=== PATIENT | male | born 1950 | race Caucasian/White ===

== ENCOUNTER 2020-08-23 10:49 | Inpatient (IN) ==
[2020-08-23] MEDS ORDERED: ONDANSETRON INJ 2 MG/ML 2 ML VIAL IV STA (11:10)
[2020-08-23] MEDS ORDERED: MoRPHine SULFATE 4 MG/ML 1 ML CARP\\VIAL IV PRN (11:10)
[2020-08-23] MEDS ORDERED: SODIUM CHLORIDE 0.9% 500 ML IV SCH (11:15)
[2020-08-23 11:34] LABS: Hematocrit (blood only) 40.5 % (42-52); Hemoglobin 13.4 g/dL (14.0-18.0); Mean Corpuscular Hemoglobin 30.3 pg (25-34); Mean Corpuscular Hgb Conc 33.1 g/dL (32-36); Mean Corpuscular Volume 91.6 fL (80-100); RDW Coefficient of Variation 16.9 % (11.5-14.5); RDW Standard Deviation 56.5 fL (36.4-46.3); Red Blood Count 4.42 M/uL (4.7-6.1); White Blood Count 6.78 K/uL (4.8-10.8)
[2020-08-23 11:43] LABS: iSTAT Creatinine 1.2 mg/dl (0.6-1.3); iSTAT Hemoglobin 12.9 g/dl (14.0-18.0); iSTAT Ionized Calcium 1.19 mmol/l (1.12-1.32); iSTAT Potassium 3.8 mmol/L (3.3-5.0)
--- NOTE | 2020-08-23 11:44 | Emergency Department Note ---
Impression & Plan Abdominal pain, Esophageal varices, Portal vein thrombosis, Acute upper gastrointestinal bleeding, Colitis ED Provider Note NAME: EARNEST POOL AGE: 70 SEX: M : 1950 ARRIVES VIA: Ambulance INFORMANT: Patient, ED PROVIDER(S): Jonh Karimi DO CHIEF COMPLAINT: Abdominal pain HPI: The patient is a 70-year-old male who presented to the emergency department for an evaluation of abdominal pain. The patient has had ongoing abdominal pain for the last 6 to 8 weeks. He has been seen in our facility as well as [facility] in [place]. He states that no specific diagnosis was made but at one time he was found to have a bowel obstruction. He denies having any nausea or vomiting but does complain of dark stool. He does not have a history of alcoholism but does have a history of esophageal varices and hepatitis C. He states his pain is moderate to severe. He was managed with outpatient pain medication but it does not appear to be helping at this time. He denies having any recent travel. He denies having any falls. He has not been seen by his primary care physician. He denies having any hematuria or flank pain. He states his pain is moderate to severe at this time. Worsened with any movement. ROS: See above HPI for pertinent positives & negatives. A total of 10 systems reviewed and were otherwise negative. PAST MEDICAL HISTORY: See Below PAST SURGICAL HISTORY: See Below FAMILY HISTORY: See Below SOCIAL HISTORY: See Below HOME MEDICATIONS: See Below ALLERGIES: See Below VITALS: See Below PHYSICAL EXAMINATION: GENERAL: Patient is awake alert in no acute distress patient is resting comfortably and showing no signs of anxiety EYES: The conjunctivae are clear. The pupils are round and reactive. EARS, NOSE, MOUTH AND THROAT: The nose is without any evidence of any deformity. Mucous membranes are moist. Tongue is midline. NECK: The neck is nontender and supple. RESPIRATORY: Normal respiratory effort is noted there is no evidence of wheezing rhonchi or rales CARDIOVASCULAR: Regular rate and rhythm noted there no murmurs rubs or gallops normal S1 normal S2. GASTROINTESTINAL: The abdomen is moderately distended diffusely tender. There is specific tenderness in the right lower quadrant. There is no guarding rigidity. Rectal exam revealed dark stool that was heme positive MUSCULOSKELETAL/EXTREMITIES: There is no evidence of gross deformity full range of motion is noted in the hips and shoulders. SKIN: There is no obvious evidence of any rash. There are no petechiae, pallor or cyanosis noted. NEUROLOGIC: Patient is awake alert and oriented x3 strength is symmetric patellar reflexes are 2+ bilaterally MEDICAL DECISION MAKING: The patient is a 70-year-old male who presented to the emergency department with multiple complaints including abdominal pain. The patient was having right lower quadrant abdominal pain. He had very severe pain on physical exam. I discussed the patient's laboratory and radiographic studies with him. He was found to have signs of upper GI bleeding and has a history of varices. He was treated with proton pump inhibitor. He was also treated with IV pain medication IV fluids. He was found to have signs of a nonocclusive portal vein thrombosis. Given the patient's history and findings I discussed his case with the on-call [facility] hospitalist. They have agreed to evaluate the patient in the emergency department for further management and disposition. At this time I do not feel the patient would do well with blood thinners given his mayo mitten GI bleeding. Triage Nursing notes reviewed. Prior medical records reviewed Vital Signs: reviewed and remarkable for elevated blood pressure Differential diagnosis: Etiologies such as appendicitis, diverticulitis, obstruction, inflammatory bowel disease, renal colic, PUD, biliary pathology, pancreatitis, mesenteric ischemia, aortic pathology, infections, genitourinary, UTI, perforated viscus, as well as others were entertained. ER treatment provided: See below Diagnostics interpreted by me: ECG: EKG was obtained in the emergency department. My interpretation is normal sinus rhythm at 76 bpm. There is no ectopy. There is no acute ST segment abnormalities noted. This was compared to a tracing from August 142019. No significant changes were noted. Cardiac Monitoring: An order was placed for continuous cardiac monitoring. The monitor shows a rate of 82 bpm with sinus rhythm. Laboratory studies: As stated above and show below. Imaging studies: See below Consultation(s): 1335: I discussed this case with Dr. Ceja. He will evaluate the patient in the emergency department for further management and disposition. Past Med/Surg History Medical History CAD (coronary artery disease) CVA (cerebral vascular accident) Surgical History H/O heart artery stent H/O inguinal hernia repair History of cholecystectomy Social History Smoking Status: Current every day smoker Tobacco Type: Cigarettes Preferred Language: Grenadian Feels Safe at Home: Yes Allergies Allergies Allergy/AdvReac Type Severity Reaction Status Date / Time fentanyl Allergy Severe WENT Verified 08/23/20 12:10 CRAZY, HALLUCINATIONS, BIZARRE BEHAVIOR Home Meds Home Medications Medication Instructions Recorded Confirmed cyanocobalamin (vitamin B-12) 500 mcg PO QAM 08/14/20 08/23/20 [Vitamin B-12] ferrous sulfate 325 mg PO QAM 08/14/20 08/23/20 finasteride [Proscar] 5 mg PO QAM 08/14/20 08/23/20 folic acid 1 mg PO QAM 08/14/20 08/23/20 metformin 500 mg PO BID 08/14/20 08/23/20 pantoprazole 40 mg PO QAM 08/14/20 08/23/20 tamsulosin 0.4 mg PO QAM 08/14/20 08/23/20 tiotropium bromide [Spiriva 2 puff INHALATION QAM 08/14/20 08/23/20 Respimat] atorvastatin 20 mg PO DAILY 08/23/20 08/23/20 budesonide-formoterol 2 puff INHALATION BID 08/23/20 08/23/20 cyclobenzaprine 5 mg PO BID PRN 08/23/20 08/23/20 furosemide 20 mg PO DAILY 08/23/20 08/23/20 gabapentin 600 mg PO TID 08/23/20 08/23/20 insulin aspart U-100 20 unit SUBCUT TIDM 08/23/20 08/23/20 insulin glargine 60 unit SUBCUT HS 08/23/20 08/23/20 magnesium oxide 420 mg PO DAILY 08/23/20 08/23/20 meclizine 12.5 mg PO TID PRN 08/23/20 08/23/20 melatonin 3 mg PO HS PRN 08/23/20 08/23/20 multivitamin with minerals 1 tab PO DAILY 08/23/20 08/23/20 [Multiple Vitamin-Minerals] Results & Data (ED) Vital Signs Vital Signs - 24 hr 08/23/20 10:44 08/23/20 11:00 08/23/20 11:02 Temperature 37 C Temperature Source Oral Pulse Rate 82 76 79 Pulse Rate from SpO2 Sensor 76 78 Pulse Rhythm Regular Pulse Strength Normal Respiratory Rate 22 17 19 Respiratory Effort / Characteristics Non-Labored Spontaneous Respiratory Depth Normal Respiratory Pattern Regular Blood Pressure 174/109 H 176/100 H Blood Pressure Mean 130 125 Blood Pressure Position Lying Pulse Oximetry 96 96 97 Oxygen Delivery Method Room Air Sepsis Recent Fever Within 48 Hours No Sepsis New/Unexplained Change in Mental Status No Sepsis Action Taken by Nursing No Action Required 08/23/20 11:30 08/23/20 11:32 08/23/20 12:01 Temperature Temperature Source Pulse Rate 91 H 82 Pulse Rate from SpO2 Sensor 81 81 Pulse Rhythm Pulse Strength Respiratory Rate 23 20 Respiratory Effort / Characteristics Respiratory Depth Respiratory Pattern Blood Pressure 180/117 H 194/109 H Blood Pressure Mean 148 137 Blood Pressure Position Pulse Oximetry 97 96 Oxygen Delivery Method Room Air Sepsis Recent Fever Within 48 Hours Sepsis New/Unexplained Change in Mental Status Sepsis Action Taken by Nursing 08/23/20 12:02 08/23/20 12:30 08/23/20 13:00 Temperature Temperature Source Pulse Rate 77 78 78 Pulse Rate from SpO2 Sensor 77 78 78 Pulse Rhythm Pulse Strength Respiratory Rate 22 14 14 Respiratory Effort / Characteristics Respiratory Depth Respiratory Pattern Blood Pressure 172/96 H 166/100 H Blood Pressure Mean 114 112 Blood Pressure Position Pulse Oximetry 97 94 94 Oxygen Delivery Method Sepsis Recent Fever Within 48 Hours Sepsis New/Unexplained Change in Mental Status Sepsis Action Taken by Nursing 08/23/20 13:30 08/23/20 14:00 08/23/20 14:30 Temperature Temperature Source Pulse Rate 79 79 81 Pulse Rate from SpO2 Sensor Pulse Rhythm Pulse Strength Respiratory Rate 12 16 18 Respiratory Effort / Characteristics Respiratory Depth Respiratory Pattern Blood Pressure 164/99 H 190/103 H 159/107 H Blood Pressure Mean 114 155 113 Blood Pressure Position Pulse Oximetry Oxygen Delivery Method Sepsis Recent Fever Within 48 Hours Sepsis New/Unexplained Change in Mental Status Sepsis Action Taken by [facility] Medications Current Medication List: was personally reviewed by me Laboratory Data Attestation: I reviewed the patient's lab results. Result diagrams: 08/23/20 11:22 08/23/20 11:22 Lab Results 08/23/20 08/23/20 08/23/20 Range/Units 11:22 11:22 11:22 WBC 6.78 (4.8-10.8) K/uL RBC 4.42 L (4.7-6.1) M/uL Hgb 13.4 L (14.0-18.0) g/dL POC Hgb (14.0-18.0) g/dl Hct 40.5 L (42-52) % POC Hct (42-52) % MCV 91.6 (80-100) fL MCH 30.3 (25-34) pg MCHC 33.1 (32-36) g/dL RDW Std Deviation 56.5 H (36.4-46.3) fL RDW Coeff of Anderson 16.9 H (11.5-14.5) % Plt Count 93 L (130-400) K/uL MPV 11.2 H (7.4-10.4) fL Immature Gran % (Auto) 0.3 % Neut % (Auto) 56.7 % Lymph % (Auto) 12.2 % Fillmore % (Auto) 9.3 % Eos % (Auto) 20.6 % Baso % (Auto) 0.9 % Neut # (Auto) 3.84 (1.4-6.5) K/uL Lymph # (Auto) 0.83 L (1.2-3.4) K/uL Fillmore # (Auto) 0.63 H (0.11-0.59) K/uL Eos # (Auto) 1.40 H (0-0.5) K/uL Baso # (Auto) 0.06 (0-0.2) K/uL Immature Gran # (Auto) 0.02 (0.00-0.02) K/uL Platelet Estimate Decreased L (Normal) PT 12.2 H (9.0-12.0) Seconds INR 1.2 H (0.9-1.1) APTT 28.8 (21.0-31.0) Seconds PTT Ratio 1.0 POC Sodium (135-144) mmol/L Sodium 140 (136-145) mmol/L POC Potassium (3.3-5.0) mmol/L Potassium 3.7 (3.5-5.1) mmol/L POC Chloride (101-112) mmol/L Chloride 112 H (98-107) mmol/L Carbon Dioxide 19 L (21-32) mmol/L POC Total CO2 (24-31) mmol/L Anion Gap 10.0 (3-11) POC Anion Gap (16-25) mmol/L POC BUN (7-18) mg/dl BUN 13 (7-18) mg/dl Creatinine 1.41 H (0.6-1.4) mg/dl POC Creatinine (0.6-1.3) mg/dl Est Cr Clr Drug Dosing 59.4 ml/min Est GFR ( Amer) 58.1 Est GFR (Non-Af Amer) 50.1 BUN/Creatinine Ratio 9.4 L (10-20) Glucose 128 H (70-99) mg/dl POC Glucose (other) (70-99) mg/dl Calcium 9.4 (8.5-10.1) mg/dl POC Ioniz Calcium Dirk (1.12-1.32) mmol/l Total Bilirubin 2.7 H (0.2-1) mg/dl AST 102 H (15-37) U/L ALT 49 (12-78) U/L Alkaline Phosphatase 149 H (45-117) U/L Troponin I < 0.015 (0-0.045) ng/ml Total Protein 7.9 (6.4-8.2) gm/dl Albumin 3.1 L (3.4-5.0) gm/dl Globulin 4.8 H (2.5-4.0) gm/dl Albumin/Globulin Ratio 0.7 L (0.9-2) Lipase 218 (73-393) U/L 08/23/20 Range/Units 11:30 WBC (4.8-10.8) K/uL RBC (4.7-6.1) M/uL Hgb (14.0-18.0) g/dL POC Hgb 12.9 L (14.0-18.0) g/dl Hct (42-52) % POC Hct 38 L (42-52) % MCV (80-100) fL MCH (25-34) pg MCHC (32-36) g/dL RDW Std Deviation (36.4-46.3) fL RDW Coeff of Anderson (11.5-14.5) % Plt Count (130-400) K/uL MPV (7.4-10.4) fL Immature Gran % (Auto) % Neut % (Auto) % Lymph % (Auto) % Fillmore % (Auto) % Eos % (Auto) % Baso % (Auto) % Neut # (Auto) (1.4-6.5) K/uL Lymph # (Auto) (1.2-3.4) K/uL Fillmore # (Auto) (0.11-0.59) K/uL Eos # (Auto) (0-0.5) K/uL Baso # (Auto) (0-0.2) K/uL Immature Gran # (Auto) (0.00-0.02) K/uL Platelet Estimate (Normal) PT (9.0-12.0) Seconds INR (0.9-1.1) APTT (21.0-31.0) Seconds PTT Ratio POC Sodium 142 (135-144) mmol/L Sodium (136-145) mmol/L POC Potassium 3.8 (3.3-5.0) mmol/L Potassium (3.5-5.1) mmol/L POC Chloride 111 (101-112) mmol/L Chloride (98-107) mmol/L Carbon Dioxide (21-32) mmol/L POC Total CO2 18 L (24-31) mmol/L Anion Gap (3-11) POC Anion Gap 19.0 (16-25) mmol/L POC BUN 12 (7-18) mg/dl BUN (7-18) mg/dl Creatinine (0.6-1.4) mg/dl POC Creatinine 1.2 (0.6-1.3) mg/dl Est Cr Clr Drug Dosing ml/min Est GFR ( Amer) Est GFR (Non-Af Amer) BUN/Creatinine Ratio (10-20) Glucose (70-99) mg/dl POC Glucose (other) 131 H (70-99) mg/dl Calcium (8.5-10.1) mg/dl POC Ioniz Calcium Dirk 1.19 (1.12-1.32) mmol/l Total Bilirubin (0.2-1) mg/dl AST (15-37) U/L ALT (12-78) U/L Alkaline Phosphatase (45-117) U/L Troponin I (0-0.045) ng/ml Total Protein (6.4-8.2) gm/dl Albumin (3.4-5.0) gm/dl Globulin (2.5-4.0) gm/dl Albumin/Globulin Ratio (0.9-2) Lipase (73-393) U/L Administered Medications Discontinued Medications Sodium Chloride (Nss) 500 mls @ 999 mls/hr IV .Q31M ELGIN Stop: 08/23/20 11:45 Last Infusion: 08/23/20 12:27 Dose: 0 mls/hr Documented by: [id number] Admin: 08/23/20 11:33 Dose: 999 mls/hr Documented by: [id number] Pantoprazole Sodium 40 mg/ (Syringe) 10 mls @ 5 mls/min IV NOW ONE Stop: 08/23/20 13:07 Last Admin: 08/23/20 14:15 Dose: 5 mls/min Documented by: [id number] Famotidine (Pepcid 20mg Iv Push) 20 mg in 5 mls @ 2.5 mls/min IV NOW STA Stop: 08/23/20 13:07 Last Admin: 08/23/20 13:25 Dose: 2.5 mls/min Documented by: [id number] Ioversol (Ioversol 100ml) 94 ml IV ONCE ONE Stop: 08/23/20 11:47 Last Admin: 08/23/20 11:47 Dose: 94 ml Documented by: [id number] Morphine Sulfate (Morphine Sulfate 4 Mg/Ml 1 Ml Carp\Vial) 4 mg IV Q15M PRN PRN Reason: Pain Stop: 09/06/20 11:09 Last Admin: 08/23/20 11:33 Dose: 4 mg Documented by: [id number] Ondansetron HCl (Ondansetron Inj 2 Mg/Ml 2 Ml Vial) 4 mg IV NOW STA Stop: 08/23/20 11:11 Last Admin: 08/23/20 11:33 Dose: 4 mg Documented by: [id number] Imaging Data Radiologist's Impression: Patient: EARNEST POOL Admit Date: 08/23/20 MR#: [id number] Address1: [address] [place] [address] Acct ID:[id number] Address2: Date: 1950 [facility] Zip: [place] [address] Age: 70 Location: ED Sex: M Room/Bed: Att Phy: Diagnosis: ABD PAIN Marialuisa Phy: Osmany Molina MD Service Date: 08/23/20 [facility] Phy: Interpreting Phy: James Reyna Admit Phy: Ordering Phy: Jonh Karimi DO cc: ~ ABDOMEN AND PELVIS CT WITH IV CONTRAST CT DOSE: 973.46 mGycm HISTORY: Acute generalized abdominal pain. pain, hx of SBO TECHNIQUE: Multiaxial CT images of the abdomen and pelvis were performed following the IV administration of 94 cc of Optiray 320, A dose lowering technique was utilized adhering to the principles of ALARA. COMPARISON STUDY: CT abdomen and pelvis 08/14/2020 FINDINGS: Clear lung bases. No pneumatosis or pneumoperitoneum. Imaged inferior cardiac chambers are unremarkable with coronary artery calcifications. Mild/moderate splenomegaly. Mild generalized pancreatic atrophy. Unremarkable adrenal glands. Cholecystectomy. Cirrhotic liver disease without focal hepatic mass lesion identified. Upper abdominal varices. 2.9 cm partially occlusive filling defect involves the main portal vein. Unremarkable right kidney. 1.2 cm hypodense lesion of the interpolar left kidney suggest probable cyst. Prostamegaly with moderate urinary bladder wall thickening suggestive of chronic bladder outlet obstruction. Small fat and fluid filled left inguinal hernia. Mild to moderate abdominopelvic ascites. 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 Unchanged mildly prominent retroperitoneal lymph nodes measure up to 7 mm. Periesophageal varices with distal esophageal wall thickening. Duodenal diverticulum. Mild the prominent small bowel loops measure up to 2.8 cm. Several loops of small bowel are fluid-filled. No bowel obstruction. There is mild wall thickening involving the ascending colon, hep atic flexure and proximal transverse colon. Mild wall thickening of the terminal ileum. Visualized appendix appears noninflamed. Unremarkable soft tissues. Bones appear intact. Degenerative changes of the spine, pelvis and hips. IMPRESSION: 1. Cirrhotic liver disease with stigmata of portal venous hypertension including splenomegaly with upper abdominal varices and mild to moderate splenomegaly. 2. 3 cm partially occlusive thrombus of the main portal vein. 3. Wall thickening of the ascending colon, hepatic flexure and proximal transverse colon is suggestive of portal colopathy. An infectious or inflammatory colitis is considered less likely. Mild wall thickening of the terminal ileum is also likely secondary to fluid overload with cirrhotic liver disease, enteritis considered less likely. 4. The visualized appendix appears noninflamed. 5. No bowel obstruction. ACT 112: Negative or not required by law. The above report was generated using voice recognition software. It may contain grammatical, syntax or spelling errors. Electronically signed by: Cesar Reyna M.D. 08/23/2020 12:18 PM Dictated: 08/23/20 1203 Transcribed: 08/23/201202 Blood Pressure Blood Pressure Findings: Elevated blood pressure Blood Pressure Disposition: further management by hospitalist Discharge Plan Visit Data Chief Complaint: Abdominal Pain ED Provider: Jonh Karimi Discharge Problem: Abdominal pain, Esophageal varices, Portal vein thrombosis, Acute upper gastrointestinal bleeding, Colitis Patient Disposition: Admitted As Inpatient Discharge Instructions Interventions: ED Discharge Assessment Last Done: 08/23/20 16:00 Discharge Problem: Abdominal pain Qualifiers: Abdominal location: right lower quadrant Qualified Code(s): R10.31 - Right lower quadrant pain Esophageal varices Qualifiers: Esophageal varices type: unspecified type Esophageal varices bleeding: without bleeding Qualified Code(s): I85.00 - Esophageal varices without bleeding
[2020-08-23 11:46] LABS: INR 1.2 (0.9-1.1); Partial Thromboplastin Time 28.8 Seconds (21.0-31.0); Prothrombin Time 12.2 Seconds (9.0-12.0)
[2020-08-23] MEDS ORDERED: IOVERSOL 100ml IV ONE (11:46)
[2020-08-23 11:51] LABS: Alanine Aminotransferase 49 U/L (12-78); Albumin Level 3.1 gm/dl (3.4-5.0); Aspartate Aminotransferase 102 U/L (15-37); BUN Creatinine Ratio 9.4 (10-20); Blood Urea Nitrogen 13 mg/dl (7-18); Calcium 9.4 mg/dl (8.5-10.1); Carbon Dioxide 19 mmol/L (21-32); Chloride 112 mmol/L (98-107); Creatinine Clr Calc Pharmacy 59.4 ml/min; Est GFR (African American) 58.1; Est GFR (Non-African American) 50.1; Glucose 128 mg/dl (70-99); Lipase 218 U/L (73-393); Potassium 3.7 mmol/L (3.5-5.1); Sodium 140 mmol/L (136-145)
[2020-08-23 11:53] LABS: Basophils # (auto) 0.06 K/uL (0-0.2); Basophils % (auto) 0.9 %; Eosinophils % (auto) 20.6 %; Immature Granulocytes # (auto) 0.02 K/uL (0.00-0.02); Immature Granulocytes % (auto) 0.3 %; Lymphocytes # (auto) 0.83 K/uL (1.2-3.4); Lymphocytes % (auto) 12.2 %; Mean Platelet Volume 11.2 fL (7.4-10.4); Monocytes # (auto) 0.63 K/uL (0.11-0.59); Monocytes % (auto) 9.3 %; Neutrophils # (auto) 3.84 K/uL (1.4-6.5); Neutrophils % (auto) 56.7 %; Platelet Count 93 K/uL (130-400); Platelet Estimate Decreased (Normal)
[2020-08-23 11:56] LABS: Albumin Globulin Ratio 0.7 (0.9-2); Alkaline Phosphatase 149 U/L (45-117); Bilirubin,Total 2.7 mg/dl (0.2-1); Globulin 4.8 gm/dl (2.5-4.0); Total Protein 7.9 gm/dl (6.4-8.2); Troponin I < 0.015 ng/ml (0-0.045)
--- NOTE | 2020-08-23 11:57 | Electrocardiogram Report ---
Test Reason : Blood Pressure : / mmHG Vent. Rate : 076 BPM Atrial Rate : 076 BPM P-R Int : 170 ms QRS Dur : 096 ms QT Int : 426 ms P-R-T Axes : 071 043 045 degrees QTc Int : 479 ms Poor data quality, interpretation may be adversely affected Normal sinus rhythm Normal ECG When compared with ECG of 14-AUG-2020 18:12, No significant change was found Confirmed by Jaun Guerrero ([id number]) on 08/23/2020 11:56:35 AM Referred By: ED Confirmed By:Jose Guerrero
--- NOTE | 2020-08-23 12:19 | CT Scan Report ---
ABDOMEN AND PELVIS CT WITH IV CONTRAST CT DOSE: 973.46 mGycm HISTORY: Acute generalized abdominal pain. pain, hx of SBO TECHNIQUE: Multiaxial CT images of the abdomen and pelvis were performed following the IV administrat ion of 94 cc of Optiray 320, A dose lowering technique was utilized adhering to the principles of AL MIKE. COMPARISON STUDY: CT abdomen and pelvis 08/14/2020 FINDINGS: Clear lung bases. No pneumatosis or pneumoperitoneum. Imaged inferior cardiac chambers are unremarkable with coronary artery calcifications. Mild/moderate splenomegaly. Mild generalized pancre atic atrophy. Unremarkable adrenal glands. Cholecystectomy. Cirrhotic liver disease without focal hep atic mass lesion identified. Upper abdominal varices. 2.9 cm partially occlusive filling defect invol ves the main portal vein. Unremarkable right kidney. 1.2 cm hypodense lesion of the interpolar left k idney suggest probable cyst. Prostamegaly with moderate urinary bladder wall thickening suggestive of chronic bladder outlet obstruction. Small fat and fluid filled left inguinal hernia. Mild to moderat e abdominopelvic ascites. 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 Unchanged mildly prominent retroperitoneal lymph nodes measure up to 7 mm. Periesophag eal varices with distal esophageal wall thickening. Duodenal diverticulum. Mild the prominent small b owel loops measure up to 2.8 cm. Several loops of small bowel are fluid-filled. No bowel obstruction. There is mild wall thickening involving the ascending colon, hepatic flexure and proximal transverse colon. Mild wall thickening of the terminal ileum. Visualized appendix appears noninflamed. Unremark able soft tissues. Bones appear intact. Degenerative changes of the spine, pelvis and hips. IMPRESSION: 1. Cirrhotic liver disease with stigmata of portal venous hypertension including splenomegaly with up per abdominal varices and mild to moderate splenomegaly. 2. 3 cm partially occlusive thrombus of the main portal vein. 3. Wall thickening of the ascending colon, hepatic flexure and proximal transverse colon is suggestiv e of portal colopathy. An infectious or inflammatory colitis is considered less likely. Mild wall thi ckening of the terminal ileum is also likely secondary to fluid overload with cirrhotic liver disease , enteritis considered less likely. 4. The visualized appendix appears noninflamed. 5. No bowel obstruction. ACT 112: Negative or not required by law. The above report was generated using voice recognition software. It may contain grammatical, syntax o r spelling errors. Electronically signed by: Cesar Reyna M.D. 08/23/2020 12:18 PM
[2020-08-23] MEDS ORDERED: FAMOTIDINE 20MG IV PUSH 20 MG/5 ML SYR IV STA (13:06)
[2020-08-23] MEDS ORDERED: PANTOprazole 40 MG in SYRINGE 0 ML IV ONE (13:06)
--- NOTE | 2020-08-23 14:48 | History & Physical Report ---
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 Patient is a moderately poor historian, clarification of his medications and medical condition is pending records from multiple hospital systems. RLQ Ab Pain, multifactorial. Developed about 7 weeks ago while in the [facility] for treatment of hepatic encephalopathy Was treated for small bowel obstruction in [facility] with some improvement, but incomplete resolution followed by recurrence of symptoms Complex abdominal history including cirrhotic ascites, multiple left-sided hernia repairs, congenital repair of esophagus and distant cholecystectomy resulting in adhesions, and recent melena CT abdomen shows ascending colon thickening, cirrhotic liver, portal hypertension, splenomegaly Melena treatment as below as below Diagnostic paracentesis to evaluate for SBP and cytology pending. Does not appear patient has had a SAAG or prior tap. Defer antibiotics at this time. No leukocytosis or fever. Stool studies pending. Given loose bowels with colon thickening C. difficile ordered Hydromorphone 0.25/0.5 scaled analgesia for breakthrough pain Melena - GI Consult Pending - Protonix IV - NPO - Hemoglobin 13.4 Liver cirrhosis 2/2 hepatitis C complicated by esophageal varices and prior hepatic encephalopathy Patient reports he was hep C positive between and the Received hep C treatment, recurred after 2 years, and then received 6 weeks of additional treatment and was told he was cured Patient reportedly treated at [facility] approximately 7 weeks ago for hepatic encephalopathy. Per assisted reconciliation patient not on rifaximin/lactulose since arriving there last week. Defer at this time, ammonia pending. Mentation normal at time of visit. - Nadolol 40mg x1 started for hx varices and HTN on admission Portal vein thrombosis Patient with portal vein thrombosis, seen on CTabdomen 3 cm without mesenteric extension. Discussed with radiology, also seen on 08/14 CT. Suspect slow progression Patient reports a history of esophageal varices with recurrent bleeding and current melena. Defer anticoagulation in the setting of potential active GI bleed with management as above GI consulted Coronary artery disease Last records available from [facility] 07/22/2019 office visit. Patient missed 2019 follow-up Patient with cardiac cath 01/04 with stenting to LAD. Patient not on beta- klaudia, aspirin, or Plavix at last cardiology follow-up. 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 Nadolol as above. Type 2 diabetes mellitus PRACTICE BILLING ASSOCIATE metformin held Insulin weight-based Glucose checks AC/at bedtime BMP daily A1c pending DVT prophylaxis: SCDs. Defer pharmacal prophylaxis in the setting of potential GI bleed Diet: N.p.o. Disposition: Medical/surgical with telemetry CODE STATUS: Conditional code. No compressions, okay with trial of intubation, medications, and shock. Discussed with patient at bedside. (2) Esophageal varices: (3) Acute upper gastrointestinal bleeding: (4) Colitis: (5) Liver cirrhosis: (6) Diabetes: (7) Hypertension: History of Present Illness Chief Complaint: Abdominal pain Primary Care Provider: Osmany Molina MD 70-year-old male with a past medical history of liver cirrhosis with varices due to hep C, diabetes, coronary artery disease, hypertension who presents with continued unresolving abdominal pain Husam reports that his abdominal pain began 7 weeks ago while he was hospitalized in [facility] for confusion due to his liver disease. He reports that he had been experiencing hand tremors/shakes and confusion which caused him to be admitted to the hospital and treated for hepatic encephalopathy. At that time he developed right lower quadrant pain which continued through admission and was present after discharge. His pain gradually increase over 24 hours once he was discharged home after approximately a week or 2 in the hospital and he called EMS who transported him to [facility]. At that time he reports that imaging was done and he was told he had a softball sized small bowel obstruction. He was treated conservatively with oral laxatives, rectal laxatives, and n.p.o. status and gradually got better. He reports his pain improved to a 2/10 in intensity but never completely went away. He was discharged to [facility] where he felt okay before the pain started come back and he presented by EMS to [facility] on 08/14. At that time CT scan did not show any small bowel obstruction, and he was discharged home. He re-presents with worsening abdominal pain and is found to have a portal vein thrombosis. Alfredo endorses his pain is in the right lower quadrant, with some radiation to the right upper quadrant. It fluctuates from a 2 out of 10 to excruciating 8/10 "only not a 10 because it is not as bad as kidney stones ". He has had soft non-liquid bowel movements which are black. He takes iron supplements. His pain does not radiate over to the left side. Movement and deep breaths causes pain to worsen. His right lower quadrant is extremely sensitive to the touch. He does not notice any significant change with meals. He reports a history of congenital esophagus surgery and a cholecystostomy. Prior small bowel obstruction as noted above. Medical history: Patient is a very poor historian of his past medical history. He reports that his most accurate records are from [facility] and Dr. Rebecca Aguila cardiology. His prior PCP is [facility], but he reports he does not follow-up with them and has been frustrated with his care in the past. Otherwise endorses medical history as noted above. Surgical history: Reviewed Medications: Patient is a poor historian is not able to name his meds. Is pending from outpatient providers. Allergies: Reports confusion to fentanyl Social: Currently living at [facility] in [place]. 60-year tobacco history, currently smokes a few cigarettes per day. Denies recent alcohol use, minimal past use. Occasional recreational marijuana use, none in 6 years. CODE STATUS: Conditional code. No compressions. Okay with trial of intubation, medications, and shock. Discussed and confirmed with patient at bedside. Allergies Allergy/AdvReac Type Severity Reaction Status Date / Time fentanyl Allergy Severe WENT Verified 08/23/20 12:10 CRAZY, HALLUCINATIONS, BIZARRE BEHAVIOR Home Medications Home Medications Medication Instructions Recorded Confirmed Type cyanocobalamin (vitamin B-12) 500 mcg PO QAM 08/14/20 08/23/20 History [Vitamin B-12] ferrous sulfate 325 mg PO QAM 08/14/20 08/23/20 History finasteride [Proscar] 5 mg PO QAM 08/14/20 08/23/20 History folic acid 1 mg PO QAM 08/14/20 08/23/20 History metformin 500 mg PO BID 08/14/20 08/23/20 History pantoprazole 40 mg PO QAM 08/14/20 08/23/20 History tamsulosin 0.4 mg PO QAM 08/14/20 08/23/20 History tiotropium bromide [Spiriva 2 puff INHALATION QAM 08/14/20 08/23/20 History Respimat] atorvastatin 20 mg PO DAILY 08/23/20 08/23/20 History budesonide-formoterol 2 puff INHALATION BID 08/23/20 08/23/20 History cyclobenzaprine 5 mg PO BID PRN 08/23/20 08/23/20 History furosemide 20 mg PO DAILY 08/23/20 08/23/20 History gabapentin 600 mg PO TID 08/23/20 08/23/20 History insulin aspart U-100 20 unit SUBCUT TIDM 08/23/20 08/23/20 History insulin glargine 60 unit SUBCUT HS 08/23/20 08/23/20 History magnesium oxide 420 mg PO DAILY 08/23/20 08/23/20 History meclizine 12.5 mg PO TID PRN 08/23/20 08/23/20 History melatonin 3 mg PO HS PRN 08/23/20 08/23/20 History multivitamin with minerals 1 tab PO DAILY 08/23/20 08/23/20 History [Multiple Vitamin-Minerals] Past Med/Surg History Medical History (Updated 08/24/20 @ 10:48 by Chris Ceja) CAD (coronary artery disease) CVA (cerebral vascular accident) Diabetes Esophageal varices Hepatic encephalopathy history of - 2019 History of hepatitis C Hypertension Liver cirrhosis Surgical History (Updated 08/24/20 @ 10:48 by Chris Ceja) H/O heart artery stent LAD stent - 2017 H/O inguinal hernia repair left side History of cholecystectomy Family History Other Family history non-contributory Social History Smoking Status: Current some day smoker Tobacco Type: Cigarettes Do You Dip or Chew Tobacco: No; Hx Alcohol Use: No Hx Substance Use: No Preferred Language: [employer] Required: No Beliefs That Will Affect Care: Sabianist Sabianist Beliefs: HOLINESS Current Living Situation: Personal Care Facility Current Living Situation Comment: ASSISTED LIVING Feels Safe at Home: Yes Safety Concerns: Feels Safe At This Time Assistive Devices: Glasses Review of Systems Review of Systems: Constitutional: Denies fever, chills, malaise. Endorses 20 pounds weight gain in several months. Eyes: Denies double vision, vision change, eye pain ENT: Denies ear pain, sore throat, sinus pain Cardiovascular: Denies Chest pain, chest pressure, palpitations. Endorses intermittent extremity swelling, extremities currently at baseline Respiratory: Dors is s versus intermittent cough, none recently. No difficulty breathing Gastrointestinal: See HPI Genitourinary: Denies pain with urination, urinary urgency, urinary frequency Musculoskeletal: Denies acute weakness/joint aches Integumentary:Denies rash, lesions, bruising Neurological: Denies headache, numbness, tingling, focal weakness Physical Exam Physical Exam: General: A&Ox3. NAD. Cooperative. HEENT: Atraumatic, normocephalic. Pupils equal and reactive to light accom modation. [place] acuity grossly intact, hearing grossly intact. Pulm: CTAB A&P. -wheezes, -rales, -rhonchi. Symmetrical chest rise. No increase work of breathing. No respiratory distress. Cardiac: RRR, -mrg. Radial pulses intact and symmetrical. Abdominal: Mildly distended, exquisitely tender in the right lower quadrant with some radiation of pain to the right upper quadrant on palpation. No involuntary guarding. Minimal left lower quadrant tenderness. [place] dependent dullness to percussion. Midline scar, post cholecystectomy scar present. Bowel sounds intact. Extremities: PT pulse intact bilaterally, trace ankle edema bilaterally. Results & Data Results & Data ([facility]) Vital Signs (Past 12 Hours) Vital Signs Temp Pulse Resp BP Pulse Ox 08/23/20 14:00 79 16 190/103 H 08/23/20 13:30 79 12 164/99 H 08/23/20 13:00 78 14 166/100 H 94 08/23/20 12:30 78 14 172/96 H 94 08/23/20 12:02 77 22 97 08/23/20 12:01 82 20 194/109 H 96 08/23/20 11:30 91 H 23 180/117 H 97 08/23/20 11:02 79 19 97 08/23/20 11:00 76 17 176/100 H 96 08/23/20 10:44 37 C 82 22 174/109 H 96 Supervising Physician Co-Signing Physician Notes Attending Attestation & Admission Note: Pt seen/examined, chart reviewed, admission care plan d/w PGY3 Dr Ham Mallory. I agree w/ the ivy components of his admission documentation. 70yo male with prior h/o Hepatitis C s/p treatment (eradicated??) but unfortunately development of cirrhosis who presents with RLQ abdominal pain. Present for at least 4 weeks if not longer. Initially pain may have been associated with eating but at this point the pain can be at any time. Movement and twisting makes the pain worse. Having a bowel movement neither makes it better nor makes it worse. He does report frequent "pudding-like", black stools for weeks. "It just pours out of me." Pt's recent history is complicated - had 2 lengthy hospital stays with first being at [facility] in [place] for hepatic encephalopathy. 2nd stay was at [facility] for ?SBO. Records are not available from those stays at the time of my admission assessment. PMH, PSH, allergies, meds, sochx - reviewed BPs elevated ow stable vitals gen - NAD skin - no jaundice mouth - MMM heart - RRR, s1 s2 lungs - CTA b/l abd - marked distension, probable ascites, RLQ tenderness but also tender over epigastric region, multiple scars on abd wall; no inguinal hernia on right; left-sided inguinal hernia - reducible rectal deferred ext - trace edema b/l labs reviewed mildly elevated LFTs CT abd/pelvis reviewed A/P: 1. RLQ abdominal pain of several weeks duration; etiology uncertain. CT with multiple bowel findings none of which perfectly explains the pain. Differential - SBP vs colitis vs small bowel ischemia (mesenteric ischemia) vs infectious process (c diff, etc) vs non-GI (musculoskeletal, etc) vs UTI vs other Plan - diagnostic/therapeutic paracentesis; r/o SBP u/a c diff and stool cx consider mesenteric dopplers 2. report of melena stools - hemoccult test; H/H serially; PPI; GI consultation requested for #1 and #2 3. DM 4. cirrhosis w/ h/o hepatic encephalopathy - cont rifaximin; may need to reduce or hold lactulose due to frequent loose stools no signs of hyperammonemia clinically f 5. PVT - until status of upper GI tract is known and once GI bleeding is ruled out only then consider anticoagulation. other plans per Dr Mallory. Chris Ceja MD Resident Activity Tracking Resident Involvement: Resident Care Provided Care Provided: Adult Hospital Medicine (1) Esophageal varices Esophageal varices bleeding: without bleeding Esophageal varices type: unspecified type Qualified Code(s): I85.00 - Esophageal varices without bleeding (2) Abdominal pain Abdominal location: generalized Qualified Code(s): R10.84 - Generalized abdominal pain
--- NOTE | 2020-08-23 16:08 | Ultrasound Report ---
PARACENTESIS UNDER ULTRASOUND GUIDANCE CLINICAL HISTORY: Cirrhosis and ascites. COMPARISON STUDY: Abdominal CT dated 08/23/2020. PROCEDURE: The risks, benefits, and alternatives to the procedure were discussed with the patient who voiced understanding. Written informed consent was obtained. Following real-time ultrasound localiza tion of a suitable pocket of fluid in the left lower quadrant, the abdomen was prepped and draped in the usual sterile fashion. The skin and soft tissues were anesthetized with 1% lidocaine. The sheathe d paracentesis needle was inserted under ultrasound guidance and approximately 2.3 liters of straw- c olored ascitic fluid was removed by vacuum suction. The procedure was well tolerated and without imme diate complication. A sample was sent for laboratory analysis. The patient left the department in sat isfactory condition and was returned to the emergency department for further observation. IMPRESSION: Successful ultrasound-guided paracentesis with removal of approximately 2.3 liters of asc itic fluid. ACT 112: Negative or not required by law. Electronically signed by: Titi Jara M.D. 08/23/2020 4:06 PM
[2020-08-23 16:47] LABS: Albumin Peritoneal Fluid < 0.6 g/dl; Glucose Peritoneal Fluid 120 mg/dl
[2020-08-23 16:54] LABS: Amylase Peritoneal Fluid 23 U/L; LDH Peritoneal Fluid 36 U/L; Lipase Peritoneal Fluid 261 U/L; Total Protein Peritoneal Fluid 0.5 g/dl; Triglyceride Peritoneal Fluid 21 mg/dl
[2020-08-23] MEDS ORDERED: INSULIN ASPART 100 UNITS/ML 3 ML PEN SC SCH (16:59)
[2020-08-23] MEDS ORDERED: CARBOHYDRATES FOR HYPOGLYCEMIA PO PRN (16:59)
[2020-08-23] MEDS ORDERED: GLUCAGON FOR INJ 1 MG VIAL SQ PRN (16:59)
[2020-08-23] MEDS ORDERED: DEXTROSE 50% 50 ML SYRINGE IV PRN (16:59)
[2020-08-23] MEDS ORDERED: GLUCOSE 40% GEL 15 GM TUBE PO PRN (16:59)
[2020-08-23] MEDS ORDERED: POLYETHYLENE (MIRALAX) 17 GM PACK PO PRN (16:59)
[2020-08-23] MEDS ORDERED: ONDANSETRON INJ 2 MG/ML 2 ML VIAL IV PRN (16:59)
[2020-08-23] MEDS ORDERED: GLUCOSE 10 TABS/TUBE PO PRN (16:59)
[2020-08-23] MEDS ORDERED: HYDROmorphone INJ 0.5 MG/0.5 ML SYR IV PRN ×2 (16:59)
[2020-08-23 17:29] LABS: Appearance Peritoneal Fluid CLEAR; Basophils, Fluid 0 %; Color Peritoneal Fluid YELLOW; Eosinophils, Fluid 1 %; Lymphocytes, Fluid 18 %; Mono,Macrophage,Mesothelial 77 %; Neutrophils, Fluid 4 %; RBC Peritoneal Fluid (A) < 3000 /uL; WBC Peritoneal Fluid (A) 122 /ul (0-300)
[2020-08-23] MEDS: nadoloL 40 MG TAB PO SCH (18:04)
[2020-08-23] MEDS: NSS + 20MEQ KCL 20 MEQ/1,000 ML BAG IV SCH (18:04)
[2020-08-23] MEDS: PANTOprazole 40 MG in DEXTROSE 5% 100 ML IV SCH ×2 (18:04→22:33)
[2020-08-23 20:31] LABS: Appearance Urine Clear (Clear); Bacteria Urine Automated Negative (Negative); Bilirubin Urine Negative (Negative); Blood Urine 2+ (Negative); Color Urine Yellow; Epithelial Cell Urine Auto 0-5 /lpf (0-5); Glucose Urine UA Negative (Negative); Ketones Urine Negative (Negative); Leukocyte Esterase Urine Negative (Negative); Nitrite Urine Negative (Negative); Protein Urine 2+ (Negative); RBC Urine Automated 0-4 /hpf (0-4); Urobilinogen Urine Negative (Negative); pH Urine 5.5 (4.5-7.5)
[2020-08-23] MEDS: INSULIN GLARGINE SOLOSTAR 100 UNITS/ML 3 ML PEN SC SCH (21:18)
[2020-08-24] MEDS: INSULIN ASPART 100 UNITS/ML 3 ML PEN SC SCH ×5 (00:13→21:17)
[2020-08-24] MEDS: PANTOprazole 40 MG in DEXTROSE 5% 100 ML IV SCH ×3 (03:23→13:23)
[2020-08-24] MEDS: NSS + 20MEQ KCL 20 MEQ/1,000 ML BAG IV SCH (05:55)
[2020-08-24 06:59] LABS: Hematocrit (blood only) 35.2 % (42-52); Mean Corpuscular Hemoglobin 31.4 pg (25-34); Mean Corpuscular Hgb Conc 34.1 g/dL (32-36); Mean Corpuscular Volume 92.1 fL (80-100); RDW Coefficient of Variation 16.7 % (11.5-14.5); RDW Standard Deviation 55.8 fL (36.4-46.3); Red Blood Count 3.82 M/uL (4.7-6.1); White Blood Count 4.66 K/uL (4.8-10.8)
[2020-08-24 07:09] LABS: Mean Platelet Volume 10.4 fL (7.4-10.4); Platelet Count 69 K/uL (130-400)
[2020-08-24 07:24] LABS: Albumin Level 2.4 gm/dl (3.4-5.0); BUN Creatinine Ratio 8.3 (10-20); Calcium 8.4 mg/dl (8.5-10.1); Creatinine Clr Calc Pharmacy 68.8 ml/min; Est GFR (African American) 70.6; Est GFR (Non-African American) 60.9; Potassium 3.9 mmol/L (3.5-5.1)
[2020-08-24 07:33] LABS: Albumin Globulin Ratio 0.6 (0.9-2); Basophils # (auto) 0.08 K/uL (0-0.2); Basophils % (auto) 1.7 %; Bilirubin,Total 2.3 mg/dl (0.2-1); Eosinophils # (auto) 1.39 K/uL (0-0.5); Eosinophils % (auto) 29.8 %; Globulin 3.7 gm/dl (2.5-4.0); Immature Granulocytes # (auto) 0.01 K/uL (0.00-0.02); Immature Granulocytes % (auto) 0.2 %; Lymphocytes # (auto) 0.74 K/uL (1.2-3.4); Lymphocytes % (auto) 15.9 %; Monocytes # (auto) 0.47 K/uL (0.11-0.59); Monocytes % (auto) 10.1 %; Neutrophils # (auto) 1.97 K/uL (1.4-6.5); Neutrophils % (auto) 42.3 %; Total Protein 6.1 gm/dl (6.4-8.2)
[2020-08-24 08:19] LABS: Estimated Average Glucose 94 mg/dl; Hemoglobin A1C 4.9 % (4.5-5.6)
[2020-08-24] MEDS: INSULIN GLARGINE SOLOSTAR 100 UNITS/ML 3 ML PEN SC SCH ×3 (08:35→21:18)
[2020-08-24] MEDS: ATORVASTATIN 20 MG TAB PO SCH (08:36)
[2020-08-24] MEDS: nadoloL 40 MG TAB PO SCH (08:36)
--- NOTE | 2020-08-24 08:48 | Billing Data ---
Date of Service August 23, 2020 Coding Level of Care Code 58981 Initial Inpt Care Lvl 3
--- NOTE | 2020-08-24 08:51 | Gastrointestinal Consultation ---
Date of Consultation August 24, 2020 Assessment & Plan (1) Abdominal pain: Pt is a difficult historian and has had at least 2 outside hospital admissions recently. Need to get [facility], [facility] and [facility] records to help guide treatment. He could have some chronic ischemia causing this given AAA so that is in the differential. With loose stools and thickening of TI and R colon, Cdiff also in the differential and that is pending. black, heme postive stools---he is on Fe which can contribute to dark stools but recommend EGD this admission. He does not appear to be having brisk bleeding given chronicity. Thickened TI and colon on CT as above--will see in records if/when he had colonsocopy Diarrhea--Cdiff and o/p pending--he is on Mag oxide as outpt so that can contribute elevated ammonia---62 is elevated but not in range would expect to affect much clinically. Will follow for now. Ascites--no evidence of SBP cirrhosis--possibly from hep C but would like to review outside records. Discussed with DR Uriarte History of Present Illness Reason for Consultation: melena, cirrhosis Requesting Physician: DR Ham Mallory Attending Physician: Xiang Uriarte MD History of Present Illness CC RLQ pain HPI--Pt states was living at facility in [place] and most recently at [facility] in [place]. He states he has had a lot of care at [facility]. He is a difficult historian. Apparently he has hx of hep C and cirrhosis. He states was in [facility] in last couple months for pneumonia then [facility] subequently for RLQ pain. He states he was given laxatives at [facility] but despite no specific laxtives he was continuing to have diarrhea on DC up to 5-7 per day. He states stools have been black for weeks but on Fe. He was seen in this ER 08/[address] a/p showing portal HTN and cirrhosis, ascites. . He cam e to ER again for RLQ pain and admitted. He states RLQ pain better than it has been in weeks this am. On CT a/p this admit he had splenomegaly pancreas atropy, s/p carlos a, cirrhosis, varices, partially occluding PV thrombus, mild to mod ascites, AAA 3.1 cm, esoph varices, esoph thickening, mild wall thickening of TI, AC, HF, prox TC. Hgb on admit 13.4 (12.4 08/14/2020) and 12 this am. LFTS elevated vs 08/14/2020 but better today. He had paracentesis done yesterday with WBC 122 so no SBP and SAAG >2.5 c/w portal HTN with cx and cytology pending. No stools today per patient report. Rectal in ER reported as dark and heme positive. Ammonia 62 this am. Fhx non contibutory Allergies Allergy/AdvReac Type Severity Reaction Status Date / Time fentanyl Allergy Severe WENT Verified 08/23/20 12:10 CRAZY, HALLUCINATIONS, BIZARRE BEHAVIOR Home Medications Home Medications Medication Instructions Recorded Confirmed Type cyanocobalamin (vitamin B-12) 500 mcg PO QAM 08/14/20 08/23/20 History [Vitamin B-12] ferrous sulfate 325 mg PO QAM 08/14/20 08/23/20 History finasteride [Proscar] 5 mg PO QAM 08/14/20 08/23/20 History folic acid 1 mg PO QAM 08/14/20 08/23/20 History metformin 500 mg PO BID 08/14/20 08/23/20 History pantoprazole 40 mg PO QAM 08/14/20 08/23/20 History tamsulosin 0.4 mg PO QAM 08/14/20 08/23/20 History tiotropium bromide [Spiriva 2 puff INHALATION QAM 08/14/20 08/23/20 History Respimat] atorvastatin 20 mg PO DAILY 08/23/20 08/23/20 History budesonide-formoterol 2 puff INHALATION BID 08/23/20 08/23/20 History cyclobenzaprine 5 mg PO BID PRN 08/23/20 08/23/20 History furosemide 20 mg PO DAILY 08/23/20 08/23/20 History gabapentin 600 mg PO TID 08/23/20 08/23/20 History insulin aspart U-100 20 unit SUBCUT TIDM 08/23/20 08/23/20 History insulin glargine 60 unit SUBCUT HS 08/23/20 08/23/20 History magnesium oxide 420 mg PO DAILY 08/23/20 08/23/20 History meclizine 12.5 mg PO TID PRN 08/23/20 08/23/20 History melatonin 3 mg PO HS PRN 08/23/20 08/23/20 History multivitamin with minerals 1 tab PO DAILY 08/23/20 08/23/20 History [Multiple Vitamin-Minerals] Patient History Medical History CAD (coronary artery disease) CVA (cerebral vascular accident) Surgical History H/O heart artery stent H/O inguinal hernia repair History of cholecystectomy Social History Smoking Status: Current some day smoker Tobacco Type: Cigarettes Do You Dip or Chew Tobacco: No; Hx Alcohol Use: No Hx Substance Use: No Preferred Language: Citizen Of [place] [employer] Manager Required: No Beliefs That Will Affect Care: Yarsanism Yarsanism Beliefs: JAIN Current Living Situation: Personal Care Facility Current Living Situation Comment: ASSISTED LIVING Feels Safe at Home: Yes Safety Concerns: Feels Safe At This Time Assistive Devices: Glasses Review of Systems Review of Systems: All systems reviewed & are unremarkable except as noted in HPI & below Physical Exam Constitutional: WD/WN, vitals as above Eyes: PERRL, conjunctivae normal, anicteric sclerae Neck: normal visual inspection and trachea midline Respiratory: normal respiratory effort, lungs clear to auscultation Cardiovascular: RRR, no murmur, no edema Gastrointestinal (Abdomen): postive bowel sounds soft, mild guarding RLQ, no rebound Skin: warm and dry Neurologic: PERRL, EOMI, accommodation nl, no face palsy, no dysarthria Psychiatric: A+Ox3, euthymic affect Results & Data ([facility]) Vital Signs (Past 12 Hours) Vital Signs Temp Pulse Pulse Resp BP Pulse Ox 08/24/20 07:35 37.2 C 64 18 136/71 93 08/24/20 07:06 59 L 08/24/20 03:21 37.3 C 64 16 131/78 90 08/23/20 23:29 37.0 C 65 20 152/90 H 92 08/23/20 23:28 67 (1) Abdominal pain Abdominal location: generalized Qualified Code(s): R10.84 - Generalized abdominal pain
--- NOTE | 2020-08-24 12:19 | Hospitalist Progress Note ---
Date of Service August 24, 2020 Assessment & Plan (1) Abdominal pain: Unclear cause. GI considering ischemic colitis. Has been going on for at least 6 weeks. - Attempting to obtain records as he has been at [facility] & [place] both within the last 6 weeks. (2) Acute upper gastrointestinal bleeding: Reports melenic stools. However, given stable hgb and vital signs, acute GI bleed less likely than some sort of chronic issue. - Continue PPI gtt - GI consulted -> Plan for EGD today. Discussed with Dr. Estrada. Given variceal bleed seems quite unlikely, we will NOT do octreotide or ceftriaxone at this time. (3) Colitis: CT a/p on 08/23 showed colitis in the ascending colon, hepatic flexure and proximal transverse colon is suggestive of portal colopathy. - Concern by GI for C. diff -> pending - If negative, can consider Imodium. (4) Esophageal varices: Reportedly, though no firm outside records. - EGD today - Continue beta-klaudia for now - Will stop in case of variceal bleed given increased mortality. (5) Liver cirrhosis: Presumed due to hepatitic C. Has received 2 courses of treatment and is now cured per patient. - Await records. (6) Diabetes: A1c is 4.9% this admission. - Hold oral meds - Continue glargine 9 units SQ BID - Sliding scale insulin - Blood sugars generally ~100 today while NPO. Will continue to monitor. (7) Hypertension: BP is 170/80 today. - Continue beta-klaudia (8) BPH (benign prostatic hyperplasia): No LUTS at present. - Continue tamsulosin and finasteride (9) DVT prophylaxis: SCDs - Concern for bleeding; no heparin. Admission and Anticipated Discharge Date Admission Date: August 23, 2020 Subjective Continued pain in the RLQ, though improved compared to before his paracentesis. Reports no fevers/chills, chest pain, shortness of breath, abdominal pain, nausea, or vomiting. Physical Exam Constitutional: WD/WN, vitals as above Eyes: EOM intact bilaterally; no conjunctival abnormality ENMT: external ear and nose normal, oropharynx normal Neck: trachea midline, no thyromegaly normal visual inspection Respiratory: normal respiratory effort, lungs clear to auscultation no respiratory distress Cardiovascular: RRR, no murmur, no edema Gastrointestinal (Abdomen): Inspection/Auscultation: abdomen normal to inspection; abdomen not distended Musculoskeletal: no cyanosis or clubbing, extremities motor strength 5/5 Skin: no rashes, warm and dry Neurologic: moves all extremities and awake Psychiatric: Orientation: alert, oriented to person and cooperative Results & Data Results & Data ([facility]) Vital Signs (Past 12 Hours) Vital Signs Temp Pulse Pulse Resp BP Pulse Ox 08/24/20 11:19 36.5 C 56 L 18 168/78 H 96 08/24/20 07:35 37.2 C 64 18 136/71 93 08/24/20 07:06 59 L 08/24/20 03:21 37.3 C 64 16 131/78 90 PG Care Time/CCT Total # of Minutes Spent Total Time Spent with Patient: Total time spent is greater than 50% in coordination of care (as documented) at patient's floor/unit and/or counseling patient: Coding Level of Care Code 23891 Subseq Hosp Care Lvl 3 Diagnoses Abdominal pain R10.84 Abdominal location: generalized Acute upper gastrointestinal bleeding K92.2 Colitis K52.9 Esophageal varices I85.00 Esophageal varices bleeding: without bleeding Esophageal varices type: unspecified type Liver cirrhosis K74.60 Diabetes E11.9 Hypertension I10 BPH (benign prostatic hyperplasia) N40.0 DVT prophylaxis Z29.9 (1) Abdominal pain Abdominal location: generalized Qualified Code(s): R10.84 - Generalized abdominal pain (2) Esophageal varices Esophageal varices bleeding: without bleeding Esophageal varices type: unsp ecified type Qualified Code(s): I85.00 - Esophageal varices without bleeding
--- NOTE | 2020-08-24 15:00 | Anesthesiology Consultation ---
Date of Service August 24, 2020 Assessment & Plan (1) Encounter for pre-operative examination: Chart Review Chart Review: Acceptable Risk for Surgery Consults Requested none Proposed Anesthesia Risk / Benefits Reviewed With: PT / POA / Parent / Guardian, Accepts Plan and Informed Consent Obtained History Surgery Operation Date: 08/24/20 16:30 Proposed Procedures p Esophagogastroduodenoscopy Dr Estrada - Kolby Estrada Height/Weight Height: 6 ft Weight: 95.8 kg Allergies Allergy/AdvReac Type Severity Reaction Status Date / Time fentanyl Allergy Severe WENT Verified 08/24/20 15:31 CRAZY, HALLUCINATIONS, BIZARRE BEHAVIOR Medications Home Medications Medication Instructions Recorded Confirmed Last Taken cyanocobalamin (vitamin B-12) 500 mcg PO QAM 08/14/20 08/23/20 08/14/20 [Vitamin B-12] ferrous sulfate 325 mg PO QAM 08/14/20 08/23/20 08/14/20 finasteride [Proscar] 5 mg PO QAM 08/14/20 08/23/20 08/14/20 folic acid 1 mg PO QAM 08/14/20 08/23/20 08/14/20 metformin 500 mg PO BID 08/14/20 08/23/20 08/14/20 pantoprazole 40 mg PO QAM 08/14/20 08/23/20 08/14/20 tamsulosin 0.4 mg PO QAM 08/14/20 08/23/20 08/14/20 tiotropium bromide [Spiriva 2 puff INHALATION QAM 08/14/20 08/23/20 08/14/20 Respimat] atorvastatin 20 mg PO DAILY 08/23/20 08/23/20 Unknown budesonide-formoterol 2 puff INHALATION BID 08/23/20 08/23/20 Unknown cyclobenzaprine 5 mg PO BID PRN 08/23/20 08/23/20 Unknown furosemide 20 mg PO DAILY 08/23/20 08/23/20 Unknown gabapentin 600 mg PO TID 08/23/20 08/23/20 Unknown insulin aspart U-100 20 unit SUBCUT TIDM 08/23/20 08/23/20 Unknown insulin glargine 60 unit SUBCUT HS 08/23/20 08/23/20 Unknown magnesium oxide 420 mg PO DAILY 08/23/20 08/23/20 Unknown meclizine 12.5 mg PO TID PRN 08/23/20 08/23/20 Unknown melatonin 3 mg PO HS PRN 08/23/20 08/23/20 Unknown multivitamin with minerals 1 tab PO DAILY 08/23/20 08/23/20 Unknown [Multiple Vitamin-Minerals] Active Medications Generic Name Dose Route Start Last Admin Trade Name Freq PRN Reason Stop Dose Admin Atorvastatin Calcium 20 mg 08/24/20 09:00 08/24/20 08:36 Atorvastatin 20 Mg Tab PO 09/23/20 08:59 20 mg QAM ELGIN Administration Potassium Chloride/Sodium Chloride 20 meq in 1,000 mls @ 80 mls/hr 08/23/20 17:30 08/24/20 05:55 Normal Saline W/20 Meq Kcl IV 09/22/20 16:58 80 mls/hr .[id number] ELGIN Administration Pantoprazole Sodium 40 mg/ 100 mls @ 20 mls/hr 08/23/20 17:15 08/24/20 13:23 Dextrose IV 09/22/20 17:14 8 mg/hr Q5H ELGIN 20 mls/hr Administration 8 MG/HR Insulin Aspart 0 units 08/24/20 00:00 08/24/20 12:11 Insulin Aspart 100 Units/Ml 3 Ml Pen SC 09/23/20 00:00 Not Given Q6 ELGIN Insulin Glargine 9 units 08/23/20 21:00 08/24/20 08:50 Insulin Glargine Solostar 100 Units/Ml 3 Ml Pen SC 09/22/20 20:59 Not Given BID ELGIN Nadolol 40 mg 08/23/20 16:59 08/24/20 08:36 Nadolol 40 Mg Tab PO 09/22/20 16:58 40 mg QAM ELGIN Administration Past Medical History Medical History CAD (coronary artery disease) CVA (cerebral vascular accident) Diabetes Esophageal varices Hepatic encephalopathy history 2019 History of hepatitis C Hypertension Liver cirrhosis Exercise / Class Metabolic Activity IV < 2 Limit ADL/Bedbound Past Family History Family History Other Family history non-contributory Past Surgical History Surgical History (Reviewed 08/24/20 @ 14:59 by MARCELO Dillon H/O heart artery stent LAD stent - 2018 H/O inguinal hernia repair left side History of cholecystectomy Past Anesthesia History No Hx of Anesthesia Complications and No Family Hx of Anesthesia Complications History of PONV No Hx of PONV and No Hx of Motion Sickness Social History Smoking Status: Current some day smoker tobacco type: cigarettes Do You Dip or Chew Tobacco: No Hx Alcohol Use: No Hx Substance Use: No Physical Exam Vital Signs Last Vital Signs Temp 97.7 F 08/24/20 11:19 Pulse 56 L 08/24/20 11:19 Resp 18 08/24/20 11:19 BP 168/78 H 08/24/20 11:19 Pulse Ox 96 08/24/20 11:19 ENMT Mouth: + edentulous Thyromental Distance: > or= 3.5 Finger Breadths Mallampati Class: II Neck normal visual inspection Respiratory normal respiratory effort Auscultation: lungs clear to auscultation bilaterally Cardiovascular Rate/Rhythm: regular rate and regular rhythm Testing Laboratory Results 08/24/20 06:48 08/24/20 06:48 PT 12.2 Seconds (9.0-12.0) H 08/23/20 11:22 INR 1.2 (0.9-1.1) H 08/23/20 11:22 APTT 28.8 Seconds (21.0-31.0) 08/23/20 11:22 Hemoglobin A1c 4.9 % (4.5-5.6) 08/24/20 06:48 Urine Color Yellow 08/23/20 Unknown Urine Appearance Clear (Clear) 08/23/20 Unknown Urine pH 5.5 (4.5-7.5) 08/23/20 Unknown Ur Specific [place] 1.020 (1.000-1.030) 08/23/20 Unknown Urine Protein 2+ (Negative) H 08/23/20 Unknown Urine Glucose (UA) Negative (Negative) 08/23/20 Unknown Urine Ketones Negative (Negative) 08/23/20 Unknown Urine Nitrite Negative (Negative) 08/23/20 Unknown Ur Leukocyte Esterase Negative (Negative) 08/23/20 Unknown Urine WBC (Auto) 1-5 /hpf (0-5) 08/23/20 Unknown Urine RBC (Auto) 0-4 /hpf (0-4) 08/23/20 Unknown U Hyaline Cast (Auto) 1-5 /lpf (0-5) 08/23/20 Unknown U Epithel Cells (Auto) 0-5 /lpf (0-5) 08/23/20 Unknown Urine Bacteria (Auto) Negative (Negative) 08/23/20 Unknown 08/23/20 16:00 Gram Stain - Final Peritoneal Fluid Aerobic and Anaerobic Culture - Preliminary No growth to date. 08/24/20 08/24/20 12:12 05:54 POC Glucose 103 H 103 H Electrocardiogram Date: 08/23/20 Normal sinus rhythm, rate 76 bpm Normal ECG When compared with ECG of 14-AUG-2020 18:12, No significant change was found Confirmed by Juan Guerrero ([id number]) on 08/23/2020 11:56:35 AM
--- NOTE | 2020-08-24 15:13 | History & Physical Report ---
Date of Service August 24, 2020 Assessment & Plan (1) Heme positive stool: See consult from today. No changes. For heme pos stool and dark stools doing EGD today. Proc and risks explained which include but not limited to med reaction, bleeding. perforation, aspiration, and missed lesions. Admission and Anticipated Discharge Date Admission Date: August 23, 2020 History of Present Illness Primary Care Provider: Osmany Molina MD Allergies Allergy/AdvReac Type Severity Reaction Status Date / Time fentanyl Allergy Severe WENT Verified 08/24/20 15:31 CRAZY, HALLUCINATIONS, BIZARRE BEHAVIOR Home Medications Home Medications Medication Instructions Recorded Confirmed Type cyanocobalamin (vitamin B-12) 500 mcg PO QAM 08/14/20 08/23/20 History [Vitamin B-12] ferrous sulfate 325 mg PO QAM 08/14/20 08/23/20 History finasteride [Proscar] 5 mg PO QAM 08/14/20 08/23/20 History folic acid 1 mg PO QAM 08/14/20 08/23/20 History metformin 500 mg PO BID 08/14/20 08/23/20 History pantoprazole 40 mg PO QAM 08/14/20 08/23/20 History tamsulosin 0.4 mg PO QAM 08/14/20 08/23/20 History tiotropium bromide [Spiriva 2 puff INHALATION QAM 08/14/20 08/23/20 History Respimat] atorvastatin 20 mg PO DAILY 08/23/20 08/23/20 History budesonide-formoterol 2 puff INHALATION BID 08/23/20 08/23/20 History cyclobenzaprine 5 mg PO BID PRN 08/23/20 08/23/20 History furosemide 20 mg PO DAILY 08/23/20 08/23/20 History gabapentin 600 mg PO TID 08/23/20 08/23/20 History insulin aspart U-100 20 unit SUBCUT TIDM 08/23/20 08/23/20 History insulin glargine 60 unit SUBCUT HS 08/23/20 08/23/20 History magnesium oxide 420 mg PO DAILY 08/23/20 08/23/20 History meclizine 12.5 mg PO TID PRN 08/23/20 08/23/20 History melatonin 3 mg PO HS PRN 08/23/20 08/23/20 History multivitamin with minerals 1 tab PO DAILY 08/23/20 08/23/20 History [Multiple Vitamin-Minerals] Past Med/Surg History Medical History CAD (coronary artery disease) CVA (cerebral vascular accident) Diabetes Esophageal varices Hepatic encephalopathy history of - 2019 History of hepatitis C Hypertension Liver cirrhosis Surgical History H/O heart artery stent LAD stent - 2018 H/O inguinal hernia repair left side History of cholecystectomy Family History Other Family history non-contributory Social History Smoking Status: Current some day smoker Tobacco Type: Cigarettes Do You Dip or Chew Tobacco: No; Hx Alcohol Use: No Hx Substance Use: No Preferred Language: Liberian Communication Ability: Effective Faculty Head Required: No Beliefs That Will Affect Care: Sabianist Sabianist Beliefs: JAIN Current Living Situation: Personal Care Facility Current Living Situation Comment: ASSISTED LIVING Feels Safe at Home: Yes Safety Concerns: Feels Safe At This Time Assistive Devices: Glasses Results & Data ([facility]) Vital Signs (Past 12 Hours) Vital Signs Temp Pulse Pulse Resp BP Pulse Ox 08/24/20 11:19 36.5 C 56 L 18 168/78 H 96 08/24/20 07:35 37.2 C 64 18 136/71 93 08/24/20 07:06 59 L 08/24/20 03:21 37.3 C 64 16 131/78 90 Code Status & VTE Plan VTE Prophylaxis Plan VTE Prophylaxis will be ordered: Yes
[2020-08-24] MEDS ORDERED: ONDANSETRON INJ 2 MG/ML 2 ML VIAL ONE (15:45)
[2020-08-24] MEDS ORDERED: PROPOFOL IV EMULSION 10 MG/ML 20 ML VIAL IV ONE (15:45)
[2020-08-24] MEDS ORDERED: GLYCOPYRROLATE 0.2 MG/ML VIAL ONE (15:45)
[2020-08-24] MEDS ORDERED: LIDOCAINE HCL 2% 2 ML VIAL/AMP(20MG/ML) INFIL ONE (15:45)
--- NOTE | 2020-08-24 16:02 | GI REPORT ---
Patient Name: Alfredo Willis Procedure Date: 08/24/2020 3:41 PM Date of : 1950 Admit Type: Inpatient Age: 70 Gender: Male Attending MD: Kolby Estrada MD Procedure: Upper GI endoscopy Providers: Kolby Estrada MD Referring MD: Xiang Uriarte Md Indications: Heme positive stool, Melena Medicines: Monitored Anesthesia Care Complications: No immediate complications. Estimated blood loss: None. Estimated Blood Loss: Estimated blood loss: none. Procedure: Pre-Anesthesia Assessment: - The risks and benefits of the procedure and the sedation options and risks were discussed with the patient. All questions were answered and informed consent was obtained. - Patient identification and proposed procedure were verified prior to the procedure by the physician, the nurse and the outbound sales specialist. The procedure was verified in the procedure room. After obtaining informed consent, the endoscope was passed under direct vision. Throughout the procedure, the patient's blood pressure, pulse, and oxygen saturations were monitored continuously. The Endoscope was introduced through the mouth, and advanced to the second part of duodenum. The upper GI endoscopy was accomplished without difficulty. The patient tolerated the procedure well. Procedure and risks explained to patient which include but not limited to medication reaction, bleeding, perforation, aspiration , and missed lesions. Judicious gas insufflation was used and gas removal done on the way out. The lumen was always visualized when advancing the scope. Prep was good. Washes and suctioning used as needed to get good visualization of the mucosa. Retroflexion to look at the fundus and cardia of the stomach and GE junction was done. Findings: Grade III varices were found in the lower third of the esophagus. Severe portal hypertensive gastropathy was found in the entire examined stomach. The examined duodenum was normal. The exam was otherwise without abnormality. Impression: - Grade III esophageal varices. - Portal hypertensive gastropathy. - Normal examined duodenum. - No specimens collected. Recommendation: - Return patient to [facility] for ongoing care. Kolby Estrada M.D. Kolby Estrada MD 08/24/2020 4:01:37 PM This report has been signed electronically. Note Initiated On: 08/24/2020 3:41 PM Number of Addenda: 0 I attest to the content of the Intraoperative Record and orders documented therein, exceptions below {[id number]}
--- NOTE | 2020-08-24 16:03 | Post Operative Brief Note ---
Immediate Post Op Note v1 Date of Surgery August 24, 2020 Pre & Post Diagnosis Operation Date: 08/24/20 16:30 Pre-Op Diagnosis: MELENA, HEME POSITIVE STOOL I identified the patient and participated in the time-out.: Yes Procedure Operation Date: 08/24/20 16:30 <No data on this case meets the specified criteria> Pt with esophageal varices and portal hypertensive gastropathy. No fresh nor old blood noted. No gross hematemesis reported so suspect heme pos stool from oozing from portal gastropathy and not varices. Continue Fe, recommend continue Nadalol for prevention of bleeding. Clear liquid diet as tolerated. Surgeon Kolby Estrada Communications Scientist see full report Estimated Blood Loss 0 Findings See Below
--- NOTE | 2020-08-24 16:18 | Anesthesiology Progress Note ---
Date of Service August 24, 2020 Anesthesia Post Procedure Vital Signs Vital Signs: Temp Pulse Pulse Resp BP Pulse Ox 08/24/20 16:12 54 L 18 136/78 94 08/24/20 15:57 51 L 16 87/43 L 92 08/24/20 15:36 98.2 F 56 L 18 178/94 H 95 08/24/20 11:19 97.7 F 56 L 18 168/78 H 96 08/24/20 07:35 99.0 F 64 18 136/71 93 08/24/20 07:06 59 L 08/24/20 03:21 99.1 F 64 16 131/78 90 08/23/20 23:29 98.6 F 65 20 152/90 H 92 08/23/20 23:28 67 08/23/20 20:08 98.4 F 70 18 154/82 H 91 08/23/20 17:36 71 Pain Intensity Bilateral Abdomen: Pain Intensity: 6 Transfer of Care Handoff Completed per policy Notes Mental Status: alert / awake / arousable and participated in evaluation Patient Amnestic to Procedure: Yes Nausea / Vomiting: adequately controlled Pain: adequately controlled Airway Patency, RR, SpO2: stable & adequate BP & HR: stable & adequate Hydration State: stable & adequate Anesthetic Complications: no major complications apparent and Pt Satisfied with anesthetic care
[2020-08-24] MEDS: PANTOprazole 40 MG TAB PO SCH (21:09)
[2020-08-25 07:46] LABS: Albumin Level 2.7 gm/dl (3.4-5.0); BUN Creatinine Ratio 8.2 (10-20); Calcium 8.8 mg/dl (8.5-10.1); Creatinine Clr Calc Pharmacy 66.4 ml/min; Est GFR (African American) 67.2; Potassium 3.8 mmol/L (3.5-5.1)
[2020-08-25 07:54] LABS: Albumin Globulin Ratio 0.7 (0.9-2); Bilirubin,Total 3.1 mg/dl (0.2-1); Globulin 4.1 gm/dl (2.5-4.0); Total Protein 6.8 gm/dl (6.4-8.2)
[2020-08-25] MEDS: nadoloL 40 MG TAB PO SCH (08:34)
[2020-08-25] MEDS: ATORVASTATIN 20 MG TAB PO SCH (08:35)
[2020-08-25] MEDS: FINASTERIDE 5 MG TAB PO SCH (08:35)
[2020-08-25] MEDS: PANTOprazole 40 MG TAB PO SCH ×2 (08:35→20:02)
[2020-08-25] MEDS: TAMSULOSIN HCL 0.4 MG CAP PO SCH (08:35)
[2020-08-25] MEDS: INSULIN GLARGINE SOLOSTAR 100 UNITS/ML 3 ML PEN SC SCH ×2 (08:36→20:49)
[2020-08-25] MEDS: INSULIN ASPART 100 UNITS/ML 3 ML PEN SC SCH ×4 (08:39→20:49)
[2020-08-25 11:26] LABS: Hematocrit (blood only) 37.8 % (42-52); Hemoglobin 12.6 g/dL (14.0-18.0); Mean Corpuscular Hemoglobin 30.7 pg (25-34); Mean Corpuscular Volume 92.2 fL (80-100); RDW Coefficient of Variation 16.7 % (11.5-14.5); RDW Standard Deviation 56.6 fL (36.4-46.3); White Blood Count 5.67 K/uL (4.8-10.8)
[2020-08-25 11:29] LABS: Mean Corpuscular Hgb Conc 33.3 g/dL (32-36); Platelet Count 84 K/uL (130-400)
[2020-08-25 11:50] LABS: Basophils # (auto) 0.05 K/uL (0-0.2); Basophils % (auto) 0.9 %; Eosinophils # (auto) 1.19 K/uL (0-0.5); Immature Granulocytes # (auto) 0.01 K/uL (0.00-0.02); Immature Granulocytes % (auto) 0.2 %; Lymphocytes # (auto) 0.86 K/uL (1.2-3.4); Lymphocytes % (auto) 15.2 %; Monocytes # (auto) 0.53 K/uL (0.11-0.59); Monocytes % (auto) 9.3 %; Neutrophils # (auto) 3.03 K/uL (1.4-6.5); Neutrophils % (auto) 53.4 %
--- NOTE | 2020-08-25 13:15 | Gastroenterology Progress Note ---
Date of Service August 25, 2020 Assessment & Plan (1) Heme positive stool: black, heme postive stools---he is on Fe which can contribute to dark stools and has significant portal hypertensive gastropathy RLQ pain--improved with supportive care, etiology unclear esophageal varices--with hx of bleeding in past and banding in past, I recommend outpt variceal eradication, continue nadalol to reduce portal pressure portal hypertensive gastropathy--continue Nadalol. Thickened TI and colon on CT as above--will see in records if/when he had colonsocopy Diarrhea--confused as to whether this has been an issue or not and when. elevated ammonia---ammonia better at 44 with no treatment Ascites--no evidence of SBP on cell count, Corynbacterium in preliminay culture may be contaminant cirrhosis--possibly from hep C but would like to review outside records. The past history is difficult to sort out as it seems to vary day to day when I question him. I really need to outside records to decide on how to proceed. I do now know whether to just give him laxative to see if obstipation as an issue versus doing CTA to look for ischemia vs other testing depending on what they found on workup at [facility]. Admission and Anticipated Discharge Date Admission Date: August 23, 2020 Subjective cc abd pain improved HPI Pt states abd pain overall much improved vs admission. No outside records received and I asked wardrobe supervisor to look into that and expedite if possible Pt states was asking me about frequent diarrhea on the one hand but when asked when last BM was he states except for few small ones it has been 2 weeks. He tells me today he thinks he had bleeding from varices in the past and had banding done before. Review of Systems Respiratory: no dyspnea Cardiovascular: no chest pain Physical Exam Respiratory: normal respiratory effort, lungs clear to auscultation Cardiovascular: RRR, no obvious murmur Gastrointestinal (Abdomen): pos bs, soft, no guarding nor rebound Results & Data ([facility]) Vital Signs (Past 12 Hours) Vital Signs Temp Pulse Resp BP Pulse Ox 08/25/20 11:07 37.0 C 55 L 18 158/91 H 94 08/25/20 07:42 36.7 C 58 L 18 162/79 H 93 08/25/20 04:05 36.6 C 54 L 18 135/96 94
--- NOTE | 2020-08-25 23:09 | Hospitalist Progress Note ---
Date of Service August 25, 2020 Assessment & Plan (1) Abdominal pain: Unclear cause. GI considering ischemic colitis. Has been going on for at least 6 weeks. - Attempting to obtain records as he has been at [facility] & [place] both within the last 6 weeks. (2) Acute upper gastrointestinal bleeding: Reports melenic stools. However, given stable hgb and vital signs, acute GI bleed less likely than some sort of chronic issue. - Continue PPI gtt - GI consulted -> -with hx of bleeding in past and banding in past, I recommend outpt variceal eradication, continue nadalol to reduce portal pressure (3) Colitis: CT a/p on 08/23 showed colitis in the ascending colon, hepatic flexure and proximal transverse colon is suggestive of portal colopathy. - Concern by GI for C. diff -> negative - (4) Esophageal varices: Reportedly, though no firm outside records. - EGD today - Continue beta-klaudia for now - Will stop in case of variceal bleed given increased mortality. (5) Liver cirrhosis: Presumed due to hepatitic C. Has received 2 courses of treatment and is now cured per patient. (6) Diabetes: A1c is 4.9% this admission. - Hold oral meds - Continue glargine 9 units SQ BID - Sliding scale insulin - Blood sugars generally ~100 today while NPO. Will continue to monitor. (7) Hypertension: BP is 170/80 today. - Continue beta-klaudia (8) BPH (benign prostatic hyperplasia): No LUTS at present. - Continue tamsulosin and finasteride (9) DVT prophylaxis: SCDs - Concern for bleeding; no heparin. Admission and Anticipated Discharge Date Admission Date: August 23, 2020 Subjective Patient is resting, he has no new complaints. Review of Systems Review of Systems: All systems reviewed & are unremarkable except as noted in HPI & below Physical Exam Physical Exam: General: A&Ox3. NAD. Cooperative. HEENT: Atraumatic, normocephalic. Pupils equal and reactive to light accommo dation. Cataño acuity grossly intact, hearing grossly intact. Pulm: CTAB A&P. -wheezes, -rales, -rhonchi. Symmetrical chest rise. No increase work of breathing. No respiratory distress. Cardiac: RRR, -mrg. Radial pulses intact and symmetrical. Abdominal: Mildly distended, nontender to palpation. No involuntary guarding. Minimal left lower quadrant tenderness. Balfour dependent dullness to perc ussion. Midline scar, post cholecystectomy scar present. Bowel sounds intact. Extremities: PT pulse intact bilaterally, trace ankle edema bilaterally. Results & Data Results & Data ([facility]) Vital Signs (Past 12 Hours) Vital Signs Temp Pulse Resp BP Pulse Ox 08/25/20 19:00 36.9 C 54 L 20 173/83 H 94 08/25/20 14:45 36.3 C L 57 L 18 170/93 H 94 PG Care Time/CCT Total # of Minutes Spent Total Time Spent with Patient: Total time spent is greater than 50% in coordination of care (as documented) at patient's floor/unit and/or counseling patient: Coding Level of Care Code 85351 Subseq Hosp Care Lvl 3 Diagnoses Abdominal pain R10.84 Abdominal location: generalized Acute upper gastrointestinal bleeding K92.2 Colitis K52.9 Esophageal varices I85.00 Esophageal varices bleeding: without bleeding Esophageal varices type: unspecified type Liver cirrhosis K74.60 Diabetes E11.9 Hypertension I10 BPH (benign prostatic hyperplasia) N40.0 DVT prophylaxis Z29.9 Time Spent (min) 35 (1) Esophageal varices Esophageal varices bleeding: without bleeding Esophageal varices type: un specified type Qualified Code(s): I85.00 - Esophageal varices without bleeding (2) Abdominal pain Abdominal location: generalized Qualified Code(s): R10.84 - Generalized abdominal pain
[2020-08-26 06:29] LABS: Hematocrit (blood only) 35.6 % (42-52); Hemoglobin 12.3 g/dL (14.0-18.0); Mean Corpuscular Hemoglobin 31.5 pg (25-34); Mean Corpuscular Hgb Conc 34.6 g/dL (32-36); Mean Corpuscular Volume 91.3 fL (80-100); RDW Coefficient of Variation 16.5 % (11.5-14.5); RDW Standard Deviation 54.4 fL (36.4-46.3); White Blood Count 5.38 K/uL (4.8-10.8)
[2020-08-26 06:33] LABS: Mean Platelet Volume 11.5 fL (7.4-10.4); Platelet Count 82 K/uL (130-400)
[2020-08-26 06:57] LABS: Basophils # (auto) 0.05 K/uL (0-0.2); Basophils % (auto) 0.9 %; Eosinophils # (auto) 1.23 K/uL (0-0.5); Eosinophils % (auto) 22.9 %; Immature Granulocytes # (auto) 0.01 K/uL (0.00-0.02); Immature Granulocytes % (auto) 0.2 %; Lymphocytes # (auto) 1.05 K/uL (1.2-3.4); Lymphocytes % (auto) 19.5 %; Monocytes % (auto) 11.2 %; Neutrophils # (auto) 2.44 K/uL (1.4-6.5); Neutrophils % (auto) 45.3 %
[2020-08-26 07:09] LABS: Albumin Level 2.7 gm/dl (3.4-5.0); Calcium 8.5 mg/dl (8.5-10.1); Creatinine Clr Calc Pharmacy 65.3 ml/min; Est GFR (African American) 65.9; Est GFR (Non-African American) 56.9; Potassium 3.7 mmol/L (3.5-5.1)
[2020-08-26 07:12] LABS: Albumin Globulin Ratio 0.7 (0.9-2); Bilirubin,Total 2.7 mg/dl (0.2-1); Total Protein 6.7 gm/dl (6.4-8.2)
[2020-08-26] MEDS: INSULIN ASPART 100 UNITS/ML 3 ML PEN SC SCH ×2 (08:21→12:08)
[2020-08-26] MEDS: ATORVASTATIN 20 MG TAB PO SCH (08:22)
[2020-08-26] MEDS: PANTOprazole 40 MG TAB PO SCH (08:22)
[2020-08-26] MEDS: nadoloL 40 MG TAB PO SCH (08:22)
[2020-08-26] MEDS: TAMSULOSIN HCL 0.4 MG CAP PO SCH (08:23)
[2020-08-26] MEDS: FINASTERIDE 5 MG TAB PO SCH (08:23)
[2020-08-26] MEDS: INSULIN GLARGINE SOLOSTAR 100 UNITS/ML 3 ML PEN SC SCH (08:23)
[2020-08-26] MEDS ORDERED: LACTULOSE SYRUP 30 GM/45 ML UDP PO SCH (09:00)
[2020-08-28] MEDS ORDERED: INFLUENZA VACCINE HIGH DOSE 65+ 0.5 ML SYR IM ONE (09:00)
[2020-08-28] MEDS ORDERED: INFLUENZA ADMINISTRATION CHARGE ONE (17:15)
--- NOTE | 2020-09-03 11:40 | Discharge Summary ---
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 He reports that he had been experiencing hand tremors/shakes and confusion which caused him to be admitted to the hospital and treated for hepatic encephalopathy. At that time he developed right lower quadrant pain which continued through admission and was present after discharge. His pain gradually increase over 24 hours once he was discharged home after approximately a week or 2 in the hospital and he called EMS who transported him to [facility]. At that time he reports that imaging was done and he was told he had a softball sized small bowel obstruction. He was treated conservatively with oral laxatives, rectal laxatives, and n.p.o. status and gradually got better. He reports his pain improved to a 2/10 in intensity but never completely went away. He was discharged to [facility] where he felt okay before the pain started come back and he presented by EMS to [facility] on 08/14. At that time CT scan did not show any small bowel obstruction, and he was discharged home. He re-presents with worsening abdominal pain and is found to have a portal vein thrombosis. Alfredo endorses his pain is in the right lower quadrant, with some radiation to the right upper quadrant. It fluctuates from a 2 out of 10 to excruciating 8/10 "only not a 10 because it is not as bad as kidney stones ". He has had soft non-liquid bowel movements which are black. He takes iron supplements. His pain does not radiate over to the left side. Movement and deep breaths causes pain to worsen. His right lower quadrant is extremely sensitive to the touch. He does not notice any significant change with meals. He reports a history of congenital esophagus surgery and a cholecystostomy. Prior small bowel obstruction as noted above. Medical history: Patient is a very poor historian of his past medical history. He reports that his most accurate records are from [facility] and Dr. Rebecca Aguila cardiology. His prior PCP is [facility], but he reports he does not follow-up with them and has been frustrated with his care in the past. Otherwise endorses medical history as noted above. Surgical history: Reviewed Medications: Patient is a poor historian is not able to name his meds. Is pending from outpatient providers. Allergies: Reports confusion to fentanyl Social: Currently living at [facility] in [place]. 60-year tobacco history, currently smokes a few cigarettes per day. Denies recent alcohol use, minimal past use. Occasional recreational marijuana use, none in 6 years. CODE STATUS: Conditional code. No compressions. Okay with trial of intubation, medications, and shock. Discussed and confirmed with patient at bedside. Principal Diagnosis abdominal pain Discharge Exam General: A&Ox3. NAD. Cooperative. HEENT: Atraumatic, normocephalic. Pupils equal and reactive to light accommodation. Isabel acuity grossly intact, hearing grossly intact. Pulm: CTAB A&P. -wheezes, -rales, -rhonchi. Symmetrical chest rise. No increase work of breathing. No respiratory distress. Cardiac: RRR, -mrg. Radial pulses intact and symmetrical. Abdominal: Mildly distended, nontender to palpation. No involuntary guarding. Minimal left lower quadrant tenderness. [place] dependent dullness to percussion. Midline scar, post cholecystectomy scar present. Bowel sounds intact. Extremities: PT pulse intact bilaterally, trace ankle edema bilaterally. Discharge Data Allergies Allergy/AdvReac Type Severity Reaction Status Date / Time fentanyl Allergy Severe WENT Verified 08/24/20 15:35 CRAZY, HALLUCINATIONS, BIZARRE BEHAVIOR Consultations 08/23/20 13:11 ED Decision to Admit Stat 08/23/20 16:59 Consult Gastroenterology Routine Procedures Performed Operation Date: 08/24/20 16:30 Actual Procedures p Esophagogastroduodenoscopy - Kolby Estrada Ordered Studies 08/23/20 11:10 CT abd pelvis IV con only Stat 08/23/20 14:29 US paracentesis abd w/image Stat Hospital Course (1) Abdominal pain: Unclear cause. GI considering ischemic colitis. Has been going on for at least 6 weeks. - Attempting to obtain records as he has been at [facility] & [facility] both within the last 6 weeks. On day of discharge, patient refused further workup. Patient was able to show understanding of leaving without further workup. Cause of pain was not clearly defined as workup was not completed. Patient states he is feeling better and will follow up with his PCP. (2) Acute upper gastrointestinal bleeding: Reports melenic stools. However, given stable hgb and vital signs, acute GI bleed less likely than some sort of chronic issue. - GI consulted -> -with hx of bleeding in past and banding in past, I recommend outpt variceal eradication, continue nadalol to reduce portal pressure. Will discharge on propanolol due to insurance coverage, (3) Colitis: CT a/p on 08/23 showed colitis in the ascending colon, hepatic flexure and proximal transverse colon is suggestive of portal colopathy. - Concern by GI for C. diff -> negative - (4) Esophageal varices: Reportedly, though no firm outside records. - EGD today - Continue beta-klaudia for now - Will stop in case of variceal bleed given increased mortality. (5) Liver cirrhosis: Presumed due to hepatitic C. Has received 2 courses of treatment and is now cured per patient. (6) Diabetes: A1c is 4.9% this admission. - Hold oral meds - Continue glargine 9 units SQ BID - Sliding scale insulin - Blood sugars generally ~100 today while NPO. Will continue to monitor. (7) Hypertension: BP is 170/80 today. - Continue beta-klaudia (8) BPH (benign prostatic hyperplasia): No LUTS at present. - Continue tamsulosin and finasteride (9) DVT prophylaxis: SCDs - Concern for bleeding; no heparin. Total Time Total Time Spent Total Time Spent (In Minutes): 32 Total Time Includes: Examination of the Patient, Discharge Planning and Medication Reconciliation Discharge Plan Discharge Items Patient Disposition: Home - Self-Care Reason For Visit: ABD PAIN Discharge Diagnosis: Abdominal pain Activity: Resume your previous activity Non-emergency contact: Primary Care Provider Call non-emergency contact if: you have any medication questions Follow-up/Referrals: Osmany Molina MD [Primary Care Provider] - Diet: Carb Consistent or DM2 Addtl Attending Provider Instructions: You have been hospitalized for an acute medical problem. During your stay at [facility], we have made an effort to correct the problem that brought you to the hospital while keeping you as comfortable as possible. Medications were used to bring your condition under control and your discharge instructions will include directions for any medications you should take after leaving the hospital. Please make sure you see your Primary Care Provider as part of your follow up plan. Recommend you followup with ou Primary care doctor and horticultural therapist as soon as possible. Pending Studies at Discharge: No Stand-Alone Forms: [facility] [employer], Smoking Cessation Medications and DC Order Prescriptions: New propranolol 20 mg tablet 20 mg PO BID Qty: 60 RF: 0 Continued metformin 500 mg Tablet 500 mg PO BID RF: 0 cyanocobalamin (vitamin B-12) [Vitamin B-12] 500 mcg Tablet 500 mcg PO QAM RF: 0 tamsulosin 0.4 mg Capsule 0.4 mg PO QAM RF: 0 ferrous sulfate 325 mg (65 mg iron) Tablet 325 mg PO QAM RF: 0 folic acid 1 mg Tablet 1 mg PO QAM RF: 0 finasteride [Proscar] 5 mg Tablet 5 mg PO QAM RF: 0 Spiriva Respimat 1.25 mcg/actuation Mist 2 puff INHALATION QAM RF: 0 atorvastatin 40 mg Tablet 20 mg PO DAILY RF: 0 budesonide-formoterol 160-4.5 mcg/actuation Hfa Aerosol Inhaler 2 puff INHALATION BID RF: 0 cyclobenzaprine 10 mg Tablet 5 mg PO BID PRN (Reason: Spasms) RF: 0 furosemide 20 mg Tablet 20 mg PO DAILY RF: 0 gabapentin 300 mg Capsule 600 mg PO TID RF: 0 insulin aspart U-100 100 unit/mL (3 mL) Insulin Pen 20 unit SUBCUT TIDM RF: 0 insulin glargine 100 unit/mL (3 mL) Insulin Pen 60 unit SUBCUT HS RF: 0 magnesium oxide 420 mg Tablet 420 mg PO DAILY RF: 0 meclizine 12.5 mg Tablet 12.5 mg PO TID PRN (Reason: Dizziness Or Vertigo) RF: 0 melatonin 3 mg Tablet 3 mg PO HS PRN (Reason: Insomnia) RF: 0 multivitamin with minerals [Multiple Vitamin-Minerals] Tablet 1 tab PO DAILY RF: 0 Changed pantoprazole 40 mg Tablet,Delayed Release (Dr/Ec) 40 mg PO BID Qty: 0 RF: 0 Discharge Orders: Discharge Order (Routine); Ordered 08/26/20 Ordered By: Gaudencio Rice Admission Data Admit Date/Time: 08/23/20 14:57 Attending Provider: Gaudencio Rice Admit Provider: Ham Mallory Primary Care Provider: Osmany Molina Other Providers: Kolby Estrada ; Xiang Uriarte Other Interventions: Discharge Summary Assessment (RN) Last Done: 08/26/20 12:15 Coding Level of Care Code D/C Day Management >30 mins Diagnoses Abdominal pain R10.84 Abdominal location: generalized Acute upper gastrointestinal bleeding K92.2 Colitis K52.9 Esophageal varices I85.00 Esophageal varices bleeding: without bleeding Esophageal varices type: unspecified type Liver cirrhosis K74.60 Diabetes E11.9 Hypertension I10 BPH (benign prostatic hyperplasia) N40.0 DVT prophylaxis Z29.9
== END 2020-08-26 12:35 | disposition home or self-care (01) | DRG 377 ==
LOC: ED 10:49 → SUATTDRO 14:57 → 2N 14:57

== ENCOUNTER 2021-01-06 10:03 | Inpatient (IN) ==
[2021-01-06] MEDS ORDERED: cefTRIAXone SODIUM 1,000 MG/50 ML BAG IV STA ×2 (10:18→11:39)
[2021-01-06] MEDS ORDERED: SODIUM CHLORIDE 0.9% 250 ML IV PRN (10:20)
[2021-01-06] MEDS ORDERED: SODIUM CHLORIDE 0.9% 500 ML IV SCH (10:30)
[2021-01-06 10:31] LABS: Hematocrit (blood only) 18.2 % (42-52); Mean Corpuscular Hemoglobin 30.6 pg (25-34); Mean Corpuscular Volume 92.9 fL (80-100); Mean Platelet Volume 10.8 fL (7.4-10.4); Platelet Count 195 K/uL (130-400); RDW Coefficient of Variation 19.3 % (11.5-14.5); RDW Standard Deviation 64.6 fL (36.4-46.3); Red Blood Count 1.96 M/uL (4.7-6.1); White Blood Count 13.59 K/uL (4.8-10.8)
--- NOTE | 2021-01-06 10:32 | Emergency Department Note ---
Impression & Plan Acute lower GI bleeding, Acute hypotension, Anemia, Abdominal ascites ED Provider Note NAME: EARNEST POOL AGE: 70 SEX: M : 1950 ARRIVES VIA: Ambulance INFORMANT: Patient, EMS personnel ED PROVIDER(S): Jonh Karimi DO CHIEF COMPLAINT: Lower GI bleeding HPI: The patient is a 70-year-old male who presented to the emergency department for lower GI bleeding. The patient has a history of hepatitis C as well as esophageal varices. He was seen by gastroenterology 10 days ago. He had an upper and lower endoscopy. At that time his esophageal varices were stable and not bleeding. He did have a sessile polyp which was 5 mm removed from his a sending colon using a cold snare. The patient states he began having rectal b leeding 3 days ago. The patient states symptoms have been slowly worsening especially over the last 24 hours. He denies having any abdominal pain. He has no nausea or vomiting. He denies having any chest pain but he does complain of significant weakness and dyspnea on exertion. The patient has had similar symptoms in the past but is also had bleeding from his esophageal varices. He has a history of portal vein thrombosis but states he is not currently taking any anticoagulation. Otherwise he has been compliant with all of his outpatient medication regimen. ROS: See above HPI for pertinent positives & negatives. A total of 10 systems reviewed and were otherwise negative. PAST MEDICAL HISTORY: See Below PAST SURGICAL HISTORY: See Below FAMILY HISTORY: See Below SOCIAL HISTORY: See Below HOME MEDICATIONS: See Below ALLERGIES: See Below VITALS: See Below PHYSICAL EXAMINATION: GENERAL: The patient is awake and alert. He is somewhat anxious appearing. EYES: The conjunctivae are pale. The pupils are round and reactive. EARS, NOSE, MOUTH AND THROAT: The nose is without any evidence of any deformity. NECK: The neck is nontender and supple. RESPIRATORY: Diminished breath sounds are noted at both bases. There was no tachypnea or conversational dyspnea. CARDIOVASCULAR: Regular rate and rhythm noted there no murmurs rubs or gallops normal S1 normal S2. GASTROINTESTINAL: The abdomen is very distended. There is a fluid wave noted to palpation. There is no specific tenderness guarding rigidity. Gross blood was noted per rectum. MUSCULOSKELETAL/EXTREMITIES: There is no evidence of gross deformity full range of motion is noted in the hips and shoulders. SKIN: Pedal edema was noted bilaterally. Skin was cool and dry. NEUROLOGIC: Patient is awake alert and oriented x3. MEDICAL DECISION MAKING: The patient is a 70-year-old male who presented to the emergency department for lower GI bleeding. The patient does have a history of esophageal varices cirrhosis and portal hypertension. He also had a polyp removed from his ascending colon 10 days ago. The patient's bleeding started 3 days ago. His symptoms became much worse over the last 24 hours. He presented to the emergency department with hypotension and anemia. The patient was transfused packed red blood cells as well as fresh frozen plasma in the emergency department. I discussed the patient's laboratory and radiographic studies with him. Further resuscitation was done using normal saline solution. The patient had a central line placed in his left femoral vein for continued resuscitation. He did respond well to blood products and crystalloid and did not immediately require pressors. He was also given IV antibiotics and IV proton pump inhibitors. I discussed the patient's condition with the covering panel cutter for the patient's primary group. I also discussed this case with the [facility] hospitalist. The patient was evaluated in room B1 by the hospitalist group. The patient was doing much better on subsequent reevaluation. Triage Nursing notes reviewed. Prior medical records reviewed Vital Signs: reviewed and remarkable for hypotension Differential diagnosis: Diverticulosis, AVM, coagulopathy, colitis, inflammatory bowel disease, malignancy, Mayh-Rojas tear, esophagitis, peptic ulcer disease, variceal bleed, gastritis, epistaxis, fissure, hemorrhoids, as well as other pathologies. ER treatment provided: See below Diagnostics interpreted by me: ECG: EKG was obtained in the emergency department. My interpretation is sinus rhythm at 67 bpm. Low voltage was noted throughout. Diffuse ST segment depressions were noted throughout. This was compared to a tracing from November 142019. No significant changes were noted. Cardiac Monitoring: An order was placed for continuous cardiac monitoring. The monitor shows a rate of 72 bpm with sinus rhythm. Laboratory studies: As stated above and show below. Imaging studies: See below Consultation(s): 1030: I discussed this case with Dr. Estrada who is covering for gastroenterology. He does recommend an NG tube be placed to ensure this is not variceal bleeding. 1115: I discussed this case with Dr. Miller who is on-call for the [facility] hospitalist group. ED COURSE: Procedures: Femoral Central Venous Catheter Indication: Acute GI bleeding Catheter Type: Triple-lumen Location: Left femoral vein Verbal consent was obtained after the risks and benefits were explained, including but not limited to intra-abdominal injury, vessel injury, bleeding, scarring, infection, pain, and bone/joint/nerve damage. At this time, the risks of the procedure are less than the risks of NOT performing the procedure. A time out was taken and the correct patient and site identified. The patient was placed in the supine position and the skin was prepped in the standard fashion with chlorhexidine and full sterile drapes applied. The proper landmarks were identified with ultrasound, anesthetized with 1% lidocaine without epinephrine, and the needle was inserted through the skin in the standard fashion. The needle was carefully advanced into blood vessel lumen with ultrasound guidance. The guidewire was placed uneventfully. The vessel is dilated and the catheter was placed. It was sutured into position. There was good blood return from all ports. The patient tolerated the procedure well and there were no complications. PDMP:reviewed and no issues Critical Care: I have personally spent greater than 45 minutes of critical care time in the direct management of this patient. This includes bedside care, interpretation of diagnostic studies, and testing, discussion with consultants, patient, and family members, and other required patient management activities. This 45 minutes is in excess of all separately billable procedures. Past Med/Surg History Medical History (Updated 01/06/21 @ 12:56 by Jonh Karimi DO) Aortic aneurysm CAD (coronary artery disease) Follows with [facility] Chronic pain COPD (chronic obstructive pulmonary disease) Crohn's disease Crushing injury of chest 1970s Depression DM type 2 (diabetes mellitus, type 2) NIDDM Esophageal varices with banding x 3 (most recent approx 1 year ago) Hepatic encephalopathy history of - 2019 History of CVA (cerebrovascular accident) approx 6 years ago; no residual History of hepatitis C History of nephrolithiasis History of prostate cancer dx 1 year ago; radiation History of subdural hematoma HTN (hypertension) Hyperlipemia Hypertension Malignant neoplasm of prostate Non-alcoholic cirrhosis Peripheral neuropathy Poor historian history obtained from staff member at [facility] and pt Tremor Surgical History H/O heart artery stent LAD stent - 2018 H/O inguinal hernia repair left side History of aortic aneurysm repair History of cardiac cath 2018 [facility] History of cholecystectomy History of cystoscopy History of esophageal surgery as an infant History of facial surgery as a child following injury History of hernia repair multiple Family History Other Family history non-contributory Social History Smoking Status: Unknown if ever smoked Tobacco Type: Cigarettes Hx Alcohol Use: No Hx Substance Use: No Preferred Language: Kiswahili Communication Ability: Effective Lawn Care Specialist Required: No Beliefs That Will Affect Care: Sikhism Sikhism Beliefs: GNOSTICIST Current Living Situation: Personal Care Facility Current Living Situation Comment: ASSISTED LIVING Feels Safe at Home: Yes Assistive Devices: Cane and Glasses Allergies Allergies Allergy/AdvReac Type Severity Reaction Status Date / Time fentanyl Allergy Severe WENT Verified 01/06/21 10:59 CRAZY, HALLUCINATIONS, BIZARRE BEHAVIOR Home Meds Home Medications Medication Instructions Recorded Confirmed Spiriva Respimat 2 puff INHALATION QAM 08/14/20 12/27/20 cyanocobalamin (vitamin B-12) 500 mcg PO QAM 08/14/20 12/27/20 [Vitamin B-12] ferrous sulfate 325 mg PO QAM 08/14/20 12/27/20 finasteride [Proscar] 5 mg PO QAM 08/14/20 12/27/20 folic acid 1 mg PO QAM 08/14/20 12/27/20 metformin 500 mg PO BID 08/14/20 12/27/20 tamsulosin 0.4 mg PO QAM 08/14/20 12/27/20 atorvastatin 20 mg PO QAM 08/23/20 12/27/20 budesonide-formoterol 2 puff INHALATION BID 08/23/20 12/27/20 furosemide 20 mg PO QAM 08/23/20 12/27/20 gabapentin 600 mg PO TID 08/23/20 12/27/20 magnesium oxide 420 mg PO QAM 08/23/20 12/27/20 meclizine 12.5 mg PO TID PRN 08/23/20 12/27/20 melatonin 3 mg PO HS PRN 08/23/20 12/27/20 multivitamin with minerals 1 tab PO QAM 08/23/20 12/27/20 [Multiple Vitamin-Minerals] nadolol 40 mg PO QAM 12/18/20 12/27/20 Previous Rx's Medication Instructions Recorded propranolol 20 mg PO BID #60 tab 08/28/20 docusate sodium [Colace] 100 mg PO BID #60 cap 11/14/20 Results & Data (ED) Vital Signs Vital Signs - 24 hr 01/06/21 10:09 01/06/21 10:13 01/06/21 10:15 Temperature Temperature Source Pulse Rate 68 68 68 Pulse Rate from SpO2 Sensor 68 69 68 Respiratory Rate 19 21 25 H Respiratory Effort / Characteristics Respiratory Pattern Blood Pressure 101/60 Blood Pressure Mean 73 Blood Pressure Position Pulse Oximetry 100 100 100 Oxygen Delivery Method Oxygen Flow Rate Sepsis Recent Fever Within 48 Hours Sepsis New/Unexplained Change in Mental Status Sepsis Action Taken by Nursing 01/06/21 10:30 01/06/21 10:33 01/06/21 10:36 Temperature 36.6 C Temperature Source Oral Pulse Rate 69 68 71 Pulse Rate from SpO2 Sensor 69 68 Respiratory Rate 29 H 21 30 H Respiratory Effort / Characteristics Short of Breath Respiratory Pattern Regular Blood Pressure 88/61 L 100/63 Blood Pressure Mean 70 75 Blood Pressure Position Pulse Oximetry 100 100 97 Oxygen Delivery Method Room Air Oxygen Flow Rate Sepsis Recent Fever Within 48 Hours No Sepsis New/Unexplained Change in Mental Status No Sepsis Action Taken by Nursing No Action Required 01/06/21 10:43 01/06/21 10:49 01/06/21 10:51 Temperature Temperature Source Pulse Rate 70 75 Pulse Rate from SpO2 Sensor 71 73 Respiratory Rate 28 H 29 H Respiratory Effort / Characteristics Respiratory Pattern Blood Pressure 100/63 Blood Pressure Mean 75 Blood Pressure Position Pulse Oximetry 96 100 100 Oxygen Delivery Method Nasal Cannula Oxygen Flow Rate 4 Sepsis Recent Fever Within 48 Hours Sepsis New/Unexplained Change in Mental Status Sepsis Action Taken by Nursing 01/06/21 10:54 01/06/21 11:00 01/06/21 11:01 Temperature Temperature Source Pulse Rate 71 71 71 Pulse Rate from SpO2 Sensor 71 84 71 Respiratory Rate Respiratory Effort / Characteristics Respiratory Pattern Blood Pressure 99/63 L 88/30 L Blood Pressure Mean 75 49 Blood Pressure Position Pulse Oximetry 100 91 100 Oxygen Delivery Method Oxygen Flow Rate Sepsis Recent Fever Within 48 Hours Sepsis New/Unexplained Change in Mental Status Sepsis Action Taken by Nursing 01/06/21 11:15 01/06/21 11:16 01/06/21 11:30 Temperature 36.8 C Temperature Source Oral Pulse Rate 70 70 69 Pulse Rate from SpO2 Sensor 74 70 70 Respiratory Rate 18 Respiratory Effort / Characteristics Respiratory Pattern Blood Pressure 85/51 L 94/73 L Blood Pressure Mean 62 80 Blood Pressure Position Pulse Oximetry 100 100 100 Oxygen Delivery Method Nasal Cannula Nasal Cannula Oxygen Flow Rate 5 5 Sepsis Recent Fever Within 48 Hours Sepsis New/Unexplained Change in Mental Status Sepsis Action Taken by Nursing 01/06/21 11:32 01/06/21 11:45 01/06/21 11:46 Temperature 36.8 C Temperature Source Oral Pulse Rate 69 69 67 Pulse Rate from SpO2 Sensor 68 68 Respiratory Rate 16 Respiratory Effort / Characteristics Respiratory Pattern Blood Pressure 94/73 L 101/54 L Blood Pressure Mean 80 69 Blood Pressure Position Pulse Oximetry 100 100 100 Oxygen Delivery Method Nasal Cannula Nasal Cannula Oxygen Flow Rate 5 5 Sepsis Recent Fever Within 48 Hours Sepsis New/Unexplained Change in Mental Status Sepsis Action Taken by Nursing 01/06/21 12:00 01/06/21 12:01 01/06/21 12:04 Temperature 36.7 C Temperature Source Oral Pulse Rate 68 69 69 Pulse Rate from SpO2 Sensor 69 69 Respiratory Rate 24 Respiratory Effort / Characteristics Respiratory Pattern Blood Pressure 117/65 117/65 Blood Pressure Mean 82 82 Blood Pressure Position Lying Pulse Oximetry 100 100 100 Oxygen Delivery Method Oxygen Flow Rate Sepsis Recent Fever Within 48 Hours Sepsis New/Unexplained Change in Mental Status Sepsis Action Taken by Nursing 01/06/21 12:13 01/06/21 12:32 Temperature Temperature Source Pulse Rate 67 70 Pulse Rate from SpO2 Sensor Respiratory Rate 20 Respiratory Effort / Characteristics Respiratory Pattern Blood Pressure 110/62 Blood Pressure Mean 78 Blood Pressure Position Pulse Oximetry Oxygen Delivery Method Oxygen Flow Rate Sepsis Recent Fever Within 48 Hours Sepsis New/Unexplained Change in Mental Status Sepsis Action Taken by Snf Medications Current Medication List: was personally reviewed by me Laboratory Data Attestation: I reviewed the patient's lab results. Result diagrams: 01/06/21 10:19 01/06/21 10:19 Lab Results 01/06/21 01/06/21 01/06/21 Range/Units 10:19 10:19 10:19 WBC 13.59 H (4.8-10.8) K/uL RBC 1.96 L (4.7-6.1) M/uL Hgb 6.0 L* (14.0-18.0) g/dL Hct 18.2 L* (42-52) % MCV 92.9 (80-100) fL MCH 30.6 (25-34) pg MCHC 33.0 (32-36) g/dL RDW Std Deviation 64.6 H (36.4-46.3) fL RDW Coeff of Anderson 19.3 H (11.5-14.5) % Plt Count 195 (130-400) K/uL MPV 10.8 H (7.4-10.4) fL Immature Gran % (Auto) 1.1 % Neut % (Auto) 65.5 % Lymph % (Auto) 17.0 % [place] % (Auto) 10.0 % Eos % (Auto) 5.8 % Baso % (Auto) 0.6 % Neut # (Auto) 8.90 H (1.4-6.5) K/uL Lymph # (Auto) 2.31 (1.2-3.4) K/uL [place] # (Auto) 1.36 H (0.11-0.59) K/uL Eos # (Auto) 0.79 H (0-0.5) K/uL Baso # (Auto) 0.08 (0-0.2) K/uL Immature Gran # (Auto) 0.15 H (0.00-0.02) K/uL Poikilocytosis Present Anisocytosis Present PT 13.7 H (9.0-12.0) Seconds INR 1.4 H (0.9-1.1) APTT 25.5 (21.0-31.0) Seconds PTT Ratio 1.0 Sodium (136-145) mmol/L Potassium (3.5-5.1) mmol/L Chloride (98-107) mmol/L Carbon Dioxide (21-32) mmol/L Anion Gap (3-11) BUN (7-18) mg/dl Creatinine (0.6-1.4) mg/dl Est Cr Clr Drug Dosing Est GFR ( Amer) Est GFR (Non-Af Amer) BUN/Creatinine Ratio (10-20) Glucose (70-99) mg/dl Calcium (8.5-10.1) mg/dl Total Bilirubin (0.2-1) mg/dl AST (15-37) U/L ALT (12-78) U/L Alkaline Phosphatase (45-117) U/L Troponin I (0-0.045) ng/ml Total Protein (6.4-8.2) gm/dl Albumin (3.4-5.0) gm/dl Globulin (2.5-4.0) gm/dl Albumin/Globulin Ratio (0.9-2) Lipase (73-393) U/L COVID-19 Eval Order Blood Type O Positive Blood Type Recheck Antibody Screen NEGATIVE Crossmatch See Detail 01/06/21 01/06/21 01/06/21 Range/Units 10:19 10:45 10:45 WBC (4.8-10.8) K/uL RBC (4.7-6.1) M/uL Hgb (14.0-18.0) g/dL Hct (42-52) % MCV (80-100) fL MCH (25-34) pg MCHC (32-36) g/dL RDW Std Deviation (36.4-46.3) fL RDW Coeff of Anderson (11.5-14.5) % Plt Count (130-400) K/uL MPV (7.4-10.4) fL Immature Gran % (Auto) % Neut % (Auto) % Lymph % (Auto) % [place] % (Auto) % Eos % (Auto) % Baso % (Auto) % Neut # (Auto) (1.4-6.5) K/uL Lymph # (Auto) (1.2-3.4) K/uL [place] # (Auto) (0.11-0.59) K/uL Eos # (Auto) (0-0.5) K/uL Baso # (Auto) (0-0.2) K/uL Immature Gran # (Auto) (0.00-0.02) K/uL Poikilocytosis Anisocytosis PT (9.0-12.0) Seconds INR (0.9-1.1) APTT (21.0-31.0) Seconds PTT Ratio Sodium 142 (136-145) mmol/L Potassium 4.9 (3.5-5.1) mmol/L Chloride 115 H (98-107) mmol/L Carbon Dioxide 17 L (21-32) mmol/L Anion Gap 10.0 (3-11) BUN 29 H (7-18) mg/dl Creatinine 3.10 H (0.6-1.4) mg/dl Est Cr Clr Drug Dosing Not Reportable Est GFR ( Amer) 22.4 Est GFR (Non-Af Amer) 19.3 BUN/Creatinine Ratio 9.4 L (10-20) Glucose 152 H (70-99) mg/dl Calcium 8.3 L (8.5-10.1) mg/dl Total Bilirubin 1.1 H (0.2-1) mg/dl AST 32 (15-37) U/L ALT 19 (12-78) U/L Alkaline Phosphatase 112 (45-117) U/L Troponin I < 0.015 (0-0.045) ng/ml Total Protein 5.4 L (6.4-8.2) gm/dl Albumin 1.8 L (3.4-5.0) gm/dl Globulin 3.6 (2.5-4.0) gm/dl Albumin/Globulin Ratio 0.5 L (0.9-2) Lipase 290 (73-393) U/L COVID-19 Eval Order Blood Type Cancelled Blood Type Recheck O Positive Antibody Screen Cancelled Crossmatch 01/06/21 Range/Units 12:30 WBC (4.8-10.8) K/uL RBC (4.7-6.1) M/uL Hgb (14.0-18.0) g/dL Hct (42-52) % MCV (80-100) fL MCH (25-34) pg MCHC (32-36) g/dL RDW Std Deviation (36.4-46.3) fL RDW Coeff of Anderson (11.5-14.5) % Plt Count (130-400) K/uL MPV (7.4-10.4) fL Immature Gran % (Auto) % Neut % (Auto) % Lymph % (Auto) % [place] % (Auto) % Eos % (Auto) % Baso % (Auto) % Neut # (Auto) (1.4-6.5) K/uL Lymph # (Auto) (1.2-3.4) K/uL [place] # (Auto) (0.11-0.59) K/uL Eos # (Auto) (0-0.5) K/uL Baso # (Auto) (0-0.2) K/uL Immature Gran # (Auto) (0.00-0.02) K/uL Poikilocytosis Anisocytosis PT (9.0-12.0) Seconds INR (0.9-1.1) APTT (21.0-31.0) Seconds PTT Ratio Sodium (136-145) mmol/L Potassium (3.5-5.1) mmol/L Chloride (98-107) mmol/L Carbon Dioxide (21-32) mmol/L Anion Gap (3-11) BUN (7-18) mg/dl Creatinine (0.6-1.4) mg/dl Est Cr Clr Drug Dosing Est GFR ( Amer) Est GFR (Non-Af Amer) BUN/Creatinine Ratio (10-20) Glucose (70-99) mg/dl Calcium (8.5-10.1) mg/dl Total Bilirubin (0.2-1) mg/dl AST (15-37) U/L ALT (12-78) U/L Alkaline Phosphatase (45-117) U/L Troponin I (0-0.045) ng/ml Total Protein (6.4-8.2) gm/dl Albumin (3.4-5.0) gm/dl Globulin (2.5-4.0) gm/dl Albumin/Globulin Ratio (0.9-2) Lipase (73-393) U/L COVID-19 Eval Order Covid19 IDNow [facility] Blood Type Blood Type Recheck Antibody Screen Crossmatch Administered Medications Pantoprazole Sodium 40 mg/ (Dextrose) 100 mls @ 20 mls/hr IV Q5H ELGIN Stop: 02/05/21 11:26 Last Admin: 01/06/21 12:35 Dose: 8 mg/hr, 20 mls/hr Documented by: [id number] Discontinued Medications Sodium Chloride (Nss) 500 mls @ 999 mls/hr IV .Q31M ELGIN Stop: 01/06/21 11:00 Last Admin: 01/06/21 10:34 Dose: 999 mls/hr Documented by: [id number] Ceftriaxone Sodium (Rocephin) 1,000 mg in 50 mls @ 100 mls/hr IV NOW STA Stop: 01/06/21 10:47 Last Admin: 01/06/21 11:14 Dose: 100 mls/hr Documented by: [id number] Phytonadione 5 mg/ Sodium (Chloride) 50.5 mls @ 101 mls/hr IV 1130 ONE Stop: 01/06/21 11:59 Last Admin: 01/06/21 11:41 Dose: 101 mls/hr Documented by: [id number] Sodium Chloride (Nss 1000ml) 1,000 mls @ 999 mls/hr IV .Q1H1M ONE Stop: 01/06/21 12:11 Last Admin: 01/06/21 11:41 Dose: 999 mls/hr Documented by: [id number] Pantoprazole Sodium (Protonix Bolus/Drip) 0 mls @ 1 mls/hr IV ONE STA Stop: 01/06/21 11:12 Last Admin: 01/06/21 11:42 Dose: Not Given Documented by: [id number] Pantoprazole Sodium 80 mg/ (Dextrose) 120 mls @ 400 mls/hr IV NOW ONE Stop: 01/06/21 11:28 Last Admin: 01/06/21 11:41 Dose: 400 mls/hr, 400 mls/hr Documented by: [id number] Ceftriaxone Sodium (Rocephin) 1,000 mg in 50 mls @ 100 mls/hr IV NOW STA Stop: 01/06/21 12:08 Last Admin: 01/06/21 12:36 Dose: Not Given Documented by: [id number] Imaging Data Radiologist's Impression: Patient: EARNEST POOL Admit Date: 01/06/21 MR#: [id number] Address1: [address] [place] [address] Acct ID:[id number] Address2: [facility] Date: 1950 [facility] Zip: [place] [address] Age: 70 Location: ED Sex: M Room/Bed: Att Phy: Diagnosis: GI BLEED [place] Phy: Osmany Molina MD Service Date: 01/06/21 [facility] Phy: Interpreting Phy: Ta Nash MD Admit Phy: Ordering Phy: Rubin Hoover DO cc: ~ CT OF THE ABDOMEN AND PELVIS WITHOUT CONTRAST CLINICAL HISTORY: GI bleed. COMPARISON STUDY: CT of the abdomen and pelvis November 14, 2020. TECHNIQUE: Axial images of the abdomen and pelvis were obtained without IV contrast. Images were reviewed in the axial, sagittal, and coronal planes. Automated exposure control was utilized for the study. A dose lowering technique was utilized adhering to the principles of ALARA. FINDINGS: Mild emphysema is noted within the lower lungs. A few small subpleural pulmonary nodules are unchanged. These are indeterminate although probably benign. A small hiatal hernia is noted. This contains ascites. Gastric folds are prominent. Evaluation of the abdomen and pelvis is suboptimal on this unenhanced examination. No pneumatosis, free air or portal venous gas is present. Cardiac blood pool is hypodense. The liver is cirrhotic. Sensitivity for detection of hepatic lesions is diminished on this unenhanced exam but none are identified. The gallbladder is surgically absent. Mild splenomegaly is unchanged. Varices are again noted. Large amount of abdominal and pelvic ascites has increased since prior CT of November 14, 2020. There is no evidence for a bowel obstruction. There is mild rectal wall thickening. Note is also made of wall thickening of the ascending colon and hepatic flexure of the colon. This was shown on prior CT. Ascites within a left inguinal hernia is noted. A 3.1 cm infrarenal abdominal aortic aneurysm is unchanged. The adrenal glands, kidneys and pancreas are unremarkable on this unenhanced exam. There is no hydronephrosis. No acute fracture or suspicious lesion is identified within the visualized skeletal structures. IMPRESSION: 1. Cirrhosis with manifestations of portal hypertension including large ascites, splenomegaly and varices formation. 2. No change in right colon and rectal wall thickening. This is likely due to po rtal hypertension however a nonspecific proctocolitis could appear similar. No bowel obstruction. 3. Suboptimal evaluation of the abdomen and pelvis on this unenhanced exam. 4. No change in a 3.1 cm infrarenal abdominal aortic aneurysm. ACT 112: Negative or not required by law. Electronically signed by: Ta Nash M.D. 01/06/2021 12:45 PM Dictated: 01/06/21 1236 Transcribed: 01/06/21 1236 Discharge Plan Visit Data Chief Complaint: GI Bleed ED Provider: Jonh Karimi Discharge Problem: Acute lower GI bleeding, Acute hypotension, Anemia, Abdominal ascites Patient Disposition: Being Evaluated by Hospitalist Condition: Good Forms Stand Alone Forms: My [employer] Prescriptions Prescriptions: No Action metformin 500 mg Tablet 500 mg PO BID RF: 0 cyanocobalamin (vitamin B-12) [Vitamin B-12] 500 mcg Tablet 500 mcg PO QAM RF: 0 tamsulosin 0.4 mg Capsule 0.4 mg PO QAM RF: 0 ferrous sulfate 325 mg (65 mg iron) Tablet 325 mg PO QAM RF: 0 folic acid 1 mg Tablet 1 mg PO QAM RF: 0 finasteride [Proscar] 5 mg Tablet 5 mg PO QAM RF: 0 Spiriva Respimat 1.25 mcg/actuation Mist 2 puff INHALATION QAM RF: 0 docusate sodium [Colace] 100 mg capsule 100 mg PO BID Qty: 60 RF: 0 nadolol 40 mg Tablet 40 mg PO QAM RF: 0 atorvastatin 40 mg Tablet 20 mg PO QAM RF: 0 budesonide-formoterol 160-4.5 mcg/actuation Hfa Aerosol Inhaler 2 puff INHALATION BID RF: 0 furosemide 20 mg Tablet 20 mg PO QAM RF: 0 gabapentin 300 mg Capsule 600 mg PO TID RF: 0 magnesium oxide 420 mg Tablet 420 mg PO QAM RF: 0 meclizine 12.5 mg Tablet 12.5 mg PO TID PRN (Reason: Dizziness Or Vertigo) RF: 0 melatonin 3 mg Tablet 3 mg PO HS PRN (Reason: Insomnia) RF: 0 multivitamin with minerals [Multiple Vitamin-Minerals] Tablet 1 tab PO QAM RF: 0 propranolol 20 mg tablet 20 mg PO BID Qty: 60 RF: 0 Referrals Referrals: Osmany Molina MD [Primary Care Provider] -
[2021-01-06 10:40] LABS: INR 1.4 (0.9-1.1); Partial Thromboplastin Time 25.5 Seconds (21.0-31.0); Prothrombin Time 13.7 Seconds (9.0-12.0)
[2021-01-06 10:44] LABS: Anisocytosis Present; Basophils # (auto) 0.08 K/uL (0-0.2); Basophils % (auto) 0.6 %; Eosinophils # (auto) 0.79 K/uL (0-0.5); Eosinophils % (auto) 5.8 %; Immature Granulocytes # (auto) 0.15 K/uL (0.00-0.02); Immature Granulocytes % (auto) 1.1 %; Lymphocytes # (auto) 2.31 K/uL (1.2-3.4); Monocytes # (auto) 1.36 K/uL (0.11-0.59); Neutrophils % (auto) 65.5 %; Poikilocytosis Present
[2021-01-06 10:45] LABS: Alanine Aminotransferase 19 U/L (12-78); Albumin Level 1.8 gm/dl (3.4-5.0); Aspartate Aminotransferase 32 U/L (15-37); BUN Creatinine Ratio 9.4 (10-20); Blood Urea Nitrogen 29 mg/dl (7-18); Calcium 8.3 mg/dl (8.5-10.1); Carbon Dioxide 17 mmol/L (21-32); Chloride 115 mmol/L (98-107); Est GFR (African American) 22.4; Est GFR (Non-African American) 19.3; Glucose 152 mg/dl (70-99); Lipase 290 U/L (73-393); Potassium 4.9 mmol/L (3.5-5.1); Sodium 142 mmol/L (136-145)
[2021-01-06 10:49] LABS: Albumin Globulin Ratio 0.5 (0.9-2); Alkaline Phosphatase 112 U/L (45-117); Bilirubin,Total 1.1 mg/dl (0.2-1); Globulin 3.6 gm/dl (2.5-4.0); Total Protein 5.4 gm/dl (6.4-8.2); Troponin I < 0.015 ng/ml (0-0.045)
[2021-01-06] MEDS ORDERED: SODIUM CHLORIDE 0.9% 1000ML 1,000 ML IV ONE (11:11)
[2021-01-06] MEDS ORDERED: PANTOprazole 80 MG in DEXTROSE 5% 100 ML IV ONE (11:11)
[2021-01-06] MEDS ORDERED: PANTOPRAZOLE BOLUS/DRIP 1 EA IV STA (11:11)
[2021-01-06] MEDS ORDERED: PANTOprazole 40 MG in DEXTROSE 5% 100 ML IV SCH (11:27)
[2021-01-06] MEDS ORDERED: PHYTONADIONE 5 MG in SODIUM CHLORIDE 0.9% 50 ML IV ONE (11:30)
--- NOTE | 2021-01-06 11:38 | History & Physical Report ---
Date of Service January 06, 2021 Assessment & Plan (1) Acute gastrointestinal bleeding: Acute blood loss anemia with hemoglobin 6.0 from 11.4 in October. Recent colonoscopy performed 10 days ago with one 5 mm polyp removed in distal ascending colon multiple recently bleeding colonic angiectasias treated with argon plasma coagulation. Suspected cause of current bleeding of these colonic angiectasias however will also cover an upper GI bleed with IV pantoprazole given severity of condition and known esophageal varices. Cover for bacterial translocation with ceftriaxone 2 g IV daily BP 80/30 when seen, likely current hemoglobin around 5.0 given hemoconcentration and now on second liter of NSS bolus. Transfuse 4 units with first two unit run stat now at the same time given this is a life threatening emergency benefit of requiring blood products > risk of reaction with increased rate. FFP to be transfused after first two units packed RBCs. Consult gastroenterology stat - Dr Estrada aware of patient from ER physician. Admit to ICU given life threatening emergency and possible need for vasopressor support. (2) Hypotension due to blood loss: Fluid resuscitation in the emergency room with 2L NSS bolus while awaiting packed RBCs. Now receiving 2 units simultaneously of packed RBCs (3) Esophageal varices: Grade 2 esophageal varices noted on recent EGD 10 days ago. Given bright noemi blood in stool suspect major cause of bleeding is lower gastrointestinal. (4) Liver cirrhosis: Hepatitis C, posttreatment (unknown details regarding this) History of hepatic encephalopathy however current mentation normal even with low blood pressure and acute blood loss anemia. (5) Hepatitis C: (6) BPH (benign prostatic hyperplasia): Hold finasteride pending stability and blood pressure. Rausch catheter insertion. (7) Acute kidney failure: Secondary to hypovolemia and low hemoglobin. CT abdomen pelvis to rule out obstructive uropathy Monitor with a.m. labs. (8) Diabetes: Historical diagnosis. HbA1c 4.8 in August 2020. Glucose 152 on arrival likely acutely rasied with stress. Monitor BSG ACHS with insulin sliding scale for correction factor only. Consider stopping Metformin on discharge. (9) Aortic aneurysm: Notable history of this (10) Peripheral neuropathy: Chronic pain possibly from lumbar degenerative disease versus diabetes. Restart gabapentin when able to take p.o. medication. (11) Malignant neoplasm of prostate: Follows with [facility]. Outside note reports having Lupron injections. (12) CAD (coronary artery disease): Follows with cardiology in [place]. Previous stents with last 9 drug- eluting stent placed to mid LAD in 2018. Unable to take antiplatelets due to GI bleeds. Restart beta-klaudia and atorvastatin when able to take p.o. meds and blood pressure /GI bleed stable. (13) DVT prophylaxis: SCDs Chemical anticoagulation contraindicated Admission and Anticipated Discharge Date Admission Date: January 06, 2021 History of Present Illness Primary Care Provider: Osmany Molina MD Alfredo Willis is a 70-year-old male with esophageal varices, colonic ectasia and liver cirrhosis who presents to the ER via EMS with lower GI bleed. Unfortunately his history is somewhat fragmented due to poor recollection and multiple hospitalizations in different institutions with outpatient [facility] care. The patient reports lower GI bleeding for approximately 5 months with bright red blood in stool however this significantly increased after his colonoscopy 10 days ago. EGD was also performed at this time which showed grade 2 esophageal varices with diffuse moderately erythematous mucosa without bleeding found in the entire stomach. Colonoscopy was notable for a 5 mm sessile polyp in the distal ascending colon which was resected and hemostatic clip placed. Also noted to have multiple medium sized localized angiectasia's with stigmata of recent bleeding in the distal rectum which was coagulated for hemostasis using an argon laser. Some prior notes a history of Crohn's disease however this was not seen on recent colonoscopy. This morning he woke up with a large puddle of blood on his bed sheets with blood running down his legs. Initial blood pressure for EMS 70/30 with increased respiratory rates in the 30s. He denies taking any antiplatelets or anticoagulation (although notably aspirin and Plavix as mentioned [facility] as an outside medication he takes). He does report a large upper GI bleed from varices in the past requiring 4 units of blood transfusion. Of note the patient took none of his usual medications this morning. In the ER hemoglobin noted to be 6.0 from last known 11.42 months ago. Initial blood pressure in the emergency room was hypotensive with 169/86. 4 units of packed red blood cells ordered however these have not been started when I saw the patient. Patient's sister (next of kin) was informed of admission and severity of life- threatening illness. Allergies Allergy/AdvReac Type Severity Reaction Status Date / Time fentanyl Allergy Severe WENT Verified 01/06/21 10:59 CRAZY, HALLUCINATIONS, BIZARRE BEHAVIOR Home Medications Medication Instructions Recorded Confirmed Type Spiriva Respimat 2 puff INHALATION QAM 08/14/20 12/27/20 History cyanocobalamin (vitamin B-12) 500 mcg PO QAM 08/14/20 12/27/20 History [Vitamin B-12] ferrous sulfate 325 mg PO QAM 08/14/20 12/27/20 History finasteride [Proscar] 5 mg PO QAM 08/14/20 12/27/20 History folic acid 1 mg PO QAM 08/14/20 12/27/20 History metformin 500 mg PO BID 08/14/20 12/27/20 History tamsulosin 0.4 mg PO QAM 08/14/20 12/27/20 History atorvastatin 20 mg PO QAM 08/23/20 12/27/20 History budesonide-formoterol 2 puff INHALATION BID 08/23/20 12/27/20 History furosemide 20 mg PO QAM 08/23/20 12/27/20 History gabapentin 600 mg PO TID 08/23/20 12/27/20 History magnesium oxide 420 mg PO QAM 08/23/20 12/27/20 History meclizine 12.5 mg PO TID PRN 08/23/20 12/27/20 History melatonin 3 mg PO HS PRN 08/23/20 12/27/20 History multivitamin with minerals 1 tab PO QAM 08/23/20 12/27/20 History [Multiple Vitamin-Minerals] propranolol 20 mg PO BID #60 tab 08/28/20 12/27/20 Rx docusate sodium [Colace] 100 mg PO BID #60 cap 11/14/20 12/27/20 Rx nadolol 40 mg PO QAM 12/18/20 12/27/20 History Past Med/Surg History Medical History Aortic aneurysm CAD (coronary artery disease) Follows with [place] [facility] Chronic pain COPD (chronic obstructive pulmonary disease) Crohn's disease Crushing injury of chest 1970s Depression DM type 2 (diabetes mellitus, type 2) NIDDM Esophageal varices with banding x 3 (most recent approx 1 year ago) Hepatic encephalopathy history of - 2019 History of CVA (cerebrovascular accident) approx 6 years ago; no residual History of hepatitis C History of nephrolithiasis History of prostate cancer dx 1 year ago; radiation History of subdural hematoma HTN (hypertension) Hyperlipemia Hypertension Malignant neoplasm of prostate Non-alcoholic cirrhosis Peripheral neuropathy Poor historian history obtained from staff member at [facility] and pt Tremor Surgical History H/O heart artery stent LAD stent - 2017 H/O inguinal hernia repair left side History of aortic aneurysm repair History of cardiac cath 2018 [facility] [place] History of cholecystectomy History of cystoscopy History of esophageal surgery as an History of facial surgery as a child following injury History of hernia repair multiple Family History Other Family history non-contributory Social History Smoking Status: Unknown if ever smoked Tobacco Type: Cigarettes Hx Alcohol Use: No Hx Substance Use: No Preferred Language: Frisian Communication Ability: Effective Health Care Analyst Required: No Beliefs That Will Affect Care: Synagogue Synagogue Beliefs: SIKH Current Living Situation: Personal Care Facility Current Living Situation Comment: ASSISTED LIVING Feels Safe at Home: Yes Assistive Devices: Cane and Glasses Review of Systems Review of Systems: All systems reviewed & are unremarkable except as noted in HPI & below Constitutional: + fatigue; no fever and no chills Cardiovascular: + dyspnea at rest; no chest pain Gastrointestinal: + bloating (5 months) and + diarrhea/loose stools; no abdominal pain, no belching, no heartburn, no nausea, no vomiting, no coffee ground emesis and no cramping Neurologic: + generalized weakness and + dizziness Physical Exam Constitutional: + acute distress (Respiratory), + ill appearing (Pale) and + thin Eyes: + conjunctival abnormality (pale) Neck: trachea midline Respiratory: + respiratory distress, + labored breathing, + retractions and + uses accessory muscles; + not able to speak in complete sentence Auscultation: lungs clear to auscultation bilaterally Cardiovascular: Rate/Rhythm: regular rate and regular rhythm Heart Sounds: no murmur Extremities: + abnormal capillary refill (10 seconds in periphery, 4 seconds centrally), no calf tenderness and no pedal edema Gastrointestinal (Abdomen): Inspection/Auscultation: abdomen normal to inspection (Well-healed central abdominal surgical scar), + abdomen distended and + hypoactive bowel sounds Percussion/Palpation: abdomen soft; abdomen nontender, no guarding and abdomen not rigid Musculoskeletal: Extremities: + cyanosis Skin: no rashes, warm and dry + pallor (Generalized) Neurologic: moves all extremities and awake; not confused Psychiatric: A+Ox3, euthymic affect Results & Data Results & Data ([facility]) Vital Signs (Past 12 Hours) Vital Signs Temp Pulse Resp BP Pulse Ox 01/06/21 11:32 36.8 C 69 16 94/73 L 100 01/06/21 11:30 36.8 C 70 18 85/51 L 100 01/06/21 10:49 29 H 100 01/06/21 10:36 36.6 C 71 30 H 100/63 97 Diagnostic Findings XR chest 1V portable IMPRESSION: No acute cardiopulmonary findings. Medications Administered ER medications given: NSS 500 mL + 1 L bolus Ceftriaxone 1 g IV Pantoprazole IV bolus and drip ECG Indication: SOB/dyspnea Rate (beats per minute): 67 Rhythm: normal sinus Findings: no acute ischemic change Comparison ECG Date: from (November 14, 2020) Change: no significant change Code Status & VTE Plan Code Status DNR in the event of a cardiac arrest. He wishes to be intubated in the event of a possible reversible condition. All of her ACLS treatment outside of a cardiac arrest. VTE Prophylaxis Plan VTE Prophylaxis will be ordered: Yes Reason for no VTE drug order: Contraindicated Critical Care Time Total Critical Care Time: 25 Including coordination of care with ER physician, ICU attending/resident, blood bank. This is a life-threatening illness. PG Care Time/CCT Total # of Minutes Spent Total Time Spent with Patient: Total time spent is greater than 50% in coordination of care (as documented) at patient's floor/unit and/or counseling patient: Total Critical Care Time: 25 Coding Level of Care Code 56106 Initial Inpt Care Lvl 3 Diagnoses Acute gastrointestinal bleeding K92.2 Hypotension due to blood loss I95.89 Esophageal varices I85.00 Liver cirrhosis K74.60; R18.8 Ascites presence: with ascites Hepatic cirrhosis type: unspecified hepatic cirrhosis Hepatitis C B19.20 BPH (benign prostatic hyperplasia) N40.0 Acute kidney failure N17.9 Diabetes E13.69 Diabetes mellitus complication status: with other specified complication Diabetes mellitus buttermaker helper insulin use: unspecified detention insulin use status Diabetes mellitus type: other specified (including JC) Aortic aneurysm I71.9 Peripheral neuropathy G62.9 Malignant neoplasm of prostate C61 CAD (coronary artery disease) I25.10 DVT prophylaxis Z29.9 (1) Diabetes Diabetes mellitus complication status: with other specified complication Diabetes mellitus detention insulin use: unspecified buttermaker helper insulin use status Diabetes mellitus type: other specified (including JC) Qualified Code(s): E13.69 - Other specified diabetes mellitus with other specified complication (2) Liver cirrhosis Ascites presence: with ascites Hepatic cirrhosis type: unspecified hepatic cirrhosis Qualified Code(s): K74.60 - Unspecified cirrhosis of liver; R18.8 - Other ascites
--- NOTE | 2021-01-06 12:47 | CT Scan Report ---
CT OF THE ABDOMEN AND PELVIS WITHOUT CONTRAST CLINICAL HISTORY: GI bleed. COMPARISON STUDY: CT of the abdomen and pelvis November 14, 2020. TECHNIQUE: Axial images of the abdomen and pelvis were obtained without IV contrast. Images were revi ewed in the axial, sagittal, and coronal planes. Automated exposure control was utilized for the siobhan dy. A dose lowering technique was utilized adhering to the principles of ALARA. FINDINGS: Mild emphysema is noted within the lower lungs. A few small subpleural pulmonary nodules ar e unchanged. These are indeterminate although probably benign. A small hiatal hernia is noted. This c ontains ascites. Gastric folds are prominent. Evaluation of the abdomen and pelvis is suboptimal on t his unenhanced examination. No pneumatosis, free air or portal venous gas is present. Cardiac blood p ool is hypodense. The liver is cirrhotic. Sensitivity for detection of hepatic lesions is diminished on this unenhanced exam but none are identified. The gallbladder is surgically absent. Mild splenomeg ara is unchanged. Varices are again noted. Large amount of abdominal and pelvic ascites has increased since prior CT of November 14, 2020. There is no evidence for a bowel obstruction. There is mild rec carla wall thickening. Note is also made of wall thickening of the ascending colon and hepatic flexure of the colon. This was shown on prior CT. Ascites within a left inguinal hernia is noted. A 3.1 cm in frarenal abdominal aortic aneurysm is unchanged. The adrenal glands, kidneys and pancreas are unremar kable on this unenhanced exam. There is no hydronephrosis. No acute fracture or suspicious lesion is identified within the visualized skeletal structures. IMPRESSION: 1. Cirrhosis with manifestations of portal hypertension including large ascites, splenomegaly and verona ices formation. 2. No change in right colon and rectal wall thickening. This is likely due to portal hypertension how ever a nonspecific proctocolitis could appear similar. No bowel obstruction. 3. Suboptimal evaluation of the abdomen and pelvis on this unenhanced exam. 4. No change in a 3.1 cm infrarenal abdominal aortic aneurysm. ACT 112: Negative or not required by law. Electronically signed by: Ta Nash M.D. 01/06/2021 12:45 PM
--- NOTE | 2021-01-06 12:54 | Critical Care Consultation ---
Date of Consultation January 06, 2021 Assessment & Plan (1) Acute gastrointestinal bleeding: Reason Critically Ill: Acute GI bleed with associated hypotension. NEURO: -Patient at this time alert and oriented x3 -With history of CVA without residual effect. CARDIAC: -Acute GI bleed with initial Hgb 6 on admission -Has at this point in time received ~0.5 units of PRBC, 4 units ordered, 4 units of FFP ordered -Hypotension improved to 110/62 after administration of 2L NSS in ED -No pressure support required at this time, though can consider starting if bleed continues to progress and pressures continue to fall. -Will continue CBC checks q6h -Will hold home beta-blockers at this time due to hypotension -Hold home furosemide for hypotension RESPIRATORY: -History of COPD -Resume patients home meds Symbicort and Spiriva when more medically stable GI: -Acute GI bleed as above, continue with PRBC infusion and CBC checks -CT/Ab Pelvis without con pending -NPO (last meal night of 01/05/21) -GI consulted -Suspect patient will require colonoscopy to determine source of bleed, though possible secondary to patient's esophageal varices, lower suspicion as he has no nausea or hematemesis and blood loss per rectum is bright red. -Will continue protonix gtt at this time -Started on Ceftriaxone in the ED empirically, will continue -Consider Octreotide if suspicions for variceal bleed increase RENAL/LYTES: -In acute renal failure with Creatinine 3.1 -Will continue to monitor after fluid and blood resuscitation : -No acute concerns at this time ENDO: -ICU hyperglycemic protocol HEME: -Hgb 6 as noted above -Continue to monitor cbc q6h -Currently infusing 4 unit PRBC and 4 unit FFP ID: -Empiric Ceftriaxone while in acute GI bleed LINES/IV ACCESS: Central R leg, 1x 20g PIV R arm, 1x 20g PIV L ARM CODE STATUS: Conditional - No CPR, OK for intubation DVT PROPHYLAXIS: contraindicated Thank you for allowing us to participate in the care of this patient. Please refer to my attending physician's documentation for any further recommendations. Supervising Physician Co-Signing Physician Notes Dr. Hoover Was the resident-physician during care of patient. I separately evaluated patient for ivy portions of the history and the exam. I was present during the critical portion of medical decision making, and I discussed the case with the resident. I generally agree with the findings and plan except for any additions/exceptions noted. Patient with evidence of hemorrhagic shock secondary to lower GI bleed. I personally discussed the case with design studio consultant, Dr. King. He is going to reviewed the patient's chart and evaluate the patient. I also discussed the patient with the hospitalist, Dr. Miller. The patient may need to undergo repeat colonoscopy to localize bleeding. He underwent a CT abdomen without contrast which demonstrated large volume ascites, portal hypertension and possible nonspecific proctocolitis. A 3.1 cm infrarenal abdominal aortic aneurysm was seen. We will start the patient on cefepime and Flagyl empirically. He did r eceive 1 dose of ceftriaxone in the ER. Patient currently has 2 20-gauge IVs in his upper extremities and a left femoral vein central line. Will attempt placement of a larger bore IVs in the extremities for blood product administration and fluid resuscitation. He is currently receiving 2 units of blood and 1 unit of platelets. Vitamin K given in the emergency department for an INR 1.4 likely related to his chronic cirrhosis. Patient is not on any anticoagulants. We will check a lactate. We will have a low threshold to send the patient for an abdominal CTA. Patient may require transfer to a tertiary care center if bleeding is uncontrolled in order to undergo possible embolization by an interventional radiologist. We could also consider administration of tranexamic acid if further bleeding is seen. Patient also has renal failure likely related to hemorrhagic shock. We will consider paracentesis to relieve abdominal pressure once his blood pressure are improved. Continue to trend CBC every 6 hours. We will check a fibrinogen level. I have personally spent 41 minutes of critical care time in the direct management of this patient. This is a life/limb threatening event. This includes time spent evaluating patient, direct bedside care, chart review, placing orders, interpretation of diagnostic studies, discussion with consultants, patient, and/or family members regarding treatment decisions, as well as other required patient management activities. This time is exclusive of all separately billable procedures, and teaching time and separate from and in addition to any other critical care service time. History of Present Illness Reason for Consultation: GI Bleed Requesting Physician: Dr. Miller History of Present Illness Patient is a 70 year old male with PMHx Hepatitis C, Esophageal Varices, Cirrhosis of the liver, COPD, Crohn's Disease, Portal Vein Thrombosis, HLD, and presenting today after 3 days of worsening bright red blood per rectum. Patient notes that he has been having bright red blood per rectum for the past 5 months and that on 12/27/20 underwent upper and lower endoscopy in regards to his bleeding. He states that at that time it was noted his esophageal varices were not bleeding and that he had a 5mm polyp in his colon which was resected and clipped. He also had multiple medium-sized localized angiectasias with stigmata of recent bleeding found in the distal rectum that were coagulated with argon plasma. Patient notes that since the procedures he has had continued bright red blood per rectum, but that it acutely worsened in the past 3 days. He notes that this morning blood was "pouring out of me" and that he was feeling more dizzy and unsteady as he got up from his bed to his toilet. He states he also has shortness of breath associated with movement. Currently patient is lying in the emergency room s/p 2L NSS infusion, 1/2 unit PRBC, and protonix gtt. He notes that at this time he feels relatively comfortable and that he is not having the dizziness or shortness of breath he had prior. He is unsure if he still feels blood leaving his rectum. Patient is otherwise a relatively poor historian and is unable to relay medications that he takes nor his PMHx other than his liver cirrhosis. He denies alcohol use. Notes smoking 1-2 cigarettes daily. Notes history of cocaine abuse that he "went to rehab for in the 's and stopped." Allergies Allergy/AdvReac Type Severity Reaction Status Date / Time fentanyl Allergy Severe WENT Verified 01/06/21 10:59 CRAZY, HALLUCINATIONS, BIZARRE BEHAVIOR Home Medications Medication Instructions Recorded Confirmed Type Spiriva Respimat 2 puff INHALATION QAM 08/14/20 12/27/20 History cyanocobalamin (vitamin B-12) 500 mcg PO QAM 08/14/20 12/27/20 History [Vitamin B-12] ferrous sulfate 325 mg PO QAM 08/14/20 12/27/20 History finasteride [Proscar] 5 mg PO QAM 08/14/20 12/27/20 History folic acid 1 mg PO QAM 08/14/20 12/27/20 History metformin 500 mg PO BID 08/14/20 12/27/20 History tamsulosin 0.4 mg PO QAM 08/14/20 12/27/20 History atorvastatin 20 mg PO QAM 08/23/20 12/27/20 History budesonide-formoterol 2 puff INHALATION BID 08/23/20 12/27/20 History furosemide 20 mg PO QAM 08/23/20 12/27/20 History gabapentin 600 mg PO TID 08/23/20 12/27/20 History magnesium oxide 420 mg PO QAM 08/23/20 12/27/20 History meclizine 12.5 mg PO TID PRN 08/23/20 12/27/20 History melatonin 3 mg PO HS PRN 08/23/20 12/27/20 History multivitamin with minerals 1 tab PO QAM 08/23/20 12/27/20 History [Multiple Vitamin-Minerals] propranolol 20 mg PO BID #60 tab 08/28/20 12/27/20 Rx docusate sodium [Colace] 100 mg PO BID #60 cap 11/14/20 12/27/20 Rx nadolol 40 mg PO QAM 12/18/20 12/27/20 History Patient History Medical History (Updated 01/06/21 @ 12:56 by Jonh Karimi DO) Aortic aneurysm CAD (coronary artery disease) Follows with [facility] Chronic pain COPD (chronic obstructive pulmonary disease) Crohn's disease Crushing injury of chest 1970s Depression DM type 2 (diabetes mellitus, type 2) NIDDM Esophageal varices with banding x 3 (most recent approx 1 year ago) Hepatic encephalopathy history of 2019 History of CVA (cerebrovascular accident) approx 6 years ago; no residual History of hepatitis C History of nephrolithiasis History of prostate cancer dx 1 year ago; radiation History of subdural hematoma HTN (hypertension) Hyperlipemia Hypertension Malignant neoplasm of prostate Non-alcoholic cirrhosis Peripheral neuropathy Poor historian history obtained from staff member at [facility] and pt Tremor Surgical History H/O heart artery stent LAD stent - 2017 H/O inguinal hernia repair left side History of aortic aneurysm repair History of cardiac cath 2017 [facility] History of cholecystectomy History of cystoscopy History of esophageal surgery as an History of facial surgery as a child following injury History of hernia repair multiple Family History Other Family history non-contributory Social History Smoking Status: Unknown if ever smoked Tobacco Type: Cigarettes Hx Alcohol Use: No Hx Substance Use: No Preferred Language: Serbian Communication Ability: Effective Salesforce Trainer Required: No Beliefs That Will Affect Care: Faith Faith Beliefs: RELIGION Current Living Situation: Personal Care Facility Current Living Situation Comment: ASSISTED LIVING Feels Safe at Home: Yes Assistive Devices: Cane and Glasses Review of Systems Review of Systems: All systems reviewed & are unremarkable except as noted in Subjective Physical Exam Constitutional: + ill appearing and cooperative; no acute distress Eyes: normal visual riggs by confrontation, + conjunctival abnormality (pale bilateral ) and PERRL ENMT: external ear and nose normal, oropharynx normal Neck: trachea midline, no thyromegaly Respiratory: normal respiratory effort, lungs clear to auscultation Cardiovascular: Rate/Rhythm: regular rate and regular rhythm Heart Sounds: no murmur Gastrointestinal (Abdomen): Inspection/Auscultation: + abdomen distended and normal bowel sounds Percussion/Palpation: + abdomen tender (TTP in the RLQ ); no guarding and abdomen not rigid Rectal Exam: + heme positive stool No visible active bright red blood per rectum, though multiple clots noted on the bed and the patients legs. Skin: + turgor decreased Neurologic: PERRL, EOMI, accommodation nl, no face palsy, no dysarthria Psychiatric: Orientation: alert and oriented x 3 Results & Data Results & Data ([facility]) Vital Signs (Past 12 Hours) Vital Signs Temp Pulse Resp BP Pulse Ox 01/06/21 12:04 36.7 C 69 24 117/65 100 01/06/21 11:46 67 100 01/06/21 11:45 69 101/54 L 100 01/06/21 11:32 36.8 C 69 16 94/73 L 100 01/06/21 11:30 36.8 C 69 18 94/73 L 100 01/06/21 11:16 70 85/51 L 100 01/06/21 11:15 70 100 01/06/21 11:01 71 88/30 L 100 01/06/21 11:00 71 91 01/06/21 10:54 71 99/63 L 100 01/06/21 10:51 75 100 01/06/21 10:49 29 H 100 01/06/21 10:43 70 28 H 100/63 96 01/06/21 10:36 36.6 C 71 30 H 100/63 97 01/06/21 10:33 68 21 88/61 L 100 01/06/21 10:30 69 29 H 100 01/06/21 10:15 68 25 H 100 01/06/21 10:13 68 21 100 01/06/21 10:09 68 19 101/60 100 Resident Activity Tracking Resident Involvement: Resident Care Provided Care Provided: Adult Hospital Medicine
--- NOTE | 2021-01-06 13:13 | Electrocardiogram Report ---
Test Reason : Blood Pressure : / mmHG Vent. Rate : 067 BPM Atrial Rate : 067 BPM P-R Int : 140 ms QRS Dur : 082 ms QT Int : 446 ms P-R-T Axes : 040 056 018 degrees QTc Int : 471 ms Normal sinus rhythm Low voltage QRS Nonspecific ST abnormality Abnormal ECG When compared with ECG of 14-NOV-2020 09:14, Nonspecific T wave abnormality no longer evident in Anterior leads Confirmed by Juan Guerrero ([id number]) on 01/06/2021 1:13:36 PM Referred By: REFERRED SELF Confirmed By:Jose Guerrero
--- NOTE | 2021-01-06 13:35 | XRay Report ---
XR chest 1V portable CLINICAL HISTORY: GI bleed. COMPARISON STUDY: Chest radiograph November 14, 2020. FINDINGS: Lung volumes are normal. Lungs are clear. There is no pneumothorax or pleural effusion. Car diac size is normal. Mediastinal contours are normal. There is no evidence for pulmonary edema. IMPRESSION: No acute cardiopulmonary findings. ACT 112: Negative or not required by law. Electronically signed by: Ta Nash M.D. 01/06/2021 1:34 PM
--- NOTE | 2021-01-06 13:36 | XRay Report ---
KUB CLINICAL HISTORY: GI bleed. COMPARISON STUDY: None. FINDINGS: Interval placement of a left femoral central line is noted. Catheter tip projects over the left common iliac vessels. There are cholecystectomy clips. Bowel gas pattern is normal. Endoscopic c lip within the hepatic flexure of the colon is noted. IMPRESSION: 1. No evidence for a bowel obstruction. 2. Interval placement of a left femoral central line. ACT 112: Negative or not required by law. Electronically signed by: Ta Nash M.D. 01/06/2021 1:35 PM
--- NOTE | 2021-01-06 13:40 | Billing Data ---
Date of Service January 06, 2021 Coding Level of Care Code Critical Care 1st 30-74 mins Time Spent (min) 41
--- NOTE | 2021-01-06 13:42 | Gastrointestinal Consultation ---
Date of Consultation January 06, 2021 Assessment & Plan (1) Acute lower GI bleeding: Pt denies n/v and blood is bright red, favoring LGI bleed although cannot entirely exclude UGI bleeding. Differential for LGI bleeding includes ongoing bleeding from radiation proctitis and bleeding from polyp site. Pt already had a full colonoscoopy with prep 12/27/19 so goal now is to identify region of bowel that is bleeding. Plan unprepped colonoscopy now which will allow me to see region where blood present. If entire colon full of blood and/or blood noted in small intestine without clear source of bleeding then will do EGD also right after. Procedures and risks explained to patient which include but not limited to medication reaction, bleeding, perforation, aspiration, and missed lesions. acute blood loss anemia--transfuse prn ascites---in setting of active bleeding would recommend prophylactic abx to prevent SBP RLQ pain chronic---unclear etiology diarrhea chronic--unclear etiology History of Present Illness Reason for Consultation: GI bleed, acute blood loss anemia Requesting Physician: DR Miller History of Present Illness cc bleeding HPI Reviewed EMR and noted hep C, cirrhosis, portal HTN, portal vein thrombosis, varices, ascites, hx of hepatic encaphalopathy. Last inpt encounter with GI 08/2020. Reviewed admit then and he had RLQ pain and diarrhea chronic and melena. EGD then grade III varices and portal gastropathy. CT scan did not show cause of pain. He did not wish further workup and was DCed. Pt states he has been having ongoing RLQ pain, diarrhea. He also states he has been having rectal bleeding for 5 months. Reviewed procedure reports done by DR Hernandez 12/27/20. EGD showed grade II esoophageal varices and diffuse gastric erythema. Colonoscopy showed 5 mm polyp AC cold snared and clipped, actively bleeding distal rectum AVMs which were cauterized by APC (pt with hx of XRT to prostate). Pt states rectal bleeding which is bright red is worse over the last 10 days since EGD/colo. He does not complain of abd pain at present. INR 1.4, LFTs TB 1.1, lipase normal, WBC 13.6, Hgb 6.0 vs 11.4 on 11/14/20. CT a/p COPD, small HH, large ascites, cirrhosis, splenomegaly, 3.1 cm AAA, wall thickening AC and HF no change vs 10/2019. Allergies Allergy/AdvReac Type Severity Reaction Status Date / Time fentanyl Allergy Severe WENT Verified 01/06/21 10:59 CRAZY, HALLUCINATIONS, BIZARRE BEHAVIOR Home Medications Medication Instructions Recorded Confirmed Type Spiriva Respimat 2 puff INHALATION QAM 08/14/20 12/27/20 History cyanocobalamin (vitamin B-12) 500 mcg PO QAM 08/14/20 12/27/20 History [Vitamin B-12] ferrous sulfate 325 mg PO QAM 08/14/20 12/27/20 History finasteride [Proscar] 5 mg PO QAM 08/14/20 12/27/20 History folic acid 1 mg PO QAM 08/14/20 12/27/20 History metformin 500 mg PO BID 08/14/20 12/27/20 History tamsulosin 0.4 mg PO QAM 08/14/20 12/27/20 History atorvastatin 20 mg PO QAM 08/23/20 12/27/20 History budesonide-formoterol 2 puff INHALATION BID 08/23/20 12/27/20 History furosemide 20 mg PO QAM 08/23/20 12/27/20 History gabapentin 600 mg PO TID 08/23/20 12/27/20 History magnesium oxide 420 mg PO QAM 08/23/20 12/27/20 History meclizine 12.5 mg PO TID PRN 08/23/20 12/27/20 History melatonin 3 mg PO HS PRN 08/23/20 12/27/20 History multivitamin with minerals 1 tab PO QAM 08/23/20 12/27/20 History [Multiple Vitamin-Minerals] propranolol 20 mg PO BID #60 tab 08/28/20 12/27/20 Rx docusate sodium [Colace] 100 mg PO BID #60 cap 11/14/20 12/27/20 Rx nadolol 40 mg PO QAM 12/18/20 12/27/20 History Patient History Medical History Aortic aneurysm CAD (coronary artery disease) Follows with [facility] Chronic pain COPD (chronic obstructive pulmonary disease) Crohn's disease Crushing injury of chest 1970s Depression DM type 2 (diabetes mellitus, type 2) NIDDM Esophageal varices with banding x 3 (most recent approx 1 year ago) Hepatic encephalopathy history of - 2019 History of CVA (cerebrovascular accident) approx 6 years ago; no residual History of hepatitis C History of nephrolithiasis History of prostate cancer dx 1 year ago; radiation History of subdural hematoma HTN (hypertension) Hyperlipemia Hypertension Malignant neoplasm of prostate Non-alcoholic cirrhosis Peripheral neuropathy Poor historian history obtained from staff member at [facility] and pt Tremor Surgical History H/O heart artery stent LAD stent - 2018 H/O inguinal hernia repair left side History of aortic aneurysm repair History of cardiac cath 2018 [facility] History of cholecystectomy History of cystoscopy History of esophageal surgery as an History of facial surgery as a child following injury History of hernia repair multiple Family History Other Family history non-contributory Social History Smoking Status: Unknown if ever smoked Tobacco Type: Cigarettes Hx Alcohol Use: No Hx Substance Use: No Preferred Language: Guyanese Communication Ability: Effective 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: No Beliefs That Will Affect Care: Gnosticist Gnosticist Beliefs: CONGREGATIONAL Current Living Situation: Personal Care Facility Current Living Situation Comment: ASSISTED LIVING Feels Safe at Home: Yes Assistive Devices: Cane and Glasses Review of Systems Review of Systems: All systems reviewed & are unremarkable except as noted in HPI & below Physical Exam Constitutional: well developed and well nourished ENMT: external ears and nose normal Neck: trachea midline Respiratory: normal respiratory effort, lungs clear to auscultation Cardiovascular: Rate/Rhythm: regular rate and regular rhythm Gastrointestinal (Abdomen): abdomen distended but not tense, pos bs, mild guarding RLQ but no rebound, rectal with nurse present bright red blood, no normal stool present. Musculoskeletal: no cyanosis or clubbing, extremities motor strength 5/5 Skin: normal turgor Neurologic: PERRL, EOMI, accommodation nl, no face palsy, no dysarthria Psychiatric: A+Ox3, euthymic affect Results & Data ([facility]) Vital Signs (Past 12 Hours) Vital Signs Temp Pulse Resp BP Pulse Ox 01/06/21 12:32 70 20 01/06/21 12:13 67 110/62 01/06/21 12:04 36.7 C 69 24 117/65 100 01/06/21 12:01 69 117/65 100 01/06/21 12:00 68 100 01/06/21 11:46 67 100 01/06/21 11:45 69 101/54 L 100 01/06/21 11:32 36.8 C 69 16 94/73 L 100 01/06/21 11:30 36.8 C 69 18 94/73 L 100 01/06/21 11:16 70 85/51 L 100 01/06/21 11:15 70 100 01/06/21 11:01 71 88/30 L 100 01/06/21 11:00 71 91 01/06/21 10:54 71 99/63 L 100 01/06/21 10:51 75 100 01/06/21 10:49 29 H 100 01/06/21 10:43 70 28 H 100/63 96 01/06/21 10:36 36.6 C 71 30 H 100/63 97 01/06/21 10:33 68 21 88/61 L 100 01/06/21 10:30 69 29 H 100 01/06/21 10:15 68 25 H 100 01/06/21 10:13 68 21 100 01/06/21 10:09 68 19 101/60 100
[2021-01-06] MEDS ORDERED: ICU PROTOCOL FOR HYPERGLYCEMIA PRN (13:46)
[2021-01-06] MEDS ORDERED: OCTREOTIDE ACETATE 50 MCG in SYRINGE 9.5 ML IV STA (13:46)
[2021-01-06] MEDS ORDERED: PATIENT'S HEIGHT AND/OR WEIGHT NEEDED SCH (14:00)
[2021-01-06 14:10] LABS: Basophils # (auto) 0.06 K/uL (0-0.2); Basophils % (auto) 0.6 %; Eosinophils # (auto) 0.35 K/uL (0-0.5); Eosinophils % (auto) 3.2 %; Hematocrit (blood only) 21.4 % (42-52); Hemoglobin 7.2 g/dL (14.0-18.0); Immature Granulocytes # (auto) 0.13 K/uL (0.00-0.02); Immature Granulocytes % (auto) 1.2 %; Lymphocytes # (auto) 1.27 K/uL (1.2-3.4); Lymphocytes % (auto) 11.8 %; Mean Corpuscular Hemoglobin 30.9 pg (25-34); Mean Corpuscular Hgb Conc 33.6 g/dL (32-36); Mean Corpuscular Volume 91.8 fL (80-100); Mean Platelet Volume 10.8 fL (7.4-10.4); Monocytes # (auto) 1.45 K/uL (0.11-0.59); Monocytes % (auto) 13.4 %; Neutrophils # (auto) 7.54 K/uL (1.4-6.5); Neutrophils % (auto) 69.8 %; Platelet Count 144 K/uL (130-400); RDW Coefficient of Variation 16.7 % (11.5-14.5); RDW Standard Deviation 54.9 fL (36.4-46.3); Red Blood Count 2.33 M/uL (4.7-6.1)
[2021-01-06] MEDS ORDERED: LIDOCAINE 2% 2 ML VIAL/AMP(20MG/ML) INFIL ONE (14:12)
[2021-01-06] MEDS ORDERED: SUCCINYLCHOLINE CHLORIDE 20 MG/ML 10 ML VIAL IV ONE (14:13)
[2021-01-06] MEDS ORDERED: PROPOFOL IV EMULSION 10 MG/ML 20 ML VIAL IV ONE (14:13)
--- NOTE | 2021-01-06 14:14 | Anesthesiology Consultation ---
Date of Service January 06, 2021 Assessment & Plan Chart Review Chart Review: Acceptable Risk for Surgery Consults Requested none ASA [id number] Proposed Anesthesia Anesthesia Type: General Risk / Benefits Reviewed With: PT / POA / Parent / Guardian, Accepts Plan and Informed Consent Obtained Additional Comments: RSI +/- [place] History Surgery Operation Date: 01/06/21 12:30 Proposed Procedures p Esophagogastroduodenoscopy - Kolby Estrada Height/Weight Height: 6 ft Weight: 97 kg Allergies Allergy/AdvReac Type Severity Reaction Status Date / Time fentanyl Allergy Severe WENT Verified 01/06/21 10:59 CRAZY, HALLUCINATIONS, BIZARRE BEHAVIOR Medications Home Medications Medication Instructions Recorded Confirmed Last Taken Spiriva Respimat 2 puff INHALATION QAM 08/14/20 12/27/20 12/27/20 09:30 cyanocobalamin (vitamin B-12) 500 mcg PO QAM 08/14/20 12/27/20 12/26/20 16:30 [Vitamin B-12] ferrous sulfate 325 mg PO QAM 08/14/20 12/27/20 12/26/20 16:30 finasteride [Proscar] 5 mg PO QAM 08/14/20 12/27/20 12/26/20 16:30 folic acid 1 mg PO QAM 08/14/20 12/27/20 12/26/20 16:30 metformin 500 mg PO BID 08/14/20 12/27/20 08/14/20 tamsulosin 0.4 mg PO QAM 08/14/20 12/27/20 12/26/20 16:30 atorvastatin 20 mg PO QAM 08/23/20 12/27/20 12/26/20 16:30 budesonide-formoterol 2 puff INHALATION BID 08/23/20 12/27/20 12/27/20 09:30 furosemide 20 mg PO QAM 08/23/20 12/27/20 12/26/20 16:30 gabapentin 600 mg PO TID 08/23/20 12/27/20 12/26/20 16:30 magnesium oxide 420 mg PO QAM 08/23/20 12/27/20 12/26/20 16:30 meclizine 12.5 mg PO TID PRN 08/23/20 12/27/20 12/26/20 16:30 melatonin 3 mg PO HS PRN 08/23/20 12/27/20 Unknown multivitamin with minerals 1 tab PO QAM 08/23/20 12/27/20 12/26/20 16:30 [Multiple Vitamin-Minerals] propranolol 20 mg PO BID #60 tab 08/28/20 12/27/20 12/26/20 16:30 docusate sodium [Colace] 100 mg PO BID #60 cap 11/14/20 12/27/20 12/26/20 16:30 nadolol 40 mg PO QAM 12/18/20 12/27/20 12/26/20 16:30 Active Medications Generic Name Dose Route Start Last Admin Trade Name Freq PRN Reason Stop Dose Admin Pantoprazole Sodium 40 mg/ 100 mls @ 20 mls/hr 01/06/21 11:27 01/06/21 12:35 Dextrose IV 02/05/21 11:26 8 mg/hr Q5H ELGIN 20 mls/hr Administration 8 MG/HR NPO Date Last Intake of Fluids: 01/06/21 Date Last Intake of Solids: 01/06/21 Past Medical History Medical History Aortic aneurysm CAD (coronary artery disease) Follows with [facility] Chronic pain COPD (chronic obstructive pulmonary disease) Crohn's disease Crushing injury of chest 1970s Depression DM type 2 (diabetes mellitus, type 2) NIDDM Esophageal varices with banding x 3 (most recent approx 1 year ago) Hepatic encephalopathy history of 2019 History of CVA (cerebrovascular accident) approx 6 years ago; no residual History of hepatitis C History of nephrolithiasis History of prostate cancer dx 1 year ago; radiation History of subdural hematoma HTN (hypertension) Hyperlipemia Hypertension Malignant neoplasm of prostate Non-alcoholic cirrhosis Peripheral neuropathy Poor historian history obtained from staff member at [facility] and pt Tremor Exercise / Class Metabolic Activity III < 4 Walking/Shop/Light housework Past Family History Family History Other Family history non-contributory Past Surgical History Surgical History H/O heart artery stent LAD stent - 2017 H/O inguinal hernia repair left side History of aortic aneurysm repair History of cardiac cath 2018 [facility] History of cholecystectomy History of cystoscopy History of esophageal surgery as an History of facial surgery as a child following injury History of hernia repair multiple Past Anesthesia History No Hx of Anesthesia Complications and No Family Hx of Anesthesia Complications History of PONV No Hx of PONV and No Hx of Motion Sickness Social History Smoking Status: Unknown if ever smoked tobacco type: cigarettes Hx Alcohol Use: No Hx Substance Use: No Physical Exam Vital Signs Last Vital Signs Temp 36.7 C 01/06/21 12:04 Pulse 65 01/06/21 13:30 Resp 23 01/06/21 13:30 BP 105/82 01/06/21 13:24 Pulse Ox 100 01/06/21 13:30 ENMT Mouth: + edentulous; no TMJ abnormality Thyromental Distance: > or= 3.5 Finger Breadths Mallampati Class: II Neck normal visual inspection and trachea midline; neck extension not limited Respiratory normal respiratory effort Auscultation: lungs clear to auscultation bilaterally Cardiovascular Rate/Rhythm: regular rate and regular rhythm Heart Sounds: no murmur Musculoskeletal Spine: normal cervical ROM Extremities: full ROM of extremities Neurologic moves all extremities Psychiatric Orientation: alert and oriented x 3 Testing Laboratory Results 01/06/21 14:04 01/06/21 10:19 PT 13.7 Seconds (9.0-12.0) H 01/06/21 10:19 INR 1.4 (0.9-1.1) H 01/06/21 10:19 APTT 25.5 Seconds (21.0-31.0) 01/06/21 10:19 Blood Type Cancelled 01/06/21 10:45 Antibody Screen Cancelled 01/06/21 10:45 Electrocardiogram Date: 01/06/21 Findings: + NSR @ (67) and + NSST changes Chest X-Ray Date: 01/06/21 Findings: + NAD Echocardiogram Date: 07/31/20 EF: 50-55 LV Function: normal RWMA: + none Valvular Disease: + no significant valvular disease
[2021-01-06] MEDS ORDERED: ePHEDrine sulfate 50 MG/ML AMP ONE (14:15)
[2021-01-06] MEDS ORDERED: PHENYLEPHRINE HCL 10 MG/ML VIAL ONE (14:15)
[2021-01-06] MEDS ORDERED: SODIUM CHLORIDE 0.9% INJ 10 ML VIAL ONE (14:15)
[2021-01-06 14:26] LABS: Polychromasia 1+
[2021-01-06] MEDS ORDERED: ePHEDrine sulfate 50 MG/ML AMP IV PRN (14:26)
[2021-01-06] MEDS ORDERED: ONDANSETRON INJ 2 MG/ML 2 ML VIAL IV PRN (14:26)
[2021-01-06] MEDS ORDERED: ATROPINE SULFATE 0.1 MG/ML 10ML SYR IV PRN (14:26)
[2021-01-06] MEDS ORDERED: MoRPHine SULFATE 10 MG/ML CARP/VIAL IV PRN (14:26)
[2021-01-06] MEDS: metroNIDAZOLE 500 MG/100 ML BAG IV SCH ×2 (14:32→21:41)
[2021-01-06 14:42] LABS: Fibrinogen 98 mg/dl (184-400)
--- NOTE | 2021-01-06 15:28 | Post Operative Brief Note ---
Immediate Post Op Note v1 Date of Surgery January 06, 2021 Pre & Post Diagnosis Operation Date: 01/06/21 12:30 Pre-Op Diagnosis: ACUTE GI BLEED Post-Op Diagnosis: ACUTE GI BLEED I identified the patient and participated in the time-out.: Yes Procedure Operation Date: 01/06/21 12:30 Actual Procedures p Colonoscopy,control of bleeding - Kolby Estrada Exam to splenic flexure where solid stool yellow/brown in color encountered. Fresh blood noted in rectum. Ulcerations noted from APC 10 days ago. Visible vessel on one ulcer started to do APC and pulsatile bleeding noted. Epinephrine injected and then 2 clips placed with control of bleeding. Surgeon Kolby Estrada Immigration Consultant see full report Estimated Blood Loss 75 Findings Consistent with Post-Op Diagnosis
--- NOTE | 2021-01-06 15:41 | GI REPORT ---
Patient Name: Alfredo Willis Procedure Date: 01/06/2021 2:36 PM Date of : 1950 Admit Type: Inpatient Age: 70 Gender: Male Attending MD: Kolby Estrada MD Procedure: Colonoscopy Providers: Kolby Estrada MD Referring MD: Referred Self, Chris Miller Md Indications: Rectal bleeding Medicines: General Anesthesia Complications: No immediate complications. Estimated Blood Loss: 75 ml Procedure: Pre-Anesthesia Assessment: - The risks and benefits of the procedure and the sedation options and risks were discussed with the patient. All questions were answered and informed consent was obtained. - Patient identification and proposed procedure were verified prior to the procedure by the physician, the nurse and the production line solderer. The procedure was verified in the procedure room. After I obtained informed consent, the scope was passed under direct vision. Throughout the procedure, the patient's blood pressure, pulse, and oxygen saturations were monitored continuously. The Scope was introduced through the anus with the intention of advancing to the cecum. The scope was advanced to the splenic flexure before the procedure was aborted. Medications were given. The colonoscopy was technically difficult and complex due to excessive bleeding. Successful completion of the procedure was aided by controlling the bleeding. The patient tolerated the procedure well. Procedure and risks explained to patient which include but not limited to med reaction, bleeding, perforation, aspiration and missed lesions. Judicious gas insufflation and gas removal done on the way out. The lumen always well visualized when advancing the scope. Washes and suctioning used as needed for good visuzlization of mucosa. Prep was good. Retroflexion in the rectum to look at the distal rectum and anal canal done. Findings: Proximal extent of scope reached was splenic flexure where solid yellow/brown stool and no blood encountered. Red blood was found in the rectum initially but no active bleeding. A few ulcers were found in the rectum from previous APC done 12/27/2020. Stigmata of recent bleeding were present (visible vessel). Used APC 1.2 Liters 20 loja on visible vessel on one of the ulcers with spurting blood from arterial bleeder resulting. Injected 4 ml of 1:10,000 epinephrine and then 2 clips to control bleeding. No bleeding at end of procedure. The exam was otherwise without abnormality on direct and retroflexion views. Impression: - Proximal extent of scope reached was splenic flexure where solid yellow/brown stool and no blood encountered. - Blood in the rectum. - A few ulcers in the rectum from previous APC. - Used APC 1.2 Liters 20 loja on visible vessel on one of the ulcers with spurting blood from arterial bleeder resulting. Injected 4 ml of 1:10,000 epinephrine and then 2 clips to control bleeding. No bleeding at end of procedure. - The examination was otherwise normal on direct and retroflexion views. - No specimens collected. Recommendation: - Return patient to ICU for ongoing care. - Clear liquid diet for now. Transfuse prn. No need for protonix drip or octreotide as this is not a variceal bleed or bleeding from peptic disease. Kolby Estrada M.D. Kolby Estrada MD 01/06/2021 3:40:49 PM This report has been signed electronically. Note Initiated On: 01/06/2021 2:36 PM Number of Addenda: 0 I attest to the content of the Intraoperative Record and orders documented therein, exceptions below {[id number]}
--- NOTE | 2021-01-06 15:58 | Anesthesiology Progress Note ---
Date of Service January 06, 2021 Anesthesia Post Procedure Vital Signs Vital Signs: Temp Pulse Pulse Resp BP BP Pulse Ox 01/06/21 15:53 36.4 C L 60 20 90/47 L 99 01/06/21 15:51 36.4 C L 74 20 98/61 L 100 01/06/21 15:40 36.6 C 61 23 81/51 L 100 01/06/21 15:38 36.6 C 61 21 83/44 L 96 01/06/21 15:37 36.6 C 62 21 61/40 L 96 01/06/21 13:58 65 20 115/57 L 100 01/06/21 13:53 36.5 C 67 20 115/57 L 100 01/06/21 13:46 65 01/06/21 13:30 65 23 100 01/06/21 13:24 70 23 105/82 100 01/06/21 13:21 71 13 97 01/06/21 13:15 66 23 97/73 L 100 01/06/21 13:11 68 21 92/56 L 100 01/06/21 13:05 67 17 85/69 L 100 01/06/21 13:03 67 22 78/56 L 97 01/06/21 13:01 67 19 100 01/06/21 13:00 67 19 100 01/06/21 12:46 69 21 92/78 L 100 01/06/21 12:45 68 21 100 01/06/21 12:34 68 22 132/59 L 100 01/06/21 12:32 70 20 01/06/21 12:13 67 110/62 01/06/21 12:04 36.7 C 69 24 117/65 100 01/06/21 12:01 69 117/65 100 01/06/21 12:00 68 100 01/06/21 11:46 67 100 01/06/21 11:45 69 101/54 L 100 01/06/21 11:32 36.8 C 69 16 94/73 L 100 01/06/21 11:30 36.8 C 69 18 94/73 L 100 01/06/21 11:16 70 85/51 L 100 01/06/21 11:15 70 100 01/06/21 11:01 71 88/30 L 100 01/06/21 11:00 71 91 01/06/21 10:54 71 99/63 L 100 01/06/21 10:51 75 100 01/06/21 10:49 29 H 100 01/06/21 10:43 70 28 H 100/63 96 01/06/21 10:36 36.6 C 71 30 H 100/63 97 01/06/21 10:33 68 21 88/61 L 100 01/06/21 10:30 69 29 H 100 01/06/21 10:15 68 25 H 100 01/06/21 10:13 68 21 100 01/06/21 10:09 68 19 101/60 100 Transfer of Care Handoff Completed per policy Notes Mental Status: alert / awake / arousable Patient Amnestic to Procedure: Yes Nausea / Vomiting: adequately controlled Pain: adequately controlled Airway Patency, RR, SpO2: stable & adequate BP & HR: stable & adequate Hydration State: stable & adequate Anesthetic Complications: no major complications apparent and Pt Satisfied with anesthetic care Notes: pt required phenylephrine 1100mcg during and post case. To ICU. BP improved with infusion of #4prbc and IVF. Pt aaox3 w/o issue. Pt signed out to ICU nursing with stable BP x15min.
[2021-01-06] MEDS: CEFEPIME 2,000 MG in SYRINGE 0 ML IV SCH (16:17)
[2021-01-06 18:55] LABS: Appearance Urine Cloudy (Clear); Bacteria Urine Automated Negative (Negative); Blood Urine Negative (Negative); Color Urine Dark Yellow; Epithelial Cell Urine Auto >30 /lpf (0-5); Glucose Urine UA Negative (Negative); Ketones Urine Trace (Negative); Leukocyte Esterase Urine Negative (Negative); Nitrite Urine Negative (Negative); Protein Urine Negative (Negative); RBC Urine Automated 0-4 /hpf (0-4); Specific Gravity Urine 1.025 (1.000-1.030); Urobilinogen Urine Negative (Negative)
[2021-01-06 19:13] LABS: Bilirubin Urine 1+ (Negative)
[2021-01-06 19:25] LABS: Amorphous Sediment Urine Present (None Prsent); Cast Urine Automated 0 /lpf (0-5)
[2021-01-06 19:52] LABS: Basophils # (auto) 0.06 K/uL (0-0.2); Basophils % (auto) 0.4 %; Eosinophils # (auto) 0.72 K/uL (0-0.5); Eosinophils % (auto) 5.1 %; Hematocrit (blood only) 26.6 % (42-52); Hemoglobin 9.2 g/dL (14.0-18.0); Immature Granulocytes # (auto) 0.14 K/uL (0.00-0.02); Lymphocytes # (auto) 2.06 K/uL (1.2-3.4); Lymphocytes % (auto) 14.6 %; Mean Corpuscular Hemoglobin 30.8 pg (25-34); Mean Corpuscular Hgb Conc 34.6 g/dL (32-36); Mean Platelet Volume 10.5 fL (7.4-10.4); Monocytes # (auto) 1.84 K/uL (0.11-0.59); Neutrophils # (auto) 9.32 K/uL (1.4-6.5); Neutrophils % (auto) 65.9 %; Platelet Count 128 K/uL (130-400); RDW Coefficient of Variation 16.2 % (11.5-14.5); RDW Standard Deviation 51.6 fL (36.4-46.3); Red Blood Count 2.99 M/uL (4.7-6.1); White Blood Count 14.14 K/uL (4.8-10.8)
[2021-01-06] MEDS: PANTOprazole 40 MG in SYRINGE 0 ML IV SCH (21:41)
[2021-01-06] MEDS ORDERED: NORMOSOL-R 1,000 ML IV SCH (22:00)
[2021-01-07 00:31] LABS: Hematocrit (blood only) 21.7 % (42-52); Hemoglobin 7.4 g/dL (14.0-18.0)
[2021-01-07 00:59] LABS: BUN Creatinine Ratio 10.4 (10-20); Calcium 6.9 mg/dl (8.5-10.1); Creatinine Clr Calc Pharmacy 28.6 ml/min; Est GFR (African American) 24.3; Potassium 4.5 mmol/L (3.5-5.1)
[2021-01-07] MEDS ORDERED: CALCIUM GLUCONATE 10% 2,000 MG in SODIUM CHLORIDE 0.9% 50 ML IV ONE (01:21)
[2021-01-07 05:12] LABS: Hematocrit (blood only) 23.4 % (42-52); Mean Corpuscular Hemoglobin 30.5 pg (25-34); Mean Corpuscular Hgb Conc 34.2 g/dL (32-36); Mean Corpuscular Volume 89.3 fL (80-100); RDW Coefficient of Variation 16.5 % (11.5-14.5); RDW Standard Deviation 52.6 fL (36.4-46.3); Red Blood Count 2.62 M/uL (4.7-6.1); White Blood Count 11.42 K/uL (4.8-10.8)
[2021-01-07 05:17] LABS: INR 1.5 (0.9-1.1); Prothrombin Time 14.5 Seconds (9.0-12.0)
[2021-01-07 05:23] LABS: Albumin Level 1.8 gm/dl (3.4-5.0); BUN Creatinine Ratio 10.2 (10-20); Calcium 7.3 mg/dl (8.5-10.1); Creatinine Clr Calc Pharmacy 28.2 ml/min; Est GFR (African American) 23.9; Est GFR (Non-African American) 20.6; Magnesium 1.8 mg/dl (1.8-2.4); Potassium 4.4 mmol/L (3.5-5.1)
[2021-01-07] MEDS: metroNIDAZOLE 500 MG/100 ML BAG IV SCH ×3 (06:13→21:04)
[2021-01-07 06:17] LABS: Mean Platelet Volume 10.7 fL (7.4-10.4); Platelet Count 90 K/uL (130-400)
[2021-01-07 06:18] LABS: Basophils # (auto) 0.05 K/uL (0-0.2); Basophils % (auto) 0.4 %; Eosinophils # (auto) 0.92 K/uL (0-0.5); Eosinophils % (auto) 8.1 %; Immature Granulocytes # (auto) 0.06 K/uL (0.00-0.02); Immature Granulocytes % (auto) 0.5 %; Lymphocytes % (auto) 12.3 %; Monocytes # (auto) 1.39 K/uL (0.11-0.59); Monocytes % (auto) 12.2 %; Neutrophils % (auto) 66.5 %; Platelet Estimate Decreased (Normal)
[2021-01-07 06:25] LABS: Albumin Globulin Ratio 0.6 (0.9-2); Bilirubin,Total 1.7 mg/dl (0.2-1); Globulin 3.1 gm/dl (2.5-4.0); Phosphorus 3.1 mg/dl (2.5-4.9); Total Protein 4.9 gm/dl (6.4-8.2)
--- NOTE | 2021-01-07 08:21 | Critical Care Progress Note ---
Date of Service January 07, 2021 Assessment & Plan (1) Acute lower GI bleedin-year-old male with past medical history of cirrhosis, portal hypertension, prostate cancer status post radiation and Crohn's disease presenting to the hospital due to lower GI bleed and hemorrhagic shock. He is status post clipping to an artery in his ascending colon. He is status post 4 units of packed red blood cells yesterday. He is hemodynamically stable. His renal function is slowly recovering. He does have massive ascites and we will attempt a paracentesis today. I will send the fluid for cell counts and cultures. Continue cefepime and Flagyl for the possibility of intra-abdominal infection given the presence of thickening noted in the colon. Continue Protonix twice daily. We will hold on any further fluid administration. Replacing electrolytes as appropriate. Continue monitoring hemoglobin closely. Hold chemical DVT prophylaxis. Continue SCDs. Stable to transfer to the floor with telemetry. (2) Abdominal ascites: (3) Crohn's disease: (4) Hypotension due to blood loss: (5) Liver cirrhosis: (6) Hepatitis C: (7) Acute kidney injury: Admission and Anticipated Discharge Date Admission Date: January 06, 2021 Subjective Patient seen and examined this morning. He is complaining of abdominal pain and pain around the Rausch catheter site. He received 4 units of blood yesterday. He is hemodynamically stable at this present time. No fevers or chills. No nausea or vomiting. Review of Systems Review of Systems: All systems reviewed & are unremarkable except as noted in HPI & below Physical Exam Constitutional: + ill appearing and + frail appearing Eyes: PERRL, conjunctivae normal, anicteric sclerae ENMT: external ear and nose normal, oropharynx normal Neck: normal visual inspection Respiratory: Diminished lung sounds at the bases. Cardiovascular: Rate/Rhythm: regular rate and regular rhythm Gastrointestinal (Abdomen): Distended abdomen with mild tenderness in the right lower quadrant. Positive fluid wave. Hypoactive bowel sounds. Musculoskeletal: no cyanosis or clubbing, extremities motor strength 5/5 Skin: no rashes, warm and dry Neurologic: PERRL, EOMI, accommodation nl, no face palsy, no dysarthria Psychiatric: A+Ox3, euthymic affect Results & Data Results & Data ([facility]) Vital Signs (Past 12 Hours) Vital Signs Temp Pulse Resp BP Pulse Ox 01/07/21 05:48 70 20 89/58 L 93 01/07/21 04:48 68 23 104/60 92 01/07/21 03:48 71 16 105/68 94 01/07/21 03:35 97.7 F 01/07/21 02:48 77 16 89/58 L 94 01/07/21 01:48 72 16 90/58 L 93 01/07/21 00:48 69 22 98/59 L 93 01/06/21 23:54 71 13 91/53 L 94 01/06/21 22:49 97.9 F 01/06/21 22:48 71 21 93/60 L 96 01/06/21 22:46 65 01/06/21 21:49 68 22 92/57 L 95 01/06/21 21:25 21 87/57 L 96 01/06/21 20:25 23 92/67 L 95 01/06/21 20:22 97.7 F I reviewed the vital signs, labs and imaging Coding Level of Care Code 52008 Subs Hosp Care [facility] 3 Diagnoses Acute lower GI bleeding K92.2 Abdominal ascites R18.8 Ascites type: other type Crohn's disease K50.90 Hypotension due to blood loss I95.89 Liver cirrhosis K74.60; R18.8 Ascites presence: with ascites Hepatic cirrhosis type: unspecified hepatic cirrhosis Hepatitis C B19.20 Acute kidney injury N17.9 (1) Abdominal ascites Ascites type: other type Qualified Code(s): R18.8 - Other ascites (2) Liver cirrhosis Ascites presence: with ascites Hepatic cirrhosis type: unspecified hepatic cirrhosis Qualified Code(s): K74.60 - Unspecified cirrhosis of liver; R18.8 - Other ascites
[2021-01-07] MEDS: PANTOprazole 40 MG in SYRINGE 0 ML IV SCH ×2 (08:26→19:56)
[2021-01-07] MEDS ORDERED: MAGNESIUM SULFATE / D5W 1 GM/100 ML BAG IV ONE (08:30)
--- NOTE | 2021-01-07 08:55 | Hospitalist Progress Note ---
Date of Service January 07, 2021 Assessment & Plan (1) Acute gastrointestinal bleeding: Acute blood loss anemia with hemoglobin 6.0 from 11.4 in October. Recent colonoscopy performed 10 days ago with one 5 mm polyp removed in distal ascending colon multiple recently bleeding colonic angiectasias treated with argon plasma coagulation colonoscopy with Dr. Estrada performed 01/06: Ulcerations noted from APC 10 days ago. Visible vessel on one ulcer started to do APC and pulsatile bleeding noted. Epinephrine injected and then 2 clips placed with control of bleeding. Hb was 8.0 this morning, 7.0 on repeat this afternoon, blood pressure stable he is status post 4 units of PRBC and 1 unit of FFP continue in ICU for close monitoring tolerating clear liquids (2) Hypotension due to blood loss: Fluid resuscitation in the emergency room with 2L NSS bolus while awaiting packed RBCs. now s/p 4 units of PRBC BP is better today, consistently > 100 systolic, likely his baseline given his cirrhosis (3) Esophageal varices: Grade 2 esophageal varices noted on recent EGD 10 days ago no hematemesis source of bleeding noted on colonoscopy so bleeding varices unlikely (4) Liver cirrhosis: Hepatitis C, posttreatment (unknown details regarding this) History of hepatic encephalopathy however current mentation normal even with low blood pressure and acute blood loss anemia. with ascites, Dr. Haque performed US guided paracentesis on 01/07, 4 liters drained, fluid sent for analysis (5) Hepatitis C: (6) BPH (benign prostatic hyperplasia): Hold finasteride pending stability and blood pressure. Rausch catheter insertion. (7) Acute kidney failure: Secondary to hypovolemia and low hemoglobin. no signs of obstruction Cr slightly improved from 3.1 to 2.94, making urine, K is 4.4 (8) Diabetes: Historical diagnosis. HbA1c 4.8 in August 2020. Glucose 152 on arrival likely acutely rasied with stress. Monitor BSG ACHS with insulin sliding scale for correction factor only. would recommend stopping Metformin (9) Aortic aneurysm: Notable history of this (10) Peripheral neuropathy: Chronic pain possibly from lumbar degenerative disease versus diabetes. Restart gabapentin when able to take p.o. medication. (11) Malignant neoplasm of prostate: Follows with [place] [facility]. Outside note reports having Lupron injections. (12) CAD (coronary artery disease): Follows with cardiology in [place]. Previous stents with last 9 drug- eluting stent placed to mid LAD in 2018. Unable to take antiplatelets due to GI bleeds. Restart beta-klaudia and atorvastatin when able to take p.o. meds and blood pressure /GI bleed stable. (13) DVT prophylaxis: SCDs Chemical anticoagulation contraindicated Admission and Anticipated Discharge Date Admission Date: January 06, 2021 Subjective patient laying in bed comfortably, no new issues this morning, he had some flatus, no BM, no bleeding he denies any chest pain, dyspnea, fever/chills tolerating some clear liquids Hb is 8.0 this morning, BP stable reviewed chart, had colonoscopy yesterday that showed bleeding APC, injected with epinephrine and clipped no further signs of bleeding Cr is 2.94, BUN 30, CO2 17 Review of Systems Review of Systems: All systems reviewed & are unremarkable except as noted in Subjective Constitutional: no fever, no chills, no sweats, no fatigue and no weakness Respiratory: no cough and no dyspnea Cardiovascular: + edema (1 + pitting); no chest pain Gastrointestinal: no abdominal pain, no nausea, no vomiting, no constipation and no diarrhea/loose stools Physical Exam Constitutional: well developed, well nourished and comfortable; no acute distress Neck: trachea midline, no thyromegaly Respiratory: normal respiratory effort, lungs clear to auscultation Cardiovascular: Rate/Rhythm: regular rate and regular rhythm Heart Sounds: normal S1 and normal S2; no murmur Vessels: no JVD Extremities: normal capillary refill and + edema (1+ pitting bilaterally) Gastrointestinal (Abdomen): Inspection/Auscultation: + abdomen distended and normal bowel sounds Percussion/Palpation: abdomen soft and + ascites; abdomen nontender Musculoskeletal: no cyanosis or clubbing, extremities motor strength 5/5 Skin: no rashes, warm and dry Neurologic: patellar DTR's 2+ bilat, sensation intact and PERRL, EOMI, accommodation nl, no face palsy, no dysarthria Psychiatric: A+Ox3, euthymic affect Lymphatic: no cervical or axillary lymphadenopathy Results & Data Results & Data ([facility]) Vital Signs (Past 12 Hours) Vital Signs Temp Pulse Resp BP Pulse Ox 01/07/21 05:48 70 20 89/58 L 93 01/07/21 04:48 68 23 104/60 92 01/07/21 03:48 71 16 105/68 94 01/07/21 03:35 36.5 C 01/07/21 02:48 77 16 89/58 L 94 01/07/21 01:48 72 16 90/58 L 93 01/07/21 00:48 69 22 98/59 L 93 01/06/21 23:54 71 13 91/53 L 94 01/06/21 22:49 36.6 C 01/06/21 22:48 71 21 93/60 L 96 01/06/21 22:46 65 01/06/21 21:49 68 22 92/57 L 95 01/06/21 21:25 21 87/57 L 96 Laboratory Results Laboratory Results - last 24 hr 01/06/21 01/06/21 01/06/21 10:19 10:19 10:19 WBC 13.59 H RBC 1.96 L Hgb 6.0 L* Hct 18.2 L* MCV 92.9 MCH 30.6 MCHC 33.0 RDW Std Deviation 64.6 H RDW Coeff of Anderson 19.3 H Plt Count 195 MPV 10.8 H Immature Gran % (Auto) 1.1 Neut % (Auto) 65.5 Lymph % (Auto) 17.0 [place] % (Auto) 10.0 Eos % (Auto) 5.8 Baso % (Auto) 0.6 Neut # (Auto) 8.90 H Lymph # (Auto) 2.31 [place] # (Auto) 1.36 H Eos # (Auto) 0.79 H Baso # (Auto) 0.08 Immature Gran # (Auto) 0.15 H Platelet Estimate Polychromasia Poikilocytosis Present Anisocytosis Present PT 13.7 H INR 1.4 H APTT 25.5 PTT Ratio 1.0 Fibrinogen Sodium Potassium Chloride Carbon Dioxide Anion Gap BUN Creatinine Est Cr Clr Drug Dosing Est GFR ( Amer) Est GFR (Non-Af Amer) BUN/Creatinine Ratio Glucose POC Glucose Lactate Calcium Phosphorus Magnesium Total Bilirubin AST ALT Alkaline Phosphatase Troponin I Total Protein Albumin Globulin Albumin/Globulin Ratio Lipase Urine Color Urine Appearance Urine pH Ur Specific [place] Urine Protein Urine Glucose (UA) Urine Ketones Urine Blood Urine Nitrite Urine Bilirubin Urine Urobilinogen Ur Leukocyte Esterase Urine WBC (Auto) Urine RBC (Auto) U Hyaline Cast (Auto) U Epithel Cells (Auto) Urine Bacteria (Auto) Ur Renal Epithelial Cell Amorphous Sediment Nasal Screen MRSA (PCR) COVID-19 Eval Order SARS-CoV-2, RNA, NAAT Blood Type O Positive Blood Type Recheck Antibody Screen NEGATIVE Crossmatch See Detail 01/06/21 01/06/21 01/06/21 10:19 10:45 10:45 WBC RBC Hgb Hct MCV MCH MCHC RDW Std Deviation RDW Coeff of [place] Plt Count MPV Immature Gran % (Auto) Neut % (Auto) Lymph % (Auto) [place] % (Auto) Eos % (Auto) Baso % (Auto) Neut # (Auto) Lymph # (Auto) [place] # (Auto) Eos # (Auto) Baso # (Auto) Immature Gran # (Auto) Platelet Estimate Polychromasia Poikilocytosis Anisocytosis PT INR APTT PTT Ratio Fibrinogen Sodium 142 Potassium 4.9 Chloride 115 H Carbon Dioxide 17 L Anion Gap 10.0 BUN 29 H Creatinine 3.10 H Est Cr Clr Drug Dosing Not Reportable Est GFR ( Amer) 22.4 Est GFR (Non-Af Amer) 19.3 BUN/Creatinine Ratio 9.4 L Glucose 152 H POC Glucose Lactate Calcium 8.3 L Phosphorus Magnesium Total Bilirubin 1.1 H AST 32 ALT 19 Alkaline Phosphatase 112 Troponin I < 0.015 Total Protein 5.4 L Albumin 1.8 L Globulin 3.6 Albumin/Globulin Ratio 0.5 L Lipase 290 Urine Color Urine Appearance Urine pH Ur Specific [place] Urine Protein Urine Glucose (UA) Urine Ketones Urine Blood Urine Nitrite Urine Bilirubin Urine Urobilinogen Ur Leukocyte Esterase Urine WBC (Auto) Urine RBC (Auto) U Hyaline Cast (Auto) U Epithel Cells (Auto) Urine Bacteria (Auto) Ur Renal Epithelial Cell Amorphous Sediment Nasal Screen MRSA (PCR) COVID-19 Eval Order SARS-CoV-2, RNA, NAAT Blood Type Cancelled Blood Type Recheck O Positive Antibody Screen Cancelled Crossmatch 01/06/21 01/06/21 01/06/21 12:30 12:30 12:59 WBC RBC Hgb Hct MCV MCH MCHC RDW Std Deviation RDW Coeff of [place] Plt Count MPV Immature Gran % (Auto) Neut % (Auto) Lymph % (Auto) [place] % (Auto) Eos % (Auto) Baso % (Auto) Neut # (Auto) Lymph # (Auto) [place] # (Auto) Eos # (Auto) Baso # (Auto) Immature Gran # (Auto) Platelet Estimate Polychromasia Poikilocytosis Anisocytosis PT INR APTT PTT Ratio Fibrinogen Sodium Potassium Chloride Carbon Dioxide Anion Gap BUN Creatinine Est Cr Clr Drug Dosing Est GFR ( Amer) Est GFR (Non-Af Amer) BUN/Creatinine Ratio Glucose POC Glucose Lactate 3.5 H* Calcium Phosphorus Magnesium Total Bilirubin AST ALT Alkaline Phosphatase Troponin I Total Protein Albumin Globulin Albumin/Globulin Ratio Lipase Urine Color Urine Appearance Urine pH Ur Specific [place] Urine Protein Urine Glucose (UA) Urine Ketones Urine Blood Urine Nitrite Urine Bilirubin Urine Urobilinogen Ur Leukocyte Esterase Urine WBC (Auto) Urine RBC (Auto) U Hyaline Cast (Auto) U Epithel Cells (Auto) Urine Bacteria (Auto) Ur Renal Epithelial Cell Amorphous Sediment Nasal Screen MRSA (PCR) COVID-19 Eval [facility] SARS-CoV-2, RNA, NAAT NEGATIVE Blood Type Blood Type Recheck Antibody Screen Crossmatch 01/06/21 01/06/21 01/06/21 14:00 14:04 14:04 WBC 10.80 RBC 2.33 L Hgb 7.2 L Hct 21.4 L MCV 91.8 MCH 30.9 MCHC 33.6 RDW Std Deviation 54.9 H RDW Coeff of [place] 16.7 H Plt Count 144 MPV 10.8 H Immature Gran % (Auto) 1.2 Neut % (Auto) 69.8 Lymph % (Auto) 11.8 [place] % (Auto) 13.4 Eos % (Auto) 3.2 Baso % (Auto) 0.6 Neut # (Auto) 7.54 H Lymph # (Auto) 1.27 [place] # (Auto) 1.45 H Eos # (Auto) 0.35 Baso # (Auto) 0.06 Immature Gran # (Auto) 0.13 H Platelet Estimate Polychromasia 1+ Poikilocytosis Anisocytosis PT INR APTT PTT Ratio Fibrinogen 98 L* Sodium Potassium Chloride Carbon Dioxide Anion Gap BUN Creatinine Est Cr Clr Drug Dosing Est GFR ( Amer) Est GFR (Non-Af Amer) BUN/Creatinine Ratio Glucose POC Glucose Lactate Calcium Phosphorus Magnesium Total Bilirubin AST ALT Alkaline Phosphatase Troponin I Total Protein Albumin Globulin Albumin/Globulin Ratio Lipase Urine Color Urine Appearance Urine pH Ur Specific [place] Urine Protein Urine Glucose (UA) Urine Ketones Urine Blood Urine Nitrite Urine Bilirubin Urine Urobilinogen Ur Leukocyte Esterase Urine WBC (Auto) Urine RBC (Auto) U Hyaline Cast (Auto) U Epithel Cells (Auto) Urine Bacteria (Auto) Ur Renal Epithelial Cell Amorphous Sediment Nasal Screen MRSA (PCR) Negative COVID-19 Eval Order SARS-CoV-2, RNA, NAAT Blood Type Blood Type Recheck Antibody Screen Crossmatch 01/06/21 01/06/21 01/06/21 15:36 15:42 16:45 WBC RBC Hgb Hct MCV MCH MCHC RDW Std Deviation RDW Coeff of [place] Plt Count MPV Immature Gran % (Auto) Neut % (Auto) Lymph % (Auto) [place] % (Auto) Eos % (Auto) Baso % (Auto) Neut # (Auto) Lymph # (Auto) [place] # (Auto) Eos # (Auto) Baso # (Auto) Immature Gran # (Auto) Platelet Estimate Polychromasia Poikilocytosis Anisocytosis PT INR APTT PTT Ratio Fibrinogen Sodium Potassium Chloride Carbon Dioxide Anion Gap BUN Creatinine Est Cr Clr Drug Dosing Est GFR ( Amer) Est GFR (Non-Af Amer) BUN/Creatinine Ratio Glucose POC Glucose 143 H 139 H Lactate 2.8 H* Calcium Phosphorus Magnesium Total Bilirubin AST ALT Alkaline Phosphatase Troponin I Total Protein Albumin Globulin Albumin/Globulin Ratio Lipase Urine Color Urine Appearance Urine pH Ur Specific [place] Urine Protein Urine Glucose (UA) Urine Ketones Urine Blood Urine Nitrite Urine Bilirubin Urine Urobilinogen Ur Leukocyte Esterase Urine WBC (Auto) Urine RBC (Auto) U Hyaline Cast (Auto) U Epithel Cells (Auto) Urine Bacteria (Auto) Ur Renal Epithelial Cell Amorphous Sediment Nasal Screen MRSA (PCR) COVID-19 Eval Order SARS-CoV-2, RNA, NAAT Blood Type Blood Type Recheck Antibody Screen Crossmatch 01/06/21 01/06/21 01/07/21 18:20 19:26 00:21 WBC 14.14 H RBC 2.99 L Hgb 9.2 L 7.4 L Hct 26.6 L 21.7 L MCV 89.0 MCH 30.8 MCHC 34.6 RDW Std Deviation 51.6 H RDW Coeff of Anderson 16.2 H Plt Count 128 L MPV 10.5 H Immature Gran % (Auto) 1.0 Neut % (Auto) 65.9 Lymph % (Auto) 14.6 [place] % (Auto) 13.0 Eos % (Auto) 5.1 Baso % (Auto) 0.4 Neut # (Auto) 9.32 H Lymph # (Auto) 2.06 [place] # (Auto) 1.84 H Eos # (Auto) 0.72 H Baso # (Auto) 0.06 Immature Gran # (Auto) 0.14 H Platelet Estimate Polychromasia Poikilocytosis Anisocytosis PT INR APTT PTT Ratio Fibrinogen Sodium Potassium Chloride Carbon Dioxide Anion Gap BUN Creatinine Est Cr Clr Drug Dosing Est GFR ( Amer) Est GFR (Non-Af Amer) BUN/Creatinine Ratio Glucose POC Glucose Lactate Calcium Phosphorus Magnesium Total Bilirubin AST ALT Alkaline Phosphatase Troponin I Total Protein Albumin Globulin Albumin/Globulin Ratio Lipase Urine Color Dark Yellow Urine Appearance Cloudy A Urine pH 5.0 Ur Specific [place] 1.025 Urine Protein Negative Urine Glucose (UA) Negative Urine Ketones Trace H Urine Blood Negative Urine Nitrite Negative Urine Bilirubin 1+ H Urine Urobilinogen Negative Ur Leukocyte Esterase Negative Urine WBC (Auto) 1-5 Urine RBC (Auto) 0-4 U Hyaline Cast (Auto) 0 U Epithel Cells (Auto) >30 H Urine Bacteria (Auto) Negative Ur Renal Epithelial Cell Not Reportable Amorphous Sediment Present A Nasal Screen MRSA (PCR) COVID-19 Eval Order SARS-CoV-2, RNA, NAAT Blood Type Blood Type Recheck Antibody Screen Crossmatch 01/07/21 01/07/21 01/07/21 00:21 00:21 00:27 WBC RBC Hgb Hct MCV MCH MCHC RDW Std Deviation RDW Coeff of [place] Plt Count MPV Immature Gran % (Auto) Neut % (Auto) Lymph % (Auto) [place] % (Auto) Eos % (Auto) Baso % (Auto) Neut # (Auto) Lymph # (Auto) [place] # (Auto) Eos # (Auto) Baso # (Auto) Immature Gran # (Auto) Platelet Estimate Polychromasia Poikilocytosis Anisocytosis PT INR APTT PTT Ratio Fibrinogen Sodium 143 Potassium 4.5 Chloride 118 H Carbon Dioxide 17 L Anion Gap 8.0 BUN 30 H Creatinine 2.90 H Est Cr Clr Drug Dosing 28.6 Est GFR ( Amer) 24.3 Est GFR (Non-Af Amer) 21.0 BUN/Creatinine Ratio 10.4 Glucose 134 H POC Glucose 144 H Lactate 2.0 Calcium 6.9 L D Phosphorus Magnesium Total Bilirubin AST ALT Alkaline Phosphatase Troponin I Total Protein Albumin Globulin Albumin/Globulin Ratio Lipase Urine Color Urine Appearance Urine pH Ur Specific [place] Urine Protein Urine Glucose (UA) Urine Ketones Urine Blood Urine Nitrite Urine Bilirubin Urine Urobilinogen Ur Leukocyte Esterase Urine WBC (Auto) Urine RBC (Auto) U Hyaline Cast (Auto) U Epithel Cells (Auto) Urine Bacteria (Auto) Ur Renal Epithelial Cell Amorphous Sediment Nasal Screen MRSA (PCR) COVID-19 Eval Order SARS-CoV-2, RNA, NAAT Blood Type Blood Type Recheck Antibody Screen Crossmatch 01/07/21 01/07/21 01/07/21 04:38 04:38 04:38 WBC 11.42 H RBC 2.62 L Hgb 8.0 L Hct 23.4 L MCV 89.3 MCH 30.5 MCHC 34.2 RDW Std Deviation 52.6 H RDW Coeff of [place] 16.5 H Plt Count 90 L MPV 10.7 H Immature Gran % (Auto) 0.5 Neut % (Auto) 66.5 Lymph % (Auto) 12.3 [place] % (Auto) 12.2 Eos % (Auto) 8.1 Baso % (Auto) 0.4 Neut # (Auto) 7.60 H Lymph # (Auto) 1.40 [place] # (Auto) 1.39 H Eos # (Auto) 0.92 H Baso # (Auto) 0.05 Immature Gran # (Auto) 0.06 H Platelet Estimate Decreased L Polychromasia Poikilocytosis Anisocytosis PT 14.5 H INR 1.5 H APTT PTT Ratio Fibrinogen Sodium 143 Potassium 4.4 Chloride 117 H Carbon Dioxide 17 L Anion Gap 9.0 BUN 30 H Creatinine 2.94 H Est Cr Clr Drug Dosing 28.2 Est GFR ( Amer) 23.9 Est GFR (Non-Af Amer) 20.6 BUN/Creatinine Ratio 10.2 Glucose 120 H POC Glucose Lactate Calcium 7.3 L Phosphorus 3.1 Magnesium 1.8 Total Bilirubin 1.7 H D AST 33 ALT 19 Alkaline Phosphatase 72 Troponin I Total Protein 4.9 L Albumin 1.8 L Globulin 3.1 Albumin/Globulin Ratio 0.6 L Lipase Urine Color Urine Appearance Urine pH Ur Specific [place] Urine Protein Urine Glucose (UA) Urine Ketones Urine Blood Urine Nitrite Urine Bilirubin Urine Urobilinogen Ur Leukocyte Esterase Urine WBC (Auto) Urine RBC (Auto) U Hyaline Cast (Auto) U Epithel Cells (Auto) Urine Bacteria (Auto) Ur Renal Epithelial Cell Amorphous Sediment Nasal Screen MRSA (PCR) COVID-19 Eval Order SARS-CoV-2, RNA, NAAT Blood Type Blood Type Recheck Antibody Screen Crossmatch Medications Administered Current Inpatient Medications Cefepime HCl 2,000 mg/ Syringe 20 mls @ 5 mls/min IV Q24H ELGIN; Protocol Stop: 01/16/21 14:29 Last Admin: 01/06/21 16:17 Dose: 5 mls/min Documented by: Metronidazole (Flagyl) 500 mg in 100 mls @ 100 mls/hr IV Q8H ELGIN; Protocol Stop: 01/16/21 13:59 Last Infusion: 01/07/21 07:31 Dose: Infused Documented by: Pantoprazole Sodium 40 mg/ (Syringe) 10 mls @ 5 mls/min IV BID ELGIN Stop: 02/05/21 20:59 Last Admin: 01/07/21 08:26 Dose: 5 mls/min Documented by: Magnesium Sulfate/Dextrose (Magnesium Sulfate / D5w) 1 gm in 100 mls @ 50 mls/hr IV 0830 ONE Stop: 01/07/21 10:29 Last Admin: 01/07/21 08:29 Dose: 50 mls/hr Documented by: Miscellaneous ([facility] Protocol For Hyperglycemia) 1 ea N/A PRN PRN; Protocol PRN Reason: Hyperglycemia Protocol Stop: 01/08/21 13:45 PG Care Time/CCT Total # of Minutes Spent Total Time Spent with Patient: Total time spent is greater than 50% in coordination of care (as documented) at patient's floor/unit and/or counseling patient: Coding Level of Care Code 52870 Subseq Hosp Care Lvl 3 Diagnoses Acute gastrointestinal bleeding K92.2 Hypotension due to blood loss I95.89 Esophageal varices I85.00 Liver cirrhosis K74.60; R18.8 Ascites presence: with ascites Hepatic cirrhosis type: unspecified hepatic cirrhosis Hepatitis C B19.20 BPH (benign prostatic hyperplasia) N40.0 Acute kidney failure N17.9 Diabetes E13.69 Diabetes mellitus complication status: with other specified complication Diabetes mellitus terminal operator insulin use: unspecified terminal operator insulin use status Diabetes mellitus type: other specified (including JC) Aortic aneurysm I71.9 Peripheral neuropathy G62.9 Malignant neoplasm of prostate C61 CAD (coronary artery disease) I25.10 DVT prophylaxis Z29.9 (1) Diabetes Diabetes mellitus complication status: with other specified complication Diabetes mellitus fdc insulin use: unspecified fdc insulin use status Diabetes mellitus type: other specified (including JC) Qualified Code(s): E13.69 - Other specified diabetes mellitus with other specified complication (2) Liver cirrhosis Ascites presence: with ascites Hepatic cirrhosis type: unspecified hepatic cirrhosis Qualified Code(s): K74.60 - Unspecified cirrhosis of liver; R18.8 - Other ascites
[2021-01-07 10:54] LABS: Appearance Peritoneal Fluid CLEAR; Basophils, Fluid 0 %; Color Peritoneal Fluid PALE YELLOW; Eosinophils, Fluid 0 %; Lymphocytes, Fluid 22 %; Mono,Macrophage,Mesothelial 70 %; Neutrophils, Fluid 8 %; RBC Peritoneal Fluid (A) < 3000 /uL; WBC Peritoneal Fluid (A) 34 /ul (0-300)
[2021-01-07] MEDS ORDERED: ALBUMIN 5% 250 ML IV ONE (11:15)
--- NOTE | 2021-01-07 11:15 | Procedure Note ---
Procedure Note Date of Service January 07, 2021 Note Consent was obtained from the patient prior to the procedure. Indications, risks, and benefits were explained at length. PROCEDURE SUMMARY: A time-out was performed. My hands were washed immediately prior to the procedure. I wore a surgical cap, mask with protective eyewear and sterile gloves throughout the procedure. The area was cleansed and draped in usual sterile fashion using chlorhexidine scrub. Anesthesia was achieved with 1% lidocaine. The left lower quadrant of the abdomen was prepped and draped in a sterile fashion using chlorhexidine scrub. 1% lidocaine was used to numb the skin, soft tissue and peritoneum. The paracentesis catheter was inserted and advanced with negative pressure until aravind colored fluid was aspirated. Approximately 60 mL of ascitic fluid was collected and sent for laboratory analysis. The catheter was then connected to the vaccutainer and 4 liters of additional ascitic fluid were drained. The catheter was removed and no leaking was noted. A bandaid was placed over the puncture wound. The patient tolerated the procedure well without any immediate complications Coding CPT Codes Skin and Soft Tissue - Skin and Soft Tissue: 58132 Abd paracentesis w/ imaging ([id number]) [facility] [place] Procedure Codes (Charges) Skin and Soft Tissue Skin and Soft Tissue: 15557 Abd paracentesis w/ imaging
[2021-01-07 13:28] LABS: Hematocrit (blood only) 20.8 % (42-52)
[2021-01-07] MEDS: ALBUMIN 5% 250 ML IV SCH ×2 (14:12→14:44)
[2021-01-07] MEDS: CEFEPIME 2,000 MG in SYRINGE 0 ML IV SCH (14:13)
[2021-01-07] MEDS ORDERED: SODIUM CHLORIDE 0.9% 250 ML IV PRN (14:22)
[2021-01-07] MEDS ORDERED: FUROSEMIDE 40 MG in SYRINGE 0 ML IV ONE (14:22)
--- NOTE | 2021-01-07 14:27 | Gastroenterology Progress Note ---
Date of Service January 07, 2021 Assessment & Plan (1) Acute lower GI bleeding: resolved post clippin of rectal arterial bleeder---continue clear liquid another 24 hours acute blood loss anemia--transfuse prn--H and H drifting but no GI bleeding ascites- WBC normal in fluid so no evidence of SBP RLQ pain chronic---improved post ascites removal diarrhea chronic--per patient but had solid stool on colo renal dysfunction---per attending. Admission and Anticipated Discharge Date Admission Date: January 06, 2021 Subjective CC f/u GI bleeding HPI No further GI bleeding since clipping of rectal arterial bleeder. Pt states RLQ pain better since paracentesis with 4 L of fluid removed today. Ascites fluid WBC 34 so no SBP. Hgb drifting down wasa 7.0 at 1259. Pt has received total of 4 Units PRBCs this admit. Per nursing poor urine output. Physical Exam Respiratory: normal respiratory effort, lungs clear to auscultation Gastrointestinal (Abdomen): abdomen pos bs, moderate distension, subjective RLQ pain, No guarding nor rebound Results & Data ([facility]) Vital Signs (Past 12 Hours) Vital Signs Temp Pulse Resp BP Pulse Ox 01/07/21 12:02 36.4 C L 01/07/21 10:33 66 16 102/62 97 01/07/21 10:18 67 14 112/61 95 01/07/21 10:04 70 17 110/59 L 97 01/07/21 09:57 70 25 H 106/69 98 01/07/21 09:51 69 16 108/67 98 01/07/21 09:47 68 18 105/67 98 01/07/21 09:43 69 24 115/65 98 01/07/21 09:38 71 21 115/61 99 01/07/21 09:34 71 12 115/66 99 01/07/21 08:49 71 23 131/103 H 98 01/07/21 08:00 36.5 C 70 01/07/21 07:49 16 96/61 L 94 01/07/21 06:48 69 19 97/58 L 91 01/07/21 05:48 70 20 89/58 L 93 01/07/21 04:48 68 23 104/60 92 01/07/21 03:48 71 16 105/68 94 01/07/21 03:35 36.5 C 01/07/21 02:48 77 16 89/58 L 94
[2021-01-07] MEDS ORDERED: FUROSEMIDE 40 MG/4 ML VIAL IV ONE (15:00)
--- NOTE | 2021-01-07 16:04 | XRay Report ---
XR chest 1V portable HISTORY: 70 years-old Male cxr acute generalized abdominal pain with distention COMPARISON: Chest radiograph 01/06/2021 TECHNIQUE: Portable AP view of the chest FINDINGS: Cardiomediastinal and hilar silhouettes are within normal limits. Coronary arterial stent. A skinfold projects over the lateral right lung base. Linear subsegmental scarring/atelectasis of the left midl opal and left lung base. No pneumothorax, pleural effusion, airspace consolidation or overt pulmonary edema. Calcified plaque of the thoracic aorta. The bones appear grossly intact. IMPRESSION: No acute process. ACT 112: Negative or not required by law. The above report was generated using voice recognition software. It may contain grammatical, syntax o r spelling errors. Electronically signed by: Cesar Reyna M.D. 01/07/2021 4:03 PM
--- NOTE | 2021-01-07 16:09 | XRay Report ---
KUB HISTORY: Acute generalized abdominal pain with distention abdominal pain COMPARISON: KUB 01/06/2021 FINDINGS: Left femoral central venous catheter appears unchanged positioning. There are 2 surgical cl ips project over the midline pelvis at the level of the pubic symphysis. Nondilated air and fluid-norah led loops of small bowel. Cholecystectomy. No renal calculi. No ureteral calculi. No pneumoperitoneu m or pneumatosis. No fracture. IMPRESSION: Nonobstructive bowel gas pattern. ACT 112: Negative or not required by law. The above report was generated using voice recognition software. It may contain grammatical, syntax o r spelling errors. Electronically signed by: Cesar Reyna M.D. 01/07/2021 4:08 PM
--- NOTE | 2021-01-07 16:34 | Electrocardiogram Report ---
Test Reason : Blood Pressure : / mmHG Vent. Rate : 072 BPM Atrial Rate : 072 BPM P-R Int : 128 ms QRS Dur : 088 ms QT Int : 510 ms P-R-T Axes : 029 063 096 degrees QTc Int : 558 ms Poor data quality, interpretation may be adversely affected Normal sinus rhythm Nonspecific ST and T wave abnormality Abnormal ECG When compared with ECG of 06-JAN-2021 10:23, ST more depressed Anterior leads T wave inversion now evident in Anterior leads QT has lengthened Confirmed by Juan Guerrero ([id number]) on 01/07/2021 4:33:42 PM Referred By: REFERRED SELF Confirmed By:Jose Guerrero
--- NOTE | 2021-01-07 16:51 | Communication Note ---
Date of Service: January 07, 2021 Performed a 4 L paracentesis earlier in the day without any significant complications during the procedure. The patient has been having intermittent epi sodes of hypotension and hypoxia since mid afternoon. We checked a lactic acid level which was 4. His hemoglobin checked at 1 PM was 7.0. He received 1 additional unit of packed RBCs given his ongoing hypotension and recent acute blood loss anemia. During the transfusion, he became short of breath and hypotensive briefly. Chest x-ray was obtained which did not demonstrate any acute process. Abdominal flatplate was obtained as well given some increasing abdominal distention. The abdominal film was also largely negative. We have added 2.5 mg of midodrine, 3 times a day given his hypotension. He has also been having decreasing urine output. He received 2 boluses of 5% albumin. I have consulted nephrology given his ongoing renal failure. I obtained a urine sodium and urine osmolality which appear consistent with prerenal azotemia or possibly an HRS type picture. However, given his shortness of breath after receiving blood products, I did give him 40 mg of IV Lasix. He has been having decreasing urine output throughout the day. I am going to check a BMP. His his serum bicarbonate was 17 this morning. If he continues to demonstrate signs of nonanion gap acidosis, I will start the patient on a bicarbonate drip. Diagnoses these include: -nonoliguric renal failure, possibly HRS -Acute blood loss anemia with hemorrhagic shock -Lactic acidosis secondary to the above -Non-anion gap acidosis secondary to the above -Massive ascites secondary to cirrhosis from hepatitis C Coding Level of Care Code Critical Care 1st 30-74 mins Time Spent (min) 46
[2021-01-07 17:07] LABS: BUN Creatinine Ratio 9.7 (10-20); Calcium 7.4 mg/dl (8.5-10.1); Creatinine Clr Calc Pharmacy 27.6 ml/min; Est GFR (African American) 22.7; Est GFR (Non-African American) 19.6; Potassium 4.1 mmol/L (3.5-5.1)
[2021-01-07] MEDS: MIDODRINE HCL 2.5 MG TAB PO SCH (17:25)
[2021-01-07 19:56] LABS: Hemoglobin 7.9 g/dL (14.0-18.0)
[2021-01-07] MEDS: SODIUM BICARBONATE 8.4% 150 MEQ in WATER, STERILE 1,000 ML IV SCH (19:56)
[2021-01-07 20:14] LABS: BUN Creatinine Ratio 9.4 (10-20); Calcium 7.1 mg/dl (8.5-10.1); Est GFR (African American) 22.1; Est GFR (Non-African American) 19.1; Phosphorus 2.9 mg/dl (2.5-4.9)
[2021-01-07] MEDS ORDERED: STAT IV Infusion **Titration per Protocol STA (20:56)
[2021-01-07] MEDS: NOREPINEPHRINE/D5W 8 MG/508 ML BAG IV SCH (21:04)
[2021-01-08 00:02] LABS: Hematocrit (blood only) 23.7 % (42-52); Hemoglobin 8.1 g/dL (14.0-18.0)
[2021-01-08 00:23] LABS: BUN Creatinine Ratio 9.1 (10-20); Calcium 7.3 mg/dl (8.5-10.1); Creatinine Clr Calc Pharmacy 27.9 ml/min; Est GFR (Non-African American) 19.9; Phosphorus 2.7 mg/dl (2.5-4.9); Potassium 3.8 mmol/L (3.5-5.1)
[2021-01-08 04:45] LABS: Hematocrit (blood only) 23.3 % (42-52); Mean Corpuscular Hemoglobin 30.3 pg (25-34); Mean Corpuscular Hgb Conc 34.3 g/dL (32-36); Mean Corpuscular Volume 88.3 fL (80-100); RDW Coefficient of Variation 16.8 % (11.5-14.5); RDW Standard Deviation 53.6 fL (36.4-46.3); Red Blood Count 2.64 M/uL (4.7-6.1); White Blood Count 8.95 K/uL (4.8-10.8)
[2021-01-08 04:56] LABS: INR 1.5 (0.9-1.1); Prothrombin Time 15.1 Seconds (9.0-12.0)
[2021-01-08 05:05] LABS: Albumin Level 2.2 gm/dl (3.4-5.0); BUN Creatinine Ratio 9.5 (10-20); Calcium 7.3 mg/dl (8.5-10.1); Creatinine Clr Calc Pharmacy 28.6 ml/min; Est GFR (African American) 23.5; Est GFR (Non-African American) 20.3; Magnesium 1.9 mg/dl (1.8-2.4); Potassium 3.8 mmol/L (3.5-5.1)
[2021-01-08 05:08] LABS: Albumin Globulin Ratio 0.8 (0.9-2); Bilirubin,Total 1.6 mg/dl (0.2-1); Globulin 2.8 gm/dl (2.5-4.0)
[2021-01-08 05:23] LABS: Basophils # (auto) 0.05 K/uL (0-0.2); Basophils % (auto) 0.6 %; Eosinophils # (auto) 0.77 K/uL (0-0.5); Eosinophils % (auto) 8.6 %; Immature Granulocytes # (auto) 0.06 K/uL (0.00-0.02); Immature Granulocytes % (auto) 0.7 %; Lymphocytes # (auto) 1.16 K/uL (1.2-3.4); Mean Platelet Volume 10.3 fL (7.4-10.4); Monocytes # (auto) 1.45 K/uL (0.11-0.59); Monocytes % (auto) 16.2 %; Neutrophils # (auto) 5.46 K/uL (1.4-6.5); Neutrophils % (auto) 60.9 %; Platelet Count 90 K/uL (130-400); Platelet Estimate Decreased (Normal)
[2021-01-08] MEDS: SODIUM BICARBONATE 8.4% 150 MEQ in WATER, STERILE 1,000 ML IV SCH ×2 (05:51→18:38)
[2021-01-08] MEDS: metroNIDAZOLE 500 MG/100 ML BAG IV SCH ×3 (05:52→21:18)
[2021-01-08] MEDS: MIDODRINE HCL 2.5 MG TAB PO SCH ×3 (08:16→17:18)
[2021-01-08] MEDS: PANTOprazole 40 MG in SYRINGE 0 ML IV SCH ×2 (08:32→20:48)
[2021-01-08 09:58] LABS: iSTAT Blood Urea Nitrogen 28 mg/dl (7-18); iSTAT Carbon Dioxide 17 mmol/L (24-31); iSTAT Chloride 110 mmol/L (101-112); iSTAT Creatinine 3.2 mg/dl (0.6-1.3); iSTAT Hematocrit 16 % (42-52); iSTAT Hemoglobin 5.4 g/dl (14.0-18.0); iSTAT Ionized Calcium 1.17 mmol/l (1.12-1.32); iSTAT Potassium 4.9 mmol/L (3.3-5.0); iSTAT Sodium 140 mmol/L (135-144)
--- NOTE | 2021-01-08 10:12 | Nephrology Progress Note ---
Date of Service January 08, 2021 Assessment & Plan (1) Acute kidney injury: * Nonoliguric AMMY due to multiple factors including acute LGI bleeding w/ anemia, hypotension and 3rd spacing of fluid due to cirrhosis/portal hypertension. Baseline Cr has been 1.2 * 01/06/21 urinalysis was negative for granular casts * 01/06/[address] was negative for hydronephrosis * Cr trending down following blood transfusion and stabilization of BP * Recommend blood transfusion to keep Hgb 8.0 or above, pressor support to maintain MAP 65 or greater * Provide Albumin 25 g IV q8 hours x 48 hours * Monitor PRP, recheck urine sediment * Hold diuretic therapy for now as patient has been intravascularly volume contracted * Hold Octreotide as Cr is trending down with conservative management * Consider stopping NaHCO3 gtt once serum bicarbonate 22 or greater (2) Acute lower GI bleeding: * h/o radiation proctitis * Rectal vessel clipped by GI. No further LGI bleeding (3) Abdominal ascites: * s/p 4 L paracentesis 01/07/21 (4) Liver cirrhosis: * Hep C + * Documented portal HTN w/ esophageal varices Admission and Anticipated Discharge Date Admission Date: January 06, 2021 Subjective NPE - AMMY/CKD Mr. Willis is a 70 year old white male who is seen at the request of Dr. Haque for evaluation of AMMY/CKD. Medical records in the EMR were reviewed this morning and are summarized as follows: Mr. Willis has CKD w/ baseline Cr 1.2. His medical history is complex and includes ASCVD, aortic aneurysm, HTN, COPD, AODM, peripheral neuropathy, Hep C +, cirrhosis w/ portal HTN, esophageal varices s/p banding x3, prostate CA s/p radiation therapy, radiation proctitis. On 01/06/21 Mr. Willis was transported to [facility] ED for evaluation of rectal bleeding. Evaluation revealed SBP 70's, Hgb 6 and Cr 3.13. He was transfused 4 U PRBC and admitted to the ICU for ongoing medical management. Levophed gtt was started for BP support. Colonoscopy revealed rectal ulcer w/ visible vessel that was actively bleeding. Vessel was clipped. There has been no further LGI bleeding. Patient was noted to have tense ascites. 4 L paracentesis performed. Post procedure course complicated by hypotension requiring IV albumin and addition of oral Midodrine. Mr. Willis was evaluated in the ICU. He awoke to voice and would follow verbal commands. Mr. Willis currently denies fever, angina, dyspnea, abdominal pain or uremic symptoms Review of Systems Constitutional: no fever Eyes: no problem reported Respiratory: no cough and no dyspnea Cardiovascular: no chest pain and no palpitations Gastrointestinal: no abdominal pain Physical Exam Constitutional: not in distress Eyes: PERRL, conjunctivae normal, anicteric sclerae Neck: trachea midline, no thyromegaly Respiratory: normal respiratory effort, lungs clear to auscultation Cardiovascular: Rate/Rhythm: regular rate and regular rhythm Vessels: no JVD Gastrointestinal (Abdomen): Percussion/Palpation: + ascites and + abdomen firm; abdomen nontender and no guarding Neurologic: awake; not confused Results & Data ([facility]) Vital Signs (Past 12 Hours) Vital Signs Temp Pulse Resp BP Pulse Ox 01/08/21 09:00 82 20 97 01/08/21 08:47 94 H 33 H 119/79 97 01/08/21 08:35 81 25 H 94/72 L 98 01/08/21 08:20 85 29 H 139/121 H 96 01/08/21 08:00 36.5 C 87 30 H 95 01/08/21 07:50 87 27 H 132/81 96 01/08/21 07:19 81 11 L 99/67 L 93 01/08/21 07:04 82 20 94/66 L 94 01/08/21 07:00 81 19 92 01/08/21 06:34 77 17 98/69 L 92 01/08/21 06:04 78 17 114/69 92 01/08/21 05:55 77 19 106/63 94 01/08/21 05:49 86 16 80/65 L 93 01/08/21 05:34 78 17 86/61 L 93 01/08/21 05:19 79 17 106/70 92 01/08/21 05:04 81 11 L 99/74 L 91 01/08/21 04:34 81 3 L 88/64 L 92 01/08/21 04:04 76 2 L 103/70 93 01/08/21 03:52 37.1 C 01/08/21 03:34 70 16 115/68 91 01/08/21 03:04 72 15 107/70 92 01/08/21 02:34 72 9 L 113/72 95 01/08/21 02:04 72 13 113/69 93 01/08/21 02:00 37.0 C 01/08/21 01:34 73 17 111/66 94 01/08/21 01:04 72 19 96/65 L 92 01/08/21 00:04 72 15 106/62 95 01/07/21 23:49 72 19 103/66 93 01/07/21 23:19 74 18 109/69 92 01/07/21 23:05 70 01/07/21 22:49 73 18 96/65 L 92 01/07/21 22:34 72 17 102/64 93 01/07/21 22:19 72 18 126/72 93 Laboratory Tests 01/06/21 01/06/21 01/07/21 10:19 18:20 14:00 WBC Hgb 6.0 L* Hct Plt Count 195 Sodium Potassium Chloride Carbon Dioxide BUN Creatinine Glucose Lactate Calcium Albumin Urine Color Dark Yellow Urine Appearance Cloudy A Urine pH 5.0 Ur Specific [place] 1.025 Urine Protein Negative Urine Glucose (UA) Negative Urine Blood Negative Urine WBC (Auto) 1-5 Urine RBC (Auto) 0-4 U Hyaline Cast (Auto) 0 U Epithel Cells (Auto) >30 H Urine Bacteria (Auto) Negative Ur Renal Epithelial Cell Not Reportable Urine Osmolality 423 L Ur Random Sodium 01/07/21 01/07/21 01/07/21 14:00 19:45 23:50 WBC Hgb Hct Plt Count Sodium Potassium Chloride Carbon Dioxide BUN Creatinine 3.13 H 3.03 H Glucose Lactate Calcium Albumin Urine Color Urine Appearance Urine pH Ur Specific [place] Urine Protein Urine Glucose (UA) Urine Blood Urine WBC (Auto) Urine RBC (Auto) U Hyaline Cast (Auto) U Epithel Cells (Auto) Urine Bacteria (Auto) Ur Renal Epithelial Cell Urine Osmolality Ur Random Sodium 10 01/07/21 01/08/21 01/08/21 23:50 04:38 04:38 WBC 8.95 Hgb 8.0 L Hct 23.3 L Plt Count 90 L Sodium 143 Potassium 3.8 Chloride 114 H Carbon Dioxide 19 L BUN 28 H Creatinine 2.98 H Glucose 142 H Lactate 2.4 H* Calcium 7.3 L Albumin 2.2 L Urine Color Urine Appearance Urine pH Ur Specific [place] Urine Protein Urine Glucose (UA) Urine Blood Urine WBC (Auto) Urine RBC (Auto) U Hyaline Cast (Auto) U Epithel Cells (Auto) Urine Bacteria (Auto) Ur Renal Epithelial Cell Urine Osmolality Ur Random Sodium 01/08/21 04:38 WBC Hgb Hct Plt Count Sodium Potassium Chloride Carbon Dioxide BUN Creatinine Glucose Lactate 1.9 Calcium Albumin Urine Color Urine Appearance Urine pH Ur Specific [place] Urine Protein Urine Glucose (UA) Urine Blood Urine WBC (Auto) Urine RBC (Auto) U Hyaline Cast (Auto) U Epithel Cells (Auto) Urine Bacteria (Auto) Ur Renal Epithelial Cell Urine Osmolality Ur Random Sodium ABDOMINAL CT 01/06/21: No hydronephrosis PG Care Time/CCT Total # of Minutes Spent Total Time Spent with Patient: Total time spent is greater than 50% in coordination of care (as documented) at patient's floor/unit and/or counseling patient: Coding Level of Care Code 62061 Inpt Consult Level 5 Diagnoses Acute kidney injury N17.9 Acute lower GI bleeding K92.2 Abdominal ascites R18.8 Ascites type: other type Liver cirrhosis K74.60; R18.8 Ascites presence: with ascites Hepatic cirrhosis type: unspecified hepatic cirrhosis (1) Abdominal ascites Ascites type: other type Qualified Code(s): R18.8 - Other ascites (2) Liver cirrhosis Ascites presence: with ascites Hepatic cirrhosis type: unspecified hepatic cirrhosis Qualified Code(s): K74.60 - Unspecified cirrhosis of liver; R18.8 - Other ascites
[2021-01-08] MEDS ORDERED: DEXTROSE 50% 50 ML SYRINGE IV PRN (10:15)
[2021-01-08] MEDS ORDERED: GLUCOSE 40% GEL 15 GM TUBE PO PRN (10:15)
[2021-01-08] MEDS ORDERED: GLUCOSE 10 TABS/TUBE PO PRN (10:15)
[2021-01-08] MEDS ORDERED: GLUCAGON FOR INJ 1 MG VIAL IM PRN (10:15)
[2021-01-08] MEDS ORDERED: CARBOHYDRATES FOR HYPOGLYCEMIA PO PRN (10:15)
[2021-01-08] MEDS ORDERED: UMECLIDINIUM BROMIDE 62.5MCG/BLISTER 7 PUFFS/INHALER INH ONE (10:15)
--- NOTE | 2021-01-08 10:15 | Critical Care Progress Note ---
Date of Service January 08, 2021 Assessment & Plan (1) Acute gastrointestinal bleeding: Reason Critically Ill: Acute GI bleed with associated hypotension. NEURO: CAM-ICU: Negative -Patient at this time alert and oriented x3 -With history of CVA without residual effect. CARDIAC: -Acute GI bleed with initial Hgb 6 on admission -Has received a total of 4u PRBC and 4 units of FFP -Hgb stable at this time at 8 -Would plan for transfusions to keep Hgb >8 once out of ICU. -Hypotension initially improved after 2L NSS and PRBC infusions, though required pressor support over the weekend, now off of pressors. -Holding home beta-blockers at this time due to hypotension -Continue Midodrine 2.5mg TID for pressure support RESPIRATORY: -History of COPD -Will start Incruse today. GI: -Acute GI bleed on admission requiring PRBC and FFP infusions -S/P Colonoscopy on 01/06/21 where a visible arterial bleeder was clipped x2 -Continue Cefepime and Flagyl for concerns of intra-abdominal infection -Continue Protonix BID -No need for Octreotide at this time as unlikely esophageal varices bleed -S/P Paracentesis of 4L on 01/07/20, full results pending -Will also begin albumin 25g q8h x48 hours -Patient noting on and off abdominal pain that has been ongoing x1 month, unsure of full etiology but will cover empirically for infection as above as CT scan showed mild rectal wall thickening. RENAL/LYTES: -In acute renal failure with Creatinine 3.1 -Nephro consulted for assistance for pre-renal azotemia from dehydration vs hepatorenal syndrome. -Currently on bicarbonate drip as well for nonanion gap metabolic acidosis -Continues to have poor urine output (475ml over 12 hours) : -No acute concerns at this time -Rausch catheter in place ENDO: -ICU hyperglycemic protocol -Will start insulin today HEME: -Hgb 8 at this time, stable -Plan for transfusions if <8 -S/P 4 unit PRBC and 4 unit FFP ID: -Continue Cefepime and Flagyl for possible proctitis Suspect downgrade to the floor later today. LINES/IV ACCESS: L Fem line, 1x 20g PIV R arm, 1x 20g PIV L ARM CODE STATUS: Conditional - No CPR, OK for intubation DVT PROPHYLAXIS: contraindicated Thank you for allowing us to participate in the care of this patient. Please refer to my attending physician's documentation for any further recommendations. (2) Acute lower GI bleeding: Admission and Anticipated Discharge Date Admission Date: January 06, 2021 Supervising Physician Co-Signing Physician Notes Dr. Hoover was the resident-physician during care of patient. I separately evaluated patient for ivy portions of the history and the exam. I was present during the critical portion of medical decision making, and I discussed the case with the resident. I generally agree with the findings and plan except for any additions/exceptions noted. The patient is hemodynamically stable this morning. Overnight, he required low- dose Levophed with improvement of his mean arterial pressure. His creatinine appears stable to slightly improved. He has a unknown anion gap acidosis possibly from an acute RTA. We are treating this with serum bicarbonate. Nephrology consultation is appreciated. Continue albumin 25 g every 8 hours for 48 hours. Etiology of renal failure includes prerenal azotemia versus HRS. I did remove 4 L of ascitic fluid yesterday which is likely related to his portal hypertension. No infectious etiology was seen in the ascitic fluid. His hemoglobin is stable. He is status post 4 units of packed RBC. He did receive 1 unit of blood yesterday. We will continue to hold anticoagulation at this time. He did have a bowel movement with no evidence of blood. Continue oral midodrine for chronic hypotension. We have restarted long-acting muscarinic antagonist inhaler for his history of COPD. Continue cefepime and Flagyl for the possibility of underlying abdominal infectious etiology. This could be discontinued after 5 to 7 days. Patient is stable to transfer to floor with telemetry at this time. Subjective Patient feeling better overnight. Has had at least 2x bowel movements without bright red blood. Denies any fever, chills, SOB, nausea, vomiting. Is still noting abdominal pain, worse in the lower R quadrant, but states it is his chronic pain and not worsening. Review of Systems Review of Systems: All systems reviewed & are unremarkable except as noted in Subjective Physical Exam Constitutional: + frail appearing and cooperative; no acute distress Eyes: PERRL, conjunctivae normal, anicteric sclerae ENMT: external ear and nose normal, oropharynx normal Neck: normal visual inspection Respiratory: normal respiratory effort; no respiratory distress Auscultation: + wheezes Cardiovascular: Rate/Rhythm: regular rate and regular rhythm Gastrointestinal (Abdomen): Inspection/Auscultation: + abdomen distended and + hypoactive bowel sounds Percussion/Palpation: + abdomen tender (TTP throughout, worse in RLQ ), + tympanic to percussion and + fluid wave; no guarding and abdomen not rigid Musculoskeletal: no cyanosis or clubbing, extremities motor strength 5/5 Neurologic: PERRL, EOMI, accommodation nl, no face palsy, no dysarthria Psychiatric: A+Ox3, euthymic affect Genitourinary: Rausch cathter in place Results & Data Results & Data ([facility]) Vital Signs (Past 12 Hours) Vital Signs Temp Pulse Resp BP Pulse Ox 01/08/21 09:00 82 20 97 01/08/21 08:47 94 H 33 H 119/79 97 01/08/21 08:35 81 25 H 94/72 L 98 01/08/21 08:20 85 29 H 139/121 H 96 01/08/21 08:00 36.5 C 87 30 H 95 01/08/21 07:50 87 27 H 132/81 96 01/08/21 07:19 81 11 L 99/67 L 93 01/08/21 07:04 82 20 94/66 L 94 01/08/21 07:00 81 19 92 01/08/21 06:34 77 17 98/69 L 92 01/08/21 06:04 78 17 114/69 92 01/08/21 05:55 77 19 106/63 94 01/08/21 05:49 86 16 80/65 L 93 01/08/21 05:34 78 17 86/61 L 93 01/08/21 05:19 79 17 106/70 92 01/08/21 05:04 81 11 L 99/74 L 91 01/08/21 04:34 81 3 L 88/64 L 92 01/08/21 04:04 76 2 L 103/70 93 01/08/21 03:52 37.1 C 01/08/21 03:34 70 16 115/68 91 01/08/21 03:04 72 15 107/70 92 01/08/21 02:34 72 9 L 113/72 95 01/08/21 02:04 72 13 113/69 93 01/08/21 02:00 37.0 C 01/08/21 01:34 73 17 111/66 94 01/08/21 01:04 72 19 96/65 L 92 01/08/21 00:04 72 15 106/62 95 01/07/21 23:49 72 19 103/66 93 01/07/21 23:19 74 18 109/69 92 01/07/21 23:05 70 01/07/21 22:49 73 18 96/65 L 92 01/07/21 22:34 72 17 102/64 93 01/07/21 22:19 72 18 126/72 93 Resident Activity Tracking Resident Involvement: Resident Care Provided Care Provided: Adult Hospital Medicine
[2021-01-08] MEDS: ALBUMIN 25% 12.5 GM/50 ML VIAL IV SCH ×2 (10:21→17:18)
--- NOTE | 2021-01-08 10:27 | Billing Data ---
Date of Service January 08, 2021 Coding Level of Care Code 45015 Subseq Hosp Care Lvl 3
[2021-01-08] MEDS: INSULIN ASPART 100 UNITS/ML 3 ML PEN SC SCH ×3 (11:55→20:48)
[2021-01-08 13:16] LABS: Appearance Urine Clear (Clear); Bilirubin Urine Negative (Negative); Blood Urine 2+ (Negative); Color Urine Dark Yellow; Glucose Urine UA Negative (Negative); Ketones Urine Trace (Negative); Leukocyte Esterase Urine Trace (Negative); Nitrite Urine Negative (Negative); Protein Urine 1+ (Negative); Specific Gravity Urine 1.022 (1.000-1.030); Urobilinogen Urine Negative (Negative)
[2021-01-08 13:47] LABS: Epithelial Cell Urine 0-5 /lpf (0-5)
[2021-01-08] MEDS: CEFEPIME 2,000 MG in SYRINGE 0 ML IV SCH (13:48)
[2021-01-08 13:49] LABS: Hyaline Casts Urine 0-5 /lpf (0-5)
[2021-01-08 13:50] LABS: Bacteria Urine 1+ (Negative)
[2021-01-08] MEDS ORDERED: FUROSEMIDE 40 MG in SYRINGE 0 ML IV ONE (14:30)
--- NOTE | 2021-01-08 14:50 | Gastroenterology Progress Note ---
Date of Service January 08, 2021 Assessment & Plan (1) Acute lower GI bleeding: resolved post clippin of rectal arterial bleeder---ok to advance to solid low sodium diet. acute blood loss anemia--transfuse prn-stable ascites- WBC normal in fluid so no evidence of SBP RLQ pain chronic---improved post ascites removal diarrhea chronic--per patient but had solid stool on colo renal dysfunction---per attending. Admission and Anticipated Discharge Date Admission Date: January 06, 2021 Subjective CC f/u bleeding HPI: No further bleeding. Pt states has some abd pain off and on. Review of Systems Respiratory: + cough; no dyspnea Cardiovascular: no chest pain Physical Exam Respiratory: normal respiratory effort Gastrointestinal (Abdomen): abd pos bs, moderate distension, no guarding nor rebound Results & Data ([facility]) Vital Signs (Past 12 Hours) Vital Signs Temp Pulse Resp BP Pulse Ox 01/08/21 14:00 78 16 93 01/08/21 13:46 75 20 106/68 92 01/08/21 13:00 70 14 93 01/08/21 12:46 69 16 118/73 92 01/08/21 12:00 36.8 C 79 28 H 92 01/08/21 11:46 76 20 91/63 L 91 01/08/21 11:00 75 19 95 01/08/21 10:46 81 17 104/68 96 01/08/21 10:00 73 18 96 01/08/21 09:46 76 19 98/60 L 95 01/08/21 09:00 82 20 97 01/08/21 08:47 94 H 33 H 119/79 97 01/08/21 08:35 81 25 H 94/72 L 98 01/08/21 08:20 85 29 H 139/121 H 96 01/08/21 08:00 36.5 C 87 30 H 95 01/08/21 07:50 87 27 H 132/81 96 01/08/21 07:19 81 11 L 99/67 L 93 01/08/21 07:04 82 20 94/66 L 94 01/08/21 07:00 81 19 92 01/08/21 06:34 77 17 98/69 L 92 01/08/21 06:04 78 17 114/69 92 01/08/21 05:55 77 19 106/63 94 01/08/21 05:49 86 16 80/65 L 93 01/08/21 05:34 78 17 86/61 L 93 01/08/21 05:19 79 17 106/70 92 01/08/21 05:04 81 11 L 99/74 L 91 01/08/21 04:34 81 3 L 88/64 L 92 01/08/21 04:04 76 2 L 103/70 93 01/08/21 03:52 37.1 C 01/08/21 03:34 70 16 115/68 91 01/08/21 03:04 72 15 107/70 92
--- NOTE | 2021-01-08 18:39 | Hospitalist Progress Note ---
Date of Service January 08, 2021 Assessment & Plan (1) Acute gastrointestinal bleeding: Acute blood loss anemia with hemoglobin 6.0 from 11.4 in October. Recent colonoscopy performed 10 days prior to admission with one 5 mm polyp removed in distal ascending colon multiple recently bleeding colonic angiectasias treated with argon plasma coagulation EGD also at that time showed grade 2 esophageal varices and erythematous mucosa in the stomach -Colonoscopy with Dr. Estrada performed this admission on 01/06: Ulcerations noted from APC 10 days prior. Visible vessel on one ulcer started to do APC and pulsatile bleeding noted. Epinephrine injected and then 2 clips placed with control of bleeding. This was the suspected source of bleeding and repeat EGD not necessary he is status post 4 units of PRBC and 1 unit of FFP upon admission Hb dropped again to 7.0 on 01/07 he was transfused 1/5 unit of PRBCs Hemoglobin now improved and stable at 8.0 Had a brown stool on 01/08 Appreciate GI consultation-recommends to advance to solid low-sodium diet today Continue to monitor CBC in the morning (2) Hypotension due to blood loss: Hypotension due to acute blood loss anemia as well as due to large volume paracentesis on 01/07 Fluid resuscitation in the emergency room with 2L NSS bolus while awaiting packed RBCs. now s/p 5 units of PRBC Also status post IV albumin on 01/07 and ordered again for 01/08 Was on Levophed overnight on 01/07 and weaned off Blood pressures are soft but improved on midodrine 2.5 mg p.o. 3 times daily Holding home nadolol, furosemide, tamsulosin Stable for downgrade out of ICU (3) Acute kidney failure: Secondary to hypovolemia and low hemoglobin/hemorrhagic shock. no signs of obstruction on CT abdomen/pelvis UA negative for granular casts Cr slightly improved from 3.1 to 2.98 after IV fluid and PRBC transfusions, urine output was a bit low today but now improving with IV Lasix and IV albumin Appreciate nephrology consultation Continue sodium bicarbonate drip until serum bicarbonate greater than 22 -Continue albumin 25 g IV every 8 hours x48 hours Follow BMP Recommended to hold diuretic therapy although IV Lasix was given x1 by smocking machine operator today for low urine output No need for octreotide at this point his creatinine is trending down with conservative management (4) Esophageal varices: Grade 2 esophageal varices noted on recent EGD 10 days ago no hematemesis source of bleeding noted on colonoscopy so bleeding varices unlikely Home nadolol is currently on hold-of note, propranolol is also on his home medication list-we will need to figure out which when he is actually taking (5) Liver cirrhosis: Hepatitis C, posttreatment (unknown details regarding this) History of hepatic encephalopathy however current mentation normal even with low blood pressure and acute blood loss anemia. with ascites, Dr. Haque performed US guided paracentesis on 01/07, 4 liters drained, fluid sent for analysis-no evidence of SBP -With tense ascites and abdominal pain-we will give IV Dilaudid as needed and reevaluate if blood pressure is stable for repeat paracentesis tomorrow (6) Hepatitis C: As above (7) BPH (benign prostatic hyperplasia): Holding Flomax for hypotension, but can restart finasteride Rausch catheter in place-reassess tomorrow if can be removed (8) Diabetes: Historical diagnosis. HbA1c 4.8 in August 2020. Glucose 152 on arrival likely acutely rasied with stress. Monitor BSG ACHS with insulin sliding scale for correction factor only. would recommend stopping Metformin as an outpatient (9) Aortic aneurysm: Notable history of this (10) Peripheral neuropathy: Chronic pain possibly from lumbar degenerative disease versus diabetes. Restart gabapentin when able to take p.o. medication and once renal failure improves. (11) Malignant neoplasm of prostate: Status post radiation Follows with [place] [facility]. Outside note reports having Lupron injections. (12) CAD (coronary artery disease): Follows with cardiology in [place]. Previous stents with last 9 drug- eluting stent placed to mid LAD in 2018. Unable to take antiplatelets due to GI bleeds. Restart beta-klaudia when blood pressure /GI bleed stable. Restart atorvastatin (13) Abdominal ascites: As above, may need repeat paracentesis in the next 1 to 2 days Holding diuretics due to renal failure as above (14) COPD (chronic obstructive pulmonary disease): Restart inhaler No acute issues (15) Metabolic acidosis: As above, serum bicarbonate slowly improved to 19 today Continue sodium bicarbonate drip Follow BMP in the morning (16) DVT prophylaxis: SCDs Chemical anticoagulation contraindicated disposition-stable for downgrade out of ICU to PCU Admission and Anticipated Discharge Date Admission Date: January 06, 2021 Subjective Patient reports worsening abdominal pain and distention especially in the lower quadrants. Blood pressure remains soft today but he has been off Levophed since this morning. Denies chest pains or shortness of breath. He had a brown bowel movement today and his hemoglobin came up from yesterday after transfusion. His urine output was lower today he was given IV Lasix as well as IV albumin and urine output has picked up. Telemetry with normal sinus rhythm Review of Systems Review of Systems: All systems reviewed & are unremarkable except as noted in HPI & below Physical Exam Constitutional: WD/WN, vitals as above Eyes: + anicteric sclerae Neck: trachea midline, no thyromegaly Respiratory: normal respiratory effort, lungs clear to auscultation Cardiovascular: RRR, no murmur, no edema Chest (Breasts): Chest: normal inspection of chest Gastrointestinal (Abdomen): Inspection/Auscultation: + abdomen distended (Significantly distended), normal bowel sounds, + abdominal surgical incision (Large scar in the right upper quadrant) and + caput medusae present Percussion/Palpation: + abdomen tender (In the lower quadrants without guarding) and + ascites Musculoskeletal: Extremities: extremities normal to inspection; no cyanosis and no clubbing Skin: no rashes, warm and dry Neurologic: moves all extremities and awake; no focal motor deficits Psychiatric: A+Ox3, euthymic affect Lymphatic: no lymphedema Results & Data Results & Data ([facility]) Vital Signs (Past 12 Hours) Vital Signs Temp Pulse Resp BP Pulse Ox 01/08/21 16:00 81 19 91 01/08/21 15:46 77 14 102/68 93 01/08/21 15:13 76 01/08/21 15:00 37.2 C 75 16 90 01/08/21 14:46 77 18 113/69 93 01/08/21 14:00 78 16 93 01/08/21 13:46 75 20 106/68 92 01/08/21 13:00 70 14 93 01/08/21 12:46 69 16 118/73 92 01/08/21 12:00 36.8 C 79 28 H 92 01/08/21 11:46 76 20 91/63 L 91 01/08/21 11:00 75 19 95 01/08/21 10:46 81 17 104/68 96 01/08/21 10:00 73 18 96 01/08/21 09:46 76 19 98/60 L 95 02/22/21 09:00 82 20 97 01/08/21 08:47 94 H 33 H 119/79 97 01/08/21 08:35 81 25 H 94/72 L 98 01/08/21 08:20 85 29 H 139/121 H 96 01/08/21 08:00 36.5 C 87 30 H 95 01/08/21 07:50 87 27 H 132/81 96 01/08/21 07:19 81 11 L 99/67 L 93 01/08/21 07:04 82 20 94/66 L 94 01/08/21 07:00 81 19 92 Laboratory Results 01/08/21 04:38 01/08/21 04:38 Lactate down to 1.9, total bilirubin 1.6, INR 1.5 PG Care Time/CCT Total # of Minutes Spent Total Time Spent with Patient: Total time spent is greater than 50% in coordination of care (as documented) at patient's floor/unit and/or counseling patient: Coding Level of Care Code 19802 Subseq Hosp Care Lvl 3 Diagnoses Acute gastrointestinal bleeding K92.2 Hypotension due to blood loss I95.89 Acute kidney failure N17.9 Esophageal varices I85.00 Liver cirrhosis K74.60; R18.8 Ascites presence: with ascites Hepatic cirrhosis type: unspecified hepatic cirrhosis Hepatitis C B19.20 BPH (benign prostatic hyperplasia) N40.0 Diabetes E13.69 Diabetes mellitus complication status: with other specified complication Diabetes mellitus virologist insulin use: unspecified group home insulin use status Diabetes mellitus type: other specified (including JC) Aortic aneurysm I71.9 Peripheral neuropathy G62.9 Malignant neoplasm of prostate C61 CAD (coronary artery disease) I25.10 Abdominal ascites R18.8 Ascites type: other type COPD (chronic obstructive pulmonary disease) J44.9 Metabolic acidosis E87.2 DVT prophylaxis Z29.9 (1) Abdominal ascites Ascites type: other type Qualified Code(s): R18.8 - Other ascites (2) Diabetes Diabetes mellitus complication status: with other specified complication Diabetes mellitus group home insulin use: unspecified virologist insulin use status Diabetes mellitus type: other specified (including JC) Qualified Code(s): E13.69 - Other specified diabetes mellitus with other specified complication (3) Liver cirrhosis Ascites presence: with ascites Hepatic cirrhosis type: unspecified hepatic cirrhosis Qualified Code(s): K74.60 - Unspecified cirrhosis of liver; R18.8 - Other ascites
[2021-01-08] MEDS: HYDROmorphone INJ 0.5 MG/0.5 ML SYR IV PRN (19:17)
[2021-01-09] MEDS: ALBUMIN 25% 12.5 GM/50 ML VIAL IV SCH ×4 (02:08→18:19)
[2021-01-09] MEDS: HYDROmorphone INJ 0.5 MG/0.5 ML SYR IV PRN ×3 (02:11→12:10)
[2021-01-09] MEDS: metroNIDAZOLE 500 MG/100 ML BAG IV SCH ×2 (05:38→13:56)
[2021-01-09] MEDS: SODIUM BICARBONATE 8.4% 150 MEQ in WATER, STERILE 1,000 ML IV SCH (05:39)
[2021-01-09 06:15] LABS: Hematocrit (blood only) 23.7 % (42-52); Hemoglobin 7.9 g/dL (14.0-18.0); Mean Corpuscular Hemoglobin 29.9 pg (25-34); Mean Corpuscular Hgb Conc 33.3 g/dL (32-36); Mean Corpuscular Volume 89.8 fL (80-100); RDW Coefficient of Variation 17.2 % (11.5-14.5); RDW Standard Deviation 54.9 fL (36.4-46.3); Red Blood Count 2.64 M/uL (4.7-6.1); White Blood Count 6.73 K/uL (4.8-10.8)
[2021-01-09 06:24] LABS: Mean Platelet Volume 10.1 fL (7.4-10.4); Platelet Count 74 K/uL (130-400)
[2021-01-09 06:27] LABS: INR 1.5 (0.9-1.1); Prothrombin Time 14.8 Seconds (9.0-12.0)
[2021-01-09 06:49] LABS: Albumin Level 2.8 gm/dl (3.4-5.0); BUN Creatinine Ratio 8.9 (10-20); Calcium 8.1 mg/dl (8.5-10.1); Creatinine Clr Calc Pharmacy 30.3 ml/min; Est GFR (African American) 25.1; Est GFR (Non-African American) 21.7; Potassium 3.8 mmol/L (3.5-5.1)
[2021-01-09 06:51] LABS: Globulin 2.7 gm/dl (2.5-4.0); Total Protein 5.5 gm/dl (6.4-8.2)
[2021-01-09 06:58] LABS: Basophils # (auto) 0.04 K/uL (0-0.2); Basophils % (auto) 0.6 %; Eosinophils # (auto) 0.45 K/uL (0-0.5); Eosinophils % (auto) 6.7 %; Giant Platelets 1+; Immature Granulocytes # (auto) 0.03 K/uL (0.00-0.02); Immature Granulocytes % (auto) 0.4 %; Lymphocytes # (auto) 0.93 K/uL (1.2-3.4); Lymphocytes % (auto) 13.8 %; Monocytes # (auto) 0.87 K/uL (0.11-0.59); Monocytes % (auto) 12.9 %; Neutrophils # (auto) 4.41 K/uL (1.4-6.5); Neutrophils % (auto) 65.6 %; Polychromasia 1+
[2021-01-09] MEDS: NOREPINEPHRINE/D5W 8 MG/508 ML BAG IV SCH (07:59)
[2021-01-09] MEDS: INSULIN ASPART 100 UNITS/ML 3 ML PEN SC SCH ×4 (08:14→21:13)
[2021-01-09] MEDS: UMECLIDINIUM BROMIDE 62.5MCG/BLISTER 7 PUFFS/INHALER INH SCH (08:24)
[2021-01-09] MEDS: MIDODRINE HCL 2.5 MG TAB PO SCH ×3 (08:24→17:27)
[2021-01-09] MEDS: ATORVASTATIN 20 MG TAB PO SCH (08:25)
[2021-01-09] MEDS: PANTOprazole 40 MG in SYRINGE 0 ML IV SCH ×2 (08:25→21:13)
[2021-01-09] MEDS: FINASTERIDE 5 MG TAB PO SCH (08:25)
[2021-01-09] MEDS: CYANOCOBALAMIN 500 MCG TABLET (VITAMIN B-12) PO SCH (08:25)
[2021-01-09] MEDS: FOLIC ACID 1 MG TAB PO SCH (08:25)
--- NOTE | 2021-01-09 09:47 | Nephrology Progress Note ---
Date of Service January 09, 2021 Assessment & Plan (1) Acute kidney injury: * Nonoliguric AMMY due to multiple factors including acute LGI bleeding w/ anemia, hypotension and 3rd spacing of fluid due to cirrhosis/portal hypertension. Baseline Cr has been 1.2 * 01/06/21 urinalysis was negative for granular casts * 01/06/[address] was negative for hydronephrosis * Cr trending down following blood transfusion and stabilization of BP * Recommend blood transfusion to keep Hgb 8.0 or above * Continue Albumin 25 g IV TID today * Hold diuretic therapy for now as patient has been intravascularly volume contracted * Hold Octreotide as Cr is trending down with conservative management * Stop NaHCO3 gtt * Monitor PRP, 01/08/21 urine sediment remains negative for ATN casts (2) Acute lower GI bleeding: * h/o radiation proctitis * Rectal vessel clipped by GI. No further LGI bleeding (3) Abdominal ascites: * s/p 4 L paracentesis 01/07/21 * Recommend repeat paracentesis to alleviate abdominal distention/discomfort (4) Liver cirrhosis: * Hep C + * Documented portal HTN w/ esophageal varices Admission and Anticipated Discharge Date Admission Date: January 06, 2021 Subjective Mr. Willis was seen & examined in his hospital room this morning. He c/o diffuse abdominal discomfort. He denied fever, dyspnea or emesis Review of Systems Constitutional: no fever Eyes: no problem reported Respiratory: no cough and no dyspnea Cardiovascular: no chest pain and no palpitations Gastrointestinal: no abdominal pain Physical Exam Constitutional: not in distress Eyes: PERRL, conjunctivae normal, anicteric sclerae Neck: trachea midline, no thyromegaly Respiratory: normal respiratory effort, lungs clear to auscultation Cardiovascular: Rate/Rhythm: regular rate and regular rhythm Vessels: no JVD Gastrointestinal (Abdomen): Inspection/Auscultation: + abdomen distended Percussion/Palpation: + ascites (+ fluid wave) and + abdomen firm; abdomen nontender and no guarding Neurologic: awake; not confused Results & Data ([facility]) Vital Signs (Past 12 Hours) Vital Signs Temp Pulse Pulse Resp BP Pulse Ox 01/09/21 08:13 36.5 C 93 H 19 130/96 93 01/09/21 08:00 84 01/09/21 03:41 36.8 C 84 21 138/76 95 01/09/21 00:13 36.8 C 60 19 97/67 L 90 01/09/21 00:00 85 Laboratory Tests 01/09/21 01/09/21 06:01 06:01 WBC 6.73 Hgb 7.9 L Hct 23.7 L Plt Count 74 L Sodium 141 Potassium 3.8 Chloride 111 H Carbon Dioxide 24 BUN 25 H Creatinine 2.82 H Glucose 127 H Calcium 8.1 L Albumin 2.8 L Laboratory Tests 01/08/21 11:15 Urine Color Dark Yellow Urine Appearance Clear Urine pH 5.0 Ur Specific [place] 1.022 Urine Protein 1+ H Urine Glucose (UA) Negative Urine Blood 2+ H Urine Nitrite Negative Urine Bilirubin Negative Ur Leukocyte Esterase Trace H Urine RBC 10-30 H Urine WBC 5-10 H Ur Epithelial Cells 0-5 Urine Bacteria 1+ H Hyaline Casts 0-5 PG Care Time/CCT Total # of Minutes Spent Total Time Spent with Patient: Total time spent is greater than 50% in coordination of care (as documented) at patient's floor/unit and/or counseling patient: Coding Level of Care Code 95817 Subseq Hosp Care Lvl 3 Diagnoses Acute kidney injury N17.9 Acute lower GI bleeding K92.2 Abdominal ascites R18.8 Ascites type: other type Liver cirrhosis K74.60; R18.8 Ascites presence: with ascites Hepatic cirrhosis type: unspecified hepatic cirrhosis (1) Abdominal ascites Ascites type: other type Qualified Code(s): R18.8 - Other ascites (2) Liver cirrhosis Ascites presence: with ascites Hepatic cirrhosis type: unspecified hepatic cirrhosis Qualified Code(s): K74.60 - Unspecified cirrhosis of liver; R18.8 - Other ascites
[2021-01-09] MEDS ORDERED: ALBUMIN 25% 12.5 GM/50 ML VIAL IV ONE (10:15)
--- NOTE | 2021-01-09 12:55 | Progress Notes ---
DATE: 01/09/2021 The patient reports no visible bleeding. He had 1 brown bowel movement earlier today. His hemoglobin and hematocrit have remained stable. He does have quite a distended abdomen, which is tender and he is scheduled to have a paracentesis later today to have some of that fluid removed. His main issue now is correcting his renal dysfunction and getting his fluid balance back in order. IMPRESSION: The patient had radiation proctitis with some bleeding. Currently, this situation is stable, we will continue to follow him peripherally and provide input as needed.
--- NOTE | 2021-01-09 12:55 | Hospitalist Progress Note ---
Date of Service January 09, 2021 Assessment & Plan (1) Acute gastrointestinal bleeding: Acute blood loss anemia with hemoglobin 6.0 from 11.4 in October. Recent colonoscopy performed 10 days prior to admission with one 5 mm polyp removed in distal ascending colon multiple recently bleeding colonic angiectasias treated with argon plasma coagulation EGD also at that time showed grade 2 esophageal varices and erythematous mucosa in the stomach -Colonoscopy with Dr. Estrada performed this admission on 01/06: Ulcerations noted from APC 10 days prior. Visible vessel on one ulcer started to do APC and pulsatile bleeding noted. Epinephrine injected and then 2 clips placed with control of bleeding. This was the suspected source of bleeding and repeat EGD not necessary he is status post 4 units of PRBC and 1 unit of FFP upon admission Hb dropped again to 7.0 on 01/07 he was transfused another unit of PRBCs Hemoglobin now improved and stable at 7.9 Had a brown stool on 01/08 and again on 01/09 Appreciate GI consultation-have since advance diet to solid foods, low-sodium Continue to monitor CBC in the morning (2) Hypotension due to blood loss: Hypotension due to acute blood loss anemia as well as due to large volume paracentesis on 01/07 Fluid resuscitation in the emergency room with 2L NSS bolus while awaiting packed RBCs. now s/p 5 units of PRBC and 36 hours of IV albumin Was on Levophed overnight on 01/07 and weaned off on 01/08 Blood pressures also improved on midodrine 2.5 mg p.o. 3 times daily Continue holding home nadolol, furosemide, tamsulosin Was downgraded out of the ICU on 01/08 Now status post 4 L paracentesis again on 01/09-watch for hypotension (3) Acute kidney failure: Secondary to hypovolemia and low hemoglobin/hemorrhagic shock. no signs of obstruction on CT abdomen/pelvis UA negative for granular casts Cr slightly improved from 3.1 to to 2.8 after IV fluid and PRBC transfusions, IV albumin Urine output is improving Appreciate nephrology consultation Discontinue sodium bicarbonate drip today as serum bicarbonate is now improved -Continue albumin 25 g IV every 8 hours through the rest of today Follow BMP in the morning Continue to hold diuretic therapy as per nephrology No need for octreotide at this point his creatinine is trending down with conservative management (4) Esophageal varices: Grade 2 esophageal varices noted on recent EGD 10 days ago no hematemesis source of bleeding noted on colonoscopy so bleeding varices unlikely Home nadolol is currently on hold-of note, propranolol is also on his home medic ation list-we will need to figure out which when he is actually taking (5) Liver cirrhosis: Hepatitis C, posttreatment (unknown details regarding this) History of hepatic encephalopathy however current mentation normal even with low blood pressure and acute blood loss anemia. With elevated INR at 1.5, platelets low at 74, sodium normal at 141, total kristyn irubin elevated at 2.0 with ascites, Dr. Haque performed US guided paracentesis on 01/07, 4 liters drained, fluid sent for analysis-no evidence of SBP -With tense ascites and abdominal pain persisting on 01/08 and 01/09-went for repeat paracentesis with another 4 L removed on 01/09 -Giving IV albumin as above -Given worsening encephalopathy today which may be due to IV Dilaudid and a toxic encephalopathy, but could be hepatic encephalopathy despite normal ammonia level at 26-start lactulose 30 g p.o. twice daily -Eventually restart nadolol, Lasix, Aldactone, once stabilized (6) Hepatitis C: As above (7) BPH (benign prostatic hyperplasia): Holding Flomax for hypotension, -Continue finasteride Rausch catheter in place-we will continue to reassess daily if can be removed- continue for now given encephalopathy and ongoing renal failure (8) Diabetes: Historical diagnosis. HbA1c 4.8 in August 2020. Glucose 152 on arrival likely acutely rasied with stress. Monitor BSG ACHS with insulin sliding scale for correction factor only. would recommend stopping Metformin as an outpatient (9) Aortic aneurysm: Notable history of this (10) Peripheral neuropathy: Chronic pain possibly from lumbar degenerative disease versus diabetes. Restart gabapentin when able to take p.o. medication and once renal failure improves. (11) Malignant neoplasm of prostate: Status post radiation Follows with [place] [facility]. Outside note reports having Lupron injections. (12) CAD (coronary artery disease): Follows with cardiology in [place]. Previous stents with last 9 drug- eluting stent placed to mid LAD in 2018. Unable to take antiplatelets due to GI bleeds. Restart beta-klaudia when blood pressure /GI bleed stable. Continue atorvastatin (13) Abdominal ascites: As above, status post paracentesis x2 for 4 L each time Holding diuretics due to renal failure as above (14) COPD (chronic obstructive pulmonary disease): Continue maintenance inhaler No acute issues (15) Metabolic acidosis: As above, serum bicarbonate now normalized Can discontinue sodium bicarbonate drip Follow BMP in the morning (16) DVT prophylaxis: SCDs Chemical anticoagulation contraindicated disposition-stable for downgrade out of ICU to PCU Disposition-continued stay in PCU Conditional code-no CPR or shocks but desires intubation I asked patient if he wanted me to call his sister earlier today and he said he did not want me to at this time. Admission and Anticipated Discharge Date Admission Date: January 06, 2021 Subjective Patient was seen twice today. The first time was around 1230 and he was complaining of significant abdominal pain in the lower quadrant. He was about to be taken down for paracentesis. He had been given IV Dilaudid and was a little bit more confused than he had been yesterday. He denied any other problems. He knew he was in the hospital but had difficulty remembering the name of the hospital. He knew the town and state where he was, but could not come up with the year being 2020. He had a brown bowel movement today, no bleeding noted. I was notified by the nurse later in the evening that the patient was having trouble finding words and seemed a little more confused than earlier. He was able to read sentences for the nurse off a piece of paper and repeat words for her. For me, he was able to move all extremities but did have notable asterixis. He answers my questions but was slow to respond. He had no slurred speech or facial droop. There was no concern for stroke, but rather for hepatic encephalopathy as well as possible toxic encephalopathy from opioid use. His blood pressure was stable, glucose was within normal limits. He had had 4 L removed from his paracentesis. Telemetry with normal sinus rhythm with rates in the 80s to 90s. Review of Systems Review of Systems: All systems reviewed & are unremarkable except as noted in HPI & below Physical Exam Constitutional: WD/WN, vitals as above Eyes: + anicteric sclerae Pupils small but reactive and equal Neck: trachea midline, no thyromegaly Respiratory: normal respiratory effort, lungs clear to auscultation Cardiovascular: Rate/Rhythm: regular rate and regular rhythm Heart Sounds: no murmur Extremities: + edema (Trace edema of the ankles and feet bilaterally) Chest (Breasts): Chest: normal inspection of chest Gastrointestinal (Abdomen): Inspection/Auscultation: + abdomen distended (Significantly distended), normal bowel sounds, + abdominal surgical incision (Large scar in the right upper quadrant) and + caput medusae present Percussion/Palpation: + abdomen tender (In the lower quadrants without guarding) and + ascites Musculoskeletal: Extremities: extremities normal to inspection; no cyanosis and no clubbing Skin: no rashes, warm and dry Neurologic: PERRL, EOMI, accommodation nl, no face palsy, no dysarthria moves all extremities, awake and + confused (Mild); no focal motor deficits Speech / Cognition: normal speech Motor/Sensory: + asterixis; no tremor and no pronator drift Psychiatric: Orientation: alert, oriented to person, oriented to place and cooperative; + not oriented to time Lymphatic: no lymphedema Results & Data Results & Data ([facility]) Vital Signs (Past 12 Hours) Vital Signs Temp Pulse Pulse Resp BP Pulse Ox 01/09/21 11:09 36.8 C 90 18 119/74 92 01/09/21 08:13 36.5 C 93 H 19 130/96 93 01/09/21 08:00 84 01/09/21 03:41 36.8 C 84 21 138/76 95 Laboratory Results 01/09/21 01/09/21 01/09/21 Range/Units 20:17 17:55 16:14 WBC (4.8-10.8) K/uL RBC (4.7-6.1) M/uL Hgb (14.0-18.0) g/dL Hct (42-52) % MCV (80-100) fL MCH (25-34) pg MCHC (32-36) g/dL RDW Std Deviation (36.4-46.3) fL RDW Coeff of Anderson (11.5-14.5) % Plt Count (130-400) K/uL MPV (7.4-10.4) fL Immature Gran % (Auto) % Neut % (Auto) % Lymph % (Auto) % [place] % (Auto) % Eos % (Auto) % Baso % (Auto) % Neut # (Auto) (1.4-6.5) K/uL Lymph # (Auto) (1.2-3.4) K/uL [place] # (Auto) (0.11-0.59) K/uL Eos # (Auto) (0-0.5) K/uL Baso # (Auto) (0-0.2) K/uL Immature Gran # (Auto) (0.00-0.02) K/uL Hypersegmented Neuts Giant Platelets Polychromasia PT (9.0-12.0) Seconds INR (0.9-1.1) Sodium (136-145) mmol/L Potassium (3.5-5.1) mmol/L Chloride (98-107) mmol/L Carbon Dioxide (21-32) mmol/L Anion Gap (3-11) BUN (7-18) mg/dl Creatinine (0.6-1.4) mg/dl Est Cr Clr Drug Dosing ml/min Est GFR ( Amer) Est GFR (Non-Af Amer) BUN/Creatinine Ratio (10-20) Glucose (70-99) mg/dl POC Glucose 161 H 148 H (70-99) mg/dl Calcium (8.5-10.1) mg/dl Total Bilirubin (0.2-1) mg/dl AST (15-37) U/L ALT (12-78) U/L Alkaline Phosphatase (45-117) U/L Ammonia 26.0 (11-32) umol/L Total Protein (6.4-8.2) gm/dl Albumin (3.4-5.0) gm/dl Globulin (2.5-4.0) gm/dl Albumin/Globulin Ratio (0.9-2) 01/09/21 01/09/21 01/09/21 Range/Units 11:15 07:36 06:01 WBC (4.8-10.8) K/uL RBC (4.7-6.1) M/uL Hgb (14.0-18.0) g/dL Hct (42-52) % MCV (80-100) fL MCH (25-34) pg MCHC (32-36) g/dL RDW Std Deviation (36.4-46.3) fL RDW Coeff of Anderson (11.5-14.5) % Plt Count (130-400) K/uL MPV (7.4-10.4) fL Immature Gran % (Auto) % Neut % (Auto) % Lymph % (Auto) % [place] % (Auto) % Eos % (Auto) % Baso % (Auto) % Neut # (Auto) (1.4-6.5) K/uL Lymph # (Auto) (1.2-3.4) K/uL [place] # (Auto) (0.11-0.59) K/uL Eos # (Auto) (0-0.5) K/uL Baso # (Auto) (0-0.2) K/uL Immature Gran # (Auto) (0.00-0.02) K/uL Hypersegmented Neuts Giant Platelets Polychromasia PT (9.0-12.0) Seconds INR (0.9-1.1) Sodium 141 (136-145) mmol/L Potassium 3.8 (3.5-5.1) mmol/L Chloride 111 H (98-107) mmol/L Carbon Dioxide 24 (21-32) mmol/L Anion Gap 7.0 (3-11) BUN 25 H (7-18) mg/dl Creatinine 2.82 H (0.6-1.4) mg/dl Est Cr Clr Drug Dosing 30.3 ml/min Est GFR ( Amer) 25.1 Est GFR (Non-Af Amer) 21.7 BUN/Creatinine Ratio 8.9 L (10-20) Glucose 127 H (70-99) mg/dl POC Glucose 153 H 128 H (70-99) mg/dl Calcium 8.1 L (8.5-10.1) mg/dl Total Bilirubin 2.0 H (0.2-1) mg/dl AST 36 (15-37) U/L ALT 21 (12-78) U/L Alkaline Phosphatase 59 (45-117) U/L Ammonia (11-32) umol/L Total Protein 5.5 L (6.4-8.2) gm/dl Albumin 2.8 L (3.4-5.0) gm/dl Globulin 2.7 (2.5-4.0) gm/dl Albumin/Globulin Ratio 1.0 (0.9-2) 01/09/21 01/09/21 01/08/21 Range/Units 06:01 06:01 20:48 WBC 6.73 (4.8-10.8) K/uL RBC 2.64 L (4.7-6.1) M/uL Hgb 7.9 L (14.0-18.0) g/dL Hct 23.7 L (42-52) % MCV 89.8 (80-100) fL MCH 29.9 (25-34) pg MCHC 33.3 (32-36) g/dL RDW Std Deviation 54.9 H (36.4-46.3) fL RDW Coeff of Anderson 17.2 H (11.5-14.5) % Plt Count 74 L (130-400) K/uL MPV 10.1 (7.4-10.4) fL Immature Gran % (Auto) 0.4 % Neut % (Auto) 65.6 % Lymph % (Auto) 13.8 % [place] % (Auto) 12.9 % Eos % (Auto) 6.7 % Baso % (Auto) 0.6 % Neut # (Auto) 4.41 (1.4-6.5) K/uL Lymph # (Auto) 0.93 L (1.2-3.4) K/uL [place] # (Auto) 0.87 H (0.11-0.59) K/uL Eos # (Auto) 0.45 (0-0.5) K/uL Baso # (Auto) 0.04 (0-0.2) K/uL Immature Gran # (Auto) 0.03 H (0.00-0.02) K/uL Hypersegmented Neuts 1+ Giant Platelets 1+ Polychromasia 1+ PT 14.8 H (9.0-12.0) Seconds INR 1.5 H (0.9-1.1) Sodium (136-145) mmol/L Potassium (3.5-5.1) mmol/L Chloride (98-107) mmol/L Carbon Dioxide (21-32) mmol/L Anion Gap (3-11) BUN (7-18) mg/dl Creatinine (0.6-1.4) mg/dl Est Cr Clr Drug Dosing ml/min Est GFR ( Amer) Est GFR (Non-Af Amer) BUN/Creatinine Ratio (10-20) Glucose (70-99) mg/dl POC Glucose 133 H (70-99) mg/dl Calcium (8.5-10.1) mg/dl Total Bilirubin (0.2-1) mg/dl AST (15-37) U/L ALT (12-78) U/L Alkaline Phosphatase (45-117) U/L Ammonia (11-32) umol/L Total Protein (6.4-8.2) gm/dl Albumin (3.4-5.0) gm/dl Globulin (2.5-4.0) gm/dl Albumin/Globulin Ratio (0.9-2) PG Care Time/CCT Total # of Minutes Spent Total Time Spent with Patient: Total time spent is greater than 50% in coordination of care (as documented) at patient's floor/unit and/or counseling patient: Coding Level of Care Code 04353 Subseq Hosp Care Lvl 3 Diagnoses Acute gastrointestinal bleeding K92.2 Hypotension due to blood loss I95.89 Acute kidney failure N17.9 Esophageal varices I85.00 Liver cirrhosis K74.60; R18.8 Ascites presence: with ascites Hepatic cirrhosis type: unspecified hepatic cirrhosis Hepatitis C B19.20 BPH (benign prostatic hyperplasia) N40.0 Diabetes E13.69 Diabetes mellitus complication status: with other specified complication Diabetes mellitus medical terminologist insulin use: unspecified intermediate insulin use status Diabetes mellitus type: other specified (including JC) Aortic aneurysm I71.9 Peripheral neuropathy G62.9 Malignant neoplasm of prostate C61 CAD (coronary artery disease) I25.10 Abdominal ascites R18.8 Ascites type: other type COPD (chronic obstructive pulmonary disease) J44.9 Metabolic acidosis E87.2 DVT prophylaxis Z29.9 (1) Abdominal ascites Ascites type: other type Qualified Code(s): R18.8 - Other ascites (2) Diabetes Diabetes mellitus complication status: with other specified complication Diabetes mellitus medical terminologist insulin use: unspecified intermediate insulin use status Diabetes mellitus type: other specified (including JC) Qualified Code(s): E13.69 - Other specified diabetes mellitus with other specified complication (3) Liver cirrhosis Ascites presence: with ascites Hepatic cirrhosis type: unspecified hepatic cirrhosis Qualified Code(s): K74.60 - Unspecified cirrhosis of liver; R18.8 - Other ascites
--- NOTE | 2021-01-09 13:58 | Ultrasound Report ---
PARACENTESIS UNDER ULTRASOUND GUIDANCE CLINICAL HISTORY: Cirrhosis and ascites. COMPARISON STUDY: Abdominal CT dated 01/06/2021. PROCEDURE: The risks, benefits, and alternatives to the procedure were discussed with the patient who voiced understanding. Written informed consent was obtained. Following real-time ultrasound localiza tion of a suitable pocket of fluid in the left lower quadrant, the abdomen was prepped and draped in the usual sterile fashion. The skin and soft tissues were anesthetized with 1% lidocaine. The sheathe d paracentesis needle was inserted and approximately 4 liters of straw-colored ascitic fluid was vicki leeann by vacuum suction. The procedure was well tolerated and without immediate complication. The patie nt left the department in satisfactory condition. IMPRESSION: Successful ultrasound-guided paracentesis with removal of approximately 4 liters of ascit ic fluid. ACT 112: Negative or not required by law. Electronically signed by: Titi Jara M.D. 01/09/2021 1:57 PM
[2021-01-09] MEDS: CEFEPIME 2,000 MG in SYRINGE 0 ML IV SCH (15:05)
[2021-01-09] MEDS ORDERED: LACTULOSE SYRUP 30 GM/45 ML UDP PO STA (17:59)
[2021-01-09] MEDS: metroNIDAZOLE 500 MG TAB PO SCH (21:12)
[2021-01-10] MEDS: metroNIDAZOLE 500 MG TAB PO SCH (05:03)
[2021-01-10 06:19] LABS: Hemoglobin 7.1 g/dL (14.0-18.0); Mean Corpuscular Hemoglobin 30.5 pg (25-34); Mean Corpuscular Hgb Conc 33.8 g/dL (32-36); Mean Corpuscular Volume 90.1 fL (80-100); RDW Coefficient of Variation 17.5 % (11.5-14.5); RDW Standard Deviation 55.4 fL (36.4-46.3); Red Blood Count 2.33 M/uL (4.7-6.1); White Blood Count 5.58 K/uL (4.8-10.8)
[2021-01-10 06:23] LABS: INR 1.6 (0.9-1.1); Prothrombin Time 15.6 Seconds (9.0-12.0)
[2021-01-10 06:26] LABS: Mean Platelet Volume 9.9 fL (7.4-10.4); Platelet Count 65 K/uL (130-400)
[2021-01-10 06:40] LABS: Basophils # (auto) 0.02 K/uL (0-0.2); Basophils % (auto) 0.4 %; Eosinophils # (auto) 0.23 K/uL (0-0.5); Eosinophils % (auto) 4.1 %; Immature Granulocytes # (auto) 0.02 K/uL (0.00-0.02); Immature Granulocytes % (auto) 0.4 %; Lymphocytes # (auto) 0.57 K/uL (1.2-3.4); Lymphocytes % (auto) 10.2 %; Monocytes # (auto) 0.72 K/uL (0.11-0.59); Monocytes % (auto) 12.9 %; Neutrophils # (auto) 4.02 K/uL (1.4-6.5); RBC Morphology Unremarkable
[2021-01-10 06:45] LABS: Albumin Level 2.6 gm/dl (3.4-5.0); BUN Creatinine Ratio 9.5 (10-20); Calcium 7.8 mg/dl (8.5-10.1); Creatinine Clr Calc Pharmacy 30.2 ml/min; Est GFR (African American) 25.8; Est GFR (Non-African American) 22.2; Potassium 3.3 mmol/L (3.5-5.1)
[2021-01-10 06:47] LABS: Bilirubin,Total 1.8 mg/dl (0.2-1); Globulin 2.5 gm/dl (2.5-4.0); Total Protein 5.1 gm/dl (6.4-8.2)
[2021-01-10] MEDS ORDERED: HYDROmorphone INJ 0.5 MG/0.5 ML SYR IV STA (07:30)
[2021-01-10] MEDS ORDERED: SODIUM CHLORIDE 0.9% 250 ML IV PRN (07:45)
--- NOTE | 2021-01-10 08:00 | XRay Report ---
XR KUB/Abdomen 1 view CLINICAL HISTORY: abdominal pain COMPARISON STUDY: 01/07/2021 FINDINGS: There is surgical clips in the right upper quadrant consistent with a prior cholecystectomy . There are mildly dilated small bowel loops measuring up to 35 mm in diameter. This is a nonspecific finding which could be secondary to an ileus, early or partial small bowel obstruction, or secondary to ascites. IMPRESSION: Nonspecific bowel gas pattern with mild small bowel dilatation. ACT 112: Negative or not required by law. Electronically signed by: Lb Ellis M.D. 01/10/2021 7:58 AM
[2021-01-10] MEDS: INSULIN ASPART 100 UNITS/ML 3 ML PEN SC SCH ×4 (08:05→21:31)
[2021-01-10] MEDS: LACTULOSE SYRUP 30 GM/45 ML UDP PO SCH ×2 (08:13→20:46)
[2021-01-10] MEDS: CYANOCOBALAMIN 500 MCG TABLET (VITAMIN B-12) PO SCH (08:14)
[2021-01-10] MEDS: FOLIC ACID 1 MG TAB PO SCH (08:14)
[2021-01-10] MEDS: FINASTERIDE 5 MG TAB PO SCH (08:14)
[2021-01-10] MEDS: PANTOprazole 40 MG in SYRINGE 0 ML IV SCH ×2 (08:15→19:43)
[2021-01-10] MEDS: MIDODRINE HCL 2.5 MG TAB PO SCH ×3 (08:15→16:37)
[2021-01-10] MEDS: UMECLIDINIUM BROMIDE 62.5MCG/BLISTER 7 PUFFS/INHALER INH SCH (08:15)
[2021-01-10] MEDS: ATORVASTATIN 20 MG TAB PO SCH (08:16)
--- NOTE | 2021-01-10 08:25 | Nephrology Progress Note ---
Date of Service January 10, 2021 Assessment & Plan (1) Acute kidney injury: * Nonoliguric AMMY due to multiple factors including acute LGI bleeding w/ anemia, hypotension and 3rd spacing of fluid due to cirrhosis/portal hypertension. Baseline Cr has been 1.2 * 01/06/21 urinalysis was negative for granular casts * 01/06/[address] was negative for hydronephrosis * Cr trending down following blood transfusion and stabilization of BP * Recommend blood transfusion to keep Hgb 8.0 or above. Patient is scheduled for one unit PRBC this am * Continue Albumin 25 g IV TID for next 48 hours * Will attempt diuresis to help mobilize ascitic fluid. Patient is scheduled for blood and albumin which should help stabilize intravascular volume. Will order Spironolactone 100 mg po daily and Furosemide 20 mg IV BID * Monitor PRP, 01/08/21 urine sediment remains negative for ATN casts (2) Acute lower GI bleeding: * h/o radiation proctitis * Rectal vessel clipped by GI. No further LGI bleeding (3) Abdominal ascites: * s/p 4 L paracentesis 01/07/21 and 01/09/21 * Consider repeat paracentesis tomorrow if patient fails to mobilize ascitic fluid w/ above medical measures (4) Liver cirrhosis: * Hep C + * Documented portal HTN w/ esophageal varices Admission and Anticipated Discharge Date Admission Date: January 06, 2021 Subjective Mr. Willis was seen & examined in his hospital room this morning. He underwent paracentesis yesterday for 4L volume removal. His abdomen remains distended and patient c/o diffuse abdominal discomfort. He denies fever, dyspnea or emesis Review of Systems Constitutional: no fever Eyes: no problem reported Respiratory: no cough and no dyspnea Cardiovascular: no chest pain and no palpitations Gastrointestinal: + abdominal pain Physical Exam Constitutional: not in distress Eyes: PERRL, conjunctivae normal, anicteric sclerae Neck: trachea midline, no thyromegaly Respiratory: normal respiratory effort, lungs clear to auscultation Cardiovascular: Rate/Rhythm: regular rate and regular rhythm Vessels: no JVD Gastrointestinal (Abdomen): Inspection/Auscultation: + abdomen distended Percussion/Palpation: + ascites (+ fluid wave); abdomen nontender and no guarding Neurologic: awake; not confused Results & Data ([facility]) Vital Signs (Past 12 Hours) Vital Signs Temp Pulse Pulse Resp BP Pulse Ox 01/10/21 07:21 36.6 C 92 H 20 100/66 92 01/10/21 05:06 37.0 C 81 18 111/72 95 01/09/21 23:29 36.6 C 87 18 126/80 94 01/09/21 23:21 90 Laboratory Tests 01/10/21 01/10/21 06:00 06:00 WBC 5.58 Hgb 7.1 L Hct 21.0 L Plt Count 65 L Sodium 143 Potassium 3.3 L Chloride 112 H Carbon Dioxide 22 Creatinine 2.76 H PG Care Time/CCT Total # of Minutes Spent Total Time Spent with Patient: Total time spent is greater than 50% in coordination of care (as documented) at patient's floor/unit and/or counseling patient: Coding Level of Care Code 90185 Subseq Hosp Care Lvl 3 Diagnoses Acute kidney injury N17.9 Acute lower GI bleeding K92.2 Abdominal ascites R18.8 Ascites type: other type Liver cirrhosis K74.60; R18.8 Ascites presence: with ascites Hepatic cirrhosis type: unspecified hepatic cirrhosis (1) Abdominal ascites Ascites type: other type Qualified Code(s): R18.8 - Other ascites (2) Liver cirrhosis Ascites presence: with ascites Hepatic cirrhosis type: unspecified hepatic cirrhosis Qualified Code(s): K74.60 - Unspecified cirrhosis of liver; R18.8 - Other ascites
--- NOTE | 2021-01-10 10:21 | Hospitalist Progress Note ---
Date of Service January 10, 2021 Assessment & Plan (1) Acute gastrointestinal bleeding: Acute blood loss anemia with hemoglobin 6.0 from 11.4 in October. Recent colonoscopy performed 10 days prior to admission with one 5 mm polyp removed in distal ascending colon multiple recently bleeding colonic angiectasias treated with argon plasma coagulation EGD also at that time showed grade 2 esophageal varices and erythematous mucosa in the stomach -Colonoscopy with Dr. Estrada performed this admission on 01/06: Ulcerations noted from APC 10 days prior. Visible vessel on one ulcer started to do APC and pulsatile bleeding noted. Epinephrine injected and then 2 clips placed with control of bleeding. This was the suspected source of bleeding and repeat EGD not necessary he is status post 4 units of PRBC and 1 unit of FFP upon admission Hb dropped again to 7.0 on 01/07 he was transfused another unit of PRBCs Hemoglobin then improved and stable at 7.9 Had a brown stool on 01/08 and again on , however hemoglobin dropped to 7.0 again on 01/10 We will give another unit of PRBCs today and have one placed on hold -Given ongoing abdominal pain and mild small bowel distention on KUB-decrease diet back to clear liquids Appreciate GI consultation Continue to monitor CBC in the morning (2) Hypotension due to blood loss: Hypotension due to acute blood loss anemia as well as due to large volume paracentesis on 01/07 Fluid resuscitation in the emergency room with 2L NSS bolus while awaiting packed RBCs. now s/p 5 units of PRBC and 2 days of IV albumin Was on Levophed overnight on 01/07 and weaned off on 01/08 Blood pressures also improved on midodrine 2.5 mg p.o. 3 times daily Continue holding home nadolol, tamsulosin Was downgraded out of the ICU on 01/08 Now status post 4 L paracentesis again on 01/09-no further hypotension -Continue IV albumin today -Starting IV Lasix 40 mg twice daily and spironolactone 100 mg once daily (3) Acute kidney failure: Secondary to hypovolemia and low hemoglobin/hemorrhagic shock. no signs of obstruction on CT abdomen/pelvis UA negative for granular casts Cr peaked at 3.1 and now continuing to improve daily, down to 2.7 after IV albumin and PRBC transfusions Urine output is improving Appreciate nephrology consultation Discontinued sodium bicarbonate drip today as serum bicarbonate is now improved -Continue albumin 25 g IV every 8 hours through the rest of today Follow BMP in the morning No need for octreotide at this point his creatinine is trending down with conservative management -Starting IV Lasix and spironolactone for significant symptomatic ascites Follow urine output (4) Esophageal varices: Grade 2 esophageal varices noted on recent EGD 10 days prior to admission no hematemesis source of bleeding noted on colonoscopy so bleeding varices unlikely Home nadolol is currently on hold-of note, propranolol is also on his home medication list-we will need to figure out which when he is actually taking (5) Liver cirrhosis: Hepatitis C, post-treatment (unknown details regarding this) History of hepatic encephalopathy however current mentation normal even with low blood pressure and acute blood loss anemia. With elevated INR at 1.6, platelets low at 65, sodium normal at 143, total bilirubin elevated at 1.8 which is improved from previous with ascites, Dr. Haque performed US guided paracentesis on 01/07, 4 liters drained, fluid sent for analysis-no evidence of SBP on cell count, culture negative -With tense ascites and abdominal pain persisting on 01/08 and 01/09-went for repeat paracentesis with another 4 L removed on 01/09 -Giving IV albumin as above -Ammonia level normal at 26 during the period of confusion on 01/09 which is likely due to excessive Dilaudid use -Eventually restart nadolol -Restart Lasix, and added Aldactone on 01/10 -Plan for repeat paracentesis again on 01/11 (6) Hepatitis C: As above (7) BPH (benign prostatic hyperplasia): Continue holding Flomax for hypotension -Continue finasteride Rausch catheter in place-we will continue to reassess daily if can be removed- continue for now given encephalopathy and ongoing renal failure (8) Diabetes: Historical diagnosis. HbA1c 4.8 in August 2020. Glucose 152 on arrival likely acutely raised with stress. Monitor BSG ACHS with insulin sliding scale for correction factor only. would recommend stopping Metformin as an outpatient (9) Aortic aneurysm: Notable history of this (10) Peripheral neuropathy: Chronic pain possibly from lumbar degenerative disease versus diabetes. Restart gabapentin when able to take p.o. medication and once renal failure improves. (11) Malignant neoplasm of prostate: Status post radiation Follows with [facility]. Outside note reports having Lupron injections. (12) CAD (coronary artery disease): Follows with cardiology in [place]. Previous stents with last 9 drug- eluting stent placed to mid LAD in 2018. Unable to take antiplatelets due to GI bleeds. Restart beta-klaudia when blood pressure /GI bleed stable. Continue atorvastatin (13) Abdominal ascites: As above, status post paracentesis x2 for 4 L each time Starting Lasix and Aldactone as above Repeat paracentesis on 01/11 as planned Okay to continue low doses of IV Dilaudid 0.25mg to 3 hours as needed abdominal pain with caution and watch for confusion (14) COPD (chronic obstructive pulmonary disease): Continue maintenance inhaler No acute issues (15) Metabolic acidosis: As above, serum bicarbonate now normalized have since discontinued sodium bicarbonate drip Follow BMP in the morning (16) DVT prophylaxis: SCDs Chemical anticoagulation contraindicated due to GI bleeding Disposition-continued stay in PCU Conditional code-no CPR or shocks but desires intubation Spoke with his sister on phone today Admission and Anticipated Discharge Date Admission Date: January 06, 2021 Subjective Patient reports having continued lower abdominal pain but not quite as bad as yesterday. He notes that he was confused earlier today but feels better now. He had a large loose bowel movement this morning. He feels short of breath occasionally. He denies nausea or vomiting. No chest pain. I discussed his case with nephrology and gastroenterology today. Telemetry with normal sinus rhythm with rates in the 80s Review of Systems Review of Systems: All systems reviewed & are unremarkable except as noted in HPI & below Physical Exam Constitutional: WD/WN, vitals as above Eyes: + anicteric sclerae Neck: trachea midline, no thyromegaly Respiratory: normal respiratory effort, lungs clear to auscultation Cardiovascular: RRR, no murmur, no edema Rate/Rhythm: regular rate and regular rhythm Heart Sounds: no murmur Extremities: + edema (Trace edema of the ankles and feet bilaterally) Chest (Breasts): Chest: normal inspection of chest Gastrointestinal (Abdomen): Inspection/Auscultation: + abdomen distended (mderately distended), normal bowel sounds, + abdominal surgical incision (Large scar in the right upper quadrant) and + caput medusae present Percussion/P alpation: + abdomen tender (In the lower quadrants without guarding) and + ascites Musculoskeletal: Extremities: extremities normal to inspection; no cyanosis and no clubbing Skin: no rashes, warm and dry Neurologic: moves all extremities and awake; no focal motor deficits and not confused Psychiatric: Orientation: alert, oriented to person, oriented to place and cooperative; + not oriented to time Lymphatic: no lymphedema Results & Data Results & Data ([facility]) Vital Signs (Past 12 Hours) Vital Signs Temp Pulse Pulse Resp BP BP Pulse Ox 01/10/21 10:06 36.8 C 80 18 120/76 94 01/10/21 09:47 36.4 C L 78 14 143/79 H 94 01/10/21 08:00 85 01/10/21 07:21 36.6 C 92 H 20 100/66 92 01/10/21 05:06 37.0 C 81 18 111/72 95 01/09/21 23:29 36.6 C 87 18 126/80 94 01/09/21 23:21 90 Laboratory Results 01/10/21 01/10/21 01/10/21 Range/Units 16:03 11:13 07:54 WBC (4.8-10.8) K/uL RBC (4.7-6.1) M/uL Hgb (14.0-18.0) g/dL Hct (42-52) % MCV (80-100) fL MCH (25-34) pg MCHC (32-36) g/dL RDW Std Deviation (36.4-46.3) fL RDW Coeff of Anderson (11.5-14.5) % Plt Count (130-400) K/uL MPV (7.4-10.4) fL Immature Gran % (Auto) % Neut % (Auto) % Lymph % (Auto) % [place] % (Auto) % Eos % (Auto) % Baso % (Auto) % Neut # (Auto) (1.4-6.5) K/uL Lymph # (Auto) (1.2-3.4) K/uL [place] # (Auto) (0.11-0.59) K/uL Eos # (Auto) (0-0.5) K/uL Baso # (Auto) (0-0.2) K/uL Immature Gran # (Auto) (0.00-0.02) K/uL RBC Morphology PT (9.0-12.0) Seconds INR (0.9-1.1) Sodium (136-145) mmol/L Potassium (3.5-5.1) mmol/L Chloride (98-107) mmol/L Carbon Dioxide (21-32) mmol/L Anion Gap (3-11) BUN (7-18) mg/dl Creatinine (0.6-1.4) mg/dl Est Cr Clr Drug Dosing ml/min Est GFR ( Amer) Est GFR (Non-Af Amer) BUN/Creatinine Ratio (10-20) Glucose (70-99) mg/dl POC Glucose 137 H 161 H (70-99) mg/dl Calcium (8.5-10.1) mg/dl Total Bilirubin (0.2-1) mg/dl AST (15-37) U/L ALT (12-78) U/L Alkaline Phosphatase (45-117) U/L Ammonia (11-32) umol/L Total Protein (6.4-8.2) gm/dl Albumin (3.4-5.0) gm/dl Globulin (2.5-4.0) gm/dl Albumin/Globulin Ratio (0.9-2) Blood Type O Positive Antibody Screen NEGATIVE Crossmatch See Detail 01/10/21 01/10/21 01/10/21 Range/Units 07:20 06:00 06:00 WBC (4.8-10.8) K/uL RBC (4.7-6.1) M/uL Hgb (14.0-18.0) g/dL Hct (42-52) % MCV (80-100) fL MCH (25-34) pg MCHC (32-36) g/dL RDW Std Deviation (36.4-46.3) fL RDW Coeff of Anderson (11.5-14.5) % Plt Count (130-400) K/uL MPV (7.4-10.4) fL Immature Gran % (Auto) % Neut % (Auto) % Lymph % (Auto) % [place] % (Auto) % Eos % (Auto) % Baso % (Auto) % Neut # (Auto) (1.4-6.5) K/uL Lymph # (Auto) (1.2-3.4) K/uL [place] # (Auto) (0.11-0.59) K/uL Eos # (Auto) (0-0.5) K/uL Baso # (Auto) (0-0.2) K/uL Immature Gran # (Auto) (0.00-0.02) K/uL RBC Morphology PT 15.6 H (9.0-12.0) Seconds INR 1.6 H (0.9-1.1) Sodium 143 (136-145) mmol/L Potassium 3.3 L (3.5-5.1) mmol/L Chloride 112 H (98-107) mmol/L Carbon Dioxide 22 (21-32) mmol/L Anion Gap 9.0 (3-11) BUN 26 H (7-18) mg/dl Creatinine 2.76 H (0.6-1.4) mg/dl Est Cr Clr Drug Dosing 30.2 ml/min Est GFR ( Amer) 25.8 Est GFR (Non-Af Amer) 22.2 BUN/Creatinine Ratio 9.5 L (10-20) Glucose 129 H (70-99) mg/dl POC Glucose 137 H (70-99) mg/dl Calcium 7.8 L (8.5-10.1) mg/dl Total Bilirubin 1.8 H (0.2-1) mg/dl AST 28 (15-37) U/L ALT 16 (12-78) U/L Alkaline Phosphatase 53 (45-117) U/L Ammonia (11-32) umol/L Total Protein 5.1 L (6.4-8.2) gm/dl Albumin 2.6 L (3.4-5.0) gm/dl Globulin 2.5 (2.5-4.0) gm/dl Albumin/Globulin Ratio 1.0 (0.9-2) Blood Type Antibody Screen Crossmatch 01/10/21 01/09/21 01/09/21 Range/Units 06:00 20:17 17:55 WBC 5.58 (4.8-10.8) K/uL RBC 2.33 L (4.7-6.1) M/uL Hgb 7.1 L (14.0-18.0) g/dL Hct 21.0 L (42-52) % MCV 90.1 (80-100) fL MCH 30.5 (25-34) pg MCHC 33.8 (32-36) g/dL RDW Std Deviation 55.4 H (36.4-46.3) fL RDW Coeff of Anderson 17.5 H (11.5-14.5) % Plt Count 65 L (130-400) K/uL MPV 9.9 (7.4-10.4) fL Immature Gran % (Auto) 0.4 % Neut % (Auto) 72.0 % Lymph % (Auto) 10.2 % [place] % (Auto) 12.9 % Eos % (Auto) 4.1 % Baso % (Auto) 0.4 % Neut # (Auto) 4.02 (1.4-6.5) K/uL Lymph # (Auto) 0.57 L (1.2-3.4) K/uL [place] # (Auto) 0.72 H (0.11-0.59) K/uL Eos # (Auto) 0.23 (0-0.5) K/uL Baso # (Auto) 0.02 (0-0.2) K/uL Immature Gran # (Auto) 0.02 (0.00-0.02) K/uL RBC Morphology Unremarkable PT (9.0-12.0) Seconds INR (0.9-1.1) Sodium (136-145) mmol/L Potassium (3.5-5.1) mmol/L Chloride (98-107) mmol/L Carbon Dioxide (21-32) mmol/L Anion Gap (3-11) BUN (7-18) mg/dl Creatinine (0.6-1.4) mg/dl Est Cr Clr Drug Dosing ml/min Est GFR ( Amer) Est GFR (Non-Af Amer) BUN/Creatinine Ratio (10-20) Glucose (70-99) mg/dl POC Glucose 161 H (70-99) mg/dl Calcium (8.5-10.1) mg/dl Total Bilirubin (0.2-1) mg/dl AST (15-37) U/L ALT (12-78) U/L Alkaline Phosphatase (45-117) U/L Ammonia 26.0 (11-32) umol/L Total Protein (6.4-8.2) gm/dl Albumin (3.4-5.0) gm/dl Globulin (2.5-4.0) gm/dl Albumin/Globulin Ratio (0.9-2) Blood Type Antibody Screen Crossmatch Diagnostic Findings KUB images personally reviewed by me and agree with the following report: XR KUB/Abdomen 1 view CLINICAL HISTORY: abdominal pain COMPARISON STUDY: 01/07/2021 FINDINGS: There is surgical clips in the right upper quadrant consistent with a prior cholecystectomy. There are mildly dilated small bowel loops measuring up to 35 mm in diameter. This is a nonspecific finding which could be secondary to an ileus, early or partial small bowel obstruction, or secondary to ascites. IMPRESSION: Nonspecific bowel gas pattern with mild small bowel dilatation. PG Care Time/CCT Total # of Minutes Spent Total Time Spent with Patient: Total time spent is greater than 50% in coordination of care (as documented) at patient's floor/unit and/or counseling patient: Coding Level of Care Code 05522 Subseq Hosp Care Lvl 3 Diagnoses Acute gastrointestinal bleeding K92.2 Hypotension due to blood loss I95.89 Acute kidney failure N17.9 Esophageal varices I85.00 Liver cirrhosis K74.60; R18.8 Ascites presence: with ascites Hepatic cirrhosis type: unspecified hepatic cirrhosis Hepatitis C B19.20 BPH (benign prostatic hyperplasia) N40.0 Diabetes E13.69 Diabetes mellitus complication status: with other specified complication Diabetes mellitus group home insulin use: unspecified technician terminal and repeater insulin use status Diabetes mellitus type: other specified (including JC) Aortic aneurysm I71.9 Peripheral neuropathy G62.9 Malignant neoplasm of prostate C61 CAD (coronary artery disease) I25.10 Abdominal ascites R18.8 Ascites type: other type COPD (chronic obstructive pulmonary disease) J44.9 Metabolic acidosis E87.2 DVT prophylaxis Z29.9 (1) Abdominal ascites Ascites type: other type Qualified Code(s): R18.8 - Other ascites (2) Diabetes Diabetes mellitus complication status: with other specified complication Diabetes mellitus technician terminal and repeater insulin use: unspecified technician terminal and repeater insulin use status Diabetes mellitus type: other specified (including JC) Qualified Code(s): E13.69 - Other specified diabetes mellitus with other specified complication (3) Liver cirrhosis Ascites presence: with ascites Hepatic cirrhosis type: unspecified hepatic cirrhosis Qualified Code(s): K74.60 - Unspecified cirrhosis of liver; R18.8 - Other ascites
[2021-01-10] MEDS: ALBUMIN 25% 12.5 GM/50 ML VIAL IV SCH ×4 (10:47→18:44)
[2021-01-10] MEDS: SPIRONOLACTONE 100 MG TAB PO SCH (10:47)
[2021-01-10] MEDS: FUROSEMIDE 20 MG in SYRINGE 0 ML IV SCH ×2 (10:47→16:36)
[2021-01-10] MEDS: HYDROmorphone INJ 0.5 MG/0.5 ML SYR IV PRN ×3 (14:05→20:46)
--- NOTE | 2021-01-10 16:54 | Progress Notes ---
DATE: 01/10/2021 The patient reports having increasing abdominal distention and pain despite a 4-liter of paracentesis yesterday, which did not show any evidence of spontaneous bacterial peritonitis. A KUB x-ray today shows some nonspecific small bowel distention, but not enough to explain the marked distention of his abdomen on physical exam. There is general dullness to percussion throughout and generalized tenderness throughout consistent with recurrent ascites. He was started on spironolactone today at 100 mg a day. IMPRESSION: The patient has increasing abdominal pain and distention, probably from recurrent ascites as his KUB does not show significant bowel distention. I would recommend proceeding with another paracentesis tomorrow and try to draw off as much fluid as possible and follow with an albumin infusion and continue with the spironolactone and sodium restriction.
[2021-01-11] MEDS: ALBUMIN 25% 12.5 GM/50 ML VIAL IV SCH ×6 (02:30→19:02)
[2021-01-11] MEDS: HYDROmorphone INJ 0.5 MG/0.5 ML SYR IV PRN ×4 (03:20→21:03)
[2021-01-11 07:40] LABS: Hematocrit (blood only) 25.1 % (42-52); Hemoglobin 8.3 g/dL (14.0-18.0); Mean Corpuscular Hgb Conc 33.1 g/dL (32-36); Mean Corpuscular Volume 90.6 fL (80-100); RDW Coefficient of Variation 17.7 % (11.5-14.5); RDW Standard Deviation 57.5 fL (36.4-46.3); Red Blood Count 2.77 M/uL (4.7-6.1); White Blood Count 5.69 K/uL (4.8-10.8)
[2021-01-11 07:51] LABS: INR 1.6 (0.9-1.1); Prothrombin Time 15.3 Seconds (9.0-12.0)
[2021-01-11 08:06] LABS: BUN Creatinine Ratio 9.1 (10-20); Calcium 8.1 mg/dl (8.5-10.1); Creatinine Clr Calc Pharmacy 32.2 ml/min; Est GFR (African American) 27.6; Est GFR (Non-African American) 23.8; Potassium 3.6 mmol/L (3.5-5.1)
[2021-01-11 08:07] LABS: Mean Platelet Volume 10.7 fL (7.4-10.4); Platelet Count 74 K/uL (130-400)
[2021-01-11 08:09] LABS: Albumin Globulin Ratio 1.1 (0.9-2); Basophils # (auto) 0.03 K/uL (0-0.2); Basophils % (auto) 0.5 %; Bilirubin,Total 2.3 mg/dl (0.2-1); Eosinophils # (auto) 0.56 K/uL (0-0.5); Eosinophils % (auto) 9.8 %; Globulin 2.7 gm/dl (2.5-4.0); Immature Granulocytes # (auto) 0.01 K/uL (0.00-0.02); Immature Granulocytes % (auto) 0.2 %; Lymphocytes # (auto) 0.58 K/uL (1.2-3.4); Lymphocytes % (auto) 10.2 %; Monocytes # (auto) 0.87 K/uL (0.11-0.59); Monocytes % (auto) 15.3 %; Neutrophils # (auto) 3.64 K/uL (1.4-6.5); Total Protein 5.7 gm/dl (6.4-8.2)
--- NOTE | 2021-01-11 08:31 | Hospitalist Progress Note ---
Date of Service January 11, 2021 Assessment & Plan (1) Acute gastrointestinal bleeding: Acute blood loss anemia with hemoglobin 6.0 from 11.4 in October. Recent colonoscopy performed 10 days prior to admission with one 5 mm polyp removed in distal ascending colon multiple recently bleeding colonic angiectasias treated with argon plasma coagulation EGD also at that time showed grade 2 esophageal varices and erythematous mucosa in the stomach -Colonoscopy with Dr. Estrada performed this admission on 01/06: Ulcerations noted from APC 10 days prior. Visible vessel on one ulcer started to do APC and pulsatile bleeding noted. Epinephrine injected and then 2 clips placed with control of bleeding. This was the suspected source of bleeding and repeat EGD not necessary he is status post 4 units of PRBC and 1 unit of FFP upon admission Hb dropped again to 7.0 on 01/07 he was transfused another unit of PRBCs Hemoglobin then improved and stable at 7.9 Had a brown stool on 01/08 and again on , however hemoglobin dropped to 7.0 again on 01/10 Received another unit of PRBCs on 01/10 Hgb improved on 01/11 to 8.3 Appreciate GI consultation Continue to monitor CBC in the morning -ok to advance diet to soft today (2) Hypotension due to blood loss: Hypotension due to acute blood loss anemia as well as due to large volume paracentesis on 01/07 Fluid resuscitation in the emergency room with 2L NSS bolus while awaiting packed RBCs. now s/p 6 units of PRBCs and 3 days of IV albumin Was on Levophed overnight on 01/07 and weaned off on 01/08 Blood pressures also improved on midodrine 2.5 mg p.o. 3 times daily Continue holding home nadolol, tamsulosin Was downgraded out of the ICU on 01/08 Now status post 4 L paracentesis on 01/07, again 4L removed on 01/09 and 5L on 01/11-no further hypotension -Continue IV albumin today -continue IV Lasix 20 mg twice daily and spironolactone 100 mg once daily (3) Acute kidney failure: Secondary to hypovolemia and low hemoglobin/hemorrhagic shock. no signs of obstruction on CT abdomen/pelvis UA negative for granular casts Cr peaked at 3.1 and now continuing to improve daily, down to 2.6 with IV albumin and PRBC transfusions Urine output is improving Appreciate nephrology consultation met acidosis improved on sodium bicarbonate drip which has since been discontinued -Continue albumin 25 g IV every 8 hours through the rest of today Follow BMP in the morning No need for octreotide at this point his creatinine is trending down with conservative management -continue IV Lasix and spironolactone for significant symptomatic ascites Follow urine output (4) Esophageal varices: Grade 2 esophageal varices noted on recent EGD 10 days prior to admission no hematemesis source of bleeding noted on colonoscopy so bleeding varices unlikely Home nadolol is currently on hold-of note, propranolol is also on his home medication list-we will need to figure out which when he is actually taking (5) Liver cirrhosis: Hepatitis C, post-treatment (unknown details regarding this) History of hepatic encephalopathy however current mentation normal even with low blood pressure and acute blood loss anemia. With elevated INR at 1.6, platelets low nut improved at 74, sodium normal at 142, total bilirubin elevated at 2.3 with ascites, Dr. Haque performed US guided paracentesis on 01/07, 4 liters drained, fluid sent for analysis-no evidence of SBP on cell count, culture negative -With tense ascites and abdominal pain -has had serial paracentesis with 4 L removed on 01/07, 01/09, and 5L removed on 01/11 -Giving IV albumin as above -Ammonia level normal at 26 during the period of confusion on 01/09 which is likely due to excessive Dilaudid use -Eventually restart nadolol -continue Lasix, and Aldactone -needs continued outpt GI follow up (6) Hepatitis C: As above (7) BPH (benign prostatic hyperplasia): Continue holding Flomax for hypotension but can likely restart tomorrow if BPs remain stable -Continue finasteride Rausch catheter in place-we will continue to reassess daily if can be removed- continue for now given ongoing renal failure (8) Diabetes: Historical diagnosis. HbA1c 4.8 in August 2020. Glucose 152 on arrival likely acutely raised with stress. Monitor BSG ACHS with insulin sliding scale for correction factor only. would recommend stopping Metformin as an outpatient (9) Aortic aneurysm: Notable history of this (10) Peripheral neuropathy: Chronic pain possibly from lumbar degenerative disease versus diabetes. Restart gabapentin once renal failure improves. (11) Malignant neoplasm of prostate: Status post radiation Follows with [place] [facility]. Outside note reports having Lupron injections. (12) CAD (coronary artery disease): Follows with cardiology in [place]. Previous stents with last 9 drug- eluting stent placed to mid LAD in 2018. Unable to take antiplatelets due to GI bleeds. Restart beta-klaudia when blood pressure /GI bleed stable. Continue atorvastatin (13) Abdominal ascites: As above, status post paracentesis x3 for total of 13L removed this week continue Lasix and Aldactone as above Okay to continue low doses of IV Dilaudid 0.25mg to 3 hours as needed abdominal pain with caution and watch for confusion (14) COPD (chronic obstructive pulmonary disease): Continue maintenance inhaler No acute issues (15) Metabolic acidosis: As above, serum bicarbonate now normalized have since discontinued sodium bicarbonate drip Follow BMP in the morning (16) DVT prophylaxis: SCDs Chemical anticoagulation contraindicated due to GI bleeding Disposition-continued stay in PCU until bed available at [facility] would like him transferred there given prolonged stay Conditional code-no CPR or shocks but desires intubation Admission and Anticipated Discharge Date Admission Date: January 06, 2021 Subjective Pt feeling much better today even when I saw him before the repeat paracentesis today. Still some abd pain requiring low doses of Dilaudid, but improved from yesterday. No confusion at all today. Denies CP or SOB. No BM so far today. Feels ready to try solid foods later today. Discussed his care with GI Tele with BIJANR 70-80s, Karla Review of Systems Review of Systems: All systems reviewed & are unremarkable except as noted in HPI & below Physical Exam Constitutional: WD/WN, vitals as above Eyes: + anicteric sclerae Neck: trachea midline, no thyromegaly Respiratory: normal respiratory effort, lungs clear to auscultation Cardiovascular: Rate/Rhythm: regular rate and regular rhythm Heart Sounds: no murmur Extremities: + edema (Trace edema of the ankles and feet bilaterally) Chest (Breasts): Chest: normal inspection of chest Gastrointestinal (Abdomen): Inspection/Auscultation: + abdomen distended (moderately distended), normal bowel sounds, + abdominal surgical incision (Large scar in the right upper quadrant) and + caput medusae present Percussion/Palpation: + abdomen tender (In the lower quadrants without guarding) and + ascites Musculoskeletal: Extremities: extremities normal to inspection; no cyanosis and no clubbing Skin: no rashes, warm and dry Neurologic: moves all extremities and awake; no focal motor deficits and not confused Speech / Cognition: normal speech Motor/Sensory: no pronator drift Psychiatric: A+Ox3, euthymic affect Results & Data Results & Data ([facility]) Vital Signs (Past 12 Hours) Vital Signs Temp Pulse Pulse Resp BP Pulse Ox 01/11/21 07:03 36.7 C 85 18 133/80 92 01/11/21 04:00 36.5 C 80 16 114/71 96 01/11/21 00:00 36.8 C 77 18 105/65 92 01/10/21 22:00 82 Laboratory Results 01/11/21 01/11/21 01/11/21 Range/Units Unknown 21:01 16:18 WBC (4.8-10.8) K/uL RBC (4.7-6.1) M/uL Hgb (14.0-18.0) g/dL Hct (42-52) % MCV (80-100) fL MCH (25-34) pg MCHC (32-36) g/dL RDW Std Deviation (36.4-46.3) fL RDW Coeff of Anderson (11.5-14.5) % Plt Count (130-400) K/uL MPV (7.4-10.4) fL Immature Gran % (Auto) % Neut % (Auto) % Lymph % (Auto) % [place] % (Auto) % Eos % (Auto) % Baso % (Auto) % Neut # (Auto) (1.4-6.5) K/uL Lymph # (Auto) (1.2-3.4) K/uL [place] # (Auto) (0.11-0.59) K/uL Eos # (Auto) (0-0.5) K/uL Baso # (Auto) (0-0.2) K/uL Immature Gran # (Auto) (0.00-0.02) K/uL PT (9.0-12.0) Seconds INR (0.9-1.1) Sodium (136-145) mmol/L Potassium (3.5-5.1) mmol/L Chloride (98-107) mmol/L Carbon Dioxide (21-32) mmol/L Anion Gap (3-11) BUN (7-18) mg/dl Creatinine (0.6-1.4) mg/dl Est Cr Clr Drug Dosing ml/min Est GFR ( Amer) Est GFR (Non-Af Amer) BUN/Creatinine Ratio (10-20) Glucose (70-99) mg/dl POC Glucose 143 H 156 H (70-99) mg/dl Calcium (8.5-10.1) mg/dl Total Bilirubin (0.2-1) mg/dl AST (15-37) U/L ALT (12-78) U/L Alkaline Phosphatase (45-117) U/L Total Protein (6.4-8.2) gm/dl Albumin (3.4-5.0) gm/dl Globulin (2.5-4.0) gm/dl Albumin/Globulin Ratio (0.9-2) SARS-CoV-2 Ag (Rapid) Negative (Negative) 01/11/21 01/11/21 01/11/21 Range/Units 11:07 07:10 06:56 WBC (4.8-10.8) K/uL RBC (4.7-6.1) M/uL Hgb (14.0-18.0) g/dL Hct (42-52) % MCV (80-100) fL MCH (25-34) pg MCHC (32-36) g/dL RDW Std Deviation (36.4-46.3) fL RDW Coeff of Anderson (11.5-14.5) % Plt Count (130-400) K/uL MPV (7.4-10.4) fL Immature Gran % (Auto) % Neut % (Auto) % Lymph % (Auto) % [place] % (Auto) % Eos % (Auto) % Baso % (Auto) % Neut # (Auto) (1.4-6.5) K/uL Lymph # (Auto) (1.2-3.4) K/uL [place] # (Auto) (0.11-0.59) K/uL Eos # (Auto) (0-0.5) K/uL Baso # (Auto) (0-0.2) K/uL Immature Gran # (Auto) (0.00-0.02) K/uL PT (9.0-12.0) Seconds INR (0.9-1.1) Sodium 142 (136-145) mmol/L Potassium 3.6 (3.5-5.1) mmol/L Chloride 111 H (98-107) mmol/L Carbon Dioxide 24 (21-32) mmol/L Anion Gap 8.0 (3-11) BUN 24 H (7-18) mg/dl Creatinine 2.61 H (0.6-1.4) mg/dl Est Cr Clr Drug Dosing 32.2 ml/min Est GFR ( Amer) 27.6 Est GFR (Non-Af Amer) 23.8 BUN/Creatinine Ratio 9.1 L (10-20) Glucose 112 H (70-99) mg/dl POC Glucose 138 H 112 H (70-99) mg/dl Calcium 8.1 L (8.5-10.1) mg/dl Total Bilirubin 2.3 H (0.2-1) mg/dl AST 28 (15-37) U/L ALT 18 (12-78) U/L Alkaline Phosphatase 52 (45-117) U/L Total Protein 5.7 L (6.4-8.2) gm/dl Albumin 3.0 L (3.4-5.0) gm/dl Globulin 2.7 (2.5-4.0) gm/dl Albumin/Globulin Ratio 1.1 (0.9-2) SARS-CoV-2 Ag (Rapid) (Negative) 01/11/21 01/11/21 Range/Units 06:56 06:56 WBC 5.69 (4.8-10.8) K/uL RBC 2.77 L (4.7-6.1) M/uL Hgb 8.3 L (14.0-18.0) g/dL Hct 25.1 L (42-52) % MCV 90.6 (80-100) fL MCH 30.0 (25-34) pg MCHC 33.1 (32-36) g/dL RDW Std Deviation 57.5 H (36.4-46.3) fL RDW Coeff of Anderson 17.7 H (11.5-14.5) % Plt Count 74 L (130-400) K/uL MPV 10.7 H (7.4-10.4) fL Immature Gran % (Auto) 0.2 % Neut % (Auto) 64.0 % Lymph % (Auto) 10.2 % [place] % (Auto) 15.3 % Eos % (Auto) 9.8 % Baso % (Auto) 0.5 % Neut # (Auto) 3.64 (1.4-6.5) K/uL Lymph # (Auto) 0.58 L (1.2-3.4) K/uL [place] # (Auto) 0.87 H (0.11-0.59) K/uL Eos # (Auto) 0.56 H (0-0.5) K/uL Baso # (Auto) 0.03 (0-0.2) K/uL Immature Gran # (Auto) 0.01 (0.00-0.02) K/uL PT 15.3 H (9.0-12.0) Seconds INR 1.6 H (0.9-1.1) Sodium (136-145) mmol/L Potassium (3.5-5.1) mmol/L Chloride (98-107) mmol/L Carbon Dioxide (21-32) mmol/L Anion Gap (3-11) BUN (7-18) mg/dl Creatinine (0.6-1.4) mg/dl Est Cr Clr Drug Dosing ml/min Est GFR ( Amer) Est GFR (Non-Af Amer) BUN/Creatinine Ratio (10-20) Glucose (70-99) mg/dl POC Glucose (70-99) mg/dl Calcium (8.5-10.1) mg/dl Total Bilirubin (0.2-1) mg/dl AST (15-37) U/L ALT (12-78) U/L Alkaline Phosphatase (45-117) U/L Total Protein (6.4-8.2) gm/dl Albumin (3.4-5.0) gm/dl Globulin (2.5-4.0) gm/dl Albumin/Globulin Ratio (0.9-2) SARS-CoV-2 Ag (Rapid) (Negative) PG Care Time/CCT Total # of Minutes Spent Total Time Spent with Patient: Total time spent is greater than 50% in co ordination of care (as documented) at patient's floor/unit and/or counseling patient: Coding Level of Care Code 43969 Subseq Hosp Care Lvl 3 Diagnoses Acute gastrointestinal bleeding K92.2 Hypotension due to blood loss I95.89 Acute kidney failure N17.9 Esophageal varices I85.00 Liver cirrhosis K74.60; R18.8 Ascites presence: with ascites Hepatic cirrhosis type: unspecified hepatic cirrhosis Hepatitis C B19.20 BPH (benign prostatic hyperplasia) N40.0 Diabetes E13.69 Diabetes mellitus complication status: with other specified complication Diabetes mellitus salvage determiner insulin use: unspecified salvage determiner insulin use status Diabetes mellitus type: other specified (including JC) Aortic aneurysm I71.9 Peripheral neuropathy G62.9 Malignant neoplasm of prostate C61 CAD (coronary artery disease) I25.10 Abdominal ascites R18.8 Ascites type: other type COPD (chronic obstructive pulmonary disease) J44.9 Metabolic acidosis E87.2 DVT prophylaxis Z29.9 (1) Abdominal ascites Ascites type: other type Qualified Code(s): R18.8 - Other ascites (2) Diabetes Diabetes mellitus complication status: with other specified complication Diabetes mellitus group home insulin use: unspecified group home insulin use status Diabetes mellitus type: other specified (including JC) Qualified Code(s): E13.69 - Other specified diabetes mellitus with other specified complication (3) Liver cirrhosis Ascites presence: with ascites Hepatic cirrhosis type: unspecified hepatic cirrhosis Qualified Code(s): K74.60 - Unspecified cirrhosis of liver; R18.8 - Other ascites
[2021-01-11] MEDS: FUROSEMIDE 20 MG in SYRINGE 0 ML IV SCH ×2 (08:37→17:03)
[2021-01-11] MEDS: CYANOCOBALAMIN 500 MCG TABLET (VITAMIN B-12) PO SCH (08:37)
[2021-01-11] MEDS: PANTOprazole 40 MG in SYRINGE 0 ML IV SCH ×2 (08:37→21:08)
[2021-01-11] MEDS: FINASTERIDE 5 MG TAB PO SCH (08:37)
[2021-01-11] MEDS: SPIRONOLACTONE 100 MG TAB PO SCH (08:38)
[2021-01-11] MEDS: ATORVASTATIN 20 MG TAB PO SCH (08:38)
[2021-01-11] MEDS: MIDODRINE HCL 2.5 MG TAB PO SCH ×3 (08:38→17:02)
[2021-01-11] MEDS: UMECLIDINIUM BROMIDE 62.5MCG/BLISTER 7 PUFFS/INHALER INH SCH (08:39)
[2021-01-11] MEDS: LACTULOSE SYRUP 30 GM/45 ML UDP PO SCH ×2 (08:39→21:10)
[2021-01-11] MEDS: FOLIC ACID 1 MG TAB PO SCH (08:39)
[2021-01-11] MEDS: INSULIN ASPART 100 UNITS/ML 3 ML PEN SC SCH ×4 (08:43→21:12)
--- NOTE | 2021-01-11 09:23 | Dialysis Progress Note ---
Date of Service January 11, 2021 Assessment & Plan (1) Acute kidney injury: * Nonoliguric AMMY due to multiple factors including acute LGI bleeding w/ anemia, hypotension and 3rd spacing of fluid due to cirrhosis/portal hypertension. Baseline Cr has been 1.2 * 01/06/21 urinalysis was negative for granular casts * 01/06/[address] was negative for hydronephrosis * Cr trending down following blood transfusion and stabilization of BP * Recommend blood transfusion to keep Hgb 8.0 or above * Continue Albumin 25 g IV TID for next 24 hours * Continue Spironolactone 100 mg po daily and Furosemide 20 mg IV BID to help mobilize ascitic fluid * Monitor PRP, 01/08/21 urine sediment remains negative for ATN casts (2) Acute lower GI bleeding: * h/o radiation proctitis * Rectal vessel clipped by GI. No further LGI bleeding (3) Abdominal ascites: * s/p 4 L paracentesis 01/07/21 and 01/09/21 * Paracentesis is scheduled for this am (4) Liver cirrhosis: * Hep C + * Documented portal HTN w/ esophageal varices Admission and Anticipated Discharge Date Admission Date: January 06, 2021 Subjective Mr. Willis was seen & examined in his hospital room this morning. He c/o diffuse abdominal discomfort. His abdomen remains distended. Mr. Willis remains on IV albumin, Spironolactone and Furosemide. He is scheduled for paracentesis later this morning. Mr. Willis currently denies fever, dyspnea or emesis Review of Systems Constitutional: no fever Eyes: no problem reported Respiratory: no cough and no dyspnea Cardiovascular: no chest pain and no palpitations Gastrointestinal: + abdominal pain Physical Exam Constitutional: not in distress Eyes: PERRL, conjunctivae normal, anicteric sclerae Neck: trachea midline, no thyromegaly Respiratory: normal respiratory effort, lungs clear to auscultation Cardiovascular: Rate/Rhythm: regular rate and regular rhythm Vessels: no JVD Gastrointestinal (Abdomen): Inspection/Auscultation: + abdomen distended Percussion/Palpation: + ascites (+ fluid wave); abdomen nontender and no guarding Neurologic: awake; not confused Results & Data ([facility]) Vital Signs (Past 12 Hours) Vital Signs Temp Pulse Pulse Resp BP Pulse Ox 01/11/21 07:03 36.7 C 85 18 133/80 92 01/11/21 04:00 36.5 C 80 16 114/71 96 01/11/21 00:00 36.8 C 77 18 105/65 92 01/10/21 22:00 82 Laboratory Results Laboratory Tests 01/11/21 01/11/21 06:56 06:56 WBC 5.69 Hgb 8.3 L Hct 25.1 L Plt Count 74 L Sodium 142 Potassium 3.6 Chloride 111 H Carbon Dioxide 24 BUN 24 H Creatinine 2.61 H Glucose 112 H Coding Level of Care Code 14517 Subseq Hosp Care [facility] 3 Diagnoses Acute kidney injury N17.9 Acute lower GI bleeding K92.2 Abdominal ascites R18.8 Ascites type: other type Liver cirrhosis K74.60; R18.8 Ascites presence: with ascites Hepatic cirrhosis type: unspecified hepatic cirrhosis (1) Abdominal ascites Ascites type: other type Qualified Code(s): R18.8 - Other ascites (2) Liver cirrhosis Ascites presence: with ascites Hepatic cirrhosis type: unspecified hepatic cirrhosis Qualified Code(s): K74.60 - Unspecified cirrhosis of liver; R18.8 - Other ascites
--- NOTE | 2021-01-11 09:58 | Ultrasound Report ---
PARACENTESIS UNDER ULTRASOUND GUIDANCE CLINICAL HISTORY: ascites COMPARISON STUDY: January 09, 2011 FINDINGS: The risks, benefits, and alternatives to the procedure were discussed with the patient. Herrera micky informed consent was obtained. Following real-time ultrasound localization, the skin was prepped and draped. Following local anesthesia with Xylocaine, the sheath paracentesis needle was inserted a nd approximately 5 liters of straw-colored fluid was removed by vacuum suction. A left lower quadrant approach was utilized. The patient tolerated the procedure well and left the department in satisfactory condition. IMPRESSION: Successful ultrasound-guided paracentesis with removal of approximately 5 liters of ascit ic fluid. ACT 112: Negative or not required by law. Electronically signed by: Lb Ellis M.D. 01/11/2021 9:56 AM
--- NOTE | 2021-01-11 16:11 | Progress Notes ---
DATE: 01/11/2021 The patient had a 5 liter paracentesis done today, but still having some abdominal distention and tenderness. Over the last week, he has had a total of 13 mL of ascitic fluid removed, which is consistent with a noninfected transudate. The patient has been also started on diuretics and has had a significant reduction in his peripheral edema. The patient is receiving 20 mg of furosemide IV twice a day as well as spironolactone 100 mg once a day in the morning. The patient's kidney function continues to gradually improve. His vital signs are normal. Today, his white count is 5.69, hemoglobin 8.3, platelets are 74,000, INR 1.6, BUN 24, creatinine is down from 2.76 to 2.61 today. Bilirubin is 2.3. AST, ALT and alkaline phosphatase are normal. His albumin is up to 3.0 currently. On exam, his abdomen is distended with a bandage in the left lower quadrant from his paracentesis earlier today and he has a little bit of tenderness in the epigastric area. IMPRESSION: The patient has cirrhosis. He has had bleeding from radiation proctitis, which has been treated and is no longer active. With all the fluids he has received from the bleeding, he has developed some ascites and has had some renal insufficiency, which is slowly correcting. The patient is a and the plan is to transfer him to the [facility] in [place] either later today or tomorrow.
[2021-01-12] MEDS: HYDROmorphone INJ 0.5 MG/0.5 ML SYR IV PRN ×3 (01:59→18:16)
[2021-01-12] MEDS: ALBUMIN 25% 12.5 GM/50 ML VIAL IV SCH ×2 (02:03)
--- NOTE | 2021-01-12 02:26 | Communication Note ---
Date of Service: January 12, 2021 Subjective: Nursing notified me that the patient was having increased abdominal pain, and distension. He had a 5L paracentesis and was given albumin today. The patient had diffuse abdominal pain 8-9/10 prior to administration of pain medication. He had a bowel movement this morning. He also had hiccups that seemed to make his abdominal pain worse. Objective: VS - BP 132/74, afebrile, nl HR PE - Abd: tense, decreased bowel sounds, tender to palpation diffusely Labs - peritoneal fluid: few WBC's no organisms culture pending A/P: This likely represents rapid reaccumulation of ascitic fluid although concern for spontaneous vs. secondary bacterial peritonitis given increased pain and recent paracentesis although the patient does not have hypotension or fever. - KUB - ordered lactate, CBC - continue to address pain with PRN pain medications available - ordered one time dose of Gabapentin for hiccups - will continue to follow over the night
[2021-01-12] MEDS ORDERED: GABAPENTIN 100 MG CAP PO STA (02:32)
[2021-01-12 02:56] LABS: Hematocrit (blood only) 24.9 % (42-52); Hemoglobin 8.3 g/dL (14.0-18.0); Mean Corpuscular Hemoglobin 29.9 pg (25-34); Mean Corpuscular Volume 89.6 fL (80-100); RDW Coefficient of Variation 17.6 % (11.5-14.5); RDW Standard Deviation 55.5 fL (36.4-46.3); Red Blood Count 2.78 M/uL (4.7-6.1)
[2021-01-12] MEDS ORDERED: chlorproMAZINE HCL 25 MG TAB PO ONE (03:04)
[2021-01-12 03:08] LABS: Mean Corpuscular Hgb Conc 33.3 g/dL (32-36); Mean Platelet Volume 9.9 fL (7.4-10.4); Platelet Count 79 K/uL (130-400)
[2021-01-12 03:14] LABS: Albumin Level 3.4 gm/dl (3.4-5.0); BUN Creatinine Ratio 8.7 (10-20); Creatinine Clr Calc Pharmacy 31.6 ml/min; Est GFR (Non-African American) 23.3; Potassium 3.5 mmol/L (3.5-5.1)
[2021-01-12 03:17] LABS: Albumin Globulin Ratio 1.4 (0.9-2); Bilirubin,Total 1.8 mg/dl (0.2-1); Globulin 2.5 gm/dl (2.5-4.0); Total Protein 5.9 gm/dl (6.4-8.2)
[2021-01-12 03:24] LABS: Basophils # (auto) 0.02 K/uL (0-0.2); Basophils % (auto) 0.3 %; Eosinophils # (auto) 0.46 K/uL (0-0.5); Eosinophils % (auto) 7.8 %; Immature Granulocytes # (auto) 0.01 K/uL (0.00-0.02); Immature Granulocytes % (auto) 0.2 %; Lymphocytes # (auto) 0.78 K/uL (1.2-3.4); Lymphocytes % (auto) 13.2 %; Monocytes # (auto) 0.76 K/uL (0.11-0.59); Monocytes % (auto) 12.9 %; Neutrophils # (auto) 3.87 K/uL (1.4-6.5); Neutrophils % (auto) 65.6 %
--- NOTE | 2021-01-12 06:54 | XRay Report ---
XR KUB/Abdomen 1 view CLINICAL HISTORY: abdominal pain COMPARISON STUDY: 01/10/2021 FINDINGS: There is gaseous prominence of both large and small bowel loops. There are surgical clips i n the right upper quadrant consistent with a prior cholecystectomy. IMPRESSION: Nonspecific bowel gas pattern with gaseous prominence of both large and small bowel loop s. ACT 112: Negative or not required by law. Electronically signed by: Lb Ellis M.D. 01/12/2021 6:52 AM
[2021-01-12] MEDS: INSULIN ASPART 100 UNITS/ML 3 ML PEN SC SCH ×3 (08:19→18:04)
[2021-01-12] MEDS: SPIRONOLACTONE 100 MG TAB PO SCH (08:22)
[2021-01-12] MEDS: MIDODRINE HCL 2.5 MG TAB PO SCH ×3 (08:22→18:07)
[2021-01-12] MEDS: UMECLIDINIUM BROMIDE 62.5MCG/BLISTER 7 PUFFS/INHALER INH SCH (08:23)
[2021-01-12] MEDS: LACTULOSE SYRUP 30 GM/45 ML UDP PO SCH ×2 (08:23→20:40)
[2021-01-12] MEDS: FOLIC ACID 1 MG TAB PO SCH (08:23)
[2021-01-12] MEDS: FUROSEMIDE 20 MG in SYRINGE 0 ML IV SCH ×2 (08:24→18:08)
[2021-01-12] MEDS: CYANOCOBALAMIN 500 MCG TABLET (VITAMIN B-12) PO SCH (08:24)
[2021-01-12] MEDS: ATORVASTATIN 20 MG TAB PO SCH (08:24)
[2021-01-12] MEDS: PANTOprazole 40 MG in SYRINGE 0 ML IV SCH ×2 (08:24→20:41)
[2021-01-12] MEDS: FINASTERIDE 5 MG TAB PO SCH (08:24)
--- NOTE | 2021-01-12 09:40 | Nephrology Progress Note ---
Date of Service January 12, 2021 Assessment & Plan (1) Acute kidney injury: * Nonoliguric AMMY due to multiple factors including acute LGI bleeding w/ anemia, hypotension and 3rd spacing of fluid due to cirrhosis/portal hypertension. Baseline Cr has been 1.2 * 01/06/21 urinalysis was negative for granular casts * 01/06/[address] was negative for hydronephrosis * Cr improved following blood transfusion and stabilization of BP * Recommend blood transfusion to keep Hgb 8.0 or above * Stop IV albumin. Serum albumin 3.4 this am * Continue Spironolactone 100 mg po daily and Furosemide 20 mg IV BID to help mobilize ascitic fluid * Monitor PRP, 01/08/21 urine sediment remains negative for ATN casts (2) Acute lower GI bleeding: * h/o radiation proctitis * Rectal vessel clipped by GI. No further LGI bleeding (3) Abdominal ascites: * s/p 4 L paracentesis 01/07/21, 01/09/21, 01/12/21 * Abdomen distended and tympanitic this am. KUB shows small & large intestinal distention. Consider NGT for decompression (4) Liver cirrhosis: * Hep C + * Documented portal HTN w/ esophageal varices Admission and Anticipated Discharge Date Admission Date: January 06, 2021 Subjective Mr. Willis was seen & examined in his hospital room this morning. He c/o diffuse abdominal discomfort. His abdomen remains distended. Mr. Willis remains on Spironolactone and Furosemide. His UO has improved. Mr. Willis underwent 4 L paracentesis yesterday. Mr. Willis currently denies fever, dyspnea or emesis Review of Systems Constitutional: no fever Eyes: no problem reported Respiratory: no cough and no dyspnea Cardiovascular: no chest pain and no palpitations Gastrointestinal: + abdominal pain Physical Exam Constitutional: not in distress Eyes: PERRL, conjunctivae normal, anicteric sclerae Neck: trachea midline, no thyromegaly Respiratory: normal respiratory effort, lungs clear to auscultation Cardiovascular: Rate/Rhythm: regular rate and regular rhythm Vessels: no JVD Gastrointestinal (Abdomen): Inspection/Auscultation: + abdomen distended Percussion/Palpation: + tympanic to percussion; abdomen nontender and no guarding Neurologic: awake; not confused Results & Data ([facility]) Vital Signs (Past 12 Hours) Vital Signs Temp Pulse Pulse Resp BP Pulse Ox 01/12/21 06:54 36.9 C 92 H 20 102/66 91 01/12/21 04:00 36.8 C 80 20 133/76 92 01/11/21 23:40 37 C 78 18 132/74 91 01/11/21 23:00 60 Laboratory Tests 01/12/21 01/12/21 02:45 02:45 WBC 5.90 Hgb 8.3 L Hct 24.9 L Plt Count 79 L Sodium 143 Potassium 3.5 Chloride 110 H Carbon Dioxide 25 BUN 23 H Creatinine 2.66 H Glucose 126 H PG Care Time/CCT Total # of Minutes Spent Total Time Spent with Patient: Total time spent is greater than 50% in coordination of care (as documented) at patient's floor/unit and/or counseling patient: Coding Level of Care Code 92701 Subseq Hosp Care Lvl 3 Diagnoses Acute kidney injury N17.9 Acute lower GI bleeding K92.2 Abdominal ascites R18.8 Ascites type: other type Liver cirrhosis K74.60; R18.8 Ascites presence: with ascites Hepatic cirrhosis type: unspecified hepatic cirrhosis (1) Abdominal ascites Ascites type: other type Qualified Code(s): R18.8 - Other ascites (2) Liver cirrhosis Ascites presence: with ascites Hepatic cirrhosis type: unspecified hepatic cirrhosis Qualified Code(s): K74.60 - Unspecified cirrhosis of liver; R18.8 - Other ascites
--- NOTE | 2021-01-12 13:12 | Progress Notes ---
DATE: 01/12/2021 SUBJECTIVE: The patient had a paracentesis yesterday of 5 liters. His abdomen is distended today and appears to be mostly from gas at this point. He is in the process of being considered for transfer to [facility] in [place]. OBJECTIVE: On exam, his abdomen is distended and tympanitic. He does have esophageal varices from his cirrhosis, but they are not active at this time. IMPRESSION: The patient has got abdominal distention, probably from his ileus. I recommended that we try to pass a small caliber either 16 or 18 [place] sump through the nose to try to decompress his abdominal distention to see if this helps to relieve his discomfort. Please note that the computer system was down at the time that I evaluated the patient, so I was not able to access his labs or x-rays or vital signs.
[2021-01-12 14:00] LABS: Creatinine Urine Random 78.9 mg/dl; Protein Creatinine Ratio Urine 0.7 (0-0.2); Total Protein Urine Random 53.9 mg/dl (0-11.9)
[2021-01-12 14:48] LABS: Appearance Urine Clear (Clear); Bacteria Urine Automated Negative (Negative); Bilirubin Urine Negative (Negative); Blood Urine 2+ (Negative); Color Urine Yellow; Epithelial Cell Urine Auto 0-5 /lpf (0-5); Glucose Urine UA Negative (Negative); Ketones Urine Negative (Negative); Leukocyte Esterase Urine Negative (Negative); Nitrite Urine Negative (Negative); Protein Urine 1+ (Negative); RBC Urine Automated >30 /hpf (0-4); Specific Gravity Urine 1.014 (1.000-1.030); Urobilinogen Urine Negative (Negative)
[2021-01-12] MEDS ORDERED: Nursing to Pharmacy Communication SCH (19:15)
--- NOTE | 2021-01-12 23:05 | Hospitalist Progress Note ---
Date of Service January 12, 2021 Assessment & Plan (1) Acute gastrointestinal bleeding: Acute blood loss anemia with hemoglobin 6.0 from 11.4 in October. Recent colonoscopy performed 10 days prior to admission with one 5 mm polyp removed in distal ascending colon multiple recently bleeding colonic angiectasias treated with argon plasma coagulation EGD also at that time showed grade 2 esophageal varices and erythematous mucosa in the stomach -Colonoscopy with Dr. Estrada performed this admission on 01/06: Ulcerations noted from APC 10 days prior. Visible vessel on one ulcer started to do APC and pulsatile bleeding noted. Epinephrine injected and then 2 clips placed with control of bleeding. This was the suspected source of bleeding and repeat EGD not necessary he is status post 4 units of PRBC and 1 unit of FFP upon admission Hb dropped again to 7.0 on 01/07 he was transfused another unit of PRBCs Hemoglobin then improved and stable at 7.9 Continues to have brown stool since 01/08, however hemoglobin dropped to 7.0 again on 01/10 Received another unit of PRBCs on 01/10 Hgb improved on 01/11 to 8.3 and remains stable again today Appreciate GI consultation Continue to monitor CBC in the morning -NPO now again for ileus as below -change IV PPI to Protonix 40mg po bid (2) Ileus: having some loose BMs with lactulose but with ongoing abd pain, bowels distended on KUB but no obstruction -hold lactulose -made NPO -spare use of opioids hopefully this will improve with increased mobilization, improvement of ascites -consult PT/OT small bore NGT attempted to be placed and caused epistaxis and pt declined further trials of placement no nausea or vomiting--> if developed or had worsening abd pain, would trial NGT placement again with caution given known varices Follow BMP, Mag, Phos, keep lytes replaced (3) Hypotension due to blood loss: Hypotension due to acute blood loss anemia as well as due to large volume paracentesis on 01/07 Fluid resuscitation in the emergency room with 2L NSS bolus while awaiting packed RBCs. now s/p 6 units of PRBCs and 3 days of IV albumin Was on Levophed overnight on 01/07 and weaned off on 01/08 Blood pressures also improved on midodrine 2.5 mg p.o. 3 times daily Continue holding home nadolol, tamsulosin Was downgraded out of the ICU on 01/08 Now status post 4 L paracentesis on 01/07, again 4L removed on 01/09 and 5L on 01/11-no further hypotension - IV albumin now discontinued -continue IV Lasix 20 mg twice daily and spironolactone 100 mg once daily (4) Acute kidney failure: Secondary to hypovolemia and low hemoglobin/hemorrhagic shock. no signs of obstruction on CT abdomen/pelvis UA negative for granular casts Cr peaked at 3.1 and now continuing to improve daily, down to 2.6 and then stable today after receiving IV albumin and PRBC transfusions Non-oliguric Appreciate nephrology consultation met acidosis improved on sodium bicarbonate drip which has since been discontinued Follow BMP in the morning No need for octreotide at this point his creatinine is trending down with conservative management Keep hgb >8.0 -continue IV Lasix and spironolactone for significant symptomatic ascites Follow urine output (5) Esophageal varices: Grade 2 esophageal varices noted on recent EGD 10 days prior to admission no hematemesis source of bleeding noted on colonoscopy so bleeding varices unlikely Home nadolol is currently on hold-of note, propranolol is also on his home medication list-we will need to figure out which when he is actually taking (6) Liver cirrhosis: Hepatitis C, post-treatment (unknown details regarding this) History of hepatic encephalopathy however current mentation normal even with low blood pressure and acute blood loss anemia. With elevated INR at 1.6, platelets low nut improved at 74, sodium normal at 142, total bilirubin elevated at 2.3 with ascites, Dr. Haque performed US guided paracentesis on 01/07, 4 liters drained, fluid sent for analysis-no evidence of SBP on cell count, culture negative -With tense ascites and abdominal pain -has had serial paracentesis with 4 L removed on 01/07, 01/09, and 5L removed on 01/11 -received IV albumin as above -Ammonia level normal at 26 during the period of confusion on 01/09 which is likely due to excessive Dilaudid use -Eventually restart nadolol -continue Lasix, and Aldactone -needs continued outpt GI follow up (7) Hepatitis C: As above (8) BPH (benign prostatic hyperplasia): previously holding Flomax for hypotension but will restart tomorrow as BPs remain stable -Continue finasteride Rausch catheter in place-we will continue to reassess daily if can be removed- continue for now given ongoing renal failure (9) Diabetes: Historical diagnosis. HbA1c 4.8 in August 2020. Glucose 152 on arrival likely acutely raised with stress. Monitor BSG ACHS with insulin sliding scale for correction factor only. would recommend stopping Metformin as an outpatient (10) Aortic aneurysm: Notable history of this (11) Peripheral neuropathy: Chronic pain possibly from lumbar degenerative disease versus diabetes. Restart gabapentin once renal failure improves. (12) Malignant neoplasm of prostate: Status post radiation Follows with [place] [facility]. Outside note reports having Lupron injections. (13) CAD (coronary artery disease): Follows with cardiology in [place]. Previous stents with last 9 drug- eluting stent placed to mid LAD in 2018. Unable to take antiplatelets due to GI bleeds. Restart beta-klaudia when blood pressure /GI bleed stable. Continue atorvastatin (14) Abdominal ascites: As above, status post paracentesis x3 for total of 13L removed this week continue Lasix and Aldactone as above Okay to continue low doses of IV Dilaudid 0.25mg to 3 hours as needed abdominal pain with caution and watch for confusion (15) COPD (chronic obstructive pulmonary disease): Continue maintenance inhaler No acute issues (16) Metabolic acidosis: As above, serum bicarbonate now normalized have since discontinued sodium bicarbonate drip Follow BMP in the morning (17) DVT prophylaxis: SCDs Chemical anticoagulation contraindicated due to GI bleeding Disposition-continued stay in PCU until bed available at [facility]-[place] would like him transferred there given prolonged stay-no beds today or through the weekend--plan to transfer there on Friday unless stable for dc to rehab from here on Friday Conditional code-no CPR or shocks but desires intubation Admission and Anticipated Discharge Date Admission Date: January 06, 2021 Subjective Pt had worsening abd pain overnight and had repeat KUB showing some increased distension of bowels but no obstruction. He is having loose stool today. No nausea or vomiting, no CP or SOB. No further GI bleeding. Remains afebrile, lactate was normal on labs. Tele with NSR, PACs, rates in 80-90s Discussed care with Nephrology and GI Review of Systems Review of Systems: All systems reviewed & are unremarkable except as noted in HPI & below Physical Exam Constitutional: WD/WN, vitals as above Eyes: + anicteric sclerae Neck: trachea midline, no thyromegaly Respiratory: normal respiratory effort, lungs clear to auscultation Cardiovascular: Rate/Rhythm: regular rate and regular rhythm Heart Sounds: no murmur Extremities: + edema (Trace edema of the ankles and feet bilaterally) Chest (Breasts): Chest: normal inspection of chest Gastrointestinal (Abdomen): Inspection/Auscultation: + abdomen distended (moderately distended), normal bowel sounds, + abdominal surgical incision (Large scar in the right upper quadrant) and + caput medusae present Percussion/Palpation: + abdomen tender (In the lower quadrants without guarding,improved), abdomen soft (much softer than previously) and + ascites Musculoskeletal: Extremities: extremities normal to inspection; no cyanosis and no clubbing Skin: no rashes, warm and dry Neurologic: moves all extremities and awake; no focal motor deficits and not confused Speech / Cognition: normal speech Psychiatric: Orientation: alert, oriented to person, oriented to place and cooperative; + not oriented to time Results & Data Results & Data ([facility]) Vital Signs (Past 12 Hours) Vital Signs Temp Pulse Resp BP BP Pulse Ox 01/12/21 19:20 36.9 C 79 16 129/73 93 01/12/21 15:18 36.6 C 81 17 108/70 91 01/12/21 11:19 36.8 C 85 18 94/61 L 91 Laboratory Results 01/12/21 01/12/21 01/12/21 Range/Units 19:18 15:48 13:20 WBC (4.8-10.8) K/uL RBC (4.7-6.1) M/uL Hgb (14.0-18.0) g/dL Hct (42-52) % MCV (80-100) fL MCH (25-34) pg MCHC (32-36) g/dL RDW Std Deviation (36.4-46.3) fL RDW Coeff of Anderson (11.5-14.5) % Plt Count (130-400) K/uL MPV (7.4-10.4) fL Immature Gran % (Auto) % Neut % (Auto) % Lymph % (Auto) % [place] % (Auto) % Eos % (Auto) % Baso % (Auto) % Neut # (Auto) (1.4-6.5) K/uL Lymph # (Auto) (1.2-3.4) K/uL [place] # (Auto) (0.11-0.59) K/uL Eos # (Auto) (0-0.5) K/uL Baso # (Auto) (0-0.2) K/uL Immature Gran # (Auto) (0.00-0.02) K/uL Sodium (136-145) mmol/L Potassium (3.5-5.1) mmol/L Chloride (98-107) mmol/L Carbon Dioxide (21-32) mmol/L Anion Gap (3-11) BUN (7-18) mg/dl Creatinine (0.6-1.4) mg/dl Est Cr Clr Drug Dosing ml/min Est GFR ( Amer) Est GFR (Non-Af Amer) BUN/Creatinine Ratio (10-20) Glucose (70-99) mg/dl POC Glucose 135 H 130 H (70-99) mg/dl Lactate (0.4-2.0) mmol/L Calcium (8.5-10.1) mg/dl Total Bilirubin (0.2-1) mg/dl AST (15-37) U/L ALT (12-78) U/L Alkaline Phosphatase (45-117) U/L Total Protein (6.4-8.2) gm/dl Albumin (3.4-5.0) gm/dl Globulin (2.5-4.0) gm/dl Albumin/Globulin Ratio (0.9-2) Lipase (73-393) U/L Urine Color Urine Appearance (Clear) Urine pH (4.5-7.5) Ur Specific [place] (1.000-1.030) Urine Protein (Negative) Urine Glucose (UA) (Negative) Urine Ketones (Negative) Urine Blood (Negative) Urine Nitrite (Negative) Urine Bilirubin (Negative) Urine Urobilinogen (Negative) Ur Leukocyte Esterase (Negative) Urine WBC (Auto) (0-5) /hpf Urine RBC (Auto) (0-4) /hpf U Hyaline Cast (Auto) (0-5) /lpf U Epithel Cells (Auto) (0-5) /lpf Urine Bacteria (Auto) (Negative) Ur Random Creatinine 78.9 mg/dl U Random Total Protein 53.9 H (0-11.9) mg/dl Protein/Creatinin Ratio 0.7 H (0-0.2) Crossmatch 01/12/21 01/12/21 01/12/21 Range/Units 13:20 11:21 07:04 WBC (4.8-10.8) K/uL RBC (4.7-6.1) M/uL Hgb (14.0-18.0) g/dL Hct (42-52) % MCV (80-100) fL MCH (25-34) pg MCHC (32-36) g/dL RDW Std Deviation (36.4-46.3) fL RDW Coeff of Anderson (11.5-14.5) % Plt Count (130-400) K/uL MPV (7.4-10.4) fL Immature Gran % (Auto) % Neut % (Auto) % Lymph % (Auto) % [place] % (Auto) % Eos % (Auto) % Baso % (Auto) % Neut # (Auto) (1.4-6.5) K/uL Lymph # (Auto) (1.2-3.4) K/uL [place] # (Auto) (0.11-0.59) K/uL Eos # (Auto) (0-0.5) K/uL Baso # (Auto) (0-0.2) K/uL Immature Gran # (Auto) (0.00-0.02) K/uL Sodium (136-145) mmol/L Potassium (3.5-5.1) mmol/L Chloride (98-107) mmol/L Carbon Dioxide (21-32) mmol/L Anion Gap (3-11) BUN (7-18) mg/dl Creatinine (0.6-1.4) mg/dl Est Cr Clr Drug Dosing ml/min Est GFR ( Amer) Est GFR (Non-Af Amer) BUN/Creatinine Ratio (10-20) Glucose (70-99) mg/dl POC Glucose 133 H 130 H (70-99) mg/dl Lactate (0.4-2.0) mmol/L Calcium (8.5-10.1) mg/dl Total Bilirubin (0.2-1) mg/dl AST (15-37) U/L ALT (12-78) U/L Alkaline Phosphatase (45-117) U/L Total Protein (6.4-8.2) gm/dl Albumin (3.4-5.0) gm/dl Globulin (2.5-4.0) gm/dl Albumin/Globulin Ratio (0.9-2) Lipase (73-393) U/L Urine Color Yellow Urine Appearance Clear (Clear) Urine pH 5.0 (4.5-7.5) Ur Specific [place] 1.014 (1.000-1.030) Urine Protein 1+ H (Negative) Urine Glucose (UA) Negative (Negative) Urine Ketones Negative (Negative) Urine Blood 2+ H (Negative) Urine Nitrite Negative (Negative) Urine Bilirubin Negative (Negative) Urine Urobilinogen Negative (Negative) Ur Leukocyte Esterase Negative (Negative) Urine WBC (Auto) 1-5 (0-5) /hpf Urine RBC (Auto) >30 H (0-4) /hpf U Hyaline Cast (Auto) 1-5 (0-5) /lpf U Epithel Cells (Auto) 0-5 (0-5) /lpf Urine Bacteria (Auto) Negative (Negative) Ur Random Creatinine mg/dl U Random Total Protein (0-11.9) mg/dl Protein/Creatinin Ratio (0-0.2) Crossmatch 01/12/21 01/12/21 01/12/21 Range/Units 02:45 02:45 02:45 WBC 5.90 (4.8-10.8) K/uL RBC 2.78 L (4.7-6.1) M/uL Hgb 8.3 L (14.0-18.0) g/dL Hct 24.9 L (42-52) % MCV 89.6 (80-100) fL MCH 29.9 (25-34) pg MCHC 33.3 (32-36) g/dL RDW Std Deviation 55.5 H (36.4-46.3) fL RDW Coeff of [place] 17.6 H (11.5-14.5) % Plt Count 79 L (130-400) K/uL MPV 9.9 (7.4-10.4) fL Immature Gran % (Auto) 0.2 % Neut % (Auto) 65.6 % Lymph % (Auto) 13.2 % [place] % (Auto) 12.9 % Eos % (Auto) 7.8 % Baso % (Auto) 0.3 % Neut # (Auto) 3.87 (1.4-6.5) K/uL Lymph # (Auto) 0.78 L (1.2-3.4) K/uL [place] # (Auto) 0.76 H (0.11-0.59) K/uL Eos # (Auto) 0.46 (0-0.5) K/uL Baso # (Auto) 0.02 (0-0.2) K/uL Immature Gran # (Auto) 0.01 (0.00-0.02) K/uL Sodium 143 (136-145) mmol/L Potassium 3.5 (3.5-5.1) mmol/L Chloride 110 H (98-107) mmol/L Carbon Dioxide 25 (21-32) mmol/L Anion Gap 8.0 (3-11) BUN 23 H (7-18) mg/dl Creatinine 2.66 H (0.6-1.4) mg/dl Est Cr Clr Drug Dosing 31.6 ml/min Est GFR ( Amer) 27.0 Est GFR (Non-Af Amer) 23.3 BUN/Creatinine Ratio 8.7 L (10-20) Glucose 126 H (70-99) mg/dl POC Glucose (70-99) mg/dl Lactate 1.8 (0.4-2.0) mmol/L Calcium 8.0 L (8.5-10.1) mg/dl Total Bilirubin 1.8 H (0.2-1) mg/dl AST 23 (15-37) U/L ALT 16 (12-78) U/L Alkaline Phosphatase 53 (45-117) U/L Total Protein 5.9 L (6.4-8.2) gm/dl Albumin 3.4 (3.4-5.0) gm/dl Globulin 2.5 (2.5-4.0) gm/dl Albumin/Globulin Ratio 1.4 (0.9-2) Lipase 156 (73-393) U/L Urine Color Urine Appearance (Clear) Urine pH (4.5-7.5) Ur Specific [place] (1.000-1.030) Urine Protein (Negative) Urine Glucose (UA) (Negative) Urine Ketones (Negative) Urine Blood (Negative) Urine Nitrite (Negative) Urine Bilirubin (Negative) Urine Urobilinogen (Negative) Ur Leukocyte Esterase (Negative) Urine WBC (Auto) (0-5) /hpf Urine RBC (Auto) (0-4) /hpf U Hyaline Cast (Auto) (0-5) /lpf U Epithel Cells (Auto) (0-5) /lpf Urine Bacteria (Auto) (Negative) Ur Random Creatinine mg/dl U Random Total Protein (0-11.9) mg/dl Protein/Creatinin Ratio (0-0.2) Crossmatch 01/10/21 Range/Units 07:54 WBC (4.8-10.8) K/uL RBC (4.7-6.1) M/uL Hgb (14.0-18.0) g/dL Hct (42-52) % MCV (80-100) fL MCH (25-34) pg MCHC (32-36) g/dL RDW Std Deviation (36.4-46.3) fL RDW Coeff of Anderson (11.5-14.5) % Plt Count (130-400) K/uL MPV (7.4-10.4) fL Immature Gran % (Auto) % Neut % (Auto) % Lymph % (Auto) % [place] % (Auto) % Eos % (Auto) % Baso % (Auto) % Neut # (Auto) (1.4-6.5) K/uL Lymph # (Auto) (1.2-3.4) K/uL [place] # (Auto) (0.11-0.59) K/uL Eos # (Auto) (0-0.5) K/uL Baso # (Auto) (0-0.2) K/uL Immature Gran # (Auto) (0.00-0.02) K/uL Sodium (136-145) mmol/L Potassium (3.5-5.1) mmol/L Chloride (98-107) mmol/L Carbon Dioxide (21-32) mmol/L Anion Gap (3-11) BUN (7-18) mg/dl Creatinine (0.6-1.4) mg/dl Est Cr Clr Drug Dosing ml/min Est GFR ( Amer) Est GFR (Non-Af Amer) BUN/Creatinine Ratio (10-20) Glucose (70-99) mg/dl POC Glucose (70-99) mg/dl Lactate (0.4-2.0) mmol/L Calcium (8.5-10.1) mg/dl Total Bilirubin (0.2-1) mg/dl AST (15-37) U/L ALT (12-78) U/L Alkaline Phosphatase (45-117) U/L Total Protein (6.4-8.2) gm/dl Albumin (3.4-5.0) gm/dl Globulin (2.5-4.0) gm/dl Albumin/Globulin Ratio (0.9-2) Lipase (73-393) U/L Urine Color Urine Appearance (Clear) Urine pH (4.5-7.5) Ur Specific [place] (1.000-1.030) Urine Protein (Negative) Urine Glucose (UA) (Negative) Urine Ketones (Negative) Urine Blood (Negative) Urine Nitrite (Negative) Urine Bilirubin (Negative) Urine Urobilinogen (Negative) Ur Leukocyte Esterase (Negative) Urine WBC (Auto) (0-5) /hpf Urine RBC (Auto) (0-4) /hpf U Hyaline Cast (Auto) (0-5) /lpf U Epithel Cells (Auto) (0-5) /lpf Urine Bacteria (Auto) (Negative) Ur Random Creatinine mg/dl U Random Total Protein (0-11.9) mg/dl Protein/Creatinin Ratio (0-0.2) Crossmatch See Detail PG Care Time/CCT Total # of Minutes Spent Total Time Spent with Patient: Total time spent is greater than 50% in coordination of care (as documented) at patient's floor/unit and/or counseling patient: Coding Level of Care Code 80372 Subseq Hosp Care Lvl 3 Diagnoses Acute gastrointestinal bleeding K92.2 Ileus K56.7 Hypotension due to blood loss I95.89 Acute kidney failure N17.9 Esophageal varices I85.00 Liver cirrhosis K74.60; R18.8 Ascites presence: with ascites Hepatic cirrhosis type: unspecified hepatic cirrhosis Hepatitis C B19.20 BPH (benign prostatic hyperplasia) N40.0 Diabetes E13.69 Diabetes mellitus complication status: with other specified complication Diabetes mellitus hangersmith insulin use: unspecified custodial insulin use status Diabetes mellitus type: other specified (including JC) Aortic aneurysm I71.9 Peripheral neuropathy G62.9 Malignant neoplasm of prostate C61 CAD (coronary artery disease) I25.10 Abdominal ascites R18.8 Ascites type: other type COPD (chronic obstructive pulmonary disease) J44.9 Metabolic acidosis E87.2 DVT prophylaxis Z29.9 (1) Liver cirrhosis Ascites presence: with ascites Hepatic cirrhosis type: unspecified hepatic cirrhosis Qualified Code(s): K74.60 - Unspecified cirrhosis of liver; R18.8 - Other ascites (2) Diabetes Diabetes mellitus complication status: with other specified complication Diabetes mellitus custodial insulin use: unspecified hangersmith insulin use status Diabetes mellitus type: other specified (including JC) Qualified Code(s): E13.69 - Other specified diabetes mellitus with other specified complication (3) Abdominal ascites Ascites type: other type Qualified Code(s): R18.8 - Other ascites
[2021-01-13] MEDS: INSULIN ASPART 100 UNITS/ML 3 ML PEN SC SCH ×4 (00:21→21:17)
[2021-01-13 06:28] LABS: Hematocrit (blood only) 24.5 % (42-52); Hemoglobin 8.1 g/dL (14.0-18.0); Mean Corpuscular Hemoglobin 29.9 pg (25-34); Mean Corpuscular Hgb Conc 33.1 g/dL (32-36); Mean Corpuscular Volume 90.4 fL (80-100); RDW Coefficient of Variation 17.8 % (11.5-14.5); RDW Standard Deviation 57.8 fL (36.4-46.3); Red Blood Count 2.71 M/uL (4.7-6.1)
[2021-01-13 06:31] LABS: Mean Platelet Volume 10.3 fL (7.4-10.4); Platelet Count 73 K/uL (130-400)
[2021-01-13 06:59] LABS: Albumin Level 3.1 gm/dl (3.4-5.0); BUN Creatinine Ratio 8.4 (10-20); Calcium 8.3 mg/dl (8.5-10.1); Creatinine Clr Calc Pharmacy 28.4 ml/min; Est GFR (Non-African American) 23.3; Magnesium 1.7 mg/dl (1.8-2.4); Potassium 3.4 mmol/L (3.5-5.1)
[2021-01-13 07:02] LABS: Albumin Globulin Ratio 1.2 (0.9-2); Bilirubin,Total 1.8 mg/dl (0.2-1); Globulin 2.5 gm/dl (2.5-4.0); Phosphorus 2.4 mg/dl (2.5-4.9); Total Protein 5.6 gm/dl (6.4-8.2)
[2021-01-13] MEDS: SPIRONOLACTONE 100 MG TAB PO SCH (08:23)
[2021-01-13] MEDS: FOLIC ACID 1 MG TAB PO SCH (08:23)
[2021-01-13] MEDS: UMECLIDINIUM BROMIDE 62.5MCG/BLISTER 7 PUFFS/INHALER INH SCH (08:23)
[2021-01-13] MEDS: MIDODRINE HCL 2.5 MG TAB PO SCH ×3 (08:23→17:42)
[2021-01-13] MEDS: FINASTERIDE 5 MG TAB PO SCH (08:24)
[2021-01-13] MEDS: FUROSEMIDE 20 MG in SYRINGE 0 ML IV SCH ×2 (08:24→17:42)
[2021-01-13] MEDS: PANTOprazole 40 MG TAB PO SCH ×2 (08:24→20:31)
[2021-01-13] MEDS: ATORVASTATIN 20 MG TAB PO SCH (08:24)
[2021-01-13] MEDS ORDERED: POTASSIUM CHLORIDE CRTAB 20 MEQ TABCR PO STA (08:46)
[2021-01-13] MEDS ORDERED: MAGNESIUM SULFATE / D5W 1 GM/100 ML BAG IV ONE (09:00)
[2021-01-13] MEDS: CYANOCOBALAMIN 500 MCG TABLET (VITAMIN B-12) PO SCH (09:50)
--- NOTE | 2021-01-13 11:34 | Progress Notes ---
DATE: 01/13/2021 SUBJECTIVE: The patient reports that he has been passing multiple stools, but not a lot of gas. The nurse reports that none of the stools have any visible blood. His abdomen is feeling less distended to him today. He continues to make urine and his fluid balance over the last 24 hours is minus liter. OBJECTIVE: VITAL SIGNS: Blood pressure is 132/69, pulse 71, temperature is 36.8, room air saturations 96%. GENERAL: Yesterday, two attempts were made to pass a nasogastric tube for decompression, both failed due to epistaxis, but he is kind of self decompressing at this point. ABDOMEN: Still somewhat distended, but less tympanitic and less tender. LABORATORY DATA: His white count remains 4.1, hemoglobin stable at 8.1, BUN 22, creatinine 2.66. Albumin is 3.1. IMPRESSION: The patient is starting to decompress his ileus by passing stools. He is very thirsty and I have recommended a full liquid diet with sodium restriction and total volume restriction today.
--- NOTE | 2021-01-13 11:54 | Hospitalist Progress Note ---
Date of Service January 13, 2021 Assessment & Plan (1) Acute gastrointestinal bleeding: Acute blood loss anemia with hemoglobin 6.0 from 11.4 in October. Recent colonoscopy performed 10 days prior to admission with one 5 mm polyp removed in distal ascending colon multiple recently bleeding colonic angiectasias treated with argon plasma coagulation EGD also at that time showed grade 2 esophageal varices and erythematous mucosa in the stomach -Colonoscopy with Dr. Estrada performed this admission on 01/06: Ulcerations noted from APC 10 days prior. Visible vessel on one ulcer started to do APC and pulsatile bleeding noted. Epinephrine injected and then 2 clips placed with control of bleeding. This was the suspected source of bleeding and repeat EGD not necessary he is status post 4 units of PRBC and 1 unit of FFP upon admission Hb dropped again to 7.0 on 01/07 he was transfused another unit of PRBCs Hemoglobin then improved and stable at 7.9 Continues to have brown stool since 01/08, however hemoglobin dropped to 7.0 again on 01/10 Received another unit of PRBCs on 01/10 Hgb improved on 01/11 to 8.3 and remains stable again today, no GI bleeding in many days Ileus now much improved Appreciate GI consultation Continue to monitor CBC in the morning -adv diet as tolerated -continue Protonix 40mg po bid (2) Ileus: having some loose BMs with lactulose but had ongoing abd pain for many days, bowels distended on KUB but no obstruction -stopped lactulose and made NPO, NGT attempt x 2 not successful Now much improved, pain lessened, moving bowels, no nausea, irving clears -adv diet as irving (3) Hypotension due to blood loss: Hypotension due to acute blood loss anemia as well as due to large volume paracentesis on 01/07 Fluid resuscitation in the emergency room with 2L NSS bolus while awaiting packed RBCs. now s/p 6 units of PRBCs and 3 days of IV albumin Was on Levophed overnight on 01/07 and weaned off on 01/08 Blood pressures also improved on midodrine 2.5 mg p.o. 3 times daily-will co ntinue this for now Continue holding home nadolol Was downgraded out of the ICU on 01/08 Now status post 4 L paracentesis on 01/07, again 4L removed on 01/09 and 5L on 01/11-no further hypotension - IV albumin now discontinued -continue IV Lasix 20 mg twice daily and spironolactone 100 mg once daily (4) Acute kidney failure: Secondary to hypovolemia and low hemoglobin/hemorrhagic shock. no signs of obstruction on CT abdomen/pelvis UA negative for granular casts Cr peaked at 3.1 and now continuing to improve daily, down to 2.6 and then stable again today after receiving IV albumin and PRBC transfusions Non-oliguric Appreciate nephrology consultation met acidosis improved on sodium bicarbonate drip which has since been discontinued Follow BMP in the morning No need for octreotide at this point his creatinine is trending down with conservative management Keep hgb >8.0 -continue IV Lasix and spironolactone for significant symptomatic ascites Follow urine output, maintain Rausch for now but possible dc of Rausch tomorrow (5) Esophageal varices: Grade 2 esophageal varices noted on recent EGD 10 days prior to admission no hematemesis source of bleeding noted on colonoscopy so bleeding varices unlikely Home nadolol is currently on hold-of note, propranolol is also on his home medication list-we will need to figure out which when he is actually taking (6) Liver cirrhosis: Hepatitis C, post-treatment (unknown details regarding this) History of hepatic encephalopathy however current mentation normal even with low blood pressure and acute blood loss anemia. With elevated INR at 1.6, platelets low but improved at 74, sodium normal at 142, total bilirubin elevated at 2.3 with ascites, Dr. Haque performed US guided paracentesis on 01/07, 4 liters drained, fluid sent for analysis-no evidence of SBP on cell count, culture negative -With tense ascites and abdominal pain -has had serial paracentesis with 4 L removed on 01/07, 01/09, and 5L removed on 01/11 -received IV albumin as above -Ammonia level normal at 26 during the period of confusion on 01/09 which is likely due to excessive Dilaudid use -Eventually restart nadolol -continue Lasix, and Aldactone -needs continued outpt GI follow up (7) Hepatitis C: As above (8) BPH (benign prostatic hyperplasia): continue Flomax -Continue finasteride Rausch catheter in place-we will continue to reassess daily if can be removed- continue for now given ongoing renal failure (9) Diabetes: Historical diagnosis. HbA1c 4.8 in August 2020. Glucose 152 on arrival likely acutely raised with stress. Monitor BSG ACHS with insulin sliding scale would recommend stopping Metformin as an outpatient (10) Aortic aneurysm: Notable history of this (11) Peripheral neuropathy: Chronic pain possibly from lumbar degenerative disease versus diabetes. Restart gabapentin once renal failure improves. (12) Malignant neoplasm of prostate: Status post radiation Follows with [place] urology. Outside note reports having Lupron injections. (13) CAD (coronary artery disease): Follows with cardiology in [place]. Previous stents with last 9 drug- eluting stent placed to mid LAD in 2018. Unable to take antiplatelets due to GI bleeds. Restart beta-klaudia when blood pressure /GI bleed stable. Continue atorvastatin (14) Abdominal ascites: As above, status post paracentesis x3 for total of 13L removed this week continue Lasix and Aldactone as above Okay to continue low doses of IV Dilaudid 0.25mg to 3 hours as needed abdominal pain with caution and watch for confusion Improved significantly (15) COPD (chronic obstructive pulmonary disease): Continue maintenance inhaler No acute issues (16) Metabolic acidosis: As above, serum bicarbonate now normalized have since discontinued sodium bicarbonate drip Follow BMP in the morning (17) DVT prophylaxis: SCDs Chemical anticoagulation contraindicated due to GI bleeding Disposition-downgrade to medical floor--> if still needing hospitalization past Friday, [place] wants him transferred to [facility]. Tried to transfer - Friday but no beds available Overall improving. Will need rehab upon discharge, perhaps at [place] Conditional code-no CPR or shocks but desires intubation Admission and Anticipated Discharge Date Admission Date: January 06, 2021 Subjective Pt says he feels so much better today, much less abd pain, moved bowels this AM. No nausea and irving clear liquids diet. NGT placement attempted twice yesterday evening without success but now improved so not needed. Was OOB to chair this AM for a bit and then had lower back pain so go tback into bed. Tele with NSR, PVCs, rates 70-80s Review of Systems Review of Systems: All systems reviewed & are unremarkable except as noted in HPI & below Physical Exam Constitutional: WD/WN, vitals as above Eyes: + anicteric sclerae Neck: trachea midline, no thyromegaly Respiratory: normal respiratory effort, lungs clear to auscultation Cardiovascular: Rate/Rhythm: regular rate and regular rhythm Heart Sounds: no murmur Extremities: no edema (resolved) Chest (Breasts): Chest: normal inspection of chest Gastrointestinal (Abdomen): Inspection/Auscultation: + abdomen distended (mild-moderately distended, much improved from previous), normal bowel sounds and + abdominal surgical incision (Large scar in the right upper quadrant) Percussion/Palpation: + abdomen tender (milved from previous), abdomen soft (much softer than previously) and + ascites; no guarding Musculoskeletal: Extremities: extremities normal to inspection; no cyanosis and no clubbing Skin: no rashes, warm and dry Neurologic: moves all extremities and awake; no focal motor deficits and not confused Speech / Cognition: normal speech Psychiatric: Orientation: alert, oriented to person, oriented to place and cooperative; + not oriented to time Lymphatic: no lymphedema Results & Data Results & Data ([facility]) Vital Signs (Past 12 Hours) Vital Signs Temp Pulse Pulse Resp BP BP Pulse Ox 01/13/21 08:00 71 01/13/21 07:33 36.8 C 89 18 132/69 96 01/13/21 02:57 37.1 C 78 16 117/74 90 01/13/21 00:00 78 Laboratory Results 01/13/21 01/13/21 01/13/21 Range/Units 11:33 07:36 05:59 WBC (4.8-10.8) K/uL RBC (4.7-6.1) M/uL Hgb (14.0-18.0) g/dL Hct (42-52) % MCV (80-100) fL MCH (25-34) pg MCHC (32-36) g/dL RDW Std Deviation (36.4-46.3) fL RDW Coeff of Anderson (11.5-14.5) % Plt Count (130-400) K/uL MPV (7.4-10.4) fL Sodium (136-145) mmol/L Potassium (3.5-5.1) mmol/L Chloride (98-107) mmol/L Carbon Dioxide (21-32) mmol/L Anion Gap (3-11) BUN (7-18) mg/dl Creatinine (0.6-1.4) mg/dl Est Cr Clr Drug Dosing ml/min Est GFR ( Amer) Est GFR (Non-Af Amer) BUN/Creatinine Ratio (10-20) Glucose (70-99) mg/dl POC Glucose 146 H 122 H 118 H (70-99) mg/dl Calcium (8.5-10.1) mg/dl Phosphorus (2.5-4.9) mg/dl Magnesium (1.8-2.4) mg/dl Total Bilirubin (0.2-1) mg/dl AST (15-37) U/L ALT (12-78) U/L Alkaline Phosphatase (45-117) U/L Total Protein (6.4-8.2) gm/dl Albumin (3.4-5.0) gm/dl Globulin (2.5-4.0) gm/dl Albumin/Globulin Ratio (0.9-2) Urine Color Urine Appearance (Clear) Urine pH (4.5-7.5) Ur Specific [place] (1.000-1.030) Urine Protein (Negative) Urine Glucose (UA) (Negative) Urine Ketones (Negative) Urine Blood (Negative) Urine Nitrite (Negative) Urine Bilirubin (Negative) Urine Urobilinogen (Negative) Ur Leukocyte Esterase (Negative) Urine WBC (Auto) (0-5) /hpf Urine RBC (Auto) (0-4) /hpf U Hyaline Cast (Auto) (0-5) /lpf U Epithel Cells (Auto) (0-5) /lpf Urine Bacteria (Auto) (Negative) Ur Random Creatinine mg/dl U Random Total Protein (0-11.9) mg/dl Protein/Creatinin Ratio (0-0.2) Crossmatch 01/13/21 01/13/21 01/12/21 Range/Units 05:34 05:34 23:53 WBC 4.10 L (4.8-10.8) K/uL RBC 2.71 L (4.7-6.1) M/uL Hgb 8.1 L (14.0-18.0) g/dL Hct 24.5 L (42-52) % MCV 90.4 (80-100) fL MCH 29.9 (25-34) pg MCHC 33.1 (32-36) g/dL RDW Std Deviation 57.8 H (36.4-46.3) fL RDW Coeff of Anderson 17.8 H (11.5-14.5) % Plt Count 73 L (130-400) K/uL MPV 10.3 (7.4-10.4) fL Sodium 146 H (136-145) mmol/L Potassium 3.4 L (3.5-5.1) mmol/L Chloride 114 H (98-107) mmol/L Carbon Dioxide 23 (21-32) mmol/L Anion Gap 9.0 (3-11) BUN 22 H (7-18) mg/dl Creatinine 2.66 H (0.6-1.4) mg/dl Est Cr Clr Drug Dosing 28.4 ml/min Est GFR ( Amer) 27.0 Est GFR (Non-Af Amer) 23.3 BUN/Creatinine Ratio 8.4 L (10-20) Glucose 108 H (70-99) mg/dl POC Glucose 137 H (70-99) mg/dl Calcium 8.3 L (8.5-10.1) mg/dl Phosphorus 2.4 L (2.5-4.9) mg/dl Magnesium 1.7 L (1.8-2.4) mg/dl Total Bilirubin 1.8 H (0.2-1) mg/dl AST 23 (15-37) U/L ALT 12 (12-78) U/L Alkaline Phosphatase 52 (45-117) U/L Total Protein 5.6 L (6.4-8.2) gm/dl Albumin 3.1 L (3.4-5.0) gm/dl Globulin 2.5 (2.5-4.0) gm/dl Albumin/Globulin Ratio 1.2 (0.9-2) Urine Color Urine Appearance (Clear) Urine pH (4.5-7.5) Ur Specific [place] (1.000-1.030) Urine Protein (Negative) Urine Glucose (UA) (Negative) Urine Ketones (Negative) Urine Blood (Negative) Urine Nitrite (Negative) Urine Bilirubin (Negative) Urine Urobilinogen (Negative) Ur Leukocyte Esterase (Negative) Urine WBC (Auto) (0-5) /hpf Urine RBC (Auto) (0-4) /hpf U Hyaline Cast (Auto) (0-5) /lpf U Epithel Cells (Auto) (0-5) /lpf Urine Bacteria (Auto) (Negative) Ur Random Creatinine mg/dl U Random Total Protein (0-11.9) mg/dl Protein/Creatinin Ratio (0-0.2) Crossmatch 01/12/21 01/12/21 01/12/21 Range/Units 19:18 15:48 13:20 WBC (4.8-10.8) K/uL RBC (4.7-6.1) M/uL Hgb (14.0-18.0) g/dL Hct (42-52) % MCV (80-100) fL MCH (25-34) pg MCHC (32-36) g/dL RDW Std Deviation (36.4-46.3) fL RDW Coeff of Anderson (11.5-14.5) % Plt Count (130-400) K/uL MPV (7.4-10.4) fL Sodium (136-145) mmol/L Potassium (3.5-5.1) mmol/L Chloride (98-107) mmol/L Carbon Dioxide (21-32) mmol/L Anion Gap (3-11) BUN (7-18) mg/dl Creatinine (0.6-1.4) mg/dl Est Cr Clr Drug Dosing ml/min Est GFR ( Amer) Est GFR (Non-Af Amer) BUN/Creatinine Ratio (10-20) Glucose (70-99) mg/dl POC Glucose 135 H 130 H (70-99) mg/dl Calcium (8.5-10.1) mg/dl Phosphorus (2.5-4.9) mg/dl Magnesium (1.8-2.4) mg/dl Total Bilirubin (0.2-1) mg/dl AST (15-37) U/L ALT (12-78) U/L Alkaline Phosphatase (45-117) U/L Total Protein (6.4-8.2) gm/dl Albumin (3.4-5.0) gm/dl Globulin (2.5-4.0) gm/dl Albumin/Globulin Ratio (0.9-2) Urine Color Urine Appearance (Clear) Urine pH (4.5-7.5) Ur Specific [place] (1.000-1.030) Urine Protein (Negative) Urine Glucose (UA) (Negative) Urine Ketones (Negative) Urine Blood (Negative) Urine Nitrite (Negative) Urine Bilirubin (Negative) Urine Urobilinogen (Negative) Ur Leukocyte Esterase (Negative) Urine WBC (Auto) (0-5) /hpf Urine RBC (Auto) (0-4) /hpf U Hyaline Cast (Auto) (0-5) /lpf U Epithel Cells (Auto) (0-5) /lpf Urine Bacteria (Auto) (Negative) Ur Random Creatinine 78.9 mg/dl U Random Total Protein 53.9 H (0-11.9) mg/dl Protein/Creatinin Ratio 0.7 H (0-0.2) Crossmatch 01/12/21 01/10/21 Range/Units 13:20 07:54 WBC (4.8-10.8) K/uL RBC (4.7-6.1) M/uL Hgb (14.0-18.0) g/dL Hct (42-52) % MCV (80-100) fL MCH (25-34) pg MCHC (32-36) g/dL RDW Std Deviation (36.4-46.3) fL RDW Coeff of Anderson (11.5-14.5) % Plt Count (130-400) K/uL MPV (7.4-10.4) fL Sodium (136-145) mmol/L Potassium (3.5-5.1) mmol/L Chloride (98-107) mmol/L Carbon Dioxide (21-32) mmol/L Anion Gap (3-11) BUN (7-18) mg/dl Creatinine (0.6-1.4) mg/dl Est Cr Clr Drug Dosing ml/min Est GFR ( Amer) Est GFR (Non-Af Amer) BUN/Creatinine Ratio (10-20) Glucose (70-99) mg/dl POC Glucose (70-99) mg/dl Calcium (8.5-10.1) mg/dl Phosphorus (2.5-4.9) mg/dl Magnesium (1.8-2.4) mg/dl Total Bilirubin (0.2-1) mg/dl AST (15-37) U/L ALT (12-78) U/L Alkaline Phosphatase (45-117) U/L Total Protein (6.4-8.2) gm/dl Albumin (3.4-5.0) gm/dl Globulin (2.5-4.0) gm/dl Albumin/Globulin Ratio (0.9-2) Urine Color Yellow Urine Appearance Clear (Clear) Urine pH 5.0 (4.5-7.5) Ur Specific [place] 1.014 (1.000-1.030) Urine Protein 1+ H (Negative) Urine Glucose (UA) Negative (Negative) Urine Ketones Negative (Negative) Urine Blood 2+ H (Negative) Urine Nitrite Negative (Negative) Urine Bilirubin Negative (Negative) Urine Urobilinogen Negative (Negative) Ur Leukocyte Esterase Negative (Negative) Urine WBC (Auto) 1-5 (0-5) /hpf Urine RBC (Auto) >30 H (0-4) /hpf U Hyaline Cast (Auto) 1-5 (0-5) /lpf U Epithel Cells (Auto) 0-5 (0-5) /lpf Urine Bacteria (Auto) Negative (Negative) Ur Random Creatinine mg/dl U Random Total Protein (0-11.9) mg/dl Protein/Creatinin Ratio (0-0.2) Crossmatch See Detail PG Care Time/CCT Total # of Minutes Spent Total Time Spent with Patient: Total time spent is greater than 50% in coordination of care (as documented) at patient's floor/unit and/or counseling patient: Coding Level of Care Code 50454 Subseq Hosp Care Lvl 3 Diagnoses Acute gastrointestinal bleeding K92.2 Ileus K56.7 Hypotension due to blood loss I95.89 Acute kidney failure N17.9 Esophageal varices I85.00 Liver cirrhosis K74.60; R18.8 Ascites presence: with ascites Hepatic cirrhosis type: unspecified hepatic cirrhosis Hepatitis C B19.20 BPH (benign prostatic hyperplasia) N40.0 Diabetes E13.69 Diabetes mellitus complication status: with other specified complication Diabetes mellitus fpc insulin use: unspecified fpc insulin use status Diabetes mellitus type: other specified (including JC) Aortic aneurysm I71.9 Peripheral neuropathy G62.9 Malignant neoplasm of prostate C61 CAD (coronary artery disease) I25.10 Abdominal ascites R18.8 Ascites type: other type COPD (chronic obstructive pulmonary disease) J44.9 Metabolic acidosis E87.2 DVT prophylaxis Z29.9 (1) Liver cirrhosis Ascites presence: with ascites Hepatic cirrhosis type: unspecified hepatic cirrhosis Qualified Code(s): K74.60 - Unspecified cirrhosis of liver; R18.8 - Other ascites (2) Diabetes Diabetes mellitus complication status: with other specified complication Diabetes mellitus machine long goods helper insulin use: unspecified machine long goods helper insulin use status Diabetes mellitus type: other specified (including JC) Qualified Code(s): E13.69 - Other specified diabetes mellitus with other specified complication (3) Abdominal ascites Ascites type: other type Qualified Code(s): R18.8 - Other ascites
[2021-01-13] MEDS ORDERED: INSULIN ASPART 100 UNITS/ML 3 ML PEN SC SCH (12:00)
[2021-01-13] MEDS ORDERED: GLUCAGON FOR INJ 1 MG VIAL SQ PRN (12:07)
[2021-01-13] MEDS ORDERED: DEXTROSE 50% 50 ML SYRINGE IV PRN (12:07)
[2021-01-13] MEDS ORDERED: GLUCOSE 40% GEL 15 GM TUBE PO PRN (12:07)
[2021-01-13] MEDS ORDERED: GLUCOSE 10 TABS/TUBE PO PRN (12:07)
[2021-01-13] MEDS ORDERED: CARBOHYDRATES FOR HYPOGLYCEMIA PO PRN (12:07)
--- NOTE | 2021-01-13 14:55 | Nephrology Progress Note ---
Date of Service January 13, 2021 Assessment & Plan (1) Acute kidney injury: 70 y o m with Cirrhosis and portal hypertension admitted with GIB, Hb 6. Found to have Nonoliguric AMMY due to ? prerenal vs ATN with hypotension and 3rd spacing of fluid due to cirrhosis/portal hypertension. Baseline Cr has been 1.3 to 1.4. Peak cr 3.1,slightly improved and staying around 2.6 to 2.7, urinalysis was positive for low grade proteinuria and microscopic hematuria. noncontrast CT on 01/06/21 was negative for hydronephrosis. Initially on Octreotide, stopped as cr slightly improved. Received albumin, on Midodrine, BP improved. Had 4 L paracentesis on 01/11/21. Continued on Spironolactone 100 mg po daily and Furosemide 20 mg IV BID Renal function staying relatively stable over last few days. Electrolyte, albumin improved. BP fair. --continue on lasix 20 Mg BID, can be changed to po when po intake resumed. --monitor intake output, renal function daily for recovery. Will follow (2) Acute lower GI bleeding: * h/o radiation proctitis * Rectal vessel clipped by GI. No further LGI bleeding (3) Abdominal ascites: * s/p 4 L paracentesis 01/07/21, 01/09/21, 01/12/21 * Abdomen distended and tympanitic this am. KUB shows small & large intestinal distention. Consider NGT for decompression (4) Liver cirrhosis: * Hep C + * Documented portal HTN w/ esophageal varices Admission and Anticipated Discharge Date Admission Date: January 06, 2021 Subjective Alfredo overall feels well, except some rt LQ abdominal pain which is better than prior. Remained NPO this morning. Has been having diarrhea. Decent UO. Renal function relatively stable, cr 2.7, without much improvement. BP has been acceptable. Review of Systems Review of Systems: All systems reviewed & are unremarkable except as noted in Subjective Physical Exam Constitutional: WD/WN, vitals as above + acute distress and + ill appearing Respiratory: normal respiratory effort, lungs clear to auscultation Cardiovascular: RRR, no murmur, no edema Gastrointestinal (Abdomen): Inspection/Auscultation: normal bowel sounds Percussion/Palpation: + abdomen tender, abdomen soft and + ascites; no guarding and abdomen not rigid Rectal Exam: no rectal fissure Results & Data ([facility]) Vital Signs (Past 12 Hours) Vital Signs Temp Pulse Pulse Resp BP BP Pulse Ox 01/13/21 12:06 36.5 C 76 18 132/69 95 01/13/21 08:00 71 01/13/21 07:33 36.8 C 89 18 132/69 96 01/13/21 02:57 37.1 C 78 16 117/74 90 PG Care Time/CCT Total # of Minutes Spent Total Time Spent with Patient: Total time spent is greater than 50% in coordination of care (as documented) at patient's floor/unit and/or counseling patient: Coding Level of Care Code 25777 Subseq Hosp Care Lvl 3 Diagnoses Acute kidney injury N17.9 Acute lower GI bleeding K92.2 Abdominal ascites R18.8 Ascites type: other type Liver cirrhosis K74.60; R18.8 Ascites presence: with ascites Hepatic cirrhosis type: unspecified hepatic cirrhosis (1) Abdominal ascites Ascites type: other type Qualified Code(s): R18.8 - Other ascites (2) Liver cirrhosis Ascites presence: with ascites Hepatic cirrhosis type: unspecified hepatic cirrhosis Qualified Code(s): K74.60 - Unspecified cirrhosis of liver; R18.8 - Other ascites
[2021-01-13] MEDS: TAMSULOSIN HCL 0.4 MG CAP PO SCH (20:31)
[2021-01-13] MEDS: HYDROmorphone INJ 0.5 MG/0.5 ML SYR IV PRN (21:53)
[2021-01-14] MEDS: HYDROmorphone INJ 0.5 MG/0.5 ML SYR IV PRN ×4 (01:08→22:59)
[2021-01-14 05:56] LABS: Hematocrit (blood only) 25.2 % (42-52); Hemoglobin 8.5 g/dL (14.0-18.0); Mean Corpuscular Hemoglobin 30.7 pg (25-34); Mean Corpuscular Hgb Conc 33.7 g/dL (32-36); RDW Coefficient of Variation 17.9 % (11.5-14.5); RDW Standard Deviation 58.4 fL (36.4-46.3); Red Blood Count 2.77 M/uL (4.7-6.1); White Blood Count 4.05 K/uL (4.8-10.8)
[2021-01-14 06:03] LABS: Mean Platelet Volume 9.9 fL (7.4-10.4); Platelet Count 74 K/uL (130-400)
[2021-01-14 06:19] LABS: Acanthocytes 1+; Basophils # (auto) 0.05 K/uL (0-0.2); Basophils % (auto) 1.2 %; Eosinophils % (auto) 12.3 %; Giant Platelets 1+; Lymphocytes # (auto) 0.55 K/uL (1.2-3.4); Lymphocytes % (auto) 13.6 %; Monocytes # (auto) 0.54 K/uL (0.11-0.59); Monocytes % (auto) 13.3 %; Neutrophils # (auto) 2.41 K/uL (1.4-6.5); Neutrophils % (auto) 59.6 %; Ovalocytes 1+
[2021-01-14 06:32] LABS: BUN Creatinine Ratio 10.5 (10-20); Calcium 8.1 mg/dl (8.5-10.1); Creatinine Clr Calc Pharmacy 32.9 ml/min; Est GFR (African American) 29.3; Est GFR (Non-African American) 25.3; Magnesium 1.9 mg/dl (1.8-2.4); Phosphorus 2.4 mg/dl (2.5-4.9); Potassium 3.5 mmol/L (3.5-5.1)
[2021-01-14] MEDS: ATORVASTATIN 20 MG TAB PO SCH (09:10)
[2021-01-14] MEDS: SPIRONOLACTONE 100 MG TAB PO SCH (09:10)
[2021-01-14] MEDS: CYANOCOBALAMIN 500 MCG TABLET (VITAMIN B-12) PO SCH (09:10)
[2021-01-14] MEDS: MIDODRINE HCL 2.5 MG TAB PO SCH ×3 (09:10→17:42)
[2021-01-14] MEDS: FOLIC ACID 1 MG TAB PO SCH (09:10)
[2021-01-14] MEDS: PANTOprazole 40 MG TAB PO SCH ×2 (09:10→19:30)
[2021-01-14] MEDS: UMECLIDINIUM BROMIDE 62.5MCG/BLISTER 7 PUFFS/INHALER INH SCH (09:10)
[2021-01-14] MEDS: FUROSEMIDE 20 MG in SYRINGE 0 ML IV SCH (09:10)
[2021-01-14] MEDS: FINASTERIDE 5 MG TAB PO SCH (09:10)
[2021-01-14] MEDS: INSULIN ASPART 100 UNITS/ML 3 ML PEN SC SCH ×4 (09:17→21:16)
--- NOTE | 2021-01-14 12:31 | Progress Notes ---
DATE: 01/14/2021 SUBJECTIVE: The patient reports no further GI bleeding and his blood count has remained stable at hemoglobin 8.5. The patient reports that between 6:00 and 8:00 this morning, he passed a tremendous amount of gas continuously pretty much for 2 hours and his belly has become less distended and less tender. He is tolerating a liquid diet and continues to have a positive urine output of 610 mL over the last 24 hours on Lasix IV 20 mg b.i.d. and spironolactone 100 mg p.o. in the morning. Kidney function has also improved slightly with BUN of 26, creatinine of 2.48. OBJECTIVE: VITAL SIGNS: Show blood pressure of 96/64, pulse 81, temperature 36.7, room air saturation 93%. ABDOMEN: Distended somewhat, but much softer and still slightly tympanitic. IMPRESSION AND PLAN: The patient's ileus is resolving. I encouraged the patient to move around in bed and to get up out of bed as much as possible to increase his mobility and move the gas through. Hopefully, with increased activity and p.o. intake, his ileus will resolve. He has had no further gastrointestinal bleeding, which is encouraging. His kidney function still needs to recover somewhat. We are still awaiting a bed at the [facility] in [place].
--- NOTE | 2021-01-14 12:31 | Hospitalist Progress Note ---
Date of Service January 14, 2021 Assessment & Plan (1) Acute gastrointestinal bleeding: Acute blood loss anemia with hemoglobin 6.0 from 11.4 in October. Recent colonoscopy performed 10 days prior to admission with one 5 mm polyp removed in distal ascending colon multiple recently bleeding colonic angiectasias treated with argon plasma coagulation EGD also at that time showed grade 2 esophageal varices and erythematous mucosa in the stomach -Colonoscopy with Dr. Estrada performed this admission on 01/06: Ulcerations noted from APC 10 days prior. Visible vessel on one ulcer started to do APC and pulsatile bleeding noted. Epinephrine injected and then 2 clips placed with control of bleeding. This was the suspected source of bleeding and repeat EGD not necessary he is status post 4 units of PRBC and 1 unit of FFP upon admission Hb dropped again to 7.0 on 01/07 he was transfused another unit of PRBCs Hemoglobin then improved and stable at 7.9 Continues to have brown stool since 01/08, however hemoglobin dropped to 7.0 again on 01/10 Received another unit of PRBCs on 01/10 Hgb improved on 01/11 to 8.3 and remains stable for 2 days, no GI bleeding in many days Ileus now resolved-advance diet to regular Appreciate GI consultation Continue to monitor CBC in the morning -continue Protonix 40mg po bid (2) Acute kidney failure: Secondary to hypovolemia and low hemoglobin/hemorrhagic shock. no signs of obstruction on CT abdomen/pelvis UA negative for granular casts Baseline rehabilitation engineer 1.2-1.3 Cr peaked at 3.1 and now slowly continues to improve daily, down to 2.4 -has received several days of IV albumin and PRBC transfusions Non-oliguric Appreciate nephrology consultation met acidosis improved on sodium bicarbonate drip which has since been discontinued Follow BMP in the morning No need for octreotide at this point his creatinine is trending down with conservative management Keep hgb >8.0 -continue Lasix but convert to po and spironolactone for significant symptomatic ascites which is improved Follow urine output, maintain Rausch for now (3) Ileus: Finally much improved after reduction in ascites. Abd pain is significantly improved, is passing a lot of flatus, having BMs, no N/V, irving full liquids -adv diet to regular KUB no obstruction (4) Hypotension due to blood loss: Hypotension due to acute blood loss anemia as well as due to large volume paracentesis on 01/07 Fluid resuscitation in the emergency room with 2L NSS bolus while awaiting packed RBCs. now s/p 6 units of PRBCs and 3 days of IV albumin Was on Levophed overnight on 01/07 and weaned off on 01/08 Blood pressures also improved on midodrine 2.5 mg p.o. 3 times daily-will continue this for now Continue holding home nadolol Was downgraded out of the ICU on 01/08 Now status post 4 L paracentesis on 01/07, again 4L removed on 01/09 and 5L on 01/11-no further hypotension - IV albumin now discontinued -continue Lasix 20 mg twice daily and converting IV to po today; continue spironolactone 100 mg once daily (5) Esophageal varices: Grade 2 esophageal varices noted on recent EGD 10 days prior to admission no hematemesis source of bleeding noted on colonoscopy so bleeding varices unlikely Home nadolol is currently on hold-of note, propranolol is also on his home medication list-we will need to figure out which when he is actually taking (6) Liver cirrhosis: Hepatitis C, post-treatment (unknown details regarding this) History of hepatic encephalopathy however current mentation normal even with low blood pressure and acute blood loss anemia. With elevated INR at 1.6, platelets low but improved at 74, sodium normal at 145, total bilirubin elevated at 1.8 with ascites, Dr. Haque performed US guided paracentesis on 01/07, 4 liters drained, fluid sent for analysis-no evidence of SBP on cell count, culture negative -With tense ascites and abdominal pain -has had serial paracentesis with 4 L removed on 01/07, 01/09, and 5L removed on 01/11 Overall much improved -received IV albumin as above -Ammonia level normal at 26 during the period of confusion on 01/09 which is likely due to excessive Dilaudid use -Eventually restart nadolol if BP can tolerate -continue Lasix, and Aldactone -needs continued outpt GI follow up as outpt (7) Hepatitis C: As above (8) BPH (benign prostatic hyperplasia): continue Flomax -Continue finasteride Rausch catheter in place-we will continue to reassess daily if can be removed- continue for now given ongoing renal failure (9) Diabetes: Historical diagnosis. HbA1c 4.8 in August 2020. Glucose 152 on arrival l ikely acutely raised with stress. Monitor BSG ACHS with insulin sliding scale would recommend stopping Metformin as an outpatient (10) Aortic aneurysm: Notable history of this (11) Peripheral neuropathy: Chronic pain possibly from lumbar degenerative disease versus diabetes. Restart gabapentin once renal failure improves although doesn't seem to be having issues off of it for now (12) Malignant neoplasm of prostate: Status post radiation Follows with [place] [facility]. Outside note reports having Lupron injections. (13) CAD (coronary artery disease): Follows with cardiology in [place]. Previous stents with last 9 drug-elu ting stent placed to mid LAD in 2018. Unable to take antiplatelets due to GI bleeds. Restart beta-klaudia when blood pressure /GI bleed stable. Continue atorvastatin (14) Abdominal ascites: As above, status post paracentesis x3 for total of 13L removed this week continue Lasix and Aldactone as above Okay to continue low doses of IV Dilaudid 0.25mg to 3 hours as needed abdominal pain with caution and watch for confusion Improved significantly (15) COPD (chronic obstructive pulmonary disease): Continue maintenance inhaler No acute issues (16) Metabolic acidosis: As above, serum bicarbonate now normalized have since discontinued sodium bicarbonate drip Follow BMP in the morning (17) DVT prophylaxis: SCDs Chemical anticoagulation contraindicated due to GI bleeding Disposition-continued stay on medical floor--> if still needing hospitalization past Friday, [place] wants him transferred [facility]. Tried to transfer -Friday but no beds available and was here through the weekend Overall improving. Will need rehab upon discharge, perhaps at [place], PT/OT kennedy pending Conditional code-no CPR or shocks but desires intubation Admission and Anticipated Discharge Date Admission Date: January 06, 2021 Subjective Pt feels great today. Reports he had abd pains through the night and then he passed flatulence for 2 hours straight this AM and now feels the best he has all week. He is eating and denies SOB, no CP. Wants to get out of bed again today. Mentation is very clear, clearest it's been all week. Review of Systems Review of Systems: All systems reviewed & are unremarkable except as noted in HPI & below Physical Exam Constitutional: WD/WN, vitals as above Eyes: + anicteric sclerae Neck: trachea midline, no thyromegaly Respiratory: normal respiratory effort, lungs clear to auscultation Cardiovascular: RRR, no murmur, no edema Gastrointestinal (Abdomen): Inspection/Auscultation: + abdomen distended (mild-moderately distended, much improved from previous), normal bowel sounds and + abdominal surgical incision (Large scar in the right upper quadrant) Percussion/Palpation: + abdomen tender (milved from previous), abdomen soft (much softer than previously) and + ascites; no guarding Musculoskeletal: Extremities: extremities normal to inspection; no cyanosis and no clubbing Skin: no rashes, warm and dry Neurologic: moves all extremities and awake; no focal motor deficits and not confused Speech / Cognition: normal speech Psychiatric: A+Ox3, euthymic affect Lymphatic: no lymphedema Results & Data Results & Data ([facility]) Vital Signs (Past 12 Hours) Vital Signs Temp Pulse Resp BP Pulse Ox 01/14/21 07:25 36.7 C 81 18 96/64 L 93 Laboratory Results 01/14/21 01/14/21 01/14/21 Range/Units 12:05 08:09 05:21 WBC (4.8-10.8) K/uL RBC (4.7-6.1) M/uL Hgb (14.0-18.0) g/dL Hct (42-52) % MCV (80-100) fL MCH (25-34) pg MCHC (32-36) g/dL RDW Std Deviation (36.4-46.3) fL RDW Coeff of Anderson (11.5-14.5) % Plt Count (130-400) K/uL MPV (7.4-10.4) fL Immature Gran % (Auto) % Neut % (Auto) % Lymph % (Auto) % Ada % (Auto) % Eos % (Auto) % Baso % (Auto) % Neut # (Auto) (1.4-6.5) K/uL Lymph # (Auto) (1.2-3.4) K/uL Ada # (Auto) (0.11-0.59) K/uL Eos # (Auto) (0-0.5) K/uL Baso # (Auto) (0-0.2) K/uL Immature Gran # (Auto) (0.00-0.02) K/uL Giant Platelets Ovalocytes Acanthocytes (Spur) Sodium 145 (136-145) mmol/L Potassium 3.5 (3.5-5.1) mmol/L Chloride 114 H (98-107) mmol/L Carbon Dioxide 24 (21-32) mmol/L Anion Gap 7.0 (3-11) BUN 26 H (7-18) mg/dl Creatinine 2.48 H (0.6-1.4) mg/dl Est Cr Clr Drug Dosing 32.9 ml/min Est GFR ( Amer) 29.3 Est GFR (Non-Af Amer) 25.3 BUN/Creatinine Ratio 10.5 (10-20) Glucose 109 H (70-99) mg/dl POC Glucose 123 H 116 H (70-99) mg/dl Calcium 8.1 L (8.5-10.1) mg/dl Phosphorus 2.4 L (2.5-4.9) mg/dl Magnesium 1.9 (1.8-2.4) mg/dl 01/14/21 01/13/21 01/13/21 Range/Units 05:21 20:40 17:26 WBC 4.05 L (4.8-10.8) K/uL RBC 2.77 L (4.7-6.1) M/uL Hgb 8.5 L (14.0-18.0) g/dL Hct 25.2 L (42-52) % MCV 91.0 (80-100) fL MCH 30.7 (25-34) pg MCHC 33.7 (32-36) g/dL RDW Std Deviation 58.4 H (36.4-46.3) fL RDW Coeff of Anderson 17.9 H (11.5-14.5) % Plt Count 74 L (130-400) K/uL MPV 9.9 (7.4-10.4) fL Immature Gran % (Auto) 0.0 % Neut % (Auto) 59.6 % Lymph % (Auto) 13.6 % Ada % (Auto) 13.3 % Eos % (Auto) 12.3 % Baso % (Auto) 1.2 % Neut # (Auto) 2.41 (1.4-6.5) K/uL Lymph # (Auto) 0.55 L (1.2-3.4) K/uL Ada # (Auto) 0.54 (0.11-0.59) K/uL Eos # (Auto) 0.50 (0-0.5) K/uL Baso # (Auto) 0.05 (0-0.2) K/uL Immature Gran # (Auto) 0.00 (0.00-0.02) K/uL Giant Platelets 1+ Ovalocytes 1+ Acanthocytes (Spur) 1+ Sodium (136-145) mmol/L Potassium (3.5-5.1) mmol/L Chloride (98-107) mmol/L Carbon Dioxide (21-32) mmol/L Anion Gap (3-11) BUN (7-18) mg/dl Creatinine (0.6-1.4) mg/dl Est Cr Clr Drug Dosing ml/min Est GFR ( Amer) Est GFR (Non-Af Amer) BUN/Creatinine Ratio (10-20) Glucose (70-99) mg/dl POC Glucose 129 H 125 H (70-99) mg/dl Calcium (8.5-10.1) mg/dl Phosphorus (2.5-4.9) mg/dl Magnesium (1.8-2.4) mg/dl PG Care Time/CCT Total # of Minutes Spent Total Time Spent with Patient: Total time spent is greater than 50% in coordination of care (as documented) at patient's floor/unit and/or counseling patient: Coding Level of Care Code 81214 Subseq Hosp Care Lvl 2 Diagnoses Acute gastrointestinal bleeding K92.2 Acute kidney failure N17.9 Ileus K56.7 Hypotension due to blood loss I95.89 Esophageal varices I85.00 Liver cirrhosis K74.60; R18.8 Ascites presence: with ascites Hepatic cirrhosis type: unspecified hepatic cirrhosis Hepatitis C B19.20 BPH (benign prostatic hyperplasia) N40.0 Diabetes E13.69 Diabetes mellitus complication status: with other specified complication Diabetes mellitus potato seed cutter insulin use: unspecified potato seed cutter insulin use status Diabetes mellitus type: other specified (including JC) Aortic aneurysm I71.9 Peripheral neuropathy G62.9 Malignant neoplasm of prostate C61 CAD (coronary artery disease) I25.10 Abdominal ascites R18.8 Ascites type: other type COPD (chronic obstructive pulmonary disease) J44.9 Metabolic acidosis E87.2 DVT prophylaxis Z29.9 (1) Liver cirrhosis Ascites presence: with ascites Hepatic cirrhosis type: unspecified hepatic cirrhosis Qualified Code(s): K74.60 - Unspecified cirrhosis of liver; R18.8 - Other ascites (2) Diabetes Diabetes mellitus complication status: with other specified complication Diabetes mellitus skilled nursing insulin use: unspecified skilled nursing insulin use status Diabetes mellitus type: other specified (including JC) Qualified Code(s): E13.69 - Other specified diabetes mellitus with other specified complication (3) Abdominal ascites Ascites type: other type Qualified Code(s): R18.8 - Other ascites
--- NOTE | 2021-01-14 12:35 | Nephrology Progress Note ---
Date of Service January 14, 2021 Assessment & Plan (1) Acute kidney injury: 70 y o m with Cirrhosis and portal hypertension admitted with GIB, Hb 6. Found to have Nonoliguric AMMY due to ? prerenal vs ATN with hypotension and 3rd spacing of fluid due to cirrhosis/portal hypertension. Baseline Cr has been 1.3 to 1.4. Peak cr 3.1,slightly improved and staying around 2.6 to 2.7, urinalysis was positive for low grade proteinuria and microscopic hematuria. noncontrast CT on 01/06/21 was negative for hydronephrosis. Initially on Octreotide, stopped as cr slightly improved. Received albumin, on Midodrine, BP improved. Had 4 L paracentesis on 01/11/21. Continued on Spironolactone 100 mg po daily and Furosemide 20 mg IV BID Renal function slightly improved, cr 2.5, Electrolyte acceptable, albumin improved. BP fair. --Change Lasix to 20 mg p.o. b.i.d. --monitor intake output, renal function daily for recovery. Will follow (2) Acute lower GI bleeding: (3) Abdominal ascites: (4) Liver cirrhosis: Admission and Anticipated Discharge Date Admission Date: January 06, 2021 Subjective Alfredo overall feels well. He has been tolerating oral diet since yesterday, abdominal pain much improved after he passed gas. Decent UO. Renal function slightly improved to creatinine 2.5, electrolyte acceptable. BP has been Low but asymptomatic. Review of Systems Review of Systems: All systems reviewed & are unremarkable except as noted in Subjective Physical Exam Constitutional: WD/WN, vitals as above + acute distress and + ill appearing Respiratory: normal respiratory effort, lungs clear to auscultation Cardiovascular: RRR, no murmur, no edema Gastrointestinal (Abdomen): Inspection/Auscultation: normal bowel sounds Percussion/Palpation: abdomen soft and + ascites; abdomen nontender, no guarding and abdomen not rigid Results & [facility] ([facility]) Vital Signs (Past 12 Hours) Vital Signs Temp Pulse Resp BP Pulse Ox 01/14/21 07:25 36.7 C 81 18 96/64 L 93 PG Care Time/CCT Total # of Minutes Spent Total Time Spent with Patient: Total time spent is greater than 50% in coordination of care (as documented) at patient's floor/unit and/or counseling patient: Coding Level of Care Code 33745 Subseq Hosp Care Lv 3 Diagnoses Acute kidney injury N17.9 Acute lower GI bleeding K92.2 Abdominal ascites R18.8 Ascites type: other type Liver cirrhosis K74.60; R18.8 Ascites presence: with ascites Hepatic cirrhosis type: unspecified hepatic cirrhosis (1) Abdominal ascites Ascites type: other type Qualified Code(s): R18.8 - Other ascites (2) Liver cirrhosis Ascites presence: with ascites Hepatic cirrhosis type: unspecified hepatic cirrhosis Qualified Code(s): K74.60 - Unspecified cirrhosis of liver; R18.8 - Other ascites
[2021-01-14] MEDS ORDERED: NURSING DECISION MEDICATION ONE (15:50)
[2021-01-14] MEDS ORDERED: ARTIFICIAL TEARS OP PRN (15:59)
[2021-01-14] MEDS: FUROSEMIDE 20 MG TAB PO SCH (17:42)
[2021-01-14] MEDS: TAMSULOSIN HCL 0.4 MG CAP PO SCH (19:31)
[2021-01-15 06:06] LABS: Hematocrit (blood only) 24.8 % (42-52); Hemoglobin 8.1 g/dL (14.0-18.0); Mean Corpuscular Hemoglobin 29.7 pg (25-34); Mean Corpuscular Hgb Conc 32.7 g/dL (32-36); Mean Corpuscular Volume 90.8 fL (80-100); RDW Coefficient of Variation 17.7 % (11.5-14.5); RDW Standard Deviation 58.3 fL (36.4-46.3); Red Blood Count 2.73 M/uL (4.7-6.1); White Blood Count 3.94 K/uL (4.8-10.8)
[2021-01-15 06:13] LABS: Mean Platelet Volume 10.2 fL (7.4-10.4); Platelet Count 81 K/uL (130-400)
[2021-01-15 06:37] LABS: BUN Creatinine Ratio 11.4 (10-20); Calcium 8.5 mg/dl (8.5-10.1); Creatinine Clr Calc Pharmacy 32.9 ml/min; Est GFR (African American) 32.3; Est GFR (Non-African American) 27.9; Potassium 3.7 mmol/L (3.5-5.1)
[2021-01-15 06:40] LABS: Albumin Globulin Ratio 1.1 (0.9-2); Bilirubin,Total 1.7 mg/dl (0.2-1); Globulin 2.8 gm/dl (2.5-4.0); Total Protein 5.8 gm/dl (6.4-8.2)
[2021-01-15 06:41] LABS: Acanthocytes 1+; Basophils # (auto) 0.02 K/uL (0-0.2); Basophils % (auto) 0.5 %; Eosinophils % (auto) 10.2 %; Giant Platelets 1+; Immature Granulocytes # (auto) 0.01 K/uL (0.00-0.02); Immature Granulocytes % (auto) 0.3 %; Lymphocytes # (auto) 0.63 K/uL (1.2-3.4); Monocytes # (auto) 0.36 K/uL (0.11-0.59); Monocytes % (auto) 9.1 %; Neutrophils # (auto) 2.52 K/uL (1.4-6.5); Neutrophils % (auto) 63.9 %; Ovalocytes 1+
[2021-01-15] MEDS: FUROSEMIDE 20 MG TAB PO SCH ×2 (08:13→16:15)
[2021-01-15] MEDS: FOLIC ACID 1 MG TAB PO SCH (08:13)
[2021-01-15] MEDS: ATORVASTATIN 20 MG TAB PO SCH (08:13)
[2021-01-15] MEDS: PANTOprazole 40 MG TAB PO SCH ×2 (08:13→21:04)
[2021-01-15] MEDS: SPIRONOLACTONE 100 MG TAB PO SCH (08:13)
[2021-01-15] MEDS: CYANOCOBALAMIN 500 MCG TABLET (VITAMIN B-12) PO SCH (08:13)
[2021-01-15] MEDS: MIDODRINE HCL 2.5 MG TAB PO SCH ×2 (08:13→12:36)
[2021-01-15] MEDS: FINASTERIDE 5 MG TAB PO SCH (08:13)
[2021-01-15] MEDS: UMECLIDINIUM BROMIDE 62.5MCG/BLISTER 7 PUFFS/INHALER INH SCH (08:14)
[2021-01-15] MEDS: HYDROmorphone INJ 0.5 MG/0.5 ML SYR IV PRN ×2 (08:19→14:36)
[2021-01-15] MEDS: INSULIN ASPART 100 UNITS/ML 3 ML PEN SC SCH ×4 (09:15→21:06)
--- NOTE | 2021-01-15 09:39 | Nephrology Progress Note ---
Date of Service January 15, 2021 Assessment & Plan (1) Acute kidney injury: 70 y o m with Cirrhosis and portal hypertension admitted with GIB, Hb 6. Found to have Nonoliguric AMMY due to ? prerenal vs ATN with hypotension and 3rd spacing of fluid due to cirrhosis/portal hypertension. Baseline Cr has been 1.3 to 1.4. Peak cr 3.1,slightly improved and staying around 2.6 to 2.7, urinalysis was positive for low grade proteinuria and microscopic hematuria. noncontrast CT on 01/06/21 was negative for hydronephrosis. Initially on Octreotide, stopped as cr slightly improved. Received albumin, on Midodrine, BP improved. Had 4 L paracentesis on 01/11/21. Continued on Spironolactone 100 mg po daily and Furosemide 20 mg IV BID Renal function continues to improve, creatinine down to 2.3 Electrolyte acceptable, albumin improved. BP fair. -- continue Lasix 20 mg p.o. b.i.d. --monitor intake output, renal function daily for recovery. -- discontinue Rausch catheter, continue to monitor intake and output. Will follow Admission and Anticipated Discharge Date Admission Date: January 06, 2021 Subjective Alfredo overall feels well. He has been tolerating oral diet since yesterday, again having abdominal pain after breakfast This morning. Decent UO. Renal function continues to improve slowly, creatinine down to 2.3, electrolyte acceptable. BP has been fair. Review of Systems Review of Systems: All systems reviewed & are unremarkable except as noted in Subjective Physical Exam Constitutional: WD/WN, vitals as above no acute distress Respiratory: normal respiratory effort, lungs clear to auscultation Cardiovascular: RRR, no murmur, no edema Gastrointestinal (Abdomen): Inspection/Auscultation: normal bowel sounds Percussion/Palpation: + abdomen tender, + guarding, abdomen soft and + ascites; abdomen not rigid Rectal Exam: no rectal fissure Results & Data ([facility]) Vital Signs (Past 12 Hours) Vital Signs Temp Pulse Resp BP Pulse Ox 01/15/21 07:19 36.7 C 80 18 141/77 H 95 01/14/21 22:47 36.9 C 81 16 120/73 92 PG Care Time/CCT Total # of Minutes Spent Total Time Spent with Patient: Total time spent is greater than 50% in coordination of care (as documented) at patient's floor/unit and/or counseling patient: Coding Level of Care Code 18010 Subseq Hosp Care Lvl 2 Diagnoses Acute kidney injury N17.9
--- NOTE | 2021-01-15 13:20 | Hospitalist Progress Note ---
Date of Service January 15, 2021 Assessment & Plan (1) Acute gastrointestinal bleeding: Acute blood loss anemia with hemoglobin 6.0 from 11.4 in October. Recent colonoscopy performed 10 days prior to admission with one 5 mm polyp removed in distal ascending colon multiple recently bleeding colonic angiectasias treated with argon plasma coagulation EGD also at that time showed grade 2 esophageal varices and erythematous mucosa in the stomach -Colonoscopy with Dr. Estrada performed this admission on 01/06: Ulcerations noted from APC 10 days prior. Visible vessel on one ulcer started to do APC and pulsatile bleeding noted. Epinephrine injected and then 2 clips placed with control of bleeding. This was the suspected source of bleeding and repeat EGD not necessary he is status post 4 units of PRBC and 1 unit of FFP upon admission Hb dropped again to 7.0 on 01/07 he was transfused another unit of PRBCs Hemoglobin then improved and stable at 7.9 Continues to have brown stool since 01/08, however hemoglobin dropped to 7.0 again on 01/10 Received another unit of PRBCs on 01/10 Hgb improved on 01/11 to 8.3 and remains stable for 2 days, no GI bleeding in many days Ileus now resolved-advance diet to regular Hb 8.1 today Appreciate GI consultation Continue to monitor CBC in the morning -continue Protonix 40mg po bid (2) Acute kidney failure: Secondary to hypovolemia and low hemoglobin/hemorrhagic shock. 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 Abd pain is significantly improved, is passing a lot of flatus, having BMs, no N/V, irving full liquids -adv diet to regular KUB no obstruction (4) Hypotension due to blood loss: Hypotension due to acute blood loss anemia as well as due to large volume paracentesis on 01/07 Fluid resuscitation in the emergency room with 2L NSS bolus while awaiting packed RBCs. now s/p 6 units of PRBCs and 3 days of IV albumin Was on Levophed overnight on 01/07 and weaned off on 01/08 Blood pressures also improved on midodrine 2.5 mg p.o. 3 times daily hypertensive, will stop midodrine and observe pressures Continue holding home nadolol Was downgraded out of the ICU on 01/08 Now status post 4 L paracentesis on 01/07, again 4L removed on 01/09 and 5L on 01/11-no further hypotension - IV albumin now discontinued -continue Lasix; continue spironolactone 100 mg once daily (5) Esophageal varices: Grade 2 esophageal varices noted on recent EGD 10 days prior to admission no hematemesis source of bleeding noted on colonoscopy so bleeding varices unlikely Home nadolol is currently on hold-of note, propranolol is also on his home medication list-we will need to figure out which when he is actually taking (6) Liver cirrhosis: Hepatitis C, post-treatment (unknown details regarding this) History of hepatic encephalopathy however current mentation normal even with low blood pressure and acute blood loss anemia. With elevated INR at 1.6, platelets low but improved at 74, sodium normal at 145, total bilirubin elevated at 1.8 with ascites, Dr. Haque performed US guided paracentesis on 01/07, 4 liters drained, fluid sent for analysis-no evidence of SBP on cell count, culture negative -With tense ascites and abdominal pain -has had serial paracentesis with 4 L removed on 01/07, 01/09, and 5L removed on 01/11 Overall much improved -received IV albumin as above -Ammonia level normal at 26 during the period of confusion on 01/09 which is likely due to excessive Dilaudid use -Eventually restart nadolol if BP can tolerate -continue Lasix, and Aldactone -needs continued outpt GI follow up as outpt (7) Hepatitis C: As above (8) BPH (benign prostatic hyperplasia): continue Flomax -Continue finasteride Horn catheter in place-we will continue to reassess daily if can be removed-continue for now given ongoing renal failure (9) Diabetes: Historical diagnosis. HbA1c 4.8 in August 2020. Glucose 152 on arrival likely acutely raised with stress. Monitor BSG ACHS with insulin sliding scale would recommend stopping Metformin as an outpatient (10) Aortic aneurysm: Notable history of this (11) Peripheral neuropathy: Chronic pain possibly from lumbar degenerative disease versus diabetes. Restart gabapentin once renal failure improves although doesn't seem to be having issues off of it for now (12) Malignant neoplasm of prostate: Status post radiation Follows with [place] [facility]. Outside note reports having Lupron injections. (13) CAD (coronary artery disease): Follows with cardiology in [place]. Previous stents with last 9 drug- eluting stent placed to mid LAD in 2018. Unable to take antiplatelets due to GI bleeds. Restart beta-klaudia when blood pressure /GI bleed stable. Continue atorvastatin (14) Abdominal ascites: As above, status post paracentesis x3 for total of 13L removed this week continue Lasix and Aldactone as above (15) COPD (chronic obstructive pulmonary disease): Continue maintenance inhaler No acute issues (16) Metabolic acidosis: As above, serum bicarbonate now normalized have since discontinued sodium bicarbonate drip Follow BMP in the morning (17) DVT prophylaxis: SCDs Chemical anticoagulation contraindicated due to GI bleeding Disposition-continued stay on medical floor--> Overall improving. try to discharge to home tomorrow but if he cannot go home will need to transfer to [facility] Conditional code-no CPR or shocks but desires intubation Admission and Anticipated Discharge Date Admission Date: January 06, 2021 Subjective patient states that he is doing well, feels a lot stronger the past few days he is motivated to get back home tomorrow, does not want to go to [facility] if not needed reviewed chart discussed with nephrology, continue Lasix, Cr slowly improving discussed with gastroenterology discussed with rn case management no dyspnea, no cough, no chest pain, no fever/chills admits to tense ascites which is normal, he has been tapped several times for 13L total Review of Systems Review of Systems: All systems reviewed & are unremarkable except as noted in Subjective Physical Exam Constitutional: well developed, well nourished and comfortable; no acute distress Neck: trachea midline, no thyromegaly Respiratory: normal respiratory effort, lungs clear to auscultation Cardiovascular: Rate/Rhythm: regular rate and regular rhythm Heart Sounds: normal S1 and normal S2; no murmur Vessels: no JVD Extremities: normal capillary refill and + edema (1+ pitting bilaterally) Gastrointestinal (Abdomen): Inspection/Auscultation: + abdomen distended and normal bowel sounds Percussion/Palpation: abdomen soft and + ascites; abdomen nontender Musculoskeletal: no cyanosis or clubbing, extremities motor strength 5/5 Skin: no rashes, warm and dry Neurologic: patellar DTR's 2+ bilat, sensation intact and PERRL, EOMI, accommodation nl, no face palsy, no dysarthria Psychiatric: A+Ox3, euthymic affect Lymphatic: no cervical or axillary lymphadenopathy Results & Data Results & Data ([facility]) Vital Signs (Past 12 Hours) Vital Signs Temp Pulse Pulse Resp BP Pulse Ox 01/15/21 08:00 71 01/15/21 07:19 36.7 C 80 18 141/77 H 95 Laboratory Results Laboratory Results - last 24 hr 01/14/21 01/14/21 01/15/21 16:59 20:33 05:43 WBC 3.94 L RBC 2.73 L Hgb 8.1 L Hct 24.8 L MCV 90.8 MCH 29.7 MCHC 32.7 RDW Std Deviation 58.3 H RDW Coeff of Anderson 17.7 H Plt Count 81 L MPV 10.2 Immature Gran % (Auto) 0.3 Neut % (Auto) 63.9 Lymph % (Auto) 16.0 [place] % (Auto) 9.1 Eos % (Auto) 10.2 Baso % (Auto) 0.5 Neut # (Auto) 2.52 Lymph # (Auto) 0.63 L [place] # (Auto) 0.36 Eos # (Auto) 0.40 Baso # (Auto) 0.02 Immature Gran # (Auto) 0.01 Giant Platelets 1+ Ovalocytes 1+ Acanthocytes (Spur) 1+ Sodium Potassium Chloride Carbon Dioxide Anion Gap BUN Creatinine Est Cr Clr Drug Dosing Est GFR ( Amer) Est GFR (Non-Af Amer) BUN/Creatinine Ratio Glucose POC Glucose 116 H 131 H Calcium Total Bilirubin AST ALT Alkaline Phosphatase Total Protein Albumin Globulin Albumin/Globulin Ratio 01/15/21 01/15/21 01/15/21 05:43 07:57 12:05 WBC RBC Hgb Hct MCV MCH MCHC RDW Std Deviation RDW Coeff of [place] Plt Count MPV Immature Gran % (Auto) Neut % (Auto) Lymph % (Auto) [place] % (Auto) Eos % (Auto) Baso % (Auto) Neut # (Auto) Lymph # (Auto) [place] # (Auto) Eos # (Auto) Baso # (Auto) Immature Gran # (Auto) Giant Platelets Ovalocytes Acanthocytes (Spur) Sodium 143 Potassium 3.7 Chloride 111 H Carbon Dioxide 23 Anion Gap 10.0 BUN 26 H Creatinine 2.29 H Est Cr Clr Drug Dosing 32.9 Est GFR ( Amer) 32.3 Est GFR (Non-Af Amer) 27.9 BUN/Creatinine Ratio 11.4 Glucose 101 H POC Glucose 106 H 129 H Calcium 8.5 Total Bilirubin 1.7 H AST 29 ALT 15 Alkaline Phosphatase 54 Total Protein 5.8 L Albumin 3.0 L Globulin 2.8 Albumin/Globulin Ratio 1.1 Medications Administered Current Inpatient Medications Artificial Tears (Artificial Tears) 1 drops OP PRN PRN PRN Reason: EYE IRRITATION Stop: 02/13/21 15:58 Atorvastatin Calcium (Atorvastatin 20 Mg Tab) [facility] [place]: 02/08/21 08:59 Last Admin: 01/15/21 08:13 Dose: 20 mg Documented by: Cyanocobalamin (Cyanocobalamin 500 Mcg Tablet (Vitamin B-12)) 500 mcg PO QAM [facility] Stop: 02/08/21 08:59 Last Admin: 01/15/21 08:13 Dose: 500 mcg Documented by: Dextrose (Dextrose 50% 50 Ml Syringe) 25 - 50 ml IV UD PRN; Protocol PRN Reason: Hypoglycemia Protocol Stop: 02/07/21 10:14 Finasteride (Finasteride 5 Mg Tab) 5 mg PO [facility] Stop: 02/08/21 08:59 Last Admin: 01/15/21 08:13 Dose: 5 mg Documented by: Folic Acid (Folic Acid 1 Mg Tab) 1 mg PO QAM [facility] Stop: 02/08/21 08:59 Last Admin: 01/15/21 08:13 Dose: 1 mg Documented by: Furosemide (Furosemide 20 Mg Tab) 20 mg PO BID17 [facility] Stop: 02/13/21 16:59 Last Admin: 01/15/21 08:13 Dose: 20 mg Documented by: Glucagon (Glucagon For Inj 1 Mg Vial) 1 mg IM UD PRN; Protocol PRN Reason: Hypoglycemia Protocol Stop: 02/07/21 10:14 Glucose (Glucose 40% Gel 15 Gm Tube) 15 - 30 gm PO UD PRN; Protocol PRN Reason: Hypoglycemia Protocol Stop: 02/07/21 10:14 Glucose (Glucose 10 Tabs/Tube) 4 - 8 tabs PO UD PRN; Protocol PRN Reason: Hypoglycemia Protocol Stop: 02/07/21 10:14 Heparin Sodium (Beef Lung) (Heparin 10 Unit/Ml 5 Ml Flush) 5 ml FLUSH PRN PRN PRN Reason: Flush Stop: 02/06/21 22:47 Hydromorphone HCl (Hydromorphone Inj 0.5 Mg/0.5 Ml Syr) 0.25 mg IV Q3H PRN PRN Reason: Pain Stop: 01/24/21 13:52 Last Admin: 01/15/21 08:19 Dose: 0.25 mg Documented by: Insulin Aspart (Insulin Aspart 100 Units/Ml 3 Ml Pen) 0 units SC ACHS [facility] Stop: 02/12/21 16:29 Last Admin: 01/15/21 12:37 Dose: 1 units Documented by: Midodrine (Midodrine Hcl 2.5 Mg Tab) 2.5 mg PO TID@0800,1200,1700 [facility] Stop: 02/06/21 16:59 Last Admin: 01/15/21 12:36 Dose: 2.5 mg Documented by: Miscellaneous (Carbohydrates For Hypoglycemia ) 15 - 30 gm PO UD PRN PRN Reason: Hypoglycemia Treatment Stop: 02/07/21 10:14 Pantoprazole Sodium (Pantoprazole 40 Mg Tab) 40 mg PO BID [facility] Stop: 02/12/21 08:59 Last Admin: 01/15/21 08:13 Dose: 40 mg Documented by: Spironolactone (Spironolactone 100 Mg Tab) 100 mg PO QAM [facility] Stop: 02/09/21 09:59 Last Admin: 01/15/21 08:13 Dose: 100 mg Documented by: Tamsulosin HCl (Tamsulosin Hcl 0.4 Mg Cap) 0.4 mg PO HS [facility] Stop: 02/12/21 20:59 Last Admin: 01/14/21 19:31 Dose: 0.4 mg Documented by: Umeclidinium [place] (Umeclidinium [place] 62.5mcg/Blister 7 Puffs/Inhaler) 1 puffs INH QAM [facility] Stop: 02/08/21 08:59 Last Admin: 01/15/21 08:14 Dose: 1 puffs Documented by: PG Care Time/CCT Total # of Minutes Spent Total Time Spent with Patient: Total time spent is greater than 50% in coordination of care (as documented) at patient's floor/unit and/or counseling patient: Coding Level of Care Code 46602 Subseq Hosp Care Lvl 2 Diagnoses Acute gastrointestinal bleeding K92.2 Acute kidney failure N17.9 Ileus K56.7 Hypotension due to blood loss I95.89 Esophageal varices I85.00 Liver cirrhosis K74.60; R18.8 Ascites presence: with ascites Hepatic cirrhosis type: unspecified hepatic cirrhosis Hepatitis C B19.20 BPH (benign prostatic hyperplasia) N40.0 Diabetes E13.69 Diabetes mellitus complication status: with other specified complication Diabetes mellitus half-way insulin use: unspecified half-way insulin use status Diabetes mellitus type: other specified (including JC) Aortic aneurysm I71.9 Peripheral neuropathy G62.9 Malignant neoplasm of prostate C61 CAD (coronary artery disease) I25.10 Abdominal ascites R18.8 Ascites type: other type COPD (chronic obstructive pulmonary disease) J44.9 Metabolic acidosis E87.2 DVT prophylaxis Z29.9 (1) Abdominal ascites Ascites type: other type Qualified Code(s): R18.8 - Other ascites (2) Diabetes Diabetes mellitus complication status: with other specified complication 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
[2021-01-15] MEDS: traMADol HCL 50 MG TABLET PO PRN ×2 (16:14→20:27)
--- NOTE | 2021-01-15 16:24 | Progress Notes ---
DATE: 01/15/2021 SUBJECTIVE: The patient reports no rectal bleeding. He is having small bowel movements and passing less gas. He has been advanced to a solid diet and his abdomen has become a little bit more distended. His kidney function remains relatively stable. His hemoglobin is stable at 8.1. His urine output is +705 mL out rather than in over the last 24 hours. OBJECTIVE: On exam, his abdomen is distended and dull to percussion indicating that this is most likely recurrent ascites. IMPRESSION AND PLAN: The patient's ascites appears to be reaccumulating. It is a plan that he may be discharged tomorrow with home nursing followup and kidney followup. I think it may be prudent to remove some additional fluid tomorrow with an albumin infusion afterwards as it is unlikely that he will go more than a week without requiring a paracentesis if it is not done before discharge.
[2021-01-15] MEDS: TAMSULOSIN HCL 0.4 MG CAP PO SCH (21:04)
[2021-01-15] MEDS ORDERED: HYDROmorphone INJ 0.5 MG/0.5 ML SYR IV ONE (22:07)
[2021-01-16 07:55] LABS: Hematocrit (blood only) 26.3 % (42-52); Hemoglobin 8.5 g/dL (14.0-18.0); Mean Corpuscular Hemoglobin 29.4 pg (25-34); Mean Corpuscular Hgb Conc 32.3 g/dL (32-36); RDW Coefficient of Variation 17.6 % (11.5-14.5); RDW Standard Deviation 58.6 fL (36.4-46.3); Red Blood Count 2.89 M/uL (4.7-6.1); White Blood Count 3.59 K/uL (4.8-10.8)
[2021-01-16 08:07] LABS: Mean Platelet Volume 10.6 fL (7.4-10.4); Platelet Count 89 K/uL (130-400)
[2021-01-16 08:23] LABS: BUN Creatinine Ratio 10.7 (10-20); Calcium 8.6 mg/dl (8.5-10.1); Creatinine Clr Calc Pharmacy 32.8 ml/min; Est GFR (African American) 32.1; Est GFR (Non-African American) 27.7; Potassium 3.4 mmol/L (3.5-5.1)
[2021-01-16] MEDS: FUROSEMIDE 20 MG TAB PO SCH ×2 (09:12→17:19)
[2021-01-16] MEDS: CYANOCOBALAMIN 500 MCG TABLET (VITAMIN B-12) PO SCH (09:12)
[2021-01-16] MEDS: FINASTERIDE 5 MG TAB PO SCH (09:12)
[2021-01-16] MEDS: SPIRONOLACTONE 100 MG TAB PO SCH (09:13)
[2021-01-16] MEDS: ATORVASTATIN 20 MG TAB PO SCH (09:13)
[2021-01-16] MEDS: FOLIC ACID 1 MG TAB PO SCH (09:13)
[2021-01-16] MEDS: PANTOprazole 40 MG TAB PO SCH ×2 (09:13→19:55)
[2021-01-16] MEDS: UMECLIDINIUM BROMIDE 62.5MCG/BLISTER 7 PUFFS/INHALER INH SCH (09:13)
[2021-01-16] MEDS: INSULIN ASPART 100 UNITS/ML 3 ML PEN SC SCH ×4 (09:19→21:30)
--- NOTE | 2021-01-16 09:49 | Nephrology Progress Note ---
Date of Service January 16, 2021 Assessment & Plan (1) Acute kidney injury: 70 y o m with Cirrhosis and portal hypertension admitted with GIB, Hb 6. Found to have Nonoliguric AMMY due to ? prerenal vs ATN with hypotension and 3rd spacing of fluid due to cirrhosis/portal hypertension. Baseline Cr has been 1.3 to 1.4. Peak cr 3.1,slightly improved and staying around 2.6 to 2.7, urinalysis was positive for low grade proteinuria and microscopic hematuria. noncontrast CT on 01/06/21 was negative for hydronephrosis. Initially on Octreotide, stopped as cr slightly improved. Received albumin, on Midodrine, BP improved. Had 4 L paracentesis on 01/11/21. Continued on Spironolactone 100 mg po daily and Furosemide 20 mg IV BID Renal function continues to improve, creatinine down to 2.3 Electrolyte acceptable, albumin improved. BP fair. -- continue Lasix 20 mg p.o. b.i.d. --monitor intake output, renal function daily for recovery. -- please schedule outpt Nephrology F/U with Dr. Zhou in next 3 to 4 weeks --monitor renal function with lab later this week and then weekly, result forwar ded to Dr. Zhou Will sign off. Please contact with any further Q. Thanks for the consult. Admission and Anticipated Discharge Date Admission Date: January 06, 2021 Page Fuentes was seen this morning, overall feels well. He has been tolerating oral diet, abdominal pain resolved. Decent UO. Renal function continues to improve slowly, creatinine down to 2.3, electrolyte acceptable. BP low, asymptomatic.. Review of Systems Review of Systems: All systems reviewed & are unremarkable except as noted in Subjective Physical Exam Constitutional: WD/WN, vitals as above no acute distress Respiratory: normal respiratory effort, lungs clear to auscultation Cardiovascular: RRR, no murmur, no edema Gastrointestinal (Abdomen): Inspection/Auscultation: normal bowel sounds Percussion/Palpation: abdomen soft and + ascites; abdomen nontender, no guarding and abdomen not rigid Results & Data ([facility]) Vital Signs (Past 12 Hours) Vital Signs Temp Pulse Resp BP BP Pulse Ox 01/16/21 07:12 36.6 C 78 16 94/59 L 90 01/15/21 23:15 36.4 C L 77 16 124/75 91 PG Care Time/CCT Total # of Minutes Spent Total Time Spent with Patient: Total time spent is greater than 50% in coordination of care (as documented) at patient's floor/unit and/or counseling patient: Coding Level of Care Code 95530 Subseq Hosp Care Lvl 2 Diagnoses Acute kidney injury N17.9
[2021-01-16] MEDS: ALBUMIN 25% 12.5 GM/50 ML VIAL IV SCH ×6 (13:35→19:54)
--- NOTE | 2021-01-16 14:09 | Progress Notes ---
DATE: 01/16/2021 SUBJECTIVE: The patient has relatively stabilized. His renal function; his creatinine today is 2.3. He continues to make urine and has a surplus output today of over 500 mL. His abdomen is more distended today and somewhat tender, especially in the right side. It is dull to percussion indicating its fluid and not gas. He is eating a solid diet and the workforce development assistant have signed off his case and will be following him as an outpatient. He continues on Lasix and spironolactone. PHYSICAL EXAMINATION: Abdomen is distended and dull to percussion. Slightly tender in the right side. IMPRESSION: The patient has recurrent ascites and is uncomfortable. I plan on scheduling him for a 5-6 liter paracentesis today followed by 50 grams of 25% albumin IV. Hopefully, he will be able to go home soon and be followed as an outpatient.
[2021-01-16] MEDS: traMADol HCL 50 MG TABLET PO PRN ×2 (14:33→19:54)
[2021-01-16] MEDS ORDERED: HYDROmorphone INJ 0.5 MG/0.5 ML SYR IV STA ×2 (15:06→21:18)
--- NOTE | 2021-01-16 15:58 | Hospitalist Progress Note ---
Date of Service January 16, 2021 Assessment & Plan (1) Acute gastrointestinal bleeding: Acute blood loss anemia with hemoglobin 6.0 from 11.4 in October. Recent colonoscopy performed 10 days prior to admission with one 5 mm polyp removed in distal ascending colon multiple recently bleeding colonic angiectasias treated with argon plasma coagulation EGD also at that time showed grade 2 esophageal varices and erythematous mucosa in the stomach -Colonoscopy with Dr. Estrada performed this admission on 01/06: Ulcerations noted from APC 10 days prior. Visible vessel on one ulcer started to do APC and pulsatile bleeding noted. Epinephrine injected and then 2 clips placed with control of bleeding. This was the suspected source of bleeding and repeat EGD not necessary he is status post 4 units of PRBC and 1 unit of FFP upon admission Hb dropped again to 7.0 on 01/07 he was transfused another unit of PRBCs Hemoglobin then improved and stable at 7.9 Continues to have brown stool since 01/08, however hemoglobin dropped to 7.0 again on 01/10 Received another unit of PRBCs on 01/10 Hgb improved on 01/11 to 8.3 and remains stable for 2 days, no GI bleeding in many days Ileus now resolved-advance diet to regular Hb 8.5 today Appreciate GI consultation Continue to monitor CBC in the morning -continue Protonix 40mg po bid (2) Acute kidney failure: Secondary to hypovolemia and low hemoglobin/hemorrhagic shock. 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 Abd pain is significantly improved, is passing a lot of flatus, having BMs, no N/V, irving full liquids -adv diet to regular KUB no obstruction moved bowels twice today (4) Hypotension due to blood loss: Hypotension due to acute blood loss anemia as well as due to large volume paracentesis on 01/07 Fluid resuscitation in the emergency room with 2L NSS bolus while awaiting packed RBCs. now s/p 6 units of PRBCs and 3 days of IV albumin Was on Levophed overnight on 01/07 and weaned off on 01/08 Blood pressures also improved on midodrine 2.5 mg p.o. 3 times daily hypertensive 01/15, stopped midodrine, pressures stable Continue holding home nadolol Was downgraded out of the ICU on 01/08 Now status post 4 L paracentesis on 01/07, again 4L removed on 01/09 and 5L on 01/11-no further hypotension plan for paracentesis again today - IV albumin now discontinued -continue Lasix; continue spironolactone 100 mg once daily (5) Esophageal varices: Grade 2 esophageal varices noted on recent EGD 10 days prior to admission no hematemesis source of bleeding noted on colonoscopy so bleeding varices unlikely Home nadolol is currently on hold (6) Liver cirrhosis: Hepatitis C, post-treatment (unknown details regarding this) History of hepatic encephalopathy however current mentation normal even with low blood pressure and acute blood loss anemia. With elevated INR at 1.6, platelets low but improved at 74, sodium normal at 145, total bilirubin elevated at 1.8 with ascites, Dr. Haque performed US guided paracentesis on 01/07, 4 liters drained, fluid sent for analysis-no evidence of SBP on cell count, culture negative -With tense ascites and abdominal pain -has had serial paracentesis with 4 L removed on 01/07, 01/09, and 5L removed on 01/11 Overall much improved for a few days but now with tense ascites again today repeat paracentesis, albumin given -Ammonia level normal at 26 -Eventually restart nadolol if BP can tolerate -continue Lasix, and Aldactone -needs continued outpt GI follow up as outpt likely needs scheduled paracentesis (7) Hepatitis C: As above (8) BPH (benign prostatic hyperplasia): continue Flomax -Continue finasteride Horn catheter in place-we will continue to reassess daily if can be removed- continue for now given ongoing renal failure (9) Diabetes: Historical diagnosis. HbA1c 4.8 in August 2020. Glucose 152 on arrival likely acutely raised with stress. Monitor BSG ACHS with insulin sliding scale would recommend stopping Metformin as an outpatient (10) Aortic aneurysm: Notable history of this (11) Peripheral neuropathy: Chronic pain possibly from lumbar degenerative disease versus diabetes. Restart gabapentin once renal failure improves although doesn't seem to be having issues off of it for now (12) Malignant neoplasm of prostate: Status post radiation Follows with [facility]. Outside note reports having Lupron injections. (13) CAD (coronary artery disease): Follows with cardiology in [place]. Previous stents with last 9 drug- eluting stent placed to mid LAD in 2018. Unable to take antiplatelets due to GI bleeds. Restart beta-klaudia when blood pressure /GI bleed stable. Continue atorvastatin (14) Abdominal ascites: As above, status post paracentesis x3 for total of 13L removed this week continue Lasix and Aldactone as above paracentesis again today (15) COPD (chronic obstructive pulmonary disease): Continue maintenance inhaler No acute issues (16) Metabolic acidosis: As above, serum bicarbonate now normalized have since discontinued sodium bicarbonate drip Follow BMP in the morning (17) DVT prophylaxis: SCDs Chemical anticoagulation contraindicated due to GI bleeding Disposition-continued stay on medical floor--> Overall improving. try to discharge to home tomorrow but if he cannot go home will need to transfer to [facility] Conditional code-no CPR or shocks but desires intubation Admission and Anticipated Discharge Date Admission Date: January 06, 2021 Subjective patient with more pain and abdominal distension today, tense ascites will get paracentesis to relieve the pain reviewed labs, Hb stable at 8.5, Cr stable at 2.3 although not improving K is 3.4 he is eating, moved his bowels twice today, good bowel movements according to the patient he is making urine with the Lasix discussed with [facility], they cannot perform a paracentesis at [facility] will see how he responds to the paracentesis, potential to go home tomorrow? will need scheduled paracentesis as outpatient Review of Systems Review of Systems: All systems reviewed & are unremarkable except as noted in Subjective Physical Exam Constitutional: well developed, well nourished and comfortable; no acute distress Neck: trachea midline, no thyromegaly Respiratory: normal respiratory effort, lungs clear to auscultation Cardiovascular: Rate/Rhythm: regular rate and regular rhythm Heart Sounds: normal S1 and normal S2; no murmur Vessels: no JVD Extremities: normal capillary refill and + edema (1+ pitting bilaterally) Gastrointestinal (Abdomen): Inspection/Auscultation: + abdomen distended and normal bowel sounds Percussion/Palpation: + abdomen tender, + ascites and + abdomen firm Musculoskeletal: no cyanosis or clubbing, extremities motor strength 5/5 Skin: no rashes, warm and dry Neurologic: patellar DTR's 2+ bilat, sensation intact and PERRL, EOMI, accommodation nl, no face palsy, no dysarthria Psychiatric: A+Ox3, euthymic affect Lymphatic: no cervical or axillary lymphadenopathy Results & Data Results & Data ([facility]) Vital Signs (Past 12 Hours) Vital Signs Temp Pulse Resp BP Pulse Ox 01/16/21 14:39 36.5 C 73 18 117/72 94 01/16/21 13:38 36.6 C 98 H 18 119/78 96 01/16/21 07:12 36.6 C 78 16 94/59 L 90 Laboratory Results Laboratory Results - last 24 hr 01/15/21 01/15/21 01/16/21 17:17 20:04 07:35 WBC 3.59 L RBC 2.89 L Hgb 8.5 L Hct 26.3 L MCV 91.0 MCH 29.4 MCHC 32.3 RDW Std Deviation 58.6 H RDW Coeff of Anderson 17.6 H Plt Count 89 L MPV 10.6 H Sodium Potassium Chloride Carbon Dioxide Anion Gap BUN Creatinine Est Cr Clr Drug Dosing Est GFR ( Amer) Est GFR (Non-Af Amer) BUN/Creatinine Ratio Glucose POC Glucose 122 H 116 H Calcium 01/16/21 01/16/21 01/16/21 07:35 08:00 11:59 WBC RBC Hgb Hct MCV MCH MCHC RDW Std Deviation RDW Coeff of Anderson Plt Count MPV Sodium 143 Potassium 3.4 L Chloride 110 H Carbon Dioxide 24 Anion Gap 9.0 BUN 25 H Creatinine 2.30 H Est Cr Clr Drug Dosing 32.8 Est GFR ( Amer) 32.1 Est GFR (Non-Af Amer) 27.7 BUN/Creatinine Ratio 10.7 Glucose 128 H POC Glucose 124 H 143 H Calcium 8.6 Medications Administered Current Inpatient Medications Artificial Tears (Artificial Tears) 1 drops OP PRN PRN PRN Reason: EYE IRRITATION Stop: 02/13/21 15:58 Atorvastatin Calcium (Atorvastatin 20 Mg Tab) 20 mg PO QAM [facility] Stop: 02/08/21 08:59 Last Admin: 01/16/21 09:13 Dose: 20 mg Documented by: Cyanocobalamin (Cyanocobalamin 500 Mcg Tablet (Vitamin B-12)) 500 mcg PO QAM [facility] Stop: 02/08/21 08:59 Last Admin: 01/16/21 09:12 Dose: 500 mcg Documented by: Dextrose (Dextrose 50% 50 Ml Syringe) 25 - 50 ml IV UD PRN; Protocol PRN Reason: Hypoglycemia Protocol Stop: 02/07/21 10:14 [facility]asteride ([facility]asteride 5 Mg Tab) [facility] [place]: 02/08/21 08:59 Last Admin: 01/16/21 09:12 Dose: 5 mg Documented by: Folic Acid (Folic Acid 1 Mg Tab) 1 mg PO QAM [facility] Stop: 02/08/21 08:59 Last Admin: 01/16/21 09:13 Dose: 1 mg Documented by: Furosemide (Furosemide 20 Mg Tab) 20 mg PO [id number] [facility] Stop: 02/13/21 16:59 Last Admin: 01/16/21 09:12 Dose: 20 mg Documented by: Glucagon (Glucagon For Inj 1 Mg Vial) 1 mg IM UD PRN; Protocol PRN Reason: Hypoglycemia Protocol Stop: 02/07/21 10:14 Glucose (Glucose 40% Gel 15 Gm Tube) 15 - 30 gm PO UD PRN; Protocol PRN Reason: Hypoglycemia Protocol Stop: 02/07/21 10:14 Glucose (Glucose 10 Tabs/Tube) 4 - 8 tabs PO UD PRN; Protocol PRN Reason: Hypoglycemia Protocol Stop: 02/07/21 10:14 Heparin Sodium (Beef Lung) (Heparin 10 Unit/Ml 5 Ml Flush) 5 ml FLUSH PRN PRN PRN Reason: Flush Stop: 02/06/21 22:47 Albumin Human (Albumin 25%) 12.5 gm in 50 mls @ 50 mls/hr IV TODAY@1200,1300 [facility] Stop: 01/16/21 23:59 Last Admin: 01/16/21 14:30 Dose: 50 mls/hr Documented by: Albumin Human (Albumin 25%) 12.5 gm in 50 mls @ 50 mls/hr IV Q1H [facility] Stop: 01/16/21 17:59 Insulin Aspart (Insulin Aspart 100 Units/Ml 3 Ml Pen) 0 units SC ACHS [facility] Stop: 02/12/21 16:29 Last Admin: 01/16/21 12:58 Dose: 4 units Documented by: Miscellaneous (Carbohydrates For Hypoglycemia ) 15 - 30 gm PO UD PRN PRN Reason: Hypoglycemia Treatment Stop: 02/07/21 10:14 Pantoprazole Sodium (Pantoprazole 40 Mg Tab) 40 mg PO BID [facility] Stop: 02/12/21 08:59 Last Admin: 01/16/21 09:13 Dose: 40 mg Documented by: Spironolactone (Spironolactone 100 Mg Tab) 100 mg PO QAM [facility] Stop: 02/09/21 09:59 Last Admin: 01/16/21 09:13 Dose: 100 mg Documented by: Tamsulosin HCl (Tamsulosin Hcl 0.4 Mg Cap) 0.4 mg PO HS [facility] Stop: 02/12/21 20:59 Last Admin: 01/15/21 21:04 Dose: 0.4 mg Documented by: Tramadol HCl (Tramadol Hcl 50 Mg Tablet) 50 mg PO Q4H PRN PRN Reason: Pain Stop: 02/14/21 15:59 Last Admin: 01/16/21 14:33 Dose: 50 mg Documented by: Umeclidinium Gaston (Umeclidinium Gaston 62.5mcg/Blister 7 Puffs/Inhaler) 1 puffs INH QAM [facility] Stop: 02/08/21 08:59 Last Admin: 01/16/21 09:13 Dose: 1 puffs Documented by: PG Care Time/CCT Total # of Minutes Spent Total Time Spent with Patient: Total time spent is greater than 50% in coordination of care (as documented) at patient's floor/unit and/or counseling patient: Coding Level of Care Code 15801 Subseq Hosp Care Lvl 3 Diagnoses Acute gastrointestinal bleeding K92.2 Acute kidney failure N17.9 Ileus K56.7 Hypotension due to blood loss I95.89 Esophageal varices I85.00 Liver cirrhosis K74.60; R18.8 Ascites presence: with ascites Hepatic cirrhosis type: unspecified hepatic cirrhosis Hepatitis C B19.20 BPH (benign prostatic hyperplasia) N40.0 Diabetes E13.69 Diabetes mellitus complication status: with other specified complication 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: unspecified prison insulin use status Diabetes mellitus type: other specified (including JC) Aortic aneurysm I71.9 Peripheral neuropathy G62.9 Malignant neoplasm of prostate C61 CAD (coronary artery disease) I25.10 Abdominal ascites R18.8 Ascites type: other type COPD (chronic obstructive pulmonary disease) J44.9 Metabolic acidosis E87.2 DVT prophylaxis Z29.9 (1) Abdominal ascites Ascites type: other type Qualified Code(s): R18.8 - Other ascites (2) Diabetes Diabetes mellitus complication status: with other specified complication Diabetes mellitus prison insulin use: unspecified ad terminal 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
--- NOTE | 2021-01-16 16:57 | Ultrasound Report ---
PARACENTESIS UNDER ULTRASOUND GUIDANCE CLINICAL HISTORY: Cirrhosis and ascites COMPARISON STUDY: Abdominal CT dated 01/06/2021. PROCEDURE: The risks, benefits, and alternatives to the procedure were discussed with the patient who voiced understanding. Written informed consent was obtained. Following real-time ultrasound localiza tion of a suitable pocket of fluid in the left lower quadrant, the abdomen was prepped and draped in the usual sterile fashion. The skin and soft tissues were anesthetized with 1% lidocaine. The sheathe d paracentesis needle was inserted and approximately 5 liters of straw-colored ascitic fluid was vicki leeann by vacuum suction. The procedure was well tolerated and without immediate complication. The patie nt left the department in satisfactory condition. IMPRESSION: Successful ultrasound-guided paracentesis with removal of approximately 5 liters of ascit ic fluid. ACT 112: Negative or not required by law. Electronically signed by: Titi Jara M.D. 01/16/2021 4:56 PM
[2021-01-16] MEDS: TAMSULOSIN HCL 0.4 MG CAP PO SCH (19:55)
[2021-01-17 06:55] LABS: Hematocrit (blood only) 24.3 % (42-52); Hemoglobin 7.9 g/dL (14.0-18.0); Mean Corpuscular Hemoglobin 29.6 pg (25-34); Mean Corpuscular Hgb Conc 32.5 g/dL (32-36); RDW Coefficient of Variation 17.3 % (11.5-14.5); Red Blood Count 2.67 M/uL (4.7-6.1); White Blood Count 2.76 K/uL (4.8-10.8)
[2021-01-17 07:17] LABS: Mean Platelet Volume 10.3 fL (7.4-10.4); Platelet Count 76 K/uL (130-400)
[2021-01-17 07:19] LABS: Albumin Level 3.3 gm/dl (3.4-5.0); BUN Creatinine Ratio 10.5 (10-20); Creatinine Clr Calc Pharmacy 35.9 ml/min; Est GFR (African American) 35.9; Potassium 3.6 mmol/L (3.5-5.1)
[2021-01-17 07:22] LABS: Albumin Globulin Ratio 1.3 (0.9-2); Bilirubin,Total 1.7 mg/dl (0.2-1); Globulin 2.6 gm/dl (2.5-4.0); Total Protein 5.9 gm/dl (6.4-8.2)
[2021-01-17] MEDS: INSULIN ASPART 100 UNITS/ML 3 ML PEN SC SCH ×2 (08:00→12:18)
[2021-01-17] MEDS: FOLIC ACID 1 MG TAB PO SCH (08:52)
[2021-01-17] MEDS: CYANOCOBALAMIN 500 MCG TABLET (VITAMIN B-12) PO SCH (08:52)
[2021-01-17] MEDS: PANTOprazole 40 MG TAB PO SCH (08:52)
[2021-01-17] MEDS: FINASTERIDE 5 MG TAB PO SCH (08:52)
[2021-01-17] MEDS: ATORVASTATIN 20 MG TAB PO SCH (08:52)
[2021-01-17] MEDS: FUROSEMIDE 20 MG TAB PO SCH (08:52)
[2021-01-17] MEDS: SPIRONOLACTONE 100 MG TAB PO SCH (08:52)
[2021-01-17] MEDS: UMECLIDINIUM BROMIDE 62.5MCG/BLISTER 7 PUFFS/INHALER INH SCH (08:53)
--- NOTE | 2021-01-17 14:26 | Discharge Summary ---
Date of Service January 17, 2021 Admission HPI Per Admitting Provider Alfredo Willis is a 70-year-old male with esophageal varices, colonic ectasia and liver cirrhosis who presents to the ER via EMS with lower GI bleed. Unfortunately his history is somewhat fragmented due to poor recollection and multiple hospitalizations in different institutions with [facility]. The patient reports lower GI bleeding for approximately 5 months with bright red blood in stool however this significantly increased after his colonoscopy 10 days ago. EGD was also performed at this time which showed grade 2 esophageal varices with diffuse moderately erythematous mucosa without bleeding found in the entire stomach. Colonoscopy was notable for a 5 mm sessile polyp in the distal ascending colon which was resected and hemostatic clip placed. Also noted to have multiple medium sized localized angiectasia's with stigmata of recent bleeding in the distal rectum which was coagulated for hemostasis using an argon laser. Some prior notes a history of Crohn's disease however this was not seen on recent colonoscopy. This morning he woke up with a large puddle of blood on his bed sheets with blood running down his legs. Initial blood pressure for EMS 70/30 with increased respiratory rates in the 30s. He denies taking any antiplatelets or anticoagulation (although notably aspirin and Plavix as mentioned on recent [facility] note as an outside medication he takes). He does report a large upper GI bleed from varices in the past requiring 4 units of blood transfusion. Of note the patient took none of his usual medications this morning. In the ER hemoglobin noted to be 6.0 from last known 11.42 months ago. Initial blood pressure in the emergency room was hypotensive with 169/86. 4 units of packed red blood cells ordered however these have not been started when I saw the patient. Patient's sister (next of kin) was informed of admission and severity of life- threatening illness. Principal Diagnosis Acute GI bleed with acute blood loss anemia Discharge Exam Constitutional well developed, well nourished and comfortable; no acute distress Neck trachea midline, no thyromegaly Respiratory normal respiratory effort, lungs clear to auscultation Cardiovascular Rate/Rhythm: regular rate and regular rhythm Heart Sounds: normal S1 and normal S2; no murmur Vessels: no JVD Extremities: normal capillary refill and + edema (1+ pitting bilaterally) Gastrointestinal (Abdomen) Inspection/Auscultation: + abdomen distended and normal bowel sounds Percussion/Palpation: + abdomen tender, + ascites and + abdomen firm Musculoskeletal no cyanosis or clubbing, extremities motor strength 5/5 Skin no rashes, warm and dry Neurologic patellar DTR's 2+ bilat, sensation intact and PERRL, EOMI, accommodation nl, no face palsy, no dysarthria Psychiatric A+Ox3, euthymic affect Lymphatic no cervical or axillary lymphadenopathy Discharge Data Allergies Allergy/AdvReac Type Severity Reaction Status Date / Time fentanyl AdvReac Severe WENT Verified 01/15/21 16:05 CRAZY, HALLUCINATIONS, BIZARRE BEHAVIOR Consultations 01/06/21 11:07 Consult Gastroenterology Stat 01/06/21 11:11 ED Decision to Admit Stat 01/06/21 11:18 Consult C S S Representative Stat 01/07/21 13:20 Consult Nephrology Routine Procedures Performed Operation Date: 01/06/21 12:30 Actual Procedures p Colonoscopy,control of bleeding - Kolby Estrada Ordered Studies 01/06/21 12:07 CT abd pelvis wo con Stat 01/07/21 09:26 US point of care ultrasound Urgent 01/09/21 09:11 US paracentesis abd w/image Routine 01/11/21 09:00 US paracentesis abd w/image Routine 01/16/21 15:30 US paracentesis abd w/image Routine Hospital Course (1) Acute gastrointestinal bleeding: Acute blood loss anemia with hemoglobin 6.0 from 11.4 in October. Recent colonoscopy performed 10 days prior to admission with one 5 mm polyp removed in distal ascending colon multiple recently bleeding colonic angiect asias treated with argon plasma coagulation EGD also at that time showed grade 2 esophageal varices and erythematous mucosa in the stomach -Colonoscopy with Dr. Estrada performed this admission on 01/06: Ulcerations noted from APC 10 days prior. Visible vessel on one ulcer started to do APC and pulsatile bleeding noted. Epinephrine injected and then 2 clips placed with control of bleeding. This was the suspected source of bleeding and repeat EGD not necessary he is status post 4 units of PRBC and 1 unit of FFP upon admission Hb dropped again to 7.0 on 01/07 he was transfused another unit of PRBCs Hemoglobin then improved and stable at 7.9 Continues to have brown stool since 01/08, however hemoglobin dropped to 7.0 again on 01/10 Received another unit of PRBCs on 2/24 Hgb improved on 01/11 to 8.3 and remains stable for 2 days, no GI bleeding in many days Ileus now resolved-advance diet to regular Hb is 8 today -continue Protonix 40mg po bid check CBC on Friday01/22/21 (2) Acute kidney failure: Secondary to hypovolemia and low hemoglobin/hemorrhagic shock. 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 Chen (3) Ileus: Finally much improved after reduction in ascites. Abd pain is significantly improved, is passing a lot of flatus, having BMs, no N/V, irving full liquids -adv diet to regular KUB no obstruction moving bowels regularly and eating well, no vomiting (4) Hypotension due to blood loss: Hypotension due to acute blood loss anemia as well as due to large volume paracentesis on 01/07 Fluid resuscitation in the emergency room with 2L NSS bolus while awaiting packed RBCs. now s/p 6 units of PRBCs and 3 days of IV albumin Was on Levophed overnight on 01/07 and weaned off on 01/08 Blood pressures also improved on midodrine 2.5 mg p.o. 3 times daily hypertensive 01/15, stopped midodrine, pressures stable Continue holding home nadolol Was downgraded out of the ICU on 01/08 (5) Esophageal varices: Grade 2 esophageal varices noted on recent EGD 10 days prior to admission no hematemesis source of bleeding noted on colonoscopy so bleeding varices unlikely Home nadolol is currently on hold and will be held on discharge due to low BP (6) Liver cirrhosis: Hepatitis C, post-treatment (unknown details regarding this) History of hepatic encephalopathy however current mentation normal even with low blood pressure and acute blood loss anemia. With elevated INR at 1.6, platelets low but improved at 74, sodium normal at 145, total bilirubin elevated at 1.8 with ascites, Dr. Haque performed US guided paracentesis on 01/07, 4 liters drained, fluid sent for analysis-no evidence of SBP on cell count, culture negative -With tense ascites and abdominal pain -has had serial paracentesis with 4 L removed on 01/07, 01/09, and 5L removed on 01/11 Overall much improved for a few days but now with tense ascites again on 01/16 repeat paracentesis for 5L on 01/16, 50gm albumin given -Ammonia level normal at 26 -Eventually restart nadolol if BP can tolerate -continue Lasix, and Aldactone -needs continued outpt GI follow up as outpt likely needs scheduled paracentesis, likely once a week he will be scheduled for US paracentesis with Albumin on 01/22 and will get lab work that day (7) Hepatitis C: As above (8) BPH (benign prostatic hyperplasia): continue Flomax -Continue finasteride (9) Diabetes: Historical diagnosis. HbA1c 4.8 in August 2020. Glucose 152 on arrival likely acutely raised with stress. Monitor BSG ACHS with insulin sliding scale would recommend stopping Metformin as an outpatient (10) Aortic aneurysm: Notable history of this (11) Peripheral neuropathy: Chronic pain possibly from lumbar degenerative disease versus diabetes. Restart gabapentin once renal failure improves although doesn't seem to be having issues off of it for now (12) Malignant neoplasm of prostate: Status post radiation Follows with [place] [facility]. Outside note reports having Lupron injections. (13) CAD (coronary artery disease): Follows with cardiology in [place]. Previous stents with last 9 drug- eluting stent placed to mid LAD in 2018. Unable to take antiplatelets due to GI bleeds. Continue atorvastatin (14) Abdominal ascites: As above, status post paracentesis x4 this admission for total of 18L removed this week continue Lasix and Aldactone as above paracentesis scheduled for 01/22, should have Albumin 50gm IV afterwards (15) COPD (chronic obstructive pulmonary disease): Continue maintenance inhaler No acute issues (16) Metabolic acidosis: As above, serum bicarbonate now normalized have since discontinued sodium bicarbonate drip Follow BMP in the morning (17) DVT prophylaxis: SCDs Chemical anticoagulation contraindicated due to GI bleeding Disposition- discharge to home with home nursing, [facility], nephrology Total Time Total Time Spent Total Time Spent (In Minutes): 40 Total Time Includes: Examination of the Patient, Discharge Planning, Medication Reconciliation and Communication With Other Providers Discharge Plan Discharge Items Patient Disposition: Home - Home Health Services Reason For Visit: ACUTE GI BLEED Discharge Diagnosis: GI bleed acute blood loss anemia cirrhosis with ascites acute kidney injury Condition on Discharge: Good Goals: check labs on Friday01/22/21 get paracentesis on Friday01/22/21 Activity: Resume your previous activity Non-emergency contact: Primary Care Provider Call non-emergency contact if: you have any medication questions and your symptoms worsen Follow-up/Referrals: Brooke Chen MD [Physician] - (2 weeks) Diego Hernandez [Physician] - (2 weeks) Osmany Molina MD [Primary Care Provider] - 01/30/21 12:45 pm (two weeks) Diet: Low Sodium (2gm) Fluids: 1500ml (6 cups) Ambulatory Orders: Basic Metabolic Panel (Routine) Timeframe: 20210122 Location: Determined by Patient Ordered By: Deondre Conklin Complete Blood Count no Diff (Routine) Timeframe: 20210122 Location: Determined by Patient Ordered By: Deondre Conklin Add Attending Provider Instructions: Medications: several changes made - LASIX: increased to 20mg twice a day, take in the morning and then again at 4pm - SPIRONOLACTONE: 100mg daily, this is an additional diuretic to help limit fluid accumulation in your abdomen Please make sure you STOP taking Nadolol and Propranolol you need to follow a low sodium diet, less than 2gm a day you need to follow a fluid restriction of 1500mL a day will check labs on Monday 01/22 and will get a paracentesis at 10am here at the hospital you can bring the lab slips with you to the hospital and get the labs drawn the same day Pending Studies at Discharge: No Stand-Alone Forms: My [email or web address], Smoking Cessation Medications and DC Order Prescriptions: New spironolactone 100 mg Tablet 100 mg PO QAM 30 Days Qty: 30 RF: 3 furosemide 20 mg Tablet 20 mg PO BID 30 Days Qty: 60 RF: 3 Continued cyanocobalamin (vitamin B-12) [Vitamin B-12] 500 mcg Tablet 500 mcg PO QAM RF: 0 tamsulosin 0.4 mg Capsule 0.4 mg PO QAM RF: 0 ferrous sulfate 325 mg (65 mg iron) Tablet 325 mg PO QAM RF: 0 folic acid 1 mg Tablet 1 mg PO QAM RF: 0 finasteride [Proscar] 5 mg Tablet 5 mg PO QAM RF: 0 Spiriva Respimat 1.25 mcg/actuation Mist 2 puff INHALATION QAM RF: 0 docusate sodium [Colace] 100 mg capsule 100 mg PO BID Qty: 60 RF: 0 atorvastatin 40 mg Tablet 20 mg PO QAM RF: 0 budesonide-formoterol 160-4.5 mcg/actuation Hfa Aerosol Inhaler 2 puff INHALATION BID RF: 0 gabapentin 300 mg Capsule 600 mg PO TID RF: 0 magnesium oxide 420 mg Tablet 420 mg PO QAM RF: 0 meclizine 12.5 mg Tablet 12.5 mg PO TID PRN (Reason: Dizziness Or Vertigo) RF: 0 melatonin 3 mg Tablet 3 mg PO HS PRN (Reason: Insomnia) RF: 0 multivitamin with minerals [Multiple Vitamin-Minerals] Tablet 1 tab PO QAM RF: 0 Discontinued metformin 500 mg Tablet 500 mg PO BID RF: 0 nadolol 40 mg Tablet 40 mg PO QAM RF: 0 furosemide 20 mg Tablet 20 mg PO QAM RF: 0 propranolol 20 mg tablet 20 mg PO BID Qty: 60 RF: 0 Discharge Orders: Discharge Order (Routine); Ordered 01/17/21 Ordered By: Deondre Conklin Admission Data Admit Date/Time: 01/06/21 12:14 Attending Provider: Deondre Conklin Admit Provider: Chris Miller Primary Care Provider: Osmany Molina Other Providers: [facility] ; Kolby Estrada ; Chris Miller ; Abelardo Haque Helen M. ; Slick Zhou ; Florence Rosenberg ; Brooke Chen Kevin C. 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
== END 2021-01-17 16:41 | disposition home health service (06) ==
LOC: ED 10:03 → SUATTDRO 12:14 → 1E 12:14 → 2S 01-08 18:39 → 3N 01-13 15:21

== ENCOUNTER 2021-02-17 09:42 | Inpatient (IN) ==
[2021-02-17] MEDS ORDERED: OPTIRAY 320 125ml IV ONE (09:50)
--- NOTE | 2021-02-17 10:06 | CT Scan Report ---
CT head/brain wo con CLINICAL HISTORY: Stroke Like Symptoms COMPARISON STUDY: None TECHNIQUE: Axial CT of the brain is performed from the vertex to the skull base. IV contrast was not administered for this examination. A dose lowering technique was utilized adhering to the principles of ALARA. CT DOSE: FINDINGS: No intra or extra-axial mass lesions are visualized. There is no CT evidence of acute cortical infarc tion. There is no evidence of midline shift. There is no acute hemorrhage. No calvarial fractures ar e visualized. There are patchy white matter hypodensities likely on a small vessel basis. 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 There are atrophic changes present. There is no evidence of pathologic ventricular dilatation. There is no evidence of acute sinusitis IMPRESSION: 1. 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 No acute intracranial findings ACT 112: Negative or not required by law. Electronically signed by: Lb Ellis M.D. 02/17/2021 10:05 AM
--- NOTE | 2021-02-17 10:09 | CT Scan Report ---
CT angio neck with con CLINICAL HISTORY: Stroke Like Symptoms COMPARISON STUDY: No previous studies for comparison. TECHNIQUE: CT angiography was performed from the aortic arch to the skull base. MIP imaging was perfo rmed. The patient was scanned in a dynamic helical fashion during intravenous administration of 120 c c of Optiray 320. A dose lowering technique was utilized adhering to the principles of ALARA. CT DOSE: Technique: CT angiogram of the carotid and vertebral arteries was obtained using intravenous contrast and 3-D reconstruction. NASCET criteria was utilized. Findings: There is a 9 mm left parotid gland nodule possibly representing intraparotid lymph node. The right carotid revealed no evidence of aneurysm and no evidence of dissection. There is no evidenc e of hemodynamic significant stenosis. There are atheromatous changes present the level of the right carotid bulb The left carotid revealed no evidence of hemodynamic significant stenosis. There is no evidence of an eurysm. There is no evidence of dissection. There are atheromatous changes present at the level of th e left carotid bulb There is no evidence of hemodynamically significant vertebral stenosis. There is no evidence of verte bral dissection. IMPRESSION: No evidence of hemodynamically significant carotid or vertebral artery stenosis. No evidence of disse ction. ACT 112: Negative or not required by law. Electronically signed by: Lb Ellis M.D. 02/17/2021 10:08 AM
--- NOTE | 2021-02-17 10:12 | CT Scan Report ---
CT angio head w con CLINICAL HISTORY: Stroke Like Symptoms TECHNIQUE: CT angiography of the head was performed in a dynamic helical fashion during intravenous a dministration of 120 cc of Optiray 320. MIP imaging was performed. A dose lowering technique was util ized adhering to the principles of ALARA. CT DOSE: 1264.34 mGy.cm COMPARISON STUDY: No previous studies for comparison. FINDINGS: There are no lesion suspicious for aneurysm. There are no major intracranial branch occlusi ons. The dural venous sinuses appear patent. IMPRESSION: 1. No evidence of aneurysm. 2. No evidence of major intracranial branch occlusion or stenosis ACT 112: Negative or not required by law. Electronically signed by: Lb Ellis M.D. 02/17/2021 10:10 AM
--- NOTE | 2021-02-17 10:12 | Emergency Department Note ---
Impression & Plan Altered mental status, Hepatic encephalopathy, HTN (hypertension), Anemia, Leukopenia, Thrombocytopenia ED Provider Note NAME: EARNEST POOL AGE: 70 SEX: M : 1950 ARRIVES VIA: Ambulance INFORMANT: Patient ED PROVIDER(S): Rolan Garvin DO CHIEF COMPLAINT: Altered mental status HPI: Patient is a 70-year-old male who was found on the floor with a leftward gaze and confused. He has a past medical history of ascites, CAD, hyperlipidemia, aortic aneurysm, COPD, hepatitis C, colitis and a recent GI bleed. He was found by EMS and brought in. He was nonverbal with the exception of moaning and saying out to painful stimuli. He was moving all extremities per EMS. Nonfocal otherwise. History is limited secondary to mentation. ROS: Review of systems is limited secondary to mentation PAST MEDICAL HISTORY:See Below PAST SURGICAL HISTORY:See Below FAMILY HISTORY:See Below SOCIAL HISTORY:See Below HOME MEDICATIONS:See Below ALLERGIES:See Below VITALS:See Below PHYSICAL EXAMINATION: GENERAL: Lying in bed with a leftward gaze intermittently moaning EYE EXAM: PERRLA with a leftward gaze OROPHARYNX: Dry mucous membranes NECK: supple, no nuchal rigidity, no adenopathy, non-tender LUNGS: Diminished bilaterally. Normal chest wall mechanics HEART: no murmurs, S1 normal and S2 normal ABDOMEN: abdomen soft, non-tender, normo-active bowel sounds, no masses, no rebound or guarding. UPPER EXTREMITIES: upper extremities are grossly normal. LOWER EXTREMITIES: No pitting edema. NEURO EXAM: Awake with a leftward gaze eyes open and close moans to painful stimuli and says ouch. Does not otherwise talk. Withdraws upper and lower extremities to pain. MEDICAL DECISION MAKING: Patient is a 70-year-old male who presents the ER for altered mental status found on the floor. IV was established blood work was obtained. Labs showed leukopenia 4000 and anemia of nearly 9. Thrombocytopenia at 82. INR 1.3. BMP with a creatinine of 1.8 consistent with previous. Bilirubin slightly elevated at 1.6. No significant transaminitis. Troponin was negative. Covid was negative. Ammonia was 161. Patient was given fluids. CT head as well as CT angio of the head and neck were unremarkable. EKG was nondiagnostic. Patient was ordered rectal lactulose due to mentation cannot take oral at this time. Discussed with hospitalist for further evaluation Triage Nursing notes reviewed. Limited review of prior medical records performed Vital Signs: reviewed and remarkable for no significant abnormalities Differential diagnosis: Differential diagnoses includes but is not limited to toxic, metabolic, infectious, traumatic, cardiac, neurologic, hematologic, psychiatric and infl ammatory etiologies. ER treatment provided: See below Diagnostics interpreted by me: ECG: Sinus rhythm rate 95 Poor baseline No PVCs ST depressions in the V2 V3 QTC 472 Cardiac Monitoring: An order was placed for continuous cardiac monitoring. The monitor shows a rate of 101 with sinus rhythm. Laboratory studies: As stated above and show below. Imaging studies: CT angio of the head and neck show old infarcts but nothing acute Consultation(s): Discussed with Dr. Chris Miller for further evaluation Procedures: none Critical Care: None Past Med/Surg History Medical History (Updated 02/17/21 @ 15:55 by Rolan Garvin DO) Acute hypotension Acute kidney injury Acute lower GI bleeding Aortic aneurysm CAD (coronary artery disease) Follows with [facility] Chronic pain COPD (chronic obstructive pulmonary disease) Crohn's disease Crushing injury of chest 1970s Depression DM type 2 (diabetes mellitus, type 2) NIDDM Dyslipidemia Esophageal varices with banding x 3 (most recent approx 1 year ago) Hepatic encephalopathy history of 2019 History of CVA (cerebrovascular accident) approx 6 years ago; no residual History of hepatitis C History of nephrolithiasis History of prostate cancer dx 1 year ago; radiation History of subdural hematoma HTN (hypertension) Hypertension Malignant neoplasm of prostate Non-alcoholic cirrhosis Peripheral neuropathy Poor historian history obtained from staff member at [facility] and pt Tremor Surgical History (Updated 02/08/21 @ 13:21 by Saad Griffith MD) H/O inguinal hernia repair left side History of aortic aneurysm repair History of cardiac cath 2018 Replaced by [facility] History of cholecystectomy History of cystoscopy History of esophageal surgery as an infant History of facial surgery as a child following injury History of hernia repair multiple S/P coronary artery stent placement Family History Other Family history non-contributory Social History Smoking Status: Unknown if ever smoked Tobacco Type: Cigarettes Cigarettes Per Day: 1-2 per day; Second Hand Exposure: No; Hx Alcohol Use: No Hx Substance Use: No Preferred Language: Urdu Communication Ability: Effective Manager Clinical Informatics Required: No Beliefs That Will Affect Care: None Current Living Situation: Personal Care Facility Current Living Situation Comment: [facility] Feels Safe at Home: Yes Assistive Devices: None Allergies Allergies Allergy/AdvReac Type Severity Reaction Status Date / Time fentanyl AdvReac Severe WENT Verified 02/08/21 12:40 CRAZY, HALLUCINATIONS, BIZARRE BEHAVIOR Home Meds Home Medications Medication Instructions Recorded Confirmed Spiriva Respimat 2 puff INHALATION QAM 08/14/20 02/17/21 cyanocobalamin (vitamin B-12) 500 mcg PO QAM 08/14/20 02/17/21 [Vitamin B-12] ferrous sulfate 325 mg PO QAM 08/14/20 02/17/21 finasteride [Proscar] 5 mg PO QAM 08/14/20 02/17/21 folic acid 1 mg PO QAM 08/14/20 02/17/21 tamsulosin 0.4 mg PO QAM 08/14/20 02/17/21 atorvastatin 20 mg PO QAM 08/23/20 02/17/21 budesonide-formoterol 2 puff INHALATION BID 08/23/20 02/17/21 gabapentin 600 mg PO TID 08/23/20 02/17/21 magnesium oxide 420 mg PO QAM 08/23/20 02/17/21 meclizine 12.5 mg PO TID PRN 08/23/20 02/17/21 melatonin 3 mg PO HS PRN 08/23/20 02/17/21 multivitamin with minerals 1 tab PO QAM 08/23/20 02/17/21 [Multiple Vitamin-Minerals] Previous Rx's Medication Instructions Recorded docusate sodium [Colace] 100 mg PO BID #60 cap 11/14/20 furosemide 20 mg PO BID 30 Days #60 tab 01/17/21 spironolactone 100 mg PO QAM 30 Days #30 tab 01/17/21 Results & Data (ED) Vital Signs Vital Signs - 24 hr 02/17/21 09:40 02/17/21 10:00 02/17/21 10:06 Temperature 36.7 C Temperature Source Oral Pulse Rate 96 H 98 H Pulse Rate from SpO2 Sensor 98 H Respiratory Rate 23 Respiratory Effort / Characteristics Non-Labored Respiratory Depth Normal Blood Pressure 176/94 H 176/94 H Blood Pressure Mean 121 121 Blood Pressure Position Sitting Pulse Oximetry 99 99 Oxygen Delivery Method Room Air Sepsis Recent Fever Within 48 Hours No Sepsis New/Unexplained Change in Mental Status Yes Sepsis Action Taken by Nursing Physician Notified 02/17/21 10:10 02/17/21 10:20 02/17/21 10:30 Temperature Temperature Source Pulse Rate 96 H 87 Pulse Rate from SpO2 Sensor 94 H 94 H 87 Respiratory Rate Respiratory Effort / Characteristics Respiratory Depth Blood Pressure Blood Pressure Mean Blood Pressure Position Pulse Oximetry 99 100 98 Oxygen Delivery Method Sepsis Recent Fever Within 48 Hours Sepsis New/Unexplained Change in Mental Status Sepsis Action Taken by Nursing 02/17/21 10:31 02/17/21 10:40 02/17/21 10:53 Temperature Temperature Source Pulse Rate 88 81 105 H Pulse Rate from SpO2 Sensor 87 82 92 H Respiratory Rate 19 Respiratory Effort / Characteristics Respiratory Depth Blood Pressure 138/85 Blood Pressure Mean 102 Blood Pressure Position Pulse Oximetry 98 98 99 Oxygen Delivery Method Sepsis Recent Fever Within 48 Hours Sepsis New/Unexplained Change in Mental Status Sepsis Action Taken by Nursing 02/17/21 11:00 02/17/21 11:10 02/17/21 11:30 Temperature Temperature Source Pulse Rate 87 91 H 98 H Pulse Rate from SpO2 Sensor 87 91 H 89 Respiratory Rate 18 20 16 Respiratory Effort / Characteristics Respiratory Depth Blood Pressure Blood Pressure Mean Blood Pressure Position Pulse Oximetry 98 98 97 Oxygen Delivery Method Sepsis Recent Fever Within 48 Hours Sepsis New/Unexplained Change in Mental Status Sepsis Action Taken by Nursing Laboratory Data Result diagrams: 02/17/21 10:09 02/17/21 10:09 Lab Results 02/17/21 02/17/21 02/17/21 Range/Units 10:09 10:09 10:09 WBC 4.60 L (4.8-10.8) K/uL RBC 2.99 L (4.7-6.1) M/uL Hgb 8.9 L (14.0-18.0) g/dL Hct 26.6 L (42-52) % MCV 89.0 (80-100) fL MCH 29.8 (25-34) pg MCHC 33.5 (32-36) g/dL RDW Std Deviation 60.3 H (36.4-46.3) fL RDW Coeff of Anderson 18.5 H (11.5-14.5) % Plt Count 82 L (130-400) K/uL MPV 9.7 (7.4-10.4) fL Immature Gran % (Auto) 0.2 % Neut % (Auto) 66.6 % Lymph % (Auto) 11.3 % [place] % (Auto) 11.1 % Eos % (Auto) 10.4 % Baso % (Auto) 0.4 % Neut # (Auto) 3.06 (1.4-6.5) K/uL Lymph # (Auto) 0.52 L (1.2-3.4) K/uL [place] # (Auto) 0.51 (0.11-0.59) K/uL Eos # (Auto) 0.48 (0-0.5) K/uL Baso # (Auto) 0.02 (0-0.2) K/uL Immature Gran # (Auto) 0.01 (0.00-0.02) K/uL PT 12.6 H (9.0-12.0) Seconds INR 1.3 H (0.9-1.1) APTT 27.8 (21.0-31.0) Seconds PTT Ratio 1.1 Sodium 141 (136-145) mmol/L Potassium 3.9 (3.5-5.1) mmol/L Chloride 115 H (98-107) mmol/L Carbon Dioxide 20 L (21-32) mmol/L Anion Gap 7.0 (3-11) BUN 23 H (7-18) mg/dl Creatinine 1.84 H (0.6-1.4) mg/dl Est Cr Clr Drug Dosing Not Reportable Est GFR ( Amer) 42.1 Est GFR (Non-Af Amer) 36.3 BUN/Creatinine Ratio 12.7 (10-20) Glucose 157 H (70-99) mg/dl POC Glucose (70-99) mg/dl Calcium 8.8 (8.5-10.1) mg/dl Magnesium 1.9 (1.8-2.4) mg/dl Total Bilirubin 1.6 H (0.2-1) mg/dl AST 43 H (15-37) U/L ALT 25 (12-78) U/L Alkaline Phosphatase 141 H (45-117) U/L Ammonia (11-32) umol/L Troponin I < 0.015 (0-0.045) ng/ml Total Protein 7.0 (6.4-8.2) gm/dl Albumin 2.7 L (3.4-5.0) gm/dl Globulin 4.3 H (2.5-4.0) gm/dl Albumin/Globulin Ratio 0.6 L (0.9-2) COVID-19 Eval Order SARS-CoV-2 (PCR) (Negative) Influenza Type A (PCR) (Neg) Influenza Type B (PCR) (Neg) RSV (RT-PCR) (Neg) 02/17/21 02/17/21 02/17/21 Range/Units 10:10 10:58 11:05 WBC (4.8-10.8) K/uL RBC (4.7-6.1) M/uL Hgb (14.0-18.0) g/dL Hct (42-52) % MCV (80-100) fL MCH (25-34) pg MCHC (32-36) g/dL RDW Std Deviation (36.4-46.3) fL RDW Coeff of Anderson (11.5-14.5) % Plt Count (130-400) K/uL MPV (7.4-10.4) fL Immature Gran % (Auto) % Neut % (Auto) % Lymph % (Auto) % [place] % (Auto) % Eos % (Auto) % Baso % (Auto) % Neut # (Auto) (1.4-6.5) K/uL Lymph # (Auto) (1.2-3.4) K/uL [place] # (Auto) (0.11-0.59) K/uL Eos # (Auto) (0-0.5) K/uL Baso # (Auto) (0-0.2) K/uL Immature Gran # (Auto) (0.00-0.02) K/uL PT (9.0-12.0) Seconds INR (0.9-1.1) APTT (21.0-31.0) Seconds PTT Ratio Sodium (136-145) mmol/L Potassium (3.5-5.1) mmol/L Chloride (98-107) mmol/L Carbon Dioxide (21-32) mmol/L Anion Gap (3-11) BUN (7-18) mg/dl Creatinine (0.6-1.4) mg/dl Est Cr Clr Drug Dosing Est GFR ( Amer) Est GFR (Non-Af Amer) BUN/Creatinine Ratio (10-20) Glucose (70-99) mg/dl POC Glucose 158 H (70-99) mg/dl Calcium (8.5-10.1) mg/dl Magnesium (1.8-2.4) mg/dl Total Bilirubin (0.2-1) mg/dl AST (15-37) U/L ALT (12-78) U/L Alkaline Phosphatase (45-117) U/L Ammonia 161.9 H (11-32) umol/L Troponin I (0-0.045) ng/ml Total Protein (6.4-8.2) gm/dl Albumin (3.4-5.0) gm/dl Globulin (2.5-4.0) gm/dl Albumin/Globulin Ratio (0.9-2) COVID-19 Eval Order CovFluRsv at [facility] SARS-CoV-2 (PCR) (Negative) Influenza Type A (PCR) (Neg) Influenza Type B (PCR) (Neg) RSV (RT-PCR) (Neg) 02/17/21 Range/Units 11:05 WBC (4.8-10.8) K/uL RBC (4.7-6.1) M/uL Hgb (14.0-18.0) g/dL Hct (42-52) % MCV (80-100) fL MCH (25-34) pg MCHC (32-36) g/dL RDW Std Deviation (36.4-46.3) fL RDW Coeff of Anderson (11.5-14.5) % Plt Count (130-400) K/uL MPV (7.4-10.4) fL Immature Gran % (Auto) % Neut % (Auto) % Lymph % (Auto) % [place] % (Auto) % Eos % (Auto) % Baso % (Auto) % Neut # (Auto) (1.4-6.5) K/uL Lymph # (Auto) (1.2-3.4) K/uL [place] # (Auto) (0.11-0.59) K/uL Eos # (Auto) (0-0.5) K/uL Baso # (Auto) (0-0.2) K/uL Immature Gran # (Auto) (0.00-0.02) K/uL PT (9.0-12.0) Seconds INR (0.9-1.1) APTT (21.0-31.0) Seconds PTT Ratio Sodium (136-145) mmol/L Potassium (3.5-5.1) mmol/L Chloride (98-107) mmol/L Carbon Dioxide (21-32) mmol/L Anion Gap (3-11) BUN (7-18) mg/dl Creatinine (0.6-1.4) mg/dl Est Cr Clr Drug Dosing Est GFR ( Amer) Est GFR (Non-Af Amer) BUN/Creatinine Ratio (10-20) Glucose (70-99) mg/dl POC Glucose (70-99) mg/dl Calcium (8.5-10.1) mg/dl Magnesium (1.8-2.4) mg/dl Total Bilirubin (0.2-1) mg/dl AST (15-37) U/L ALT (12-78) U/L Alkaline Phosphatase (45-117) U/L Ammonia (11-32) umol/L Troponin I (0-0.045) ng/ml Total Protein (6.4-8.2) gm/dl Albumin (3.4-5.0) gm/dl Globulin (2.5-4.0) gm/dl Albumin/Globulin Ratio (0.9-2) COVID-19 Eval Order SARS-CoV-2 (PCR) NEGATIVE (Negative) Influenza Type A (PCR) Negative (Neg) Influenza Type B (PCR) Negative (Neg) RSV (RT-PCR) Negative (Neg) Administered Medications Lactulose 200 gm/ Sterile Water 700 ml/ BARCODE IDENTIFIER 1 ea 0 gm GA Q8H ELGIN Stop: 03/19/21 14:59 Last Admin: 02/17/21 14:33 Dose: 200 gm Documented by: [id number] Discontinued Medications Lactulose 200 gm/ Sterile Water 700 ml/ BARCODE IDENTIFIER 1 ea 0 gm GA NOW STA Stop: 02/17/21 11:47 Last Admin: 02/17/21 14:02 Dose: Not Given Documented by: [id number] Levetiracetam 2,000 mg/ Sodium (Chloride) 270 mls @ 999 mls/hr IV NOW STA Stop: 02/17/21 10:33 Last Infusion: 02/17/21 10:50 Dose: 0 mls/hr Documented by: [id number] Admin: 02/17/21 10:33 Dose: 999 mls/hr Documented by: [id number] Ioversol (Optiray 320 125ml) 120 ml IV ONCE ONE Stop: 02/17/21 09:51 Last Admin: 02/17/21 09:51 Dose: 120 ml Documented by: [id number] Imaging Data Radiologist's Impression: Chest X-Ray 02/17/21 09:41 XR chest 1V portable CLINICAL HISTORY: Stroke Like Symptoms COMPARISON STUDY: 01/07/2021 FINDINGS: The patient is mildly rotated. The heart is at the upper limits of normal in size. There is no failure. There is no focal pulmonary consolidation. There are no pleural effusions. The patient's chin obscures the left lung apex.[ IMPRESSION: No active disease in the chest. ACT 112: Negative or not required by law. Electronically signed by: Lb Ellis M.D. 02/17/2021 10:[address] 02/17/21 09:41 CT head/brain wo con CLINICAL HISTORY: Stroke Like Symptoms COMPARISON STUDY: None TECHNIQUE: Axial CT of the brain is performed from the vertex to the skull base. IV contrast was not administered for this examination. A dose lowering technique was utilized adhering to the principles of ALARA. CT DOSE: FINDINGS: No intra or extra-axial mass lesions are visualized. There is no CT evidence of acute cortical infarction. There is no evidence of midline shift. There is no acute hemorrhage. No calvarial fractures are visualized. There are patchy white matter hypodensities likely on a small vessel basis. 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 There are atrophic changes present. There is no evidence of pathologic ventricular dilatation. There is no evidence of acute sinusitis IMPRESSION: 1. 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 No acute intracranial findings ACT 112: Negative or not required by law. Electronically signed by: Lb Ellis M.D. 02/17/2021 10:05 AM Head CTA 02/17/21 09:41 CT angio head w con CLINICAL HISTORY: Stroke Like Symptoms TECHNIQUE: CT angiography of the head was performed in a dynamic helical fashion during intravenous administration of 120 cc of Optiray 320. MIP imaging was performed. A dose lowering technique was utilized adhering to the principles of ALARA. CT DOSE: 1264.34 mGy.cm COMPARISON STUDY: No previous studies for comparison. FINDINGS: There are no lesion suspicious for aneurysm. There are no major intrac ranial branch occlusions. The dural venous sinuses appear patent. IMPRESSION: 1. No evidence of aneurysm. 2. No evidence of major intracranial branch occlusion or stenosis ACT 112: Negative or not required by law. Electronically signed by: Lb Ellis M.D. 02/17/2021 10:10 AM Neck CTA 02/17/21 09:41 CT angio neck with con CLINICAL HISTORY: Stroke Like Symptoms COMPARISON STUDY: No previous studies for comparison. TECHNIQUE: CT angiography was performed from the aortic arch to the skull base. MIP imaging was performed. The patient was scanned in a dynamic helical fashion during intravenous administration of 120 cc of Optiray 320. A dose lowering technique was utilized adhering to the principles of ALARA. CT DOSE: Technique: CT angiogram of the carotid and vertebral arteries was obtained using intravenous contrast and 3-D reconstruction. NASCET criteria was utilized. Findings: There is a 9 mm left parotid gland nodule possibly representing intraparotid lymph node. The right carotid revealed no evidence of aneurysm and no evidence of dissection. There is no evidence of hemodynamic significant stenosis. There are atheromatous changes present the level of the right carotid bulb The left carotid revealed no evidence of hemodynamic significant stenosis. There is no evidence of aneurysm. There is no evidence of dissection. There are atheromatous changes present at the level of the left carotid bulb There is no evidence of hemodynamically significant vertebral stenosis. There is no evidence of vertebral dissection. IMPRESSION: No evidence of hemodynamically significant carotid or vertebral artery stenosis. No evidence of dissection. ACT 112: Negative or not required by law. Electronically signed by: Lb Ellis M.D. 02/17/2021 10:08 AM Discharge Plan Visit Data Chief Complaint: Stroke Alert Stated Complaint: STROKE ALERT ED Provider: Rolan Garvin Discharge Problem: Altered mental status, Hepatic encephalopathy, HTN (hypertension), Anemia, Le ukopenia, Thrombocytopenia Patient Disposition: Admitted As Inpatient Discharge Instructions Interventions: ED Discharge Assessment Last Done: 02/17/21 12:42 Discharge Problem: Altered mental status Qualifiers: Altered mental status type: unspecified Qualified Code(s): R41.82 - Altered mental status, unspecified HTN (hypertension) Qualifiers: Hypertension type: unspecified Qualified Code(s): I10 - Essential (primary) hypertension Anemia Qualifiers: Anemia type: unspecified type Qualified Code(s): D64.9 - Anemia, unspecified Leukopenia Qualifiers: Leukopenia type: unspecified Qualified Code(s): D72.819 - Decreased white blood cell count, unspecified
[2021-02-17 10:17] LABS: Hematocrit (blood only) 26.6 % (42-52); Hemoglobin 8.9 g/dL (14.0-18.0); Mean Corpuscular Hemoglobin 29.8 pg (25-34); Mean Corpuscular Hgb Conc 33.5 g/dL (32-36); RDW Coefficient of Variation 18.5 % (11.5-14.5); RDW Standard Deviation 60.3 fL (36.4-46.3); Red Blood Count 2.99 M/uL (4.7-6.1)
[2021-02-17 10:19] LABS: Mean Platelet Volume 9.7 fL (7.4-10.4); Platelet Count 82 K/uL (130-400)
--- NOTE | 2021-02-17 10:23 | Electrocardiogram Report ---
Test Reason : Blood Pressure : / mmHG Vent. Rate : 095 BPM Atrial Rate : 095 BPM P-R Int : 148 ms QRS Dur : 074 ms QT Int : 376 ms P-R-T Axes : 053 058 043 degrees QTc Int : 472 ms Poor data quality, interpretation may be adversely affected Sinus rhythm with Premature supraventricular complexes Nonspecific ST abnormality Anterior leads Abnormal ECG When compared with ECG of 07-JAN-2021 15:35, Premature supraventricular complexes are now Present Confirmed by Rufino De Los Santos ([id number]) on 02/17/2021 10:22:37 AM Referred By: Confirmed By:Rufino De Los Santos
--- NOTE | 2021-02-17 10:30 | XRay Report ---
XR chest 1V portable CLINICAL HISTORY: Stroke Like Symptoms COMPARISON STUDY: 01/07/2021 FINDINGS: The patient is mildly rotated. The heart is at the upper limits of normal in size. There is no failure. There is no focal pulmonary consolidation. There are no pleural effusions. The patient's chin obscures the left lung apex.[ IMPRESSION: No active disease in the chest. ACT 112: Negative or not required by law. Electronically signed by: Lb Ellis M.D. 02/17/2021 10:29 AM
[2021-02-17 10:36] LABS: INR 1.3 (0.9-1.1); Partial Thromboplastin Ratio 1.1; Partial Thromboplastin Time 27.8 Seconds (21.0-31.0); Prothrombin Time 12.6 Seconds (9.0-12.0)
[2021-02-17 10:38] LABS: Alanine Aminotransferase 25 U/L (12-78); Albumin Level 2.7 gm/dl (3.4-5.0); Aspartate Aminotransferase 43 U/L (15-37); BUN Creatinine Ratio 12.7 (10-20); Blood Urea Nitrogen 23 mg/dl (7-18); Calcium 8.8 mg/dl (8.5-10.1); Carbon Dioxide 20 mmol/L (21-32); Chloride 115 mmol/L (98-107); Est GFR (African American) 42.1; Est GFR (Non-African American) 36.3; Glucose 157 mg/dl (70-99); Magnesium 1.9 mg/dl (1.8-2.4); Potassium 3.9 mmol/L (3.5-5.1); Sodium 141 mmol/L (136-145)
[2021-02-17 10:43] LABS: Albumin Globulin Ratio 0.6 (0.9-2); Alkaline Phosphatase 141 U/L (45-117); Bilirubin,Total 1.6 mg/dl (0.2-1); Globulin 4.3 gm/dl (2.5-4.0); Troponin I < 0.015 ng/ml (0-0.045)
[2021-02-17 10:54] LABS: Basophils # (auto) 0.02 K/uL (0-0.2); Basophils % (auto) 0.4 %; Eosinophils # (auto) 0.48 K/uL (0-0.5); Eosinophils % (auto) 10.4 %; Immature Granulocytes # (auto) 0.01 K/uL (0.00-0.02); Immature Granulocytes % (auto) 0.2 %; Lymphocytes # (auto) 0.52 K/uL (1.2-3.4); Lymphocytes % (auto) 11.3 %; Monocytes # (auto) 0.51 K/uL (0.11-0.59); Monocytes % (auto) 11.1 %; Neutrophils # (auto) 3.06 K/uL (1.4-6.5); Neutrophils % (auto) 66.6 %
[2021-02-17] MEDS ORDERED: LACTULOSE 200 GM, WATER, STERILE IRRIG 700 ML, BARCODE IDENTIFIER 1 EA PR STA (11:46)
--- NOTE | 2021-02-17 11:47 | History & Physical Report ---
Date of Service February 17, 2021 Assessment & Plan (1) Hepatic encephalopathy: Suspect this is the primary cause of his reduced responsiveness. Unable to take p.o. medication at this time Lactulose enema every 8 hourly GCS 10 (E4V2M4) on admission (2) Anemia: Normocytic. Hemoglobin around above baseline 8.9. Notable recent history of life-threatening GI bleed and bright red blood noted in ER. H&H every 6 hourly Type and screen (3) Abdominal ascites: Do not suspect SBP given lack of leukocytosis, fever, abdominal pain Recommend routine paracentesis performed with albumin to be dosed depending on number of liters taken off. Preliminary arrange for Friday. Need to perform urgently if SBP more of concern Consider IV diuretics as long as blood pressure stable overnight (4) BPH (benign prostatic hyperplasia): Rausch catheter to be placed due to unresponsive state. Holding all p.o. meds including tamsulosin while patient lacks responsiveness (5) CAD (coronary artery disease): Prior history of this s/p LAD PCI (multiple) Non on antiplatelet therapy due to recent life-threatening bleed. Consider restarting BB during hospitalization if able (previously on nadolol per last cardiology notes Continue atorvastatin 20mg PO daily when able to take PO meds (6) COPD (chronic obstructive pulmonary disease): No acute exacerbation suspected Continue usual maintenance inhalers when able (7) Liver cirrhosis: (8) Esophageal varices: Avoid NG tube if possible (9) GI bleed: Bright red blood in ER H&H Q6H (10) DVT prophylaxis: SCDs No chemical prophylaxis due to prior life threatening bleed Admission and Anticipated Discharge Date Admission Date: February 17, 2021 History of Present Illness Chief Complaint: Decreased responsiveness Primary Care Provider: Osmany Molina MD Alfredo Willis is a 70-year-old male who presents to the ER via EMS from [place]. He was found down and unresponsive by staff during morning rounds this morning. On arrival to the ER occasional spontaneous movements of limbs noted, moaning to touch, unable to follow commands. There was some concern about leftward gaze but unclear whether this is acute or chronic. Unable to get any history from the patient. The patient has a significant history of liver cirrhosis with esophageal varices. He was recently admitted with a life-threatening lower GI bleed from January 06 to March 3rd with hemoglobin 6.0 and hypotension requiring ICU admission and dialysis. No significant bleeding since that time and hemoglobin at baseline. In the ER he underwent stroke workup although his symptoms are non-focal. WBC at baseline. Ammonia 161.9. He was referred to medicine for admission and ongoing management of altered mental state. Allergies Allergy/AdvReac Type Severity Reaction Status Date / Time fentanyl AdvReac Severe WENT Verified 02/08/21 12:40 CRAZY, HALLUCINATIONS, BIZARRE BEHAVIOR Home Medications Medication Instructions Recorded Confirmed Type Spiriva Respimat 2 puff INHALATION QAM 08/14/20 02/17/21 History cyanocobalamin (vitamin B-12) 500 mcg PO QAM 08/14/20 02/17/21 History [Vitamin B-12] ferrous sulfate 325 mg PO QAM 08/14/20 02/17/21 History finasteride [Proscar] 5 mg PO QAM 08/14/20 02/17/21 History folic acid 1 mg PO QAM 08/14/20 02/17/21 History tamsulosin 0.4 mg PO QAM 08/14/20 02/17/21 History atorvastatin 20 mg PO QAM 08/23/20 02/17/21 History budesonide-formoterol 2 puff INHALATION BID 08/23/20 02/17/21 History gabapentin 600 mg PO TID 08/23/20 02/17/21 History magnesium oxide 420 mg PO QAM 08/23/20 02/17/21 History meclizine 12.5 mg PO TID PRN 08/23/20 02/17/21 History melatonin 3 mg PO HS PRN 08/23/20 02/17/21 History multivitamin with minerals 1 tab PO QAM 08/23/20 02/17/21 History [Multiple Vitamin-Minerals] docusate sodium [Colace] 100 mg PO BID #60 cap 11/14/20 02/17/21 Rx furosemide 20 mg PO BID 30 Days #60 tab 01/17/21 02/17/21 Rx spironolactone 100 mg PO QAM 30 Days #30 tab 01/17/21 02/17/21 Rx Past Med/Surg History Medical History (Updated 02/17/21 @ 22:26 by Chris Miller MD) Acute hypotension Acute kidney injury Acute lower GI bleeding Aortic aneurysm CAD (coronary artery disease) Follows with [facility] Chronic pain COPD (chronic obstructive pulmonary disease) Crohn's disease Crushing injury of chest 1970s Depression DM type 2 (diabetes mellitus, type 2) NIDDM Dyslipidemia Esophageal varices Esophageal varices with banding x 3 (most recent approx 1 year ago) Hepatic encephalopathy history of 2019 History of CVA (cerebrovascular accident) approx 6 years ago; no residual History of hepatitis C History of nephrolithiasis History of prostate cancer dx 1 year ago; radiation History of subdural hematoma HTN (hypertension) Hypertension Malignant neoplasm of prostate Non-alcoholic cirrhosis Peripheral neuropathy Poor historian history obtained from staff member at [facility] and pt Tremor Surgical History (Updated 02/08/21 @ 13:21 by Saad Griffith MD) H/O inguinal hernia repair left side History of aortic aneurysm repair History of cardiac cath 2017 [facility] History of cholecystectomy History of cystoscopy History of esophageal surgery as an History of facial surgery as a child following injury History of hernia repair multiple S/P coronary artery stent placement Family History Other Family history non-contributory Social History Smoking Status: Unknown if ever smoked Tobacco Type: Cigarettes Cigarettes Per Day: 1-2 per day; Second Hand Exposure: No; Hx Alcohol Use: No Hx Substance Use: No Preferred Language: Gabonese Communication Ability: Effective Beeswax Bleacher Required: No Beliefs That Will Affect Care: None Current Living Situation: Personal Care Facility Current Living Situation Comment: [facility] Feels Safe at Home: Yes Assistive Devices: None Review of Systems Review of Systems: Unobtainable due to cognitive status Physical Exam Constitutional: + ill appearing and + frail appearing; no acute distress Eyes: PERRL, conjunctivae normal, anicteric sclerae (sluggish) ENMT: Mouth: + dry oral mucous membranes Neck: trachea midline Respiratory: normal respiratory effort; no retractions and does not use accessory muscles Auscultation: + crackles (upper airway sounds only); no diminished lung sounds and no wheezes Cardiovascular: Rate/Rhythm: regular rate and regular rhythm Heart Sounds: no murmur Vessels: no JVD Extremities: normal capillary refill and + pedal edema Gastrointestinal (Abdomen): Inspection/Auscultation: + abdomen distended and + hypoactive bowel sounds Percussion/Palpation: abdomen soft; abdomen nontender, no guarding and abdomen not rigid Skin: no rashes, warm and dry (no areas of cellulitis noted) Neurologic: awake (GCS 10 (E4 V2 M4)) and + confused; + does not move all extremities (Bilaterally not moving extremities and tone decreased) Speech / Cognition: + abnormal speech (Groans only) Motor/Sensory: + abnormal movement (Not moving all 4 extremities) Psychiatric: Orientation: alert (Falls asleep easily); + not oriented x 3 Genitourinary: no CVA tenderness Results & Data Results & Data ([facility]) Vital Signs (Past 12 Hours) Vital Signs Pulse Resp BP Pulse Ox 02/17/21 11:10 91 H 20 98 02/17/21 11:00 87 18 98 02/17/21 10:53 105 H 19 99 02/17/21 10:40 81 98 02/17/21 10:31 88 138/85 98 02/17/21 10:30 87 98 02/17/21 10:20 100 02/17/21 10:10 96 H 99 02/17/21 10:06 98 H 176/94 H 99 02/17/21 09:40 96 H 23 176/94 [address] head/brain wo con IMPRESSION: 1. 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 No acute intracranial findings CT angio head w con IMPRESSION: 1. No evidence of aneurysm. 2. No evidence of major intracranial branch occlusion or stenosis Medications Administered ER Medications given: Keppra 2g IV ECG Indication: altered mental status Rate (beats per minute): 95 Rhythm: normal sinus Findings: + other (premature SV complexes, non specific ST abnormality) Comparison ECG Date: from (Jan 07, 2021) Change: the following changes noted (premature supraventricular complexes now present) Code Status & VTE Plan Code Status DNR - all other treatment outside of cardiac arrest including intubation (unable to discuss with patient but this was his previous wishes and confirmed with his sister) VTE Prophylaxis Plan VTE Prophylaxis will be ordered: Yes PG Care Time/CCT Total # of Minutes Spent Total Time Spent with Patient: Total time spent is greater than 50% in coordination of care (as documented) at patient's floor/unit and/or counseling patient: Coding Level of Care Code 38869 Initial In Care Lvl 3 Diagnoses Hepatic encephalopathy K72.90 Anemia D64.9 Anemia type: unspecified type Abdominal ascites R18.8 Ascites type: other type BPH (benign prostatic hyperplasia) N40.0 CAD (coronary artery disease) I25.10 COPD (chronic obstructive pulmonary disease) J44.9 Liver cirrhosis K74.60; R18.8 Ascites presence: with ascites Hepatic cirrhosis type: unspecified hepatic cirrhosis Esophageal varices I85.00 Esophageal varices bleeding: without bleeding Esophageal varices type: unspecified type GI bleed K92.2 DVT prophylaxis Z29.9 (1) Abdominal ascites Ascites type: other type Qualified Code(s): R18.8 - Other ascites (2) Anemia Anemia type: unspecified type Qualified Code(s): D64.9 - Anemia, unspecified (3) Esophageal varices Esophageal varices bleeding: without bleeding Esophageal varices type: unspecified type Qualified Code(s): I85.00 - Esophageal varices without bleeding (4) Liver cirrhosis Ascites presence: with ascites Hepatic cirrhosis type: unspecified hepatic cirrhosis Qualified Code(s): K74.60 - Unspecified cirrhosis of liver; R18.8 - Other ascites
[2021-02-17 11:59] LABS: Influenza A virus by PCR Negative (Neg); Influenza B virus by PCR Negative (Neg); RSV by PCR Negative (Neg); SARS CoV2 RNA(COVID-19) InHosp NEGATIVE (Negative)
[2021-02-17] MEDS: LACTULOSE 200 GM, WATER, STERILE IRRIG 700 ML, BARCODE IDENTIFIER 1 EA PR SCH ×2 (14:33→23:19)
[2021-02-17] MEDS ORDERED: metroNIDAZOLE 500 MG/100 ML BAG IV SCH (17:00)
--- NOTE | 2021-02-17 18:20 | Consultation Report ---
DATE OF CONSULTATION: 02/17/2021 REASON FOR CONSULTATION: Hepatic encephalopathy. HISTORY OF PRESENT ILLNESS: The patient is a 70-year-old male resident of [place] was found unresponsive on the floor today. He was brought to the Emergency Room and was evaluated with a CT of the head, CT angiogram of the head and neck, all of which were negative for any acute injuries. His ammonia level returned about 161 and he has been started on rectal lactulose every 8 hours. He does have underlying cirrhosis of the liver from hepatitis C in the past as well as nonalcoholic steatohepatitis. His cirrhosis is complicated by ascites, encephalopathy and grade 2 esophageal varices. He was recently hospitalized with rectal bleeding and found to have radiation proctitis. This was treated with argon plasma coagulation and he has not had significant bleeding in the last month or two since treatment. PAST MEDICAL HISTORY: Remarkable for coronary artery disease, COPD. He has Crohn's disease, type 2 diabetes, hyperlipidemia, hypertension, cirrhosis complicated by varices and encephalopathy and ascites. He has had a CVA in the past, history of hepatitis C, kidney stones, prostate cancer, treated with radiation a year ago. He has had a subdural hematoma and has peripheral neuropathy. He has had a left inguinal hernia repair, aortic aneurysm repair, cholecystectomy. He has had esophageal surgery as an and coronary stent. SOCIAL HISTORY: The patient smokes 1-2 cigarettes per day. No alcohol. He lives at [facility]. ALLERGIES: FENTANYL. MEDICATIONS: Include B12, iron, Proscar, folic acid, Flomax, atorvastatin, budesonide inhaler, gabapentin, magnesium oxide, meclizine, melatonin, multiple vitamins, Colace, furosemide, and spironolactone. PHYSICAL EXAMINATION: GENERAL: The patient is lying on his back in bed, unresponsive. He has a Rausch in. He has spider angiomatous on his chest. ABDOMEN: Shows a right upper quadrant and epigastric scars. Abdomen is slightly distended and dull to percussion. The patient does not respond to tactile stimulation, I was not able to feel his liver or spleen. IMPRESSION: The patient is poorly responsive, probably from hepatic encephalopathy. Continue at this point giving him the lactulose enemas. Once he is able to take p.o., we can add Xifaxan 550 mg twice a day. He is scheduled to have a paracentesis on Friday. We will follow the patient during his hospital stay.
[2021-02-17 18:48] LABS: Hemoglobin 9.4 g/dL (14.0-18.0)
[2021-02-17] MEDS: DOCUSATE SODIUM 100 MG CAP PO SCH (19:38)
[2021-02-17] MEDS ORDERED: LACTULOSE 200 GM, WATER, STERILE IRRIG 700 ML, BARCODE IDENTIFIER 1 EA PR SCH (20:00)
[2021-02-17] MEDS ORDERED: PIPERACILL/TAZOBAC CONSULT ACTIVE PRN (23:51)
[2021-02-18] MEDS ORDERED: PIPERACILLIN/TAZOBACTAM 4.5 GM in DEXTROSE 5% 100 ML IV ONE
--- NOTE | 2021-02-18 00:19 | Communication Note ---
Date of Service: February 18, 2021 Called to evaluate patient after he developed a fever of 38.3C. Per review of prior notation, patient has been altered and unable to answer questions/follow commands since admission. He was initially found unresponsive at his room in [facility] earlier today. Upon entry to the room noted that patient has his eyes open and is coughing every 30-45 seconds, but otherwise does not follow any commands. He will not look towards me, respond vocally, or squeeze my fingers with either hand. Exam: Heart: Tachycardic, no murmurs Lungs: Anterior lung riggs distant though clear Abdomen: Soft, tympanic, unsure of tenderness to palpation as patient does not appear to react with touched. DOES NOT appear to be an acute abdomen at this time. Bowel sounds present. Neuro: Awake though confused, not moving extremities, not oriented x3 and does not follow instructions. Plan: -Concern for SBP increased as patient now has fever in addition to his AMS, unable to determine pain. -Will escalate Abx therapy to Zosyn, DC metronidazole -Blood cultures and lactic drawn -As abdomen is still soft, will hold on CT scan at this time though low suspicion if abdominal exam should change/vital signs and fever worsen -Called patients POA and sister Juvenal Douglas to discuss patients current situation. She noted that patient at this time would want us to continue with current measures including antibiotic treatment, however, he would NOT want to be resuscitated or intubated. Per discussion with patient's POA patient is now a DNR/DNI. Status changed in the chart. 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
[2021-02-18 01:04] LABS: Basophils # (auto) 0.04 K/uL (0-0.2); Basophils % (auto) 0.4 %; Eosinophils # (auto) 0.48 K/uL (0-0.5); Eosinophils % (auto) 4.7 %; Hematocrit (blood only) 29.6 % (42-52); Hemoglobin 9.9 g/dL (14.0-18.0); Immature Granulocytes # (auto) 0.02 K/uL (0.00-0.02); Immature Granulocytes % (auto) 0.2 %; Lymphocytes # (auto) 0.74 K/uL (1.2-3.4); Lymphocytes % (auto) 7.2 %; Mean Corpuscular Hemoglobin 29.7 pg (25-34); Mean Corpuscular Volume 88.9 fL (80-100); Mean Platelet Volume 10.1 fL (7.4-10.4); Monocytes # (auto) 0.87 K/uL (0.11-0.59); Monocytes % (auto) 8.5 %; Neutrophils # (auto) 8.11 K/uL (1.4-6.5); Platelet Count 108 K/uL (130-400); RDW Coefficient of Variation 18.8 % (11.5-14.5); RDW Standard Deviation 61.5 fL (36.4-46.3); Red Blood Count 3.33 M/uL (4.7-6.1); White Blood Count 10.26 K/uL (4.8-10.8)
[2021-02-18 01:05] LABS: Mean Corpuscular Hgb Conc 33.4 g/dL (32-36)
[2021-02-18 01:12] LABS: BUN Creatinine Ratio 14.2 (10-20); Calcium 8.8 mg/dl (8.5-10.1); Creatinine Clr Calc Pharmacy 39.7 ml/min; Est GFR (African American) 40.5; Est GFR (Non-African American) 34.9; Potassium 3.7 mmol/L (3.5-5.1)
[2021-02-18] MEDS: PATIENT'S HEIGHT AND/OR WEIGHT NEEDED SCH ×4 (01:12→12:57)
[2021-02-18] MEDS ORDERED: LACTATED RINGER'S 1,000 ML IV ONE (01:42)
[2021-02-18 01:50] LABS: Allen Test Pos (Pos); HCO3 ABG 16 mmol/L (19-24); PCO2 ABG 21 mmHg (35-46); PO2 ABG 71 mmHg (80-95)
[2021-02-18] MEDS ORDERED: LACTULOSE 200 GM, WATER, STERILE IRRIG 700 ML, BARCODE IDENTIFIER 1 EA PR STA (02:09)
[2021-02-18 05:59] LABS: Basophils # (auto) 0.03 K/uL (0-0.2); Basophils % (auto) 0.2 %; Eosinophils # (auto) 0.08 K/uL (0-0.5); Eosinophils % (auto) 0.6 %; Hematocrit (blood only) 28.3 % (42-52); Hemoglobin 9.6 g/dL (14.0-18.0); Immature Granulocytes # (auto) 0.03 K/uL (0.00-0.02); Immature Granulocytes % (auto) 0.2 %; Lymphocytes # (auto) 1.19 K/uL (1.2-3.4); Lymphocytes % (auto) 9.2 %; Mean Corpuscular Hgb Conc 33.9 g/dL (32-36); Mean Corpuscular Volume 88.4 fL (80-100); Mean Platelet Volume 9.4 fL (7.4-10.4); Monocytes # (auto) 0.33 K/uL (0.11-0.59); Monocytes % (auto) 2.6 %; Neutrophils # (auto) 11.28 K/uL (1.4-6.5); Neutrophils % (auto) 87.2 %; Platelet Count 102 K/uL (130-400); RDW Coefficient of Variation 18.8 % (11.5-14.5); RDW Standard Deviation 61.1 fL (36.4-46.3); White Blood Count 12.94 K/uL (4.8-10.8)
[2021-02-18] MEDS: LACTULOSE 200 GM, WATER, STERILE IRRIG 700 ML, BARCODE IDENTIFIER 1 EA PR SCH ×3 (06:07→23:29)
[2021-02-18 06:31] LABS: BUN Creatinine Ratio 13.6 (10-20); Calcium 9.3 mg/dl (8.5-10.1); Creatinine Clr Calc Pharmacy 37.3 ml/min; Est GFR (African American) 37.6; Est GFR (Non-African American) 32.4; Potassium 3.8 mmol/L (3.5-5.1)
[2021-02-18 06:38] LABS: Albumin Globulin Ratio 0.6 (0.9-2); Bilirubin,Total 2.6 mg/dl (0.2-1); Globulin 4.7 gm/dl (2.5-4.0); Total Protein 7.7 gm/dl (6.4-8.2)
--- NOTE | 2021-02-18 08:38 | XRay Report ---
KUB CLINICAL HISTORY: Generalized abdominal pain. FINDINGS: 2 AP, portable, supine abdominal radiographs are compared to study dated 01/12/2021. There i s a nonobstructed abdominal bowel gas pattern. No evidence of intraperitoneal free air is seen on the se supine images. Cholecystectomy clips are noted in the right upper quadrant. Excreted IV contrast f ills the bladder lumen and a Rausch catheter is in place. The skeletal structures are osteopenic and a ppear intact. There is lumbosacral spondylosis. IMPRESSION: Nonobstructed abdominal bowel gas pattern. Electronically signed by: Titi Jara M.D. 02/18/2021 8:37 AM
--- NOTE | 2021-02-18 08:39 | XRay Report ---
SINGLE VIEW CHEST CLINICAL HISTORY: Dyspnea. FINDINGS: An AP, portable, upright chest radiograph is compared to study dated 02/17/2021. The cardiome diastinal silhouette is unremarkable noting atherosclerotic calcification of the thoracic aorta. Emph ysema and chronic interstitial thickening are similar to previous. There is bibasilar scarring/atelec tasis. No airspace consolidation or large pleural effusion is identified. No pneumothorax is seen. Th e skeletal structures are osteopenic. The bony thorax is grossly intact. Cholecystectomy clips are no mg in the right upper quadrant. IMPRESSION: Emphysematous change with no active disease in the chest. ACT 112: Negative or not required by law. Electronically signed by: Titi Jara M.D. 02/18/2021 8:38 AM
[2021-02-18] MEDS ORDERED: PIPERACILLIN/TAZOBACTAM 3.375 GM in DEXTROSE 5% 100 ML IV ONE (09:00)
[2021-02-18] MEDS: metroNIDAZOLE 500 MG/100 ML BAG IV SCH ×3 (09:02→23:30)
--- NOTE | 2021-02-18 09:06 | CT Scan Report ---
CT SCAN OF THE ABDOMEN AND PELVIS WITHOUT IV CONTRAST CLINICAL HISTORY: Cirrhosis. Fever. COMPARISON STUDY: Abdominal CT dated 01/06/2021. TECHNIQUE: CT scan of the abdomen and pelvis is performed from the lung bases to the proximal femora. Images are reviewed in the axial, sagittal, and coronal planes. IV contrast was not administered for this examination. Note that the examination is significantly suboptimal without oral and IV contrast . There is also motion artifact, and streak artifact from the left arm which could not be elevated ab ove the abdomen. A dose lowering technique was utilized adhering to the principles of ALARA. The abdo men was scanned twice due to motion artifact. CT DOSE: 1522.05 mGy.cm FINDINGS: Lung bases: The heart is normal in size and without pericardial effusion. The coronary arteries are d ensely calcified. There is a small to moderate hiatal hernia. Esophageal varices are noted. Emphysema tous changes suspected. The lung bases are clear noting bibasilar scarring/atelectasis. Gynecomastia is noted. Liver: The unenhanced liver is cirrhotic in morphology and heterogeneous in attenuation. There is nod ularity of the surface contour and hypertrophy of the left lobe. There is no intrahepatic biliary emigdio carla dilatation. Gallbladder: Surgically absent noting clips in the gallbladder fossa. Spleen: The spleen is mildly enlarged measuring 13.9 cm in length. Pancreas: The unenhanced pancreas is moderately atrophic and grossly unremarkable. Adrenal glands: Unremarkable. Kidneys: The unenhanced kidneys are atrophic and without hydronephrosis. There is residual cortical c ontrast. Contrast is also seen within the renal collecting systems. This degrades assessment for jovita l calculi. There is no evidence of contour deforming renal mass lesion. Abdominal vasculature: There is moderate to advanced atherosclerotic calcification and mild ectasia o f the abdominal aorta. Bowel: Metallic foreign bodies are present in the rectum. There is rectal wall thickening and edema w ith perirectal inflammation. No bowel obstruction is identified. There is wall thickening and edema i nvolving the right colon as well as the proximal transverse colon. The appendix is not visualized Peritoneum: There is a moderate volume of abdominopelvic ascites. No intraperitoneal free air is iden tified. Lymphadenopathy: None. Pelvic viscera: The bladder is partially decompressed around a Rausch catheter. Intraluminal gas is li forest related to instrumentation. The bladder lumen is filled with IV contrast, as is a right ureteroc jimena. The prostate gland is enlarged and heterogeneous. The bladder wall is thickened and trabeculated indicating chronic outlet obstruction. Ascitic fluid was contained within a left inguinal hernia. Skeletal structures: The skeletal structures are osteopenic. Moderate lumbosacral spondylosis is obse rved. No lytic or blastic lesions are seen. There are healed bilateral rib fractures. IMPRESSION: 1. Significantly streak and motion compromised examination. 2. Cirrhotic liver morphology 3. A moderate volume of abdominopelvic ascites, splenomegaly, and esophageal varices indicate portal hypertension. 4. Metallic foreign bodies are noted in the rectum and there is significant rectal wall thickening wi th perirectal inflammation. This could be related to portal hypertension or a nonspecific proctitis. 5. There is significant wall thickening and edema involving the right colon and the proximal transver se colon. This could represent portal colopathy versus a nonspecific colitis. 6. Emphysema. 7. There is retained cortical contrast within the kidneys. Correlate clinically for evidence of renal injury/insufficiency. 8. Additional findings as above. ACT 112: Negative or not required by law. Electronically signed by: Titi Jara M.D. 02/18/2021 9:04 AM
[2021-02-18] MEDS: TAMSULOSIN HCL 0.4 MG CAP PO SCH (09:26)
[2021-02-18] MEDS: FERROUS SULFATE 325 MG TAB PO SCH (09:26)
[2021-02-18] MEDS: FLUTICASONE/VILANTEROL 100/25MCG 14 PUFFS/INHALER INH SCH (09:26)
[2021-02-18] MEDS: FOLIC ACID 1 MG TAB PO SCH (09:26)
[2021-02-18] MEDS: DOCUSATE SODIUM 100 MG CAP PO SCH ×2 (09:26→20:36)
[2021-02-18] MEDS: UMECLIDINIUM BROMIDE 62.5MCG/BLISTER 7 PUFFS/INHALER INH SCH (09:27)
[2021-02-18] MEDS: ATORVASTATIN 20 MG TAB PO SCH (09:27)
[2021-02-18] MEDS: FINASTERIDE 5 MG TAB PO SCH (09:27)
[2021-02-18] MEDS: CEROVITE ADV FORMULA TAB PO SCH (09:27)
[2021-02-18] MEDS: PIPERACILLIN/TAZOBACTAM 3.375 GM in DEXTROSE 5% 100 ML IV SCH ×2 (13:12→20:36)
--- NOTE | 2021-02-18 13:57 | Hospitalist Progress Note ---
Date of Service February 18, 2021 Assessment & Plan (1) Altered mental status: Patient with Martin and previous history of altered mental status due to hepatic encephalopathy CT head is negative for any acute findings or lesions Patient found to have high ammonia level. This still remains high at 96 Patient is n.p.o. secondary to altered mental status. Continue with lactulose enemas every 8 hours and follow serial labs Unclear etiology for mental status as patient's ammonia level is high but patient also has fever of 39.3 and rising white count Continue empiric treatment with IV Zosyn and IV metronidazole Blood cultures x2 are pending Urine negative although it has some blood No other acute signs of infection. (2) Colitis: Nondescript colitis on CT scan with no evidence of perforation Patient with fever of 39.3 and rising white count Continue with IV Zosyn and IV metronidazole Continue n.p.o. Avoid NG tube as possible secondary to question of esophageal varices Check procalcitonin with a.m. labs (3) Abdominal ascites: Order placed for patient to have possible paracentesis tomorrow Continue with IV antibiotics pending sample Patient responsive but no specific pain or guarding with abdominal examination Patient now with fever, white count. CT scan of the abdomen with no specific findings other than a diffuse colitis. No free air. No evidence of perforation. Check labs with paracentesis tomorrow; until then, continue Zosyn and Flagyl IV (4) BPH (benign prostatic hyperplasia): Continue finasteride Continue horn catheter while inpatient No indication for digital rectal exam at this point Outpatient follow-up (5) HTN (hypertension): Patient NPO and in PCU telemetry Hydralazine for SBP > 180 Allow for some permissive hypertension secondary to mental status changes (6) Anemia: Chronic Continue ferrous sulfate Follwo serial labs No active bleeding (7) Chronic kidney disease, stage II (mild): Creatinine 2.02 BUN 27 Patient 950 mL ahead this admission (8) CAD (coronary artery disease): Continue in telemetry unit Was on the beta-klaudia previously but this was discontinued due to acute GI bleed Patient would benefit from beta-klaudia again secondary to CAD with status post placement of LAD PCI. Patient also has portal hypertension We will start IV Lopressor at 5 mg IV every 6 hours Continue atorvastatin Hold aspirin at this time secondary to colitis (9) COPD (chronic obstructive pulmonary disease): Currently oxygenating with Oxymask in place Maintain SaO2 between 88 and 92% Continue budesonide/formoterol Continue Spiriva Continue diuresis as tolerated. (10) Hypertension: Beta-klaudia held in the past secondary to acute GI bleed and hypotension Restart Lopressor 5 mg every 6 hours while inpatient Consider Lopressor 25 mg every 12 hours on discharge Hydralazine 5 mg IV as needed for systolic blood pressure greater than 180 (11) Malignant neoplasm of prostate: PSA 0.12 Outpatient management (12) Portal vein thrombosis: Not anticoagulated as an outpatient Continue good blood pressure control Follow (13) Thrombocytopenia: Platelet count now over 100,000 Continue to follow serial labs (14) GI bleed: GI consulted for hepatic encephalopathy No melena hematochezia or bright red blood per rectum +2 blood in the urine Continue with supportive care and serial labs (15) DVT prophylaxis: INR 1.3 (16) Acute upper gastrointestinal bleeding: Admission and Anticipated Discharge Date Admission Date: February 17, 2021 Subjective Attending: Dr. Conklin Patient seen and examined at bedside today. He is still nonverbal and does not follow commands. He does respond to some painful stimuli of compression of the large toes but not to sternal rub or forehead tap. Pupils are equal round and reactive. He does move all 4 extremities but with no intentional movement. He is currently on an Oxymask and oxygenating well. He has no paradoxical chest wall movement. He appears in no distress. Ammonia level continues to be high at 96. Sodium is slightly elevated at 146 mmol/L. Blood cultures are pending x2. Urine shows +2 blood and +1 protein but otherwise appears to be negative. WBC has increased to 12.94. Patient is also febrile with a T-max of 39.3 this morning. Review of Systems Review of Systems: Unobtainable due to reduced consciousness Physical Exam Physical Exam: GENERAL : Patient unresponsive. He does move all 4 limbs. He has minimal response to painful stimuli EYES: No icterus, gaze conjugate. Pupils equal round and reactive to light NOSE: No evidence of epistaxis MOUTH: No lesions or candidiasis. Oxymask in place NECK: Supple LUNGS: CTA B/L, no wheezes, rales or rhonchi HEART: Regular, rate controlled. No appreciation of ectopy ABDOMEN: Soft, NT, ND, BS Present. No rebound tenderness with deep palpation EXTREMITIES: No LE edema, pedal pulses intact. Minimal response to pressure on large toes. NEURO: Toes are downgoing bilaterally. Unresponsive. Moves all 4 extremities spontaneously but not to command. Results & Data Results & Data ([facility]) Vital Signs (Past 12 Hours) Vital Signs Temp Pulse Pulse Resp BP BP Pulse Ox 02/18/21 12:00 37.4 C 97 H 14 162/91 H 98 02/18/21 08:31 38.1 C H 108 H 16 172/94 H 95 02/18/21 05:24 39.3 C H 109 H 26 H 182/97 H 95 02/18/21 04:14 102 H 02/18/21 04:13 37.3 C 102 H 23 178/89 H 95 Laboratory Results 02/18/21 05:47 02/18/21 05:47 Diagnostic Findings IMPRESSION: 1. Significantly streak and motion compromised examination. 2. Cirrhotic liver morphology 3. A moderate volume of abdominopelvic ascites, splenomegaly, and esophageal varices indicate portal hypertension. 4. Metallic foreign bodies are noted in the rectum and there is significant rectal wall thickening with perirectal inflammation. This could be related to portal hypertension or a nonspecific proctitis. 5. There is significant wall thickening and edema involving the right colon and the proximal transverse colon. This could represent portal colopathy versus a nonspecific colitis. 6. Emphysema. 7. There is retained cortical contrast within the kidneys. Correlate clinically for evidence of renal injury/insufficiency. 8. Additional findings as above. ACT 112: Negative or not required by law. Electronically signed by: Titi Jara M.D. 02/18/2021 9:04 AM PG Care Time/CCT Total # of Minutes Spent Total Time Spent with Patient: Total time spent is greater than 50% in coordination of care (as documented) at patient's floor/unit and/or counseling patient: Coding Level of Care Code 53749 Subseq Hosp Care Lvl 3 Diagnoses Altered mental status R41.82 Altered mental status type: unspecified Colitis K52.9 Abdominal ascites R18.8 Ascites type: other type BPH (benign prostatic hyperplasia) N40.0 HTN (hypertension) I10 Hypertension type: unspecified Anemia D64.9 Anemia type: unspecified type Chronic kidney disease, stage II (mild) N18.2 CAD (coronary artery disease) I25.10 COPD (chronic obstructive pulmonary disease) J44.9 Hypertension I10 Hypertension type: unspecified Malignant neoplasm of prostate C61 Portal vein thrombosis I81 Thrombocytopenia D69.6 GI bleed K92.2 DVT prophylaxis Z29.9 Acute upper gastrointestinal bleeding K92.2 Time Spent (min) 40 (1) Altered mental status Altered mental status type: unspecified Qualified Code(s): R41.82 - Altered mental status, unspecified (2) Abdominal ascites Ascites type: other type Qualified Code(s): R18.8 - Other ascites (3) HTN (hypertension) Hypertension type: unspecified Qualified Code(s): I10 - Essential (primary) hypertension (4) Anemia Anemia type: unspecified type Qualified Code(s): D64.9 - Anemia, unspecified (5) Hypertension Hypertension type: unspecified Qualified Code(s): I10 - Essential (primary) hypertension
[2021-02-18] MEDS ORDERED: hydrALAZINE HCL 20 MG/ML VIAL IV PRN (14:23)
--- NOTE | 2021-02-18 15:00 | Progress Notes ---
DATE: 02/18/2021 The patient developed fever overnight and had a CAT scan of the abdomen and chest x-ray. He does have ascites and cirrhosis and some nonspecific findings. His chest x-ray showed emphysematous changes, but no acute changes. Cultures were obtained from blood. He was coughing at that time. I suspect that he may have aspirated. Today the patient is on antibiotics. His ammonia has come down from 161 to the 90s, but his mental status has not improved. He still and responsive and breathing shallowly. His abdomen is relatively soft to palpation, was not able to determine if he is experiencing any pain at this time. Overnight, his resuscitation status was changed to DNR, but antibiotics are to be continued. At this point, I would continue his lactulose enemas and if he localizes any source of infection, then we can redirect our antibiotic choices to that area. He is scheduled for a paracentesis tomorrow.
[2021-02-18] MEDS: LACTULOSE ENEMA COMPOUND PR SCH ×2 (16:03→23:29)
[2021-02-18] MEDS: METOPROLOL TARTRATE 1 MG/ML VIAL IV SCH ×2 (17:45→23:30)
[2021-02-18] MEDS: SODIUM CHLORIDE 0.45 % 1,000 ML IV SCH (18:11)
[2021-02-18 18:48] LABS: Hematocrit (blood only) 27.9 % (42-52); Hemoglobin 9.4 g/dL (14.0-18.0); Mean Corpuscular Hemoglobin 30.1 pg (25-34); Mean Corpuscular Hgb Conc 33.7 g/dL (32-36); Mean Corpuscular Volume 89.4 fL (80-100); RDW Standard Deviation 62.2 fL (36.4-46.3); Red Blood Count 3.12 M/uL (4.7-6.1); White Blood Count 10.77 K/uL (4.8-10.8)
[2021-02-18 19:06] LABS: Albumin Level 2.8 gm/dl (3.4-5.0); BUN Creatinine Ratio 11.8 (10-20); Calcium 8.3 mg/dl (8.5-10.1); Creatinine Clr Calc Pharmacy 36.8 ml/min; Est GFR (African American) 36.9; Est GFR (Non-African American) 31.9; Potassium 3.5 mmol/L (3.5-5.1)
[2021-02-18 19:09] LABS: Albumin Globulin Ratio 0.7 (0.9-2); Bilirubin,Total 2.4 mg/dl (0.2-1); Globulin 4.2 gm/dl (2.5-4.0)
[2021-02-18 19:19] LABS: Mean Platelet Volume 10.3 fL (7.4-10.4); Platelet Count 81 K/uL (130-400); Platelet Estimate Decreased (Normal)
[2021-02-19] MEDS: METOPROLOL TARTRATE 1 MG/ML VIAL IV SCH ×2 (05:46→12:58)
[2021-02-19] MEDS: SODIUM CHLORIDE 0.45 % 1,000 ML IV SCH (05:46)
[2021-02-19] MEDS: PIPERACILLIN/TAZOBACTAM 3.375 GM in DEXTROSE 5% 100 ML IV SCH ×3 (05:46→22:02)
[2021-02-19] MEDS: LACTULOSE ENEMA COMPOUND PR SCH ×2 (06:54→14:12)
[2021-02-19] MEDS: LACTULOSE 200 GM, WATER, STERILE IRRIG 700 ML, BARCODE IDENTIFIER 1 EA PR SCH ×2 (06:54→14:12)
[2021-02-19] MEDS: FERROUS SULFATE 325 MG TAB PO SCH (07:17)
[2021-02-19] MEDS: DOCUSATE SODIUM 100 MG CAP PO SCH ×2 (07:17→22:08)
[2021-02-19] MEDS: TAMSULOSIN HCL 0.4 MG CAP PO SCH (07:17)
[2021-02-19 07:18] LABS: Creatinine Clr Calc Pharmacy 40.3 ml/min; Est GFR (African American) 41.3; Est GFR (Non-African American) 35.6
[2021-02-19] MEDS: CEROVITE ADV FORMULA TAB PO SCH (07:18)
[2021-02-19] MEDS: ATORVASTATIN 20 MG TAB PO SCH (07:18)
[2021-02-19] MEDS: FINASTERIDE 5 MG TAB PO SCH (07:18)
[2021-02-19] MEDS: FOLIC ACID 1 MG TAB PO SCH (07:18)
[2021-02-19] MEDS: FLUTICASONE/VILANTEROL 100/25MCG 14 PUFFS/INHALER INH SCH (07:23)
[2021-02-19] MEDS: UMECLIDINIUM BROMIDE 62.5MCG/BLISTER 7 PUFFS/INHALER INH SCH (07:23)
[2021-02-19] MEDS: metroNIDAZOLE 500 MG/100 ML BAG IV SCH (07:23)
[2021-02-19 08:12] LABS: BUN Creatinine Ratio 11.8 (10-20); Calcium 8.7 mg/dl (8.5-10.1); Est GFR (African American) 42.1; Est GFR (Non-African American) 36.3; Potassium 3.3 mmol/L (3.5-5.1)
--- NOTE | 2021-02-19 09:05 | Gastroenterology Progress Note ---
Date of Service February 19, 2021 Assessment & Plan (1) Altered mental status: (2) Abdominal ascites: (3) Hepatic encephalopathy: Altered mental status continues due to hepatic encephalopathy. Fever with elevated white blood cell count. Blood culture growth has been negative to date. Ammonia level is 39 this morning, down from 46 yesterday. Continue lactulose enemas. Scheduled for paracentesis today. GI service will continue to monitor. Please refer to supervising physician addendum for further recommendations. Admission and Anticipated Discharge Date Admission Date: February 17, 2021 Subjective The patient is sleeping upon entry to room. Examined at bedside. Nonverbal and does not follow commands. No improvement in mental status. Abdomen is relatively soft to palpation with bowel sounds noted. Diarrhea is documented by nursing with lactulose enemas. Review of Systems Review of Systems: Unobtainable due to cognitive status Physical Exam Constitutional: no acute distress Neck: normal visual inspection Respiratory: no respiratory distress and no labored breathing Gastrointestinal (Abdomen): positive bowel sounds, abdomen soft and nontender with exam Results & Data ([facility]) Vital Signs (Past 12 Hours) Vital Signs Temp Pulse Pulse Resp BP BP BP 02/19/21 08:09 36.4 C L 76 18 152/84 H 02/19/21 07:01 36.9 C 67 18 167/88 H 02/19/21 05:46 85 166/82 H 02/19/21 03:36 36.4 C L 68 24 161/78 H 02/19/21 00:00 69 02/18/21 23:30 71 02/18/21 23:14 36.5 C 71 24 153/81 H Pulse Ox 02/19/21 08:09 97 02/19/21 07:01 98 02/19/21 05:46 02/19/21 03:36 97 02/19/21 00:00 02/18/21 23:30 02/18/21 23:14 96 Laboratory Results - last 24 hr 02/18/21 02/18/21 02/18/21 18:38 18:38 18:38 WBC 10.77 RBC 3.12 L Hgb 9.4 L Hct 27.9 L MCV 89.4 MCH 30.1 MCHC 33.7 RDW Std Deviation 62.2 H RDW Coeff of Anderson 19.0 H Plt Count 81 L MPV 10.3 Platelet Estimate Decreased L Sodium 148 H Potassium 3.5 Chloride 118 H Carbon Dioxide 19 L Anion Gap 11.0 BUN 24 H Creatinine 2.05 H Est Cr Clr Drug Dosing 36.8 Est GFR ( Amer) 36.9 Est GFR (Non-Af Amer) 31.9 BUN/Creatinine Ratio 11.8 Glucose 131 H Calcium 8.3 L Total Bilirubin 2.4 H AST 49 H ALT 26 Alkaline Phosphatase 102 Ammonia 46.1 H Total Protein 7.0 Albumin 2.8 L Globulin 4.2 H Albumin/Globulin Ratio 0.7 L 02/19/21 02/19/21 02/19/21 05:59 07:36 07:36 WBC RBC Hgb Hct MCV MCH MCHC RDW Std Deviation RDW Coeff of Anderson Plt Count MPV Platelet Estimate Sodium 146 H Potassium 3.3 L Chloride 118 H Carbon Dioxide 19 L Anion Gap 9.0 BUN 22 H Creatinine 1.87 H 1.84 H Est Cr Clr Drug Dosing 40.3 41.0 Est GFR ( Amer) 41.3 42.1 Est GFR (Non-Af Amer) 35.6 36.3 BUN/Creatinine Ratio 11.8 Glucose 136 H Calcium 8.7 Total Bilirubin AST ALT Alkaline Phosphatase Ammonia 39.0 H Total Protein Albumin Globulin Albumin/Globulin Ratio (1) Altered mental status Altered mental status type: unspecified Qualified Code(s): R41.82 - Altered mental status, unspecified (2) Abdominal ascites Ascites type: other type Qualified Code(s): R18.8 - Other ascites
--- NOTE | 2021-02-19 09:45 | Ultrasound Report ---
PARACENTESIS UNDER ULTRASOUND GUIDANCE CLINICAL HISTORY: Abdominal ascites COMPARISON STUDY: No previous studies for comparison. FINDINGS: The risks, benefits, and alternatives to the procedure were discussed with the patient. [facility]. Following real-time ultrasound localization, the skin was prepped and draped. Following local anesthesia with Xylocaine, the sheath paracentesis needle was inserted a nd approximately 1.7 liters of straw-colored fluid was removed by vacuum suction. A left lower quadra nt approach was utilized. The liver has a cirrhotic morphology. The patient tolerated the procedure well and left the department in satisfactory condition. IMPRESSION: Successful ultrasound-guided paracentesis with removal of approximately 1.7 liters of asc itic fluid. ACT 112: Negative or not required by law. Electronically signed by: Lb Ellis M.D. 02/19/2021 9:43 AM
[2021-02-19 10:38] LABS: Appearance Peritoneal Fluid CLEAR; Basophils, Fluid 0 %; Color Peritoneal Fluid YELLOW; Eosinophils, Fluid 0 %; Lymphocytes, Fluid 60 %; Mono,Macrophage,Mesothelial 37 %; Neutrophils, Fluid 3 %; RBC Peritoneal Fluid (A) < 3000 /uL; WBC Peritoneal Fluid (A) 124 /ul (0-300)
[2021-02-19] MEDS ORDERED: POTASSIUM CHLORIDE CRTAB 20 MEQ TABCR PO STA (12:58)
[2021-02-19] MEDS: METOPROLOL TARTRATE 25 MG TAB PO SCH ×2 (13:02→22:08)
--- NOTE | 2021-02-19 14:01 | Progress Notes ---
DATE: 02/19/2021 Progress note with Rae Carney: The patient underwent a paracentesis today, which removed 1.7 liters of clear yellow fluid, total white count was 124 with a very low percentage of neutrophils at 3%, suggesting a noninfected transudate. Peritoneal glucose was 136. The Gram stain smear showed no organisms, but there were several white cells on the Gram stain. Culture is pending. His mental status has not improved despite his ammonia level dropping to 36 today with lactulose enemas. IMPRESSION: The patient has a persistent hepatic encephalopathy. For now, we will continue antibiotics and await final culture results of blood and ascites, and continue lactulose enemas. If he is able to take p.o. at some point, we will add Xifaxan 550 mg b.i.d.
[2021-02-19] MEDS: FUROSEMIDE 20 MG TAB PO SCH (17:23)
[2021-02-19] MEDS: LACTULOSE SYRUP 20 GM/30 ML UDC PO SCH ×2 (17:24→22:07)
--- NOTE | 2021-02-19 17:49 | Hospitalist Progress Note ---
Date of Service February 19, 2021 Assessment & Plan (1) Hepatic encephalopathy: Suspect this is the primary cause of his reduced responsiveness. He was completely unresponsive and 02/18 and his ammonia level was 161 CT the head negative for acute On 02/19 is much improved and awake and eating, still confused but answers some questions He was treated with lactulose enema every 8 hours and now improved, ammonia level down to 39 DC lactulose enemas and start lactulose 20 g p.o. 3 times daily Start rifaximin 550 mg p.o. twice daily Continue supportive care (2) Anemia: Normocytic. Hemoglobin stable at 9.4 Notable recent history of life-threatening GI bleed on last admission in 12/2020 and bright red blood noted in ER this admission. None since then Follow CBC (3) Abdominal ascites: Do not suspect SBP based on paracentesis performed on 02/19 which removed 1.7 L of fluid Did have fever, is somewhat tender on examination but softer than previous Restart home Lasix and spironolactone Follow ascites fluid culture (4) Liver cirrhosis: Secondary to hepatitis C, posttreatment but unknown details regarding this With portal hypertension, splenomegaly, esophageal varices Restart home Lasix, Aldactone Adding rifaximin and lactulose as above Started [id number] from IV to p.o. metoprolol 25 mg p.o. twice daily (5) Esophageal varices: As noted on previous EGD No bleeding at this time (6) Colitis: Noted to have nonspecific colitis on CT abdomen/pelvis, did have a fever but this may have been related to an aspiration event on 02/18? No further fever, remains on IV Zosyn and Flagyl discontinued (7) GI bleed: As above seems to have resolved Hemoglobin stable (8) Fever: Had a fever on 02/18 which is now resolved Continue IV Zosyn which is empiric for colitis and SBP which is now been ruled out May be due to colitis versus aspiration? Chest x-ray is negative for acute issues May be related to atelectasis as he was essentially comatose There is no evidence of DVT on examination No urinalysis has been done-we will check this now although he has been on antibiotics (9) Thrombocytopenia: Platelets fairly stable around his baseline in the 80s Follow CBC This is secondary to cirrhosis and portal hypertension (10) Hypokalemia: Potassium mildly low today at 3.3 Replace with oral potassium chloride Follow BMP and magnesium in the morning (11) Hypernatremia: Sodium mildly elevated at 146 Secondary to poor p.o. intake Now eating and drinking, okay to restart spironolactone and Lasix Follow BMP in the morning (12) CKD (chronic kidney disease) stage 3, GFR 30-59 ml/min: Creatinine is around baseline at 1.8, was higher on admission and improved with IV normal saline -Avoid nephrotoxins -renally dose meds when appropriate -follow BMP (13) Metabolic acidosis: Stable at 19 Likely secondary to renal failure and perhaps loose stools from GI losses Follow BMP Consider starting sodium bicarbonate tablets (14) BPH (benign prostatic hyperplasia): Rausch catheter was placed due to unresponsive state. Restart home tamsulosin now that he is taking p.o. Remove Rausch catheter likely tomorrow (15) CAD (coronary artery disease): Prior history of this s/p LAD PCI (multiple) Non on antiplatelet therapy due to recent life-threatening bleed. No acute issues here Started metoprolol Continue atorvastatin 20mg PO daily (16) COPD (chronic obstructive pulmonary disease): No acute exacerbation suspected Continue usual maintenance inhalers when able (17) HTN (hypertension): Blood pressures are stable to mildly elevated Converting from IV Lopressor to p.o. metoprolol Restarting home spironolactone and Lasix (18) DVT prophylaxis: SCDs No chemical prophylaxis due to prior life threatening bleed Disposition-okay to downgrade from PCU to medical/surgical floor DNR/DNI Care discussed with his sister on the phone Admission and Anticipated Discharge Date Admission Date: February 17, 2021 Results & Data Results & Data ([facility]) Vital Signs (Past 12 Hours) Vital Signs Temp Pulse Pulse Resp BP Pulse Ox 02/19/21 15:17 36.6 C 69 18 148/80 H 99 02/19/21 12:58 78 02/19/21 11:06 36.8 C 79 20 123/69 02/19/21 10:26 36.4 C L 78 18 123/68 95 02/19/21 10:11 36.3 C L 68 18 149/82 H 97 02/19/21 08:09 36.4 C L 76 18 152/84 H 97 02/19/21 07:01 36.9 C 67 18 167/88 H 98 PG Care Time/CCT Total # of Minutes Spent Total Time Spent with Patient: Total time spent is greater than 50% in coordination of care (as documented) at patient's floor/unit and/or counseling patient: Coding Level of Care Code 50275 Subseq Hosp Care Lvl 3 Diagnoses Hepatic encephalopathy K72.90 Anemia D64.9 Anemia type: unspecified type Abdominal ascites R18.8 Ascites type: other type Liver cirrhosis K74.60; R18.8 Ascites presence: with ascites Hepatic cirrhosis type: unspecified hepatic cirrhosis Esophageal varices I85.00 Esophageal varices bleeding: without bleeding Esophageal varices type: unspecified type Colitis K52.9 GI bleed K92.2 Fever R50.9 Thrombocytopenia D69.6 Hypokalemia E87.6 Hypernatremia E87.0 CKD (chronic kidney disease) stage 3, GFR 30-59 ml/min N18.30 Metabolic acidosis E87.2 BPH (benign prostatic hyperplasia) N40.0 CAD (coronary artery disease) I25.10 COPD (chronic obstructive pulmonary disease) J44.9 HTN (hypertension) I10 Hypertension type: unspecified DVT prophylaxis Z29.9 (1) Abdominal ascites Ascites type: other type Qualified Code(s): R18.8 - Other ascites (2) Anemia Anemia type: unspecified type Qualified Code(s): D64.9 - Anemia, unspecified (3) Esophageal varices Esophageal varices bleeding: without bleeding Esophageal varices type: unspecified type Qualified Code(s): I85.00 - Esophageal varices without bleeding (4) Liver cirrhosis Ascites presence: with ascites Hepatic cirrhosis type: unspecified hepatic cirrhosis Qualified Code(s): K74.60 - Unspecified cirrhosis of liver; R18.8 - Other ascites (5) HTN (hypertension) Hypertension type: unspecified Qualified Code(s): I10 - Essential (primary) hypertension
[2021-02-19] MEDS: rifAXIMin 550 MG TABLET PO SCH (22:06)
[2021-02-20 00:18] LABS: Appearance Urine Clear (Clear); Bacteria Urine Automated Negative (Negative); Bilirubin Urine Negative (Negative); Blood Urine 2+ (Negative); Color Urine Yellow; Epithelial Cell Urine Auto >30 /lpf (0-5); Glucose Urine UA Negative (Negative); Ketones Urine Negative (Negative); Leukocyte Esterase Urine 1+ (Negative); Nitrite Urine Negative (Negative); Protein Urine 2+ (Negative); Specific Gravity Urine 1.021 (1.000-1.030); Urobilinogen Urine Negative (Negative); pH Urine 5.5 (4.5-7.5)
[2021-02-20] MEDS: PIPERACILLIN/TAZOBACTAM 3.375 GM in DEXTROSE 5% 100 ML IV SCH (05:48)
[2021-02-20 06:32] LABS: Hematocrit (blood only) 27.6 % (42-52); Hemoglobin 9.4 g/dL (14.0-18.0); Mean Corpuscular Hemoglobin 30.3 pg (25-34); Mean Corpuscular Hgb Conc 34.1 g/dL (32-36); RDW Coefficient of Variation 18.5 % (11.5-14.5); White Blood Count 5.89 K/uL (4.8-10.8)
[2021-02-20 06:40] LABS: INR 1.4 (0.9-1.1); Prothrombin Time 13.5 Seconds (9.0-12.0)
[2021-02-20 06:41] LABS: Mean Platelet Volume 11.3 fL (7.4-10.4); Platelet Count 86 K/uL (130-400)
[2021-02-20 06:51] LABS: Basophils # (auto) 0.03 K/uL (0-0.2); Basophils % (auto) 0.5 %; Eosinophils # (auto) 0.66 K/uL (0-0.5); Eosinophils % (auto) 11.2 %; Immature Granulocytes # (auto) 0.02 K/uL (0.00-0.02); Immature Granulocytes % (auto) 0.3 %; Lymphocytes # (auto) 0.66 K/uL (1.2-3.4); Lymphocytes % (auto) 11.2 %; Monocytes # (auto) 0.62 K/uL (0.11-0.59); Monocytes % (auto) 10.5 %; Neutrophils % (auto) 66.3 %
[2021-02-20 07:00] LABS: Albumin Level 2.8 gm/dl (3.4-5.0); BUN Creatinine Ratio 11.4 (10-20); Calcium 8.6 mg/dl (8.5-10.1); Creatinine Clr Calc Pharmacy 38.9 ml/min; Est GFR (African American) 39.5; Est GFR (Non-African American) 34.1; Magnesium 1.9 mg/dl (1.8-2.4); Potassium 3.3 mmol/L (3.5-5.1)
[2021-02-20 07:03] LABS: Albumin Globulin Ratio 0.7 (0.9-2); Bilirubin,Total 2.1 mg/dl (0.2-1); Globulin 4.2 gm/dl (2.5-4.0)
--- NOTE | 2021-02-20 08:32 | Gastroenterology Progress Note ---
Date of Service February 20, 2021 Assessment & Plan (1) Altered mental status: (2) Abdominal ascites: (3) Hepatic encephalopathy: Altered mental status due to hepatic encephalopathy is improved. He continues to be alert to person only. Paracentesis yesterday with 1.7 L of fluid removed. Paracentesis culture results are pending. Ammonia level not obtained today. Results were down to 39 yesterday morning. Xifaxan 550 mg p.o. twice daily was added yesterday to patient regimen. GI service will continue to monitor. Please refer to supervising physician addendum for further recommendations. Admission and Anticipated Discharge Date Admission Date: February 17, 2021 Subjective The patient is awake sitting upright in bed and alert to person. He has a breakfast tray in front of him and attempting to open a milk carton. When asked if he would like assistance opening the carton he did respond with yes. Denies abdominal pain. No other appropriate answers to questions were provided. Review of Systems Review of Systems: Unobtainable due to cognitive status Physical Exam Constitutional: no acute distress Neck: normal visual inspection Respiratory: no respiratory distress and no labored breathing Gastrointestinal (Abdomen): Inspection/Auscultation: abdomen normal to in spection and normal bowel sounds Percussion/Palpation: abdomen soft; abdomen nontender Psychiatric: Orientation: alert and oriented to person Results & Data ([facility]) Vital Signs (Past 12 Hours) Vital Signs Temp Pulse Resp BP BP Pulse Ox 02/20/21 07:07 36.9 C 70 20 158/81 H 96 02/19/21 22:49 36.7 C 73 18 166/92 H 98 Laboratory Results - last 24 hr 02/19/21 02/19/21 02/19/21 23:55 Unknown Unknown WBC RBC Hgb Hct MCV MCH MCHC RDW Std Deviation RDW Coeff of Anderson Plt Count MPV Immature Gran % (Auto) Neut % (Auto) Lymph % (Auto) [place] % (Auto) Eos % (Auto) Baso % (Auto) Neut # (Auto) Lymph # (Auto) [place] # (Auto) Eos # (Auto) Baso # (Auto) Immature Gran # (Auto) PT INR Sodium Potassium Chloride Carbon Dioxide Anion Gap BUN Creatinine Est Cr Clr Drug Dosing Est GFR ( Amer) Est GFR (Non-Af Amer) BUN/Creatinine Ratio Glucose Calcium Magnesium Total Bilirubin AST ALT Alkaline Phosphatase Total Protein Albumin Globulin Albumin/Globulin Ratio Urine Color Yellow Urine Appearance Clear Urine pH 5.5 Ur Specific [place] 1.021 Urine Protein 2+ H Urine Glucose (UA) Negative Urine Ketones Negative Urine Blood 2+ H Urine Nitrite Negative Urine Bilirubin Negative Urine Urobilinogen Negative Ur Leukocyte Esterase 1+ H Urine WBC (Auto) 10-30 H Urine RBC (Auto) 10-30 H U Hyaline Cast (Auto) 5-10 H U Epithel Cells (Auto) >30 H Urine Bacteria (Auto) Negative Ur Renal Epithelial Cell Not Reportable Granular Casts 1-5 H Fluid Neutrophils % 3 Fluid Lymphocytes % 60 Fluid Eosinophils % 0 Fluid Basophils % 0 Fluid [place] % 37 Fluid Comment Peritoneal Color YELLOW Peritoneal Appearance CLEAR Peritoneal WBC 124 Peritoneal RBC < 3000 Peritoneal Glucose 136 02/20/21 02/20/21 02/20/21 06:08 06:08 06:08 WBC 5.89 RBC 3.10 L Hgb 9.4 L Hct 27.6 L MCV 89.0 MCH 30.3 MCHC 34.1 RDW Std Deviation 60.0 H RDW Coeff of Anderson 18.5 H Plt Count 86 L MPV 11.3 H Immature Gran % (Auto) 0.3 Neut % (Auto) 66.3 Lymph % (Auto) 11.2 [place] % (Auto) 10.5 Eos % (Auto) 11.2 Baso % (Auto) 0.5 Neut # (Auto) 3.90 Lymph # (Auto) 0.66 L [place] # (Auto) 0.62 H Eos # (Auto) 0.66 H Baso # (Auto) 0.03 Immature Gran # (Auto) 0.02 PT 13.5 H INR 1.4 H Sodium 147 H Potassium 3.3 L Chloride 123 H Carbon Dioxide 19 L Anion Gap 6.0 BUN 22 H Creatinine 1.94 H Est Cr Clr Drug Dosing 38.9 Est GFR ( Amer) 39.5 Est GFR (Non-Af Amer) 34.1 BUN/Creatinine Ratio 11.4 Glucose 139 H Calcium 8.6 Magnesium 1.9 Total Bilirubin 2.1 H AST 39 H ALT 23 Alkaline Phosphatase 98 Total Protein 7.0 Albumin 2.8 L Globulin 4.2 H Albumin/Globulin Ratio 0.7 L Urine Color Urine Appearance Urine pH Ur Specific [place] Urine Protein Urine Glucose (UA) Urine Ketones Urine Blood Urine Nitrite Urine Bilirubin Urine Urobilinogen Ur Leukocyte Esterase Urine WBC (Auto) Urine RBC (Auto) U Hyaline Cast (Auto) U Epithel Cells (Auto) Urine Bacteria (Auto) Ur Renal Epithelial Cell Granular Casts Fluid Neutrophils % Fluid Lymphocytes % Fluid Eosinophils % Fluid Basophils % Fluid [place] % Fluid Comment Peritoneal Color Peritoneal Appearance Peritoneal WBC Peritoneal RBC Peritoneal Glucose (1) Altered mental status Altered mental status type: unspecified Qualified Code(s): R41.82 - Altered mental status, unspecified (2) Abdominal ascites Ascites type: other type Qualified Code(s): R18.8 - Other ascites
[2021-02-20] MEDS: LACTULOSE SYRUP 20 GM/30 ML UDC PO SCH ×3 (08:42→21:25)
[2021-02-20] MEDS: MAGNESIUM OXIDE 400 MG TAB PO SCH (08:42)
[2021-02-20] MEDS: TAMSULOSIN HCL 0.4 MG CAP PO SCH (08:43)
[2021-02-20] MEDS: ATORVASTATIN 20 MG TAB PO SCH (08:43)
[2021-02-20] MEDS: FOLIC ACID 1 MG TAB PO SCH (08:43)
[2021-02-20] MEDS: CEROVITE ADV FORMULA TAB PO SCH (08:43)
[2021-02-20] MEDS: rifAXIMin 550 MG TABLET PO SCH ×2 (08:43→21:24)
[2021-02-20] MEDS: FINASTERIDE 5 MG TAB PO SCH (08:44)
[2021-02-20] MEDS: FERROUS SULFATE 325 MG TAB PO SCH (08:44)
[2021-02-20] MEDS: METOPROLOL TARTRATE 25 MG TAB PO SCH ×2 (08:45→21:24)
[2021-02-20] MEDS: FLUTICASONE/VILANTEROL 100/25MCG 14 PUFFS/INHALER INH SCH (08:46)
[2021-02-20] MEDS: UMECLIDINIUM BROMIDE 62.5MCG/BLISTER 7 PUFFS/INHALER INH SCH (08:46)
[2021-02-20] MEDS: CYANOCOBALAMIN 500 MCG TABLET (VITAMIN B-12) PO SCH (08:47)
[2021-02-20] MEDS: DOCUSATE SODIUM 100 MG CAP PO SCH ×2 (08:50→21:25)
[2021-02-20] MEDS ORDERED: SPIRONOLACTONE 100 MG TAB PO SCH (09:00)
[2021-02-20] MEDS: POTASSIUM CHLORIDE / WTR 10 MEQ/100 ML PLCT IV SCH ×2 (09:19→10:32)
[2021-02-20] MEDS: SODIUM BICARBONATE 8.4% 75 MEQ in DEXTROSE 5% 1,000 ML IV SCH ×2 (09:19→21:25)
[2021-02-20] MEDS ORDERED: HYDROmorphone INJ 0.5 MG/0.5 ML SYR IV PRN (09:25)
--- NOTE | 2021-02-20 13:30 | Progress Notes ---
DATE: 02/20/2021 ADDENDUM Addendum to progress note done by Rae Carney. The patient is actually awake today and sitting up in bed, eating some of his lunch with some assistance. The patient knows that he is in the hospital, but he cannot tell me the name of the hospital or he cannot tell me his name and appears somewhat little bit confused, but he is awake. He is not febrile. His white count is normal and hemoglobin stable at 9.4. His peritoneal cultures showed some white cells, but no bacteria. There were not enough white cells to make it an infected fluid and it appears to be transudative as a result of his ascites. Urine culture is pending. Blood cultures are no growth so far. At this point, I would continue the lactulose, but change it to oral and also began the Xifaxan 550 twice a day which was started yesterday. We will follow the patient.
--- NOTE | 2021-02-20 14:36 | Hospitalist Progress Note ---
Date of Service February 20, 2021 Assessment & Plan (1) Hepatic encephalopathy: Suspect this is the primary cause of his reduced responsiveness. He was completely unresponsive and 02/18 and his ammonia level was 161 CT the head negative for acute On 02/19 is much improved and awake and eating, still confused but answers some questions-similar on 02/20 He was treated with lactulose enema every 8 hours and now improved, ammonia level down to 39 DCd lactulose enemas and started lactulose 20 g p.o. 3 times daily, aim for 3 BMs daily Started rifaximin 550 mg p.o. twice daily Continue supportive care -asked RN to get OOB to chair for all meals (2) Anemia: Normocytic. Hemoglobin stable at 9.4 Notable recent history of life-threatening GI bleed on last admission in 12/2020 and bright red blood noted in ER this admission. None since then Follow CBC (3) Abdominal ascites: Do not suspect SBP based on paracentesis performed on 02/19 which removed 1.7 L of fluid Did have fever, is somewhat tender on examination but softer than previous Restarted home Lasix and spironolactone but now more hypernatremic--HOLD diuretics Follow ascites fluid culture-no growth -IV dilaudid low dose prn (4) Liver cirrhosis: Secondary to hepatitis C, posttreatment but unknown details regarding this With portal hypertension, splenomegaly, esophageal varices hold home Lasix, Aldactone for hypernatremia for now Added rifaximin and lactulose as above Started [id number] from IV to p.o. metoprolol 25 mg p.o. twice daily (5) Esophageal varices: As noted on previous EGD No bleeding at this time (6) Colitis: Noted to have nonspecific colitis on CT abdomen/pelvis, did have a fever but this may have been related to an aspiration event on 02/18? No further fever, remains on IV Zosyn and Flagyl discontinued (7) GI bleed: As above seems to have resolved Hemoglobin stable (8) Fever: Had a fever on 02/18 which is now resolved Continue IV Zosyn which is empiric for colitis and SBP which is now been ruled o ut May be due to colitis versus aspiration? Chest x-ray is negative for acute issues UA no evidence of infection May be related to atelectasis as he was essentially comatose There is no evidence of DVT on examination -dc Rausch -continue abx for now but can likely dc tomorrow if no further fever (9) Thrombocytopenia: Platelets fairly stable around his baseline in the 80s Follow CBC This is secondary to cirrhosis and portal hypertension (10) Hypokalemia: Potassium mildly low today at 3.3 Replace with IV potassium chloride Follow BMP and magnesium in the morning (11) Hypernatremia: Sodium mildly elevated and worse today at 147 Secondary to poor p.o. intake hold spironolactone and Lasix Follow BMP in the morning -start D5W with NaHCO3 at 80mL/hr (12) CKD (chronic kidney disease) stage 3, GFR 30-59 ml/min: Creatinine is around baseline at 1.9, was higher on admission and improved with IV normal saline -Avoid nephrotoxins -renally dose meds when appropriate -follow BMP (13) Metabolic acidosis: Stable at 19 Likely secondary to renal failure and perhaps loose stools from GI losses Follow BMP added D5W with sodium bicarbonate (14) BPH (benign prostatic hyperplasia): Rausch catheter was placed due to unresponsive state. -continue tamsulosin now that he is taking p.o. Remove Rausch catheter today (15) CAD (coronary artery disease): Prior history of this s/p LAD PCI (multiple) Non on antiplatelet therapy due to recent life-threatening bleed. No acute issues here Started metoprolol Continue atorvastatin 20mg PO daily (16) COPD (chronic obstructive pulmonary disease): No acute exacerbation suspected Continue usual maintenance inhalers when able (17) HTN (hypertension): Blood pressures are stable to mildly elevated continue p.o. metoprolol hold home spironolactone and Lasix (18) DVT prophylaxis: SCDs No chemical prophylaxis due to prior life threatening bleed Disposition-continued stay on medical/surgical floor DNR/DNI PT/OT ordered, may need rehab due to gen weakness Admission and Anticipated Discharge Date Admission Date: February 17, 2021 Subjective Pt sleeping with his lunch in front of him partially eaten. He wakes up and is slow to respond but does answer some questions, is oriented to person and hosp ital and . Denies pain but was having pain in abdomen earlier and received IV dilaudid. Has not been OOB yet this admission. Review of Systems Review of Systems: All systems reviewed & are unremarkable except as noted in HPI & below Physical Exam Constitutional: WD/WN, vitals as above Eyes: + anicteric sclerae Neck: trachea midline, no thyromegaly Respiratory: normal respiratory effort, lungs clear to auscultation Cardiovascular: RRR, no murmur, no edema Chest (Breasts): Chest: normal inspection of chest Gastrointestinal (Abdomen): normal bowel sounds, soft, nontender, no hepatosplenomegaly Musculoskeletal: Extremities: extremities normal to inspection; no cyanosis and no clubbing Skin: no rashes, warm and dry Neurologic: moves all extremities, awake and + confused; no focal motor deficits Psychiatric: Orientation: alert, oriented to person, oriented to place ("hospital") and cooperative Affect: + flat affect Cognition: + recent memory not intact Lymphatic: no lymphedema Results & Data Results & Data ([facility]) Vital Signs (Past 12 Hours) Vital Signs Temp Pulse Resp BP Pulse Ox 02/20/21 11:26 36.5 C 55 L 18 134/77 98 02/20/21 08:42 71 145/80 H 02/20/21 07:07 36.9 C 70 20 158/81 H 96 Laboratory Results 02/20/21 02/20/21 02/20/21 Range/Units 06:08 06:08 06:08 WBC 5.89 (4.8-10.8) K/uL RBC 3.10 L (4.7-6.1) M/uL Hgb 9.4 L (14.0-18.0) g/dL Hct 27.6 L (42-52) % MCV 89.0 (80-100) fL MCH 30.3 (25-34) pg MCHC 34.1 (32-36) g/dL RDW Std Deviation 60.0 H (36.4-46.3) fL RDW Coeff of Anderson 18.5 H (11.5-14.5) % Plt Count 86 L (130-400) K/uL MPV 11.3 H (7.4-10.4) fL Immature Gran % (Auto) 0.3 % Neut % (Auto) 66.3 % Lymph % (Auto) 11.2 % [place] % (Auto) 10.5 % Eos % (Auto) 11.2 % Baso % (Auto) 0.5 % Neut # (Auto) 3.90 (1.4-6.5) K/uL Lymph # (Auto) 0.66 L (1.2-3.4) K/uL [place] # (Auto) 0.62 H (0.11-0.59) K/uL Eos # (Auto) 0.66 H (0-0.5) K/uL Baso # (Auto) 0.03 (0-0.2) K/uL Immature Gran # (Auto) 0.02 (0.00-0.02) K/uL PT 13.5 H (9.0-12.0) Seconds INR 1.4 H (0.9-1.1) Sodium 147 H (136-145) mmol/L Potassium 3.3 L (3.5-5.1) mmol/L Chloride 123 H (98-107) mmol/L Carbon Dioxide 19 L (21-32) mmol/L Anion Gap 6.0 (3-11) BUN 22 H (7-18) mg/dl Creatinine 1.94 H (0.6-1.4) mg/dl Est Cr Clr Drug Dosing 38.9 ml/min Est GFR ( Amer) 39.5 Est GFR (Non-Af Amer) 34.1 BUN/Creatinine Ratio 11.4 (10-20) Glucose 139 H (70-99) mg/dl Calcium 8.6 (8.5-10.1) mg/dl Magnesium 1.9 (1.8-2.4) mg/dl Total Bilirubin 2.1 H (0.2-1) mg/dl AST 39 H (15-37) U/L ALT 23 (12-78) U/L Alkaline Phosphatase 98 (45-117) U/L Total Protein 7.0 (6.4-8.2) gm/dl Albumin 2.8 L (3.4-5.0) gm/dl Globulin 4.2 H (2.5-4.0) gm/dl Albumin/Globulin Ratio 0.7 L (0.9-2) Urine Color Urine Appearance (Clear) Urine pH (4.5-7.5) Ur Specific [place] (1.000-1.030) Urine Protein (Negative) Urine Glucose (UA) (Negative) Urine Ketones (Negative) Urine Blood (Negative) Urine Nitrite (Negative) Urine Bilirubin (Negative) Urine Urobilinogen (Negative) Ur Leukocyte Esterase (Negative) Urine WBC (Auto) (0-5) /hpf Urine RBC (Auto) (0-4) /hpf U Hyaline Cast (Auto) (0-5) /lpf U Epithel Cells (Auto) (0-5) /lpf Urine Bacteria (Auto) (Negative) Ur Renal Epithelial Cell Granular Casts (0) /lpf 02/19/21 Range/Units 23:55 WBC (4.8-10.8) K/uL RBC (4.7-6.1) M/uL Hgb (14.0-18.0) g/dL Hct (42-52) % MCV (80-100) fL MCH (25-34) pg MCHC (32-36) g/dL RDW Std Deviation (36.4-46.3) fL RDW Coeff of Anderson (11.5-14.5) % Plt Count (130-400) K/uL MPV (7.4-10.4) fL Immature Gran % (Auto) % Neut % (Auto) % Lymph % (Auto) % [place] % (Auto) % Eos % (Auto) % Baso % (Auto) % Neut # (Auto) (1.4-6.5) K/uL Lymph # (Auto) (1.2-3.4) K/uL [place] # (Auto) (0.11-0.59) K/uL Eos # (Auto) (0-0.5) K/uL Baso # (Auto) (0-0.2) K/uL Immature Gran # (Auto) (0.00-0.02) K/uL PT (9.0-12.0) Seconds INR (0.9-1.1) Sodium (136-145) mmol/L Potassium (3.5-5.1) mmol/L Chloride (98-107) mmol/L Carbon Dioxide (21-32) mmol/L Anion Gap (3-11) BUN (7-18) mg/dl Creatinine (0.6-1.4) mg/dl Est Cr Clr Drug Dosing ml/min Est GFR ( Amer) Est GFR (Non-Af Amer) BUN/Creatinine Ratio (10-20) Glucose (70-99) mg/dl Calcium (8.5-10.1) mg/dl Magnesium (1.8-2.4) mg/dl Total Bilirubin (0.2-1) mg/dl AST (15-37) U/L ALT (12-78) U/L Alkaline Phosphatase (45-117) U/L Total Protein (6.4-8.2) gm/dl Albumin (3.4-5.0) gm/dl Globulin (2.5-4.0) gm/dl Albumin/Globulin Ratio (0.9-2) Urine Color Yellow Urine Appearance Clear (Clear) Urine pH 5.5 (4.5-7.5) Ur Specific [place] 1.021 (1.000-1.030) Urine Protein 2+ H (Negative) Urine Glucose (UA) Negative (Negative) Urine Ketones Negative (Negative) Urine Blood 2+ H (Negative) Urine Nitrite Negative (Negative) Urine Bilirubin Negative (Negative) Urine Urobilinogen Negative (Negative) Ur Leukocyte Esterase 1+ H (Negative) Urine WBC (Auto) 10-30 H (0-5) /hpf Urine RBC (Auto) 10-30 H (0-4) /hpf U Hyaline Cast (Auto) 5-10 H (0-5) /lpf U Epithel Cells (Auto) >30 H (0-5) /lpf Urine Bacteria (Auto) Negative (Negative) Ur Renal Epithelial Cell Not Reportable Granular Casts 1-5 H (0) /lpf PG Care Time/CCT Total # of Minutes Spent Total Time Spent with Patient: Total time spent is greater than 50% in coordination of care (as documented) at patient's floor/unit and/or counseling patient: Coding Level of Care Code 61830 Subseq Hosp Care Lvl 3 Diagnoses Hepatic encephalopathy K72.90 Anemia D64.9 Anemia type: unspecified type Abdominal ascites R18.8 Ascites type: other type Liver cirrhosis K74.60; R18.8 Ascites presence: with ascites Hepatic cirrhosis type: unspecified hepatic cirrhosis Esophageal varices I85.00 Esophageal varices bleeding: without bleeding Esophageal varices type: unspecified type Colitis K52.9 GI bleed K92.2 Fever R50.9 Thrombocytopenia D69.6 Hypokalemia E87.6 Hypernatremia E87.0 CKD (chronic kidney disease) stage 3, GFR 30-59 ml/min N18.30 Metabolic acidosis E87.2 BPH (benign prostatic hyperplasia) N40.0 CAD (coronary artery disease) I25.10 COPD (chronic obstructive pulmonary disease) J44.9 HTN (hypertension) I10 Hypertension type: unspecified DVT prophylaxis Z29.9 (1) Abdominal ascites Ascites type: other type Qualified Code(s): R18.8 - Other ascites (2) Anemia Anemia type: unspecified type Qualified Code(s): D64.9 - Anemia, unspecified (3) Esophageal varices Esophageal varices bleeding: without bleeding Esophageal varices type: unspecified type Qualified Code(s): I85.00 - Esophageal varices without bleeding (4) Liver cirrhosis Ascites presence: with ascites Hepatic cirrhosis type: unspecified hepatic cirrhosis Qualified Code(s): K74.60 - Unspecified cirrhosis of liver; R18.8 - Other ascites (5) HTN (hypertension) Hypertension type: unspecified Qualified Code(s): I10 - Essential (primary) hypertension
[2021-02-20] MEDS ORDERED: THIAMINE HCL 200 MG in SODIUM CHLORIDE 0.9% 50 ML IV ONE (15:00)
[2021-02-21 06:43] LABS: Hematocrit (blood only) 27.9 % (42-52); Hemoglobin 9.4 g/dL (14.0-18.0); Mean Corpuscular Hemoglobin 29.8 pg (25-34); Mean Corpuscular Hgb Conc 33.7 g/dL (32-36); Mean Corpuscular Volume 88.6 fL (80-100); RDW Coefficient of Variation 18.4 % (11.5-14.5); RDW Standard Deviation 59.5 fL (36.4-46.3); Red Blood Count 3.15 M/uL (4.7-6.1); White Blood Count 5.22 K/uL (4.8-10.8)
[2021-02-21 06:48] LABS: Mean Platelet Volume 9.5 fL (7.4-10.4); Platelet Count 84 K/uL (130-400)
[2021-02-21 07:19] LABS: Albumin Level 2.6 gm/dl (3.4-5.0); BUN Creatinine Ratio 11.9 (10-20); Bilirubin Direct 0.4 mg/dl (0-0.2); Calcium 8.2 mg/dl (8.5-10.1); Creatinine Clr Calc Pharmacy 47.4 ml/min; Est GFR (African American) 50.2; Est GFR (Non-African American) 43.3; Magnesium 1.9 mg/dl (1.8-2.4); Potassium 3.4 mmol/L (3.5-5.1)
[2021-02-21 07:20] LABS: Basophils # (auto) 0.04 K/uL (0-0.2); Basophils % (auto) 0.8 %; Eosinophils % (auto) 15.3 %; Immature Granulocytes # (auto) 0.01 K/uL (0.00-0.02); Immature Granulocytes % (auto) 0.2 %; Lymphocytes # (auto) 0.73 K/uL (1.2-3.4); Monocytes # (auto) 0.56 K/uL (0.11-0.59); Monocytes % (auto) 10.7 %; Neutrophils # (auto) 3.08 K/uL (1.4-6.5)
[2021-02-21 07:30] LABS: Bilirubin,Total 1.7 mg/dl (0.2-1); Thyroid Stimulating Hormone 3.81 uIu/ml (0.300-4.500); Total Protein 6.7 gm/dl (6.4-8.2)
[2021-02-21] MEDS: UMECLIDINIUM BROMIDE 62.5MCG/BLISTER 7 PUFFS/INHALER INH SCH (08:05)
[2021-02-21] MEDS: ATORVASTATIN 20 MG TAB PO SCH (08:06)
[2021-02-21] MEDS: FERROUS SULFATE 325 MG TAB PO SCH (08:06)
[2021-02-21] MEDS: TAMSULOSIN HCL 0.4 MG CAP PO SCH (08:06)
[2021-02-21] MEDS: FLUTICASONE/VILANTEROL 100/25MCG 14 PUFFS/INHALER INH SCH (08:06)
[2021-02-21] MEDS: CYANOCOBALAMIN 500 MCG TABLET (VITAMIN B-12) PO SCH (08:06)
[2021-02-21] MEDS: FOLIC ACID 1 MG TAB PO SCH (08:06)
[2021-02-21] MEDS: LACTULOSE SYRUP 20 GM/30 ML UDC PO SCH ×3 (08:06→20:39)
[2021-02-21] MEDS: MAGNESIUM OXIDE 400 MG TAB PO SCH (08:06)
[2021-02-21] MEDS: FINASTERIDE 5 MG TAB PO SCH (08:06)
[2021-02-21] MEDS: CEROVITE ADV FORMULA TAB PO SCH (08:06)
[2021-02-21] MEDS: METOPROLOL TARTRATE 25 MG TAB PO SCH ×2 (08:07→20:41)
[2021-02-21] MEDS: rifAXIMin 550 MG TABLET PO SCH ×2 (08:07→20:40)
[2021-02-21] MEDS: THIAMINE HCL 200 MG in SODIUM CHLORIDE 0.9% 50 ML IV SCH (08:14)
[2021-02-21] MEDS: DOCUSATE SODIUM 100 MG CAP PO SCH ×3 (08:14→20:42)
[2021-02-21] MEDS ORDERED: POTASSIUM PHOS 3 MMOL/1 ML INFUSION IV STA (08:45)
--- NOTE | 2021-02-21 08:47 | Gastroenterology Progress Note ---
Date of Service February 21, 2021 Assessment & Plan (1) Hepatic encephalopathy: (2) Altered mental status: Altered mental status due to hepatic encephalopathy has improved. He continues to be alert to person only. Paracentesis Friday with 1.7 L of fluid removed. Peritoneal cultures showed some white cells but no bacteria. Fluid appears transudative as result of ascites. Continue oral lactulose orally and Xifaxan 550 mg p.o. BID. GI service will continue to monitor. Please refer to supervising physician addendum for further recommendations. Admission and Anticipated Discharge Date Admission Date: February 17, 2021 Subjective The patient is awake and alert to person. Sitting upright in bed and eating his breakfast. He is conversant this morning - asking why he is in the hospital and if he can walk to the bathroom. Denies pain or other complaints this morning. Review of Systems Review of Systems: Unobtainable due to cognitive status Physical Exam Constitutional: no acute distress Neck: normal visual inspection Respiratory: no respiratory distress and no labored breathing Gastrointestinal (Abdomen): Inspection/Auscultation: abdomen normal to inspection and normal bowel sounds Percussion/Palpation: abdomen soft; abdomen nontender Psychiatric: Orientation: alert and oriented to person Results & Data ([facility]) Vital Signs (Past 12 Hours) Vital Signs Temp Pulse Resp BP Pulse Ox 02/21/21 07:30 36.9 C 67 18 134/77 96 02/21/21 00:09 36.7 C 59 L 18 127/75 95 Laboratory Results - last 24 hr 02/21/21 02/21/21 02/21/21 06:27 06:27 06:27 WBC 5.22 RBC 3.15 L Hgb 9.4 L Hct 27.9 L MCV 88.6 MCH 29.8 MCHC 33.7 RDW Std Deviation 59.5 H RDW Coeff of Anderson 18.4 H Plt Count 84 L MPV 9.5 Immature Gran % (Auto) 0.2 Neut % (Auto) 59.0 Lymph % (Auto) 14.0 [place] % (Auto) 10.7 Eos % (Auto) 15.3 Baso % (Auto) 0.8 Neut # (Auto) 3.08 Lymph # (Auto) 0.73 L [place] # (Auto) 0.56 Eos # (Auto) 0.80 H Baso # (Auto) 0.04 Immature Gran # (Auto) 0.01 Sodium 142 Potassium 3.4 L Chloride 114 H Carbon Dioxide 21 Anion Gap 7.0 BUN 19 H Creatinine 1.59 H D Est Cr Clr Drug Dosing 47.4 Est GFR ( Amer) 50.2 Est GFR (Non-Af Amer) 43.3 BUN/Creatinine Ratio 11.9 Glucose 142 H Calcium 8.2 L Phosphorus 2.0 L Magnesium 1.9 Total Bilirubin 1.7 H Direct Bilirubin 0.4 H AST 34 ALT 21 Alkaline Phosphatase 91 Ammonia 23.9 Total Protein 6.7 Albumin 2.6 L TSH 3.810 (1) Altered mental status Altered mental status type: unspecified Qualified Code(s): R41.82 - Altered mental status, unspecified
[2021-02-21] MEDS ORDERED: POTASSIUM PHOSPHATE 15 MMOL in SODIUM CHLORIDE 0.9% 250 ML IV ONE (09:00)
[2021-02-21] MEDS: SODIUM BICARBONATE 8.4% 75 MEQ in DEXTROSE 5% 1,000 ML IV SCH (11:13)
--- NOTE | 2021-02-21 12:55 | Hospitalist Progress Note ---
Date of Service February 21, 2021 Assessment & Plan (1) Hepatic encephalopathy: Suspect this is the primary cause of his reduced responsiveness. He was completely unresponsive and 02/18 and his ammonia level was 161 CT the head negative for acute On 02/19 is much improved and awake and eating, still confused but answers some questions-similar on 02/20 On 02/21, he is significantly improved, much more conversant and oriented. Has good recall and can make his own decisions. He was treated with lactulose enema every 8 hours and now improved, ammonia level down to 23 DCd lactulose enemas and started lactulose 20 g p.o. 3 times daily, aim for 3 BMs daily Started rifaximin 550 mg p.o. twice daily Continue supportive care -asked RN to get OOB to chair for all meals (2) Anemia: Normocytic. Hemoglobin stable at 9.4 for several days Notable recent history of life-threatening GI bleed on last admission in 12/2020 and bright red blood noted in ER this admission. None since then Follow CBC periodically (3) Abdominal ascites: Do not suspect SBP based on paracentesis performed on 02/19 which removed 1.7 L of fluid Did have fever, no tenderness on examination Restarted home Lasix and spironolactone but but then became more hypernatremic--continue to HOLD diuretics Follow ascites fluid culture-no growth No further IV pain meds to be given -Discontinue IV Zosyn (4) Liver cirrhosis: Secondary to hepatitis C, posttreatment but unknown details regarding this With portal hypertension, splenomegaly, esophageal varices Continue to hold home Lasix, Aldactone for hypernatremia for now Added rifaximin and lactulose as above Started beta-klaudia- metoprolol 25 mg p.o. twice daily Appreciate GI consultation End-stage, needs palliative care consultation for goals of care discussion as I discussed with him that this will likely continue to deteriorate his condition in the future (5) Esophageal varices: As noted on previous EGD No bleeding at this time (6) Colitis: Noted to have nonspecific colitis on CT abdomen/pelvis, did have a fever but this may have been related to an aspiration event on 02/18? No further fever, remains on IV Zosyn and Flagyl discontinued-we will now discontinue IV Zosyn (7) GI bleed: As above seems to have resolved Hemoglobin stable (8) Fever: Had a fever on 02/18 which is now resolved We will now DC IV Zosyn which was used empiric for colitis and SBP which is now been ruled out May be due to colitis versus aspiration? Chest x-ray is negative for acute issues UA no evidence of infection May be related to atelectasis as he was essentially comatose There is no evidence of DVT on examination -Have since discontinued the Rausch DC antibiotics (9) Thrombocytopenia: Platelets fairly stable around his baseline in the 80s Follow CBC periodically This is secondary to cirrhosis and portal hypertension (10) Hypokalemia: Potassium mildly low again today at 3.4 Replace with IV potassium phosphorus Follow BMP and magnesium in the morning (11) Hypernatremia: Sodium mildly elevated at 147 and now improved with D5W sodium bicarbonate drip down to 142 Secondary to poor p.o. intake Continue to hold spironolactone and Lasix but can likely restart tomorrow Follow BMP in the morning -We will now discontinue D5W with NaHCO3 at 80mL/hr as he is taking more p.o. today (12) CKD (chronic kidney disease) stage 3, GFR 30-59 ml/min: Creatinine is slightly lower than baseline today at 1.59, was higher on admission and improved with IV normal saline -Avoid nephrotoxins -renally dose meds when appropriate -follow BMP (13) Metabolic acidosis: Improved today up to 21 after starting bicarbonate drip Likely secondary to renal failure and perhaps loose stools from GI losses Follow BMP Discontinue IV fluids and start sodium bicarbonate 650 mg p.o. twice daily (14) BPH (benign prostatic hyperplasia): Rausch catheter was placed on admission due to unresponsive state. -continue tamsulosin now that he is taking p.o. Rausch catheter was removed on 02/20 (15) CAD (coronary artery disease): Prior history of this s/p LAD PCI (multiple) Non on antiplatelet therapy due to recent life-threatening bleed. No acute issues here Started metoprolol Continue atorvastatin 20mg PO daily (16) COPD (chronic obstructive pulmonary disease): No acute exacerbation suspected Continue usual maintenance inhalers when able (17) HTN (hypertension): Blood pressures are stable to mildly elevated continue p.o. metoprolol hold home spironolactone and Lasix (18) DVT prophylaxis: SCDs No chemical prophylaxis due to prior life threatening bleed Disposition-continued stay on medical/surgical floor but much improved DNR/DNI PT/OT ordered, may need rehab due to gen weakness-awaiting consultations and recommendations Patient insists he will not go to a correction but may be interested in short- term rehab. He plans on going back [facility] but eventually wants to try to go and stay with family in [place] once he pays off his debt at the [facility]. Palliative care consulted for goals of care discussion Admission and Anticipated Discharge Date Admission Date: February 17, 2021 Subjective Patient significantly improved today, much more conversive and oriented. He denies any abdominal pain. He is eating drinking. He reports he got up with physical therapy today and did have an episode of incontinence to stool over the floor. He insists that he will never go to a correction and that he feels his sister is trying to force him to go there. Review of Systems Review of Systems: All systems reviewed & are unremarkable except as noted in HPI & below Physical Exam Constitutional: WD/WN, vitals as above Eyes: + anicteric sclerae Neck: trachea midline, no thyromegaly Respiratory: normal respiratory effort, lungs clear to auscultation Cardiovascular: RRR, no murmur, no edema Chest (Breasts): Chest: normal inspection of chest Gastrointestinal (Abdomen): normal bowel sounds, soft, nontender, no hepatosplenomegaly Inspection/Auscultation: + abdomen distended (Mild) Musculoskeletal: Extremities: extremities normal to inspection; no cyanosis and no clubbing Skin: no rashes, warm and dry Neurologic: moves all extremities and awake; no focal motor deficits Psychiatric: Orientation: alert, oriented to person, oriented to place, oriented to time (Except said year was 2000 and after I corrected him,he knew it was 2020) and cooperative Speech: normal rate/rhythm/volume of speech Affect: euthymic affect Lymphatic: no lymphedema Results & Data Results & Data ([facility]) Vital Signs (Past 12 Hours) Vital Signs Temp Pulse Resp BP Pulse Ox 02/21/21 07:30 36.9 C 67 18 134/77 96 Laboratory Results 02/21/21 02/21/21 02/21/21 Range/Units 06:27 06:27 06:27 WBC 5.22 (4.8-10.8) K/uL RBC 3.15 L (4.7-6.1) M/uL Hgb 9.4 L (14.0-18.0) g/dL Hct 27.9 L (42-52) % MCV 88.6 (80-100) fL MCH 29.8 (25-34) pg MCHC 33.7 (32-36) g/dL RDW Std Deviation 59.5 H (36.4-46.3) fL RDW Coeff of Anderson 18.4 H (11.5-14.5) % Plt Count 84 L (130-400) K/uL MPV 9.5 (7.4-10.4) fL Immature Gran % (Auto) 0.2 % Neut % (Auto) 59.0 % Lymph % (Auto) 14.0 % Rusk % (Auto) 10.7 % Eos % (Auto) 15.3 % Baso % (Auto) 0.8 % Neut # (Auto) 3.08 (1.4-6.5) K/uL Lymph # (Auto) 0.73 L (1.2-3.4) K/uL Rusk # (Auto) 0.56 (0.11-0.59) K/uL Eos # (Auto) 0.80 H (0-0.5) K/uL Baso # (Auto) 0.04 (0-0.2) K/uL Immature Gran # (Auto) 0.01 (0.00-0.02) K/uL Sodium 142 (136-145) mmol/L Potassium 3.4 L (3.5-5.1) mmol/L Chloride 114 H (98-107) mmol/L Carbon Dioxide 21 (21-32) mmol/L Anion Gap 7.0 (3-11) BUN 19 H (7-18) mg/dl Creatinine 1.59 H D (0.6-1.4) mg/dl Est Cr Clr Drug Dosing 47.4 ml/min Est GFR ( Amer) 50.2 Est GFR (Non-Af Amer) 43.3 BUN/Creatinine Ratio 11.9 (10-20) Glucose 142 H (70-99) mg/dl Calcium 8.2 L (8.5-10.1) mg/dl Phosphorus 2.0 L (2.5-4.9) mg/dl Magnesium 1.9 (1.8-2.4) mg/dl Total Bilirubin 1.7 H (0.2-1) mg/dl Direct Bilirubin 0.4 H (0-0.2) mg/dl AST 34 (15-37) U/L ALT 21 (12-78) U/L Alkaline Phosphatase 91 (45-117) U/L Ammonia 23.9 (11-32) umol/L Total Protein 6.7 (6.4-8.2) gm/dl Albumin 2.6 L (3.4-5.0) gm/dl TSH 3.810 (0.300-4.500) uIu/ml PG Care Time/CCT Total # of Minutes Spent Total Time Spent with Patient: Total time spent is greater than 50% in coordination of care (as documented) at patient's floor/unit and/or counseling patient: Coding Level of Care Code 43543 Subseq Hosp Care Lvl 3 Diagnoses Hepatic encephalopathy K72.90 Anemia D64.9 Anemia type: unspecified type Abdominal ascites R18.8 Ascites type: other type Liver cirrhosis K74.60; R18.8 Ascites presence: with ascites Hepatic cirrhosis type: unspecified hepatic cirrhosis Esophageal varices I85.00 Esophageal varices bleeding: without bleeding Esophageal varices type: unspecified type Colitis K52.9 GI bleed K92.2 Fever R50.9 Thrombocytopenia D69.6 Hypokalemia E87.6 Hypernatremia E87.0 CKD (chronic kidney disease) stage 3, GFR 30-59 ml/min N18.30 Metabolic acidosis E87.2 BPH (benign prostatic hyperplasia) N40.0 CAD (coronary artery disease) I25.10 COPD (chronic obstructive pulmonary disease) J44.9 HTN (hypertension) I10 Hypertension type: unspecified DVT prophylaxis Z29.9 (1) Abdominal ascites Ascites type: other type Qualified Code(s): R18.8 - Other ascites (2) Anemia Anemia type: unspecified type Qualified Code(s): D64.9 - Anemia, unspecified (3) Esophageal varices Esophageal varices bleeding: without bleeding Esophageal varices type: unspecified type Qualified Code(s): I85.00 - Esophageal varices without bleeding (4) Liver cirrhosis Ascites presence: with ascites Hepatic cirrhosis type: unspecified hepatic cirrhosis Qualified Code(s): K74.60 - Unspecified cirrhosis of liver; R18.8 - Other ascites (5) HTN (hypertension) Hypertension type: unspecified Qualified Code(s): I10 - Essential (primary) hypertension
--- NOTE | 2021-02-21 13:44 | Progress Notes ---
DATE: 02/21/2021 Addition to the progress note by Rae Carney: I reviewed the patient's chart and lab work and examined the patient. He is recovering from his hepatic encephalopathy and is awake, but still having difficulty with orientation. I agree with the note by Rae Carney that we should continue his lactulose and Xifaxan at the present time.
[2021-02-21] MEDS: SODIUM BICARBONATE 650 MG TAB PO SCH (20:41)
[2021-02-22 08:09] LABS: Albumin Level 2.6 gm/dl (3.4-5.0); BUN Creatinine Ratio 10.4 (10-20); Calcium 8.4 mg/dl (8.5-10.1); Creatinine Clr Calc Pharmacy 47.7 ml/min; Est GFR (African American) 50.6; Est GFR (Non-African American) 43.7; Potassium 3.5 mmol/L (3.5-5.1)
[2021-02-22 08:21] LABS: Albumin Globulin Ratio 0.7 (0.9-2); Bilirubin,Total 1.2 mg/dl (0.2-1); Phosphorus 2.9 mg/dl (2.5-4.9); Total Protein 6.6 gm/dl (6.4-8.2)
[2021-02-22] MEDS: FLUTICASONE/VILANTEROL 100/25MCG 14 PUFFS/INHALER INH SCH (08:41)
[2021-02-22] MEDS: TAMSULOSIN HCL 0.4 MG CAP PO SCH (08:44)
[2021-02-22] MEDS: MAGNESIUM OXIDE 400 MG TAB PO SCH (08:44)
[2021-02-22] MEDS: METOPROLOL TARTRATE 25 MG TAB PO SCH (08:45)
[2021-02-22] MEDS: CEROVITE ADV FORMULA TAB PO SCH (08:45)
[2021-02-22] MEDS: CYANOCOBALAMIN 500 MCG TABLET (VITAMIN B-12) PO SCH (08:45)
[2021-02-22] MEDS: ATORVASTATIN 20 MG TAB PO SCH (08:45)
[2021-02-22] MEDS: FERROUS SULFATE 325 MG TAB PO SCH (08:45)
[2021-02-22] MEDS: FOLIC ACID 1 MG TAB PO SCH (08:45)
[2021-02-22] MEDS: rifAXIMin 550 MG TABLET PO SCH (08:45)
[2021-02-22] MEDS: SODIUM BICARBONATE 650 MG TAB PO SCH (08:45)
[2021-02-22] MEDS: DOCUSATE SODIUM 100 MG CAP PO SCH (08:45)
[2021-02-22] MEDS: FINASTERIDE 5 MG TAB PO SCH (08:45)
[2021-02-22] MEDS: UMECLIDINIUM BROMIDE 62.5MCG/BLISTER 7 PUFFS/INHALER INH SCH (08:45)
[2021-02-22] MEDS: LACTULOSE SYRUP 20 GM/30 ML UDC PO SCH (08:46)
[2021-02-22] MEDS: THIAMINE HCL 200 MG in SODIUM CHLORIDE 0.9% 50 ML IV SCH (08:54)
--- NOTE | 2021-02-22 09:30 | Gastroenterology Progress Note ---
Date of Service February 22, 2021 Assessment & Plan (1) Hepatic encephalopathy: Altered mental status due to hepatic encephalopathy has improved. He is alert to person and place this morning. Continue oral lactulose orally with goal of 3 bowel movements per day and Xifaxan 550 mg p.o. BID. GI service will continue to monitor. Please refer to supervising physician addendum for further recommendations. Admission and Anticipated Discharge Date Admission Date: February 17, 2021 Subjective Patient is alert and oriented to person and place today. Asking when he can go home. Emphatic that he does not want to go to a prison. He denies abdominal pain, nausea. Is tolerating diet well. Review of Systems Review of Systems: All systems reviewed & are unremarkable except as noted in Subjective Physical Exam Constitutional: no acute distress Neck: normal visual inspection Respiratory: no respiratory distress and no labored breathing Gastrointestinal (Abdomen): Inspection/Auscultation: abdomen normal to inspection and normal bowel sounds Percussion/Palpation: abdomen soft; abdomen nontender Psychiatric: Orientation: alert, oriented to person and oriented to place Results & Data ([facility]) Vital Signs (Past 12 Hours) Vital Signs Temp Pulse Resp BP BP Pulse Ox 02/22/21 07:14 36.8 C 71 16 121/73 95 02/21/21 23:29 36.8 C 72 16 114/73 95 Laboratory Results - last 24 hr 02/22/21 07:13 Sodium 143 Potassium 3.5 Chloride 116 H Carbon Dioxide 22 Anion Gap 6.0 BUN 17 Creatinine 1.58 H Est Cr Clr Drug Dosing 47.7 Est GFR ( Amer) 50.6 Est GFR (Non-Af Amer) 43.7 BUN/Creatinine Ratio 10.4 Glucose 115 H Calcium 8.4 L Phosphorus 2.9 Magnesium 2.0 Total Bilirubin 1.2 H AST 34 ALT 20 Alkaline Phosphatase 101 Total Protein 6.6 Albumin 2.6 L Globulin 4.0 Albumin/Globulin Ratio 0.7 L
[2021-02-22] MEDS ORDERED: POTASSIUM CHLORIDE CRTAB 20 MEQ TABCR PO STA (09:43)
[2021-02-22] MEDS ORDERED: SPIRONOLACTONE 100 MG TAB PO SCH (09:45)
--- NOTE | 2021-02-22 11:44 | Palliative Care Consultation ---
Date of Consultation February 22, 2021 Assessment & Plan (1) Palliative care encounter: Mr. Willis is a 70 year old male who presented to the [facility] from [place] where he was found down and unresponsive. He has an extensive medical history that includes hepatorenal failure, esophageal varicies, CKD III, DM2, HTN, anemia of chronic disease, CAD s/p stent placement, peripheral neuropathy and history of malignant neoplasm of the prostate. His overall condition has improved dramatically. His Ammonia initially was 161 and is now 39, with treatment of Lactulose. Palliative Care was consulted to discuss overall goals of care. I met with the patient. He was sitting in his bedside chair in no apparent distress. He was fully awake, alert, and oriented and able to participate in conversation with me. He was receptive to receiving PT/OT and was receptive to being a DNR/DNI in the event of cardiac arrest. He was clear that in the event he is no longer able to make medical decisions on his own behalf, that he would want his sister, Juvenal, who is established as his POA to be his decision maker. For now, the goal is for him to return to [place] for some short term rehab and eventually move to [place] to be closer to the [place] hospital. I did call his POA and sister, Juvenal to discuss the above and she was in agreement. He actually may be discharged today. POLST form completed. See below. (2) CKD (chronic kidney disease) stage 3, GFR 30-59 ml/min: (3) Esophageal varices: Esophageal varices bleeding: without bleeding Esophageal varices type: unspecified type Qualified Code(s): I85.00 - Esophageal varices without bleeding (4) Metabolic encephalopathy: Ammonia level has significantly improved from 161--> 39 with Lactulose. AAOx3. (5) POLST (Physician Orders for Life-Sustaining Treatment): Completed at bedside indicating DNR/DNI, limited intervention with wanting him to come back to the hospital, trial abx, and no artificial nutrition/hydration. He would like his sister to be the appointed decision maker and also sign the POLST form. It was discussed over the phone and documented as such. History of Present Illness Reason for Consultation: goals of care Requesting Physician: Dr. Queen Attending Physician: Heather Queen MD History of Present Illness Mr. Willis is a 70 year old male who presented to the [facility] from [place] where he was found down and unresponsive. He has an extensive medical history that includes hepatorenal failure, esophageal varicies, CKD III, DM2, HTN, anemia of chronic disease, CAD s/p stent placement, peripheral neuropathy and history of malignant neoplasm of the prostate. His overall condition has improved dramatically. His Ammonia initially was 161 and is now 39, with treatment of Lactulose. Palliative Care was consulted to discuss overall goals of care. Please see A/P for additional details. Thanks for involving palliative medicine with this individual. Allergies Allergy/AdvReac Type Severity Reaction Status Date / Time fentanyl AdvReac Severe WENT Verified 02/08/21 12:40 CRAZY, HALLUCINATIONS, BIZARRE BEHAVIOR Home Medications Medication Instructions Recorded Confirmed Type Spiriva Respimat 2 puff INHALATION QAM 08/14/20 02/17/21 History cyanocobalamin (vitamin B-12) 500 mcg PO QAM 08/14/20 02/17/21 History [Vitamin B-12] ferrous sulfate 325 mg PO QAM 08/14/20 02/17/21 History finasteride [Proscar] 5 mg PO QAM 08/14/20 02/17/21 History folic acid 1 mg PO QAM 08/14/20 02/17/21 History tamsulosin 0.4 mg PO QAM 08/14/20 02/17/21 History atorvastatin 20 mg PO QAM 08/23/20 02/17/21 History budesonide-formoterol 2 puff INHALATION BID 08/23/20 02/17/21 History magnesium oxide 420 mg PO QAM 08/23/20 02/17/21 History meclizine 12.5 mg PO TID PRN 08/23/20 02/17/21 History melatonin 3 mg PO HS PRN 08/23/20 02/17/21 History multivitamin with minerals 1 tab PO QAM 08/23/20 02/17/21 History [Multiple Vitamin-Minerals] docusate sodium [Colace] 100 mg PO BID #60 cap 11/14/20 02/17/21 Rx furosemide 20 mg PO BID 30 Days #60 tab 01/17/21 02/17/21 Rx spironolactone 100 mg PO QAM 30 Days #30 tab 01/17/21 02/17/21 Rx lactulose 20 g PO BID 30 Days #1800 ml 02/22/21 Rx metoprolol tartrate 25 mg PO BID #60 tab 02/22/21 Rx rifaximin [Xifaxan] 550 mg PO BID #60 tab 02/22/21 Rx sodium bicarbonate 650 mg PO BID #60 tab 02/22/21 Rx Patient History Medical History (Updated 02/22/21 @ 15:57 by JUNIOR Ferreira) Acute hypotension Acute kidney injury Acute lower GI bleeding Aortic aneurysm CAD (coronary artery disease) Follows with [facility] Chronic pain CKD (chronic kidney disease) stage 3, GFR 30-59 ml/min COPD (chronic obstructive pulmonary disease) Crohn's disease Crushing injury of chest 1970s Depression DM type 2 (diabetes mellitus, type 2) NIDDM Dyslipidemia Esophageal varices Esophageal varices with banding x 3 (most recent approx 1 year ago) Hepatic encephalopathy history of - 2020 History of CVA (cerebrovascular accident) approx 6 years ago; no residual History of hepatitis C History of nephrolithiasis History of prostate cancer dx 1 year ago; radiation History of subdural hematoma HTN (hypertension) Hypertension Malignant neoplasm of prostate Metabolic encephalopathy Non-alcoholic cirrhosis Palliative care encounter Peripheral neuropathy POLST (Physician Orders for Life-Sustaining Treatment) Poor historian history obtained from staff member at [facility] and pt Tremor Surgical History H/O inguinal hernia repair left side History of aortic aneurysm repair History of cardiac cath 2018 [facility] History of cholecystectomy History of cystoscopy History of esophageal surgery as an History of facial surgery as a child following injury History of hernia repair multiple S/P coronary artery stent placement Family History Other Family history non-contributory Social History Smoking Status: Unknown if ever smoked Tobacco Type: Cigarettes Cigarettes Per Day: 1-2 per day; Second Hand Exposure: No; Hx Alcohol Use: No Hx Substance Use: No Preferred Language: Danish Communication Ability: Impaired County Bailiff Required: No Beliefs That Will Affect Care: None Current Living Situation: Personal Care Facility Current Living Situation Comment: [facility] Feels Safe at Home: Yes Assistive Devices: Glasses and Hearing Aid - Bilateral Review of Systems Review of Systems: [place] [facility] Assessment Scale: Tiredness: 0/3 Lack of Appetite: 0/3 Shortness of breath: 0/3 Anxiety: 0/3 Palliative Performance Scale: 40% Physical Exam Constitutional: + cachectic, + frail appearing and cooperative ENMT: Nose: + dry nasal mucous membranes Neck: trachea midline, no thyromegaly Respiratory: normal respiratory effort, lungs clear to auscultation Cardiovascular: Heart Sounds: normal S1 and normal S2 Extremities: normal capillary refill; no edema Gastrointestinal (Abdomen): Percussion/Palpation: + hepatomegaly Skin: no rashes, warm and dry + pallor Psychiatric: Orientation: alert and oriented x 3 Insight: good insight Judgement: good judgement Results & Data ([facility]) Vital Signs (Past 12 Hours) Vital Signs Temp Pulse Resp BP Pulse Ox 02/22/21 07:14 36.8 C 71 16 121/73 95 PG Care Time/CCT Total # of Minutes Spent Total Time Spent with Patient: Total time spent is greater than 50% in coordination of care (as documented) at patient's floor/unit and/or counseling patient: 100 minutes with > 50% of that time spent assessing the patient, discussing goals of care with the patient and his sister, and collaborating with IDT Coding Level of Care Code 72412 Inpt Consult Level 4 Diagnoses Palliative care encounter Z51.5 CKD (chronic kidney disease) stage 3, GFR 30-59 ml/min N18.30 Esophageal varices I85.00 Esophageal varices bleeding: without bleeding Esophageal varices type: unspecified type Metabolic encephalopathy G93.41 POLST (Physician Orders for Life-Sustaining Treatment) Z78.9 Time Spent (min) 100
--- NOTE | 2021-02-22 13:45 | Discharge Summary ---
Date of Service February 22, 2021 Admission HPI Per Admitting Provider Alfredo Willis is a 70-year-old male who presents to the ER via EMS from [place]. He was found down and unresponsive by staff during morning rounds this morning. On arrival to the ER occasional spontaneous movements of limbs noted, moaning to touch, unable to follow commands. There was some concern about leftward gaze but unclear whether this is acute or chronic. Unable to get any history from the patient. The patient has a significant history of liver cirrhosis with esophageal varices. He was recently admitted with a life-threatening lower GI bleed from January 06 to January 17 with hemoglobin 6.0 and hypotension requiring ICU admission and dialysis. No significant bleeding since that time and hemoglobin at baseline. In the ER he underwent stroke workup although his symptoms are non-focal. WBC at baseline. Ammonia 161.9. He was referred to medicine for admission and ongoing management of altered mental state. Principal Diagnosis Acute hepatic encephalopathy Discharge Exam Constitutional WD/WN, vitals as above Eyes + anicteric sclerae Neck trachea midline, no thyromegaly Respiratory normal respiratory effort, lungs clear to auscultation Cardiovascular RRR, no murmur, no edema Chest (Breasts) Chest: normal inspection of chest Gastrointestinal (Abdomen) normal bowel sounds, soft, nontender, no hepatosplenomegaly Musculoskeletal Extremities: extremities normal to inspection; no cyanosis and no clubbing Skin no rashes, warm and dry Neurologic moves all extremities and awake; no focal motor deficits ambulating with a walker around the room Psychiatric Orientation: alert, oriented to person, oriented to place and cooperative Speech: normal rate/rhythm/volume of speech Affect: euthymic affect Lymphatic no lymphedema Discharge Data Allergies Allergy/AdvReac Type Severity Reaction Status Date / Time fentanyl AdvReac Severe WENT Verified 02/08/21 12:40 CRAZY, HALLUCINATIONS, BIZARRE BEHAVIOR Consultations 02/17/21 10:52 ED Decision to Admit Stat 02/17/21 15:36 Consult Gastroenterology Routine 02/21/21 13:04 Consult Palliative Care Routine Ordered Studies 02/17/21 09:41 CT angio head w con Stat CT angio neck with con Stat CT head/brain wo con Stat 02/18/21 08:07 CT abd pelvis wo con Urgent 02/19/21 09:00 US paracentesis abd w/image Routine CXR x 2 KUB Hospital Course (1) Hepatic encephalopathy: Suspect this is the primary cause of his reduced responsiveness. He was completely unresponsive and 02/18 and his ammonia level was 161 CT the head negative for acute On 02/19 is much improved and awake and eating, still confused but answers some questions-similar on 02/20 On 02/21, he is significantly improved, much more conversant and oriented. Has good recall and can make his own decisions. He was treated with lactulose enema every 8 hours and now improved, ammonia level down to 23 DCd lactulose enemas and started lactulose 20 g p.o. 3 times daily, aim for 3 BMs daily--> was having too many BMs and reduced dose to bid for discharge Started rifaximin 550 mg p.o. twice daily Continue supportive care is ambulating, eating , oriented at time of discharge f/u with GI as an outpt (2) Anemia: Normocytic. Hemoglobin stable at 9.4 for several days Notable recent history of life-threatening GI bleed on last admission in 12/2020 and bright red blood noted in ER this admission. None since then Follow CBC periodically as outpt (3) Abdominal ascites: Do not suspect SBP based on paracentesis performed on 02/19 which removed 1.7 L of fluid Did have fever, no tenderness on examination Restarted home Lasix and spironolactone Follow ascites fluid culture-no growth -Discontinued IV Zosyn (4) Liver cirrhosis: Secondary to hepatitis C, posttreatment but unknown details regarding this With portal hypertension, splenomegaly, esophageal varices restart Lasix, Aldactone Added rifaximin and lactulose as above Started beta-klaudia- metoprolol 25 mg p.o. twice daily Appreciate GI consultation End-stage, needs palliative care consultation for goals of care discussion as I discussed with him that this will likely continue to deteriorate his condition in the future-appreciate their consult-POLST form filled out (5) Esophageal varices: As noted on previous EGD No bleeding at this time (6) Colitis: Noted to have nonspecific colitis on CT abdomen/pelvis, did have a fever but this may have been related to an aspiration event on 02/18? No further fever, remains on IV Zosyn and Flagyl discontinued-have since discontinued IV Zosyn (7) GI bleed: As above seems to have resolved Hemoglobin stable (8) Fever: Had a fever on 02/18 which is now resolved We will now DC IV Zosyn which was used empiric for colitis and SBP which is now been ruled out May be due to colitis versus aspiration? Chest x-ray is negative for acute issues UA no evidence of infection May be related to atelectasis as he was essentially comatose There is no evidence of DVT on examination -Have since discontinued the Rausch DCd antibiotics (9) Thrombocytopenia: Platelets fairly stable around his baseline in the 80s Follow CBC periodically This is secondary to cirrhosis and portal hypertension (10) Hypokalemia: Potassium replaced and resolved (11) Hypernatremia: Sodium mildly elevated at 147 and now improved with D5W sodium bicarbonate drip as well as increased po intake down to 143 Secondary to poor p.o. intake ok to restart spironolactone and Lasix Follow BMP with PCP as an outpt (12) CKD (chronic kidney disease) stage 3, GFR 30-59 ml/min: Creatinine is at baseline at 1.59, was higher on admission and improved with IV normal saline -Avoid nephrotoxins -renally dose meds when appropriate -follow BMP as outpt (13) Metabolic acidosis: Improved up to 22 after starting bicarbonate drip and then po NaHCO3 tabs 650mg po bid Likely secondary to renal failure and perhaps loose stools from GI losses Follow BMP as outpt -cont sodium bicarbonate 650 mg p.o. twice daily (14) BPH (benign prostatic hyperplasia): Rausch catheter was placed on admission due to unresponsive state. -continue tamsulosin Rausch catheter was removed on 02/20 (15) CAD (coronary artery disease): Prior history of this s/p LAD PCI (multiple) Non on antiplatelet therapy due to recent life-threatening bleed. No acute issues here Started metoprolol Continue atorvastatin 20mg PO daily (16) COPD (chronic obstructive pulmonary disease): No acute exacerbation suspected Continue usual maintenance inhalers when able (17) HTN (hypertension): Blood pressures are controlled continue p.o. metoprolol continue spironolactone and Lasix (18) DVT prophylaxis: SCDs No chemical prophylaxis due to prior life threatening bleed Disposition-PT/OT evals recommended SNF but pt declined. Wants home with home PT/OT DNR/DNI Palliative care consulted for goals of care discussion-POLST form filled out prior to discharge Total Time Total Time Spent Total Time Spent (In Minutes): 35 min Total Time Includes: Examination of the Patient, Discharge Planning and Medication Reconciliation Discharge Plan Discharge Items Patient Disposition: Home - Home Health Services Reason For Visit: HEPATIC ENCEPHALOPATHY,DECREASED RESPONSIVENESS Discharge Diagnosis: Hepatic encephalopathy Condition on Discharge: Fair Activity: As commented below Lifting: Gradually increase as tolerated Bathing: No limitations Exercise/Sports: Gradually increase as tolerated Exercise Comment: with home PT/OT Weightbearing: Full weightbearing Non-emergency contact: Primary Care Provider Call non-emergency contact if: you have any medication questions, your symptoms worsen, your pain is not controlled and you have a fever Follow-up/Referrals: Kolby Estrada [Physician] - (Follow up within 1 month) Osmany Molina MD [Primary Care Provider] - Diet: Low Sodium (2gm) Diet Comment: Minced and moist diet Addtl Attending Provider Instructions: You were admitted due to being very confused from a buildup of toxins/ammonia in your blood stream from your liver cirrhosis. You were started on lactulose and Rifaximin and had great improvement. Please stay on these medications and expect loose stools 2-3 times per day to keep this from happening again. A visiting nurse and therapist will be coming to your home to help you with rehab. Follow up with your primary care doctor within 1-2 weeks. Please also follow up with Gastroenterology within 1 month. Pending Studies at Discharge: No Stand-Alone Forms: My [facility] Medications and DC Order Prescriptions: New Xifaxan 550 mg Tablet 550 mg PO BID Qty: 60 RF: 0 metoprolol tartrate 25 mg Tablet 25 mg PO BID Qty: 60 RF: 0 lactulose 20 gram/30 mL Solution 20 g PO BID 30 Days Qty: 1800 RF: 0 sodium bicarbonate 650 mg Tablet 650 mg PO BID Qty: 60 RF: 0 Continued cyanocobalamin (vitamin B-12) [Vitamin B-12] 500 mcg Tablet 500 mcg PO QAM RF: 0 tamsulosin 0.4 mg Capsule 0.4 mg PO QAM RF: 0 ferrous sulfate 325 mg (65 mg iron) Tablet 325 mg PO QAM RF: 0 folic acid 1 mg Tablet 1 mg PO QAM RF: 0 finasteride [Proscar] 5 mg Tablet 5 mg PO QAM RF: 0 Spiriva Respimat 1.25 mcg/actuation Mist 2 puff INHALATION QAM RF: 0 docusate sodium [Colace] 100 mg capsule 100 mg PO BID Qty: 60 RF: 0 spironolactone 100 mg Tablet 100 mg PO QAM 30 Days Qty: 30 RF: 3 furosemide 20 mg Tablet 20 mg PO BID 30 Days Qty: 60 RF: 3 atorvastatin 40 mg Tablet 20 mg PO QAM RF: 0 budesonide-formoterol 160-4.5 mcg/actuation Hfa Aerosol Inhaler 2 puff INHALATION BID RF: 0 magnesium oxide 420 mg Tablet 420 mg PO QAM RF: 0 meclizine 12.5 mg Tablet 12.5 mg PO TID PRN (Reason: Dizziness Or Vertigo) RF: 0 melatonin 3 mg Tablet 3 mg PO HS PRN (Reason: Insomnia) RF: 0 multivitamin with minerals [Multiple Vitamin-Minerals] Tablet 1 tab PO QAM RF: 0 Discontinued gabapentin 300 mg Capsule 600 mg PO TID RF: 0 Discharge Orders: Discharge Order (Routine); Ordered 02/22/21 Ordered By: Heather Queen Admission Data Admit Date/Time: 02/17/21 11:51 Attending Provider: Heather Queen Admit Provider: Chris Miller Primary Care Provider: Osmany Molina Other Providers: [facility] ; Chris Miller ; Kolby Estrada ; Lizeth Cardona ; [facility] Coding Level of Care Code D/C Day Management >30 mins Diagnoses Hepatic encephalopathy K72.90 Anemia D64.9 Anemia type: unspecified type Abdominal ascites R18.8 Ascites type: other type Liver cirrhosis K74.60; R18.8 Ascites presence: with ascites Hepatic cirrhosis type: unspecified hepatic cirrhosis Esophageal varices I85.00 Esophageal varices bleeding: without bleeding Esophageal varices type: unspecified type Colitis K52.9 GI bleed K92.2 Fever R50.9 Thrombocytopenia D69.6 Hypokalemia E87.6 Hypernatremia E87.0 CKD (chronic kidney disease) stage 3, GFR 30-59 ml/min N18.30 Metabolic acidosis E87.2 BPH (benign prostatic hyperplasia) N40.0 CAD (coronary artery disease) I25.10 COPD (chronic obstructive pulmonary disease) J44.9 HTN (hypertension) I10 Hypertension type: unspecified DVT prophylaxis Z29.9
[2021-02-22] MEDS: FUROSEMIDE 20 MG TAB PO SCH (17:00)
[2021-02-22] MEDS ORDERED: SODIUM BICARBONATE 650 MG TAB PO SCH ×2 (21:00)
[2021-02-22] MEDS ORDERED: METOPROLOL TARTRATE 25 MG TAB PO SCH ×2 (21:00)
[2021-02-22] MEDS ORDERED: rifAXIMin 550 MG TABLET PO SCH ×2 (21:00)
[2021-02-22] MEDS ORDERED: LACTULOSE SYRUP 20 GM/30 ML UDC PO SCH ×3 (21:00)
== END 2021-02-22 17:49 | disposition home health service (06) | DRG 442 ==
LOC: 2S 11:51 → SUATTDRO 11:51 → 2S 12:42 → 2N 02-19 13:14 → 3W 02-21 20:57

== ENCOUNTER 2021-02-26 10:25 | Inpatient (IN) ==
[2021-02-26] MEDS ORDERED: SODIUM CHLORIDE 0.9% 500 ML IV STA (10:46)
[2021-02-26] MEDS ORDERED: ONDANSETRON INJ 2 MG/ML 2 ML VIAL IV STA (10:46)
--- NOTE | 2021-02-26 10:53 | Emergency Department Note ---
Impression & Plan Abdominal pain, Abdominal ascites ED Provider Note NAME: EARNEST POOL AGE: 70 SEX: M : 1950 ARRIVES VIA: Ambulance INFORMANT: Patient, ED PROVIDER(S): Jonh Karimi DO CHIEF COMPLAINT: Abdominal pain HPI: The patient is a 70-year-old male who presented to the emergency department by ambulance from the [facility] for an evaluation of abdominal pain. The patient states he was recently discharged from our facility for an upper GI bleed. The patient states he is been feeling well. He denies having any black or bloody bowel movements. He states he was following up with his primary care physician today when he had an acute onset of lower abdominal pain. The patient denies having any fever or cough. He states the pain is very severe and worsened with any movement or palpation over the lower abdomen. He denies h aving any lower extremity swelling. The patient denies having any previous symptoms similar to this. The patient states that he has been compliant with his outpatient medication regimen. He appears to be in very severe pain on arrival. ROS: See above HPI for pertinent positives & negatives. A total of 10 systems reviewed and were otherwise negative. PAST MEDICAL HISTORY: See Below PAST SURGICAL HISTORY: See Below FAMILY HISTORY: See Below SOCIAL HISTORY: See Below HOME MEDICATIONS: See Below ALLERGIES: See Below VITALS: See Below PHYSICAL EXAMINATION: GENERAL: The patient is awake and alert. The patient is very anxious appearing and appears to be in significant pain. EYES: The conjunctivae are pale. The pupils are round and reactive. EARS, NOSE, MOUTH AND THROAT: The nose is without any evidence of any deformity. NECK: The neck is nontender and supple. RESPIRATORY: Normal respiratory effort is noted there is no evidence of wheezing rhonchi or rales CARDIOVASCULAR: Regular rate and rhythm noted there no murmurs rubs or gallops normal S1 normal S2. GASTROINTESTINAL: The abdomen is moderately distended and diffusely tender. There is guarding in the lower abdomen. MUSCULOSKELETAL/EXTREMITIES: There is no evidence of gross deformity full range of motion is noted in the hips and shoulders. SKIN: Skin is cool and dry. There is trace pedal edema bilaterally. NEUROLOGIC: Patient is awake alert and oriented x3. MEDICAL DECISION MAKING: The patient is a 70-year-old male who presented to the emergency department for an evaluation of abdominal pain. The patient had very severe abdominal pain on exam he was guarding. The patient does of a history of cirrhosis as well as ascites. He does have a history of GI bleeding as well. He has a history of esophageal varices. The patient was treated with pain medication. He was reevaluated multiple times. The patient continued to have significant pain in his lower abdomen with palpation. For this reason I discussed his case with the on-call [facility] hospitalist. They have agreed to evaluate the patient in the emergency department for further management and disposition. Triage Nursing notes reviewed. Prior medical records reviewed Vital Signs: reviewed and remarkable for elevated blood pressure. Differential diagnosis: Etiologies such as appendicitis, diverticulitis, obstruction, inflammatory bowel disease, renal colic, PUD, biliary pathology, pancreatitis, mesenteric ischemia, aortic pathology, infections, genitourinary, UTI, perforated viscus, as well as others were entertained. ER treatment provided: See below Diagnostics interpreted by me: ECG: EKG was obtained in the emergency department. My interpretation is sinus bradycardia at 60 bpm. There is no ectopy. There was no acute ST segment abnormalities noted. This was compared to a tracing from February 172020. No significant changes were noted. Cardiac Monitoring: An order was placed for continuous cardiac monitoring. The monitor shows a rate of 70 bpm with sinus rhythm. Laboratory studies: As stated above and show below. Imaging studies: See below Consultation(s): 1405: I discussed this case with Dr. Miller who is on-call for the [facility] hospitalist group. Past Med/Surg History Medical History Acute hypotension Acute kidney injury Acute lower GI bleeding Acute upper gastrointestinal bleeding Aortic aneurysm CAD (coronary artery disease) Follows with [facility] Chronic pain CKD (chronic kidney disease) stage 3, GFR 30-59 ml/min Colitis COPD (chronic obstructive pulmonary disease) Crohn's disease Crushing injury of chest 1970s Depression DM type 2 (diabetes mellitus, type 2) NIDDM Dyslipidemia Esophageal varices Esophageal varices with banding x 3 (most recent approx 1 year ago) Hepatic encephalopathy history of 2019 History of CVA (cerebrovascular accident) approx 6 years ago; no residual History of hepatitis C History of nephrolithiasis History of prostate cancer dx 1 year ago; radiation History of subdural hematoma HTN (hypertension) Malignant neoplasm of prostate Non-alcoholic cirrhosis Peripheral neuropathy POLST (Physician Orders for Life-Sustaining Treatment) Poor historian history obtained from staff member at [facility] and pt Tremor Surgical History H/O inguinal hernia repair left side History of aortic aneurysm repair History of cardiac cath [address] [facility] [place] History of cholecystectomy History of cystoscopy History of esophageal surgery as an History of facial surgery as a child following injury History of hernia repair multiple S/P coronary artery stent placement Family History Other Family history non-contributory Social History Smoking Status: Current every day smoker Tobacco Type: Cigarettes Cigarettes Per Day: 3; Second Hand Exposure: No; Do You Dip or Chew Tobacco: No; Hx Alcohol Use: No Hx Substance Use: No (used over a year ago.) Preferred Language: Turkmen Communication Ability: Impaired Hvac Estimator Required: No Beliefs That Will Affect Care: Spiritual Current Living Situation: [facility] Current Living Situation Comment: [facility]. Feels Safe at Home: Yes Safety Concerns: Feels Safe At This Time Assistive Devices: Glasses and Walker Allergies Allergies Allergy/AdvReac Type Severity Reaction Status Date / Time fentanyl AdvReac Severe WENT Verified 02/26/21 10:53 CRAZY, HALLUCINATIONS, BIZARRE BEHAVIOR Home Meds Home Medications Medication Instructions Recorded Confirmed Spiriva Respimat 2 puff INHALATION QAM 08/14/20 02/26/21 cyanocobalamin (vitamin B-12) 500 mcg PO QAM 08/14/20 02/26/21 [Vitamin B-12] ferrous sulfate 325 mg PO QAM 08/14/20 02/26/21 finasteride [Proscar] 5 mg PO QAM 08/14/20 02/26/21 folic acid 1 mg PO QAM 08/14/20 02/26/21 tamsulosin 0.4 mg PO QAM 08/14/20 02/26/21 atorvastatin 20 mg PO QAM 08/23/20 02/26/21 budesonide-formoterol 2 puff INHALATION BID 08/23/20 02/26/21 magnesium oxide 420 mg PO QAM 08/23/20 02/26/21 melatonin 3 mg PO HS PRN 08/23/20 02/26/21 multivitamin with minerals 1 tab PO QAM 08/23/20 02/26/21 [Multiple Vitamin-Minerals] cholecalciferol (vitamin D3) 25 mcg PO DAILY 02/26/21 02/26/21 pantoprazole 40 mg PO BID 02/26/21 02/26/21 sennosides [senna] 8.6 mg PO HS 02/26/21 02/26/21 Previous Rx's Medication Instructions Recorded docusate sodium [Colace] 100 mg PO BID #60 cap 11/14/20 furosemide 20 mg PO BID 30 Days #60 tab 01/17/21 spironolactone 100 mg PO QAM 30 Days #30 tab 01/17/21 lactulose 20 g PO BID 30 Days #1800 ml 02/22/21 metoprolol tartrate 25 mg PO BID #60 tab 02/22/21 rifaximin [Xifaxan] 550 mg PO BID #60 tab 02/22/21 sodium bicarbonate 650 mg PO BID #60 tab 02/22/21 Results & Data (ED) Vital Signs Vital Signs - 24 hr 02/26/21 10:30 02/26/21 10:34 02/26/21 10:35 Temperature 36.8 C Temperature Source Temporal Artery Scan Pulse Rate 61 60 65 Pulse Rate [Left Apical] Pulse Rate from SpO2 Sensor 60 64 Pulse Rhythm Pulse Rhythm [Left Apical] Pulse Strength [Left Apical] Respiratory Rate 22 18 24 Respiratory Effort / Characteristics Respiratory Depth Respiratory Pattern Blood Pressure 165/83 H 168/83 H Blood Pressure [Right Arm] Blood Pressure Mean 110 111 Blood Pressure Mean [Right Arm] Blood Pressure Position [Right Arm] Pulse Oximetry 100 100 100 Oxygen Delivery Method Room Air Sepsis Recent Fever Within 48 Hours No Sepsis New/Unexplained Change in Mental Status No Sepsis Action Taken by Nursing No Action Required 02/26/21 11:26 02/26/21 11:30 02/26/21 12:00 Temperature Temperature Source Pulse Rate 65 Pulse Rate [Left Apical] 62 77 Pulse Rate from SpO2 Sensor Pulse Rhythm Regular Pulse Rhythm [Left Apical] Regular Regular Pulse Strength [Left Apical] Normal Normal Respiratory Rate 22 18 Respiratory Effort / Characteristics Non-Labored Spontaneous Non-Labored Spontaneous Respiratory Depth Normal Normal Respiratory Pattern Regular Regular Blood Pressure Blood Pressure [Right Arm] 163/84 H 155/90 H Blood Pressure Mean Blood Pressure Mean [Right Arm] 110 111 Blood Pressure Position [Right Arm] Lying Lying Pulse Oximetry 10 L 100 97 Oxygen Delivery Method Room Air Room Air Room Air Sepsis Recent Fever Within 48 Hours Sepsis New/Unexplained Change in Mental Status Sepsis Action Taken by Nursing 02/26/21 13:00 02/26/21 13:47 Temperature Temperature Source Pulse Rate Pulse Rate [Left Apical] 69 68 Pulse Rate from SpO2 Sensor Pulse Rhythm Pulse Rhythm [Left Apical] Regular Regular Pulse Strength [Left Apical] Normal Normal Respiratory Rate 21 24 Respiratory Effort / Characteristics Non-Labored Spontaneous Non-Labored Spontaneous Respiratory Depth Normal Normal Respiratory Pattern Regular Regular Blood Pressure Blood Pressure [Right Arm] 149/83 H 107/76 Blood Pressure Mean Blood Pressure Mean [Right Arm] 105 86 Blood Pressure Position [Right Arm] Lying Lying Pulse Oximetry 100 98 Oxygen Delivery Method Room Air Room Air Sepsis Recent Fever Within 48 Hours Sepsis New/Unexplained Change in Mental Status Sepsis Action Taken by Usp Medications Current Medication List: was personally reviewed by me Laboratory Data Attestation: I reviewed the patient's lab results. Result diagrams: 02/26/21 11:20 02/26/21 11:20 Lab Results 02/26/21 02/26/21 02/26/21 Range/Units 11:20 11:20 11:20 WBC 5.16 (4.8-10.8) K/uL RBC 3.27 L (4.7-6.1) M/uL Hgb 9.9 L (14.0-18.0) g/dL POC Hgb (14.0-18.0) g/dl Hct 29.5 L (42-52) % POC Hct (42-52) % MCV 90.2 (80-100) fL MCH 30.3 (25-34) pg MCHC 33.6 (32-36) g/dL RDW Std Deviation 62.5 H (36.4-46.3) fL RDW Coeff of Anderson 19.0 H (11.5-14.5) % Plt Count 109 L (130-400) K/uL MPV 10.8 H (7.4-10.4) fL Immature Gran % (Auto) 0.4 % Neut % (Auto) 70.9 % Lymph % (Auto) 12.4 % [place] % (Auto) 10.5 % Eos % (Auto) 5.2 % Baso % (Auto) 0.6 % Neut # (Auto) 3.66 (1.4-6.5) K/uL Lymph # (Auto) 0.64 L (1.2-3.4) K/uL [place] # (Auto) 0.54 (0.11-0.59) K/uL Eos # (Auto) 0.27 (0-0.5) K/uL Baso # (Auto) 0.03 (0-0.2) K/uL Immature Gran # (Auto) 0.02 (0.00-0.02) K/uL PT Cancelled INR Cancelled APTT Cancelled PTT Ratio Cancelled POC Sodium (135-144) mmol/L Sodium 140 (136-145) mmol/L POC Potassium (3.3-5.0) mmol/L Potassium 3.9 (3.5-5.1) mmol/L POC Chloride (101-112) mmol/L Chloride 111 H (98-107) mmol/L Carbon Dioxide 17 L (21-32) mmol/L POC Total CO2 (24-31) mmol/L Anion Gap 12.0 H (3-11) POC Anion Gap (16-25) mmol/L POC BUN (7-18) mg/dl BUN 16 (7-18) mg/dl Creatinine 1.77 H (0.6-1.4) mg/dl POC Creatinine (0.6-1.3) mg/dl Est Cr Clr Drug Dosing 38.3 ml/min Est GFR ( Amer) 44.1 Est GFR (Non-Af Amer) 38.1 BUN/Creatinine Ratio 8.9 L (10-20) Glucose 133 H (70-99) mg/dl POC Glucose (other) (70-99) mg/dl Calcium 9.1 (8.5-10.1) mg/dl POC Ioniz Calcium Dirk (1.12-1.32) mmol/l Total Bilirubin 1.6 H (0.2-1) mg/dl AST 48 H (15-37) U/L ALT 26 (12-78) U/L Alkaline Phosphatase 107 (45-117) U/L Troponin I < 0.015 (0-0.045) ng/ml Total Protein 7.6 (6.4-8.2) gm/dl Albumin 3.0 L (3.4-5.0) gm/dl Globulin 4.6 H (2.5-4.0) gm/dl Albumin/Globulin Ratio 0.7 L (0.9-2) Lipase 358 (73-393) U/L 02/26/21 02/26/21 Range/Units 11:38 12:15 WBC (4.8-10.8) K/uL RBC (4.7-6.1) M/uL Hgb (14.0-18.0) g/dL POC Hgb 9.9 L (14.0-18.0) g/dl Hct (42-52) % POC Hct 29 L (42-52) % MCV (80-100) fL MCH (25-34) pg MCHC (32-36) g/dL RDW Std Deviation (36.4-46.3) fL RDW Coeff of Anderson (11.5-14.5) % Plt Count (130-400) K/uL MPV (7.4-10.4) fL Immature Gran % (Auto) % Neut % (Auto) % Lymph % (Auto) % [place] % (Auto) % Eos % (Auto) % Baso % (Auto) % Neut # (Auto) (1.4-6.5) K/uL Lymph # (Auto) (1.2-3.4) K/uL [place] # (Auto) (0.11-0.59) K/uL Eos # (Auto) (0-0.5) K/uL Baso # (Auto) (0-0.2) K/uL Immature Gran # (Auto) (0.00-0.02) K/uL PT 12.9 H INR 1.3 H APTT 26.5 PTT Ratio 1.0 POC Sodium 139 (135-144) mmol/L Sodium (136-145) mmol/L POC Potassium 4.0 (3.3-5.0) mmol/L Potassium (3.5-5.1) mmol/L POC Chloride 112 (101-112) mmol/L Chloride (98-107) mmol/L Carbon Dioxide (21-32) mmol/L POC Total CO2 18 L (24-31) mmol/L Anion Gap (3-11) POC Anion Gap 15.0 L (16-25) mmol/L POC BUN 15 (7-18) mg/dl BUN (7-18) mg/dl Creatinine (0.6-1.4) mg/dl POC Creatinine 2.0 H (0.6-1.3) mg/dl Est Cr Clr Drug Dosing ml/min Est GFR ( Amer) Est GFR (Non-Af Amer) BUN/Creatinine Ratio (10-20) Glucose (70-99) mg/dl POC Glucose (other) 133 H (70-99) mg/dl Calcium (8.5-10.1) mg/dl POC Ioniz Calcium Dirk 1.15 (1.12-1.32) mmol/l Total Bilirubin (0.2-1) mg/dl AST (15-37) U/L ALT (12-78) U/L Alkaline Phosphatase (45-117) U/L Troponin I (0-0.045) ng/ml Total Protein (6.4-8.2) gm/dl Albumin (3.4-5.0) gm/dl Globulin (2.5-4.0) gm/dl Albumin/Globulin Ratio (0.9-2) Lipase (73-393) U/L Administered Medications Discontinued Medications Sodium Chloride (Nss) 500 mls @ 999 mls/hr IV .Q31M STA Stop: 02/26/21 11:16 Last Infusion: 02/26/21 12:27 Dose: 0 mls/hr Documented by: [id number] Admin: 02/26/21 11:27 Dose: 999 mls/hr Documented by: [id number] Ioversol (Ioversol 100ml) 87 ml IV ONCE ONE Stop: 02/26/21 12:54 Last Admin: 02/26/21 12:54 Dose: 87 ml Documented by: [id number] Morphine Sulfate (Morphine Sulfate 4 Mg/Ml 1 Ml Carp\Vial) 4 mg IV Q15M PRN PRN Reason: Pain Stop: 03/12/21 10:45 Last Admin: 02/26/21 13:00 Dose: 4 mg Documented by: [id number] Admin: 02/26/21 11:27 Dose: 4 mg Documented by: [id number] Ondansetron HCl (Ondansetron Inj 2 Mg/Ml 2 Ml Vial) 4 mg IV NOW STA Stop: 02/26/21 10:47 Last Admin: 02/26/21 11:27 Dose: 4 mg Documented by: [id number] Sodium Bicarbonate (Sodium Bicarbonate 650 Mg Tab) 650 mg PO NOW STA Stop: 02/26/21 14:37 Last Admin: 02/26/21 15:37 Dose: 650 mg Documented by: [id number] Imaging Data Radiologist's Impression: Chest X-Ray 02/26/21 10:46 XR chest 1V portable HISTORY: Atypical chest pain COMPARISON: Chest 02/18/2021. FINDINGS: No pneumothorax. No pleural effusions. The lungs are clear. The heart is normal in size. No focal lung consolidations to suggest pneumonia. No evidence for pulmonary edema. IMPRESSION: No acute process. ACT 112: Negative or not required by law. Electronically signed by: Dev Hernandez M.D. 02/26/2021 11:18 AM KUB X-Ray 02/26/21 10:46 KUB HISTORY: Acute lower abdominal pain pain COMPARISON: KUB and CT abdomen and pelvis 02/18/2021 FINDINGS: Mildly distended gas-filled loops of large and small bowel, most pronounced within the central abdomen. Cholecystectomy. Suggested endoscopy clips of the lower pelvis. There is moderate fecal retention of the hepatic flexure. No renal calculi. No ureteral calculi. No pneumoperitoneum or pneumatosis. Degenerative changes of the spine, pelvis and hips. No fracture. IMPRESSION: Gas-filled loops of large and small bowel suggest ileus. ACT 112: Negative or not required by law. The above report was generated using voice recognition software. It may contain grammatical, syntax or spelling errors. Electronically signed by: Cesar Reyna M.D. 02/26/2021 11:32 AM Abdomen/Pelvis CT 02/26/21 11:49 CT SCAN OF THE ABDOMEN AND PELVIS WITH IV CONTRAST CLINICAL HISTORY: Generalized abdominal pain. COMPARISON STUDY: Abdominal CT dated 02/18/2021. Abdominal CT dated 11/14/2020. TECHNIQUE: Following the IV administration of 87 cc of Optiray 320, CT scan of the abdomen and pelvis is performed from the lung bases to the proximal femora. Images are reviewed in the axial, sagittal, and coronal planes. IV contrast was administered without complication. A dose lowering technique was utilized adhering to the principles of ALARA. CT DOSE: 658.57 mGycm FINDINGS: Lung bases: The heart is normal in size and without pericardial effusion. The coronary arteries are densely calcified. Emphysematous change is suspected. There is no airspace consolidation or pleural effusion. A small hiatal hernia is noted with esophageal varices. Liver: The contrast-enhanced liver is cirrhotic in morphology and heterogeneous in attenuation. There is hypertrophy of the left lobe and nodularity of the surface contour. There is no intrahepatic biliary ductal dilatation. There is nonocclusive thrombus within the superior mesenteric vein (axial image #161) and within the main portal vein (axial image #136). This extends into the hepatic hilum (axial image #118). The hepatic veins are patent. Gallbladder: Surgically absent noting clips in the gallbladder fossa. Spleen: The spleen is enlarged measuring 14.1 cm in length. There are perisplenic varices with evidence of a splenorenal shunt. Pancreas: Unremarkable. Adrenal glands: Unremarkable. Kidneys: The contrast enhanced kidneys are atrophic and without hydronephrosis. The kidneys enhance symmetrically. A 1.3 cm cyst is noted on the left. Abdominal vasculature: There is moderate to advanced atherosclerotic calcification and ectasia of the abdominal aorta. Bowel: The small bowel and colon are normal in course and caliber. The rectal wall is thickened and heterogeneous with perirectal inflammation. There are perirectal varices. Metallic foreign bodies/clips are again seen in the rectum. A duodenal diverticulum is noted. The appendix is well-visualized and normal. Peritoneum: There is a moderate volume of abdominopelvic ascites. No intraperitoneal free air is seen. Lymphadenopathy: None. Pelvic viscera: The prostate gland is mildly enlarged and heterogeneous noting median lobe hypertrophy. The bladder wall is thickened and trabeculated indicating chronic outlet obstruction. Small bladder diverticula are noted. Ascitic fluid was contained within a left inguinal hernia. Skeletal structures: The skeletal structures are osteopenic. There is moderate lumbosacral spondylosis. No lytic or blastic lesions are seen. IMPRESSION: 1. No significant change from 02/18/2021. 2. Cirrhotic liver morphology. 3. A moderate volume of abdominopelvic ascites, splenomegaly, esophageal varices, and a splenorenal shunt indicate portal hypertension. 4. Findings of rectal wall thickening, perirectal inflammation, perirectal varices, and presumed rectal surgical clips are similar to previous. These findings could related to portal hypertension or could represent a nonspecific proctitis and clinical correlation will be required. 5. 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 6. Emphysema. 7. Additional findings as above. ACT 112: Negative or not required by law. Electronically signed by: Titi Jara M.D. 02/26/2021 1:26 PM Discharge Plan Visit Data Chief Complaint: Abdominal Pain ED Provider: Jonh Karimi Discharge Problem: Abdominal pain, Abdominal ascites Patient Disposition: Admitted As Inpatient Condition: Good Discharge Instructions Interventions: ED Discharge Assessment Last Done: 02/26/21 16:10 Discharge Problem: Abdominal pain Qualifiers: Abdominal location: generalized Qualified Code(s): R10.84 - Generalized abdom inal pain Abdominal ascites Qualifiers: Ascites type: other type Qualified Code(s): R18.8 - Other ascites
--- NOTE | 2021-02-26 11:19 | XRay Report ---
XR chest 1V portable HISTORY: Atypical chest pain COMPARISON: Chest 02/18/2021. FINDINGS: No pneumothorax. No pleural effusions. The lungs are clear. The heart is normal in size. No focal lung consolidations to suggest pneumonia. No evidence for pulmonary edema. IMPRESSION: No acute process. ACT 112: Negative or not required by law. Electronically signed by: Dev Hernandez M.D. 02/26/2021 11:18 AM
[2021-02-26] MEDS: MoRPHine SULFATE 4 MG/ML 1 ML CARP\\VIAL IV PRN ×2 (11:27→13:00)
--- NOTE | 2021-02-26 11:33 | XRay Report ---
KUB HISTORY: Acute lower abdominal pain pain COMPARISON: KUB and CT abdomen and pelvis 02/18/2021 FINDINGS: Mildly distended gas-filled loops of large and small bowel, most pronounced within the cent ral abdomen. Cholecystectomy. Suggested endoscopy clips of the lower pelvis. There is moderate fecal retention of the hepatic flexure. No renal calculi. No ureteral calculi. No pneumoperitoneum or pneum atosis. Degenerative changes of the spine, pelvis and hips. No fracture. IMPRESSION: Gas-filled loops of large and small bowel suggest ileus. ACT 112: Negative or not required by law. The above report was generated using voice recognition software. It may contain grammatical, syntax o r spelling errors. Electronically signed by: Cesar Reyna M.D. 02/26/2021 11:32 AM
[2021-02-26 11:43] LABS: Basophils # (auto) 0.03 K/uL (0-0.2); Basophils % (auto) 0.6 %; Eosinophils # (auto) 0.27 K/uL (0-0.5); Eosinophils % (auto) 5.2 %; Hematocrit (blood only) 29.5 % (42-52); Hemoglobin 9.9 g/dL (14.0-18.0); Immature Granulocytes # (auto) 0.02 K/uL (0.00-0.02); Immature Granulocytes % (auto) 0.4 %; Lymphocytes # (auto) 0.64 K/uL (1.2-3.4); Lymphocytes % (auto) 12.4 %; Mean Corpuscular Hemoglobin 30.3 pg (25-34); Mean Corpuscular Hgb Conc 33.6 g/dL (32-36); Mean Corpuscular Volume 90.2 fL (80-100); Mean Platelet Volume 10.8 fL (7.4-10.4); Monocytes # (auto) 0.54 K/uL (0.11-0.59); Monocytes % (auto) 10.5 %; Neutrophils # (auto) 3.66 K/uL (1.4-6.5); Neutrophils % (auto) 70.9 %; Platelet Count 109 K/uL (130-400); RDW Standard Deviation 62.5 fL (36.4-46.3); Red Blood Count 3.27 M/uL (4.7-6.1); White Blood Count 5.16 K/uL (4.8-10.8)
[2021-02-26 11:56] LABS: iSTAT Hemoglobin 9.9 g/dl (14.0-18.0); iSTAT Ionized Calcium 1.15 mmol/l (1.12-1.32)
[2021-02-26 11:59] LABS: Alanine Aminotransferase 26 U/L (12-78); Aspartate Aminotransferase 48 U/L (15-37); BUN Creatinine Ratio 8.9 (10-20); Blood Urea Nitrogen 16 mg/dl (7-18); Calcium 9.1 mg/dl (8.5-10.1); Carbon Dioxide 17 mmol/L (21-32); Chloride 111 mmol/L (98-107); Creatinine Clr Calc Pharmacy 38.3 ml/min; Est GFR (African American) 44.1; Est GFR (Non-African American) 38.1; Glucose 133 mg/dl (70-99); Lipase 358 U/L (73-393); Potassium 3.9 mmol/L (3.5-5.1); Sodium 140 mmol/L (136-145)
[2021-02-26 12:04] LABS: Albumin Globulin Ratio 0.7 (0.9-2); Alkaline Phosphatase 107 U/L (45-117); Bilirubin,Total 1.6 mg/dl (0.2-1); Globulin 4.6 gm/dl (2.5-4.0); Total Protein 7.6 gm/dl (6.4-8.2); Troponin I < 0.015 ng/ml (0-0.045)
[2021-02-26 12:43] LABS: INR 1.3 (0.9-1.1); Partial Thromboplastin Time 26.5 Seconds (21.0-31.0); Prothrombin Time 12.9 Seconds (9.0-12.0)
[2021-02-26] MEDS ORDERED: OPTIRAY 320 100ml IV ONE (12:53)
--- NOTE | 2021-02-26 13:27 | CT Scan Report ---
CT SCAN OF THE ABDOMEN AND PELVIS WITH IV CONTRAST CLINICAL HISTORY: Generalized abdominal pain. COMPARISON STUDY: Abdominal CT dated 02/18/2021. Abdominal CT dated 11/14/2020. TECHNIQUE: Following the IV administration of 87 cc of Optiray 320, CT scan of the abdomen and pelvi s is performed from the lung bases to the proximal femora. Images are reviewed in the axial, sagittal , and coronal planes. IV contrast was administered without complication. A dose lowering technique wa s utilized adhering to the principles of ALARA. CT DOSE: 658.57 mGycm FINDINGS: Lung bases: The heart is normal in size and without pericardial effusion. The coronary arteries are d ensely calcified. Emphysematous change is suspected. There is no airspace consolidation or pleural ef fusion. A small hiatal hernia is noted with esophageal varices. Liver: The contrast-enhanced liver is cirrhotic in morphology and heterogeneous in attenuation. There is hypertrophy of the left lobe and nodularity of the surface contour. There is no intrahepatic bili juan ductal dilatation. There is nonocclusive thrombus within the superior mesenteric vein (axial imag e #161) and within the main portal vein (axial image #136). This extends into the hepatic hilum (axia l image #118). The hepatic veins are patent. Gallbladder: Surgically absent noting clips in the gallbladder fossa. Spleen: The spleen is enlarged measuring 14.1 cm in length. There are perisplenic varices with eviden ce of a splenorenal shunt. Pancreas: Unremarkable. Adrenal glands: Unremarkable. Kidneys: The contrast enhanced kidneys are atrophic and without hydronephrosis. The kidneys enhance s ymmetrically. A 1.3 cm cyst is noted on the left. Abdominal vasculature: There is moderate to advanced atherosclerotic calcification and ectasia of the abdominal aorta. Bowel: The small bowel and colon are normal in course and caliber. The rectal wall is thickened and h eterogeneous with perirectal inflammation. There are perirectal varices. Metallic foreign bodies/clip s are again seen in the rectum. A duodenal diverticulum is noted. The appendix is well-visualized an d normal. Peritoneum: There is a moderate volume of abdominopelvic ascites. No intraperitoneal free air is seen . Lymphadenopathy: None. Pelvic viscera: The prostate gland is mildly enlarged and heterogeneous noting median lobe hypertroph y. The bladder wall is thickened and trabeculated indicating chronic outlet obstruction. Small bladde r diverticula are noted. Ascitic fluid was contained within a left inguinal hernia. Skeletal structures: The skeletal structures are osteopenic. There is moderate lumbosacral spondylosi s. No lytic or blastic lesions are seen. IMPRESSION: 1. No significant change from 02/18/2021. 2. Cirrhotic liver morphology. 3. A moderate volume of abdominopelvic ascites, splenomegaly, esophageal varices, and a splenorenal s irving indicate portal hypertension. 4. Findings of rectal wall thickening, perirectal inflammation, perirectal varices, and presumed rect al surgical clips are similar to previous. These findings could related to portal hypertension or cou ld represent a nonspecific proctitis and clinical correlation will be required. 5. Nonocclusive thrombus within the superior mesenteric vein and the main portal vein is similar to 1 01/15/2020 examination. 6. Emphysema. 7. Additional findings as above. ACT 112: Negative or not required by law. Electronically signed by: Titi Jara M.D. 02/26/2021 1:26 PM
--- NOTE | 2021-02-26 14:25 | History & Physical Report ---
Date of Service February 26, 2021 Assessment & Plan (1) Abdominal pain: Unclear etiology: Lactate 1.9 therefore less likely ischemic Proctitis noted on prior CT. Although he was also treated with antibiotics during his last admission for sepsis - blood and peritoneal fluid cultures were ultimately negative. History of Crohn's disease although no inflammatory lesions seen on colonoscopy on Dec 27. Recent history of colonic angiectasias treated with argon plasma coagulation in late December - suspect this is the cause of his proctitis as above Given recent history will place on observation status overnight however pain much improved since coming to the ER Consult GI for further advice. (2) CAD (coronary artery disease): No antiplatelets due to recent GI bleed. Continue metoprolol tartrate. (3) COPD (chronic obstructive pulmonary disease): Continue Symbicort or hospital formulary equivalent (4) Liver cirrhosis: Continue lactulose, rifaximin, spironolactone (5) Crohn's disease: Not noticed on recent colonoscopy (6) Portal vein thrombosis: On no anticoagulation secondary to recent GI bleeds Admission and Anticipated Discharge Date Admission Date: February 26, 2021 History of Present Illness Chief Complaint: Abdominal pain Primary Care Provider: Osmany Molina MD Alfredo Willis is a 70-year-old male with esophageal varices, colonic ectasia and liver cirrhosis who presents to the ER with acute onset abdominal pain. The patient reports having sudden onset abdominal pain [facility]. Not related to any bowel movement. Severity 3/10 currently, 10/10 at worst (at his doctor's and when he first came to the ER. Coming and going intermittently like cramping. He is otherwise feeling well at his baseline mentation. No black or blood in stool. No nausea or vomiting. He has a complex recent medical history which is somewhat fragmented by being hospitalized in different institutions and [facility] He was hospitalized from Jan 06 to February 13, 2021 due to acute GI bleed requiring ICU admission. He underwent colonoscopy 10 days prior to this admission and bleed was coming from bleeding ulceration. s/p 5 units packed RBCs and 1 unit FFP. He was rehospitalized with from February 17- due to u nresponsiveness and was diagnosed with hepatic encephalopathy and made a dramatic improvement with lactulose and rifaximin. In the ER Hgb 9.9 from prior 9.4 therefore no bleeding suspected. UA not in fective appearing. CT A/P showed rectal wall thickening but given recent procedures this is not surprising, moderate ascites and stable nonocclusive thrombus (similar to CT 11/14/2020). Allergies Allergy/AdvReac Type Severity Reaction Status Date / Time fentanyl AdvReac Severe WENT Verified 02/26/21 10:53 CRAZY, HALLUCINATIONS, BIZARRE BEHAVIOR Home Medications Medication Instructions Recorded Confirmed Type Spiriva Respimat 2 puff INHALATION QAM 08/14/20 02/26/21 History cyanocobalamin (vitamin B-12) 500 mcg PO QAM 08/14/20 02/26/21 History [Vitamin B-12] ferrous sulfate 325 mg PO QAM 08/14/20 02/26/21 History finasteride [Proscar] 5 mg PO QAM 08/14/20 02/26/21 History folic acid 1 mg PO QAM 08/14/20 02/26/21 History tamsulosin 0.4 mg PO QAM 08/14/20 02/26/21 History atorvastatin 20 mg PO QAM 08/23/20 02/26/21 History budesonide-formoterol 2 puff INHALATION BID 08/23/20 02/26/21 History magnesium oxide 420 mg PO QAM 08/23/20 02/26/21 History melatonin 3 mg PO HS PRN 08/23/20 02/26/21 History multivitamin with minerals 1 tab PO QAM 08/23/20 02/26/21 History [Multiple Vitamin-Minerals] docusate sodium [Colace] 100 mg PO BID #60 cap 11/14/20 02/26/21 Rx furosemide 20 mg PO BID 30 Days #60 tab 01/17/21 02/26/21 Rx spironolactone 100 mg PO QAM 30 Days #30 tab 01/17/21 02/26/21 Rx lactulose 20 g PO BID 30 Days #1800 ml 02/22/21 02/26/21 Rx metoprolol tartrate 25 mg PO BID #60 tab 02/22/21 02/26/21 Rx rifaximin [Xifaxan] 550 mg PO BID #60 tab 02/22/21 02/26/21 Rx sodium bicarbonate 650 mg PO BID #60 tab 02/22/21 02/26/21 Rx cholecalciferol (vitamin D3) 25 mcg PO DAILY 02/26/21 02/26/21 History pantoprazole 40 mg PO BID 02/26/21 02/26/21 History sennosides [senna] 8.6 mg PO HS 02/26/21 02/26/21 History Past Med/Surg History Medical History Acute hypotension Acute kidney injury Acute lower GI bleeding Acute upper gastrointestinal bleeding Aortic aneurysm CAD (coronary artery disease) Follows with [facility] Chronic pain CKD (chronic kidney disease) stage 3, GFR 30-59 ml/min Colitis COPD (chronic obstructive pulmonary disease) Crohn's disease Crushing injury of chest 1970s Depression DM type 2 (diabetes mellitus, type 2) NIDDM Dyslipidemia Esophageal varices Esophageal varices with banding x 3 (most recent approx 1 year ago) Hepatic encephalopathy history of 2019 History of CVA (cerebrovascular accident) approx 6 years ago; no residual History of hepatitis C History of nephrolithiasis History of prostate cancer dx 1 year ago; radiation History of subdural hematoma HTN (hypertension) Malignant neoplasm of prostate Non-alcoholic cirrhosis Peripheral neuropathy POLST (Physician Orders for Life-Sustaining Treatment) Poor historian history obtained from staff member at [facility] and pt Tremor Surgical History H/O inguinal hernia repair left side History of aortic aneurysm repair History of cardiac cath 2017 [facility] History of cholecystectomy History of cystoscopy History of esophageal surgery as an infant History of facial surgery as a child following injury History of hernia repair multiple S/P coronary artery stent placement Family History Other Family history non-contributory Social History Smoking Status: Current every day smoker Tobacco Type: Cigarettes Cigarettes Per Day: 3; Second Hand Exposure: No; Do You Dip or Chew Tobacco: No; Hx Alcohol Use: No Hx Substance Use: No (used over a year ago.) Preferred Language: Montserratian Communication Ability: Effective Iron Miner Required: No Beliefs That Will Affect Care: Spiritual marital status: Single Current Living Situation: [facility] Current Living Situation Comment: [facility]. Feels Safe at Home: Yes Safety Concerns: Feels Safe At This Time Assistive Devices: Walker Review of Systems Review of Systems: All systems reviewed & are unremarkable except as noted in HPI & below Physical Exam Eyes: + anicteric sclerae Neck: trachea midline, no thyromegaly Respiratory: normal respiratory effort, lungs clear to auscultation Cardiovascular: RRR, no murmur, no edema Gastrointestinal (Abdomen): Inspection/Auscultation: + abdomen distended and normal bowel sounds Percussion/Palpation: + abdomen tender (mild lower abdominal pain on palpation) and abdomen soft; no guarding and abdomen not rigid Musculoskeletal: no cyanosis or clubbing, extremities motor strength 5/5 Skin: no rashes, warm and dry Neurologic: moves all extremities and awake; not confused Psychiatric: A+Ox3, euthymic affect Results & Data Results & Data ([facility]) Vital Signs (Past 12 Hours) Vital Signs Temp Pulse Pulse Resp BP BP Pulse Ox 02/26/21 13:47 68 24 107/76 98 02/26/21 13:00 69 21 149/83 H 100 02/26/21 12:00 77 18 155/90 H 97 02/26/21 11:30 62 22 163/84 H 100 02/26/21 11:26 65 10 L 02/26/21 10:35 65 24 100 02/26/21 10:34 36.8 C 60 18 168/83 H 100 02/26/21 10:30 61 22 165/83 H 100 Diagnostic Findings XR chest 1V portable IMPRESSION: No acute process. KUB IMPRESSION: Gas-filled loops of large and small bowel suggest ileus. CT SCAN OF THE ABDOMEN AND PELVIS WITH IV CONTRAST IMPRESSION: 1. No significant change from 02/18/2021. 2. Cirrhotic liver morphology. 3. A moderate volume of abdominopelvic ascites, splenomegaly, esophageal varices, and a splenorenal shunt indicate portal hypertension. 4. Findings of rectal wall thickening, perirectal inflammation, perirectal varices, and presumed rectal surgical clips are similar to previous. These findings could related to portal hypertension or could represent a nonspecific proctitis and clinical correlation will be required. 5. 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 6. Emphysema. 7. Additional findings as above. Medications Administered ER medications given: Morphine 4 mg IV x2 Ondansetron 4 mg IV ECG Rate (beats per minute): 60 Rhythm: normal sinus Findings: + prolonged QT (QTC 506 ms) Comparison ECG Date: from (February 17, 2021) Change: the following changes noted (Premature supraventricular complexes no longer present) Code Status & VTE Plan Code Status DNR/DNI PG Care Time/CCT Total # of Minutes Spent Total Time Spent with Patient: Total time spent is greater than 50% in coordination of care (as documented) at patient's floor/unit and/or counseling patient: Coding Level of Care Code 27842 OBS Care - Level 3 Diagnoses Abdominal pain R10.84 Abdominal location: generalized CAD (coronary artery disease) I25.10 COPD (chronic obstructive pulmonary disease) J44.9 Liver cirrhosis K74.60; R18.8 Ascites presence: with ascites Hepatic cirrhosis type: unspecified hepatic cirrhosis Crohn's disease K50.90 Portal vein thrombosis I81 (1) Liver cirrhosis Ascites presence: with ascites Hepatic cirrhosis type: unspecified hepatic cirrhosis Qualified Code(s): K74.60 - Unspecified cirrhosis of liver; R18.8 - Other ascites (2) Abdominal pain Abdominal location: generalized Qualified Code(s): R10.84 - Generalized abdominal pain
[2021-02-26] MEDS ORDERED: SODIUM BICARBONATE 650 MG TAB PO STA (14:36)
[2021-02-26 15:30] LABS: Influenza A virus by PCR Negative (Neg); Influenza B virus by PCR Negative (Neg); RSV by PCR Negative (Neg); SARS CoV2 RNA(COVID-19) InHosp NEGATIVE (Negative)
[2021-02-26 15:52] LABS: Appearance Urine Clear (Clear); Bilirubin Urine Negative (Negative); Blood Urine Negative (Negative); Color Urine Yellow; Glucose Urine UA Negative (Negative); Ketones Urine Trace (Negative); Leukocyte Esterase Urine Negative (Negative); Nitrite Urine Negative (Negative); Protein Urine Negative (Negative); Specific Gravity Urine 1.031 (1.000-1.030); Urobilinogen Urine Negative (Negative); pH Urine 5.5 (4.5-7.5)
[2021-02-26] MEDS ORDERED: MELATONIN 3 MG TAB PO PRN (16:46)
[2021-02-26] MEDS ORDERED: ONDANSETRON INJ 2 MG/ML 2 ML VIAL IV PRN (16:46)
[2021-02-26] MEDS: PANTOprazole 40 MG TAB PO SCH (20:21)
[2021-02-26] MEDS: METOPROLOL TARTRATE 25 MG TAB PO SCH (20:21)
[2021-02-26] MEDS: rifAXIMin 550 MG TABLET PO SCH (20:21)
[2021-02-26] MEDS: SODIUM BICARBONATE 650 MG TAB PO SCH (20:21)
[2021-02-26] MEDS: DOCUSATE SODIUM 100 MG CAP PO SCH (20:21)
[2021-02-26] MEDS: FUROSEMIDE 20 MG TAB PO SCH (20:21)
[2021-02-26] MEDS: HEPARIN SOD 5,000 UNIT/0.5 ML VIAL SQ SCH (20:22)
[2021-02-26] MEDS: LACTULOSE SYRUP 20 GM/30 ML UDC PO SCH (20:27)
--- NOTE | 2021-02-27 05:56 | Electrocardiogram Report ---
Test Reason : Blood Pressure : / mmHG Vent. Rate : 060 BPM Atrial Rate : 060 BPM P-R Int : 116 ms QRS Dur : 090 ms QT Int : 506 ms P-R-T Axes : 063 045 037 degrees QTc Int : 506 ms Poor data quality, interpretation may be adversely affected Normal sinus rhythm Prolonged QT Abnormal ECG When compared with ECG of 17-FEB-2021 10:07, Premature supraventricular complexes are no longer Present Vent. rate has decreased BY 35 BPM QT has lengthened Confirmed by Saad Griffith ([id number]) on 02/27/2021 5:56:45 AM Referred By: REFERRED SELF Confirmed By:Saad Griffith
--- NOTE | 2021-02-27 08:41 | Gastrointestinal Consultation ---
Date of Consultation February 27, 2021 Assessment & Plan (1) Abdominal pain: (2) Liver cirrhosis: Patient presented to ED with c/o abdominal pain from his PCP at the [facility] yesterday. The patient has a significant history of liver cirrhosis with esophageal varices. Most recent admission due to acute hepatic encephalopathy and prior admission due to life threatening GI bleed. Reviewed case with Dr. Hernandez. Agree with diagnostic paracentesis due to concerns for bacterial peritonitis. Orders have been placed this morning by hospitalist. Recommend IV broad spectrum antibiotic after diagnostic ultrasound completed. GI will continue to follow. Please refer to supervising physician addendum for further recommendations. History of Present Illness Attending Physician: Rolan Dey DO History of Present Illness The patient is a 70-year-old male with PMH of hepatorenal failure, esophageal varicies, CKD III, DM2, HTN, anemia of chronic disease, CAD s/p stent placement, peripheral neuropathy and history of malignant neoplasm of the prostate. Patient was recently admitted from 02/17/2021-02/22/2021 due to acute hepatic encephalopathy and prior to that with life-threatening lower GI bleed from 01/06/2021 - 01/17/2021 with hemoglobin 6.0 and hypotension requiring ICU admission and dialysis. Patient presented from his PCP office at the [facility] to the ED due to lower abdominal pain. Patient was subsequently admitted for further management. 02/26/2021: KUB demonstrated gas-filled loops of large and small bowel suggest ileus. 02/26/2021 CT A/P demonstrated 1. No significant change from 02/18/2021. 2. Cirrhotic liver morphology. 3. A moderate volume of abdominopelvic ascites, splenomegaly, esophageal varices, and a splenorenal shunt indicate portal hypertension. 4. Findings of rectal wall thickening, perirectal inflammation, perirectal varices, and presumed rectal surgical clips are similar to previous. These findings could related to portal hypertension or could represent a nonspecific proctitis and clinical correlation will be required. 5. 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 6. Emphysema. 7. Additional findings per report. 01/06/2021: Colonoscopy notes reviewed, performed by Dr. Estrada, demonstrated a few ulcers in the rectum from previous APC. Used APC 1.2 Liters 20 loja on visible vessel on one of the ulcers with spurting blood from arterial bleeder resulting. Injected 4 ml of 1:10,000 epinephrine and then 2 clips to control bleeding. No bleeding at end of procedure. 12/27/2020: Colonoscopy notes reviewed, performed by Dr. Hernandez, demonstrated a 5 mm polyp was found in the distal ascending colon which was removed. Multiple medium-sized localized angioectasias with stigmata of recent bleeding were found in the distal rectum. Coagulation for hemostasis using argon plasma at 0.3 liters/minute and 20 loja was successful. On exam/interview today, the patient is sitting upright in bed and is alert and oriented. Reports he is feeling better than yesterday. Denies AP, nausea, vomiting at rest. Notes abdominal pain with light palpation. He denies having any black or bloody bowel movements. He denies having any lower extremity swelling. The patient states that he has been compliant with his outpatient medication regimen. The [facility] [place] [facility] [place] [facility] [place]. A home health agency referral was placed at recent discharge to [facility] home health and family hospice for PT/OT. Patient's sister, Juvenal, is the POA. Allergies Allergy/AdvReac Type Severity Reaction Status Date / Time fentanyl AdvReac Severe WENT Verified 02/26/21 10:53 CRAZY, HALLUCINATIONS, BIZARRE BEHAVIOR Home Medications Medication Instructions Recorded Confirmed Type Spiriva Respimat 2 puff INHALATION QAM 08/14/20 02/26/21 History cyanocobalamin (vitamin B-12) 500 mcg PO QAM 08/14/20 02/26/21 History [Vitamin B-12] ferrous sulfate 325 mg PO QAM 08/14/20 02/26/21 History finasteride [Proscar] 5 mg PO QAM 08/14/20 02/26/21 History folic acid 1 mg PO QAM 08/14/20 02/26/21 History tamsulosin 0.4 mg PO QAM 08/14/20 02/26/21 History atorvastatin 20 mg PO QAM 08/23/20 02/26/21 History budesonide-formoterol 2 puff INHALATION BID 08/23/20 02/26/21 History magnesium oxide 420 mg PO QAM 08/23/20 02/26/21 History melatonin 3 mg PO HS PRN 08/23/20 02/26/21 History multivitamin with minerals 1 tab PO QAM 08/23/20 02/26/21 History [Multiple Vitamin-Minerals] docusate sodium [Colace] 100 mg PO BID #60 cap 11/14/20 02/26/21 Rx furosemide 20 mg PO BID 30 Days #60 tab 01/17/21 02/26/21 Rx spironolactone 100 mg PO QAM 30 Days #30 tab 01/17/21 02/26/21 Rx lactulose 20 g PO BID 30 Days #1800 ml 02/22/21 02/26/21 Rx metoprolol tartrate 25 mg PO BID #60 tab 02/22/21 02/26/21 Rx rifaximin [Xifaxan] 550 mg PO BID #60 tab 02/22/21 02/26/21 Rx sodium bicarbonate 650 mg PO BID #60 tab 02/22/21 02/26/21 Rx cholecalciferol (vitamin D3) 25 mcg PO DAILY 02/26/21 02/26/21 History pantoprazole 40 mg PO BID 02/26/21 02/26/21 History sennosides [senna] 8.6 mg PO HS 02/26/21 02/26/21 History Patient History Medical History Acute hypotension Acute kidney injury Acute lower GI bleeding Acute upper gastrointestinal bleeding Aortic aneurysm CAD (coronary artery disease) Follows with [facility] Chronic pain CKD (chronic kidney disease) stage 3, GFR 30-59 ml/min Colitis COPD (chronic obstructive pulmonary disease) Crohn's disease Crushing injury of chest 1970s Depression DM type 2 (diabetes mellitus, type 2) NIDDM Dyslipidemia Esophageal varices Esophageal varices with banding x 3 (most recent approx 1 year ago) Hepatic encephalopathy history of - 2019 History of CVA (cerebrovascular accident) approx 6 years ago; no residual History of hepatitis C History of nephrolithiasis History of prostate cancer dx 1 year ago; radiation History of subdural hematoma HTN (hypertension) Malignant neoplasm of prostate Non-alcoholic cirrhosis Peripheral neuropathy POLST (Physician Orders for Life-Sustaining Treatment) Poor historian history obtained from staff member at [facility] and pt Tremor Surgical History H/O inguinal hernia repair left side History of aortic aneurysm repair History of cardiac cath 2018 [facility] [place] History of cholecystectomy History of cystoscopy History of esophageal surgery as an infant History of facial surgery as a child following injury History of hernia repair multiple S/P coronary artery stent placement Family History Other Family history non-contributory Social History Smoking Status: Current every day smoker Tobacco Type: Cigarettes Cigarettes Per Day: 3; Second Hand Exposure: No; Do You Dip or Chew Tobacco: No; Hx Alcohol Use: No Hx Substance Use: No (used over a year ago.) Preferred Language: Danish Communication Ability: Impaired Ping Pong Table Assembler Required: No Beliefs That Will Affect Care: Spiritual Current Living Situation: Boarding Home Current Living Situation Comment: [facility]. Feels Safe at Home: Yes Safety Concerns: Feels Safe At This Time Assistive Devices: Walker Review of Systems Review of Systems: All systems reviewed & are unremarkable except as noted in Subjective Physical Exam Constitutional: + cachectic; no acute distress Eyes: no conjunctival abnormality Neck: normal visual inspection Respiratory: normal respiratory effort; no respiratory distress and no labored breathing Cardiovascular: Rate/Rhythm: regular rate and regular rhythm Extremities: no edema Gastrointestinal (Abdomen): Inspection/Auscultation: abdomen normal to inspection and normal bowel sounds Percussion/Palpation: + abdomen tender (c/o severe gen pain with light palpation) and + guarding Psychiatric: Orientation: alert Results & Data ([facility]) Vital Signs (Past 12 Hours) Vital Signs Temp Pulse Resp BP BP Pulse Ox 02/27/21 07:02 37 C 59 L 16 105/60 97 02/26/21 23:19 36.8 C 61 17 97/60 L 94 02/26/21 20:20 67 114/70 Laboratory Results - last 24 hr 02/26/21 02/26/21 02/26/21 11:20 11:20 11:20 WBC 5.16 RBC 3.27 L Hgb 9.9 L POC Hgb Hct 29.5 L POC Hct MCV 90.2 MCH 30.3 MCHC 33.6 RDW Std Deviation 62.5 H RDW Coeff of Anderson 19.0 H Plt Count 109 L MPV 10.8 H Immature Gran % (Auto) 0.4 Neut % (Auto) 70.9 Lymph % (Auto) 12.4 Wirt % (Auto) 10.5 Eos % (Auto) 5.2 Baso % (Auto) 0.6 Neut # (Auto) 3.66 Lymph # (Auto) 0.64 L Wirt # (Auto) 0.54 Eos # (Auto) 0.27 Baso # (Auto) 0.03 Immature Gran # (Auto) 0.02 ESR PT Cancelled INR Cancelled APTT Cancelled PTT Ratio Cancelled POC Sodium Sodium 140 POC Potassium Potassium 3.9 POC Chloride Chloride 111 H Carbon Dioxide 17 L POC Total CO2 Anion Gap 12.0 H POC Anion Gap POC BUN BUN 16 Creatinine 1.77 H POC Creatinine Est Cr Clr Drug Dosing 38.3 Est GFR ( Amer) 44.1 Est GFR (Non-Af Amer) 38.1 BUN/Creatinine Ratio 8.9 L Glucose 133 H POC Glucose POC Glucose (other) Lactate Calcium 9.1 POC Ioniz Calcium Dirk Total Bilirubin 1.6 H AST 48 H ALT 26 Alkaline Phosphatase 107 Troponin I < 0.015 C-Reactive Protein Total Protein 7.6 Albumin 3.0 L Globulin 4.6 H Albumin/Globulin Ratio 0.7 L Lipase 358 Urine Color Urine Appearance Urine pH Ur Specific [place] Urine Protein Urine Glucose (UA) Urine Ketones Urine Blood Urine Nitrite Urine Bilirubin Urine Urobilinogen Ur Leukocyte Esterase COVID-19 Eval Order SARS-CoV-2 (PCR) Influenza Type A (PCR) Influenza Type B (PCR) RSV (RT-PCR) 02/26/21 02/26/21 02/26/21 11:38 12:15 14:28 WBC RBC Hgb POC Hgb 9.9 L Hct POC Hct 29 L MCV MCH MCHC RDW Std Deviation RDW Coeff of Anderson Plt Count MPV Immature Gran % (Auto) Neut % (Auto) Lymph % (Auto) Wirt % (Auto) Eos % (Auto) Baso % (Auto) Neut # (Auto) Lymph # (Auto) Wirt # (Auto) Eos # (Auto) Baso # (Auto) Immature Gran # (Auto) ESR PT 12.9 H INR 1.3 H APTT 26.5 PTT Ratio 1.0 POC Sodium 139 Sodium POC Potassium 4.0 Potassium POC Chloride 112 Chloride Carbon Dioxide POC Total CO2 18 L Anion Gap POC Anion Gap 15.0 L POC BUN 15 BUN Creatinine POC Creatinine 2.0 H Est Cr Clr Drug Dosing Est GFR ( Amer) Est GFR (Non-Af Amer) BUN/Creatinine Ratio Glucose POC Glucose POC Glucose (other) 133 H Lactate Calcium POC Ioniz Calcium Dirk 1.15 Total Bilirubin AST ALT Alkaline Phosphatase Troponin I C-Reactive Protein Total Protein Albumin Globulin Albumin/Globulin Ratio Lipase Urine Color Urine Appearance Urine pH Ur Specific [place] Urine Protein Urine Glucose (UA) Urine Ketones Urine Blood Urine Nitrite Urine Bilirubin Urine Urobilinogen Ur Leukocyte Esterase COVID-19 Eval Order CovFluRsv at [facility] SARS-CoV-2 (PCR) Influenza Type A (PCR) Influenza Type B (PCR) RSV (RT-PCR) 02/26/21 02/26/21 02/26/21 14:28 14:43 14:43 WBC RBC Hgb POC Hgb Hct POC Hct MCV MCH MCHC RDW Std Deviation RDW Coeff of Anderson Plt Count MPV Immature Gran % (Auto) Neut % (Auto) Lymph % (Auto) Wirt % (Auto) Eos % (Auto) Baso % (Auto) Neut # (Auto) Lymph # (Auto) Wirt # (Auto) Eos # (Auto) Baso # (Auto) Immature Gran # (Auto) ESR 16 H PT INR APTT PTT Ratio POC Sodium Sodium POC Potassium Potassium POC Chloride Chloride Carbon Dioxide POC Total CO2 Anion Gap POC Anion Gap POC BUN BUN Creatinine POC Creatinine Est Cr Clr Drug Dosing Est GFR ( Amer) Est GFR (Non-Af Amer) BUN/Creatinine Ratio Glucose POC Glucose POC Glucose (other) Lactate 1.9 Calcium POC Ioniz Calcium Dirk Total Bilirubin AST ALT Alkaline Phosphatase Troponin I C-Reactive Protein Total Protein Albumin Globulin Albumin/Globulin Ratio Lipase Urine Color Urine Appearance Urine pH Ur Specific [place] Urine Protein Urine Glucose (UA) Urine Ketones Urine Blood Urine Nitrite Urine Bilirubin Urine Urobilinogen Ur Leukocyte Esterase COVID-19 Eval Order SARS-CoV-2 (PCR) NEGATIVE Influenza Type A (PCR) Negative Influenza Type B (PCR) Negative RSV (RT-PCR) Negative 02/26/21 02/26/21 02/26/21 14:43 15:35 16:55 WBC RBC Hgb POC Hgb Hct POC Hct MCV MCH MCHC RDW Std Deviation RDW Coeff of Anderson Plt Count MPV Immature Gran % (Auto) Neut % (Auto) Lymph % (Auto) Wirt % (Auto) Eos % (Auto) Baso % (Auto) Neut # (Auto) Lymph # (Auto) Wirt # (Auto) Eos # (Auto) Baso # (Auto) Immature Gran # (Auto) ESR PT INR APTT PTT Ratio POC Sodium Sodium POC Potassium Potassium POC Chloride Chloride Carbon Dioxide POC Total CO2 Anion Gap POC Anion Gap POC BUN BUN Creatinine POC Creatinine Est Cr Clr Drug Dosing Est GFR ( Amer) Est GFR (Non-Af Amer) BUN/Creatinine Ratio Glucose POC Glucose 118 H POC Glucose (other) Lactate Calcium POC Ioniz Calcium Dirk Total Bilirubin AST ALT Alkaline Phosphatase Troponin I C-Reactive Protein 1.19 H Total Protein Albumin Globulin Albumin/Globulin Ratio Lipase Urine Color Yellow Urine Appearance Clear Urine pH 5.5 Ur Specific [place] 1.031 H Urine Protein Negative Urine Glucose (UA) Negative Urine Ketones Trace H Urine Blood Negative Urine Nitrite Negative Urine Bilirubin Negative Urine Urobilinogen Negative Ur Leukocyte Esterase Negative COVID-19 Eval Order SARS-CoV-2 (PCR) Influenza Type A (PCR) Influenza Type B (PCR) RSV (RT-PCR) 02/27/21 02/27/21 00:06 05:44 WBC RBC Hgb POC Hgb Hct POC Hct MCV MCH MCHC RDW Std Deviation RDW Coeff of Anderson Plt Count MPV Immature Gran % (Auto) Neut % (Auto) Lymph % (Auto) Wirt % (Auto) Eos % (Auto) Baso % (Auto) Neut # (Auto) Lymph # (Auto) Wirt # (Auto) Eos # (Auto) Baso # (Auto) Immature Gran # (Auto) ESR PT INR APTT PTT Ratio POC Sodium Sodium POC Potassium Potassium POC Chloride Chloride Carbon Dioxide POC Total CO2 Anion Gap POC Anion Gap POC BUN BUN Creatinine POC Creatinine Est Cr Clr Drug Dosing Est GFR ( Amer) Est GFR (Non-Af Amer) BUN/Creatinine Ratio Glucose POC Glucose 105 H 93 POC Glucose (other) Lactate Calcium POC Ioniz Calcium Dirk Total Bilirubin AST ALT Alkaline Phosphatase Troponin I C-Reactive Protein Total Protein Albumin Globulin Albumin/Globulin Ratio Lipase Urine Color Urine Appearance Urine pH Ur Specific [place] Urine Protein Urine Glucose (UA) Urine Ketones Urine Blood Urine Nitrite Urine Bilirubin Urine Urobilinogen Ur Leukocyte Esterase COVID-19 Eval Order SARS-CoV-2 (PCR) Influenza Type A (PCR) Influenza Type B (PCR) RSV (RT-PCR) (1) Abdominal pain Abdominal location: generalized Qualified Code(s): R10.84 - Generalized a bdominal pain (2) Liver cirrhosis Ascites presence: with ascites Hepatic cirrhosis type: unspecified hepatic cirrhosis Qualified Code(s): K74.60 - Unspecified cirrhosis of liver; R18.8 - Other ascites
[2021-02-27] MEDS: FUROSEMIDE 20 MG TAB PO SCH ×2 (09:58→21:16)
[2021-02-27] MEDS: HEPARIN SOD 5,000 UNIT/0.5 ML VIAL SQ SCH ×2 (09:59→21:18)
[2021-02-27] MEDS: METOPROLOL TARTRATE 25 MG TAB PO SCH ×2 (09:59→21:17)
[2021-02-27] MEDS: MAGNESIUM OXIDE 400 MG TAB PO SCH (10:26)
[2021-02-27] MEDS: SODIUM BICARBONATE 650 MG TAB PO SCH ×2 (10:26→21:17)
[2021-02-27] MEDS: FINASTERIDE 5 MG TAB PO SCH (10:26)
[2021-02-27] MEDS: TAMSULOSIN HCL 0.4 MG CAP PO SCH (10:27)
[2021-02-27] MEDS: PANTOprazole 40 MG TAB PO SCH ×2 (10:27→21:15)
[2021-02-27] MEDS: CEROVITE ADV FORMULA TAB PO SCH (10:27)
[2021-02-27] MEDS: ATORVASTATIN 20 MG TAB PO SCH (10:27)
[2021-02-27] MEDS: CHOLECALCIFEROL 1,000 UNITS 25 MCG TAB PO SCH (10:27)
[2021-02-27] MEDS: FOLIC ACID 1 MG TAB PO SCH (10:27)
[2021-02-27] MEDS: CYANOCOBALAMIN 500 MCG TABLET (VITAMIN B-12) PO SCH (10:27)
[2021-02-27] MEDS: FERROUS SULFATE 325 MG TAB PO SCH (10:27)
[2021-02-27] MEDS: FLUTICASONE/VILANTEROL 100/25MCG 14 PUFFS/INHALER INH SCH (10:28)
[2021-02-27] MEDS: DOCUSATE SODIUM 100 MG CAP PO SCH ×2 (10:28→21:16)
[2021-02-27] MEDS: LACTULOSE SYRUP 20 GM/30 ML UDC PO SCH ×2 (10:28→21:15)
[2021-02-27] MEDS: rifAXIMin 550 MG TABLET PO SCH ×2 (10:28→21:16)
[2021-02-27] MEDS: UMECLIDINIUM BROMIDE 62.5MCG/BLISTER 7 PUFFS/INHALER INH SCH (10:28)
--- NOTE | 2021-02-27 10:28 | Hospitalist Progress Note ---
Date of Service February 27, 2021 Assessment & Plan (1) Abdominal pain: Alfredo Willis is a 70 yo male with complex PMHx that includes cirrhosis with ascites and esophogeal varices, recent admission earlier this month for hepatic encephalopathy, hepatitis C, COPD, CKD3 and Crohn's disease who was admitted to [facility] on 02/26/2021 for severe abdominal pain. Abdominal Pain Liver history as stated above with recent admission for hepatic encephalopathy, worsening abdominal pain x5 days, CT showing ileus, diagnostic paracentesis ruling out SBP --> suspect ileus as cause of abdominal pain - abdominal pain significantly improved today - trial of clear liquid diet today, advance as tolerated - PRN Tylenol for pain, avoid narcotic pain medications given ileus - trend CBC daily Liver Cirrhosis/Ascites - MELD score of 17 - diagnostic paracentesis without evidence of SBP, as mentioned above - continue home regimen of Rifaximin, Lactulose, Spironolactone, Furosemide, sodium bicarb COPD - continue home meds CAD - continue Aspirin HTN - continue Lopressor BPH - continue Flomax GERD - continue Protonix FEN/GI: clear liquid diet DVT Prophylaxis: Heparin 5000 units SQ BID Code Status: DNR/DNI Disposition: med/surg (2) Liver cirrhosis: Admission and Anticipated Discharge Date Admission Date: February 26, 2021 Supervising Physician Co-Signing Physician Notes I personally examined the patient and verified all ivy points of history and exam, discussed case, and agree with decision making with Dr Wilkins. By the time I see him his belly is feeling a bit better, and he has been passing a significant amount of gas. May be even feels a little bit hungry. Vitals noted, in general he is awake and alert pleasant no distress. HEENT normocephalic atraumatic mucous membranes moist. Abdomen is soft mildly distended diffusely tender but without guarding/rebound/rigidityand he notes it is less tender than when examined earlier by ms2 and resident Abdominal paindifferential was broad, fortunately peritonitis seems to been ruled out by his very low peritoneal white count. He has no leukocytosis or elevated lactate and has had no hematochezia to suggest any sort of intra- abdominal ischemia. He did show an ileus on CT, and I suspect that this is likely the culprit of his pain, given that it was very intense but is improving as he passes more gas. Possible that the medications initiated to help manage his hepatic encephalopathy/cirrhosis led to GI irritation leading to the current situation. Slowly advance diet, supportive care, will need to reinitiate medications, but may need to do so stepwise. Otherwise as above Subjective No acute events overnight. Patient reports that abdominal pain is significantly improved today in comparison to yesterday. Reports that his pain was gradually worsening after discharge on 02/19 and then severely worsened yesterday, on day of admission. Denies fever/chills, chest pain, palpitations, SOB, N/V. Review of Systems Review of Systems: Pertinent positives and negatives mentioned in HPI. Physical Exam Physical Exam: General: A&Ox3. NAD. Cooperative. HEENT: Atraumatic, normocephalic. Pulm: decreased air entry bilaterally, -wheezes, -rales, -rhonchi. Symmetrical chest rise. No increase work of breathing. No respiratory distress. Cardiac: RRR, -mrg. Radial pulses intact and symmetrical. Abdominal: soft, minimal tenderness to palpation in all four quadrants, mildly distended, NA BS x 4, +fluid wave Results & Data Results & Data ([facility]) Vital Signs (Past 12 Hours) Vital Signs Temp Pulse Resp BP BP Pulse Ox 02/27/21 09:52 64 102/66 02/27/21 07:02 37 C 59 L 16 105/60 97 02/26/21 23:19 36.8 C 61 17 97/60 L 94 Resident Activity Tracking Resident Involvement: Resident Care Provided Care Provided: Adult Hospital Medicine (1) Liver cirrhosis Ascites presence: with ascites Hepatic cirrhosis type: unspecified hepatic cirrhosis Qualified Code(s): K74.60 - Unspecified cirrhosis of liver; R18.8 - Other ascites (2) Abdominal pain Abdominal location: generalized Qualified Code(s): R10.84 - Generalized abdominal pain
[2021-02-27] MEDS: SPIRONOLACTONE 100 MG TAB PO SCH (10:30)
--- NOTE | 2021-02-27 13:22 | Consultation Report ---
DATE OF CONSULTATION: 02/27/2021 Addendum to the consult note by Rae Carney on Alfredo Willis from today: I reviewed the chart, talked to the patient, examined him and reviewed his x-rays and labs. The patient presents with lower abdominal pain after being hospitalized with hepatic encephalopathy recently. The patient was seen at the [facility] and sent to the Emergency Room yesterday due to the abdominal pain. CT shows ascites and on exam, he is tender on the right side and lower abdomen suspicious for spontaneous bacterial peritonitis. The patient is scheduled for a diagnostic paracentesis later today, after which he will be started empirically on broad-spectrum antibiotics such as Zosyn pending the results of the paracentesis. We will continue to follow the patient during his hospital stay.
--- NOTE | 2021-02-27 13:36 | Ultrasound Report ---
ULTRASOUND GUIDED DIAGNOSTIC PARACENTESIS CLINICAL HISTORY: SBP concern COMPARISON STUDY: No previous studies for comparison. PROCEDURE: The risks, benefits, and alternatives to the procedure were discussed with the patient inc luding the risk of bleeding, infection and injury to adjacent structures. The patient agreed to the procedure and informed written consent was obtained. Following real-time ultrasound localization, the skin left lower quadrant was prepped and draped. Following local anesthesia with Xylocaine, the mantilla th paracentesis needle was inserted and 40 cc of straw-colored fluid was removed by vacuum suction. The patient tolerated the procedure well and no immediate complications were evident. IMPRESSION: Ultrasound-guided paracentesis with removal of 40 cc of ascites which was sent to the [facility] for analysis. ACT 112: Negative or not required by law. Electronically signed by: Ta Nash M.D. 02/27/2021 1:35 PM
[2021-02-27 14:10] LABS: Albumin Peritoneal Fluid < 0.6 g/dl; Glucose Peritoneal Fluid 94 mg/dl
[2021-02-27 14:25] LABS: Amylase Peritoneal Fluid 30 U/L; LDH Peritoneal Fluid 59 U/L; Lipase Peritoneal Fluid 212 U/L; Total Protein Peritoneal Fluid 1.3 g/dl
[2021-02-27 14:37] LABS: Appearance Peritoneal Fluid CLEAR; Basophils, Fluid 0 %; Color Peritoneal Fluid YELLOW; Eosinophils, Fluid 0 %; Lymphocytes, Fluid 41 %; Mono,Macrophage,Mesothelial 50 %; Neutrophils, Fluid 9 %; RBC Peritoneal Fluid (A) < 3000 /uL; WBC Peritoneal Fluid (A) 141 /ul (0-300)
--- NOTE | 2021-02-27 17:45 | Medical Student Progress Note ---
Date of Service February 27, 2021 Assessment & Plan (1) Abdominal pain: Patient has a history of liver cirrhosis with ascites, and recent hospitalizations for hepatic encephalopathy and lower GI bleed presenting with acute abdominal pain. CT showed ileus, otherwise unchanged from recent imaging. Primary cause is most likely ileus in the context of new liver medication regimen. Initially considered Bacterial peritonitis in the context of ascitesdiagnostic paracentesis negative. Ischemialactate 1.9 therefore less likely. To treat ileusclose observation and clear liquid diet. Progress diet as tolerated. Recommend limiting the use of narcotics. Continue home medications. Poor Intake Consider nutrition consult to help the patient plan for a better diet in his current living situation. He mentions frequently skipping meals, and says that he was not able to eat for two days prior to admission. This is concerning considering that his condition is already poor. Abdominal location: generalized Qualified Code(s): R10.84 - Generalized abdominal pain Admission and Anticipated Discharge Date Admission Date: February 26, 2021 Supervising Attestation I personally examined the patient and verified all ivy points of history and exam, discussed case, and agree with decision making with Eddi LAWSON. Subjective Discharged 4 days after hepatic encephalopathy, and has a history of life- threatening lower GI bleed for which he was hospitalized from January 06 to January 17. Presented to ED yesterday with acute abdominal pain radiating to back, chest, and groin. No significant overnight events. This morning the patient feels significantly bettersays he is not in pain at rest. He is hungry but does understand that he will need to wait until after his GI procedure. He mentions that he was not able to eat at home for the past two days because of his GI touchiness and says that the residence he was does not provide him the type of food that he feels able to eat. His past pain radiated to his back, chest (particularly on inspiration), and groin. Today he has diffuse abdominal tenderness with occasional twinges that are more severe. The pain no longer radiates to his chest or back. He has been passing gas, but has not had a bowel movement. Review of Systems Review of Systems: All systems reviewed & are unremarkable except as noted in Subjective Physical Exam Constitutional: Alert and oriented, cooperative. Respiratory: Normal respiratory effort. Wheeze on exhalation. Cardiovascular: Normal rate and rhythm. Gastrointestinal (Abdomen): Some fluid appreciated. Diffusely tender to palpation, most severe in the lower right quadrant. Guarding. Results & Data ([facility]) Vital Signs (Past 12 Hours) Vital Signs Temp Pulse Resp BP Pulse Ox 02/27/21 13:56 36.5 C 74 16 101/64 94 02/27/21 09:52 64 102/66 02/27/21 07:02 37 C 59 L 16 105/60 97
--- NOTE | 2021-02-27 20:16 | Billing Data ---
Date of Service February 27, 2021 Coding Level of Care Code 51619 Subseq Obs Care Lvl 3
[2021-02-28] MEDS: HYDROmorphone INJ 0.5 MG/0.5 ML SYR IV PRN ×3 (01:09→08:09)
[2021-02-28 06:53] LABS: Basophils # (auto) 0.02 K/uL (0-0.2); Basophils % (auto) 0.3 %; Eosinophils # (auto) 0.24 K/uL (0-0.5); Eosinophils % (auto) 3.8 %; Hematocrit (blood only) 27.4 % (42-52); Hemoglobin 9.1 g/dL (14.0-18.0); Immature Granulocytes # (auto) 0.02 K/uL (0.00-0.02); Immature Granulocytes % (auto) 0.3 %; Lymphocytes # (auto) 0.55 K/uL (1.2-3.4); Lymphocytes % (auto) 8.6 %; Mean Corpuscular Hgb Conc 33.2 g/dL (32-36); Mean Corpuscular Volume 90.4 fL (80-100); Mean Platelet Volume 10.7 fL (7.4-10.4); Monocytes # (auto) 0.57 K/uL (0.11-0.59); Monocytes % (auto) 8.9 %; Neutrophils # (auto) 4.98 K/uL (1.4-6.5); Neutrophils % (auto) 78.1 %; Platelet Count 103 K/uL (130-400); RDW Standard Deviation 63.7 fL (36.4-46.3); Red Blood Count 3.03 M/uL (4.7-6.1); White Blood Count 6.38 K/uL (4.8-10.8)
[2021-02-28 07:19] LABS: Albumin Level 2.6 gm/dl (3.4-5.0); BUN Creatinine Ratio 9.7 (10-20); Calcium 8.3 mg/dl (8.5-10.1); Creatinine Clr Calc Pharmacy 40.6 ml/min; Est GFR (African American) 41.6; Est GFR (Non-African American) 35.9; Magnesium 2.1 mg/dl (1.8-2.4); Potassium 4.1 mmol/L (3.5-5.1)
[2021-02-28 07:27] LABS: Albumin Globulin Ratio 0.6 (0.9-2); Bilirubin,Total 1.6 mg/dl (0.2-1); Globulin 4.4 gm/dl (2.5-4.0); Phosphorus 3.3 mg/dl (2.5-4.9)
--- NOTE | 2021-02-28 08:49 | Gastroenterology Progress Note ---
Date of Service February 28, 2021 Assessment & Plan (1) Abdominal pain: (2) Abdominal ascites: (3) Liver cirrhosis: The patient has a significant history of liver cirrhosis with esophageal varices. Presented to the emergency department 02/26/2021 due to abdominal pain. Most recent admissions due to acute hepatic encephalopathy and lower GI bleed. Diagnostic paracentesis was obtained 02/27/2021 and is negative for infection with cultures pending. This morning the patient is experiencing increased bilateral lower abdominal discomfort. He had demonstrated ileus on KUB 2 days ago. This is likely source of pain. Urinalysis was negative 02/26/2021. Diet was advanced to clears yesterday, may need to resume NPO if symptoms do not improve. Please refer to supervising physician addendum for further recommendations. Admission and Anticipated Discharge Date Admission Date: February 26, 2021 Subjective The patient is sleeping but awakens with verbal stimuli this morning. States he is having a great deal of lower abdominal pain bilaterally this morning. Denies vomiting. Notes increased nausea. Asking for pain medication and to use the restroom. Abdominal guarding and does not want his abdomen assessed due to pain. Review of Systems Review of Systems: All systems reviewed & are unremarkable except as noted in HPI & below Physical Exam Constitutional: + cachectic; no acute distress Eyes: no conjunctival abnormality Neck: normal visual inspection Respiratory: normal respiratory effort; no respiratory distress and no labored breathing Cardiovascular: Rate/Rhythm: regular rate and regular rhythm Extremities: no edema Gastrointestinal (Abdomen): Inspection/Auscultation: abdomen normal to inspection Percussion/Palpation: + abdomen tender (c/o severe gen pain with light palpation) and + guarding Psychiatric: Orientation: alert Results & Data ([facility]) Vital Signs (Past 12 Hours) Vital Signs Temp Pulse Resp BP BP Pulse Ox 02/28/21 07:13 36.5 C 81 16 111/71 94 02/27/21 23:30 37.1 C 61 16 92/56 L 94 Laboratory Results - last 24 hr 02/27/21 02/27/21 02/27/21 12:17 17:58 20:27 WBC RBC Hgb Hct MCV MCH MCHC RDW Std Deviation RDW Coeff of Anderson Plt Count MPV Immature Gran % (Auto) Neut % (Auto) Lymph % (Auto) [place] % (Auto) Eos % (Auto) Baso % (Auto) Neut # (Auto) Lymph # (Auto) [place] # (Auto) Eos # (Auto) Baso # (Auto) Immature Gran # (Auto) Sodium Potassium Chloride Carbon Dioxide Anion Gap BUN Creatinine Est Cr Clr Drug Dosing Est GFR ( Amer) Est GFR (Non-Af Amer) BUN/Creatinine Ratio Glucose POC Glucose 96 103 H 132 H Calcium Phosphorus Magnesium Total Bilirubin AST ALT Alkaline Phosphatase Total Protein Albumin Globulin Albumin/Globulin Ratio Fluid Neutrophils % Fluid Lymphocytes % Fluid Eosinophils % Fluid Basophils % Fluid Meso/Macro/[place] % Fluid Comment Peritoneal Color Peritoneal Appearance Peritoneal WBC Peritoneal RBC Peritoneal Other Cells Peritoneal Tot Protein Peritoneal Albumin Peritoneal LDH Peritoneal Glucose Peritoneal Amylase Peritoneal Lipase 02/27/21 02/27/21 02/27/21 Unknown Unknown Unknown WBC RBC Hgb Hct MCV MCH MCHC RDW Std Deviation RDW Coeff of Anderson Plt Count MPV Immature Gran % (Auto) Neut % (Auto) Lymph % (Auto) [place] % (Auto) Eos % (Auto) Baso % (Auto) Neut # (Auto) Lymph # (Auto) [place] # (Auto) Eos # (Auto) Baso # (Auto) Immature Gran # (Auto) Sodium Potassium Chloride Carbon Dioxide Anion Gap BUN Creatinine Est Cr Clr Drug Dosing Est GFR ( Amer) Est GFR (Non-Af Amer) BUN/Creatinine Ratio Glucose POC Glucose Calcium Phosphorus Magnesium Total Bilirubin AST ALT Alkaline Phosphatase Total Protein Albumin Globulin Albumin/Globulin Ratio Fluid Neutrophils % 9 Fluid Lymphocytes % 41 Fluid Eosinophils % 0 Fluid Basophils % 0 Fluid Meso/Macro/[place] % 50 Fluid Comment Peritoneal Color YELLOW Peritoneal Appearance CLEAR Peritoneal WBC 141 Peritoneal RBC < 3000 Peritoneal Other Cells 0.0 Peritoneal Tot Protein 1.3 Peritoneal Albumin < 0.6 Peritoneal LDH 59 Peritoneal Glucose 94 Peritoneal Amylase 30 Cancelled Peritoneal Lipase 212 02/27/21 02/27/21 02/27/21 Unknown Unknown Unknown WBC RBC Hgb Hct MCV MCH MCHC RDW Std Deviation RDW Coeff of Anderson Plt Count MPV Immature Gran % (Auto) Neut % (Auto) Lymph % (Auto) [place] % (Auto) Eos % (Auto) Baso % (Auto) Neut # (Auto) Lymph # (Auto) [place] # (Auto) Eos # (Auto) Baso # (Auto) Immature Gran # (Auto) Sodium Potassium Chloride Carbon Dioxide Anion Gap BUN Creatinine Est Cr Clr Drug Dosing Est GFR ( Amer) Est GFR (Non-Af Amer) BUN/Creatinine Ratio Glucose POC Glucose Calcium Phosphorus Magnesium Total Bilirubin AST ALT Alkaline Phosphatase Total Protein Albumin Globulin Albumin/Globulin Ratio Fluid Neutrophils % Fluid Lymphocytes % Fluid Eosinophils % Fluid Basophils % Fluid Meso/Macro/[place] % Fluid Comment Peritoneal Color Peritoneal Appearance Peritoneal WBC Peritoneal RBC Peritoneal Other Cells Peritoneal Tot Protein Peritoneal Albumin Peritoneal LDH Cancelled Peritoneal Glucose Cancelled Peritoneal Amylase Peritoneal Lipase Cancelled 02/27/21 02/28/21 02/28/21 Unknown 06:22 06:22 WBC 6.38 RBC 3.03 L Hgb 9.1 L Hct 27.4 L MCV 90.4 MCH 30.0 MCHC 33.2 RDW Std Deviation 63.7 H RDW Coeff of Anderson 19.0 H Plt Count 103 L MPV 10.7 H Immature Gran % (Auto) 0.3 Neut % (Auto) 78.1 Lymph % (Auto) 8.6 [place] % (Auto) 8.9 Eos % (Auto) 3.8 Baso % (Auto) 0.3 Neut # (Auto) 4.98 Lymph # (Auto) 0.55 L [place] # (Auto) 0.57 Eos # (Auto) 0.24 Baso # (Auto) 0.02 Immature Gran # (Auto) 0.02 Sodium 140 Potassium 4.1 Chloride 114 H Carbon Dioxide 19 L Anion Gap 7.0 BUN 18 Creatinine 1.86 H Est Cr Clr Drug Dosing 40.6 Est GFR ( Amer) 41.6 Est GFR (Non-Af Amer) 35.9 BUN/Creatinine Ratio 9.7 L Glucose 120 H POC Glucose Calcium 8.3 L Phosphorus 3.3 Magnesium 2.1 Total Bilirubin 1.6 H AST 59 H ALT 30 Alkaline Phosphatase 96 Total Protein 7.0 Albumin 2.6 L Globulin 4.4 H Albumin/Globulin Ratio 0.6 L Fluid Neutrophils % Fluid Lymphocytes % Fluid Eosinophils % Fluid Basophils % Fluid Meso/Macro/[place] % Fluid Comment Peritoneal Color Peritoneal Appearance Peritoneal WBC Peritoneal RBC Peritoneal Other Cells Peritoneal Tot Protein Cancelled Peritoneal Albumin Peritoneal LDH Peritoneal Glucose Peritoneal Amylase Peritoneal Lipase 02/28/21 06:25 WBC RBC Hgb Hct MCV MCH MCHC RDW Std Deviation RDW Coeff of Anderson Plt Count MPV Immature Gran % (Auto) Neut % (Auto) Lymph % (Auto) [place] % (Auto) Eos % (Auto) Baso % (Auto) Neut # (Auto) Lymph # (Auto) [place] # (Auto) Eos # (Auto) Baso # (Auto) Immature Gran # (Auto) Sodium Potassium Chloride Carbon Dioxide Anion Gap BUN Creatinine Est Cr Clr Drug Dosing Est GFR ( Amer) Est GFR (Non-Af Amer) BUN/Creatinine Ratio Glucose POC Glucose 129 H Calcium Phosphorus Magnesium Total Bilirubin AST ALT Alkaline Phosphatase Total Protein Albumin Globulin Albumin/Globulin Ratio Fluid Neutrophils % Fluid Lymphocytes % Fluid Eosinophils % Fluid Basophils % Fluid Meso/Macro/[place] % Fluid Comment Peritoneal Color Peritoneal Appearance Peritoneal WBC Peritoneal RBC Peritoneal Other Cells Peritoneal Tot Protein Peritoneal Albumin Peritoneal LDH Peritoneal Glucose Peritoneal Amylase Peritoneal Lipase (1) Abdominal pain Abdominal location: generalized Qualified Code(s): R10.84 - Generalized abdominal pain (2) Abdominal ascites Ascites type: other type Qualified Code(s): R18.8 - Other ascites (3) Liver cirrhosis Ascites presence: with ascites Hepatic cirrhosis type: unspecified hepatic cirrhosis Qualified Code(s): K74.60 - Unspecified cirrhosis of liver; R18.8 - Other ascites
[2021-02-28] MEDS ORDERED: SOD PHOSPHATE/SOD BIPHOSPHATE ENEMA 132 ML BTL PR STA (10:08)
--- NOTE | 2021-02-28 10:08 | XRay Report ---
KUB HISTORY: Acute generalized abdominal pain with ileus Abdominal pain, ileus COMPARISON: CT abdomen and pelvis and KUB radiograph 02/26/2021 FINDINGS: Unchanged mild gaseous distention of the colon. No bowel obstruction. Surgical clips in the rectum redemonstrated. Mild fecal retention. Cholecystectomy. No renal calculi. No ureteral calculi . No pneumoperitoneum or pneumatosis. No fracture. IMPRESSION: Unchanged gaseous distention of the colon. No pneumoperitoneum. ACT 112: Negative or not required by law. The above report was generated using voice recognition software. It may contain grammatical, syntax o r spelling errors. Electronically signed by: Cesar Reyna M.D. 02/28/2021 10:07 AM
--- NOTE | 2021-02-28 10:12 | Hospitalist Progress Note ---
Date of Service February 28, 2021 Assessment & Plan (1) Abdominal pain: Alfredo Willis is a 70 yo male with complex PMHx that includes cirrhosis with ascites and esophogeal varices, recent admission earlier this month for hepatic encephalopathy, hepatitis C, COPD, CKD3 and Crohn's disease who was admitted to [facility] on 02/26/2021 for severe abdominal pain. Hepatic Encephalopathy AMS in context of cirrhosis, recent admission for hepatic encephalopathy, and no recent BMs, Ammonia 39.4 --> hepatic encephalopathy - lactulose enema x1 this AM followed by Q8H scheduled - once tolerating liquids (see below), re-start Rifaximin/Lactulose PO - follow closely for changes in mental status Abdominal Pain Liver history as stated above with recent admission for hepatic encephalopathy, worsening abdominal pain x5 days, CT showing ileus, diagnostic paracentesis ruling out SBP --> suspect ileus as cause of abdominal pain - abdominal pain significantly worsened today since advanced to clears, minimal- no output via BMs - repeat KUB today showing stable presence of ileus - Surgery consulted: recommends medical management for suspected ileus - NPO no exceptions for now - lactulose enemas Q8H as mentioned above - strict I/Os - PRN Tylenol for pain, attempt to avoid narcotic pain medications given ileus - trend CBC daily Liver Cirrhosis/Ascites - MELD score of 17 - diagnostic paracentesis without evidence of SBP, as mentioned above - continue home regimen of Rifaximin, Lactulose, Spironolactone, Furosemide, sodium bicarb Compensated Metabolic Acidosis ABG 02/28: pH 7.42, pCO2 22, HCO3 14 --> suspect CKD/high ammonium state as cause of acidosis, with respiratory compensation - supplemental O2 via NC as needed COPD - continue home meds CAD - continue Aspirin HTN - continue Lopressor BPH - continue Flomax GERD - continue Protonix FEN/GI: clear liquid diet DVT Prophylaxis: Heparin 5000 units SQ BID Code Status: DNR/DNI Disposition: med/surg Admission and Anticipated Discharge Date Admission Date: February 26, 2021 Supervising Physician Co-Signing Physician Notes I personally examined the patient and verified all ivy points of history and exam, discussed case, and agree with decision making with Dr Wilkins. more out of it. belly pain ongoing. breathing ok. Vitals noted, in general he is awake but fairly slow to respond, mostly one word answers, fairly tremulous. HEENT normocephalic atraumatic mucous membranes moist. Cardio regular no rubs or gallops, lungs clear to auscultation bilaterally good air entry no rales rhonchi or wheezes good effort. Abdomen is soft mildly distended diffusely tender but but better than yesterday. No guarding no rebound no rigidity. Abdominal painseems to be ileus/motility driven. Given this not entirely clear, will ask surgery for an opinion on etiology of the pain as well. Altered mental statusclinically appears consistent with hepatic encephalopathy. This also would fit given that we had hold his lactulose at first while he was n.p.o. from his abdominal pain. Lactulose enemas, serial exams, time. Otherwise as above Subjective This morning (~09:00) the patient appeared to be in much more pain and was complaining of worsening generalized abdominal pain. Had a very small BM overnight but no other BMs during this hospitalization. Also had difficulty following commands and was only able to maintain full attention during abdominal exam due to pain. Only A+O to self. On repeat assessment later in the morning (~11:00) the patient appeared more somnolent and weak, and was unable to follow commands or maintain attention. Unable to say anything besides for yes and no. Appeared to be in similar amount of abdominal pain. Review of Systems Review of Systems: Pertinent positives and negatives mentioned in HPI. Physical Exam Physical Exam: General: Not alert/oriented, mild distress, somnolent. HEENT: Atraumatic, normocephalic. Pulm: decreased air entry bilaterally, -wheezes, -rales, -rhonchi. Symmetrical chest rise. No increase work of breathing. No respiratory distress. Cardiac: RRR, -mrg. Radial pulses intact and symmetrical. Abdominal: soft, severe tenderness to palpation in all four quadrants, some guarding present, moderately distended, NA BS x 4, +fluid wave, no rebound Neuro: due to somnolence and difficulty following commands, exam is extremely limited. However does not appear to have any focal abnormalities Results & Data Results & Data ([facility]) Vital Signs (Past 12 Hours) Vital Signs Temp Pulse Resp BP BP Pulse Ox 02/28/21 07:13 36.5 C 81 16 111/71 94 02/27/21 23:30 37.1 C 61 16 92/56 L 94 Resident Activity Tracking Resident Involvement: Resident Care Provided Care Provided: Adult Hospital Medicine (1) Abdominal pain Abdominal location: generalized Qualified Code(s): R10.84 - Generalized abdominal pain
--- NOTE | 2021-02-28 11:12 | XRay Report ---
XR chest 1V portable HISTORY: 70 years-old Male coarse lung sounds bilaterally acute hypoxia COMPARISON: Chest radiograph 02/26/2021 TECHNIQUE: Portable AP view of the chest FINDINGS: Cardiac mediastinal and hilar silhouettes are within normal limits. No pneumothorax, pleural effusion , airspace consolidation or overt pulmonary edema. Healed chronic right-sided rib fractures. Degenera tive changes of the shoulders and spine. IMPRESSION: No acute process. ACT 112: Negative or not required by law. The above report was generated using voice recognition software. It may contain grammatical, syntax o r spelling errors. Electronically signed by: Cesar Reyna M.D. 02/28/2021 11:11 AM
[2021-02-28] MEDS: LACTULOSE 200 GM, WATER, STERILE IRRIG 700 ML, BARCODE IDENTIFIER 1 EA PR SCH ×2 (11:20→18:16)
[2021-02-28] MEDS: SPIRONOLACTONE 100 MG TAB PO SCH (11:45)
[2021-02-28] MEDS: FOLIC ACID 1 MG TAB PO SCH (11:46)
[2021-02-28] MEDS: DOCUSATE SODIUM 100 MG CAP PO SCH ×2 (11:46→20:47)
[2021-02-28] MEDS: FERROUS SULFATE 325 MG TAB PO SCH (11:46)
[2021-02-28] MEDS: FUROSEMIDE 20 MG TAB PO SCH ×2 (11:46→20:47)
[2021-02-28] MEDS: TAMSULOSIN HCL 0.4 MG CAP PO SCH (11:46)
[2021-02-28] MEDS: LACTULOSE SYRUP 20 GM/30 ML UDC PO SCH ×2 (11:46→18:17)
[2021-02-28] MEDS: FINASTERIDE 5 MG TAB PO SCH (11:47)
[2021-02-28] MEDS: METOPROLOL TARTRATE 25 MG TAB PO SCH ×2 (11:47→20:48)
[2021-02-28] MEDS: ATORVASTATIN 20 MG TAB PO SCH (11:47)
[2021-02-28] MEDS: MAGNESIUM OXIDE 400 MG TAB PO SCH (11:47)
[2021-02-28] MEDS: CEROVITE ADV FORMULA TAB PO SCH (11:47)
[2021-02-28] MEDS: rifAXIMin 550 MG TABLET PO SCH ×2 (11:48→20:48)
[2021-02-28] MEDS: SODIUM BICARBONATE 650 MG TAB PO SCH ×2 (11:48→20:48)
[2021-02-28] MEDS: CHOLECALCIFEROL 1,000 UNITS 25 MCG TAB PO SCH (11:48)
[2021-02-28] MEDS: CYANOCOBALAMIN 500 MCG TABLET (VITAMIN B-12) PO SCH (11:48)
[2021-02-28] MEDS: PANTOprazole 40 MG TAB PO SCH ×2 (11:48→20:49)
[2021-02-28 11:53] LABS: Base Excess ABG -9.1 mEq/L (-9-1.8); HCO3 ABG 14 mmol/L (19-24); Oxygen Saturation ABG 98.2 % (90-95); PCO2 ABG 22 mmHg (35-46); PO2 ABG 107 mmHg (80-95); pH ABG 7.42 (7.35-7.45)
[2021-02-28 12:00] LABS: Allen Test Pos (Pos)
[2021-02-28] MEDS: FLUTICASONE/VILANTEROL 100/25MCG 14 PUFFS/INHALER INH SCH (12:17)
[2021-02-28] MEDS: UMECLIDINIUM BROMIDE 62.5MCG/BLISTER 7 PUFFS/INHALER INH SCH (12:17)
[2021-02-28] MEDS: HEPARIN SOD 5,000 UNIT/0.5 ML VIAL SQ SCH ×2 (12:18→21:43)
--- NOTE | 2021-02-28 12:28 | Surgery Consultation ---
Date of Consultation February 28, 2021 Assessment & Plan (1) Abdominal pain: No acute abdominal findings, likely ileus. CT and KUB reviewed. Patient was seen with Dr. Holguin. Will continue to follow. as above. no acute surgical indications. likely has large bowel inertia secondary to chronic medical problems. will continue to follow. History of Present Illness Attending Physician: Rolan Dey DO History of Present Illness 70 y/o male with history including hep C/cirrhosis, Crohn's, CKD, DM admitted two ays ago for abdominal pain. Has been seen by GI, had paracentesis for SBP which was negative. Is on cler liquid diet. He is not as alert as he was earlier this morning according to nursing, ammonia is elevated and enema was given. Allergies Allergy/AdvReac Type Severity Reaction Status Date / Time fentanyl AdvReac Severe WENT Verified 02/26/21 10:53 CRAZY, HALLUCINATIONS, BIZARRE BEHAVIOR Home Medications Medication Instructions Recorded Confirmed Type Spiriva Respimat 2 puff INHALATION QAM 08/14/20 02/26/21 History cyanocobalamin (vitamin B-12) 500 mcg PO QAM 08/14/20 02/26/21 History [Vitamin B-12] ferrous sulfate 325 mg PO QAM 08/14/20 02/26/21 History finasteride [Proscar] 5 mg PO QAM 08/14/20 02/26/21 History folic acid 1 mg PO QAM 08/14/20 02/26/21 History tamsulosin 0.4 mg PO QAM 08/14/20 02/26/21 History atorvastatin 20 mg PO QAM 08/23/20 02/26/21 History budesonide-formoterol 2 puff INHALATION BID 08/23/20 02/26/21 History magnesium oxide 420 mg PO QAM 08/23/20 02/26/21 History melatonin 3 mg PO HS PRN 08/23/20 02/26/21 History multivitamin with minerals 1 tab PO QAM 08/23/20 02/26/21 History [Multiple Vitamin-Minerals] docusate sodium [Colace] 100 mg PO BID #60 cap 11/14/20 02/26/21 Rx furosemide 20 mg PO BID 30 Days #60 tab 01/17/21 02/26/21 Rx spironolactone 100 mg PO QAM 30 Days #30 tab 03/03/21 04/12/21 Rx lactulose 20 g PO BID 30 Days #1800 ml 02/22/21 02/26/21 Rx metoprolol tartrate 25 mg PO BID #60 tab 02/22/21 02/26/21 Rx rifaximin [Xifaxan] 550 mg PO BID #60 tab 02/22/21 02/26/21 Rx sodium bicarbonate 650 mg PO BID #60 tab 02/22/21 02/26/21 Rx cholecalciferol (vitamin D3) 25 mcg PO DAILY 02/26/21 02/26/21 History pantoprazole 40 mg PO BID 02/26/21 02/26/21 History sennosides [senna] 8.6 mg PO HS 02/26/21 02/26/21 History Patient History Medical History Acute hypotension Acute kidney injury Acute lower GI bleeding Acute upper gastrointestinal bleeding Aortic aneurysm CAD (coronary artery disease) Follows with [facility] Chronic pain CKD (chronic kidney disease) stage 3, GFR 30-59 ml/min Colitis COPD (chronic obstructive pulmonary disease) Crohn's disease Crushing injury of chest 1970s Depression DM type 2 (diabetes mellitus, type 2) NIDDM Dyslipidemia Esophageal varices Esophageal varices with banding x 3 (most recent approx 1 year ago) Hepatic encephalopathy history of - 2019 History of CVA (cerebrovascular accident) approx 6 years ago; no residual History of hepatitis C History of nephrolithiasis History of prostate cancer dx 1 year ago; radiation History of subdural hematoma HTN (hypertension) Malignant neoplasm of prostate Non-alcoholic cirrhosis Peripheral neuropathy POLST (Physician Orders for Life-Sustaining Treatment) Poor historian history obtained from staff member at [facility] and pt Tremor Surgical History H/O inguinal hernia repair left side History of aortic aneurysm repair History of cardiac cath 2017 [facility] History of cholecystectomy History of cystoscopy History of esophageal surgery as an History of facial surgery as a child following injury History of hernia repair multiple S/P coronary artery stent placement Family History Other Family history non-contributory Social History Smoking Status: Current every day smoker Tobacco Type: Cigarettes Cigarettes Per Day: 3; Second Hand Exposure: No; Do You Dip or Chew Tobacco: No; Hx Alcohol Use: No Hx Substance Use: No (used over a year ago.) Preferred Language: Grenadian Communication Ability: Effective Sales Service Technician Required: No Beliefs That Will Affect Care: Spiritual marital status: Single Current Living Situation: Boarding Home Current Living Situation Comment: [facility]. Feels Safe at Home: Yes Safety Concerns: Feels Safe At This Time Assistive Devices: Walker Review of Systems Review of Systems: Unobtainable due to cognitive status Physical Exam Constitutional: + frail appearing Gastrointestinal (Abdomen): Inspection/Auscultation: + abdominal surgical scar (right subcostal, midline) Percussion/Palpation: + abdomen tender (mild) and abdomen soft Results & Data ([facility]) Vital Signs (Past 12 Hours) Vital Signs Temp Pulse Resp BP Pulse Ox 02/28/21 10:35 108 H 24 133/79 98 02/28/21 07:13 36.5 C 81 16 111/71 94 PG Care Time/CCT Total # of Minutes Spent Total Time Spent with Patient: Total time spent is greater than 50% in coordination of care (as documented) at patient's floor/unit and/or counseling patient: Coding Level of Care Code 25282 Initial Inpt Care Lvl 3 Diagnoses Abdominal pain R10.84 Abdominal location: generalized (1) Abdominal pain Abdominal location: generalized Qualified Code(s): R10.84 - Generalized abdominal pain
--- NOTE | 2021-02-28 13:14 | Medical Student Progress Note ---
Date of Service February 28, 2021 Assessment & Plan (1) Abdominal pain: Abdominal painIleus Given intractability of pain, consider causes of ileus other than changes from liver medication regimen. -Patient has portal hypertension and thrombus which may be contributing. -Proctitis in the context of colonic angiectasias treated with argon plasma coagulation. However this does not appear significantly changed from the previous CT, and patient is tolerating enemas. -Crohn's disease is present in history but recent colonoscopy showed no inflammatory lesions. Surgical consult placed. Patient is not moving much stool yet. Start tid lactulose enemas to help him clear the ileus. Regress patient from clear fluids to NPO. ConfusionHepatic encephalopathy Patient has a recent history of hepatic encephalopathy and elevated ammonia, which is the most likely cause of his confusion. Continue to monitor for infection and possible COPD exacerbation as other possible causes of confusion. Abdominal location: generalized Qualified Code(s): R10.84 - Generalized abdominal pain Admission and Anticipated Discharge Date Admission Date: February 26, 2021 Supervising Attestation I personally examined the patient and verified all iyv points of history and exam, discussed case, and agree with decision making with Eddi Huntley MS2 Subjective 70M with a history of liver disease with ascites on day two of hospitalization for abdominal ileus. Last night he had clear fluid dinner and afterwards his pain began to increase. Overnight he had dilautid twice. He is still passing gas and this morning passed a small amount of stool. This morning he feels significantly worse. His pain comes in waves. He finds it difficult to focus and only had a few sips of his breakfast. He is oriented to self and place, but not to time. He struggles to focus on questions due to pain. His hand tremor is worse than usual and distressing him. He has no shortness of breath and no chest pain. He has some nausea. His abdomen is more distended and firmer this morning. Diffuse pain more severe on right side. Rebound test was negative. Tremor was consistent with an essential tremor rather than asterixis, but it was more pronounced than yesterday. Repeat abdominal x-ray was ordered to rule out bowel perforation. Upon return from x-ray patients condition was significantly worse. He was unable to follow commands and minimally responsive to questioning. Patients O2 saturation dropped to 80% briefly while being moved, then returned to 95%. Patient was given a nasal cannula with 2L O2 and blood gases were ord ered. Review of Systems Review of Systems: All systems reviewed & are unremarkable except as noted in Subjective Results & Data ([facility]) Vital Signs (Past 12 Hours) Vital Signs Temp Pulse Resp BP Pulse Ox 02/28/21 12:45 37.5 C 103 H 20 123/79 96 02/28/21 10:35 108 H 24 133/79 98 02/28/21 07:13 36.5 C 81 16 111/71 94 Creatinine slightly elevated 1.86, Hgb low 9.1 White count 6.38 still within normal range Cultures from paracentesis still pending. WBCs from paracentesis 141 Ammonia levels taken this morning are elevated at 39.4. Blood gas showed low CO2 at 22 and high O2 at 107. Imaging: Repeat abdominal x-ray showed no signs of bowel perforation.
--- NOTE | 2021-02-28 16:01 | Progress Notes ---
DATE: 02/28/2021 ADDENDUM Addendum to the progress note on the patient by Rae Carney earlier today. I spoke to the patient and examined him and reviewed x-rays and labs. The patient is having increased abdominal pain today and distention and his x-ray shows increased abdominal gas through the small intestine and all the way through the colon into the rectum consistent with an ileus. He is tender throughout the abdomen to light palpation. If the patient fails to improve overnight, I would recommend nasogastric decompression. If he does show signs of improvement, we may want to give him a laxative such as magnesium citrate to help get the intestinal tract moving again.
[2021-02-28] MEDS: LACTATED RINGER'S 1,000 ML IV SCH (18:11)
--- NOTE | 2021-02-28 19:38 | Billing Data ---
Date of Service February 28, 2021 Coding Level of Care Code 82192 Subseq Hosp Care Lvl 3
[2021-03-01] MEDS: LACTULOSE 200 GM, WATER, STERILE IRRIG 700 ML, BARCODE IDENTIFIER 1 EA PR SCH (03:00)
[2021-03-01] MEDS: HYDROmorphone INJ 0.5 MG/0.5 ML SYR IV PRN ×2 (04:21→21:21)
[2021-03-01] MEDS: LACTATED RINGER'S 1,000 ML IV SCH ×2 (04:55→17:03)
[2021-03-01 07:44] LABS: Hematocrit (blood only) 23.6 % (42-52); Hemoglobin 7.9 g/dL (14.0-18.0); Mean Corpuscular Hemoglobin 30.3 pg (25-34); Mean Corpuscular Hgb Conc 33.5 g/dL (32-36); Mean Corpuscular Volume 90.4 fL (80-100); RDW Coefficient of Variation 19.1 % (11.5-14.5); RDW Standard Deviation 63.7 fL (36.4-46.3); Red Blood Count 2.61 M/uL (4.7-6.1); White Blood Count 9.93 K/uL (4.8-10.8)
[2021-03-01] MEDS: FOLIC ACID 1 MG TAB PO SCH (07:54)
[2021-03-01] MEDS: CHOLECALCIFEROL 1,000 UNITS 25 MCG TAB PO SCH (07:54)
[2021-03-01] MEDS: LACTULOSE SYRUP 20 GM/30 ML UDC PO SCH ×2 (07:54→21:00)
[2021-03-01] MEDS: FINASTERIDE 5 MG TAB PO SCH (07:55)
[2021-03-01] MEDS: SPIRONOLACTONE 100 MG TAB PO SCH (07:56)
[2021-03-01] MEDS: CYANOCOBALAMIN 500 MCG TABLET (VITAMIN B-12) PO SCH (07:56)
[2021-03-01] MEDS: ATORVASTATIN 20 MG TAB PO SCH (07:57)
[2021-03-01] MEDS: TAMSULOSIN HCL 0.4 MG CAP PO SCH (07:57)
[2021-03-01] MEDS: MAGNESIUM OXIDE 400 MG TAB PO SCH (07:57)
[2021-03-01] MEDS: FERROUS SULFATE 325 MG TAB PO SCH (07:57)
[2021-03-01] MEDS: METOPROLOL TARTRATE 25 MG TAB PO SCH ×2 (07:58→21:03)
[2021-03-01] MEDS: CEROVITE ADV FORMULA TAB PO SCH (07:58)
[2021-03-01] MEDS: SODIUM BICARBONATE 650 MG TAB PO SCH ×2 (07:59→21:04)
[2021-03-01] MEDS: FLUTICASONE/VILANTEROL 100/25MCG 14 PUFFS/INHALER INH SCH (08:00)
[2021-03-01] MEDS: PANTOprazole 40 MG TAB PO SCH ×2 (08:00→21:05)
[2021-03-01] MEDS: UMECLIDINIUM BROMIDE 62.5MCG/BLISTER 7 PUFFS/INHALER INH SCH (08:00)
[2021-03-01] MEDS: rifAXIMin 550 MG TABLET PO SCH ×2 (08:00→21:02)
[2021-03-01] MEDS: FUROSEMIDE 20 MG TAB PO SCH (08:01)
[2021-03-01] MEDS: DOCUSATE SODIUM 100 MG CAP PO SCH ×2 (08:01→21:00)
[2021-03-01 08:10] LABS: Mean Platelet Volume 11.2 fL (7.4-10.4); Platelet Count 75 K/uL (130-400)
[2021-03-01 08:11] LABS: Basophils # (auto) 0.01 K/uL (0-0.2); Basophils % (auto) 0.1 %; Eosinophils # (auto) 0.01 K/uL (0-0.5); Eosinophils % (auto) 0.1 %; Immature Granulocytes # (auto) 0.02 K/uL (0.00-0.02); Immature Granulocytes % (auto) 0.2 %; Lymphocytes # (auto) 0.44 K/uL (1.2-3.4); Lymphocytes % (auto) 4.4 %; Monocytes # (auto) 0.64 K/uL (0.11-0.59); Monocytes % (auto) 6.4 %; Neutrophils # (auto) 8.81 K/uL (1.4-6.5); Neutrophils % (auto) 88.8 %; Platelet Estimate Decreased (Normal)
[2021-03-01 08:18] LABS: Albumin Level 2.2 gm/dl (3.4-5.0); BUN Creatinine Ratio 11.6 (10-20); Calcium 8.1 mg/dl (8.5-10.1); Creatinine Clr Calc Pharmacy 33.4 ml/min; Est GFR (African American) 32.8; Est GFR (Non-African American) 28.3
[2021-03-01 08:23] LABS: Albumin Globulin Ratio 0.6 (0.9-2); Bilirubin,Total 0.9 mg/dl (0.2-1); Globulin 3.6 gm/dl (2.5-4.0); Phosphorus 3.3 mg/dl (2.5-4.9); Total Protein 5.8 gm/dl (6.4-8.2)
--- NOTE | 2021-03-01 09:00 | Gastroenterology Progress Note ---
Date of Service March 01, 2021 Assessment & Plan (1) Abdominal pain: (2) Liver cirrhosis: The patient has a significant history of liver cirrhosis with esophageal varices. Presented to the emergency department 02/26/2021 due to abdominal pain. Most recent admissions due to acute hepatic encephalopathy and lower GI bleed. Diagnostic paracentesis was obtained 02/27/2021 and is negative for infection with cultures negative to date. X-ray yesterday again consistent with an ileus. Patient has been evaluated by surgical services. Reports improved abdominal pain. States he is feeling much better this morning and would like to eat. Spoke to resident who plans to advance diet to clear liquids this morning. Please refer to supervising physician addendum for further recommendations. Admission and Anticipated Discharge Date Admission Date: February 28, 2021 Supervising Physician Co-Signing Physician Notes I have seen and examined the patient. I agree with note above by JUNIOR Youssef except as noted below. HPI Pt states lower abd pain better today and tolerating liquid diet today PE Abdomen pos, soft, LLQ guarding but no rebound A/P lower abd pain---Unclear etiolgoy but improved. CT not explanatory and no SBP. ? some constipation but patient taking lactulose chronically. Continue supportive care. Recommend advance to low sodium solid diet. cirrhosis hepatic encephalopathy--memtally alert at present, Continue lactulose Subjective Patient sitting upright in bed and conversant. Yesterday had a change in mental status. This is improved today. He reports that abdominal pain is greatly improved this morning. Notes some mild abdominal discomfort. Denies nausea or vomiting. Feels hungry this morning. Would like to eat. Lactulose enemas were started yesterday and productive of stool. Review of Systems Review of Systems: All systems reviewed & are unremarkable except as noted in Subjective Physical Exam Constitutional: + cachectic; no acute distress Eyes: no conjunctival abnormality Neck: normal visual inspection Respiratory: normal respiratory effort; no respiratory distress and no labored breathing Cardiovascular: Rate/Rhythm: regular rate and regular rhythm Extremities: no edema Gastrointestinal (Abdomen): Inspection/Auscultation: abdomen normal to inspection and normal bowel sounds Percussion/Palpation: + abdomen tender (mild generalized pain with palpation) and abdomen soft Psychiatric: Orientation: alert Results & Data ([facility]) Vital Signs (Past 12 Hours) Vital Signs Temp Pulse Resp BP BP Pulse Ox 03/01/21 07:00 36.7 C 77 16 101/67 94 03/01/21 04:15 36.3 C L 94 H 14 137/4 L 99 02/28/21 23:43 36.9 C 86 16 100/69 93 Laboratory Results - last 24 hr 02/28/21 02/28/21 02/28/21 09:35 10:29 11:15 WBC RBC Hgb Hct MCV MCH MCHC RDW Std Deviation RDW Coeff of Anderson Plt Count MPV Immature Gran % (Auto) Neut % (Auto) Lymph % (Auto) [place] % (Auto) Eos % (Auto) Baso % (Auto) Neut # (Auto) Lymph # (Auto) [place] # (Auto) Eos # (Auto) Baso # (Auto) Immature Gran # (Auto) Platelet Estimate ABG pH Cancelled ABG pCO2 Cancelled ABG pO2 Cancelled ABG HCO3 Cancelled ABG O2 Saturation Cancelled ABG Base Excess Cancelled [place] Test Cancelled Barometric Pressure Cancelled Oxygen Given Cancelled Sodium Potassium Chloride Carbon Dioxide Anion Gap BUN Creatinine Est Cr Clr Drug Dosing Est GFR ( Amer) Est GFR (Non-Af Amer) BUN/Creatinine Ratio Glucose POC Glucose 142 H Calcium Phosphorus Magnesium Total Bilirubin AST ALT Alkaline Phosphatase Ammonia 39.4 H Total Protein Albumin Globulin Albumin/Globulin Ratio 02/28/21 02/28/21 02/28/21 11:38 12:10 19:08 WBC RBC Hgb Hct MCV MCH MCHC RDW Std Deviation RDW Coeff of Anderson Plt Count MPV Immature Gran % (Auto) Neut % (Auto) Lymph % (Auto) [place] % (Auto) Eos % (Auto) Baso % (Auto) Neut # (Auto) Lymph # (Auto) [place] # (Auto) Eos # (Auto) Baso # (Auto) Immature Gran # (Auto) Platelet Estimate ABG pH 7.42 ABG pCO2 22 L ABG pO2 107 H ABG HCO3 14 L ABG O2 Saturation 98.2 H ABG Base Excess -9.1 L [place] Test Pos Barometric Pressure 733.2 Oxygen Given 4L Sodium Potassium Chloride Carbon Dioxide Anion Gap BUN Creatinine Est Cr Clr Drug Dosing Est GFR ( Amer) Est GFR (Non-Af Amer) BUN/Creatinine Ratio Glucose POC Glucose 116 H 144 H Calcium Phosphorus Magnesium Total Bilirubin AST ALT Alkaline Phosphatase Ammonia Total Protein Albumin Globulin Albumin/Globulin Ratio 03/01/21 03/01/21 03/01/21 01:47 06:10 07:08 WBC 9.93 RBC 2.61 L Hgb 7.9 L Hct 23.6 L MCV 90.4 MCH 30.3 MCHC 33.5 RDW Std Deviation 63.7 H RDW Coeff of Anderson 19.1 H Plt Count 75 L MPV 11.2 H Immature Gran % (Auto) 0.2 Neut % (Auto) 88.8 Lymph % (Auto) 4.4 [place] % (Auto) 6.4 Eos % (Auto) 0.1 Baso % (Auto) 0.1 Neut # (Auto) 8.81 H Lymph # (Auto) 0.44 L [place] # (Auto) 0.64 H Eos # (Auto) 0.01 Baso # (Auto) 0.01 Immature Gran # (Auto) 0.02 Platelet Estimate Decreased L ABG pH ABG pCO2 ABG pO2 ABG HCO3 ABG O2 Saturation ABG Base Excess [place] Test Barometric Pressure Oxygen Given Sodium Potassium Chloride Carbon Dioxide Anion Gap BUN Creatinine Est Cr Clr Drug Dosing Est GFR ( Amer) Est GFR (Non-Af Amer) BUN/Creatinine Ratio Glucose POC Glucose 173 H 134 H Calcium Phosphorus Magnesium Total Bilirubin AST ALT Alkaline Phosphatase Ammonia Total Protein Albumin Globulin Albumin/Globulin Ratio 03/01/21 03/01/21 07:08 07:13 WBC RBC Hgb Hct MCV MCH MCHC RDW Std Deviation RDW Coeff of Anderson Plt Count MPV Immature Gran % (Auto) Neut % (Auto) Lymph % (Auto) [place] % (Auto) Eos % (Auto) Baso % (Auto) Neut # (Auto) Lymph # (Auto) [place] # (Auto) Eos # (Auto) Baso # (Auto) Immature Gran # (Auto) Platelet Estimate ABG pH ABG pCO2 ABG pO2 ABG HCO3 ABG O2 Saturation ABG Base Excess [place] Test Barometric Pressure Oxygen Given Sodium 141 Potassium 4.0 Chloride 114 H Carbon Dioxide 19 L Anion Gap 8.0 BUN 26 H Creatinine 2.26 H D Est Cr Clr Drug Dosing 33.4 Est GFR ( Amer) 32.8 Est GFR (Non-Af Amer) 28.3 BUN/Creatinine Ratio 11.6 Glucose 123 H POC Glucose Calcium 8.1 L Phosphorus 3.3 Magnesium 2.0 Total Bilirubin 0.9 D AST 115 H ALT 46 Alkaline Phosphatase 76 Ammonia 34.1 H Total Protein 5.8 L Albumin 2.2 L Globulin 3.6 Albumin/Globulin Ratio 0.6 L 02/28/2021: KUB was obtained due to complaints of abdominal pain which demonstrated mild gaseous distention of the colon without bowel obstruction noted. Mild fecal retention. Cholecystectomy. (1) Liver cirrhosis Ascites presence: with ascites Hepatic cirrhosis type: unspecified hepatic cirrhosis Qualified Code(s): K74.60 - Unspecified cirrhosis of liver; R18.8 - Other ascites (2) Abdominal pain Abdominal location: generalized Qualified Code(s): R10.84 - Generalized abdominal pain
--- NOTE | 2021-03-01 09:15 | Hospitalist Progress Note ---
Date of Service March 01, 2021 Assessment & Plan (1) Abdominal pain: Alfredo Willis is a 70 yo male with complex PMHx that includes cirrhosis with ascites and esophogeal varices, recent admission earlier this month for hepatic encephalopathy, hepatitis C, COPD, CKD3 and Crohn's disease who was admitted to [facility] on 02/26/2021 for severe abdominal pain. Abdominal Pain Liver history as stated above with recent admission for hepatic encephalopathy, worsening abdominal pain x5 days, CT showing ileus, diagnostic paracentesis ruling out SBP --> suspect ileus as cause of abdominal pain - abdominal pain improved today following enemas and BM x6 - Surgery consulted: recommends medical management for suspected ileus - advanced diet to full liquids today - stopped enemas, continue with PO meds as mentioned below - strict I/Os - PRN Tylenol for pain, attempt to avoid narcotic pain medications given ileus - trend CBC daily Hepatic Encephalopathy, resolving AMS in context of cirrhosis, recent admission for hepatic encephalopathy, and no recent BMs, Ammonia 39.4 --> hepatic encephalopathy - lactulose enema x2 on 02/28 followed by loose BMx6 - stop Lactulose enemas, re-start Rifaximin/Lactulose PO - follow closely for changes in mental status AMMY on CKD - Cr 1.86 --> 2.26 in context of dehydration (NPO, BM x6), suspect pre-renal injury 2/2 this - continue IVFs with LR @90cc/hr - trend BMP daily Chronic Normocytic Anemia - Hgb baseline 8-9, down from 9 --> 7.9 today --> suspect hemodilution (started IVFs yesterday) - trend CBC daily Liver Cirrhosis/Ascites - MELD score of 17 - diagnostic paracentesis without evidence of SBP, as mentioned above - continue home regimen of Rifaximin, Lactulose, Spironolactone, Furosemide, sodium bicarb Non-Anion Gap Metabolic Acidosis ABG 02/28: pH 7.42, pCO2 22, HCO3 14; Anion gap 8.0 --> suspect CKD/high ammonium state as cause of acidosis, with respiratory compensation - suspect chronic, no further evaluation at this time COPD - continue home meds CAD - continue Aspirin HTN - continue Lopressor BPH - continue Flomax GERD - continue Protonix FEN/GI: clear liquid diet DVT Prophylaxis: Heparin 5000 units SQ BID Code Status: DNR/DNI Disposition: med/surg Admission and Anticipated Discharge Date Admission Date: February 28, 2021 Supervising Physician Co-Signing Physician Notes I personally examined the patient and verified all ivy points of history and exam, discussed case, and agree with decision making with Dr Wilkins. feeling better more alert, belly still hurts but better Vitals noted, in general he is awake but fairly slow to respond, mostly one word answers, fairly tremulous. HEENT normocephalic atraumatic mucous membranes moist. Cardio regular no rubs or gallops, lungs clear to auscultation bilaterally good air entry no rales rhonchi or wheezes good effort. Abdomen is soft mildly distended diffusely tender but but better than yesterday. No guarding no rebound no rigidity. Abdominal painseems to be ileus/motility driven. improving. Altered mental statusclinically appears consistent with acute hepatic encephalopathy. This also would fit given that we had hold his lactulose at first while he was n.p.o. from his abdominal pain. improved. lactulose ongoing. Otherwise as above Subjective Had 6 loose, non-bloody BMs yesterday after receiving lactulose enemas. Also had a minor self-limited nose bleed overnight with minimal blood loss. Received Dliaudid x1 overnight for abdominal pain. Mental status significantly improved this morning. A+Ox4. Is hungry and would like to try clears. Reports improved but still moderate generalized abdominal pain. No nausea or vomiting. No fever/chills, chest pain, SOB. Review of Systems Review of Systems: Pertinent positives and negatives mentioned in HPI. Physical Exam Physical Exam: General: A+Ox3, cooperative, NAD HEENT: Atraumatic, normocephalic. Pulm: decreased air entry bilaterally, -wheezes, -rales, -rhonchi. Symmetrical chest rise. No increase work of breathing. No respiratory distress. Cardiac: RRR, -mrg. Radial pulses intact and symmetrical. Abdominal: soft, moderately distended, moderate tenderness to palpation in all quadrants with guarding but no rebound, NA BS x 4, +fluid wave Results & Data Results & Data ([place]) Vital Signs (Past 12 Hours) Vital Signs Temp Pulse Resp BP BP Pulse Ox 03/01/21 07:00 36.7 C 77 16 101/67 94 03/01/21 04:15 36.3 C L 94 H 14 137/4 L 99 02/28/21 23:43 36.9 C 86 16 100/69 93 Resident Activity Tracking Resident Involvement: Resident Care Provided Care Provided: Adult Hospital Medicine (1) Abdominal pain Abdominal location: generalized Qualified Code(s): R10.84 - Generalized abdominal pain
--- NOTE | 2021-03-01 09:47 | Surgery Progress Note ---
Date of Service March 01, 2021 Assessment & Plan (1) Abdominal pain: improved can advance diet as irving as above. doing well. abdominal pain improved. +multiple bm's. no acute surgical issues. will s/o call us if any questions/concerns Admission and Anticipated Discharge Date Admission Date: February 28, 2021 Subjective much less abdominal pain, had clear breakfast, spent several hours last having having multiple BMs in bedpan and toilet Physical Exam Gastrointestinal (Abdomen): Inspection/Auscultation: + abdomen distended (less) Percussion/Palpation: abdomen soft; abdomen nontender Results & Data ([facility]) Vital Signs (Past 12 Hours) Vital Signs Temp Pulse Resp BP BP Pulse Ox 03/01/21 07:00 36.7 C 77 16 101/67 94 03/01/21 04:15 36.3 C L 94 H 14 137/4 L 99 02/28/21 23:43 36.9 C 86 16 100/69 93 PG Care Time/CCT Total # of Minutes Spent Total Time Spent with Patient: Total time spent is greater than 50% in coordination of care (as documented) at patient's floor/unit and/or counseling patient: Coding Level of Care Code 85048 Subseq Hosp Care Lvl 2 Diagnoses Abdominal pain R10.84 Abdominal location: generalized (1) Abdominal pain Abdominal location: generalized Qualified Code(s): R10.84 - Generalized abdominal pain
[2021-03-01] MEDS: HEPARIN SOD 5,000 UNIT/0.5 ML VIAL SQ SCH ×2 (09:59→21:01)
--- NOTE | 2021-03-01 15:47 | Medical Student Progress Note ---
Date of Service March 01, 2021 Assessment & Plan (1) Abdominal pain: Hepatic encephalopathy: Patients condition is significantly improved today, he is A&Ox3. Recommend stopping lactulose enemas and instead giving lactulose orally. Abdominal ileus: Pain is less severe today and patient has had several bowel movements. Surgery agrees that patient does not currently need nasogastric decompression. Progress to clear liquid diet. Continue to give laxatives orally. Proctitis: Proctitis in the context of colonic angiectasias treated with argon plasma coagulationno change noted from previous CT. However patient is not tolerating the enemas well, which raises concern that the proctitis may be contributing to his abdominal pain. Perform rectal exam to assess. Chronic kidney disease: Creatinine and BUN elevated from baseline, most likely due to limited fluid intake over the past few days. Continue IV fluids. Begin clear liquid diet. Continue to monitor kidney function. Anemia: Hemoglobin decreased to 7.9 today following administration of IV fluids. Patient is asymptomatic, making dilutional anemia likely. Continue to monitor CBC Abdominal location: generalized Qualified Code(s): R10.84 - Generalized abdominal pain Admission and Anticipated Discharge Date Admission Date: February 28, 2021 Supervising Attestation I personally examined the patient and verified all ivy points of history and exam, discussed case, and agree with decision making with Eddi Huntley MS2 Subjective 70M with a history of liver disease with ascites on day three of hospitalization for abdominal ileus and hepatic encephalopathy. Beginning yesterday morning the patients condition worsened, with increasing pain, tremulousness, and confusion. Ammonia was elevated, prompting treatment with lactulose enemas for hepatic encephalopathy. And laxatives. By evening his condition was beginning to improve. He had multiple bowel movements overnight. This morning the patient is feeling much better, speaking in full sentences and having no difficulty concentrating. He reports his pain as a 2/10. He has no shortness of breath or nausea. Review of Systems Review of Systems: All systems reviewed & are unremarkable except as noted in Subjective Physical Exam Constitutional: Alert and oriented x3 Patient is calm and conversational. Respiratory: Clear bilaterally. No respiratory distress. Gastrointestinal (Abdomen): Active bowel sounds. Abdomen is distended and diffusely tender but soft. Pain worse on right side. Results & Data ([facility]) Vital Signs (Past 12 Hours) Vital Signs Temp Pulse Resp BP BP Pulse Ox 03/01/21 15:09 36.5 C 79 18 106/66 03/01/21 07:00 36.7 C 77 16 101/67 94 03/01/21 04:15 36.3 C L 94 H 14 137/4 L 99 In: 966ml Out: 6ml Labs: Hgb dropped from 9.9 to 7.9 WBCs trending up to 9.93 but still within normal limits. AST elevated at 115 BUN elevated at 2.6 Creat. elevated at 2.26 Total protein low at 5.8 Albumin low at 2.2
--- NOTE | 2021-03-01 20:11 | Billing Data ---
Date of Service March 01, 2021 Coding Level of Care Code 57476 Subseq Hosp Care Lvl 3
[2021-03-02] MEDS: HYDROmorphone INJ 0.5 MG/0.5 ML SYR IV PRN ×3 (03:19→21:45)
[2021-03-02] MEDS: LACTATED RINGER'S 1,000 ML IV SCH ×2 (03:19→16:15)
[2021-03-02 05:52] LABS: Hematocrit (blood only) 23.4 % (42-52); Hemoglobin 7.9 g/dL (14.0-18.0); Mean Corpuscular Hemoglobin 30.3 pg (25-34); Mean Corpuscular Hgb Conc 33.8 g/dL (32-36); Mean Corpuscular Volume 89.7 fL (80-100); RDW Coefficient of Variation 18.9 % (11.5-14.5); RDW Standard Deviation 62.7 fL (36.4-46.3); Red Blood Count 2.61 M/uL (4.7-6.1); White Blood Count 7.52 K/uL (4.8-10.8)
[2021-03-02 06:00] LABS: Mean Platelet Volume 9.9 fL (7.4-10.4); Platelet Count 70 K/uL (130-400)
[2021-03-02 06:21] LABS: Basophils # (auto) 0.01 K/uL (0-0.2); Basophils % (auto) 0.1 %; Immature Granulocytes # (auto) 0.01 K/uL (0.00-0.02); Immature Granulocytes % (auto) 0.1 %; Lymphocytes # (auto) 0.56 K/uL (1.2-3.4); Lymphocytes % (auto) 7.4 %; Monocytes # (auto) 0.62 K/uL (0.11-0.59); Monocytes % (auto) 8.2 %; Neutrophils # (auto) 6.02 K/uL (1.4-6.5); Neutrophils % (auto) 80.2 %; Ovalocytes 1+
[2021-03-02 06:30] LABS: Albumin Level 2.1 gm/dl (3.4-5.0); BUN Creatinine Ratio 12.9 (10-20); Calcium 7.9 mg/dl (8.5-10.1); Est GFR (African American) 42.1; Est GFR (Non-African American) 36.3; Magnesium 1.9 mg/dl (1.8-2.4); Potassium 3.6 mmol/L (3.5-5.1)
[2021-03-02 06:46] LABS: Albumin Globulin Ratio 0.6 (0.9-2); Bilirubin,Total 0.9 mg/dl (0.2-1); Globulin 3.8 gm/dl (2.5-4.0); Total Protein 5.9 gm/dl (6.4-8.2)
[2021-03-02] MEDS ORDERED: POTASSIUM CHLORIDE PWD 20 MEQ PACK PO STA (06:56)
[2021-03-02] MEDS: FINASTERIDE 5 MG TAB PO SCH (09:02)
[2021-03-02] MEDS: METOPROLOL TARTRATE 25 MG TAB PO SCH ×2 (09:02→21:35)
[2021-03-02] MEDS: rifAXIMin 550 MG TABLET PO SCH ×2 (09:02→21:35)
[2021-03-02] MEDS: DOCUSATE SODIUM 100 MG CAP PO SCH ×2 (09:02→21:31)
[2021-03-02] MEDS: LACTULOSE SYRUP 20 GM/30 ML UDC PO SCH ×3 (09:02→21:41)
[2021-03-02] MEDS: PANTOprazole 40 MG TAB PO SCH ×2 (09:02→21:35)
[2021-03-02] MEDS: SODIUM BICARBONATE 650 MG TAB PO SCH ×2 (09:03→21:35)
[2021-03-02] MEDS: CYANOCOBALAMIN 500 MCG TABLET (VITAMIN B-12) PO SCH (09:04)
[2021-03-02] MEDS: ATORVASTATIN 20 MG TAB PO SCH (09:05)
[2021-03-02] MEDS: TAMSULOSIN HCL 0.4 MG CAP PO SCH (09:05)
[2021-03-02] MEDS: FERROUS SULFATE 325 MG TAB PO SCH (09:05)
[2021-03-02] MEDS: FOLIC ACID 1 MG TAB PO SCH (09:05)
[2021-03-02] MEDS: CEROVITE ADV FORMULA TAB PO SCH (09:05)
[2021-03-02] MEDS: SPIRONOLACTONE 100 MG TAB PO SCH (09:05)
[2021-03-02] MEDS: MAGNESIUM OXIDE 400 MG TAB PO SCH (09:05)
[2021-03-02] MEDS: CHOLECALCIFEROL 1,000 UNITS 25 MCG TAB PO SCH (09:06)
[2021-03-02] MEDS: UMECLIDINIUM BROMIDE 62.5MCG/BLISTER 7 PUFFS/INHALER INH SCH (09:07)
[2021-03-02] MEDS: FLUTICASONE/VILANTEROL 100/25MCG 14 PUFFS/INHALER INH SCH (09:07)
--- NOTE | 2021-03-02 09:07 | Gastroenterology Progress Note ---
Date of Service March 02, 2021 Assessment & Plan (1) Abdominal pain: (2) Abdominal ascites: (3) Liver cirrhosis: The patient has a significant history of liver cirrhosis with esophageal varices. Presented to the emergency department 02/26/2021 due to abdominal pain. Most recent admissions due to acute hepatic encephalopathy and lower GI bleed. Diagnostic paracentesis was obtained 02/27/2021 and is negative for infection with cultures negative to date. X-ray 03/01/2021 consistent with an ileus. Patient has been evaluated by surgical services. Reports lower abdominal pain is improving but RUQ pain and abdominal firmness worsening. Will obtain RUQ ultrasound to evaluate for worsening ascites. Tolerating regular diet. Continue lactulose. Continue supportive care. Please refer to supervising physician addendum for further recommendations. Admission and Anticipated Discharge Date Admission Date: February 28, 2021 Subjective Patient sitting upright in bed, alert, oriented and conversant. He reports that his sharp lower abdominal pain has greatly improved. Continues to note some mild bilateral lower abdominal discomfort. He does have RUQ pain with palpation. Reports nausea yesterday without vomiting. Denies nausea or vomiting so far this morning. Feels hungry this morning and is tolerating regular diet. Frequent loose bowel movements per nursing documentation. No notes of blood in stool. Reports + flatus. Review of Systems Review of Systems: All systems reviewed & are unremarkable except as noted in Subjective Physical Exam Constitutional: + cachectic; no acute distress Eyes: no conjunctival abnormality Neck: normal visual inspection Respiratory: normal respiratory effort; no respiratory distress and no labored breathing Cardiovascular: Rate/Rhythm: regular rate and regular rhythm Extremities: no edema Gastrointestinal (Abdomen): Inspection/Auscultation: abdomen normal to inspection and normal bowel sounds Percussion/Palpation: + abdomen tender (RUQ pain with palpation) and + guarding Psychiatric: Orientation: alert Results & Data ([facility]) Vital Signs (Past 12 Hours) Vital Signs Temp Pulse Resp BP BP Pulse Ox 03/02/21 08:10 36.6 C 84 18 106/88 94 03/01/21 23:16 36.7 C 74 16 106/73 94 Laboratory Results - last 24 hr 03/01/21 03/01/21 03/01/21 11:50 17:10 20:29 WBC RBC Hgb Hct MCV MCH MCHC RDW Std Deviation RDW Coeff of Anderson Plt Count MPV Immature Gran % (Auto) Neut % (Auto) Lymph % (Auto) [place] % (Auto) Eos % (Auto) Baso % (Auto) Neut # (Auto) Lymph # (Auto) [place] # (Auto) Eos # (Auto) Baso # (Auto) Immature Gran # (Auto) Ovalocytes Sodium Potassium Chloride Carbon Dioxide Anion Gap BUN Creatinine Est Cr Clr Drug Dosing Est GFR ( Amer) Est GFR (Non-Af Amer) BUN/Creatinine Ratio Glucose POC Glucose 142 H 167 H 148 H Calcium Phosphorus Magnesium Total Bilirubin AST ALT Alkaline Phosphatase Total Protein Albumin Globulin Albumin/Globulin Ratio 03/02/21 03/02/21 03/02/21 00:14 05:35 05:35 WBC 7.52 RBC 2.61 L Hgb 7.9 L Hct 23.4 L MCV 89.7 MCH 30.3 MCHC 33.8 RDW Std Deviation 62.7 H RDW Coeff of Anderson 18.9 H Plt Count 70 L MPV 9.9 Immature Gran % (Auto) 0.1 Neut % (Auto) 80.2 Lymph % (Auto) 7.4 [place] % (Auto) 8.2 Eos % (Auto) 4.0 Baso % (Auto) 0.1 Neut # (Auto) 6.02 Lymph # (Auto) 0.56 L [place] # (Auto) 0.62 H Eos # (Auto) 0.30 Baso # (Auto) 0.01 Immature Gran # (Auto) 0.01 Ovalocytes 1+ Sodium 142 Potassium 3.6 Chloride 116 H Carbon Dioxide 18 L Anion Gap 8.0 BUN 24 H Creatinine 1.84 H D Est Cr Clr Drug Dosing 41.0 Est GFR ( Amer) 42.1 Est GFR (Non-Af Amer) 36.3 BUN/Creatinine Ratio 12.9 Glucose 109 H POC Glucose 116 H Calcium 7.9 L Phosphorus 2.0 L D Magnesium 1.9 Total Bilirubin 0.9 AST 74 H ALT 39 Alkaline Phosphatase 89 Total Protein 5.9 L Albumin 2.1 L Globulin 3.8 Albumin/Globulin Ratio 0.6 L 03/02/21 05:57 WBC RBC Hgb Hct MCV MCH MCHC RDW Std Deviation RDW Coeff of Anderson Plt Count MPV Immature Gran % (Auto) Neut % (Auto) Lymph % (Auto) [place] % (Auto) Eos % (Auto) Baso % (Auto) Neut # (Auto) Lymph # (Auto) [place] # (Auto) Eos # (Auto) Baso # (Auto) Immature Gran # (Auto) Ovalocytes Sodium Potassium Chloride Carbon Dioxide Anion Gap BUN Creatinine Est Cr Clr Drug Dosing Est GFR ( Amer) Est GFR (Non-Af Amer) BUN/Creatinine Ratio Glucose POC Glucose 124 H Calcium Phosphorus Magnesium Total Bilirubin AST ALT Alkaline Phosphatase Total Protein Albumin Globulin Albumin/Globulin Ratio (1) Abdominal pain Abdominal location: generalized Qualified Code(s): R10.84 - Generalized abdominal pain (2) Abdominal ascites Ascites type: other type Qualified Code(s): R18.8 - Other ascites (3) Liver cirrhosis Ascites presence: with ascites Hepatic cirrhosis type: unspecified hepatic cirrhosis Qualified Code(s): K74.60 - Unspecified cirrhosis of liver; R18.8 - Other ascites
[2021-03-02] MEDS: HEPARIN SOD 5,000 UNIT/0.5 ML VIAL SQ SCH ×2 (09:09→21:31)
--- NOTE | 2021-03-02 11:54 | Hospitalist Progress Note ---
Date of Service March 02, 2021 Assessment & Plan (1) Abdominal pain: Alfredo Willis is a 70 yo male with complex PMHx that includes cirrhosis with ascites and esophogeal varices, recent admission earlier this month for hepatic encephalopathy, hepatitis C, COPD, CKD3 and Crohn's disease who was admitted to [facility] on 02/26/2021 for severe abdominal pain. Abdominal Pain Liver history as stated above with recent admission for hepatic encephalopathy, worsening abdominal pain x5 days, CT showing ileus, diagnostic paracentesis ruling out SBP --> suspect ileus as cause of abdominal pain. Persistent abdominal pain today - likely multifactorial due to occasional Dilaudid use as well as lack of movement in the hospital - maintain diet at full liquids today - continue Rifaximin/Lactulose, adjusted Lactulose to 10am/10pm (after meals) to help with abdominal cramping pain - added Simethicone 80mg suspension Q6H to address cramping as well - ordered PT/OT - strict I/Os - PRN Tylenol for pain, attempt to avoid narcotic pain medications given ileus - trend CBC daily Hepatic Encephalopathy, resolved AMS in context of cirrhosis, recent admission for hepatic encephalopathy, and no recent BMs, Ammonia 39.4 --> hepatic encephalopathy - lactulose enema x2 on 02/28 followed by loose BMx6 - continue Rifaximin/Lactulose PO - follow closely for changes in mental status AMMY on CKD, AMMY resolved - Cr 1.86 --> 2.26 on 03/01 in context of dehydration (NPO, BM x6), suspect pre- renal injury 2/2 this - improved to 1.84 today after IVFs - continue IVFs with LR @90cc/hr - trend BMP daily Chronic Normocytic Anemia - Hgb baseline 8-9 - suspect 2/2 chronic liver disease - trend CBC daily Liver Cirrhosis/Ascites - MELD score of 17 - diagnostic paracentesis without evidence of SBP - continue home regimen of Rifaximin, Lactulose, Spironolactone, Furosemide, sodium bicarb Non-Anion Gap Metabolic Acidosis ABG 02/28: pH 7.42, pCO2 22, HCO3 14; Anion gap 8.0 --> suspect CKD/high ammonium state as cause of acidosis, with respiratory compensation - suspect chronic, no further evaluation at this time COPD - continue home meds CAD - continue Aspirin HTN - continue Lopressor BPH - continue Flomax GERD - continue Protonix FEN/GI: full liquid diet DVT Prophylaxis: Heparin 5000 units SQ BID Code Status: DNR/DNI Disposition: med/surg Admission and Anticipated Discharge Date Admission Date: February 28, 2021 Supervising Physician Co-Signing Physician Notes I personally examined the patient and verified all ivy points of history and exam, discussed case, and agree with decision making with Dr Wilkins. belly off and on bad, mentation good. Vitals noted, gen aaox3 pleasant nad heent nc at mmm breathing unlabored no accessory muscles good effort skin no rashes no pallor or icterus. abd soft but distneded, R middle tender no guarding otherwise mild tender Abdominal paininitially appearing ileus and motility driven, but as his story unfolds further, it seems that the gas from lactulose really is causing him some serious discomfort. Unfortunately even missing a day of dosing caused him to be quite encephalopathic quite quickly. He is aware of this. Continue lactulose, with diet modification/better ambulation/time to adapt/trial of simethicone (discussed with patient this is highly unlikely to help but is relatively harmless). Continue supportive care and pain control. Altered mental statushepatic encephalopathy. Fortunately has improved. Otherwise as above Subjective Received Dilaudid 0.25mg x2 overnight for breakthrough abdominal pain. This morning he remains awake/alert and A+Ox3; no AMS. Had several loose BMs yesterday and overnight. Reports persistent generalized abdominal pain this morning. Denies fever/chills, chest pain, SOB, N/V. Review of Systems Review of Systems: Pertinent positives and negatives mentioned in HPI. Physical Exam Physical Exam: General: A+Ox3, cooperative, NAD HEENT: Atraumatic, normocephalic. Pulm: decreased air entry bilaterally, -wheezes, -rales, -rhonchi. Symmetrical chest rise. No increase work of breathing. No respiratory distress. Cardiac: RRR, -mrg. Radial pulses intact and symmetrical. Abdominal: soft, moderately distended, moderate tenderness to palpation in all quadrants with mild guarding but no rebound, NA BS x 4, +fluid wave - stable exam from yesterday Results & Data Results & Data ([facility]) Vital Signs (Past 12 Hours) Vital Signs Temp Pulse Resp BP Pulse Ox 03/02/21 08:10 36.6 C 84 18 106/88 94 Resident Activity Tracking Resident Involvement: Resident Care Provided Care Provided: Adult Hospital Medicine (1) Abdominal pain Abdominal location: generalized Qualified Code(s): R10.84 - Generalized abdominal pain
[2021-03-02] MEDS: ACETAMINOPHEN 325 MG TAB PO PRN ×2 (12:18→19:35)
--- NOTE | 2021-03-02 14:02 | Ultrasound Report ---
US abdomen ltd ascites CLINICAL HISTORY: RUQ pain, cirrhosis, ascites COMPARISON STUDY: Abdomen and pelvis CT 02/26/2021. FINDINGS: There is a small to moderate amount of scattered ascites seen throughout the abdomen most p ronounced within the right upper quadrant. Nodular contour to the liver consistent with cirrhosis. Th e spleen is also enlarged measuring 16 cm in length. IMPRESSION: 1. Small to moderate amount of ascites. This has improved compared to the prior CT examination. 2. Cirrhotic liver with splenomegaly, unchanged. ACT 112: Negative or not required by law. Electronically signed by: Dev Hernandez M.D. 03/02/2021 2:01 PM
--- NOTE | 2021-03-02 15:03 | Progress Notes ---
DATE: 03/02/2021 ADDENDUM: Addition to the progress note on patient by Rae Carney. Patient had an ultrasound today because of some persistent abdominal pain and showed a cirrhotic liver and a little bit less ascites and before, but no other new findings. After examining the patient, the chart, and the x-ray, I think that his discomfort may be from intestinal distention from the lactulose that he is getting for his encephalopathy. Unfortunately, I do not think there is a lot of room to cut back as he will probably end up with worsening encephalopathy, so I suspect we are going to need to put up with a little bit of abdominal distention and discomfort going forward. At this point, I do not have any other recommendations other than to continue his current medications and advance his diet as tolerated, keeping in mind a 2 g sodium and 1 to 1-1/2 gram per kilogram of good protein.
[2021-03-02] MEDS: SIMETHICONE 80 MG CHEW PO SCH ×2 (16:14→21:35)
--- NOTE | 2021-03-02 18:22 | Billing Data ---
Date of Service March 02, 2021 Coding Level of Care Code 08491 Subseq Hosp Care Lvl 3
[2021-03-03] MEDS: LACTATED RINGER'S 1,000 ML IV SCH ×2 (02:08→13:33)
[2021-03-03] MEDS: SIMETHICONE 80 MG CHEW PO SCH ×4 (06:08→21:39)
[2021-03-03] MEDS: HYDROmorphone INJ 0.5 MG/0.5 ML SYR IV PRN ×2 (06:08→14:08)
[2021-03-03 06:41] LABS: Hematocrit (blood only) 23.6 % (42-52); Mean Corpuscular Hemoglobin 30.5 pg (25-34); Mean Corpuscular Hgb Conc 33.9 g/dL (32-36); Mean Corpuscular Volume 90.1 fL (80-100); RDW Coefficient of Variation 18.9 % (11.5-14.5); RDW Standard Deviation 62.5 fL (36.4-46.3); Red Blood Count 2.62 M/uL (4.7-6.1); White Blood Count 4.64 K/uL (4.8-10.8)
[2021-03-03 06:43] LABS: Mean Platelet Volume 9.9 fL (7.4-10.4); Platelet Count 68 K/uL (130-400)
[2021-03-03 07:05] LABS: Albumin Level 2.2 gm/dl (3.4-5.0); BUN Creatinine Ratio 10.6 (10-20); Calcium 7.7 mg/dl (8.5-10.1); Creatinine Clr Calc Pharmacy 43.4 ml/min; Est GFR (Non-African American) 38.9; Potassium 3.9 mmol/L (3.5-5.1)
[2021-03-03 07:08] LABS: Albumin Globulin Ratio 0.6 (0.9-2); Bilirubin,Total 0.9 mg/dl (0.2-1); Globulin 3.5 gm/dl (2.5-4.0); Total Protein 5.7 gm/dl (6.4-8.2)
[2021-03-03 07:17] LABS: Basophils # (auto) 0.01 K/uL (0-0.2); Basophils % (auto) 0.2 %; Eosinophils # (auto) 0.33 K/uL (0-0.5); Eosinophils % (auto) 7.1 %; Immature Granulocytes # (auto) 0.01 K/uL (0.00-0.02); Immature Granulocytes % (auto) 0.2 %; Lymphocytes # (auto) 0.44 K/uL (1.2-3.4); Lymphocytes % (auto) 9.5 %; Monocytes # (auto) 0.31 K/uL (0.11-0.59); Monocytes % (auto) 6.7 %; Neutrophils # (auto) 3.54 K/uL (1.4-6.5); Neutrophils % (auto) 76.3 %
--- NOTE | 2021-03-03 08:20 | Hospitalist Progress Note ---
Date of Service March 03, 2021 Assessment & Plan (1) Abdominal pain: Alfredo Willis is a 70 yo male with complex PMHx that includes cirrhosis with ascites and esophogeal varices, recent admission earlier this month for hepatic encephalopathy, hepatitis C, COPD, CKD3 and Crohn's disease who was admitted to [facility] on 02/26/2021 for severe abdominal pain. Abdominal Pain Liver history as stated above with recent admission for hepatic encephalopathy, worsening abdominal pain x5 days, CT showing ileus, diagnostic paracentesis ruling out SBP --> suspect ileus as cause of abdominal pain. Persistent abdominal pain today - likely multifactorial due to occasional Dilaudid use as well as lack of movement in the hospital -Diet had been advanced to regular, however due to his persistent abdominal pain will return to full liquids for dinner tonight - continue Rifaximin/Lactulose, adjusted Lactulose to 10am/10pm (after meals) to help with abdominal cramping pain - added Simethicone 80mg suspension Q6H to address cramping as well -GI consulted - recommending continued use of lactulose despite abdominal discomfort due to patient developing encephalopathy after missing a single dose -Advance diet as tolerated, recommending limiting to 2 g of sodium and 1 to 1.5 g/kg gram of protein - strict I/Os - PRN Tylenol for pain, attempt to avoid narcotic pain medications given ileus -Does have Dilaudid for breakthrough pain if needed - trend CBC daily Hepatic Encephalopathy, resolved AMS in context of cirrhosis, recent admission for hepatic encephalopathy, and no recent BMs, Ammonia 39.4 --> hepatic encephalopathy - lactulose enema x2 on 02/28 followed by loose BMx6 - continue Rifaximin/Lactulose PO - follow closely for changes in mental status AMMY on CKD, AMMY resolved - Cr 1.86 --> 2.26 on 03/01 in context of dehydration (NPO, BM x6), suspect pre- renal injury 2/2 this - improved to 1.84 today after IVFs - continue IVFs with LR @90cc/hr - trend BMP daily Chronic Normocytic Anemia - Hgb baseline 8-9 - suspect 2/2 chronic liver disease - trend CBC daily Liver Cirrhosis/Ascites - MELD score of 17 - diagnostic paracentesis without evidence of SBP - continue home regimen of Rifaximin, Lactulose, Spironolactone, Furosemide, sodium bicarb Non-Anion Gap Metabolic Acidosis ABG 02/28: pH 7.42, pCO2 22, HCO3 14; Anion gap 8.0 --> suspect CKD/high ammonium state as cause of acidosis, with respiratory compensation - suspect chronic, no further evaluation at this time COPD - continue home meds CAD - continue Aspirin HTN - continue Lopressor BPH - continue Flomax GERD - continue Protonix FEN/GI: full liquid diet DVT Prophylaxis: Heparin 5000 units SQ BID Code Status: DNR/DNI Disposition: med/surg Admission and Anticipated Discharge Date Admission Date: February 28, 2021 Supervising Physician Co-Signing Physician Notes I personally examined the patient and verified all ivy points of history and exam, discussed case, and agree with decision making with Dr Patel. sleeping comfortably. end user consultant input appreciated Vitals noted, resting comfortably nad breathing unlabored no accessory muscles good effort skin no pallor Abdominal paininitially appearing ileus and motility driven, but as his story unfolds further, it seems that the gas from lactulose really is causing him some serious discomfort. Unfortunately even missing a day of dosing caused him to be quite encephalopathic quite quickly. He is aware of this. Continue lactulose, with diet modification/better ambulation/time to adapt/trial of simethicone. Continue supportive care and pain control. Allowed to rest since he was comfortably when i saw him, and is overall now stable, just very symptomatic Altered mental statushepatic encephalopathy. improved, but needs lactulose to avoid decompensation Otherwise as above Subjective Patient reports continued abdominal pain today, especially after meals. He says that he feels very distended shortly after eating and it will eventually subside and recur with the next meal. He understands that this is likely as a result of his lactulose, which he requires due to hepatic encephalopathy without it. He is requiring doses of Dilaudid as needed for breakthrough pain. Feels Tylenol is not helping very much. Review of Systems Review of Systems: All systems reviewed & are unremarkable except as noted in Subjective Physical Exam Physical Exam: General: A+Ox3, cooperative, NAD HEENT: Atraumatic, normocephalic. Pulm: CTAB, -wheezes, -rales, -rhonchi. Symmetrical chest rise. No increase work of breathing. No respiratory distress. Cardiac: RRR, -mrg. Radial pulses intact and symmetrical. Abdominal: soft, moderately distended, moderate tenderness to palpation in all quadrants with mild guarding but no rebound, BS x 4 Results & Data Results & Data ([facility]) Vital Signs (Past 12 Hours) Vital Signs Temp Pulse Resp BP BP Pulse Ox 03/03/21 07:01 36.5 C 64 16 106/65 90 03/02/21 21:30 36.6 C 67 20 105/68 Resident Activity Tracking Resident Involvement: Resident Care Provided Care Provided: Adult Hospital Medicine (1) Abdominal pain Abdominal location: generalized Qualified Code(s): R10.84 - Generalized abdominal pain
[2021-03-03] MEDS: UMECLIDINIUM BROMIDE 62.5MCG/BLISTER 7 PUFFS/INHALER INH SCH (09:17)
[2021-03-03] MEDS: FLUTICASONE/VILANTEROL 100/25MCG 14 PUFFS/INHALER INH SCH (09:17)
[2021-03-03] MEDS: SPIRONOLACTONE 100 MG TAB PO SCH (09:18)
[2021-03-03] MEDS: DOCUSATE SODIUM 100 MG CAP PO SCH ×2 (09:18→19:49)
[2021-03-03] MEDS: FERROUS SULFATE 325 MG TAB PO SCH (09:18)
[2021-03-03] MEDS: TAMSULOSIN HCL 0.4 MG CAP PO SCH (09:19)
[2021-03-03] MEDS: FOLIC ACID 1 MG TAB PO SCH (09:19)
[2021-03-03] MEDS: METOPROLOL TARTRATE 25 MG TAB PO SCH ×2 (09:20→20:02)
[2021-03-03] MEDS: MAGNESIUM OXIDE 400 MG TAB PO SCH (09:20)
[2021-03-03] MEDS: ATORVASTATIN 20 MG TAB PO SCH (09:20)
[2021-03-03] MEDS: CEROVITE ADV FORMULA TAB PO SCH (09:21)
[2021-03-03] MEDS: PANTOprazole 40 MG TAB PO SCH ×2 (09:21→20:02)
[2021-03-03] MEDS: FINASTERIDE 5 MG TAB PO SCH (09:21)
[2021-03-03] MEDS: rifAXIMin 550 MG TABLET PO SCH ×2 (09:22→20:01)
[2021-03-03] MEDS: SODIUM BICARBONATE 650 MG TAB PO SCH ×2 (09:22→20:02)
[2021-03-03] MEDS: CHOLECALCIFEROL 1,000 UNITS 25 MCG TAB PO SCH (09:22)
[2021-03-03] MEDS: CYANOCOBALAMIN 500 MCG TABLET (VITAMIN B-12) PO SCH (09:22)
[2021-03-03] MEDS: HEPARIN SOD 5,000 UNIT/0.5 ML VIAL SQ SCH ×2 (09:23→20:03)
[2021-03-03] MEDS: LACTULOSE SYRUP 20 GM/30 ML UDC PO SCH ×2 (09:23→19:49)
--- NOTE | 2021-03-03 16:32 | Gastroenterology Progress Note ---
Date of Service March 03, 2021 Assessment & Plan (1) Abdominal pain: Unclear etiology. No SBP noted post paracentesis. CT scan no clear etiology. RUQ u/s no clear etiology. This could possibly be chronic instestinal ischemia (nothign acute on CT). Will order mesenteric doppler of abdominal arteries. Check fasting am cortisol to look for Addisons as another possible etiology. He had normal TSH 02/21/21 so no evidence of thyroid as etiology. ascites --no sbp on cell count and cx neg so far. HSE--no evidence of encephalopathy---continue rifaxamin and lactulose. Admission and Anticipated Discharge Date Admission Date: February 28, 2021 Subjective CC f/u abd pain HPI Pt ate solid food yesterday and felt pretty good overall. After eating solid breakfast this am he has increased pain. Pain he states is is lower abdomen. Some abdominal distension. He states feels better this afternoon but required pain medication. He states he is continuing to pass stools. Physical Exam Gastrointestinal (Abdomen): pos bs, moderately distended and tympanitic, mild guarding LUQ but no rebound Results & Data ([facility]) Vital Signs (Past 12 Hours) Vital Signs Temp Pulse Resp BP Pulse Ox 03/03/21 15:09 36.5 C 70 16 115/71 94 03/03/21 12:22 104/70 03/03/21 09:16 68 96/56 L 03/03/21 07:01 36.5 C 64 16 106/65 90 (1) Abdominal pain Abdominal location: generalized Qualified Code(s): R10.84 - Generalized abdominal pain
--- NOTE | 2021-03-03 19:12 | Billing Data ---
Date of Service March 03, 2021 Coding Level of Care Code 51335 Subseq Hosp Care Lvl 2
--- NOTE | 2021-03-03 19:21 | Ultrasound Report ---
US duplex mesenteric HISTORY: 70 years-old Male US of abdominal arteries for abd pain acute mid abdominal pain COMPARISON: CT abdomen and pelvis 02/26/2021 TECHNIQUE: Multiple real-time sonographic images of the abdominal vascular structures were obtained a ssessing grayscale appearance, color and spectral flow FINDINGS: Limited study secondary to obscuring bowel gas. Unable to visualize Doppler flow within the mid SMA. Peak systolic velocities within the patent celiac artery measure up to 172 cm/s, within the SMA measu re up to 156 cm/s, within the inferior mesenteric artery measure up to 175 cm/s, within the common he patic artery measure up to 169 cm/s. No arterial occlusion identified. Cirrhosis with abdominal ascit es. IMPRESSION: 1. Cirrhosis with abdominal ascites. 2. Patent mesenteric arteries without arterial occlusion or significantly elevated peak systolic [place] to suggest high-grade stenosis. ACT 112: Negative or not required by law. The above report was generated using voice recognition software. It may contain grammatical, syntax o r spelling errors. Electronically signed by: Cesar Reyna M.D. 03/03/2021 7:20 PM
[2021-03-03] MEDS ORDERED: HYDROmorphone INJ 0.5 MG/0.5 ML SYR IV STA (19:34)
[2021-03-04] MEDS: LACTATED RINGER'S 1,000 ML IV SCH ×3 (01:11→21:59)
[2021-03-04] MEDS: HYDROmorphone INJ 0.5 MG/0.5 ML SYR IV PRN ×2 (02:36→10:46)
[2021-03-04] MEDS: SIMETHICONE 80 MG CHEW PO SCH ×4 (04:30→21:58)
--- NOTE | 2021-03-04 07:16 | Hospitalist Progress Note ---
Date of Service March 04, 2021 Assessment & Plan (1) Abdominal pain: Alfredo Willis is a 70 yo male with complex PMHx that includes cirrhosis with ascites and esophogeal varices, recent admission earlier this month for hepatic encephalopathy, hepatitis C, COPD, CKD3 and Crohn's disease who was admitted to [facility] on 02/26/2021 for severe abdominal pain, which is likely multifactorial in etiology Abdominal Pain - admission ct w/o contrast demonstrating ileus, cirrhosis, moderate ascites, rectal wall thickening/inflammation - proctitis? 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 hernia? -- fasting AM cortisol wnl, drawn to r/o Addisons -- Proceed with CT-A/P w/ po contrast - Seeing as pain is still quite significant --> bowel rest, NPO - continue Rifaximin/Lactulose, adjusted Lactulose to 10am/10pm (after meals) to help with abdominal cramping pain - added Simethicone 80mg suspension Q6H to address cramping as well - GI consulted - recommending continued use of lactulose despite abdominal discomfort due to patient developing encephalopathy after missing a single dose - Advance diet as tolerated, recommending limiting to 2 g of sodium and 1 to 1.5 g/kg gram of protein - strict I/Os - PRN Tylenol for pain, attempt to avoid narcotic pain medications given ileus - Does have Dilaudid for breakthrough pain if needed - trend CBC daily Hepatic Encephalopathy, resolved - AMS in context of cirrhosis, recent admission for hepatic encephalopathy, and no recent BMs, Ammonia 39.4 --> hepatic encephalopathy - lactulose enema x2 on 02/28 followed by loose BMx6 - continue Rifaximin/Lactulose PO - follow closely for changes in mental status AMMY atop CKD (in setting of cirrhosis) -- resolved - Review of chart - baseline Cr seems to be ~1.5-2.0 - Resolved s/p IVF - continue IVFs with LR @90cc/hr - trend BMP daily Chronic Normocytic Anemia - Hgb baseline 8-9 - suspect 2/2 chronic liver disease - Without significant change day-to-day - CBC daily Liver Cirrhosis/Ascites - MELD score of 17 - diagnostic paracentesis without evidence of SBP - continue home regimen of Rifaximin, Lactulose, Spironolactone, Furosemide, sodium bicarb Non-Anion Gap Metabolic Acidosis ABG 02/28: pH 7.42, pCO2 22, HCO3 14; Anion gap 8.0 --> suspect CKD/high ammonium state as cause of acidosis, with respiratory compensation - suspect chronic, no further evaluation at this time COPD - continue home meds CAD - continue Aspirin HTN - continue Lopressor BPH - continue Flomax GERD - continue Protonix FEN/GI: npo w/ bowel rest for now given continued pain DVT Prophylaxis: Heparin 5000 units SQ BID Code Status: DNR/DNI Disposition: med/surg Admission and Anticipated Discharge Date Admission Date: February 28, 2021 Supervising Physician Co-Signing Physician Notes I personally examined the patient and verified all ivy points of history and exam, discussed case, and agree with decision making with Dr Mckeon. Still having significant belly pain. Not a whole lot different over the last 2 days or so. Very pleasant despite what is going through. No clearly new symptoms. While not greatly so, he feels that the simethicone might be helping some. Vitals noted, in general he is awake and alert, whenever he is laying still he does not appear in distress, but as soon as he even tries to roll over for an abdominal exam is clear that he is hurting. His belly continues to be distended with nondescript diffuse tenderness, definitely less than the first day examined him but not much change sincetakes may be moderate palpation to get him to visibly wince in pain. I felt a little bit of fullness in his inguinal canals, left greater than right that was a little bit tender, not totally consistent with a hernia however. Abdominal paindue to concern about possibly an incarcerated hernia that was overlookedwe repeated CT with oral contrast. Fortunately his exam was only marginally consistent with this, and his CT did not show it. Furthermore, comparing CT today from his initial CT at time of admission, while he still has significant small bowel gaseous distention it does appear to be less. To this end, it does seem that small bowel gas is what is causing his pain, the question then becomes what is causing the small bowel gas. It is quite possible that is all related to the lactulose, we are not seeing any overt obstructive pathology, although certainly we will need to remain vigilant for this. Is not clear that his other meds would cause slow motility, but would definitely want to have ongoing consideration for this. Certainly narcotics can cause motility issues like this, but he was in this kind of pain whenever he first came in, and his CT was worse then, so while the Dilaudid might be contributing a little to slowing of motility, I do not feel it in his best interest to stop this pain control with little recourse to manage his pain, and also doubt that it is a major culprit in his motility at this time. Rectal tube to try to affect symptom c ontrol, rectal lactulose for now. If this affects good improvement in symptom control, may need to unfortunately give trial for a day or so of rectal lactulose even when he is awake and alert, followed by a day or so of resumption of oral lactulose, to test if it truly is the lactulose causing this. If he does not improve/he is unable to shed the rectal tube, we will need to continue to look at why his small bowel is so severely gaseous distended. Fortunately does not show any acute surgical indications, and while unfortunately quite uncomfortable at times, he does appear very stable Altered mental statushepatic encephalopathy. improved, but needs lactulose to avoid decompensation which certainly complicates things if the lactulose ends up being the culprit Otherwise as above Subjective NAEO. Patient seen this AM while eating breakfast - says feeling OK overall Pain is always present to some degree, rates as 8/10 -- more of a sharp pain than anything else Says gets almost immediately worse with any sort of eating, not so much with liquids Says the pain is in both the RLQ/LLQ primarily, but also the groin region Not too much nausea thankfully No shortness of breath Passing a lot of gas last night but not so much this AM Voiding fine Does endorse having multiple hernia surgeries on both sides in the past Review of Systems Review of Systems: as per HPI Physical Exam Constitutional: well appearing, eating breakfast, responds appropriate, fully a+ox4. nad. Neck: neck veins flat, no jvd Respiratory: good respiratory effort with symmetric expansion of the chest. lungs ctab w/o crackles or wheezes Cardiovascular: nrrr, s1/s2 present w/o m/r/g Gastrointestinal (Abdomen): hyperactive bowel sounds. intermittent high-pitched sounds, not predominant abdomen is mildly distended, firm on left side, LLQ-lateral aspect predominantly also +RLQ pain // no epigastric or suprapubic tenderness house's positive - mild hepatomegaly no rebound or guarding Genitourinary: asked patient if he would like a nurse or world geography teacher present, said he would prefer not normal external male genitalia no enlargement of the scrotum or ttp at the testicles there is some left sided fullness in the suprapubic region just above the base of the penis inguinal hernia exam does elicit pain on left side, coughing does reproduce sudden pain -- mild bulging appreciated Results & Data Results & Data ([facility]) Vital Signs (Past 12 Hours) Vital Signs Temp Pulse Resp BP Pulse Ox 03/03/21 22:32 36.9 C 66 16 106/65 94 Resident Activity Tracking Resident Involvement: Resident Care Provided Care Provided: Adult Hospital Medicine (1) Abdominal pain Abdominal location: generalized Qualified Code(s): R10.84 - Generalized abdominal pain
[2021-03-04] MEDS: rifAXIMin 550 MG TABLET PO SCH ×2 (09:20→19:55)
[2021-03-04] MEDS: SODIUM BICARBONATE 650 MG TAB PO SCH ×2 (09:20→19:54)
[2021-03-04] MEDS: CEROVITE ADV FORMULA TAB PO SCH (09:20)
[2021-03-04] MEDS: ATORVASTATIN 20 MG TAB PO SCH (09:20)
[2021-03-04] MEDS: PANTOprazole 40 MG TAB PO SCH ×2 (09:21→19:55)
[2021-03-04] MEDS: MAGNESIUM OXIDE 400 MG TAB PO SCH (09:21)
[2021-03-04] MEDS: TAMSULOSIN HCL 0.4 MG CAP PO SCH (09:21)
[2021-03-04] MEDS: CYANOCOBALAMIN 500 MCG TABLET (VITAMIN B-12) PO SCH (09:22)
[2021-03-04] MEDS: DOCUSATE SODIUM 100 MG CAP PO SCH ×2 (09:22→19:55)
[2021-03-04] MEDS: FINASTERIDE 5 MG TAB PO SCH (09:22)
[2021-03-04] MEDS: FOLIC ACID 1 MG TAB PO SCH (09:22)
[2021-03-04] MEDS: HEPARIN SOD 5,000 UNIT/0.5 ML VIAL SQ SCH ×2 (09:23→19:55)
[2021-03-04] MEDS: METOPROLOL TARTRATE 25 MG TAB PO SCH ×2 (09:23→21:58)
[2021-03-04] MEDS: CHOLECALCIFEROL 1,000 UNITS 25 MCG TAB PO SCH (09:23)
[2021-03-04] MEDS: FLUTICASONE/VILANTEROL 100/25MCG 14 PUFFS/INHALER INH SCH (09:24)
[2021-03-04] MEDS: UMECLIDINIUM BROMIDE 62.5MCG/BLISTER 7 PUFFS/INHALER INH SCH (09:24)
[2021-03-04] MEDS: SPIRONOLACTONE 100 MG TAB PO SCH (09:24)
[2021-03-04] MEDS: FERROUS SULFATE 325 MG TAB PO SCH (09:25)
[2021-03-04] MEDS: LACTULOSE SYRUP 20 GM/30 ML UDC PO SCH ×2 (09:25→19:56)
--- NOTE | 2021-03-04 17:06 | CT Scan Report ---
CT abd pelvis oral con only CLINICAL HISTORY: abdominal pain, L groin pain ?incarcerated hernia COMPARISON STUDY: CT scan dated 02/26/2021 FINDINGS: The patient was scanned following administration of dilute oral contrast. No intravenous contrast was administered. Images to the lung bases reveal small bilateral pleural effusions and bibasilar opacities, likely ate lectatic. The liver has a cirrhotic morphology. No masses are visualized in this noncontrast study. There are p eriesophageal and upper abdominal varices. The gallbladder is surgically absent. The spleen is enlarged measuring 14.2 cm. No pancreatic masses are visualized. No adrenal masses are visualized. No renal calculi are visualized. There is a 1 cm left renal cyst. There are no transition zones to indicate bowel obstruction. There is mild rectal wall thickening. Th ere is metallic artifact in the region of the rectum, likely secondary to a endoscopically placed cli p. This remains unchanged from the prior study. There is moderate ascites. There is ascites within the left inguinal canal. There is a 31 mm infraren al abdominal aortic aneurysm. No pathologic pelvic masses are visualized. No destructive skeletal lesions are visualized. IMPRESSION: 1. Slight overall increase in the volume of ascites when compared the prior study. 2. Cirrhotic liver morphology with ascites, splenomegaly and varices. 3. No evidence of bowel obstruction. No evidence of free air 4. Persistent rectal wall thickening with presumed endoscopic clips present within the rectum 5. Interval development of small bilateral pleural effusions 6. Ascitic fluid extends into the left inguinal canal. 7. 31 mm infrarenal abdominal aortic aneurysm ACT 112: Negative or not required by law. Electronically signed by: Lb Ellis M.D. 03/04/2021 5:05 PM
--- NOTE | 2021-03-04 17:25 | Gastroenterology Progress Note ---
Date of Service March 04, 2021 Assessment & Plan (1) Abdominal pain: Unclear etiology. No SBP noted post paracentesis. CT scan againg today no clear etiology. RUQ u/s no clear etiology. Mesenteric U/s neg. Cortisol ok. Abdomen markedly distended today. Consider rectal tube and if no improvement then NG tube. Check CBC and CMP now (no am labs today) and daily. ascites --no sbp on cell count and cx neg so far. HSE--no evidence of encephalopathy---continue rifaxamin and lactulose. Admission and Anticipated Discharge Date Admission Date: February 28, 2021 Subjective cc abd pain HPI Pt felt reasonably well this am but with increased abd pain post eating breakfast persisting throughout the day including at present. Pt states moving his bowels. CT A/P this afternoon some increase in ascites but no acute findings. Mesenteric u/s yesterday normal and am cortisol this am ok. Physical Exam Gastrointestinal (Abdomen): hyperactive bowel sounds, markedly distended and tympantiic but not tense, some guarding LUQ but no rebound. Results & Data ([facility]) Vital Signs (Past 12 Hours) Vital Signs Temp Pulse Resp BP BP Pulse Ox 03/04/21 16:01 36.7 C 63 16 115/74 94 03/04/21 09:19 65 102/66 03/04/21 07:50 36.8 C 62 16 115/71 95 (1) Abdominal pain Abdominal location: generalized Qualified Code(s): R10.84 - Generalized abdominal pain
[2021-03-04] MEDS ORDERED: HYDROmorphone INJ 0.5 MG/0.5 ML SYR IV STA (17:49)
[2021-03-04 17:58] LABS: Hematocrit (blood only) 28.6 % (42-52); Hemoglobin 9.5 g/dL (14.0-18.0); Mean Corpuscular Hemoglobin 30.1 pg (25-34); Mean Corpuscular Volume 90.5 fL (80-100); Red Blood Count 3.16 M/uL (4.7-6.1); White Blood Count 5.68 K/uL (4.8-10.8)
[2021-03-04 18:17] LABS: Albumin Level 2.6 gm/dl (3.4-5.0); BUN Creatinine Ratio 8.7 (10-20); Basophils # (auto) 0.02 K/uL (0-0.2); Basophils % (auto) 0.4 %; Calcium 8.4 mg/dl (8.5-10.1); Creatinine Clr Calc Pharmacy 45.2 ml/min; Echinocytes 1+; Eosinophils % (auto) 8.8 %; Est GFR (African American) 47.3; Est GFR (Non-African American) 40.8; Immature Granulocytes # (auto) 0.02 K/uL (0.00-0.02); Immature Granulocytes % (auto) 0.4 %; Lymphocytes # (auto) 0.62 K/uL (1.2-3.4); Lymphocytes % (auto) 10.9 %; Mean Corpuscular Hgb Conc 33.2 g/dL (32-36); Mean Platelet Volume 9.8 fL (7.4-10.4); Monocytes # (auto) 0.49 K/uL (0.11-0.59); Monocytes % (auto) 8.6 %; Neutrophils # (auto) 4.03 K/uL (1.4-6.5); Neutrophils % (auto) 70.9 %; Platelet Count 95 K/uL (130-400); Potassium 4.1 mmol/L (3.5-5.1)
[2021-03-04 18:28] LABS: Albumin Globulin Ratio 0.5 (0.9-2); Globulin 4.8 gm/dl (2.5-4.0); Total Protein 7.4 gm/dl (6.4-8.2)
[2021-03-04] MEDS ORDERED: LORazepam 1 MG/2 ML VIAL IV PRN (19:34)
--- NOTE | 2021-03-04 19:35 | Billing Data ---
Date of Service March 04, 2021 Coding Level of Care Code 40131 Subseq Hosp Care Lvl 3
[2021-03-04] MEDS ORDERED: LACTULOSE 200 GM, WATER, STERILE IRRIG 700 ML, BARCODE IDENTIFIER 1 EA PR SCH (19:45)
--- NOTE | 2021-03-04 20:42 | Communication Note ---
Date of Service: March 04, 2021 CT-A/P w/ PO contrast reviewed. No significant changes. No free air in the peritoneum. Mild left sided inguinal hernia with fluid - no gross entrapment. Re ctal thickening still present. Bowel distention still present, but actually looks improved compared to previous A/P scan. Rectal exam performed given this persistent thickening, ?mild inflammation - objectively -- external sphincter intact. No skin deformities or fistulas. The anus is nontender and non-thickened. The rectal vault is without appreciable palpable deformities. Prostate is rubbery and nontender. Trace stool that is brown in color observed on glove. No significant tenderness/pain throughout exam. Abdominal exam appreciable for +distention with +percussive resonance. Still very painful to palpation, although no rebound. Mild guarding is present. Plan -- GI made aware, discussed with attending on phone alongside Dr. Dey. Will proceed with rectal tube placement. Consider NG tube if unchanged. Bowel rest through tonight, attempt liquid diet again tomorrow. should consider switching to lactulose enemas given placement of this continuous rectal tube. Hemoccult obtained -- screen was negative. Resident Activity Tracking Resident Involvement: Resident Care Provided Care Provided: Adult Hospital Medicine
--- NOTE | 2021-03-04 23:08 | Communication Note ---
Date of Service: March 04, 2021 Subjective: nursing notified that patient was agitated with the newly placed rectal tube, i ordered Ativan and he had become less agitated. I was then notified that the patient had fallen out of bed. When asked if he hit his head he said yes but the patient did not know where. He was having pain consistent with prior exams. His rectal tube came out with the fall. When asked why he got out of bed he brought up that he was trying to go to the bathroom Objective: - patient appropriate w/o agitation - no focal neuro findings on exam - head atraumatic w/ slight bruising on left eye A/P - continue to monitor for any neurologic findings an low threshold for CT head - rectal tube replaced - reinforced to the patient to call for help if he wants to get out of bed
[2021-03-05] MEDS: SIMETHICONE 80 MG CHEW PO SCH ×4 (05:15→21:31)
[2021-03-05 08:31] LABS: Hematocrit (blood only) 27.1 % (42-52); Hemoglobin 9.1 g/dL (14.0-18.0); Mean Corpuscular Hgb Conc 33.6 g/dL (32-36); Mean Corpuscular Volume 89.4 fL (80-100); RDW Standard Deviation 61.6 fL (36.4-46.3); Red Blood Count 3.03 M/uL (4.7-6.1); White Blood Count 5.34 K/uL (4.8-10.8)
[2021-03-05 08:43] LABS: Platelet Count 94 K/uL (130-400)
--- NOTE | 2021-03-05 08:43 | Gastroenterology Progress Note ---
Date of Service March 05, 2021 Assessment & Plan (1) Abdominal pain: Unclear etiology. No SBP noted post paracentesis. CT scan 03/04/2021 no clear etiology. RUQ u/s no clear etiology. Mesenteric U/s neg. Cortisol ok. Abdomen distended again today. Continue rectal tube and if no improvement then NG tube. Labs including CMP and ammonia are pending this morning. ascites --no sbp on cell count and cx neg so far. HSE--no evidence of encephalopathy---continue rifaximin and lactulose. Please refer to supervising physician addendum for further recommendations. Admission and Anticipated Discharge Date Admission Date: February 28, 2021 Supervising Physician Co-Signing Physician Notes I have seen and examined the patient. I agree with note above by JUNIOR Youssef except as noted below. HPI Pt with ongoing abd pain with no improvement. Per nursing patient left in NG only a few minutes and pulled it out. Rectal tube in place is draining. Pt states has back pain also and has pinched nerves in his back. PE Abdomen pos bs, moderately distended (less distended then yesterday) with no guarding nor rebound. A/P abd pain--workup has been extensive. Given back pain and his hx of "pinched nerves in his back" I recommend that primary team investigate neuopathic pain from spinal stenosis causing pain perceived in the abdomen. Subjective Patient is awake and lying on his left side this morning. He is c/o continued significant abdominal pain. Generalized pain but does note that it is worse bilateral lower quadrants this morning. Rectal tube is intact. Patient did have a fall last night trying to get out of bed to go to the restroom. He is alert to person and place this morning. Denies nausea or vomiting. He is NPO. States he feels cold, temperature checked by myself orally 36.4 C Review of Systems Review of Systems: All systems reviewed & are unremarkable except as noted in Subjective Physical Exam Gastrointestinal (Abdomen): hypoactive bowel sounds, distended and tympanic, some guarding but no rebound. Results & Data ([facility]) Vital Signs (Past 12 Hours) Vital Signs Temp Pulse Resp BP Pulse Ox 03/05/21 07:30 36.4 C L 94 H 16 129/81 98 03/04/21 22:37 36.4 C L 114 H 20 134/84 95 03/04/21 21:55 36.8 C 72 18 127/78 96 Laboratory Results - last 24 hr 03/04/21 03/04/21 03/04/21 12:07 17:38 17:38 WBC 5.68 RBC 3.16 L Hgb 9.5 L Hct 28.6 L MCV 90.5 MCH 30.1 MCHC 33.2 RDW Std Deviation 63.0 H RDW Coeff of Anderson 19.0 H Plt Count 95 L MPV 9.8 Immature Gran % (Auto) 0.4 Neut % (Auto) 70.9 Lymph % (Auto) 10.9 [place] % (Auto) 8.6 Eos % (Auto) 8.8 Baso % (Auto) 0.4 Neut # (Auto) 4.03 Lymph # (Auto) 0.62 L [place] # (Auto) 0.49 Eos # (Auto) 0.50 Baso # (Auto) 0.02 Immature Gran # (Auto) 0.02 Echinocytes 1+ Sodium 142 Potassium 4.1 Chloride 114 H Carbon Dioxide 21 Anion Gap 7.0 BUN 15 Creatinine 1.67 H Est Cr Clr Drug Dosing 45.2 Est GFR ( Amer) 47.3 Est GFR (Non-Af Amer) 40.8 BUN/Creatinine Ratio 8.7 L Glucose 120 H POC Glucose 157 H Calcium 8.4 L Total Bilirubin 1.0 AST 48 H ALT 36 Alkaline Phosphatase 117 Ammonia Total Protein 7.4 D Albumin 2.6 L Globulin 4.8 H Albumin/Globulin Ratio 0.5 L Stool Occult Bld Scrn 03/04/21 03/04/21 03/05/21 17:38 17:50 00:16 WBC RBC Hgb Hct MCV MCH MCHC RDW Std Deviation RDW Coeff of Anderson Plt Count MPV Immature Gran % (Auto) Neut % (Auto) Lymph % (Auto) [place] % (Auto) Eos % (Auto) Baso % (Auto) Neut # (Auto) Lymph # (Auto) [place] # (Auto) Eos # (Auto) Baso # (Auto) Immature Gran # (Auto) Echinocytes Sodium Potassium Chloride Carbon Dioxide Anion Gap BUN Creatinine Est Cr Clr Drug Dosing Est GFR ( Amer) Est GFR (Non-Af Amer) BUN/Creatinine Ratio Glucose POC Glucose 129 H 171 H Calcium Total Bilirubin AST ALT Alkaline Phosphatase Ammonia Total Protein Albumin Globulin Albumin/Globulin Ratio Stool Occult Bld Scrn Negative 03/05/21 03/05/21 03/05/21 08:15 08:15 08:15 WBC 5.34 RBC 3.03 L Hgb 9.1 L Hct 27.1 L MCV 89.4 MCH 30.0 MCHC 33.6 RDW Std Deviation 61.6 H RDW Coeff of Anderson 19.0 H Plt Count Pending MPV Immature Gran % (Auto) Neut % (Auto) Lymph % (Auto) [place] % (Auto) Eos % (Auto) Baso % (Auto) Neut # (Auto) Lymph # (Auto) [place] # (Auto) Eos # (Auto) Baso # (Auto) Immature Gran # (Auto) Echinocytes Sodium Pending Potassium Pending Chloride Pending Carbon Dioxide Pending Anion Gap Pending BUN Pending Creatinine Pending Est Cr Clr Drug Dosing Pending Est GFR ( Amer) Pending Est GFR (Non-Af Amer) Pending BUN/Creatinine Ratio Pending Glucose Pending POC Glucose Calcium Pending Total Bilirubin Pending AST Pending ALT Pending Alkaline Phosphatase Pending Ammonia Pending Total Protein Pending Albumin Pending Globulin Pending Albumin/Globulin Ratio Pending Stool Occult Bld Scrn (1) Abdominal pain Abdominal location: generalized Qualified Code(s): R10.84 - Generalized abdominal pain
[2021-03-05 08:53] LABS: Basophils # (auto) 0.01 K/uL (0-0.2); Basophils % (auto) 0.2 %; Echinocytes 1+; Eosinophils # (auto) 0.12 K/uL (0-0.5); Eosinophils % (auto) 2.2 %; Immature Granulocytes # (auto) 0.01 K/uL (0.00-0.02); Immature Granulocytes % (auto) 0.2 %; Lymphocytes # (auto) 0.73 K/uL (1.2-3.4); Lymphocytes % (auto) 13.7 %; Monocytes % (auto) 1.9 %; Neutrophils # (auto) 4.37 K/uL (1.4-6.5); Neutrophils % (auto) 81.8 %
[2021-03-05 08:55] LABS: Albumin Level 2.5 gm/dl (3.4-5.0); Calcium 9.1 mg/dl (8.5-10.1); Creatinine Clr Calc Pharmacy 44.6 ml/min; Est GFR (African American) 46.7; Est GFR (Non-African American) 40.3; Potassium 3.7 mmol/L (3.5-5.1)
[2021-03-05 08:58] LABS: Albumin Globulin Ratio 0.6 (0.9-2); Bilirubin,Total 1.5 mg/dl (0.2-1); Globulin 4.2 gm/dl (2.5-4.0); Total Protein 6.7 gm/dl (6.4-8.2)
[2021-03-05] MEDS: DOCUSATE SODIUM 100 MG CAP PO SCH ×2 (09:28→21:31)
[2021-03-05] MEDS: TAMSULOSIN HCL 0.4 MG CAP PO SCH (09:28)
[2021-03-05] MEDS: LACTULOSE SYRUP 20 GM/30 ML UDC PO SCH ×2 (09:28→21:31)
[2021-03-05] MEDS: FLUTICASONE/VILANTEROL 100/25MCG 14 PUFFS/INHALER INH SCH (09:28)
[2021-03-05] MEDS: SPIRONOLACTONE 100 MG TAB PO SCH (09:28)
[2021-03-05] MEDS: ATORVASTATIN 20 MG TAB PO SCH (09:29)
[2021-03-05] MEDS: FOLIC ACID 1 MG TAB PO SCH (09:29)
[2021-03-05] MEDS: MAGNESIUM OXIDE 400 MG TAB PO SCH (09:29)
[2021-03-05] MEDS: UMECLIDINIUM BROMIDE 62.5MCG/BLISTER 7 PUFFS/INHALER INH SCH (09:29)
[2021-03-05] MEDS: FERROUS SULFATE 325 MG TAB PO SCH (09:29)
[2021-03-05] MEDS: HEPARIN SOD 5,000 UNIT/0.5 ML VIAL SQ SCH ×2 (09:29→21:31)
--- NOTE | 2021-03-05 09:29 | Hospitalist Progress Note ---
Date of Service March 05, 2021 Assessment & Plan (1) Abdominal pain: Alfredo Willis is a 70 yo male with complex PMHx that includes cirrhosis with ascites and esophogeal varices, recent admission earlier this month for hepatic encephalopathy, hepatitis C, COPD, CKD3 and Crohn's disease who was admitted to [facility] on 02/26/2021 for severe abdominal pain, which is likely multifactorial in etiology. Abdominal Pain Liver history as stated above with recent admission for hepatic encephalopathy, worsening abdominal pain x5 days, CT showing ileus, diagnostic paracentesis ruling out SBP --> suspect ileus as cause of abdominal pain although unclear as to why symptoms are persistent for several days. Persistent/worsening abdominal pain today despite NPO x12 hours - likely multifactorial due to occasional Dilaudid use as well as lack of movement in the hospital - maintain NPO status, NG tube placed today, maintain rectal tube - soft restraints (pulled out NG tube on first attempt) - consider spine imaging to evaluate for neurogenic cause of dysmotility if no improvement with NG tube - continue Rifaximin/Lactulose, Simethicone - continue PT/OT - strict I/Os - PRN Tylenol for pain, attempt to avoid narcotic pain medications given ileus - trend CBC daily Hepatic Encephalopathy, resolved AMS in context of cirrhosis, recent admission for hepatic encephalopathy, and no recent BMs, Ammonia 39.4 --> hepatic encephalopathy - lactulose enema x2 on 02/28 followed by loose BMx6 - continue Rifaximin/Lactulose PO - follow closely for changes in mental status AMMY on CKD, AMMY resolved - Cr 1.86 --> 2.26 on 03/01 in context of dehydration (NPO, BM x6), suspect pre- renal injury 2/2 this - improved to 1.84 today after IVFs - continue IVFs with LR @90cc/hr - trend BMP daily Chronic Normocytic Anemia - Hgb baseline 8-9 - suspect 2/2 chronic liver disease - trend CBC daily Liver Cirrhosis/Ascites - MELD score of 17 - diagnostic paracentesis without evidence of SBP - continue home regimen of Rifaximin, Lactulose, Spironolactone, Furosemide, sodium bicarb Non-Anion Gap Metabolic Acidosis ABG 02/28: pH 7.42, pCO2 22, HCO3 14; Anion gap 8.0 --> suspect CKD/high ammonium state as cause of acidosis, with respiratory compensation - suspect chronic, no further evaluation at this time COPD - continue home meds CAD - continue Aspirin HTN - continue Lopressor BPH - continue Flomax GERD - continue Protonix FEN/GI: full liquid diet DVT Prophylaxis: Heparin 5000 units SQ BID Code Status: DNR/DNI Disposition: med/surg Admission and Anticipated Discharge Date Admission Date: February 28, 2021 Supervising Physician Co-Signing Physician Notes Attending attestation Pt seen and examined in concert with Dr. Wilkins. In agreement with the documented findings as noted in the resident documentation with any exceptions or additions as noted here. Persistent diffuse severe abdominal pain that comes in waves. Significant anxiety, likely associated with attempted NGT insertion immediately prior to evaluation. Minimal improvement with rectal tube or lactulose. On examination, S1/S2 nl RRR no MCG. CTAB. Abd NT/ND BS+ve Abdominal pain - GI consultation - continue lactulose, rectal tube and monitor with newly placed NGT for improvement. Pain control is minimal at present due to GI motility impact of narcotic medication but would add PRN if needed. Hepatic encephalopathy with anxiety - lactulose, with concern that it may be worsening abdominal complaint. Intermittent 0.25mg Ativan with monitoring if needed. AMMY (resolved) on CKD III - at baseline, monitor BMP Cirrhosis w/ ascites - continue regimen as noted. Else see resident documentation as noted. Subjective Patient had Ativan 1mg IV push x1 for rectal tube placement; after placement he stood up and fell. No LOC but minor bruise over right eyebrow. Remained A+Ox3 overnight. Copious gas/secretions from rectal tube overnight. This morning patient reports slightly worsened generalized abdominal pain despite NPO x12 hours. Denies fever/chills, chest pain, palpitations, SOB, N/V. Review of Systems Review of Systems: Pertinent positives and negatives mentioned in HPI. Physical Exam Physical Exam: General: A+Ox3, cooperative, NAD HEENT: Atraumatic, normocephalic. Pulm: decreased air entry bilaterally, -wheezes, -rales, -rhonchi. Symmetrical chest rise. No increase work of breathing. No respiratory distress. Cardiac: RRR, -mrg. Radial pulses intact and symmetrical. Abdominal: soft, moderately distended, severe tenderness to palpation in all quadrants with mild guarding but no rebound, hyperactive BS x 4, +fluid wave Results & Data Results & Data ([facility]) Vital Signs (Past 12 Hours) Vital Signs Temp Pulse Resp BP Pulse Ox 03/05/21 07:30 36.4 C L 94 H 16 129/81 98 03/04/21 22:37 36.4 C L 114 H 20 134/84 95 03/04/21 21:55 36.8 C 72 18 127/78 96 Resident Activity Tracking Resident Involvement: Resident Care Provided Care Provided: Adult Hospital Medicine (1) Abdominal pain Abdominal location: generalized Qualified Code(s): R10.84 - Generalized abdominal pain
[2021-03-05] MEDS: METOPROLOL TARTRATE 25 MG TAB PO SCH ×2 (09:30→21:31)
[2021-03-05] MEDS: FINASTERIDE 5 MG TAB PO SCH (09:30)
[2021-03-05] MEDS: CEROVITE ADV FORMULA TAB PO SCH (09:30)
[2021-03-05] MEDS: PANTOprazole 40 MG TAB PO SCH ×2 (09:30→21:31)
[2021-03-05] MEDS: CHOLECALCIFEROL 1,000 UNITS 25 MCG TAB PO SCH (09:31)
[2021-03-05] MEDS: CYANOCOBALAMIN 500 MCG TABLET (VITAMIN B-12) PO SCH (09:31)
[2021-03-05] MEDS: rifAXIMin 550 MG TABLET PO SCH ×2 (09:31→21:31)
[2021-03-05] MEDS: SODIUM BICARBONATE 650 MG TAB PO SCH ×2 (09:31→21:31)
[2021-03-05] MEDS: HYDROmorphone INJ 0.5 MG/0.5 ML SYR IV PRN ×2 (09:42→18:26)
[2021-03-05] MEDS ORDERED: LORazepam 0.25 MG/0.5 ML VIAL IV STA (11:02)
[2021-03-05] MEDS: LACTATED RINGER'S 1,000 ML IV SCH (14:09)
[2021-03-05] MEDS ORDERED: LORazepam 0.5 MG/1 ML VIAL IV STA (14:27)
--- NOTE | 2021-03-05 16:42 | XRay Report ---
XR chest 1V portable CLINICAL HISTORY: NGT placement COMPARISON STUDY: 02/28/2021 FINDINGS: The cardiac and mediastinal contours remain stable. There is mild diffuse interstitial thic kening. There has been interval placement of an enteric tube tip of which projects over the gastric c ardia.[ IMPRESSION: The recently placed enteric tube is positioned with its tip at the level of the gastric c ardia ACT 112: Negative or not required by law. Electronically signed by: Lb Ellis M.D. 03/05/2021 4:40 PM
[2021-03-05] MEDS ORDERED: CHLORASEPTIC 1.4% SOLN 180 ML BTL MT PRN (17:40)
[2021-03-06] MEDS: LACTATED RINGER'S 1,000 ML IV SCH ×3 (01:02→12:01)
[2021-03-06] MEDS: HYDROmorphone INJ 0.5 MG/0.5 ML SYR IV PRN ×3 (01:02→20:00)
[2021-03-06] MEDS: SIMETHICONE 80 MG CHEW PO SCH ×4 (04:00→20:01)
[2021-03-06] MEDS: rifAXIMin 550 MG TABLET PO SCH ×2 (08:43→20:02)
[2021-03-06] MEDS: CYANOCOBALAMIN 500 MCG TABLET (VITAMIN B-12) PO SCH (08:50)
[2021-03-06] MEDS: METOPROLOL TARTRATE 25 MG TAB PO SCH ×2 (08:50→20:02)
[2021-03-06] MEDS: SODIUM BICARBONATE 650 MG TAB PO SCH ×2 (08:50→20:02)
[2021-03-06] MEDS: PANTOprazole 40 MG TAB PO SCH ×2 (08:50→20:02)
[2021-03-06] MEDS: CEROVITE ADV FORMULA TAB PO SCH (08:50)
[2021-03-06] MEDS: CHOLECALCIFEROL 1,000 UNITS 25 MCG TAB PO SCH (08:50)
[2021-03-06] MEDS: MAGNESIUM OXIDE 400 MG TAB PO SCH (08:50)
[2021-03-06] MEDS: TAMSULOSIN HCL 0.4 MG CAP PO SCH (08:51)
[2021-03-06] MEDS: FOLIC ACID 1 MG TAB PO SCH (08:51)
[2021-03-06] MEDS: ATORVASTATIN 20 MG TAB PO SCH (08:51)
[2021-03-06] MEDS: FINASTERIDE 5 MG TAB PO SCH (08:51)
[2021-03-06] MEDS: SPIRONOLACTONE 100 MG TAB PO SCH (08:51)
[2021-03-06] MEDS: FERROUS SULFATE 325 MG TAB PO SCH (08:51)
[2021-03-06] MEDS: FLUTICASONE/VILANTEROL 100/25MCG 14 PUFFS/INHALER INH SCH (08:51)
[2021-03-06] MEDS: LACTULOSE SYRUP 20 GM/30 ML UDC PO SCH ×2 (08:51→20:01)
[2021-03-06 08:52] LABS: Hemoglobin 8.6 g/dL (14.0-18.0); Mean Corpuscular Hgb Conc 33.1 g/dL (32-36); Mean Corpuscular Volume 90.6 fL (80-100); RDW Coefficient of Variation 19.4 % (11.5-14.5); RDW Standard Deviation 64.6 fL (36.4-46.3); Red Blood Count 2.87 M/uL (4.7-6.1); White Blood Count 5.64 K/uL (4.8-10.8)
[2021-03-06] MEDS: HEPARIN SOD 5,000 UNIT/0.5 ML VIAL SQ SCH ×2 (08:52→20:01)
[2021-03-06 09:00] LABS: Mean Platelet Volume 9.5 fL (7.4-10.4); Platelet Count 86 K/uL (130-400)
[2021-03-06 09:13] LABS: Basophils # (auto) 0.02 K/uL (0-0.2); Basophils % (auto) 0.4 %; Eosinophils # (auto) 0.37 K/uL (0-0.5); Eosinophils % (auto) 6.6 %; Immature Granulocytes # (auto) 0.01 K/uL (0.00-0.02); Immature Granulocytes % (auto) 0.2 %; Lymphocytes # (auto) 0.58 K/uL (1.2-3.4); Lymphocytes % (auto) 10.3 %; Monocytes # (auto) 0.49 K/uL (0.11-0.59); Monocytes % (auto) 8.7 %; Neutrophils # (auto) 4.17 K/uL (1.4-6.5); Neutrophils % (auto) 73.8 %
--- NOTE | 2021-03-06 09:14 | Gastroenterology Progress Note ---
Date of Service March 06, 2021 Assessment & Plan (1) Abdominal pain: Unclear etiology. No SBP noted post paracentesis. CT scan 03/04/2021 no clear etiology. RUQ u/s no clear etiology. Mesenteric U/s neg. Cortisol ok. Abdomen distended again today. Continues to complain of generalized abdominal pain today with worsened right lower to mid outer abdominal pain. Continue rectal tube. Patient poorly tolerated NG tube insertion yesterday and pulled within minutes of placement. Labs including are pending this morning. ascites --no sbp on cell count and cx neg. HSE--no evidence of encephalopathy---continue rifaximin and lactulose. Please refer to supervising physician addendum for further recommendations. Admission and Anticipated Discharge Date Admission Date: February 28, 2021 Supervising Physician Co-Signing Physician Notes I have seen and examined the patient. I agree with note above by JUNIOR Youssef except as noted below. HPI Pain somewhat better than yesterday but still significant abd pain. PE Abdomen pos bs, RLQ guarding but no rebound, moderate distension A/P abd pain---extensive workup negative. Wonder about neuropathic pain---primary team has ordered MRI of spine. Subjective The patient is sleeping and awakens easily with verbal stimuli. He continues to complain of significant abdominal discomfort. He reports abdominal pain is right lower to mid outer abdomen. He states pain is also generalized. Rectal tube is intact. Patient did not tolerate NG tube. He does have significant distention noted. He is alert to person and place this morning. He is requesting a shower. Denies nausea or vomiting. He states he feels like "crap". He is n.p.o. Review of Systems Review of Systems: All systems reviewed & are unremarkable except as noted in HPI & below Physical Exam Gastrointestinal (Abdomen): active bowel sounds, distended and tympanic, some guarding but no rebound. Results & Data ([facility]) Vital Signs (Past 12 Hours) Vital Signs Temp Pulse Resp BP BP Pulse Ox 03/06/21 07:35 37.2 C 88 16 154/89 H 96 03/06/21 00:20 36.4 C L 91 H 18 162/84 H 99 03/05/21 21:29 36.4 C L 80 16 151/86 H 96 Laboratory Results - last 24 hr 0403/05/21 03/06/21 12:18 18:05 00:16 WBC RBC Hgb Hct MCV MCH MCHC RDW Std Deviation RDW Coeff of Anderson Plt Count MPV Immature Gran % (Auto) Neut % (Auto) Lymph % (Auto) [place] % (Auto) Eos % (Auto) Baso % (Auto) Neut # (Auto) Lymph # (Auto) [place] # (Auto) Eos # (Auto) Baso # (Auto) Immature Gran # (Auto) Sodium Potassium Chloride Carbon Dioxide Anion Gap BUN Creatinine Est Cr Clr Drug Dosing Est GFR ( Amer) Est GFR (Non-Af Amer) BUN/Creatinine Ratio Glucose POC Glucose 148 H 129 H 121 H Calcium Phosphorus Magnesium Total Bilirubin AST ALT Alkaline Phosphatase Ammonia Total Protein Albumin Globulin Albumin/Globulin Ratio 03/06/21 03/06/21 03/06/21 06:15 08:29 08:29 WBC 5.64 RBC 2.87 L Hgb 8.6 L Hct 26.0 L MCV 90.6 MCH 30.0 MCHC 33.1 RDW Std Deviation 64.6 H RDW Coeff of Anderson 19.4 H Plt Count 86 L MPV 9.5 Immature Gran % (Auto) 0.2 Neut % (Auto) 73.8 Lymph % (Auto) 10.3 [place] % (Auto) 8.7 Eos % (Auto) 6.6 Baso % (Auto) 0.4 Neut # (Auto) 4.17 Lymph # (Auto) 0.58 L [place] # (Auto) 0.49 Eos # (Auto) 0.37 Baso # (Auto) 0.02 Immature Gran # (Auto) 0.01 Sodium Potassium Chloride Carbon Dioxide Anion Gap BUN Creatinine Est Cr Clr Drug Dosing Est GFR ( Amer) Est GFR (Non-Af Amer) BUN/Creatinine Ratio Glucose POC Glucose 110 H Calcium Phosphorus Magnesium Total Bilirubin AST ALT Alkaline Phosphatase Ammonia 30.8 Total Protein Albumin Globulin Albumin/Globulin Ratio 03/06/21 08:29 WBC RBC Hgb Hct MCV MCH MCHC RDW Std Deviation RDW Coeff of Anderson Plt Count MPV Immature Gran % (Auto) Neut % (Auto) Lymph % (Auto) [place] % (Auto) Eos % (Auto) Baso % (Auto) Neut # (Auto) Lymph # (Auto) [place] # (Auto) Eos # (Auto) Baso # (Auto) Immature Gran # (Auto) Sodium Pending Potassium Pending Chloride Pending Carbon Dioxide Pending Anion Gap Pending BUN Pending Creatinine Pending Est Cr Clr Drug Dosing Pending Est GFR ( Amer) Pending Est GFR (Non-Af Amer) Pending BUN/Creatinine Ratio Pending Glucose Pending POC Glucose Calcium Pending Phosphorus Pending Magnesium Pending Total Bilirubin Pending AST Pending ALT Pending Alkaline Phosphatase Pending Ammonia Total Protein Pending Albumin Pending Globulin Pending Albumin/Globulin Ratio Pending (1) Abdominal pain Abdominal location: generalized Qualified Code(s): R10.84 - Generalized abdominal pain
[2021-03-06 09:19] LABS: Albumin Level 2.7 gm/dl (3.4-5.0); BUN Creatinine Ratio 7.7 (10-20); Calcium 8.9 mg/dl (8.5-10.1); Creatinine Clr Calc Pharmacy 53.1 ml/min; Est GFR (African American) 57.6; Est GFR (Non-African American) 49.7; Magnesium 1.7 mg/dl (1.8-2.4); Potassium 3.6 mmol/L (3.5-5.1)
[2021-03-06 09:22] LABS: Albumin Globulin Ratio 0.7 (0.9-2); Bilirubin,Total 1.6 mg/dl (0.2-1); Globulin 3.8 gm/dl (2.5-4.0); Phosphorus 2.6 mg/dl (2.5-4.9); Total Protein 6.5 gm/dl (6.4-8.2)
[2021-03-06] MEDS: UMECLIDINIUM BROMIDE 62.5MCG/BLISTER 7 PUFFS/INHALER INH SCH (10:12)
[2021-03-06] MEDS: DOCUSATE SODIUM 100 MG CAP PO SCH ×2 (10:12→20:03)
--- NOTE | 2021-03-06 12:38 | Hospitalist Progress Note ---
Date of Service March 06, 2021 Assessment & Plan (1) Abdominal pain: Alfredo Willis is a 70 yo male with complex PMHx that includes cirrhosis with ascites and esophogeal varices, recent admission earlier this month for hepatic encephalopathy, hepatitis C, COPD, CKD3 and Crohn's disease who was admitted to [facility] on 02/26/2021 for severe abdominal pain, which is likely multifactorial in etiology. Abdominal Pain Liver history as stated above with recent admission for hepatic encephalopathy, worsening abdominal pain x5 days, CT showing ileus, diagnostic paracentesis ruling out SBP --> suspect ileus as cause of abdominal pain although unclear as to why symptoms are persistent for several days. Persistent abdominal pain today despite NPO>24 hours - ileus, in addition to chronic ascites, remains possible but may also be neuropathic pain/dysmotility. - maintain NPO status and maintain rectal tube - GI on board - appreciate recs - ordered MRI thoracic/lumbar spine w/o contrast to evaluate for neuropathic pain/dysmotility - continue Rifaximin/Lactulose, Simethicone - continue PT/OT - strict I/Os - PRN Tylenol and Dilaudid 0.25 mg IV Q8H for pain (attempting to minimize narcotic pain med use due to suspected ileus) - trend CBC daily Hepatic Encephalopathy, resolved AMS in context of cirrhosis, recent admission for hepatic encephalopathy, and no recent BMs, Ammonia 39.4 --> hepatic encephalopathy - lactulose enema x2 on 02/28 followed by loose BMx6 - continue Rifaximin/Lactulose PO - follow closely for changes in mental status AMMY on CKD, AMMY resolved - Cr 1.86 --> 2.26 on 03/01 in context of dehydration (NPO, BM x6), suspect pre- renal injury 2/2 this - improved to 1.84 today after IVFs - continue IVFs with LR @90cc/hr - trend BMP daily Chronic Normocytic Anemia - Hgb baseline 8-9 - suspect 2/2 chronic liver disease - trend CBC daily Liver Cirrhosis/Ascites - MELD score of 17 - diagnostic paracentesis without evidence of SBP - continue home regimen of Rifaximin, Lactulose, Spironolactone, Furosemide, sodium bicarb Non-Anion Gap Metabolic Acidosis ABG 02/28: pH 7.42, pCO2 22, HCO3 14; Anion gap 8.0 --> suspect CKD/high ammonium state as cause of acidosis, with respiratory compensation - suspect chronic, no further evaluation at this time COPD - continue home meds CAD - continue Aspirin HTN - continue Lopressor BPH - continue Flomax GERD - continue Protonix FEN/GI: full liquid diet DVT Prophylaxis: Heparin 5000 units SQ BID Code Status: DNR/DNI Disposition: med/surg Admission and Anticipated Discharge Date Admission Date: February 28, 2021 Supervising Physician Co-Signing Physician Notes Attending attestation Pt seen and examined in concert with Dr. Wilkins. In agreement with the documented findings as noted in the resident documentation with any exceptions or additions as noted here. Significantly improved abdominal pain today, still diffuse and discomfeited. Patient reports that this happens intermittently - good days and bad but never resolved. History of lower back pain with ?compression with resultant radiative pain whih is positionally amenable but without apparent correlation with abdominal pain reported. On examination, S1/S2 nl RRR no MCG. CTAB. Abd mildly firm/distended and guarded but more anxious re: causing pain with gentle palpation than with actual pain. Abdominal pain - GI consultation - broadening differential to include referred pain from spine with MRI pending for same, though agree w/ GI re: unsure of further GI evaluation which may prove helpful. Reassuring that sx improved but evaluation continues. Hepatic encephalopathy with anxiety - lactulose, with concern that it may be worsening abdominal complaint. Intermittent 0.25mg Ativan with monitoring if needed. AMMY (resolved) on CKD III - at baseline, monitor BMP Cirrhosis w/ ascites - continue regimen as noted. Else see resident documentation as noted. Subjective Patient pulled out NG tube yesterday evening after the third attempt - refused further attempts at placement. Continues to require Dilaudid 0.25 mG IV Q8H (ordered PRN for pain). This morning patient reports that his abdominal pain is a little better although he has increasing back pain from "lying in the hospital bed for so long". Denies fever/chills, chest pain, SOB, N/V. Review of Systems Review of Systems: Pertinent positives and negatives mentioned in HPI. Physical Exam Physical Exam: General: A+Ox3, cooperative, NAD HEENT: Atraumatic, normocephalic. Pulm: decreased air entry bilaterally, -wheezes, -rales, -rhonchi. Symmetrical chest rise. No increase work of breathing. No respiratory distress. Cardiac: RRR, -mrg. Radial pulses intact and symmetrical. Abdominal: soft, moderately distended, severe tenderness to palpation in all quadrants with mild guarding but no rebound, hyperactive BS x 4, +fluid wave - exam stable from yesterday Results & Data Results & Data ([facility]) Vital Signs (Past 12 Hours) Vital Signs Temp Pulse Resp BP Pulse Ox 03/06/21 07:35 37.2 C 88 16 154/89 H 96 Resident Activity Tracking Resident Involvement: Resident Care Provided Care Provided: Adult Hospital Medicine (1) Abdominal pain Abdominal location: generalized Qualified Code(s): R10.84 - Generalized abdominal pain
[2021-03-06] MEDS ORDERED: HYDROmorphone INJ 0.5 MG/0.5 ML SYR IV STA ×2 (15:23→23:43)
[2021-03-06] MEDS: FUROSEMIDE 20 MG TAB PO SCH (20:04)
[2021-03-07] MEDS: LACTATED RINGER'S 1,000 ML IV SCH ×2 (00:06→10:37)
[2021-03-07] MEDS: SIMETHICONE 80 MG CHEW PO SCH ×4 (03:59→20:40)
[2021-03-07] MEDS: HYDROmorphone INJ 0.5 MG/0.5 ML SYR IV PRN (05:38)
--- NOTE | 2021-03-07 07:19 | Magnetic Resonance Report ---
MRI OF THE LUMBAR SPINE WITHOUT CONTRAST CLINICAL HISTORY: Back pain. Abdominal pain. COMPARISON STUDY: No previous studies for comparison. TECHNIQUE: Utilizing a 1.5 Cha magnet and dedicated coil, multiplanar, multiecho imaging of the jacob mbar spine was performed without IV contrast. FINDINGS: For purposes of numbering on this exam, the L5-S1 disc space is assigned to axial image 27 of 30. Axi al images are markedly, must by motion artifact. No intracanalicular mass or fluid collection is pres ent. There is no marrow replacement. Several Schmorl's nodes are noted. The conus terminates at the T 12 level. Ascites is better depicted on CT of March 04, 2021. L1-2: The central canal and neural foramen are patent. L2-3: There is facet arthrosis. Central canal neural foramen are patent. L3-4: Moderate disc space narrowing is noted with mild disc osteophyte complex and facet arthrosis. T he central canal is patent. The neural foramen are patent. L4-5: There is marked disc space narrowing. There is no central canal stenosis. There is no significa nt neural foraminal stenosis. L5-S1: Central canal and neural foramen are patent. IMPRESSION: 1. No central canal stenosis. Multilevel degenerative disc disease and facet arthrosis without signif icant neural foraminal stenosis. 2. Axial images compromised by motion artifact. 3. No acute lumbar spine fracture. 4. Ascites, better depicted on prior abdominal CT. ACT 112: Negative or not required by law. Electronically signed by: Ta Nash M.D. 03/07/2021 7:18 AM
[2021-03-07 07:31] LABS: Hematocrit (blood only) 26.9 % (42-52); Hemoglobin 8.8 g/dL (14.0-18.0); Mean Corpuscular Hgb Conc 32.7 g/dL (32-36); Mean Corpuscular Volume 91.8 fL (80-100); RDW Coefficient of Variation 19.5 % (11.5-14.5); Red Blood Count 2.93 M/uL (4.7-6.1)
[2021-03-07 08:00] LABS: Mean Platelet Volume 9.5 fL (7.4-10.4); Platelet Count 85 K/uL (130-400)
[2021-03-07 08:03] LABS: Basophils # (auto) 0.02 K/uL (0-0.2); Basophils % (auto) 0.4 %; Eosinophils # (auto) 0.38 K/uL (0-0.5); Eosinophils % (auto) 7.2 %; Immature Granulocytes # (auto) 0.02 K/uL (0.00-0.02); Immature Granulocytes % (auto) 0.4 %; Lymphocytes # (auto) 0.49 K/uL (1.2-3.4); Lymphocytes % (auto) 9.2 %; Monocytes # (auto) 0.53 K/uL (0.11-0.59); Neutrophils # (auto) 3.86 K/uL (1.4-6.5); Neutrophils % (auto) 72.8 %; RBC Morphology Unremarkable
[2021-03-07 08:08] LABS: Albumin Level 2.5 gm/dl (3.4-5.0); BUN Creatinine Ratio 7.7 (10-20); Calcium 8.9 mg/dl (8.5-10.1); Est GFR (African American) 56.1; Est GFR (Non-African American) 48.4; Magnesium 1.7 mg/dl (1.8-2.4); Phosphorus 2.9 mg/dl (2.5-4.9); Potassium 3.7 mmol/L (3.5-5.1)
[2021-03-07 08:10] LABS: Albumin Globulin Ratio 0.6 (0.9-2); Bilirubin,Total 1.5 mg/dl (0.2-1); Globulin 3.9 gm/dl (2.5-4.0); Total Protein 6.4 gm/dl (6.4-8.2)
--- NOTE | 2021-03-07 08:35 | Magnetic Resonance Report ---
MRI OF THE THORACIC SPINE WITHOUT IV CONTRAST CLINICAL HISTORY: Thoracic back pain. COMPARISON STUDY: Abdominal CT dated 03/04/2021. TECHNIQUE: MRI of the thoracic spine is performed utilizing various T1 and T2-weighted sequences in t he axial and sagittal planes. IV contrast was not administered for this examination. The examination is severely compromised by motion artifact. FINDINGS: Vertebral body height and alignment are maintained throughout the thoracic spine. Marrow si gnal intensity is heterogeneous. No destructive lesion is seen. The transverse and spinous processes are grossly intact. Schmorl's nodes are seen at T7-T8 and in the inferior endplate of T10. Tiny anter ior osteophytes are seen throughout. Degenerative disc desiccation and mild loss of height is noted t hroughout the thoracic region. There is no evidence of disc herniation or central canal stenosis. The re is no evidence of high-grade neural foraminal stenosis. The thoracic spinal cord is normal in morp hology and signal intensity. The paraspinous soft tissues are normal as imaged. Trace pleural effusio ns are noted. IMPRESSION: 1. Significantly motion compromised examination. 2. There is no evidence of disc herniation or central canal stenosis. 3. No acute osseous abnormality is identified. Dictated: 03/07/2021 8:05 AM Transcribed: 03/07/2021 8:19 AM Yadira [id number] [email or web address] Electronically signed by: Titi Jara M.D. 03/07/2021 8:33 AM
--- NOTE | 2021-03-07 08:46 | Gastroenterology Progress Note ---
Date of Service March 07, 2021 Assessment & Plan (1) Abdominal pain: Abdominal pain: Unclear etiology. MRI thoracic and lumbar spine demonstrated no evidence of disc herniation or central canal stenosis. Abdomen distention and generalized abdominal pain continue today. Continue rectal tube. Patient has poorly tolerated NG tube insertion pulled within minutes of placement. ascites --no sbp on cell count and cx neg. HSE--no evidence of encephalopathy---continue rifaximin and lactulose. Please refer to supervising physician addendum for further recommendations. Admission and Anticipated Discharge Date Admission Date: February 28, 2021 Supervising Physician Co-Signing Physician Notes I have seen and examined the patient. I agree with note above by JUNIOR Youssef except as noted below. HPI Pt improved today but he has been NPO. PE Abdomen pos bs, moderate distension and tympany, no guarding nor rebound A/P abd pain/distension---note that naltrexone started today. This might improve gut function. Subjective The patient is sleeping and awakens easily with verbal stimuli. He complains of continued abdominal discomfort this morning. Reports that pain is generalized but complains of increased pain with palpation of right upper and lower quadrant. Rectal tube is intact. Patient has continued distention of the abdomen however abdomen is somewhat softer this morning than previous. He is alert to person place this morning. Denies nausea or vomiting. He states he fe els awful. He continues to be n.p.o. PT notes are reviewed - patient is out of bed but not ambulating. Review of Systems Review of Systems: All systems reviewed & are unremarkable except as noted in HPI & below Physical Exam Gastrointestinal (Abdomen): active bowel sounds, distended and tympanic, some guarding but no rebound. Results & Data ([facility]) Vital Signs (Past 12 Hours) Vital Signs Temp Pulse Resp BP Pulse Ox 03/07/21 07:16 36.6 C 74 16 124/73 92 Laboratory Results - last 24 hr 03/06/21 03/06/21 03/06/21 08:29 08:29 08:29 WBC 5.64 RBC 2.87 L Hgb 8.6 L Hct 26.0 L MCV 90.6 MCH 30.0 MCHC 33.1 RDW Std Deviation 64.6 H RDW Coeff of Anderson 19.4 H Plt Count 86 L MPV 9.5 Immature Gran % (Auto) 0.2 Neut % (Auto) 73.8 Lymph % (Auto) 10.3 Glasscock % (Auto) 8.7 Eos % (Auto) 6.6 Baso % (Auto) 0.4 Neut # (Auto) 4.17 Lymph # (Auto) 0.58 L Glasscock # (Auto) 0.49 Eos # (Auto) 0.37 Baso # (Auto) 0.02 Immature Gran # (Auto) 0.01 RBC Morphology Sodium 144 Potassium 3.6 Chloride 116 H Carbon Dioxide 19 L Anion Gap 9.0 BUN 11 Creatinine 1.42 H Est Cr Clr Drug Dosing 53.1 Est GFR ( Amer) 57.6 Est GFR (Non-Af Amer) 49.7 BUN/Creatinine Ratio 7.7 L Glucose 112 H POC Glucose Calcium 8.9 Phosphorus 2.6 Magnesium 1.7 L Total Bilirubin 1.6 H AST 38 H ALT 28 Alkaline Phosphatase 89 Ammonia 30.8 Total Protein 6.5 Albumin 2.7 L Globulin 3.8 Albumin/Globulin Ratio 0.7 L 03/06/21 03/06/21 03/07/21 12:16 18:14 00:25 WBC RBC Hgb Hct MCV MCH MCHC RDW Std Deviation RDW Coeff of Anderson Plt Count MPV Immature Gran % (Auto) Neut % (Auto) Lymph % (Auto) Glasscock % (Auto) Eos % (Auto) Baso % (Auto) Neut # (Auto) Lymph # (Auto) Glasscock # (Auto) Eos # (Auto) Baso # (Auto) Immature Gran # (Auto) RBC Morphology Sodium Potassium Chloride Carbon Dioxide Anion Gap BUN Creatinine Est Cr Clr Drug Dosing Est GFR ( Amer) Est GFR (Non-Af Amer) BUN/Creatinine Ratio Glucose POC Glucose 132 H 129 H 113 H Calcium Phosphorus Magnesium Total Bilirubin AST ALT Alkaline Phosphatase Ammonia Total Protein Albumin Globulin Albumin/Globulin Ratio 03/07/21 03/07/21 03/07/21 06:06 07:07 07:07 WBC 5.30 RBC 2.93 L Hgb 8.8 L Hct 26.9 L MCV 91.8 MCH 30.0 MCHC 32.7 RDW Std Deviation 65.0 H RDW Coeff of Anderson 19.5 H Plt Count 85 L MPV 9.5 Immature Gran % (Auto) 0.4 Neut % (Auto) 72.8 Lymph % (Auto) 9.2 Glasscock % (Auto) 10.0 Eos % (Auto) 7.2 Baso % (Auto) 0.4 Neut # (Auto) 3.86 Lymph # (Auto) 0.49 L Glasscock # (Auto) 0.53 Eos # (Auto) 0.38 Baso # (Auto) 0.02 Immature Gran # (Auto) 0.02 RBC Morphology Unremarkable Sodium 144 Potassium 3.7 Chloride 117 H Carbon Dioxide 21 Anion Gap 6.0 BUN 11 Creatinine 1.45 H Est Cr Clr Drug Dosing 52.0 Est GFR ( Amer) 56.1 Est GFR (Non-Af Amer) 48.4 BUN/Creatinine Ratio 7.7 L Glucose 109 H POC Glucose 108 H Calcium 8.9 Phosphorus 2.9 Magnesium 1.7 L Total Bilirubin 1.5 H AST 35 ALT 25 Alkaline Phosphatase 85 Ammonia Total Protein 6.4 Albumin 2.5 L Globulin 3.9 Albumin/Globulin Ratio 0.6 L 03/07/21 07:11 WBC RBC Hgb Hct MCV MCH MCHC RDW Std Deviation RDW Coeff of Anderson Plt Count MPV Immature Gran % (Auto) Neut % (Auto) Lymph % (Auto) Glasscock % (Auto) Eos % (Auto) Baso % (Auto) Neut # (Auto) Lymph # (Auto) Glasscock # (Auto) Eos # (Auto) Baso # (Auto) Immature Gran # (Auto) RBC Morphology Sodium Potassium Chloride Carbon Dioxide Anion Gap BUN Creatinine Est Cr Clr Drug Dosing Est GFR ( Amer) Est GFR (Non-Af Amer) BUN/Creatinine Ratio Glucose POC Glucose Calcium Phosphorus Magnesium Total Bilirubin AST ALT Alkaline Phosphatase Ammonia 21.5 Total Protein Albumin Globulin Albumin/Globulin Ratio 03/06/2021: Thoracic and lumbar spine MRI demonstrated no evidence of disc her niation or central canal stenosis. There is no acute osseous abnormality identified there is multilevel degenerative disc disease and facet arthrosis without significant neuroforaminal stenosis. (1) Abdominal pain Abdominal location: generalized Qualified Code(s): R10.84 - Generalized abdominal pain
--- NOTE | 2021-03-07 08:53 | Hospitalist Progress Note ---
Date of Service March 07, 2021 Assessment & Plan (1) Abdominal pain: Alfredo Willis is a 70 yo male with complex PMHx that includes cirrhosis with ascites and esophogeal varices, recent admission earlier this month for hepatic encephalopathy, hepatitis C, COPD, CKD3 and Crohn's disease who was admitted to [facility] on 02/26/2021 for severe abdominal pain, which is likely multifactorial in etiology. Abdominal Pain Liver history as stated above with recent admission for hepatic encephalopathy, worsening abdominal pain x5 days, CT showing ileus, diagnostic paracentesis ruling out SBP --> suspect ileus as cause of abdominal pain although unclear as to why symptoms are persistent for several days. Persistent abdominal pain today despite NPO>48 hours - ileus, in addition to chronic ascites, remains possibility. - maintain NPO status and maintain rectal tube - GI on board - appreciate recs - MRI thoracic/lumbar spine w/o contrast negative for significant stenosis/disc herniation/fracture - continue Rifaximin/Lactulose, Simethicone - started Methylnaltrexone 12mg SQ Q2D, to address possible opiate-induced ileus - continue PT/OT - strict I/Os - Dilaudid 0.25 mg IV Q8H for pain - trend CBC daily Hepatic Encephalopathy, resolved AMS in context of cirrhosis, recent admission for hepatic encephalopathy, and no recent BMs, Ammonia 39.4 --> hepatic encephalopathy - lactulose enema x2 on 02/28 followed by loose BMx6 - continue Rifaximin/Lactulose PO - follow closely for changes in mental status AMMY on CKD, AMMY resolved - Cr 1.86 --> 2.26 on 03/01 in context of dehydration (NPO, BM x6), suspect pre- renal injury 2/2 this - currently Cr stable at 1.4-1.5 (at chronic baseline) - continue IVFs with LR @90cc/hr while NPO - trend BMP daily Chronic Normocytic Anemia - Hgb baseline 8-9 - suspect 2/2 chronic liver disease - trend CBC daily Liver Cirrhosis/Ascites - MELD score of 17 - diagnostic paracentesis without evidence of SBP - continue home regimen of Rifaximin, Lactulose, Spironolactone, Furosemide, sodium bicarb Non-Anion Gap Metabolic Acidosis ABG 02/28: pH 7.42, pCO2 22, HCO3 14; Anion gap 8.0 --> suspect CKD/high ammonium state as cause of acidosis, with respiratory compensation - suspect chronic, no further evaluation at this time COPD - continue home meds CAD - continue Aspirin HTN - continue Lopressor BPH - continue Flomax GERD - continue Protonix FEN/GI: full liquid diet DVT Prophylaxis: Heparin 5000 units SQ BID Code Status: DNR/DNI Disposition: med/surg with tele - transferred to tele status for possible Neostigmine administration tomorrow Admission and Anticipated Discharge Date Admission Date: February 28, 2021 Supervising Physician Co-Signing Physician Notes Attending attestation Pt seen and examined in concert with Dr. Wilkins. In agreement with the documented findings as noted in the resident documentation with any exceptions or additions as noted here. Return of pain to worse than baseline but improved from 2 days ago without apparent trigger or cause. 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 CTAB. Abd increased firm/distended and guarded Abdominal pain - GI consultation - negative MRI evaluation of spine for apparent cause. Considering lack of response, will trial methylnaltrexone and consider pyridostigmine Hepatic encephalopathy with anxiety - continue lactulose, rectal tube. Intermittent 0.25mg Ativan with monitoring if needed. AMMY (resolved) on CKD III - at baseline, monitor BMP Cirrhosis w/ ascites - continue regimen as noted. Else see resident documentation as noted. Subjective Continues to require Dilaudid 0.25mg IV Q8H (in addition to another Dilaudid 0.25mg IV x1 overnight) to control persistent generalized abdominal pain. This morning he reports that he has chronic abdominal pain since before hospitalization - current pain is slightly worse than baseline. Denies fever/chills, chest pain, SOB, N/V, back pain. Review of Systems Review of Systems: Pertinent positives and negatives mentioned in HPI. Physical Exam Physical Exam: General: A+Ox3, cooperative, NAD HEENT: Atraumatic, normocephalic. Pulm: decreased air entry bilaterally, -wheezes, -rales, -rhonchi. Symmetrical chest rise. No increase work of breathing. No respiratory distress. Cardiac: RRR, -mrg. Radial pulses intact and symmetrical. Abdominal: soft, moderately distended, severe tenderness to palpation in all quadrants with mild guarding but no rebound, hyperactive BS x 4, +fluid wave - exam stable from yesterday Results & Data Results & Data ([facility]) Vital Signs (Past 12 Hours) Vital Signs Temp Pulse Resp BP Pulse Ox 03/07/21 07:16 36.6 C 74 16 124/73 92 Resident Activity Tracking Resident Involvement: Resident Care Provided Care Provided: Adult Hospital Medicine (1) Abdominal pain Abdominal location: generalized Qualified Code(s): R10.84 - Generalized abdominal pain
[2021-03-07] MEDS: FLUTICASONE/VILANTEROL 100/25MCG 14 PUFFS/INHALER INH SCH (09:24)
[2021-03-07] MEDS: FINASTERIDE 5 MG TAB PO SCH (09:25)
[2021-03-07] MEDS: METOPROLOL TARTRATE 25 MG TAB PO SCH ×2 (09:25→20:41)
[2021-03-07] MEDS: CYANOCOBALAMIN 500 MCG TABLET (VITAMIN B-12) PO SCH (09:25)
[2021-03-07] MEDS: SODIUM BICARBONATE 650 MG TAB PO SCH ×2 (09:25→21:44)
[2021-03-07] MEDS: UMECLIDINIUM BROMIDE 62.5MCG/BLISTER 7 PUFFS/INHALER INH SCH (09:25)
[2021-03-07] MEDS: TAMSULOSIN HCL 0.4 MG CAP PO SCH (09:25)
[2021-03-07] MEDS: PANTOprazole 40 MG TAB PO SCH ×2 (09:25→20:42)
[2021-03-07] MEDS: rifAXIMin 550 MG TABLET PO SCH ×2 (09:25→20:42)
[2021-03-07] MEDS: FOLIC ACID 1 MG TAB PO SCH (09:25)
[2021-03-07] MEDS: SPIRONOLACTONE 100 MG TAB PO SCH (09:25)
[2021-03-07] MEDS: ATORVASTATIN 20 MG TAB PO SCH (09:25)
[2021-03-07] MEDS: CEROVITE ADV FORMULA TAB PO SCH (09:25)
[2021-03-07] MEDS: CHOLECALCIFEROL 1,000 UNITS 25 MCG TAB PO SCH (09:25)
[2021-03-07] MEDS: LACTULOSE SYRUP 20 GM/30 ML UDC PO SCH ×2 (09:25→20:36)
[2021-03-07] MEDS: MAGNESIUM OXIDE 400 MG TAB PO SCH (09:25)
[2021-03-07] MEDS: FERROUS SULFATE 325 MG TAB PO SCH (09:25)
[2021-03-07] MEDS: HEPARIN SOD 5,000 UNIT/0.5 ML VIAL SQ SCH ×2 (09:26→20:38)
[2021-03-07] MEDS: MAGNESIUM SULFATE / D5W 1 GM/100 ML BAG IV SCH ×2 (09:27→11:29)
[2021-03-07] MEDS: DOCUSATE SODIUM 100 MG CAP PO SCH ×2 (09:27→21:44)
[2021-03-07] MEDS: FUROSEMIDE 20 MG TAB PO SCH ×2 (10:24→20:42)
[2021-03-07] MEDS: HYDROmorphone INJ 0.5 MG/0.5 ML SYR IV SCH ×2 (10:33→18:14)
[2021-03-07] MEDS: METHYLNALTREXONE BROMIDE 12 MG/0.6 ML VIAL SQ SCH (12:10)
[2021-03-07] MEDS: ACETAMINOPHEN 325 MG TAB PO PRN (12:49)
[2021-03-07] MEDS ORDERED: HYDROmorphone INJ 0.5 MG/0.5 ML SYR IV STA (21:31)
[2021-03-07] MEDS ORDERED: MELATONIN 3 MG TAB PO PRN (21:32)
[2021-03-08] MEDS: LACTATED RINGER'S 1,000 ML IV SCH ×2 (00:46→14:54)
[2021-03-08] MEDS: HYDROmorphone INJ 0.5 MG/0.5 ML SYR IV SCH ×2 (02:28→10:03)
[2021-03-08] MEDS: SIMETHICONE 80 MG CHEW PO SCH ×4 (03:45→21:17)
[2021-03-08] MEDS ORDERED: HYDROmorphone INJ 0.5 MG/0.5 ML SYR IV STA (06:01)
[2021-03-08 06:31] LABS: Hematocrit (blood only) 27.2 % (42-52); Hemoglobin 8.9 g/dL (14.0-18.0); Mean Corpuscular Hemoglobin 29.8 pg (25-34); Mean Corpuscular Hgb Conc 32.7 g/dL (32-36); RDW Coefficient of Variation 19.5 % (11.5-14.5); RDW Standard Deviation 65.2 fL (36.4-46.3); Red Blood Count 2.99 M/uL (4.7-6.1); White Blood Count 4.06 K/uL (4.8-10.8)
[2021-03-08] MEDS ORDERED: ACETAMINOPHEN 325 MG TAB PO PRN (06:38)
[2021-03-08 06:57] LABS: Basophils # (auto) 0.03 K/uL (0-0.2); Basophils % (auto) 0.7 %; Eosinophils # (auto) 0.41 K/uL (0-0.5); Eosinophils % (auto) 10.1 %; Immature Granulocytes # (auto) 0.01 K/uL (0.00-0.02); Immature Granulocytes % (auto) 0.2 %; Lymphocytes # (auto) 0.47 K/uL (1.2-3.4); Lymphocytes % (auto) 11.6 %; Mean Platelet Volume 9.9 fL (7.4-10.4); Monocytes # (auto) 0.49 K/uL (0.11-0.59); Monocytes % (auto) 12.1 %; Neutrophils # (auto) 2.65 K/uL (1.4-6.5); Neutrophils % (auto) 65.3 %; Platelet Count 97 K/uL (130-400); Platelet Estimate Decreased (Normal)
[2021-03-08 07:03] LABS: Albumin Level 2.3 gm/dl (3.4-5.0); BUN Creatinine Ratio 7.5 (10-20); Calcium 8.2 mg/dl (8.5-10.1); Est GFR (African American) 54.8; Est GFR (Non-African American) 47.3; Magnesium 1.9 mg/dl (1.8-2.4); Potassium 3.7 mmol/L (3.5-5.1)
[2021-03-08 07:06] LABS: Albumin Globulin Ratio 0.5 (0.9-2); Bilirubin,Total 1.5 mg/dl (0.2-1); Globulin 4.3 gm/dl (2.5-4.0); Phosphorus 2.9 mg/dl (2.5-4.9); Total Protein 6.6 gm/dl (6.4-8.2)
--- NOTE | 2021-03-08 07:09 | Hospitalist Progress Note ---
Date of Service March 08, 2021 Assessment & Plan (1) Abdominal pain: Alfredo Willis is a 70 yo male with complex PMHx that includes cirrhosis with ascites and esophogeal varices, recent admission earlier this month for hepatic encephalopathy, hepatitis C, COPD, CKD3 and Crohn's disease who was admitted to [facility] on 02/26/2021 for severe abdominal pain, which is likely multifactorial in etiology. Abdominal Pain Liver history as stated above with recent admission for hepatic encephalopathy, worsening abdominal pain x5 days, CT showing ileus, diagnostic paracentesis ruling out SBP --> suspect ileus as cause of abdominal pain although unclear as to why symptoms are persistent for several days. Only slightly abdominal pain today despite NPO, trial of Realistor yesterday - ileus, in addition to chronic ascites, are likely contributors to what will likely be chronic abdominal pain. - trial of clear liquid diet today, maintain rectal tube - GI on board - appreciate recs - continue Realistor, Rifaximin/Lactulose, Simethicone - continue PT/OT - strict I/Os - Dilaudid 0.25 mg IV Q8H for pain - consider Palliative consult to discuss chronic pain medication regimen to maximize comfort level after discharge - trend CBC daily Passive Suicidal Ideation Patient reports not wanting to continue living with abdominal pain and appears tearful/dysphoric on exam. - Psych consult placed Hepatic Encephalopathy, resolved AMS in context of cirrhosis, recent admission for hepatic encephalopathy, and no recent BMs, Ammonia 39.4 --> hepatic encephalopathy - lactulose enema x2 on 02/28 followed by loose BMx6 - continue Rifaximin/Lactulose PO - follow closely for changes in mental status AMMY on CKD, AMMY resolved - Cr 1.86 --> 2.26 on 03/01 in context of dehydration (NPO, BM x6), suspect pre-renal injury 2/2 this - currently Cr stable at 1.4-1.5 (at chronic baseline) - continue IVFs with LR @90cc/hr - trend BMP daily Chronic Normocytic Anemia - Hgb baseline 8-9 - suspect 2/2 chronic liver disease - trend CBC daily Liver Cirrhosis/Ascites - MELD score of 17 - diagnostic paracentesis without evidence of SBP - continue home regimen of Rifaximin, Lactulose, Spironolactone, Furosemide, sodium bicarb Non-Anion Gap Metabolic Acidosis ABG 02/28: pH 7.42, pCO2 22, HCO3 14; Anion gap 8.0 --> suspect CKD/high ammonium state as cause of acidosis, with respiratory compensation - suspect chronic, no further evaluation at this time COPD - continue home meds CAD - continue Aspirin HTN - continue Lopressor BPH - continue Flomax GERD - continue Protonix FEN/GI: full liquid diet DVT Prophylaxis: Heparin 5000 units SQ BID Code Status: DNR/DNI Disposition: med/surg with tele - transferred to tele status for possible Neostigmine administration tomorrow Admission and Anticipated Discharge Date Admission Date: February 28, 2021 Supervising Physician Co-Signing Physician Notes Attending attestation Pt seen and examined in concert with Dr. Wilkins. In agreement with the documented findings as noted in the resident documentation with any exceptions or additions as noted here. Significant improvement in diffuse abdominal pain following methylnaltrexone and increased rectal tube output, now better than home baseline. Tolerating 0.25mg dilaudid with control as well. On examination, S1/S2 nl RRR no MCG. CTAB. Abd remains distended and TTP, though improved from previous. Chronic undifferentiated abdominal pain - concern for ileus - sigificant improvement, will monitor and tenatively continue methylnaltrexone and rectal tube, d/w GI tomorrow. Occasional supplemental dilaudid over 0.25mg OK Passive suicidal ideation - was previously tearful as pain was persistent and not able to be ameliorated. Psych consultation placed but mood and ideation considerably improved today. Else see resident documentation as noted. Subjective Patient required Dilaudid 0.25mg IV x2 overnight in addition to Q8H scheduled for abdominal pain. This morning patient reports that pain is slightly improved compared to yesterday. He would like to try clear liquid diet as he feels hungry for soup. When we discussed the fact that his abdominal pain may be a chronic challenge, he became tearful and said that he does not want to live with pain. He denies fever/chills, chest pain, SOB, N/V. Review of Systems Review of Systems: Pertinent positives and negatives mentioned in HPI. Physical Exam Physical Exam: General: A+Ox3, cooperative, NAD HEENT: Atraumatic, normocephalic. Pulm: decreased air entry bilaterally, -wheezes, -rales, -rhonchi. Symmetrical chest rise. No increase work of breathing. No respiratory distress. Cardiac: RRR, -mrg. Radial pulses intact and symmetrical. Abdominal: soft, moderately distended, moderate tenderness to palpation in all quadrants without guarding or rebound, hyperactive BS x 4, +fluid wave - exam improved from yesterday Results & Data Results & Data ([facility]) Vital Signs (Past 12 Hours) Vital Signs Temp Pulse Pulse Resp BP BP Pulse Ox 03/08/21 03:57 36.7 C 65 16 115/67 93 03/08/21 00:05 60 03/07/21 23:16 36.5 C 68 18 132/75 92 03/07/21 19:34 36.5 C 79 18 134/85 92 Resident Activity Tracking Resident Involvement: Resident Care Provided Care Provided: Adult Hospital Medicine (1) Abdominal pain Abdominal location: generalized Qualified Code(s): R10.84 - Generalized abdominal pain
--- NOTE | 2021-03-08 08:29 | Gastroenterology Progress Note ---
Date of Service March 08, 2021 Assessment & Plan (1) Abdominal pain: Abdominal pain: Unclear etiology. Abdomen distention and generalized abdominal pain continue. Naltrexone started 03/07/2021 to address possible opiate-induced ileus. This might improve gut function. Continue rectal tube. ascites --no sbp on cell count and cx neg. HSE--no evidence of encephalopathy---continue rifaximin and lactulose. Please refer to supervising physician addendum for further recommendations. Admission and Anticipated Discharge Date Admission Date: February 28, 2021 Supervising Physician Co-Signing Physician Notes I have seen and examined the patient. I agree with note above by JUNIOR Youssef except as noted below. HPI Pt states had abd pain this am but currently feels the best he has this admit. KUB report today less bowel distension and less stool in colon. PE Abdomen pos bs, moderate distension, no guarding nor rebound A/P abd pain---at least at present doing well. continue Naltrexone Subjective Patient reports that he had a rough night. States he was having a lot of abdominal pain. He was trying to get out of bed a lot through the night. This morning he states abdominal pain is minimally improved. Pain today is right mid to lower abdomen. Denies nausea or vomiting. Rectal tube is intact - air and loose/liquid stool noted in collection bag. Remains NPO. Review of Systems Review of Systems: All systems reviewed & are unremarkable except as noted in HPI & below Physical Exam Gastrointestinal (Abdomen): active bowel sounds, distended and tympanic, some guarding but no rebound. Skin: heels are reddened and heel protector is rolled up in sock - nurse aware Results & Data ([facility]) Vital Signs (Past 12 Hours) Vital Signs Temp Pulse Pulse Resp BP BP Pulse Ox 03/08/21 07:44 36.4 C L 74 16 111/72 94 03/08/21 03:57 36.7 C 65 16 115/67 93 03/08/21 00:05 60 03/07/21 23:16 36.5 C 68 18 132/75 92 Laboratory Results - last 24 hr 03/07/21 03/07/21 03/08/21 12:07 17:55 05:49 WBC RBC Hgb Hct MCV MCH MCHC RDW Std Deviation RDW Coeff of Anderson Plt Count MPV Immature Gran % (Auto) Neut % (Auto) Lymph % (Auto) Citrus % (Auto) Eos % (Auto) Baso % (Auto) Neut # (Auto) Lymph # (Auto) Citrus # (Auto) Eos # (Auto) Baso # (Auto) Immature Gran # (Auto) Platelet Estimate Sodium 145 Potassium 3.7 Chloride 117 H Carbon Dioxide 20 L Anion Gap 8.0 BUN 11 Creatinine 1.48 H Est Cr Clr Drug Dosing 51.0 Est GFR ( Amer) 54.8 Est GFR (Non-Af Amer) 47.3 BUN/Creatinine Ratio 7.5 L Glucose 100 H POC Glucose 160 H 120 H Calcium 8.2 L Phosphorus 2.9 Magnesium 1.9 Total Bilirubin 1.5 H AST 33 ALT 26 Alkaline Phosphatase 88 Total Protein 6.6 Albumin 2.3 L Globulin 4.3 H Albumin/Globulin Ratio 0.5 L // 05:49 WBC 4.06 L RBC 2.99 L Hgb 8.9 L Hct 27.2 L MCV 91.0 MCH 29.8 MCHC 32.7 RDW Std Deviation 65.2 H RDW Coeff of Anderson 19.5 H Plt Count 97 L MPV 9.9 Immature Gran % (Auto) 0.2 Neut % (Auto) 65.3 Lymph % (Auto) 11.6 Citrus % (Auto) 12.1 Eos % (Auto) 10.1 Baso % (Auto) 0.7 Neut # (Auto) 2.65 Lymph # (Auto) 0.47 L Citrus # (Auto) 0.49 Eos # (Auto) 0.41 Baso # (Auto) 0.03 Immature Gran # (Auto) 0.01 Platelet Estimate Decreased L Sodium Potassium Chloride Carbon Dioxide Anion Gap BUN Creatinine Est Cr Clr Drug Dosing Est GFR ( Amer) Est GFR (Non-Af Amer) BUN/Creatinine Ratio Glucose POC Glucose Calcium Phosphorus Magnesium Total Bilirubin AST ALT Alkaline Phosphatase Total Protein Albumin Globulin Albumin/Globulin Ratio (1) Abdominal pain Abdominal location: generalized Qualified Code(s): R10.84 - Generalized abdominal pain
[2021-03-08] MEDS: METOPROLOL TARTRATE 25 MG TAB PO SCH ×3 (08:45→21:23)
[2021-03-08] MEDS: FUROSEMIDE 20 MG TAB PO SCH ×2 (08:45→21:23)
[2021-03-08] MEDS: CYANOCOBALAMIN 500 MCG TABLET (VITAMIN B-12) PO SCH (08:45)
[2021-03-08] MEDS: FINASTERIDE 5 MG TAB PO SCH (08:46)
[2021-03-08] MEDS: CHOLECALCIFEROL 1,000 UNITS 25 MCG TAB PO SCH (08:46)
[2021-03-08] MEDS: FERROUS SULFATE 325 MG TAB PO SCH (08:46)
[2021-03-08] MEDS: MAGNESIUM OXIDE 400 MG TAB PO SCH (08:46)
[2021-03-08] MEDS: SPIRONOLACTONE 100 MG TAB PO SCH (08:46)
[2021-03-08] MEDS: ATORVASTATIN 20 MG TAB PO SCH (08:47)
[2021-03-08] MEDS: CEROVITE ADV FORMULA TAB PO SCH (08:47)
[2021-03-08] MEDS: rifAXIMin 550 MG TABLET PO SCH ×2 (08:47→21:18)
[2021-03-08] MEDS: TAMSULOSIN HCL 0.4 MG CAP PO SCH (08:47)
[2021-03-08] MEDS: FOLIC ACID 1 MG TAB PO SCH (08:48)
[2021-03-08] MEDS: LACTULOSE SYRUP 20 GM/30 ML UDC PO SCH ×2 (08:48→21:17)
[2021-03-08] MEDS: PANTOprazole 40 MG TAB PO SCH ×2 (08:48→21:19)
[2021-03-08] MEDS: UMECLIDINIUM BROMIDE 62.5MCG/BLISTER 7 PUFFS/INHALER INH SCH (08:49)
[2021-03-08] MEDS: DOCUSATE SODIUM 100 MG CAP PO SCH ×2 (08:52→21:24)
[2021-03-08] MEDS: FLUTICASONE/VILANTEROL 100/25MCG 14 PUFFS/INHALER INH SCH (08:53)
[2021-03-08] MEDS: HEPARIN SOD 5,000 UNIT/0.5 ML VIAL SQ SCH ×2 (08:53→21:17)
[2021-03-08] MEDS: SODIUM BICARBONATE 650 MG TAB PO SCH ×2 (10:03→21:18)
--- NOTE | 2021-03-08 10:16 | XRay Report ---
KUB HISTORY: Generalized abdominal pain. COMPARISON: KUB 02/28/2021. FINDINGS: Mildly dilated gas-filled loops of large and small bowel have improved. There is gas within the rectum. Therefore, these findings favor a resolving ileus. Prior cholecystectomy. There is moder ate stool seen within the colon which is also improved. No renal calculi. No ureteral calculi. No pn eumoperitoneum or pneumatosis. IMPRESSION: Interval improvement in the mildly dilated gas-filled loops of large and small bowel. Therefore, this favors a resolving ileus. ACT 112: Negative or not required by law. Electronically signed by: Dev Hernandez M.D. 03/08/2021 10:15 AM
[2021-03-08] MEDS ORDERED: HYDROmorphone INJ 0.5 MG/0.5 ML SYR IV PRN (14:10)
[2021-03-08] MEDS ORDERED: HYDROmorphone INJ 0.5 MG/0.5 ML SYR IV SCH ×2 (14:15→15:00)
--- NOTE | 2021-03-08 15:29 | Psychiatric Consultation ---
Date of Consultation March 08, 2021 Impression / Recommendations Impression Dr. Darya Stack was directly involved in review and discussion of the patient's case and participated in medical decision making regarding treatment recommendations. RECOMMENDATIONS: 03/08/21 - Psychiatric consultation requested by our hospitalist service to evaluate the patient following statements suggestive of hopelessness and passive SI. - Pt admits that he has been overwhelmed and in significant pain throughout this hospitalization - and admits these factors contributed to statements that "I just want to roll over and ." Pt adamantly denies thoughts or intent to harm himself, citing taoism protective factors and strong desire to be reunited soon with his family in [place]. He is future oriented in conversation. Pt is admittedly frustrated with some of the barriers to treatment he has dealt with recently, but denies acute safety concerns. - Pt agreed to sign ANANYA for [facility] where he states he has been living. He states they take care of administering medications and patient denies access to firearms or other weapons. Will update them regarding patient's recent statements and review safety planning recommendations. - Pt will also be asked to sign an ANANYA for his provider though the [facility] in [place]. We can then fax our consult documentation, as it is recommended that ongoing monitoring of his mood and SI occur. At this time, it does not seem that initiation of antidepressant medications are indicated, nor is patient willing for this. - Pt is denying active SI and other acute psychiatric symptoms. There is not indication for inpatient psychiatric hospitalization. Please reach out to our service with any additional questions or updates. Risk Factors Assessment Do You Have Access To A Gun?: No Psych History Identifying Data 70-year-old male admitted medically on 02/28/21 after presenting to the ED with complaints of abdominal pain. Psychiatric consultation requested today after patient had verbalized passive wishes in response to hearing his pain may be chronic. Chief Complaint "Are you gonna tell me I'm crazy?" History of Present Illness Alfredo Willis is a 70-year-old male admitted medically on 02/28/21 after presenting to the ED with complaints of abdominal pain. He reports a history of several recent hospitalizations related to GI bleed and anemia. Hospitalization was reported to be from 01/06/21 - 02/13/21. 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 Numerous speciality services have been consulted during this admission, and patient was reportedly told today that there may be a possibility that he will deal with some level of chronic abdominal pain. Psychiatric consultation was requested as he had reportedly indicated that if this was the case, he did not want to live anymore. Pt was seen today along with our psychiatric nurse liaison. Pt was cooperative with conversation and was able to share his history of recent hospitalizations. He states he has become overwhelmed with his inability to access outpatient care and is frustrated with his repeated hospitalizations. Pt admits that he had been dealing with significant abdominal pain throughout his hospitalization thus far. He states, however, that "I feels so good today. I've had no pain for the first time since I've been here." Pt admits that he was distressed to hear that he may struggle with chronic abdominal pain, but states "this here is something I can deal with, it still hurts but not near as bad." Pt repeatedly reports statements such as "I don't want to kill myself" and "I'm Baptist, I don't believe in taking my own life." He does admit to a history of 2 events of suicidal intent in the past - one attempted hanging and one plan to jump from the roof of a building, but was interrupted when there was a maintenance groundman on the roof. Pt states both of these have been >30 years ago. Pt did state he was prescribed an antidepressant/antianxiety medication in the early , but states it was related to depression from hepatitis treatment he underwent in the s. This was not continued long-term. Pt is future oriented in conversation, admits to missing his family in [place] and hopes to visit soon. He denies active SI, plan, means, or intent. Pt agreed to sign an A[facility]A for [facility] to allow us to update them on these statements and review safety planning recommendations. Pt denied feeling antidepressant medications were needed and declined therapy. He denied other needs or concerns for our service at this time. Past Psychiatric History Outpatient Services: No current psychiatric services - [facility] [place] Do You Have Access To A Gun?: No History of Previous Suicide Attempt: Yes (planned to jump from building was in terrupted; followed by hanging attempt ) Describe Attempts in the Past: both prior to the ; had SI while in [facility], no act of furtherance Past Medication Trials: Unknown. Pt believes he was prescribed an antidepressant/antianxiety medication in the early after receiving treatment for Hepatitis C - but did not continue the medication chronic specialist. Allergies Allergy/AdvReac Type Severity Reaction Status Date / Time fentanyl AdvReac Severe WENT Verified 02/26/21 10:53 CRAZY, HALLUCINATIONS, BIZARRE BEHAVIOR Home Medications Medication Instructions Recorded Confirmed Type Spiriva Respimat 2 puff INHALATION QAM 08/14/20 02/26/21 History cyanocobalamin (vitamin B-12) 500 mcg PO QAM 08/14/20 02/26/21 History [Vitamin B-12] ferrous sulfate 325 mg PO QAM 08/14/20 02/26/21 History finasteride [Proscar] 5 mg PO QAM 08/14/20 02/26/21 History folic acid 1 mg PO QAM 08/14/20 02/26/21 History tamsulosin 0.4 mg PO QAM 08/14/20 02/26/21 History atorvastatin 20 mg PO QAM 08/23/20 02/26/21 History budesonide-formoterol 2 puff INHALATION BID 08/23/20 02/26/21 History magnesium oxide 420 mg PO QAM 08/23/20 02/26/21 History melatonin 3 mg PO HS PRN 08/23/20 02/26/21 History multivitamin with minerals 1 tab PO QAM 08/23/20 02/26/21 History [Multiple Vitamin-Minerals] docusate sodium [Colace] 100 mg PO BID #60 cap 11/14/20 02/26/21 Rx furosemide 20 mg PO BID 30 Days #60 tab 01/17/21 02/26/21 Rx spironolactone 100 mg PO QAM 30 Days #30 tab 01/17/21 02/26/21 Rx lactulose 20 g PO BID 30 Days #1800 ml 02/22/21 02/26/21 Rx metoprolol tartrate 25 mg PO BID #60 tab 02/22/21 02/26/21 Rx rifaximin [Xifaxan] 550 mg PO BID #60 tab 02/22/21 02/26/21 Rx sodium bicarbonate 650 mg PO BID #60 tab 02/22/21 02/26/21 Rx cholecalciferol (vitamin D3) 25 mcg PO DAILY 02/26/21 02/26/21 History pantoprazole 40 mg PO BID 02/26/21 02/26/21 History sennosides [senna] 8.6 mg PO HS 02/26/21 02/26/21 History Family History Pt admits to a cousin who completed suicide - "he had epilepsy and got made fun of a bit. I guess he got to the point he just couldn't take it no more." Substance Abuse History Pt admits to smoking 3 cigarettes daily, "one after each meal." He denies history of alcohol use since his 20's. Pt admits to a long history of marijuana use - from age 10 until ~1 year ago. Pt admits to experimentation with heroin and cocaine, but no consistent or routine use. Personal History Living Arrangements: Personal Care Facility (resides at [facility]) Employment Status: Retired Marital Status: Single Beliefs That Will Affect Care: Amish (Baptist ) History of Legal Problems: admits to history of being incarcerated Patient History Medical History Acute hypotension Acute kidney injury Acute lower GI bleeding Acute upper gastrointestinal bleeding Aortic aneurysm CAD (coronary artery disease) Follows with [facility] Chronic pain CKD (chronic kidney disease) stage 3, GFR 30-59 ml/min Colitis COPD (chronic obstructive pulmonary disease) Crohn's disease Crushing injury of chest 1970s Depression DM type 2 (diabetes mellitus, type 2) NIDDM Dyslipidemia Esophageal varices Esophageal varices with banding x 3 (most recent approx 1 year ago) Hepatic encephalopathy history of - 2019 History of CVA (cerebrovascular accident) approx 6 years ago; no residual History of hepatitis C History of nephrolithiasis History of prostate cancer dx 1 year ago; radiation History of subdural hematoma HTN (hypertension) Malignant neoplasm of prostate Non-alcoholic cirrhosis Peripheral neuropathy POLST (Physician Orders for Life-Sustaining Treatment) Poor historian history obtained from staff member at [facility] boarding home and pt Tremor Surgical History H/O inguinal hernia repair left side History of aortic aneurysm repair History of cardiac cath [facility] History of cholecystectomy History of cystoscopy History of esophageal surgery as an infant History of facial surgery as a child following injury History of hernia repair multiple S/P coronary artery stent placement Family History Other Family history non-contributory Social History Smoking Status: Current every day smoker Tobacco Type: Cigarettes Cigarettes Per Day: 3; Second Hand Exposure: No; Do You Dip or Chew Tobacco: No; Hx Alcohol Use: No Hx Substance Use: No (used over a year ago.) Preferred Language: Haitian Communication Ability: Effective Utilization Management Manager Required: No Beliefs That Will Affect Care: Spiritual marital status: Single Current Living Situation: Boarding Home Current Living Situation Comment: [facility]. Feels Safe at Home: Yes Safety Concerns: Feels Safe At This Time Assistive Devices: Wheelchair Physical Exam Psychiatric: Orientation: alert, oriented x 3 and cooperative Apperance: appropriately dressed, appropriately groomed and appeared stated age Thin- appearing male, laying in bed in no acute distress. Pt is appropriately dressed for clinical setting, wearing a hospital gown. Pt has white hair and saldivar, appearing decently groomed. Pt wearing corrective lenses. Eye Contact: good eye contact Motor Behavior: no abnormal motor movements (observed while laying in bed) Speech: normal rate/rhythm/volume of speech Affect: + blunted affect Mood: no depressed mood and no anxious mood "Normally I'm just as normal as anyone else" Thought Process: goal directed thought process and clear/coherent thought process Thought Content: reality based without delusions, + hopelessness (intermittently ) and + loneliness Suicidal Thoughts: denies suicidal thoughts, denies suicidal plan and denies suicidal intent admitting to intermittent passive wishes, but no true suicidal ideation, plan, means, or intent. Homicidal Thoughts: denies homicidal thoughts Hallucinations: no auditory hallucinations and no visual hallucinations Cognition: attention grossly intact and language grossly intact Estimated Intelligence: consistent with education level Insight: + fair insight Judgement: + fair judgement Vital Signs (Past 24 Hours): Last Vital Signs Temp 36.4 C L 03/08/21 15:22 Pulse 67 04/22/21 15:22 Resp 18 03/08/21 15:22 BP 115/70 03/08/21 15:22 Pulse Ox 94 03/08/21 15:22 Review of Systems Constitutional: denied Cardiovascular: denied Respiratory: denied Gastrointestinal: reports improvement in abdominal pain, but still persisting discomfort Neurological: denied Psychiatric: denies symptoms other than stated above Total of at least 10 systems reviewed, pertinent positives as above and in HPI. Results & Data (PSY) Medications Administered Acetaminophen (Acetaminophen 325 Mg Tab) 650 mg PO Q6H PRN PRN Reason: pain/fever Stop: 03/28/21 16:45 Last Admin: 03/08/21 08:52 Dose: 650 mg Documented by: [id number] Atorvastatin Calcium (Atorvastatin 20 Mg Tab) 20 mg PO [facility] Stop: 03/29/21 08:59 Last Admin: 03/08/21 08:47 Dose: 20 mg Documented by: [id number] Admin: 03/07/21 09:25 Dose: 20 mg Documented by: [id number] Admin: 03/06/21 08:51 Dose: 20 mg Documented by: [id number] Admin: 03/05/21 09:29 Dose: 20 mg Documented by: [id number] Admin: 03/04/21 09:20 Dose: 20 mg Documented by: [id number] Admin: 03/03/21 09:20 Dose: 20 mg Documented by: [id number] Admin: 03/02/21 09:05 Dose: 20 mg Documented by: [id number] Admin: 03/01/21 07:57 Dose: 20 mg Documented by: [id number] Admin: 02/28/21 11:47 Dose: Not Given Documented by: [id number] Admin: 02/27/21 10:27 Dose: 20 mg Documented by: [id number] Cyanocobalamin (Cyanocobalamin 500 Mcg Tablet (Vitamin B-12)) 500 mcg PO [facility] Stop: 03/29/21 08:59 Last Admin: 03/08/21 08:45 Dose: 500 mcg Documented by: [id number] Admin: 03/07/21 09:25 Dose: 500 mcg Documented by: [id number] Admin: 03/06/21 08:50 Dose: 500 mcg Documented by: [id number] Admin: 03/05/21 09:31 Dose: 500 mcg Documented by: [id number] Admin: 03/04/21 09:22 Dose: 500 mcg Documented by: [id number] Admin: 03/03/21 09:22 Dose: 500 mcg Documented by: [id number] Admin: 03/02/21 09:04 Dose: 500 mcg Documented by: [id number] Admin: 03/01/21 07:56 Dose: 500 mcg Documented by: [id number] Admin: 02/28/21 11:48 Dose: Not Given Documented by: [id number] Admin: 02/27/21 10:27 Dose: 500 mcg Documented by: [id number] Docusate Sodium (Docusate Sodium 100 Mg Cap) 100 mg PO BID [facility] Stop: 03/28/21 20:59 Last Admin: 03/08/21 08:52 Dose: 100 mg Documented by: [id number] Admin: 03/07/21 21:44 Dose: 100 mg Documented by: [id number] Admin: 03/07/21 09:27 Dose: Not Given Documented by: [id number] Admin: 03/06/21 20:03 Dose: 100 mg Documented by: [id number] Admin: 03/06/21 10:12 Dose: 100 mg Documented by: [id number] Admin: 03/05/21 21:31 Dose: Not Given Documented by: [id number] Admin: 03/05/21 09:28 Dose: 100 mg Documented by: [id number] Admin: 03/04/21 19:55 Dose: Not Given Documented by: [id number] Admin: 03/04/21 09:22 Dose: Not Given Documented by: [id number] Admin: 03/03/21 19:49 Dose: Not Given Documented by: [id number] Admin: 03/03/21 09:18 Dose: 100 mg Documented by: [id number] Admin: 03/02/21 21:31 Dose: Not Given Documented by: [id number] Admin: 03/02/21 09:02 Dose: 100 mg Documented by: [id number] Admin: 03/01/21 21:00 Dose: 100 mg Documented by: [id number] Admin: 03/01/21 08:01 Dose: 100 mg Documented by: [id number] Admin: 02/28/21 20:47 Dose: Not Given Documented by: [id number] Admin: 02/28/21 11:46 Dose: Not Given Documented by: [id number] Admin: 02/27/21 21:16 Dose: 100 mg Documented by: [id number] Admin: 02/27/21 10:28 Dose: 100 mg Documented by: [id number] Admin: 02/26/21 20:21 Dose: 100 mg Documented by: [id number] Ferrous Sulfate (Ferrous Sulfate 325 Mg Tab) 325 mg PO QAM [facility] Stop: 03/29/21 08:59 Last Admin: 03/08/21 08:46 Dose: 325 mg Documented by: [id number] Admin: 03/07/21 09:25 Dose: 325 mg Documented by: [id number] Admin: 03/06/21 08:51 Dose: 325 mg Documented by: [id number] Admin: 03/05/21 09:29 Dose: 325 mg Documented by: [id number] Admin: 03/04/21 09:25 Dose: 325 mg Documented by: [id number] Admin: 03/03/21 09:18 Dose: 325 mg Documented by: [id number] Admin: 03/02/21 09:05 Dose: 325 mg Documented by: [id number] Admin: 03/01/21 07:57 Dose: 325 mg Documented by: [id number] Admin: 02/28/21 11:46 Dose: Not Given Documented by: [id number] Admin: 02/27/21 10:27 Dose: 325 mg Documented by: [id number] Finasteride (Finasteride 5 Mg Tab) 5 mg PO QAM [facility] Stop: 03/29/21 08:59 Last Admin: 03/08/21 08:46 Dose: 5 mg Documented by: [id number] Admin: 03/07/21 09:25 Dose: 5 mg Documented by: [id number] Admin: 03/06/21 08:51 Dose: 5 mg Documented by: [id number] Admin: 03/05/21 09:30 Dose: 5 mg Documented by: [id number] Admin: 03/04/21 09:22 Dose: 5 mg Documented by: [id number] Admin: 03/03/21 09:21 Dose: 5 mg Documented by: [id number] Admin: 03/02/21 09:02 Dose: 5 mg Documented by: [id number] Admin: 03/01/21 07:55 Dose: 5 mg Documented by: [id number] Admin: 02/28/21 11:47 Dose: Not Given Documented by: [id number] Admin: 02/27/21 10:26 Dose: 5 mg Documented by: [id number] Fluticasone/Vilanterol (Fluticasone/Vilanterol 100/25mcg 14 Puffs/Inhaler) 1 puffs INH DAILY [facility] Stop: 03/29/21 08:59 Last Admin: 03/08/21 08:53 Dose: 1 puffs Documented by: [id number] Admin: 03/07/21 09:24 Dose: 1 puffs Documented by: [id number] Admin: 03/06/21 08:51 Dose: 1 puffs Documented by: [id number] Admin: 03/05/21 09:28 Dose: 1 puffs Documented by: [id number] Admin: 03/04/21 09:24 Dose: 1 puffs Documented by: [id number] Admin: 03/03/21 09:17 Dose: 1 puffs Documented by: [id number] Admin: 03/02/21 09:07 Dose: 1 puffs Documented by: [id number] Admin: 03/01/21 08:00 Dose: 1 puffs Documented by: [id number] Admin: 02/28/21 12:17 Dose: 1 puffs Documented by: [id number] Admin: 02/27/21 10:28 Dose: 1 puffs Documented by: [id number] Folic Acid (Folic Acid 1 Mg Tab) 1 mg PO QAM [facility] Stop: 03/29/21 08:59 Last Admin: 03/08/21 08:48 Dose: 1 mg Documented by: [id number] Admin: 03/07/21 09:25 Dose: 1 mg Documented by: [id number] Admin: 03/06/21 08:51 Dose: 1 mg Documented by: [id number] Admin: 03/05/21 09:29 Dose: 1 mg Documented by: [id number] Admin: 03/04/21 09:22 Dose: 1 mg Documented by: [id number] Admin: 03/03/21 09:19 Dose: 1 mg Documented by: [id number] Admin: 03/02/21 09:05 Dose: 1 mg Documented by: [id number] Admin: 03/01/21 07:54 Dose: 1 mg Documented by: [id number] Admin: 02/28/21 11:46 Dose: Not Given Documented by: [id number] Admin: 02/27/21 10:27 Dose: 1 mg Documented by: [id number] Furosemide (Furosemide 20 Mg Tab) 20 mg PO BID [facility] Stop: 03/28/21 20:59 Last Admin: 03/08/21 08:45 Dose: 20 mg Documented by: [id number] Admin: 03/07/21 20:42 Dose: 20 mg Documented by: [id number] Admin: 03/07/21 10:24 Dose: 20 mg Documented by: [id number] Admin: 03/06/21 20:04 Dose: 20 mg Documented by: [id number] Admin: 03/01/21 08:01 Dose: 20 mg Documented by: [id number] Admin: 02/28/21 20:47 Dose: Not Given Documented by: [id number] Admin: 02/28/21 11:46 Dose: Not Given Documented by: [id number] Admin: 02/27/21 21:16 Dose: 20 mg Documented by: [id number] Admin: 02/27/21 09:58 Dose: Not Given Documented by: [id number] Admin: 02/26/21 20:21 Dose: 20 mg Documented by: [id number] Heparin Sodium (Porcine) (Heparin Sod 5,000 Unit/0.5 Ml Vial) 5,000 units SQ BID [facility] Stop: 03/28/21 20:59 Last Admin: 03/08/21 08:53 Dose: 5,000 units Documented by: [id number] Admin: 03/07/21 20:38 Dose: 5,000 units Documented by: [id number] Admin: 03/07/21 09:26 Dose: 5,000 units Documented by: [id number] Admin: 03/06/21 20:01 Dose: 5,000 units Documented by: [id number] Admin: 03/06/21 08:52 Dose: 5,000 units Documented by: [id number] Admin: 03/05/21 21:31 Dose: 5,000 units Documented by: [id number] Admin: 03/05/21 09:29 Dose: 5,000 units Documented by: [id number] Admin: 03/04/21 19:55 Dose: 5,000 units Documented by: [id number] Admin: 03/04/21 09:23 Dose: 5,000 units Documented by: [id number] Admin: 03/03/21 20:03 Dose: 5,000 units Documented by: [id number] Admin: 03/03/21 09:23 Dose: 5,000 units Documented by: [id number] Admin: 03/02/21 21:31 Dose: 5,000 units Documented by: [id number] Admin: 03/02/21 09:09 Dose: 5,000 units Documented by: [id number] Admin: 03/01/21 21:01 Dose: 5,000 units Documented by: [id number] Admin: 03/01/21 09:59 Dose: 5,000 units Documented by: [id number] Admin: 02/28/21 21:43 Dose: Not Given Documented by: [id number] Admin: 02/28/21 12:18 Dose: 5,000 units Documented by: [id number] Admin: 02/27/21 21:18 Dose: 5,000 units Documented by: [id number] Admin: 02/27/21 09:59 Dose: Not Given Documented by: [id number] Admin: 02/26/21 20:22 Dose: 5,000 units Documented by: [id number] Hydromorphone HCl (Hydromorphone Inj 0.5 Mg/0.5 Ml Syr) 0.25 mg IV Q8H [facility] Stop: 03/22/21 14:59 Last Admin: 03/08/21 14:56 Dose: 0.25 mg Documented by: [id number] Lactated Ringer's (Lr) 1,000 mls @ 90 mls/hr IV .[id number] [facility] Stop: 03/30/21 17:44 Last Admin: 03/08/21 14:54 Dose: 90 mls/hr Documented by: [id number] Infusion: 03/08/21 11:53 Dose: 90 mls/hr Documented by: [id number] Admin: 03/08/21 00:46 Dose: 90 mls/hr Documented by: [id number] Infusion: 03/07/21 22:34 Dose: 90 mls/hr Documented by: [id number] Infusion: 03/07/21 12:30 Dose: 90 mls/hr Documented by: [id number] Infusion: 03/07/21 11:40 Dose: 0 mls/hr Documented by: [id number] Admin: 03/07/21 10:37 Dose: 90 mls/hr Documented by: [id number] Infusion: 03/07/21 10:37 Dose: 90 mls/hr Documented by: [id number] Admin: 03/07/21 00:06 Dose: 90 mls/hr Documented by: [id number] Infusion: 03/06/21 23:08 Dose: 90 mls/hr Documented by: [id number] Admin: 03/06/21 12:01 Dose: 90 mls/hr Documented by: [id number] Infusion: 03/06/21 12:01 Dose: 90 mls/hr Documented by: [id number] Admin: 03/06/21 07:23 Dose: Not Given Documented by: [id number] Admin: 03/06/21 01:02 Dose: 90 mls/hr Documented by: [id number] Infusion: 03/06/21 01:02 Dose: 90 mls/hr Documented by: [id number] Admin: 03/05/21 14:09 Dose: 90 mls/hr Documented by: [id number] Infusion: 03/05/21 09:06 Dose: 90 mls/hr Documented by: [id number] Admin: 03/04/21 21:59 Dose: 90 mls/hr Documented by: [id number] Infusion: 03/04/21 21:59 Dose: 90 mls/hr Documented by: [id number] Infusion: 03/04/21 17:15 Dose: 90 mls/hr Documented by: [id number] Infusion: 03/04/21 16:39 Dose: 0 mls/hr Documented by: [id number] Admin: 03/04/21 12:40 Dose: 90 mls/hr Documented by: [id number] Infusion: 03/04/21 12:18 Dose: 90 mls/hr Documented by: [id number] Admin: 03/04/21 01:11 Dose: 90 mls/hr Documented by: [id number] Infusion: 03/04/21 00:40 Dose: 90 mls/hr Documented by: [id number] Admin: 03/03/21 13:33 Dose: 90 mls/hr Documented by: [id number] Infusion: 03/03/21 13:15 Dose: 90 mls/hr Documented by: [id number] Admin: 03/03/21 02:08 Dose: 90 mls/hr Documented by: [id number] Infusion: 03/03/21 02:08 Dose: 90 mls/hr Documented by: [id number] Admin: 03/02/21 16:15 Dose: 90 mls/hr Documented by: [id number] Infusion: 03/02/21 14:26 Dose: 90 mls/hr Documented by: [id number] Admin: 03/02/21 03:19 Dose: 90 mls/hr Documented by: [id number] Infusion: 03/02/21 03:19 Dose: 90 mls/hr Documented by: [id number] Admin: 03/01/21 17:03 Dose: 90 mls/hr Documented by: [id number] Infusion: 03/01/21 16:02 Dose: 90 mls/hr Documented by: [id number] Admin: 03/01/21 04:55 Dose: 90 mls/hr Documented by: [id number] Infusion: 03/01/21 04:55 Dose: 90 mls/hr Documented by: [id number] Admin: 02/28/21 18:11 Dose: 90 mls/hr Documented by: [id number] Lactulose (Lactulose Syrup 20 Gm/30 Ml Udc) 20 gm PO BID ELGIN Stop: 04/03/21 20:59 Last Admin: 03/08/21 08:48 Dose: 20 gm Documented by: [id number] Admin: 03/07/21 20:36 Dose: 20 gm Documented by: [id number] Admin: 03/07/21 09:25 Dose: 20 gm Documented by: [id number] Admin: 03/06/21 20:01 Dose: 20 gm Documented by: [id number] Admin: 03/06/21 08:51 Dose: 20 gm Documented by: [id number] Admin: 03/05/21 21:31 Dose: Not Given Documented by: [id number] Admin: 03/05/21 09:28 Dose: 20 gm Documented by: [id number] Admin: 03/04/21 19:56 Dose: 20 gm Documented by: [id number] Magnesium Oxide (Magnesium Oxide 400 Mg Tab) 400 mg PO QAM [facility]; Protocol Stop: 03/29/21 08:59 Last Admin: 03/08/21 08:46 Dose: 400 mg Documented by: [id number] Admin: 03/07/21 09:25 Dose: 400 mg Documented by: [id number] Admin: 03/06/21 08:50 Dose: 400 mg Documented by: [id number] Admin: 03/05/21 09:29 Dose: 400 mg Documented by: [id number] Admin: 03/04/21 09:21 Dose: 400 mg Documented by: [id number] Admin: 03/03/21 09:20 Dose: 400 mg Documented by: [id number] Admin: 03/02/21 09:05 Dose: 400 mg Documented by: [id number] Admin: 03/01/21 07:57 Dose: 400 mg Documented by: [id number] Admin: 02/28/21 11:47 Dose: Not Given Documented by: [id number] Admin: 02/27/21 10:26 Dose: 400 mg Documented by: [id number] Melatonin (Melatonin 3 Mg Tab) 6 mg PO HS PRN PRN Reason: Insomnia Stop: 03/28/21 16:45 Last Admin: 03/07/21 21:44 Dose: 6 mg Documented by: [id number] Methylnaltrexone [place] (Methylnaltrexone [place] 12 Mg/0.6 Ml Vial) 12 mg SQ Q48H ELGIN Stop: 04/06/21 11:59 Last Admin: 03/07/21 12:10 Dose: 12 mg Documented by: [id number] Metoprolol Tartrate (Metoprolol Tartrate 25 Mg Tab) 12.5 mg PO BID ELGIN Stop: 03/28/21 20:59 Last Admin: 03/08/21 08:45 Dose: 12.5 mg Documented by: [id number] Admin: 03/07/21 20:41 Dose: 12.5 mg Documented by: [id number] Admin: 03/07/21 09:25 Dose: 12.5 mg Documented by: [id number] Admin: 03/06/21 20:02 Dose: 12.5 mg Documented by: [id number] Admin: 03/06/21 08:50 Dose: 12.5 mg Documented by: [id number] Admin: 03/05/21 21:31 Dose: 12.5 mg Documented by: [id number] Admin: 03/05/21 09:30 Dose: 12.5 mg Documented by: [id number] Admin: 03/04/21 21:58 Dose: 12.5 mg Documented by: [id number] Admin: 03/04/21 09:23 Dose: 12.5 mg Documented by: [id number] Admin: 03/03/21 20:02 Dose: 12.5 mg Documented by: [id number] Admin: 03/03/21 09:20 Dose: Not Given Documented by: [id number] Admin: 03/02/21 21:35 Dose: 12.5 mg Documented by: [id number] Admin: 03/02/21 09:02 Dose: 12.5 mg Documented by: [id number] Admin: 03/01/21 21:03 Dose: 12.5 mg Documented by: [id number] Admin: 03/01/21 07:58 Dose: 12.5 mg Documented by: [id number] Admin: 02/28/21 20:48 Dose: Not Given Documented by: [id number] Admin: 02/28/21 11:47 Dose: Not Given Documented by: [id number] Admin: 02/27/21 21:17 Dose: 12.5 mg Documented by: [id number] Admin: 02/27/21 09:59 Dose: Not Given Documented by: [id number] Admin: 02/26/21 20:21 Dose: 12.5 mg Documented by: [id number] Multivitamins/Minerals (Cerovite Adv Formula Tab) 1 tab PO QAM ELGIN Stop: 03/29/21 08:59 Last Admin: 03/08/21 08:47 Dose: 1 tab Documented by: [id number] Admin: 03/07/21 09:25 Dose: 1 tab Documented by: [id number] Admin: 03/06/21 08:50 Dose: 1 tab Documented by: [id number] Admin: 03/05/21 09:30 Dose: 1 tab Documented by: [id number] Admin: 03/04/21 09:20 Dose: 1 tab Documented by: [id number] Admin: 03/03/21 09:21 Dose: 1 tab Documented by: [id number] Admin: 03/02/21 09:05 Dose: 1 tab Documented by: [id number] Admin: 03/01/21 07:58 Dose: 1 tab Documented by: [id number] Admin: 02/28/21 11:47 Dose: Not Given Documented by: [id number] Admin: 02/27/21 10:27 Dose: 1 tab Documented by: [id number] Pantoprazole Sodium (Pantoprazole 40 Mg Tab) 40 mg PO BID ELGIN Stop: 03/28/21 20:59 Last Admin: 03/08/21 08:48 Dose: 40 mg Documented by: [id number] Admin: 03/07/21 20:42 Dose: 40 mg Documented by: [id number] Admin: 03/07/21 09:25 Dose: 40 mg Documented by: [id number] Admin: 03/06/21 20:02 Dose: 40 mg Documented by: [id number] Admin: 03/06/21 08:50 Dose: 40 mg Documented by: [id number] Admin: 03/05/21 21:31 Dose: 40 mg Documented by: [id number] Admin: 03/05/21 09:30 Dose: 40 mg Documented by: [id number] Admin: 03/04/21 19:55 Dose: 40 mg Documented by: [id number] Admin: 03/04/21 09:21 Dose: 40 mg Documented by: [id number] Admin: 03/03/21 20:02 Dose: 40 mg Documented by: [id number] Admin: 03/03/21 09:21 Dose: 40 mg Documented by: [id number] Admin: 03/02/21 21:35 Dose: 40 mg Documented by: [id number] Admin: 03/02/21 09:02 Dose: 40 mg Documented by: [id number] Admin: 03/01/21 21:05 Dose: 40 mg Documented by: [id number] Admin: 03/01/21 08:00 Dose: 40 mg Documented by: [id number] Admin: 02/28/21 20:49 Dose: Not Given Documented by: [id number] Admin: 02/28/21 11:48 Dose: Not Given Documented by: [id number] Admin: 02/27/21 21:15 Dose: 40 mg Documented by: [id number] Admin: 02/27/21 10:27 Dose: 40 mg Documented by: [id number] Admin: 02/26/21 20:21 Dose: 40 mg Documented by: [id number] Phenol (Chloraseptic 1.4% Soln 180 Ml Btl) 0 sprays MT TODAY PRN PRN Reason: As Needed for Fever or Pain Stop: 04/04/21 17:39 Last Admin: 03/05/21 18:30 Dose: 1 sprays Documented by: [id number] Rifaximin (Rifaximin 550 Mg Tablet) 550 mg PO BID ELGIN Stop: 03/28/21 20:59 Last Admin: 03/08/21 08:47 Dose: 550 mg Documented by: [id number] Admin: 03/07/21 20:42 Dose: 550 mg Documented by: [id number] Admin: 03/07/21 09:25 Dose: 550 mg Documented by: [id number] Admin: 03/06/21 20:02 Dose: 550 mg Documented by: [id number] Admin: 03/06/21 08:43 Dose: 550 mg Documented by: [id number] Admin: 03/05/21 21:31 Dose: 550 mg Documented by: [id number] Admin: 03/05/21 09:31 Dose: 550 mg Documented by: [id number] Admin: 03/04/21 19:55 Dose: 550 mg Documented by: [id number] Admin: 03/04/21 09:20 Dose: 550 mg Documented by: [id number] Admin: 03/03/21 20:01 Dose: 550 mg Documented by: [id number] Admin: 03/03/21 09:22 Dose: 550 mg Documented by: [id number] Admin: 03/02/21 21:35 Dose: 550 mg Documented by: [id number] Admin: 03/02/21 09:02 Dose: 550 mg Documented by: [id number] Admin: 03/01/21 21:02 Dose: 550 mg Documented by: [id number] Admin: 03/01/21 08:00 Dose: 550 mg Documented by: [id number] Admin: 02/28/21 20:48 Dose: Not Given Documented by: [id number] Admin: 02/28/21 11:48 Dose: Not Given Documented by: [id number] Admin: 02/27/21 21:16 Dose: 550 mg Documented by: [id number] Admin: 02/27/21 10:28 Dose: 550 mg Documented by: [id number] Admin: 02/26/21 20:21 Dose: 550 mg Documented by: [id number] Simethicone (Simethicone 80 Mg Chew) 80 mg PO Q6H ELGIN Stop: 04/01/21 15:59 Last Admin: 03/08/21 10:03 Dose: 80 mg Documented by: [id number] Admin: 03/08/21 03:45 Dose: 80 mg Documented by: [id number] Admin: 03/07/21 20:40 Dose: 80 mg Documented by: [id number] Admin: 03/07/21 18:14 Dose: 80 mg Documented by: [id number] Admin: 03/07/21 09:26 Dose: 80 mg Documented by: [id number] Admin: 03/07/21 03:59 Dose: Not Given Documented by: [id number] Admin: 03/06/21 20:01 Dose: 80 mg Documented by: [id number] Admin: 03/06/21 15:02 Dose: 80 mg Documented by: [id number] Admin: 03/06/21 09:11 Dose: 80 mg Documented by: [id number] Admin: 03/06/21 04:00 Dose: Not Given Documented by: [id number] Admin: 03/05/21 21:31 Dose: 80 mg Documented by: [id number] Admin: 03/05/21 15:47 Dose: 80 mg Documented by: [id number] Admin: 03/05/21 09:31 Dose: 80 mg Documented by: [id number] Admin: 03/05/21 05:15 Dose: 80 mg Documented by: [id number] Admin: 03/04/21 21:58 Dose: 80 mg Documented by: [id number] Admin: 03/04/21 17:15 Dose: 80 mg Documented by: [id number] Admin: 03/04/21 09:26 Dose: 80 mg Documented by: [id number] Admin: 03/04/21 04:30 Dose: 80 mg Documented by: [id number] Admin: 03/03/21 21:39 Dose: 80 mg Documented by: [id number] Admin: 03/03/21 16:15 Dose: 80 mg Documented by: [id number] Admin: 03/03/21 09:29 Dose: 80 mg Documented by: [id number] Admin: 03/03/21 06:08 Dose: 80 mg Documented by: [id number] Admin: 03/02/21 21:35 Dose: 80 mg Documented by: [id number] Admin: 03/02/21 16:14 Dose: 80 mg Documented by: [id number] Sodium Bicarbonate (Sodium Bicarbonate 650 Mg Tab) 650 mg PO BID ELGIN Stop: 03/28/21 20:59 Last Admin: 03/08/21 10:03 Dose: 650 mg Documented by: [id number] Admin: 03/07/21 21:44 Dose: 650 mg Documented by: [id number] Admin: 03/07/21 09:25 Dose: 650 mg Documented by: [id number] Admin: 03/06/21 20:02 Dose: 650 mg Documented by: [id number] Admin: 03/06/21 08:50 Dose: 650 mg Documented by: [id number] Admin: 03/05/21 21:31 Dose: 650 mg Documented by: [id number] Admin: 03/05/21 09:31 Dose: 650 mg Documented by: [id number] Admin: 03/04/21 19:54 Dose: 650 mg Documented by: [id number] Admin: 03/04/21 09:20 Dose: 650 mg Documented by: [id number] Admin: 03/03/21 20:02 Dose: 650 mg Documented by: [id number] Admin: 03/03/21 09:22 Dose: 650 mg Documented by: [id number] Admin: 03/02/21 21:35 Dose: 650 mg Documented by: [id number] Admin: 03/02/21 09:03 Dose: 650 mg Documented by: [id number] Admin: 03/01/21 21:04 Dose: 650 mg Documented by: [id number] Admin: 03/01/21 07:59 Dose: 650 mg Documented by: [id number] Admin: 02/28/21 20:48 Dose: Not Given Documented by: [id number] Admin: 02/28/21 11:48 Dose: Not Given Documented by: [id number] Admin: 02/27/21 21:17 Dose: 650 mg Documented by: [id number] Admin: 02/27/21 10:26 Dose: 650 mg Documented by: [id number] Admin: 02/26/21 20:21 Dose: 650 mg Documented by: [id number] Spironolactone (Spironolactone 100 Mg Tab) 100 mg PO QAM ELGIN Stop: 03/29/21 08:59 Last Admin: 03/08/21 08:46 Dose: 100 mg Documented by: [id number] Admin: 03/07/21 09:25 Dose: 100 mg Documented by: [id number] Admin: 03/06/21 08:51 Dose: 100 mg Documented by: [id number] Admin: 03/05/21 09:28 Dose: 100 mg Documented by: [id number] Admin: 03/04/21 09:24 Dose: 100 mg Documented by: [id number] Admin: 03/03/21 09:18 Dose: 100 mg Documented by: [id number] Admin: 03/02/21 09:05 Dose: 100 mg Documented by: [id number] Admin: 03/01/21 07:56 Dose: 100 mg Documented by: [id number] Admin: 02/28/21 11:45 Dose: Not Given Documented by: [id number] Admin: 02/27/21 10:30 Dose: Not Given Documented by: [id number] Tamsulosin HCl (Tamsulosin Hcl 0.4 Mg Cap) 0.4 mg PO QAM ELGIN Stop: 03/29/21 08:59 Last Admin: 03/08/21 08:47 Dose: 0.4 mg Documented by: [id number] Admin: 03/07/21 09:25 Dose: 0.4 mg Documented by: [id number] Admin: 03/06/21 08:51 Dose: 0.4 mg Documented by: [id number] Admin: 03/05/21 09:28 Dose: 0.4 mg Documented by: [id number] Admin: 03/04/21 09:21 Dose: 0.4 mg Documented by: [id number] Admin: 03/03/21 09:19 Dose: 0.4 mg Documented by: [id number] Admin: 03/02/21 09:05 Dose: 0.4 mg Documented by: [id number] Admin: 03/01/21 07:57 Dose: 0.4 mg Documented by: [id number] Admin: 02/28/21 11:46 Dose: Not Given Documented by: [id number] Admin: 02/27/21 10:27 Dose: 0.4 mg Documented by: [id number] Umeclidinium Kittery (Umeclidinium Kittery 62.5mcg/Blister 7 Puffs/Inhaler) 1 puffs INH DAILY ELGIN; Protocol Stop: 03/29/21 08:59 Last Admin: 03/08/21 08:49 Dose: 1 puffs Documented by: [id number] Admin: 03/07/21 09:25 Dose: 1 puffs Documented by: [id number] Admin: 03/06/21 10:12 Dose: 1 puffs Documented by: [id number] Admin: 03/05/21 09:29 Dose: 1 puffs Documented by: [id number] Admin: 03/04/21 09:24 Dose: 1 puffs Documented by: [id number] Admin: 03/03/21 09:17 Dose: 1 puffs Documented by: [id number] Admin: 03/02/21 09:07 Dose: 1 puffs Documented by: [id number] Admin: 03/01/21 08:00 Dose: 1 puffs Documented by: [id number] Admin: 02/28/21 12:17 Dose: 1 puffs Documented by: [id number] Admin: 02/27/21 10:28 Dose: 1 puffs Documented by: [id number] Vitamin D (Cholecalciferol 1,000 Units 25 Mcg Tab) 1,000 units PO DAILY ELGIN Stop: 03/29/21 08:59 Last Admin: 03/08/21 08:46 Dose: 1,000 units Documented by: [id number] Admin: 03/07/21 09:25 Dose: 1,000 units Documented by: [id number] Admin: 03/06/21 08:50 Dose: 1,000 units Documented by: [id number] Admin: 03/05/21 09:31 Dose: 1,000 units Documented by: [id number] Admin: 03/04/21 09:23 Dose: 1,000 units Documented by: [id number] Admin: 03/03/21 09:22 Dose: 1,000 units Documented by: [id number] Admin: 03/02/21 09:06 Dose: 1,000 units Documented by: [id number] Admin: 03/01/21 07:54 Dose: 1,000 units Documented by: [id number] Admin: 02/28/21 11:48 Dose: Not Given Documented by: [id number] Admin: 02/27/21 10:27 Dose: 1,000 units Documented by: [id number] Coding Level of Care Code 03721 U Intl Hosp Care Lvl 2
[2021-03-08] MEDS: oxyCODONE/ACETAMINOPHEN 5mg/325mg TAB PO SCH (21:15)
[2021-03-09] MEDS: LACTATED RINGER'S 1,000 ML IV SCH ×2 (01:18→14:00)
[2021-03-09] MEDS: SIMETHICONE 80 MG CHEW PO SCH ×2 (05:27→08:41)
[2021-03-09 07:59] LABS: Hematocrit (blood only) 25.9 % (42-52); Hemoglobin 8.6 g/dL (14.0-18.0); Mean Corpuscular Hemoglobin 29.9 pg (25-34); Mean Corpuscular Hgb Conc 33.2 g/dL (32-36); Mean Corpuscular Volume 89.9 fL (80-100); RDW Standard Deviation 63.4 fL (36.4-46.3); Red Blood Count 2.88 M/uL (4.7-6.1); White Blood Count 4.02 K/uL (4.8-10.8)
[2021-03-09 08:06] LABS: Mean Platelet Volume 9.8 fL (7.4-10.4); Platelet Count 92 K/uL (130-400)
[2021-03-09] MEDS: ATORVASTATIN 20 MG TAB PO SCH (08:11)
[2021-03-09] MEDS: FINASTERIDE 5 MG TAB PO SCH (08:11)
[2021-03-09] MEDS: FERROUS SULFATE 325 MG TAB PO SCH (08:11)
[2021-03-09] MEDS: TAMSULOSIN HCL 0.4 MG CAP PO SCH (08:11)
[2021-03-09] MEDS: CEROVITE ADV FORMULA TAB PO SCH (08:11)
[2021-03-09] MEDS: DOCUSATE SODIUM 100 MG CAP PO SCH (08:12)
[2021-03-09] MEDS: METOPROLOL TARTRATE 25 MG TAB PO SCH (08:12)
[2021-03-09] MEDS: SODIUM BICARBONATE 650 MG TAB PO SCH (08:12)
[2021-03-09] MEDS: CHOLECALCIFEROL 1,000 UNITS 25 MCG TAB PO SCH (08:12)
[2021-03-09] MEDS: CYANOCOBALAMIN 500 MCG TABLET (VITAMIN B-12) PO SCH (08:12)
[2021-03-09] MEDS: MAGNESIUM OXIDE 400 MG TAB PO SCH (08:12)
[2021-03-09] MEDS: SPIRONOLACTONE 100 MG TAB PO SCH (08:12)
[2021-03-09] MEDS: FUROSEMIDE 20 MG TAB PO SCH (08:12)
[2021-03-09] MEDS: LACTULOSE SYRUP 20 GM/30 ML UDC PO SCH (08:12)
[2021-03-09] MEDS: FOLIC ACID 1 MG TAB PO SCH (08:12)
[2021-03-09] MEDS: rifAXIMin 550 MG TABLET PO SCH (08:12)
[2021-03-09] MEDS: UMECLIDINIUM BROMIDE 62.5MCG/BLISTER 7 PUFFS/INHALER INH SCH (08:13)
[2021-03-09] MEDS: PANTOprazole 40 MG TAB PO SCH (08:13)
[2021-03-09] MEDS: FLUTICASONE/VILANTEROL 100/25MCG 14 PUFFS/INHALER INH SCH (08:13)
[2021-03-09] MEDS: HEPARIN SOD 5,000 UNIT/0.5 ML VIAL SQ SCH (08:14)
[2021-03-09 08:21] LABS: Anisocytosis Present; Basophils # (auto) 0.04 K/uL (0-0.2); Eosinophils % (auto) 7.5 %; Immature Granulocytes # (auto) 0.01 K/uL (0.00-0.02); Immature Granulocytes % (auto) 0.2 %; Lymphocytes # (auto) 0.56 K/uL (1.2-3.4); Lymphocytes % (auto) 13.9 %; Monocytes # (auto) 0.47 K/uL (0.11-0.59); Monocytes % (auto) 11.7 %; Neutrophils # (auto) 2.64 K/uL (1.4-6.5); Neutrophils % (auto) 65.7 %; Poikilocytosis Present
[2021-03-09 08:31] LABS: Albumin Level 2.4 gm/dl (3.4-5.0); BUN Creatinine Ratio 6.3 (10-20); Calcium 8.7 mg/dl (8.5-10.1); Est GFR (African American) 52.2; Magnesium 1.7 mg/dl (1.8-2.4); Phosphorus 2.7 mg/dl (2.5-4.9); Potassium 3.2 mmol/L (3.5-5.1)
[2021-03-09 08:33] LABS: Albumin Globulin Ratio 0.6 (0.9-2); Bilirubin,Total 1.3 mg/dl (0.2-1); Globulin 3.8 gm/dl (2.5-4.0); Total Protein 6.2 gm/dl (6.4-8.2)
[2021-03-09] MEDS: oxyCODONE/ACETAMINOPHEN 5mg/325mg TAB PO SCH (08:40)
--- NOTE | 2021-03-09 08:47 | Gastroenterology Progress Note ---
Date of Service March 09, 2021 Assessment & Plan (1) Abdominal pain: Abdominal pain: Naltrexone started 03/07/2021 to address possible opiate- induced ileus. KUB obtained 03/08/2021 demonstrated less bowel distension and less stool in colon. Patient wants rectal tube removed - Okay to discontinue rectal tube. ascites --no sbp on cell count and cx neg. HSE--no evidence of encephalopathy---continue rifaximin and lactulose. Please refer to supervising physician addendum for further recommendations. Admission and Anticipated Discharge Date Admission Date: February 28, 2021 Supervising Physician Co-Signing Physician Notes Discussed patient with Rae Carney 03/09/21 but did not see or examine patient. Subjective Patient sitting in bed and talking to nurse. Alert and oriented. States he is angry because he is going to rehab at [facility] in [place]. States abdominal pain continues but is better than it was. Denies nausea or vomiting. States he is hungry and is asking for cream of wheat. Review of Systems Review of Systems: All systems reviewed & are unremarkable except as noted in HPI & below Physical Exam Gastrointestinal (Abdomen): active bowel sounds, distended and tympanic, some guarding but no rebound. Results & Data ([facility]) Vital Signs (Past 12 Hours) Vital Signs Temp Pulse Pulse Resp BP BP Pulse Ox 03/09/21 07:51 36.5 C 69 16 132/84 92 03/09/21 04:58 36.6 C 82 20 121/77 92 03/08/21 23:54 72 03/08/21 23:26 36.5 C 70 20 107/65 94 Laboratory Results - last 24 hr 03/08/21 03/08/21 03/08/21 11:40 16:40 19:56 WBC RBC Hgb Hct MCV MCH MCHC RDW Std Deviation RDW Coeff of Anderson Plt Count MPV Immature Gran % (Auto) Neut % (Auto) Lymph % (Auto) [place] % (Auto) Eos % (Auto) Baso % (Auto) Neut # (Auto) Lymph # (Auto) [place] # (Auto) Eos # (Auto) Baso # (Auto) Immature Gran # (Auto) Poikilocytosis Anisocytosis Sodium Potassium Chloride Carbon Dioxide Anion Gap BUN Creatinine Est Cr Clr Drug Dosing Est GFR ( Amer) Est GFR (Non-Af Amer) BUN/Creatinine Ratio Glucose POC Glucose 129 H 108 H 203 H Calcium Phosphorus Magnesium Total Bilirubin AST ALT Alkaline Phosphatase Total Protein Albumin Globulin Albumin/Globulin Ratio 03/09/21 03/09/21 03/09/21 07:16 07:39 07:39 WBC 4.02 L RBC 2.88 L Hgb 8.6 L Hct 25.9 L MCV 89.9 MCH 29.9 MCHC 33.2 RDW Std Deviation 63.4 H RDW Coeff of Anderson 19.0 H Plt Count 92 L MPV 9.8 Immature Gran % (Auto) 0.2 Neut % (Auto) 65.7 Lymph % (Auto) 13.9 [place] % (Auto) 11.7 Eos % (Auto) 7.5 Baso % (Auto) 1.0 Neut # (Auto) 2.64 Lymph # (Auto) 0.56 L [place] # (Auto) 0.47 Eos # (Auto) 0.30 Baso # (Auto) 0.04 Immature Gran # (Auto) 0.01 Poikilocytosis Present Anisocytosis Present Sodium 144 Potassium 3.2 L Chloride 115 H Carbon Dioxide 18 L Anion Gap 11.0 BUN 10 Creatinine 1.54 H Est Cr Clr Drug Dosing 49.0 Est GFR ( Amer) 52.2 Est GFR (Non-Af Amer) 45.0 BUN/Creatinine Ratio 6.3 L Glucose 112 H POC Glucose 117 H Calcium 8.7 Phosphorus 2.7 Magnesium 1.7 L Total Bilirubin 1.3 H AST 28 ALT 22 Alkaline Phosphatase 83 Total Protein 6.2 L Albumin 2.4 L Globulin 3.8 Albumin/Globulin Ratio 0.6 L 03/08/2021: KUB demonstrated interval improvement in the mildly dilated gas- filled loops of large and small bowel. Favors a resolving ileus. (1) Abdominal pain Abdominal location: generalized Qualified Code(s): R10.84 - Generalized abdominal pain
[2021-03-09] MEDS ORDERED: POTASSIUM CHLORIDE PWD 20 MEQ PACK PO STA (09:10)
--- NOTE | 2021-03-09 09:10 | Hospitalist Progress Note ---
Date of Service March 09, 2021 Assessment & Plan (1) Abdominal pain: Alfredo Willis is a 70 yo male with complex PMHx that includes cirrhosis with ascites and esophogeal varices, recent admission earlier this month for hepatic encephalopathy, hepatitis C, COPD, CKD3 and Crohn's disease who was admitted to [facility] on 02/26/2021 for severe abdominal pain, which is likely multifactorial in etiology. Abdominal Pain Liver history as stated above with recent admission for hepatic encephalopathy, worsening abdominal pain x5 days, CT showing ileus, diagnostic paracentesis ruling out SBP --> suspect ileus as cause of abdominal pain although unclear as to why symptoms are persistent for several days. Only slightly abdominal pain today despite NPO, trial of Realistor yesterday - ileus, in addition to chronic ascites, are likely contributors to what will likely be chronic abdominal pain. - trial of clear liquid diet today, maintain rectal tube - GI on board - appreciate recs - continue Realistor, Rifaximin/Lactulose, Simethicone - continue PT/OT - strict I/Os - Dilaudid 0.25 mg IV Q8H for pain - consider Palliative consult to discuss chronic pain medication regimen to maximize comfort level after discharge - trend CBC daily Passive Suicidal Ideation Patient reports not wanting to continue living with abdominal pain and appears tearful/dysphoric on exam. - Psych consult placed Hepatic Encephalopathy, resolved AMS in context of cirrhosis, recent admission for hepatic encephalopathy, and no recent BMs, Ammonia 39.4 --> hepatic encephalopathy - lactulose enema x2 on 02/28 followed by loose BMx6 - continue Rifaximin/Lactulose PO - follow closely for changes in mental status AMMY on CKD, AMMY resolved - Cr 1.86 --> 2.26 on 03/01 in context of dehydration (NPO, BM x6), suspect pre-renal injury 2/2 this - currently Cr stable at 1.4-1.5 (at chronic baseline) - continue IVFs with LR @90cc/hr - trend BMP daily Chronic Normocytic Anemia - Hgb baseline 8-9 - suspect 2/2 chronic liver disease - trend CBC daily Liver Cirrhosis/Ascites - MELD score of 17 - diagnostic paracentesis without evidence of SBP - continue home regimen of Rifaximin, Lactulose, Spironolactone, Furosemide, sodium bicarb Non-Anion Gap Metabolic Acidosis ABG 02/28: pH 7.42, pCO2 22, HCO3 14; Anion gap 8.0 --> suspect CKD/high ammonium state as cause of acidosis, with respiratory compensation - suspect chronic, no further evaluation at this time COPD - continue home meds CAD - continue Aspirin HTN - continue Lopressor BPH - continue Flomax GERD - continue Protonix FEN/GI: full liquid diet DVT Prophylaxis: Heparin 5000 units SQ BID Code Status: DNR/DNI Disposition: med/surg with tele - transferred to tele status for possible Neostigmine administration tomorrow Admission and Anticipated Discharge Date Admission Date: February 28, 2021 Results & Data Results & Data ([facility]) Vital Signs (Past 12 Hours) Vital Signs Temp Pulse Pulse Resp BP BP Pulse Ox 03/09/21 07:51 36.5 C 69 16 132/84 92 03/09/21 04:58 36.6 C 82 20 121/77 92 03/08/21 23:54 72 03/08/21 23:26 36.5 C 70 20 107/65 94 (1) Abdominal pain Abdominal location: generalized Qualified Code(s): R10.84 - Generalized abdominal pain
[2021-03-09] MEDS: MAGNESIUM SULFATE / D5W 1 GM/100 ML BAG IV SCH ×2 (10:42→11:59)
--- NOTE | 2021-03-09 11:50 | Discharge Summary ---
Date of Service March 09, 2021 Admission HPI Per Admitting Provider Alfredo Willis is a 70-year-old male with esophageal varices, colonic ectasia and liver cirrhosis who presents to the ER with acute onset abdominal pain. The patient reports having sudden onset abdominal [facility]. Not related to any bowel movement. Severity 3/10 currently, 10/10 at worst (at his doctor's and when he first came to the ER. Coming and going intermittently like cramping. He is otherwise feeling well at his baseline mentation. No black or blood in stool. No nausea or vomiting. He has a complex recent medical history which is somewhat fragmented by being hospitalized in different institutions and having outpatient care with the [facility]. He was hospitalized from Jan 06 to February 13, 2021 due to acute GI bleed requiring ICU admission. He underwent colonoscopy 10 days prior to this admission and bleed was coming from bleeding ulceration. s/p 5 units packed RBCs and 1 unit FFP. He was rehospitalized with from February 17- due to unresponsiveness and was diagnosed with hepatic encephalopathy and made a dramatic improvement with lactulose and rifaximin. In the ER Hgb 9.9 from prior 9.4 therefore no bleeding suspected. UA not infective appearing. CT A/P showed rectal wall thickening but given recent procedures this is not surprising, moderate ascites and stable nonocclusive thrombus (similar to CT 11/14/2020). Admission Exam Per Admitting Provider Eyes: + anicteric sclerae Neck: trachea midline, no thyromegaly Respiratory: normal respiratory effort, lungs clear to auscultation Cardiovascular: RRR, no murmur, no edema Gastrointestinal (Abdomen): Inspection/Auscultation: + abdomen distended and normal bowel sounds Percussion/Palpation: + abdomen tender (mild lower abdominal pain on palpation) and abdomen soft; no guarding and abdomen not rigid Musculoskeletal: no cyanosis or clubbing, extremities motor strength 5/5 Skin: no rashes, warm and dry Neurologic: moves all extremities and awake; not confused Psychiatric: A+Ox3, euthymic affect Principal Diagnosis Ileus Discharge Exam General: A+Ox3, cooperative, NAD HEENT: Atraumatic, normocephalic. Pulm: decreased air entry bilaterally, -wheezes, -rales, -rhonchi. Symmetrical chest rise. No increase work of breathing. No respiratory distress. Cardiac: RRR, -mrg. Radial pulses intact and symmetrical. Abdominal: soft, moderately distended, moderate tenderness to palpation in all quadrants without guarding or rebound, NA BS x 4, +fluid wave - exam improved from yesterday Discharge Data Allergies Allergy/AdvReac Type Severity Reaction Status Date / Time fentanyl AdvReac Severe WENT Verified 02/26/21 10:53 CRAZY, HALLUCINATIONS, BIZARRE BEHAVIOR Consultations 02/26/21 14:07 ED Decision to Admit Stat 02/26/21 14:19 Consult Gastroenterology Routine 02/26/21 14:22 Consult Health Information Management Routine 02/28/21 11:47 Consult General Surgery Routine 03/08/21 10:18 Consult Psychiatry Routine Ordered Studies 02/26/21 11:49 CT abd pelvis IV con only Stat 02/27/21 13:00 US paracentesis abd w/image Routine 03/02/21 13:30 US abdomen ltd ascites Urgent 03/03/21 16:33 US duplex mesenteric Routine 03/04/21 13:53 CT abd pelvis oral con only Urgent 03/06/21 13:08 MR lumbar spine wo con Routine MR thoracic spine wo con Routine Hospital Course (1) Abdominal pain: Alfredo Willis is a 70 yo male with complex PMHx that includes cirrhosis with ascites and esophogeal varices, recent admission earlier this month for hepatic encephalopathy, hepatitis C, COPD, CKD3 and Crohn's disease who was admitted to [facility] on 02/26/2021 for severe abdominal pain, likely due to ileus. Discharged on 03/09 with abdominal pain slightly improved from chronic baseline. Abdominal Pain Liver history as stated above with recent admission for hepatic encephalopathy, worsening abdominal pain x5 days, CT showing ileus, diagnostic paracentesis ruling out SBP --> suspect ileus as cause of abdominal pain. Intermittently NPO --> full liquids --> NPO over the course of one week with persistent abdominal pain. Realistor given on 03/07 that led to significant improvement in pain to slightly better than chronic baseline. Suspect ileus, in addition to chronic ascites, are likely contributors to what will likely be chronic abdominal pain. - full liquid diet after discharge - can use Percocet 5/325mg PO - 1/2 pill PRN 2-3 times per day after discharge - continue Rifaximin/Lactulose, Simethicone Hepatic Encephalopathy, resolved AMS on 02/28 in context of cirrhosis, recent admission for hepatic encephalopathy, and no recent BMs, Ammonia 39.4 --> hepatic encephalopathy. Resolved on 03/01. - lactulose enema x2 on 02/28 followed by loose BMx6, resolved - continue Rifaximin/Lactulose PO AMMY on CKD, AMMY resolved - Cr 1.86 --> 2.26 on 03/01 in context of dehydration (NPO, BM x6), suspect pre- renal injury 2/2 this - currently Cr stable at 1.4-1.5 (at chronic baseline) Chronic Normocytic Anemia - Hgb baseline 8-9 - suspect 2/2 chronic liver disease Liver Cirrhosis/Ascites - MELD score of 17 - diagnostic paracentesis without evidence of SBP - continue home regimen of Rifaximin, Lactulose, Spironolactone, Furosemide, sodium bicarb - KCl 20mEq daily after discharge (was intermittently hypokalemic likely due to Lasix) Non-Anion Gap Metabolic Acidosis ABG 02/28: pH 7.42, pCO2 22, HCO3 14; Anion gap 8.0 --> suspect CKD/high ammonium state as cause of acidosis, with respiratory compensation - suspect chronic, no further evaluation at this time COPD - continue home meds CAD - continue Aspirin HTN - continue Lopressor BPH - continue Flomax GERD - continue Protonix Total Time Total Time Spent Total Time Spent (In Minutes): 40 minutes Total Time Includes: Examination of the Patient, Discharge Planning and Medication Reconciliation Discharge Plan Discharge Items Patient Disposition: Home - Home Health Services Reason For Visit: ABD PAIN PROCTITIS Discharge Diagnosis: Ileus Condition on Discharge: Good Activity: Per Instructions section Non-emergency contact: Primary Care Provider and Wire Winding [employer] Tender Call non-emergency contact if: you have any medication questions, your symptoms worsen, your pain is not controlled and you have a fever Follow-up/Referrals: Osmany Molina MD [Primary Care Provider] - (Please call the [facility] to arrange an appt with your PCP ) Diet: Full liquid Addtl Attending Provider Instructions: You were admitted to [facility] on 02/26/2021 for abdominal pain. Initially, there was a concern for an intra-abdominal infection called SBP. You had CT scans of your abdomen that showed chronic cirrhosis (liver disease), and a sample was taken from your ascites (abdominal fluid) which showed no signs of infection. Your abdominal pain was likely due to an ileus (slowed gut motility). You were given IV pain medications throughout the hospitalization to help with your abdominal pain, which helped. Throughout this hospitalization, you were intermittently switched from a liquid diet to complete bowel rest (no food/drink) in order to help with your gut motility. You were also trialed on several medications throughout your hospitalization, and after more than a week of trials, your gut motility seemed to improve. You were advanced to full liquid diet on 03/08 and you tolerated this well. You also had a rectal tube in place and several enemas throughout he hospitalization, to make sure that you could continue to have sufficient bowel movements - you did well with these treatments and the rectal tube was removed on 03/09. You will be discharged on 03/09/2021 in improved, stable condition, with less abdominal pain than you usually have at home at baseline. You should make sure to stick with soft liquids such as soups, apple sauces and other liquids for the next several weeks, as this will help to heal your bowels. You can continue to take a pain medication called Percocet for your abdominal pain: you should take half a pill as needed for pain, and you can take this up to three times per day. If you need extra help with constipation, you can take Miralax over the counter as needed. You can also take Simethicone (Mylicon) over the counter as needed for stomach bloating/pain. Lastly, you should start to take a potassium supplement every morning. You should take all of your other medications as scheduled. We also recommend that you follow up closely with your primary care physician for further management of your medical conditions. We hope you continue to feel better. It was a pleasure to help provide your care while you were hospitalized. Pending Studies at Discharge: No Stand-Alone Forms: [employer], Smoking Cessation Medications and DC Order Prescriptions: New potassium chloride 10 mEq tablet extended release 10 meq PO DAILY Qty: 90 RF: 3 oxycodone-acetaminophen [Percocet] 5-325 mg tablet 0.5 tab PO Q8H Qty: 30 RF: 0 Continued cyanocobalamin (vitamin B-12) [Vitamin B-12] 500 mcg Tablet 500 mcg PO QAM RF: 0 tamsulosin 0.4 mg Capsule 0.4 mg PO QAM RF: 0 ferrous sulfate 325 mg (65 mg iron) Tablet 325 mg PO QAM RF: 0 folic acid 1 mg Tablet 1 mg PO QAM RF: 0 finasteride [Proscar] 5 mg Tablet 5 mg PO QAM RF: 0 Spiriva Respimat 1.25 mcg/actuation Mist 2 puff INHALATION QAM RF: 0 docusate sodium [Colace] 100 mg capsule 100 mg PO BID Qty: 60 RF: 0 spironolactone 100 mg Tablet 100 mg PO QAM 30 Days Qty: 30 RF: 3 furosemide 20 mg Tablet 20 mg PO BID 30 Days Qty: 60 RF: 3 atorvastatin 40 mg Tablet 20 mg PO QAM RF: 0 budesonide-formoterol 160-4.5 mcg/actuation Hfa Aerosol Inhaler 2 puff INHALATION BID RF: 0 magnesium oxide 420 mg Tablet 420 mg PO QAM RF: 0 melatonin 3 mg Tablet 3 mg PO HS PRN (Reason: Insomnia) RF: 0 multivitamin with minerals [Multiple Vitamin-Minerals] Tablet 1 tab PO QAM RF: 0 Xifaxan 550 mg Tablet 550 mg PO BID Qty: 60 RF: 0 metoprolol tartrate 25 mg Tablet 25 mg PO BID Qty: 60 RF: 0 lactulose 20 gram/30 mL Solution 20 g PO BID 30 Days Qty: 1800 RF: 0 sodium bicarbonate 650 mg Tablet 650 mg PO BID Qty: 60 RF: 0 sennosides [senna] 8.6 mg Tablet 8.6 mg PO HS RF: 0 pantoprazole 40 mg Tablet,Delayed Release (Dr/Ec) 40 mg PO BID RF: 0 cholecalciferol (vitamin D3) 25 mcg (1,000 unit) Tablet 25 mcg PO DAILY RF: 0 Discharge Orders: Discharge Order (Routine); Ordered 03/09/21 Ordered By: Harvey Wilkins Admission Data Admit Date/Time: 02/28/21 19:38 Attending Provider: Jimmy Vital Admit Provider: Chris Miller Primary Care Provider: Osmany Molina Other Providers: [facility],Hospital ; [facility] ; Chris Miller ; Diego Hernandez ; Eddie Lpoez Jr ; Selin Wong Other Interventions: Discharge Summary Assessment (RN) Last Done: 03/09/21 14:52 Supervising Physician Co-Signing Physician Notes I also saw the patient and confirmed ivy portions of the history and physical examination. I agree with the impression and plan as noted in the resident discharge summary. Clinical exam today and x-ray from yesterday consistent with a resolving ileus. Patient is tolerating p.o./diet today without nausea or increased abdominal pain. Patient anticipates discharge back to his boarding home facility, and reviewed best options in terms of diet moving forward. Recommend continued outpatient follow-up, within 1 to 2 weeks post discharge. Resident Activity Tracking Resident Involvement: Resident Care Provided Care Provided: Adult [facility]
[2021-03-09] MEDS: METHYLNALTREXONE BROMIDE 12 MG/0.6 ML VIAL SQ SCH (12:15)
== END 2021-03-09 15:24 | disposition home health service (06) | DRG 388 ==
LOC: 3N 10:25 → ED 10:25 → SUATTDRO 14:22 → 3N 16:10 → SUATTDRO 02-28 19:38 → 3N 03-05 03:17 → 2N 03-07 10:26